=== PATIENT | female | born 1970 | race Caucasian/White ===

== ENCOUNTER → 2018-10-21 13:41 | Outpatient (CLI) | payer OTHER, SELFPAY ==
--- NOTE | 2018-10-21 13:50 | CT_ITS ---
STUDY: CT BRAIN WITHOUT CONTRAST REASON FOR EXAM: Female, 48 years old. Frontal headache area, left-sided head x2 months, no injury. RADIATION DOSAGE (If Supplied By Facility): CTDIvol = ( 60.81 ) mGy, DLP = ( 2042.94 ) mGycm TECHNIQUE: Transaxial CT imaging of the brain was performed without administration of intravenous contrast material. Individualized dose optimization techniques were used for this CT. COMPARISON: No relevant priors. FINDINGS: Normal soft tissue structures. Normal calvarium. Normal size ventricles and extra-axial spaces for the patient's age. Normal white matter tracts of the cerebral hemispheres. Normal basal ganglia and thalami. Normal brainstem. Normal cerebellum. There is no intracranial hemorrhage. There are no findings of an acute ischemic infarction. Normal visualized paranasal sinuses. CT/Brain/Head without Contrast IMPRESSION: Normal unenhanced CT scan of the brain. Electronically Signed: Tali Ferreira MD at 7:05 EDT , Service support ,
== END ==
PROVIDERS: Family Provider Family Medicine; PCP Family Medicine; Referring Provider Family Medicine; Visit Provider Family Medicine
DX: R51 Headache (principal)
CPT/HCPCS: 70450

== ENCOUNTER 2021-12-26 02:36 | Observation (INO) | payer OTHER, SELFPAY ==
[2021-12-26 02:38] VITALS: BP 155/95; PULSE 75; RESP 16; TEMP 36.4; O2SAT 99; BMI 32.6
--- NOTE | 2021-12-26 02:47 | CT_ITS ---
STUDY: CT ABDOMEN AND PELVIS WITH CONTRAST REASON FOR EXAM: Female, 51 years old. Left lower quadrant pain and hematochezia RADIATION DOSAGE (If Supplied By Facility): CTDIvol = ( 17.21 ) mGy, DLP = ( 899.48 ) mGycm TECHNIQUE: Transaxial images were obtained from the dome of the diaphragm to the symphysis pubis without oral contrast. IV 100mL Isovue-300 was administered. Sagittal and coronal images were reconstructed. Individualized dose optimization techniques were used for this CT. COMPARISON: None. FINDINGS: The visualized lung bases are unremarkable. The visualized portions of the heart are within normal limits. Normal liver. Normal gallbladder and extrahepatic biliary system. Normal spleen. Normal pancreas. Normal bilateral adrenal glands. Normal right kidney. Normal left kidney. Normal bilateral ureters. Normal visualized stomach. Normal small intestine. Mild concentric mucosal wall thickening of the descending colon with mild associated pericolonic inflammatory stranding. Appendix is surgically absent. Normal abdominal aorta. Normal inferior vena cava. Normal retroperitoneum. Normal urinary bladder. Uterus is surgically absent. Normal abdominal wall. Chronic bilateral L5 pars defects. CT/Abdomen/Pelvis W IV Cont ONLY IMPRESSION: Mild inflammation of the descending colon, potentially representing a colitis. Electronically Signed: Magan Charlton MD at 4:18 EDT ,
--- NOTE | 2021-12-26 02:49 | EDS_ITS ---
HPI HPI - GI History of Present Illness Chief Complaint: Abd Pain Informant: patient and spouse/S.O. Abdominal Pain/Flank Pain Onset: Hours (several) Context: Gradual Onset Timing: Continuous and Waxes and wanes Quality: Aching and Cramping Location: - (across lower abd, worse LLQ) Current Severity: Moderate Maximum Severity: Moderate Worsened by: Nothing Relieved by: Nothing Nausea/Vomiting/Emesis GI Symptom: Positive for Nausea and Vomiting Quality: Positive for Nonbilious; Negative for Blood streaks, Coffee ground or Hematemesis Diarrhea/Melena/Hematochezia GI Symptom: Positive for Diarrhea and Hematochezia; Negative for Melena Onset: Today Stool Quality: Positive for Loose Severity: Moderate Associated Symptoms Associated Symptoms: Negative for Dysuria, Frequency, Hematuria or Urgency Narrative Narrative: Patient started having lower abdominal pain tonight, gradually became worse, associated with nausea and vomiting when this would happen and as well as a bloody loose stool, then the symptoms would ease until they worsened again and she would have another bloody bowel movement. Never had this before. Pain is worse in the left lower quadrant. No urinary symptoms. No shortness of breath. No rectal bleeding in between bloody stools. She has some discomfort in her low back. It is nonlateralizing. No fevers or chills. She has a history of prior laparoscopies for endometriosis, she had a hysterectomy, she had an appendectomy and then had to have another surgery for it for some reason, this was all remote no recent surgeries. [facility] Medical History (Updated 12/26/21 @ 04:[address] Dom Wilkerson MD) Endometriosis GERD (gastroesophageal reflux disease) Reflux esophagitis Home Medications NK 12/26/21 [History Last Taken Unknown] Allergy/AdvReac Type Severity Reaction Status Date / Time No Known Allergies Allergy Verified 12/26/21 02:37 Surgical History (Updated 12/26/21 @ 02:[address] Dom Wilkerson MD) H/O laparoscopy History of appendectomy History of hysterectomy Hx of tonsillectomy Social History Smoking Status: Former smoker ROS ROS ED Constitutional Constitutional ED: Reports malaise; Denies chills or fever(s) Eyes Eyes: Denies change in vision or diplopia ENT ENT ED: Denies rhinorrhea or sore throat Cardiovascular Cardiovascular: Denies chest pain or palpitations Respiratory/Chest Respiratory/Chest: Denies cough or dyspnea Gastrointestinal Gastrointestinal: Reports as per HPI, abdominal pain, diarrhea, hematochezia, nausea and vomiting; Denies melena Genitourinary Genitourinary ED: Denies dysuria or hematuria Musculoskeletal Musculoskeletal: Reports back pain; Denies neck pain Integumentary Denies abscess or rash Neurologic Neurologic: Denies headache(s), paresthesias or weakness Psychiatric Psychiatric: Denies anxiety or suicidal thoughts EXAM Physical Exam Const Vital Signs: 12/26/21 02:38 12/26/21 04:39 Temperature 97.6 F L 97.9 F Temperature Source Temporal Temporal Pulse Rate 75 90 Respiratory Rate 16 16 Blood Pressure 155/95 H 119/73 Blood Pressure Mean 115 88 Pulse Ox 99 96 Oxygen Delivery Method Room Air Room Air Positive well nourished and well developed Constitutional Narrative: Appears malaised but in no distress. Able to talk, but has do most of the talking for her. General Appearance ED: well developed and NAD HEENT Reports moist mucous membranes normocephalic and atraumatic Eyes PERRL and EOMs intact bilaterally Neck full ROM and supple Resp normal respiratory effort and clear to auscultation bilaterally Cardio regular rate, regular rhythm and no murmurs Rate: Negative for tachycardic GI non-distended GI Narrative: Diffuse abdominal tenderness. No guarding or rebound. No pulsatile mass palpable. Auscultation: normoactive bowel sounds Palpation: soft Back/Spine no CVA tenderness General Back: other FROM Extremity normal to inspection General Extremety ED: Negative for edema, pulses abnormal or tenderness General Extremity: Negative for edema or pulses abnormal Neuro oriented x3, CN's II-XII intact bilaterally and no sensory deficits noted Sensorium / Orientation: awake and alert Motor Exam: strength 5/5 throughout Skin no rashes or lesions noted and no wounds MDM MDM MDM Narrative Medical decision making narrative: With her pain and tenderness in the left lower quadrant in addition to rectal bleeding, CT was obtained in addition to basic labs. This showed mildly elevated liver enzymes which are nonspecific, no sign of a biliary obstruction with normal bilirubin, her white blood count is at the high end of normal without bandemia, and CT shows signs of mild descending colitis without evidence of diverticulitis. Her hemoglobin is stable/normal, and her vital signs have been normal. She required retreatment of IV analgesics and antiemetic, and is not feeling well, when offered admission she prefers this. We will treat empirically for possible infection, will start with Cipro & Flagyl. Lab Data Attestation: I reviewed the patient's lab results. Labs: Laboratory Results - last 24 hr 12/26/21 12/26/21 02:58 02:58 WBC 10.1 RBC 4.67 Hgb 13.9 Hct 41.8 MCV 89.5 MCH 29.8 MCHC 33.3 RDW Std Deviation 42.3 RDW Coeff of Ramos 13.0 Plt Count 298 MPV 9.4 Immature Gran % (Auto) 0.500 Neut % (Auto) 73.5 H Lymph % (Auto) 17.6 L [place] % (Auto) 7.3 Eos % (Auto) 0.4 Baso % (Auto) 0.7 Absolute Neuts (auto) 7.4 Absolute Lymphs (auto) 1.77 Nucleated RBC % 0 Sodium 142 Potassium 4.3 Chloride 108 H Carbon Dioxide 26.0 Anion Gap 8 BUN 16 Creatinine 0.98 Estim Creat Clear Calc 56.18 Est GFR (MDRD) Af Amer 76 Est GFR (MDRD) Non-Af 63 BUN/Creatinine Ratio 16.2 Glucose 124 H Calcium 9.5 Total Bilirubin 0.20 AST 43 H ALT 112 H Alkaline Phosphatase 169 H Total Protein 7.3 Albumin 3.6 Globulin 3.7 Albumin/Globulin Ratio 1.0 Lipase 116 Radiography Diagnostic Testing: Clinical Impression(s) from Imaging Studies Abdomen/Pelvis CT 12/26/21 02:47 IMPRESSION: Mild inflammation of the descending colon, potentially representing a colitis. Electronically Signed: Magan Charlton MD at 4:18 EDT , Discharge Plan Dx/Rx/DC Orders Clinical Impression: Acute hemorrhagic colitis Disposition Disposition: [facility]
[2021-12-26] MEDS: Morphine 4 MG/ML Syringe IV ×2 (02:56→04:23)
[2021-12-26] MEDS: 0.9% Normal Saline 1,000 ML 1000 ML IV (02:56)
[2021-12-26] MEDS: Ondansetron 4 MG/2 ML Vial IV (02:56)
[2021-12-26 03:03] LABS: Absolute Lymphocyte Count 1.77 X10^3/uL (0.83-4.51); Absolute Neutrophil Count 7.4 X10^3/uL (2.0-7.7); Basophil# 0.07 X10^3/uL; Basophil% 0.7 % (0-1); Eosinophil# 0.04 X10^3/uL; Eosinophils% 0.4 % (0-5); Hematocrit 41.8 % (37-47); Hemoglobin 13.9 g/dL (12.0-15.0); Lymphocyte # 1.77 X10^3/ul (0.83-4.51); Lymphocyte % 17.6 % (19-41); Mean Corp Hgb Conc 33.3 g/dL (32-36); Mean Corpuscular Hgb 29.8 pg (27.0-32.0); Mean Corpuscular Volume 89.5 fL (81-99); Mean Platelet Vol. 9.4 fl (6.2-12.0); Monocyte# 0.74 X10^3/uL; Monocyte% 7.3 % (0-10); NRBC Flagged by Analyzer 0 % (0-5); Neutrophil % 73.5 % (47-70); Platelet Count 298 K/mm3 (150-450); RBC Distribution Width SD 42.3 fl (35.1-43.9); Red Blood Count 4.67 M/mm3 (4.2-5.4); White Blood Count 10.1 K/mm3 (4.4-11.0)
[2021-12-26 03:20] LABS: AST(SGOT) 43 U/L (15-37); Alanine Aminotransfer ALT/SGPT 112 U/L (13-56); Albumin, Serum 3.6 g/dL (3.2-5.0); Alkaline Phosphatase 169 U/L (45-117); Anion Gap 8 (5-15); BUN 16 mg/dL (7-18); BUN/Creat Ratio 16.2 RATIO (10-20); Calcium,Total 9.5 mg/dL (8.5-10.1); Chloride 108 mmol/L (98-107); Creatinine, Serum 0.98 mg/dL (0.55-1.02); EST Glomerular Filtration Rate 63 mL/min (>60); Est Glom Filt Rate - Afr Amer 76 mL/min (>60); Estimated Creatinine Clearance 56.18 ml/min; Globulin 3.7 g/dL (2.2-4.2); Glucose 124 mg/dL (74-106); Lipase 116 U/L (73-393); Potassium 4.3 mmol/L (3.5-5.1); Protein, Total 7.3 g/dL (6.4-8.2); Sodium Level 142 mmol/L (136-145)
[2021-12-26] MEDS: Metoclopramide 10 MG/2 ML Vial 5 MG IV (04:22)
[2021-12-26 04:39] VITALS: BP 119/73; PULSE 90; RESP 16; TEMP 36.6; O2SAT 96
--- NOTE | 2021-12-26 04:43 | HP.PCM.HOS_ITS ---
HPI - General General Date of Admission: 12/26/21 Date of Service: 12/26/21 Chief Complaint: Abdominal pain HPI Narrative FRANK VENTURA, is a 51 F with a significant history of chronic constipation who presents to the emergency department with abdominal pain. Her abdominal pain is located at the left lumbar region and it radiates to her entire abdomen. She described the pain as sharp. The pain is episodic. The pain worsens with move ments. Of note as patient was coming to the hospital the pain worsened when she hit the bumps. She last ate dinner at [facility]. Although her ate the food at [facility] too he did not have any such symptoms. Of note patient started having hard stools and then it was followed with loose stools. Her stools were mixed with blood. On presentation patient showed pictures of bloody stool. Patient's pain improved with morphine received at emergency department. She reports chills at home. Associated with her symptoms is nausea and vomiting. She described the pain as excruciating. Associated with her symptoms is heartburn.. Patient report that last colonoscopy was about 5 years ago and it was with Dr. Kan. [facility] Medical History (Updated 12/26/21 @ 04:[address] Dom Wilkerson MD) Endometriosis GERD (gastroesophageal reflux disease) Reflux esophagitis Home Medications NK 12/26/21 [History Last Taken Unknown] Allergy/AdvReac Type Severity Reaction Status Date / Time No Known Allergies Allergy Verified 12/26/21 02:37 Family History Other Brain tumor Heart disease Surgical History H/O laparoscopy History of appendectomy History of hysterectomy Hx of tonsillectomy Social History Smoking Status: Former smoker ROS ROS Narrative Pertinent positives and pertinent negatives as noted in HPI. All other systems were reviewed and are negative. Vital Signs Vital Signs Vital Signs: 12/26/21 02:38 12/26/21 04:39 Temperature 97.6 F L 97.9 F Temperature Source Temporal Temporal Pulse Rate 75 90 Respiratory Rate 16 16 Blood Pressure 155/95 H 119/73 Blood Pressure Mean 115 88 Pulse Ox 99 96 Oxygen Delivery Method Room Air Room Air Weight Weight: 83.6 kg Body Mass Index (BMI) 32.6 Physical Exam Narrative Physical exam: General: Well-nourished, well-developed. Head: Normocephalic, atraumatic, no tenderness Eyes: Vision is grossly intact. EOMI ENT, no trauma, moist mucous membranes, no rhinorrhea Neck: Nontender, full range of motion. CVS: Regular rate and rhythm. S1-S2 present. No murmur, gallop or rub. Respiratory : clear to auscultation bilaterally, chest wall nontender, no wheezing Abdomen: Soft, nondistended, normal bowel sounds, no masses : Deferred Back: Nontender, no CVA tenderness. Extremities: Nontender full range of motion, no trauma Skin: Normal color, no trauma, abrasions Neuro: Alert, oriented, cranial nerves II through XII grossly intact. Psychiatry: Normal mood. Normal affect. Not depressed. Not anxious. Results Lab / Micro Data Result Diagrams: 12/26/21 02:58 12/26/21 02:58 Labs: Laboratory Results - last 24 hr 12/26/21 02:58: WBC 10.1, RBC 4.67, Hgb 13.9, Hct 41.8, MCV 89.5, MCH 29.8, MCHC 33.3, RDW Std Deviation 42.3, RDW Coeff of Ramos 13.0, Plt Count 298, MPV 9.4, Immature Gran % (Auto) 0.500, Neut % (Auto) 73.5 H, Lymph % (Auto) 17.6 L, [place] % (Auto) 7.3, Eos % (Auto) 0.4, Baso % (Auto) 0.7, Absolute Neuts (auto) 7.4, Absolute Lymphs (auto) 1.77, Nucleated RBC % 0 12/26/21 02:58: Sodium 142, Potassium 4.3, Chloride 108 H, Carbon Dioxide 26.0, Anion Gap 8, BUN 16, Creatinine 0.98, Estim Creat Clear Calc 56.18, Est GFR (MDRD) Af Amer 76, Est GFR (MDRD) Non-Af 63, BUN/Creatinine Ratio 16.2, Glucose 124 H, Calcium 9.5, Total Bilirubin 0.20, AST 43 H, ALT 112 H, Alkaline Phosphatase 169 H, Total Protein 7.3, Albumin 3.6, Globulin 3.7, Albumin/Globulin Ratio 1.0, Lipase 116 Radiology Impression Abdomen/Pelvis CT 12/26/21 02:47 IMPRESSION: Mild inflammation of the descending colon, potentially representing a colitis. Electronically Signed: Magan Charlton MD at 4:18 EDT , Assessment & Plan Assessment/Plan (1) Acute hemorrhagic colitis: PLAN: Plan Abdomen and pelvis CT was visualized independent interpreted and I agree with radiologist interpretation above. CBC reviewed showed normal white count of 10.1. CMP shows elevated liver enzymes. Trend CMP. Supportive treatment with IV fluids. Shared decision to order clear liquid diet. Ciprofloxacin IV and metronidazole IV ordered at the emergency department and continued. Received morphine IV at emergency department and continued on as needed basis. Enteropathogenic panel ordered. Zofran IV ordered Upon discharge consider referral to GI/Surgery. Of note patient's had colonoscopy about [address] Kan, general surgery. Charges/Coding Visit Charges OBSV E&M: 11079 Initial observation care L3
[2021-12-26] MEDS: Ciprofloxacin 400 MG/200 ML BAG 200 MG IV ×2 (04:46→18:06)
[2021-12-26] MEDS: metroNIDAZOLE 500 MG/100 ML BAG 100 MG IV (04:56)
[2021-12-26] MEDS: 0.9% Normal Saline 1,000 ML 75 ML IV ×2 (06:00→18:06)
[2021-12-26] MEDS: Morphine 2 MG/ML Syringe IV ×4 (06:01→19:49)
[2021-12-26] MEDS: proCHLORPERazine 10 MG/2 ML Vial 5 MG IV ×3 (06:01→19:01)
[2021-12-26 06:05] VITALS: BMI 32.5
[2021-12-26] MEDS: 0.9% Saline Lock 10 ML Syringe IV ×2 (06:43→19:02)
[2021-12-26 09:00] VITALS: BP 98/60; PULSE 78; RESP 18; TEMP 36.8; O2SAT 97
--- NOTE | 2021-12-26 11:05 | CASEMGMT ---
SG SY assessment: Face to Face with patient for initial transition planning/care coordination assessment. SG SY introduced self and role at [facility], pt voices understanding and consents to assessment. Pt is lying in bed in no distress on room air. Pt is A/Ox4 and answers all questions appropriately. Pt's is at bedside during assessment.? Care providers, pharmacy,?and demographics verified. ? Presentation: Abd pain with blood in stool, N/V Admitting dx: Colitis PCP: Douglas Specialists: Lucius surgeon [facility] Insurance: [employer] Prescription Benefit:?[employer] Living Will/HPOA: Pt has LW/HPOA and is aware that they are not on file at [facility]. Pt states her , Chris Alas, is HPOA. LNOK: Chris Alas, /HPOA Living Arrangements: Pt lives with in 2 story home and states no concerns at home. Pt is independent with ADL's. Transportation: Pt drives self and states no transportation concerns. DME/HHC: Pt states no current DME or need for any further DME. Pt states no hx of HHC or SNF. Pt states no concerns with going home at time of discharge. 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 Pt states does not smoke cigarettes or drink ETOH. Pt states no further concerns/needs. CM to follow for any further discharge planning/needs. Advised pt to ask for CM if any further questions/concerns/needs arise, voices understanding. Pt Goal: Home Plan: [place] SG SY
--- NOTE | 2021-12-26 11:10 | CASEMGMT ---
SG SY assessment: Face to Face with patient for initial transition planning/care coordination assessment. SG SY introduced self and role at [facility], pt voices understanding and consents to assessment. Pt is lying in bed in no distress on room air. Pt is A/Ox4 and answers all questions appropriately. Pt's is at bedside during assessment.? Care providers, pharmacy,?and demographics verified. ? Presentation: Abd pain with blood in stool, N/V Admitting dx: Colitis PCP: Douglas Specialists: Lucius surgeon [facility]: [employer] Prescription Benefit:?[employer] Living Will/HPOA: Pt has LW/HPOA and is aware that they are not on file at [facility]. Pt states her , Chris Alas, is HPOA. LNOK: Chris Alas, /HPOA Living Arrangements: Pt lives with in 2 story home and states no concerns at home. Pt is independent with ADL's. Transportation: Pt drives self and states no transportation concerns. DME/HHC: Pt states no current DME or need for any further DME. Pt states no hx of HHC or SNF. Pt states no concerns with going home at time of discharge. 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 Pt states does not smoke cigarettes or drink ETOH. Pt states no further concerns/needs. CM to follow for any further discharge planning/needs. Advised pt to ask for CM if any further questions/concerns/needs arise, voices understanding. Pt Goal: Home Plan: [place] SG SY
[2021-12-26] MEDS: metroNIDAZOLE 500 MG Tablet PO ×2 (13:31→19:56)
[2021-12-26 15:00] VITALS: BP 98/57; PULSE 69; RESP 18; TEMP 36.8; O2SAT 95
[2021-12-26 17:19] VITALS: O2SAT 95
[2021-12-26 20:40] VITALS: BP 98/63; PULSE 87; RESP 16; TEMP 37.1; O2SAT 98
[2021-12-27] MEDS: 0.9% Saline Lock 10 ML Syringe IV (01:48)
[2021-12-27] MEDS: Morphine 2 MG/ML Syringe IV (01:48)
[2021-12-27] MEDS: Ondansetron 4 MG/2 ML Vial IV (01:48)
[2021-12-27 02:30] VITALS: BP 112/74; PULSE 74; RESP 16; TEMP 36.6; O2SAT 98
[2021-12-27] MEDS: Acetaminophen 325 MG Tablet 650 MG PO (05:34)
[2021-12-27] MEDS: metroNIDAZOLE 500 MG Tablet PO (05:34)
[2021-12-27 05:44] LABS: Absolute Lymphocyte Count 1.85 X10^3/uL (0.83-4.51); Absolute Neutrophil Count 5.4 X10^3/uL (2.0-7.7); Basophil# 0.04 X10^3/uL; Basophil% 0.5 % (0-1); Eosinophil# 0.07 X10^3/uL; Eosinophils% 0.9 % (0-5); Hematocrit 35.1 % (37-47); Hemoglobin 11.6 g/dL (12.0-15.0); Lymphocyte # 1.85 X10^3/ul (0.83-4.51); Lymphocyte % 23.1 % (19-41); Mean Corpuscular Hgb 29.1 pg (27.0-32.0); Mean Corpuscular Volume 88.2 fL (81-99); Monocyte% 7.5 % (0-10); NRBC Flagged by Analyzer 0 % (0-5); Neutrophil # 5.42 X10^3/uL (2.7-7.7); Neutrophil % 67.7 % (47-70); Platelet Count 238 K/mm3 (150-450); RBC Distribution Width SD 42.1 fl (35.1-43.9); Red Blood Count 3.98 M/mm3 (4.2-5.4)
--- NOTE | 2021-12-27 05:46 | EKG12_ITS ---
Test Reason : chest pressure Blood Pressure : / mmHG Vent. Rate : 080 BPM Atrial Rate : 080 BPM P-R Int : 134 ms QRS Dur : 078 ms QT Int : 370 ms P-R-T Axes : 049 085 051 degrees QTc Int : 426 ms Normal sinus rhythm Nonspecific ST abnormality Abnormal ECG Confirmed by KATHLEEN TIERNEY, GEOVANNA ([id number]), editor trade journal ISABEL LO ([id number]) on 12/30/2021 10:34:05 AM Referred By: Confirmed By:GEOVANNA WANG MD
--- NOTE | 2021-12-27 05:48 | PCM.PN.BLA ---
Progress Note Nurse reported patient complains of hand swelling. IV fluid discontinued. Also nurse reported the patient has right-sided chest pain. EKG and troponin ordered. Of note on presentation patient had hemorrhagic colitis. No aspirin ordered at this time.
[2021-12-27 06:44] LABS: ALB/GLOB Ratio 0.9 RATIO (0.9-2.4); AST(SGOT) 26 U/L (15-37); Alanine Aminotransfer ALT/SGPT 68 U/L (13-56); Albumin, Serum 2.8 g/dL (3.2-5.0); Alkaline Phosphatase 129 U/L (45-117); Anion Gap 5 (5-15); BUN 9 mg/dL (7-18); BUN/Creat Ratio 11.3 RATIO (10-20); Calcium,Total 8.8 mg/dL (8.5-10.1); Chloride 109 mmol/L (98-107); EST Glomerular Filtration Rate 81 mL/min (>60); Est Glom Filt Rate - Afr Amer 98 mL/min (>60); Estimated Creatinine Clearance 68.82 ml/min; Globulin 3.1 g/dL (2.2-4.2); Glucose 101 mg/dL (74-106); Potassium 3.8 mmol/L (3.5-5.1); Protein, Total 5.9 g/dL (6.4-8.2); Sodium Level 140 mmol/L (136-145)
[2021-12-27 06:54] VITALS: O2SAT 95
[2021-12-27 07:00] LABS: Troponin-I HS 4 pg/mL (3.0-54.0)
[2021-12-27 08:30] VITALS: BP 102/71; PULSE 72; RESP 18; TEMP 36.7; O2SAT 95
[2021-12-27 08:33] LABS: Troponin-I HS 3 pg/mL (3.0-54.0)
[2021-12-27] MEDS: Ciprofloxacin 400 MG/200 ML BAG 200 MG IV (09:17)
--- NOTE | 2021-12-27 09:20 | DCINST_ITS ---
Discharge Instructions Diet Discharge Diet: No restrictions Activity Discharge Activity: Return to Normal Activity Dressing / Incision Call your doctor if you observe: Fever of 101 or Higher, Shortness of breath, Dizziness, Fainting spells, Swelling in the ankles, Chest pain and Increased palpitations (irregular heartbeat) Follow Up Care Test Results: Test results from this visit will be discussed in further detail at your follow- up appointment, if applicable. Discharge Plan Admission Admit Date/Time: 12/26/21 04:47 Attending Provider: Bryan Segura Primary Care Provider: Zacarias Cole Consulting Providers: Avery Salas Instructions Additional Instructions / Restrictions: Follow-up with your primary care doctor in 3 to 5 days to obtain another hemoglobin to monitor your anemia. Discharge Orders/Prescriptions Prescriptions: No Action NK Referrals / Follow Up: Jose Rodriguez DO [STAFF PHYSICIAN] - Within 1 Month Zacarias Cole MD [Primary Care Provider] - Within 1 Week Disposition Disposition (needs filled in before D/C Order can be placed): Home, Self Care
--- NOTE | 2021-12-27 09:31 | PCM.DC.SUM ---
Providers Date of Admission: 12/26/21 Primary Care Physician: Dr. Zacarias Cole MD Reason For Visit: ACUTE HEMORRHAGIC COLITIS Diagnosis Discharge Diagnosis (1) Acute hemorrhagic colitis: Status: Acute Code(s): K52.9 - Noninfective gastroenteritis and colitis, unspecified Medications at Discharge Home Medications ciprofloxacin HCl 500 mg tablet (Cipro) 500 mg PO BID #14 tabs 12/27/21 metronidazole 500 mg tablet 500 mg PO Q8H 7 days #21 tabs 12/27/21 oxycodone 5 mg tablet 5 mg PO TID PRN pain 3 days #10 tabs 12/27/21 Hospital Course Operations None Procedures None Summary of Care Provided Minutes Spent on Discharge: 40 Hospital Course: Per HPI: FRANK VENTURA, is a 51 F with a significant history of chronic constipation who presents to the emergency department with abdominal pain.? Her abdominal pain is located at the left lumbar region? and it radiates to her entire abdomen.? She described the pain as sharp.? The pain is episodic.? The pain worsens with movements.? Of note as patient was coming to the hospital the pain worsened when she hit the bumps. She last ate dinner at [facility].? Although her ate the food at [facility] too he did not have any such symptoms.? Of note patient started having hard stools and then it was followed with loose stools.? Her stools were mixed with blood.? On presentation patient showed pictures of bloody stool. Patient's pain improved with morphine received at emergency department.? She reports chills at home.? Associated with her symptoms is nausea and vomiting.? She described the pain as excruciating.? Associated with her? symptoms is heartburn.. Patient report that last colonoscopy was about 5 years ago and it was with Dr. Kan. Hospital Course: 1. Ischemic versus infectious colitis?51-year-old female presents to the hospital with a left-sided abdominal pain. She denies any bloody emesis however she has been having bloody bowel movements. CT scan was read as a mild colitis on the left side especially in the watershed region. She has almost complete pain resolution today but she still has some bloody bowel movements but no bloody emesis or nausea of any kind. Hemoglobin dropped to 11.6 from 13.9. She is tolerating a light diet and I discussed with her the possibility for discharge today she expressed understanding of the risk benefits going home and wants to go home today. I discussed with her that it may be best to stay 1 more day to follow the hemoglobin however she feels great and wants to go home. I discussed with her and her at length the signs and symptoms of worsening anemia including lightheadedness and dizziness. But also if she notices increased blood in her bowel movements or worsening pain that she is to come back to the hospital. Plan will be for 7 more days of Cipro and Flagyl as well as 3 days of oxycodone for pain control. I recommend that she follow-up with her PCP in 3 to 5days for repeat CBC to monitor her hemoglobin. I also recommended she follow-up with gastroenterology as an outpatient within a month for colonoscopy. She improved faster than anticipated. Physical Exam Const alert, oriented x3 and no apparent distress General Appearance: cooperative HEENT normocephalic and moist oral mucous membranes Eyes PERRL, EOMs intact bilaterally and conjunctivae normal Neck supple and no JVD Resp normal respiratory effort, no retractions, no use of accessory muscles and clear to auscultation bilaterally Auscultation: Negative for crackles, rales, rhonchi or wheezes Cardio regular rate, regular rhythm, S1 normal heart sound, S2 normal heart sound and no murmurs GI soft to palpation, non-tender and non-distended; Negative for hepatosplenomegaly Extremity no clubbing, cyanosis or edema Skin no rashes or lesions noted Neuro no focal motor deficits and no sensory deficits noted Psych affect normal Appearance: appropriate Weight / BMI Weight Weight: 183 lb 10.321 oz Body Mass Index (BMI) 32.5 ABG / Lab / Microbiology Data Result Diagrams: 12/27/21 05:22 12/27/21 05:22 Laboratory: Laboratory Results - last 24 hr 12/27/21 05:22: Sodium 140, Potassium 3.8, Chloride 109 H, Carbon Dioxide 26.0, Anion Gap 5, BUN 9, Creatinine 0.80, Estim Creat Clear Calc 68.82, Est GFR (MDRD) Af Amer 98, Est GFR (MDRD) Non-Af 81, BUN/Creatinine Ratio 11.3, Glucose 101, Calcium 8.8, Total Bilirubin 0.40, AST 26, ALT 68 H, Alkaline Phosphatase 129 H, Total Protein 5.9 L, Albumin 2.8 L, Globulin 3.1, Albumin/Globulin Ratio 0.9 12/27/21 05:22: WBC 8.0, RBC 3.98 L, Hgb 11.6 L, Hct 35.1 L, MCV 88.2, MCH 29.1, MCHC 33.0, RDW Std Deviation 42.1, RDW Coeff of Ramos 13.0, Plt Count 238, MPV 9.0, Immature Gran % (Auto) 0.300, Neut % (Auto) 67.7, Lymph % (Auto) 23.1, Bergen % (Auto) 7.5, Eos % (Auto) 0.9, Baso % (Auto) 0.5, Absolute Neuts (auto) 5.4, Absolute Lymphs (auto) 1.85, Nucleated RBC % 0 12/27/21 05:22: Troponin I High Sens 4 12/27/21 07:47: Troponin I High Sens 3 Microbiology: Microbiology 12/26/21 13:40 Stool Enteric Bacteriology - Final D/C Instructions Discharge Diet: No restrictions Call your doctor if you observe: Fever of 101 or Higher, Shortness of breath, Dizziness, Fainting spells, Swelling in the ankles, Chest pain and Increased palpitations (irregular heartbeat) Meaningful Use Info Meaningful Use Diagnoses (Choose all that apply): None applicable Discharge Plan Admission Admit Date/Time: 12/26/21 04:47 Attending Provider: Bryan Segura Primary Care Provider: Zacarias Cole Consulting Providers: Avery Salas Instructions Additional Instructions / Restrictions: Follow-up with your primary care doctor in 3 to 5 days to obtain another hemoglobin to monitor your anemia. Discharge Orders/Prescriptions Prescriptions: New ciprofloxacin HCl [Cipro] 500 mg tablet 500 mg PO BID Qty: 14 0RF metronidazole 500 mg tablet 500 mg PO Q8H 7 Days Qty: 21 0RF oxycodone 5 mg tablet 5 mg PO TID PRN (Reason: pain) 3 Days Qty: 10 0RF Referrals / Follow Up: Jose Rodriguez DO [STAFF PHYSICIAN] - Within 1 Month Zacarias Cole MD [Primary Care Provider] - Within 1 Week Disposition Disposition (needs filled in before D/C Order can be placed): Home, Self Care Charges/Coding Visit Charges Inpatient E&M: 80717 Disch Hosp
--- NOTE | 2021-12-27 10:04 | PHA.DC.MC ---
Pharmacy Service has performed discharge medication reconciliation and counseling for this patient. 1. CIPROFLOXACIN 500MG PO BID X 7 DAYS 2. METRONIDAZOLE 500MG PO Q8H X 7 DAYS 3. OXYCODONE 5MG PO TID PRN PAIN The patient's discharge medication list was reviewed for discrepancies and discrepancies were resolved. Home Medications ciprofloxacin HCl 500 mg tablet (Cipro) 500 mg PO BID #14 tabs 12/27/21 metronidazole 500 mg tablet 500 mg PO Q8H 7 days #21 tabs 12/27/21 oxycodone 5 mg tablet 5 mg PO TID PRN pain 3 days #10 tabs 12/27/21 The patient was counseled on the following discharge medications and changes in medications for homegoing were reviewed. The Reason for Use, instructions for use, and potential side effects were reviewed for all new medications. The patient's questions regarding all of their medications were answered. The patient was able to verbally demonstrate an understanding of their discharge medications.
== END 2021-12-27 10:24 | disposition home or self-care (01) ==
LOC: ED 04:40 → PCU 05:01
PROVIDERS: Admitting Provider Hospitalist; Emergency Provider Emergency Medicine; PCP Family Medicine; Visit Provider Family Medicine
DX: K52.9 Noninfective gastroenteritis and colitis, unspecified (principal); K62.5 Hemorrhage of anus and rectum; K21.00 Gastro-esophageal reflux disease with esophagitis, without bleeding; R10.814 Left lower quadrant abdominal tenderness; Z87.891 Personal history of nicotine dependence
CPT/HCPCS: 36415; 74177; 80053; 83690; 84484; 85025; 87506; 93005; 96361; 96365; 96366; 96367; 96368; 96375; 96376; 99218; 99284; J7030; J7050; Q9967; A4216; G0378; J0744; J2405

== ENCOUNTER → 2022-02-14 | Outpatient (CLI) | payer OTHER, SELFPAY ==
[2022-02-14 16:10] LABS: Erythrocyte Sedimentation Rate 25 mm/hr (0-30)
[2022-02-14 16:12] LABS: Absolute Lymphocyte Count 1.82 X10^3/uL (0.83-4.51); Absolute Neutrophil Count 3.7 X10^3/uL (2.0-7.7); Basophil# 0.05 X10^3/uL; Basophil% 0.8 % (0-1); Eosinophils% 1.6 % (0-5); Hematocrit 44.8 % (37-47); Hemoglobin 14.7 g/dL (12.0-15.0); Lymphocyte # 1.82 X10^3/ul (0.83-4.51); Lymphocyte % 29.5 % (19-41); Mean Corp Hgb Conc 32.8 g/dL (32-36); Mean Corpuscular Hgb 28.6 pg (27.0-32.0); Mean Corpuscular Volume 87.2 fL (81-99); Mean Platelet Vol. 9.2 fl (6.2-12.0); Monocyte% 8.1 % (0-10); NRBC Flagged by Analyzer 0 % (0-5); Neutrophil # 3.66 X10^3/uL (2.7-7.7); Neutrophil % 59.5 % (47-70); Platelet Count 294 K/mm3 (150-450); RBC Distribution Width CV 12.5 % (11.6-14.6); RBC Distribution Width SD 39.7 fl (35.1-43.9); Red Blood Count 5.14 M/mm3 (4.2-5.4); White Blood Count 6.2 K/mm3 (4.4-11.0)
[2022-02-14 16:45] LABS: ALB/GLOB Ratio 0.9 RATIO (0.9-2.4); AST(SGOT) 21 U/L (15-37); Alanine Aminotransfer ALT/SGPT 37 U/L (13-56); Albumin, Serum 3.6 g/dL (3.2-5.0); Alkaline Phosphatase 129 U/L (45-117); Anion Gap 7 (5-15); BUN 15 mg/dL (7-18); BUN/Creat Ratio 17.7 RATIO (10-20); CPK Total, Creatine Kinase 61 U/L (26-192); CRP 4.04 mg/L (0.0-3.0); Calcium,Total 9.3 mg/dL (8.5-10.1); Chloride 104 mmol/L (98-107); Creatinine, Serum 0.85 mg/dL (0.55-1.02); EST Glomerular Filtration Rate 75 mL/min (>60); Est Glom Filt Rate - Afr Amer 91 mL/min (>60); Glucose 83 mg/dL (74-106); LDH 148 U/L (84-246); Potassium 3.9 mmol/L (3.5-5.1); Protein, Total 7.6 g/dL (6.4-8.2); Sodium Level 138 mmol/L (136-145)
== END | disposition home or self-care (01) ==
LOC: LAB 15:10
PROVIDERS: PCP Family Medicine; Referring Provider Nurse Practitioner Adult Health; Visit Provider Nurse Practitioner Adult Health
DX: K55.9 Vascular disorder of intestine, unspecified (principal)
CPT/HCPCS: 36415; 80053; 82550; 83615; 85025; 85652; 86140

== ENCOUNTER 2022-04-21 05:26 | Day surgery (SDC) | payer OTHER, SELFPAY ==
[2022-04-21] VITALS (9 sets, daily range): BP systolic 101–119; BP diastolic 67–87; PULSE 71–87; RESP 16–18; TEMP 36.1–36.5; O2SAT 98–100; BMI 33.3
--- NOTE | 2022-04-21 | ESO_PTH ---
PATIENT: FRANK VENTURA LOC: [facility] U#:[id number] AGE/SX: 51/F ROOM: RE04/21/[address]: Dr. Jose Rodriguez DO : 1970 BED: DIS: 04/21/2022 SPEC #: [id number] RECD: 04/21/22 12:10 STATUS: VIKAS JASPAL #: [id number] BRAD: 04/21/22 00:[address]: Jose Rodriguez DEPT: SURGICAL PATHOLOGY RECD BY: Magan Kenney ENTERED: 04/21/22 12:11 SP TYPE: UMA GRECO DR: Dr. Zacarias Cole MD Tissues: A - Esophagus, NOS B - Duodenum, NOS C - Ileum, NOS D - Ascending colon E - COLON BIOPSY Procedures: Special Stain Group II Surgery Specimen Level IV Alcian Blue/PAS (control) HEADER OPERATION: Colonoscopy, EGD ([facility] [place]) with biopsies PRE-OP DIAGNOSIS: Ischemic colitis, GERD, chronic constipation TISSUE SUBMITTED: A ? Distal esophagus biopsy, B ? Duodenum biopsy, C ? Terminal ileum biopsy, D ? Ascending polyp biopsy, E ? Hepatic flexure polyp biopsy MICROSCOPIC DIAGNOSIS A. Distal esophagus, biopsy: Gastroesophageal junctional mucosa with chronic inflammation. Focal changes of reflux. No evidence of goblet cell metaplasia. See comment. B. Duodenum, biopsy: No pathologic change. C. Terminal ileum, biopsy: No pathologic change. D. Ascending colon polyp, biopsy: Tubular adenoma. E. Colonic polyp at hepatic flexure, biopsy: Tubular adenoma. AM:chadd 04/22/2022 COMMENT A. Alcian blue/PAS stain with matched control supports the above diagnosis. MICROSCOPIC DESCRIPTION Slides are reviewed. GROSS DESCRIPTION A - Received in fixative is one container labeled with the patient's name and designated distal esophagus. The specimen consists of two irregular fragments of light jones soft tissue that in aggregate measure 1 x 0.6 x 0.1 cm. The specimen is totally submitted in one cassette. B - Received in fixative is one container labeled with the patient's name and designated duodenum biopsy. The specimen consists of two irregular fragments of light jones soft tissue that in aggregate measure 1 x 0.3 x 0.1 cm. The specimen is totally submitted in one cassette. C - Received in fixative is one container labeled with the patient's name and designated terminal ileum biopsy. The specimen consists of multiple irregular fragments of light jones soft tissue that in aggregate measure 1 x 0.5 x 0.1 cm. The specimen is totally submitted in one cassette. D - Received in fixative is one container labeled with the patient's name and designated ascending polyp. The specimen consists of two irregular fragments of light jones soft tissue that in aggregate measure 0.6 x 0.3 x 0.1 cm. The specimen is totally submitted in one cassette. E - Received in fixative is one container labeled with the patient's name and designated hepatic flexure polyp biopsy. The specimen consists of one irregular fragment of light jones soft tissue that measures 0.3 x 0.3 x 0.1 cm. The specimen is totally submitted in one cassette. / AM:chadd 04/21/2022 TC:5 CPT: 80681 x5, 22931
[2022-04-21] MEDS: Lactated Ringers 1,000 ML 15 ML IV (06:11)
--- NOTE | 2022-04-21 06:39 | PCM.HP.BLA ---
History and Physical Date of Admission: 04/21/22 RONI VENTURA, is a 51 F who presents to the office today for f/u hospitalization at [facility] 12/26/21-12/27/21 for acute hemorrhagic colitis--ischemic colitis vs infectious colitis. She presented to ED with severe pain left lower abd that radiated throughout the abdomen, blood in stools, nausea, vomiting, chills. CT showed mild colitis on left. Hgb dropped from 13.9 to 11.6. She was discharged on cipro and flagyl x 7 days. Has constipation chronically, worse with menopause, like cement, very difficult to pass, tried miralax w/o relief. lots of bloating and gas, some nausea. Takes omeprazole for GERD. 12/26/21 and 12/27/21 labs: hgb 13.9 --> 11.6 AST 43 --> 26 ALT 112 --> 68 alk phos 169 --> 129 albumin 3.6 --> 2.8 lipase 116 enteric pathogens negative Approx 2001 she had burst appendix, drain placed LLQ, then sick x 6 mos, was discovered that remnant of appendix remained so she had another surgery. Multiple laparoscopies for endometriosis. Had attacks of LLQ pain in 2017 and before. Had hysterectomy, was told left ovary was attached to colon and pelvic floor. 2017 egd and colonoscopy by gen surg--mild gastritis, neg H pylori, neg bhatia's, no pathology in TI or colon. 12/26/21 CT/Abdomen/Pelvis W IV Cont ONLY IMPRESSION: Mild inflammation of the descending colon, potentially representing a colitis. PMH: endometriosis, GERD, RA PSH: appy, hysterectomy, tonsillectomy ROS Const Constitutional: Positive for weakness; No fatigue ENT ENT: No difficulty swallowing Cardio Cardiology: Positive for leg pain with exertion Gastro GI: Positive for abdominal pain, bloating, change in bowel habits, constipation, heartburn, excessive flatus and nausea/dyspepsia; No belching, change in stool character, coffee ground emesis, cramping, diarrhea, difficulty swallowing, feeling full early, incontinent of stools, Vomiting blood/hematemesis, Blood in stool, loose stools, Black,tarry stools, pain with swallowing, vomiting or other Musc Musculoskeletal: Positive for joint pain, back pain, muscle cramps, muscle weakness, numbness, stiffness, tingling, Arthritis, sciatica, restless legs, leg pain at night and leg pain with exertion Skin Skin: Positive for dry skin; No yellowing of the eye or itchy eyes Neuro Neurology: Positive for weakness, numbness, tingling and restless legs Psych Psychiatric: No anxiety and No depression Endo Endocrine: No fatigue Aller/Imm Allergy/Immunologic: No itchy eyes Aiden/Lymp Hematologic/Lymphatic: No easy bleeding or easy bruising Exam Const General: cooperative, comfortable and no acute distress Nutritional Appearance: obese Orientation: alert, awake and oriented x3 HENMT Head: normal to inspection Eyes General: appearance normal, both eyes and all related structures Resp Effort & Inspection: normal respiratory effort GI Inspection: normal to inspection Palpation: soft, no hepatosplenomegaly, no masses and tender (generalized) Skin General: no jaundice Neuro Speech: speech normal Gait: normal gait Quality Reporting Tobacco Screening ([facility] 138) Smoking Status: Former smoker Assessment and Plan Assessment and Plan (1) Ischemic colitis: ?Status:?Acute ?Plan: Case discussed with Dr Rodriguez Classic presentation for ischemic colitis Mineral oil w/ OJ bid for constipation hyoscyamine prn for LLQ pain/cramping, treat spasms in order to try to prevent ischemia CTA abd pel EGD and colonoscopy w/ f/u 2 wks later (2) GERD (gastroesophageal reflux disease): ?Status:?Acute ?Plan: continue ppi, egd as above to eval for bhatia's (3) Chronic constipation: ?Status:?Chronic ?Plan: as above ? ? ? Orders: Orders Comprehensive Metabolic Profil Today K55.9 - Vascular disorder of intestine, unspecified ? CPK Total, Creatine Kinase Today K55.9 - Vascular disorder of intestine, unspecified ? CRP Today K55.9 - Vascular disorder of intestine, unspecified ? LDH Today K55.9 - Vascular disorder of intestine, unspecified ? CBC W/Diff, Automated Today K55.9 - Vascular disorder of intestine, unspecified ? Erythrocyte Sed Rate Today K55.9 - Vascular disorder of intestine, unspecified ? CT ANGIO ABD&PEL W/O&W/DYE Today K55.9 - Vascular disorder of intestine, unspecified ? Medications: New hyoscyamine sulfate 0.125 mg? PO BID-QID PRN 30 tabs 0RF abdominal pain ? ? Discontinued ciprofloxacin HCl (Cipro) ?? Discontinued Reason:? Pt no longer taking 500 mg? PO BID 7 days 14 tabs 0RF ? ? metronidazole ?? Discontinued Reason:? Pt no longer taking 500 mg? PO Q8H 7 days 21 tabs 0RF ? ? oxycodone ?? Discontinued Reason:? Pt no longer taking 5 mg? PO TID 3 days PRN 10 tabs 0RF pain K52.9 - Noninfective gastroenteritis and colitis, unspecified ? Coding Level of Care Code Off vis,new,level 4 Diagnoses Ischemic colitis? K55.9 GERD (gastroesophageal reflux disease)? K21.9 Chronic constipation? K59.09 I have examined the patient and the H&P has been reviewed. There are no clinical changes since date of exam.
--- NOTE | 2022-04-21 07:11 | OP.CCLET_ITS ---
04/21/2022 Zacarias Cole Re : Upper GI endoscopy procedure for Gisela Kerrkelly Cole This procedure was performed on Thursday, April 21, 2022. My impressions and recommendations are as follows: Impressions : - Z-line irregular, 37 cm from the incisors. Biopsied. - Medium-sized hiatal hernia. - Normal second portion of the duodenum. Biopsied. Recommendations : - Discharge patient to home. - Resume previous diet. - Continue present medications. - Await pathology results. My findings are described in the full procedure note, which is enclosed. If I can be of further assistance, please feel free to contact me at . Sincerely, Jose Rodriguez, 04/21/2022 7:10:30 AM This report has been signed electronically.
--- NOTE | 2022-04-21 07:11 | OP.EGD_ITS ---
Patient Name: Gisela Alas Procedure Date: 04/21/2022 6:17 AM Date of : 1970 Age: 51 Procedure: Upper GI endoscopy Indications: Suspected esophageal reflux Providers: Jose Rodriguez DO Medicines: Monitored Anesthesia Care Patient Profile: This is a 51 year old female. Refer to note in patient chart for documentation of history and physical. Patient has symptoms of acute abdominal cramping, acute epigastric abdominal pain and chronic heartburn. Complications: No immediate complications. Procedure: Pre-Anesthesia Assessment: - Prior to the procedure, a History and Physical was performed, and patient medications and allergies were reviewed. The risks and benefits of the procedure and the sedation options and risks were discussed with the patient. All questions were answered and informed consent was obtained. Patient identification and proposed procedure were verified by the physician in the pre-procedure area. Mental Status Examination: alert and oriented. Airway Examination: normal oropharyngeal airway and neck mobility. Respiratory Examination: clear to auscultation. CV Examination: normal. Prophylactic Antibiotics: The patient requires prophylactic antibiotics due to a prior history of acute GI bleeding and for the planned performance of dilation. Prior Anticoagulants: The patient has taken no previous anticoagulant or antiplatelet agents. ASA Grade Assessment: II - A patient with mild systemic disease. After reviewing the risks and benefits, the patient was deemed in satisfactory condition to undergo the procedure. The anesthesia plan was to use monitored anesthesia care (MAC). Immediately prior to administration of medications, the patient was re-assessed for adequacy to receive sedatives. The heart rate, respiratory rate, oxygen saturations, blood pressure, adequacy of pulmonary ventilation, and response to care were monitored throughout the procedure. The physical status of the patient was re-assessed after the procedure. After obtaining informed consent, the endoscope was passed under direct vision. Throughout the procedure, the patient's blood pressure, pulse, and oxygen saturations were monitored continuously. The Colonoscope was introduced through the mouth, and advanced to the second part of duodenum. The upper GI endoscopy was accomplished without difficulty. The patient tolerated the procedure well. Scope In: 6:44:58 AM Scope Out: 6:48:47 AM Total Procedure Duration Time 0 hours 3 minutes 49 seconds Findings: The Z-line was irregular and was found 37 cm from the incisors, along with a distal esophageal ring. Biopsies were taken with a cold forceps for histology. Verification of patient identification for the specimen was done. Estimated blood loss was minimal. A medium-sized hiatal hernia was present. The second portion of the duodenum was normal. Biopsies were taken with a cold forceps for histology. Verification of patient identification for the specimen was done. Estimated blood loss was minimal. Impression: - Z-line irregular, 37 cm from the incisors. Biopsied. - Medium-sized hiatal hernia. - Normal second portion of the duodenum. Biopsied. Recommendation: - Discharge patient to home. - Resume previous diet. - Continue present medications. - Await pathology results. Procedure Code(s): --- Professional --- 40273, Esophagogastroduodenoscopy, flexible, transoral; with biopsy, single or multiple CPT copyright 2017 [employer]. All rights reserved. The codes documented in this report are preliminary and upon senior materials scientist review may be revised to meet current compliance requirements. Jose Rodriguez DO 04/21/2022 7:10:30 AM This report has been signed electronically. Number of Addenda: 0 Note Initiated On: 04/21/2022 6:17 AM
--- NOTE | 2022-04-21 07:15 | OP.COLON_ITS ---
Patient Name: Gisela Alas Procedure Date: 04/21/2022 6:48 AM Date of : 1970 Age: 51 Procedure: Colonoscopy Indications: Screening for colorectal malignant neoplasm Providers: Jose Rodriguez DO Medicines: Monitored Anesthesia Care Patient Profile: This is a 51 year old female. Refer to note in patient chart for documentation of history and physical. Patient has symptoms of acute abdominal cramping, acute epigastric abdominal pain and chronic heartburn. Last Colonoscopy: date unknown. Unable to locate last colonoscopy report. Complications: No immediate complications. Procedure: Pre-Anesthesia Assessment: - Prior to the procedure, a History and Physical was performed, and patient medications and allergies were reviewed. The risks and benefits of the procedure and the sedation options and risks were discussed with the patient. All questions were answered and informed consent was obtained. Patient identification and proposed procedure were verified by the physician in the pre-procedure area. Mental Status Examination: alert and oriented. Airway Examination: normal oropharyngeal airway and neck mobility. Respiratory Examination: clear to auscultation. CV Examination: normal. Prophylactic Antibiotics: The patient requires prophylactic antibiotics due to a prior history of acute GI bleeding and for the planned performance of dilation. Prior Anticoagulants: The patient has taken no previous anticoagulant or antiplatelet agents. ASA Grade Assessment: II - A patient with mild systemic disease. After reviewing the risks and benefits, the patient was deemed in satisfactory condition to undergo the procedure. The anesthesia plan was to use monitored anesthesia care (MAC). Immediately prior to administration of medications, the patient was re-assessed for adequacy to receive sedatives. The heart rate, respiratory rate, oxygen saturations, blood pressure, adequacy of pulmonary ventilation, and response to care were monitored throughout the procedure. The physical status of the patient was re-assessed after the procedure. After I obtained informed consent, the scope was passed under direct vision. Throughout the procedure, the patient's blood pressure, pulse, and oxygen saturations were monitored continuously. The Colonoscope was introduced through the anus and advanced to the terminal ileum. The colonoscopy was performed without difficulty. The patient tolerated the procedure well. The quality of the bowel preparation was good. Scope In: 6:50:30 AM Scope Withdrawal Time 0 hours 9 minutes 18 seconds Scope Out: 7:04:27 AM Total Procedure Duration Time 0 hours 13 minutes 57 seconds Findings: A 5 mm polyp was found in the hepatic flexure ascending colon. The polyp was sessile. The polyp was removed with a cold snare. Resection and retrieval were complete. Verification of patient identification for the specimen was done. Estimated blood loss was minimal. The terminal ileum appeared normal. Biopsies were taken with a cold forceps for histology. Verification of patient identification for the specimen was done. Estimated blood loss was minimal. The exam was otherwise normal throughout the examined colon. Impression: - One 5 mm polyp at the hepatic flexure in the ascending colon, removed with a cold snare. Resected and retrieved. - The examined portion of the ileum was normal. Biopsied. Recommendation: - Discharge patient to home. - Resume previous diet. - Continue present medications. - Await pathology results. - Repeat colonoscopy in 5 years for surveillance. - Return to GI office. Procedure Code(s): --- Professional --- 21634, Colonoscopy, flexible; with removal of tumor(s), polyp(s), or other lesion(s) by snare technique 76639, 59, Colonoscopy, flexible; with biopsy, single or multiple CPT copyright 2017 [employer]. All rights reserved. The codes documented in this report are preliminary and upon natural resource specialist review may be revised to meet current compliance requirements. Jose Rodriguez DO 04/21/2022 7:15:01 AM This report has been signed electronically. Number of Addenda: 0 Note Initiated On: 04/21/2022 6:48 AM
--- NOTE | 2022-04-21 07:15 | OP.CCLET_ITS ---
04/21/2022 Zac[facility] Cole Re : Colonoscopy procedure for Gisela Kerrkelly Cole This procedure was performed on Thursday, April 21, 2022. My impressions and recommendations are as follows: Impressions : - One 5 mm polyp at the hepatic flexure in the ascending colon, removed with a cold snare. Resected and retrieved. - The examined portion of the ileum was normal. Biopsied. Recommendations : - Discharge patient to home. - Resume previous diet. - Continue present medications. - Await pathology results. - Repeat colonoscopy in 5 years for surveillance. - Return to GI office. My findings are described in the full procedure note, which is enclosed. If I can be of further assistance, please feel free to contact me at . Sincerely, Jose Rodriguez, 04/21/2022 7:15:01 AM This report has been signed electronically.
== END 2022-04-21 08:18 | disposition home or self-care (01) ==
LOC: EN 05:28 → AC 05:28
PROVIDERS: PCP Family Medicine; Referring Provider Family Medicine; Visit Provider Internal Medicine Gastroenterology
PROC: 0DJD8ZZ Inspection of Lower Intestinal Tract, Via Natural or Artificial Opening Endoscopic (ICD-10-PCS; CPT 45378; principal; 2022-04-21 06:25)
DX: Z12.11 Encounter for screening for malignant neoplasm of colon (principal); M06.9 Rheumatoid arthritis, unspecified; K55.039 Acute (reversible) ischemia of large intestine, extent unspecified; K44.9 Diaphragmatic hernia without obstruction or gangrene; D12.2 Benign neoplasm of ascending colon; D12.3 Benign neoplasm of transverse colon; K21.9 Gastro-esophageal reflux disease without esophagitis; K59.09 Other constipation; E78.00 Pure hypercholesterolemia, unspecified; Z90.49 Acquired absence of other specified parts of digestive tract; Z90.710 Acquired absence of both cervix and uterus; Z79.899 Other long term (current) drug therapy; Z87.891 Personal history of nicotine dependence
CPT/HCPCS: 45385; 45380; 43239; 88305; 88313; J7120; J2405

== ENCOUNTER → 2022-06-02 | Outpatient (CLI) | payer OTHER, SELFPAY ==
--- NOTE | 2022-06-02 07:17 | CT_ITS ---
STUDY: CTA ABDOMEN AND PELVIS WITH CONTRAST REASON FOR EXAM: Female, 51 years old. Ischemic colitis, lower GI bleed, LLQ pain RADIATION DOSAGE (If Supplied By Facility): CTDIvol = ( 27.97 ) mGy, DLP = ( 1027.98 ) mGycm TECHNIQUE: Transaxial images were obtained from the dome of the diaphragm to the symphysis pubis without oral contrast. IV 100mL Isovue-370 was administered. Sagittal and coronal images were reconstructed. Individualized dose optimization techniques were used for this CT. COMPARISON: Comparison is made with prior study dated 12/26/2021. FINDINGS: The visualized lung bases are unremarkable. The visualized portions of the heart are within normal limits. There is decreased attenuation of the liver consistent with steatosis. Normal gallbladder and extrahepatic biliary system. Normal spleen. Normal pancreas. Normal bilateral adrenal glands. Normal right kidney. Normal left kidney. Normal visualized stomach. Normal small intestine. Normal colon. There are surgical clips in the region of the appendix consistent with a prior appendectomy. Normal abdominal aorta. Normal inferior vena cava. Normal retroperitoneum. Normal urinary bladder. Normal abdominal wall. Normal osseous structures. CT/CT ANGIO ABD&PEL W/O&W/DYE IMPRESSION: Normal enhanced CT of the abdomen and pelvis. Electronically Signed: Chong Alvarez MD at 9:21 EST ,
== END | disposition home or self-care (01) ==
LOC: CT 07:17
PROVIDERS: PCP Family Medicine; Visit Provider Nurse Practitioner Adult Health
DX: K55.9 Vascular disorder of intestine, unspecified (principal); K92.2 Gastrointestinal hemorrhage, unspecified; R10.32 Left lower quadrant pain
CPT/HCPCS: 74174; Q9967; A4216

== ENCOUNTER 2023-06-07 17:29 | Emergency (ER) | payer OTHER, SELFPAY ==
[2023-06-07 17:29] VITALS: BP 136/98; PULSE 92; RESP 17; TEMP 36.2; O2SAT 98; BMI 31.7
== END 2023-06-07 17:41 | disposition left against medical advice (07) ==
LOC: ED 17:45
DX: Z00.00 Encounter for general adult medical examination without abnormal findings (principal)

== ENCOUNTER 2024-04-18 09:09 | Inpatient (IN) | payer OTHER, SELFPAY ==
[2024-04-18 09:10] VITALS: BP 130/88; PULSE 105; RESP 20; TEMP 36.6; O2SAT 98; BMI 31.8
--- NOTE | 2024-04-18 09:25 | CT_ITS ---
STUDY: CT ABDOMEN AND PELVIS WITH CONTRAST REASON FOR EXAM: Female, 53 years old. LLQ abdominal pain with rectal bleeding. RADIATION DOSAGE (If Supplied By Facility): CTDIvol = ( 13.21 ) mGy, DLP = ( 963.94 ) mGycm TECHNIQUE: Transaxial images were obtained from the dome of the diaphragm to the symphysis pubis without oral contrast. IV 100mL Isovue-300 was administered. Sagittal and coronal images were reconstructed. Individualized dose optimization techniques were used for this CT. COMPARISON: Comparison is made with prior study dated December 26, 2021. FINDINGS: The visualized lung bases are unremarkable. The visualized portions of the heart are within normal limits. There is decreased attenuation of the liver consistent with steatosis. Normal gallbladder and extrahepatic biliary system. Normal spleen. Normal pancreas. Normal bilateral adrenal glands. Normal right kidney. Normal left kidney. There is a small hiatal hernia. Normal small intestine. Abnormal appearance of the haustral pattern involving the transverse colon as well as the splenic flexure, descending colon and the rectosigmoid colon suggestive of colitis. There are surgical clips in the region of the appendix consistent with a prior appendectomy. Normal abdominal aorta. Normal inferior vena cava. Normal retroperitoneum. Normal urinary bladder. There is absence of the uterus consistent with a prior hysterectomy. Normal abdominal wall. Normal osseous structures. CT/Abdomen/Pelvis W IV Cont ONLY IMPRESSION: Findings in keeping colitis involving the transverse colon, descending colon as well as the rectosigmoid colon. Electronically Signed: Chong Alvarez MD at 10:51 EDT ,
--- NOTE | 2024-04-18 09:27 | ED.VIS.GI ---
HPI HPI - GI History of Present Illness Chief Complaint: GI Bleed Detail of Chief Complaint: Abdominal pain with rectal bleeding Informant: patient Narrative Narrative: Patient presents to the emergency department with complaint of rectal bleeding and abdominal pain that started around 3 AM. Patient states she started vomiting initially. She then developed left lower quadrant abdominal pain and this morning passed bright red blood per rectum with mucus and loose stool. Patient tells me she had a URI a week ago and took 5 days of Cipro. No history of C. difficile. She has history of ischemic colitis. Last episode like this was in May of last year. She believes it is her ischemic colitis that is the issue. She has been told she has had history of diverticulitis. She sees a acute care physical therapist locally Dr. Rodriguez. She denies fever or chills or sweats. [facility] Medical History Acute hemorrhagic colitis Arthritis Endometriosis Former smoker Gastric reflux GERD (gastroesophageal reflux disease) Heartburn High cholesterol History of echocardiogram History of IBS History of stress test History of ulceration Reflux esophagitis Rheumatoid arthritis Wears glasses Wears hearing aid Home Medications ?Medication ?Instructions ?Recorded ?Last Taken ?Type hyoscyamine sulfate 0.125 mg 0.125 mg PO BID-QID PRN abdominal 10/21/22 04/17/24 Rx disintegrating tablet pain #120 tabs omeprazole 40 mg capsule,delayed 40 mg PO DAILY #90 caps 10/21/22 04/17/24 Rx release semaglutide (weight loss) 1.7 1.7 mg subcut Q7D 04/18/24 04/16/24 History mg/0.75 mL subcutaneous pen injector Allergy/AdvReac Type Severity Reaction Status Date / Time No Known Allergies Allergy Verified 04/18/24 09:10 Family History Father Heart disease Hypertension Hyperlipidemia Thyroid disorder Skin cancer Grandmother Breast cancer Mother Brain cancer Other Brain tumor Surgical History H/O laparoscopy History of appendectomy History of cardiac catheterization History of hysterectomy Hx of foot surgery Hx of tonsillectomy Social History Smoking Status: Former smoker ROS ROS ED Review of Systems ROS Unobtainable: other Constitutional Constitutional ED: Reports lethargy; Denies chills, fever(s), sweats or weight loss Eyes Eyes: Denies blurry vision, change in vision or diplopia ENT ENT ED: Denies rhinorrhea or sore throat Cardiovascular Cardiovascular: Denies chest pain, orthopnea or racing heartbeat Respiratory/Chest Respiratory/Chest: Denies cough, dyspnea, dyspnea on exertion, orthopnea or sputum Gastrointestinal Gastrointestinal: Reports abdominal pain, nausea, vomiting and other Details: Bright red blood per rectum ; Denies diarrhea Genitourinary Genitourinary ED: Denies dysuria, hematuria or urinary frequency Musculoskeletal Musculoskeletal: Denies arthralgias, back pain, myalgias or neck pain Integumentary Denies abscess, Abrasions or rash Neurologic Neurologic: Denies headache(s) or weakness Psychiatric Psychiatric: Denies anxiety, depression or suicidal thoughts Endocrine Endocrinology: Denies polydipsia, polyphagia or polyuria Hematologic/Lymphatic Hematologic/Lymphatic: Denies easy bleeding, easy bruising or lymphadenopathy Allergic/Immunologic Allergic/Immunologic ED: Denies mouth swelling, tongue swelling or urticaria EXAM Physical Exam Const Vital Signs: 04/18/24 09:10 Temperature 98 F Temperature Source Oral Pulse Rate 105 H Respiratory Rate 20 H Blood Pressure 130/88 H Blood Pressure Mean 102 Pulse Ox 98 Positive well nourished and well developed General Appearance ED: well developed and NAD HEENT Reports TM's clear and moist mucous membranes normocephalic and atraumatic; Negative for trauma or tenderness Tympanic Membrane ED: Yes TM's clear Eyes PERRL and EOMs intact bilaterally General Eye ED: Negative for pale conjunctiva or scleral icterus Neck no lymphadenopathy, supple and no JVD General: Negative for tenderness Chest Wall inspection of chest normal and palpation of chest normal Chest: Negative for tenderness Resp normal respiratory effort and clear to auscultation bilaterally Effort and Inspection: Negative for respiratory distress or pain with movement Auscultation: Negative for rhonchi, wheezes or diminished lung sounds Cardio regular rate, regular rhythm, S1 normal heart sound, S2 normal heart sound and no murmurs Peripheral Pulses: pulses 2+ throughout GI normal to inspection, nondistended, normoactive bowel sounds, soft to palpation, non-tender, non-distended and no masses Back/Spine no CVA tenderness and no thoracic nor lumbar tenderness Extremity normal to inspection General Extremety ED: Negative for edema General Extremity: Negative for edema Neuro oriented x3, CN's II-XII intact bilaterally, no sensory deficits noted and gait normal Sensorium / Orientation: awake, alert, oriented to person, oriented to place and oriented to time Motor Exam: strength 5/5 throughout and strength abnormal Psych mental status grossly normal Skin no rashes or lesions noted and no wounds MDM MDM MDM Narrative Medical decision making narrative: Patient presents the emergency department with abdominal pain and rectal bleeding with history of ischemic colitis. Patient already established. She was ordered a liter Mustain fluid bolus and was medicated with morphine and Zofran. CBC with differential obtained showed a white count of 11.5 with hemoglobin of 15.7 and platelet count of 390. Chemistries unremarkable. Lactate was slightly elevated 2.1. CT scan of the abdomen pelvis with IV contrast showed colitis of the transverse colon and descending colon. Patient was given a second dose of morphine. Patient was given Zosyn 4.5 g IV. Case was discussed with hospitalist will evaluate patient for admission. I also discussed case with acute care physical therapist Dr. Rodriguez whom patient sees for similar issues. Lab Data Attestation: I reviewed the patient's lab results. Labs: Laboratory Results - last 24 hr 04/18/24 09:45 WBC 11.5 H RBC 5.44 H Hgb 15.7 H Hct 46.8 MCV 86.0 MCH 28.9 MCHC 33.5 RDW Std Deviation 38.3 RDW Coeff of Ramos 12.4 Plt Count 390 MPV 8.9 Immature Gran % (Auto) 0.400 Neut % (Auto) 86.6 H Lymph % (Auto) 8.9 L Custer % (Auto) 3.5 Eos % (Auto) 0.1 Baso % (Auto) 0.5 Absolute Neuts (auto) 10.0 H Absolute Lymphs (auto) 1.03 Nucleated RBC % 0 Sodium 143 Potassium 4.2 Chloride 109 H Carbon Dioxide 25.0 Anion Gap 9 BUN 15 Creatinine 0.98 Estim Creat Clear Calc 67.12 Est GFR (MDRD) Af Amer 77 Est GFR (MDRD) Non-Af 63 BUN/Creatinine Ratio 15.4 Glucose 110 H Lactic Acid 2.1 H* Calcium 9.6 Blood Type O POSITIVE Antibody Screen NEGATIVE Radiography Diagnostic Testing: Clinical Impression(s) from Imaging Studies Abdomen/Pelvis CT 04/18/24 09:25 IMPRESSION: Findings in keeping colitis involving the transverse colon, descending colon as well as the rectosigmoid colon. Electronically Signed: Chong Alvarez MD at 10:51 EDT , Discharge Plan Triage Chief Complaint: GI Bleed ED Provider: Tyree Marie Dx/Rx/DC Orders Clinical Impression: Ischemic colitis, Abdominal pain, Acute lower GI bleeding Prescriptions: No Action hyoscyamine sulfate 0.125 mg tablet,disintegrating 0.125 mg PO BID-QID PRN (Reason: abdominal pain) Qty: 120 3RF omeprazole 40 mg capsule,delayed release(DR/EC) 40 mg PO DAILY Qty: 90 3RF semaglutide (weight loss) 1.7 mg/0.75 mL pen injector 1.7 mg subcut Q7D Primary Care Provider: Juan Carolina Referrals: Care Physician,No Primary [Non-Staff] - Print Language: Estonian Disposition Disposition: Acute Care Hospital [facility]
[2024-04-18 09:51] LABS: Absolute Lymphocyte Count 1.03 X10^3/uL (0.83-4.51); Basophil# 0.06 X10^3/uL; Basophil% 0.5 % (0-1); Eosinophil# 0.01 X10^3/uL; Eosinophils% 0.1 % (0-5); Hematocrit 46.8 % (37-47); Hemoglobin 15.7 g/dL (12.0-15.0); Lymphocyte # 1.03 X10^3/ul (0.83-4.51); Lymphocyte % 8.9 % (19-41); Mean Corp Hgb Conc 33.5 g/dL (32-36); Mean Corpuscular Hgb 28.9 pg (27.0-32.0); Mean Platelet Vol. 8.9 fl (6.2-12.0); Monocyte% 3.5 % (0-10); NRBC Flagged by Analyzer 0 % (0-5); Neutrophil # 9.97 X10^3/uL (2.7-7.7); Neutrophil % 86.6 % (47-70); Platelet Count 390 K/mm3 (150-450); RBC Distribution Width CV 12.4 % (11.6-14.6); RBC Distribution Width SD 38.3 fl (35.1-43.9); Red Blood Count 5.44 M/mm3 (4.2-5.4); White Blood Count 11.5 K/mm3 (4.4-11.0)
[2024-04-18] MEDS: Morphine 4 MG/ML Syringe IV ×2 (09:53→11:14)
[2024-04-18] MEDS: 0.9% Normal Saline (1000mL) 1,000 ML 999 ML IV (09:53)
[2024-04-18] MEDS: Ondansetron 4 MG/2 ML Vial IV ×2 (09:53→16:48)
[2024-04-18 10:03] LABS: Anion Gap 9 (5-15); BUN 15 mg/dL (7-18); BUN/Creat Ratio 15.4 RATIO (10-20); Calcium,Total 9.6 mg/dL (8.5-10.1); Chloride 109 mmol/L (98-107); Creatinine, Serum 0.98 mg/dL (0.55-1.02); EST Glomerular Filtration Rate 63 mL/min (>60); Est Glom Filt Rate - Afr Amer 77 mL/min (>60); Estimated Creatinine Clearance 67.12 ml/min; Glucose 110 mg/dL (74-106); Potassium 4.2 mmol/L (3.5-5.1); Sodium Level 143 mmol/L (136-145)
[2024-04-18 10:25] LABS: Lactic Acid 2.1 mmol/L (0.4-1.9)
[2024-04-18 11:10] VITALS: BP 129/77; PULSE 82; RESP 15; TEMP 36.1; O2SAT 97
--- NOTE | 2024-04-18 11:10 | HP.PCM.HOS_ITS ---
HPI - General General Date of Admission: 04/18/24 Date of Service: 04/18/24 Chief Complaint: abdominal pain HPI Narrative FRANK VENTURA, is a 53 F with a PMH as outlined who presents via the ED on 04/18/2024 with a complaint of abdominal pain and rectal bleeding. Her symptoms started in the early hours of hte day of admission. It started with the abdominal pain, which was mainly in the left lower quadrant, and subsequently had bright red bleeding per rectum. She admits to a history of ischemic colitis. Vitals in the ED were BP of 129/77, OR of 82, RR of 15 and temp of 96.9F. She was saturating at 97% on room air. CBC showed hb of 15.7, wbc was 11.5 and platelets of 390. Chemistry showed sodium of 143, potassium of 4.2, bicarb of 25 and anion gap of 9. Cr was 0.98. Lactic acid was 2.1. CT of the abdomen and pelvis showed colitis of the transverse colon as well as splenic flexure, descending colon and rectosigmoid colon. She has been admitted to be managed for acute colitis. She was started on IV Zosyn in the ED. [facility] Medical History Acute hemorrhagic colitis Arthritis Endometriosis Former smoker Gastric reflux GERD (gastroesophageal reflux disease) Heartburn High cholesterol History of echocardiogram History of IBS History of stress test History of ulceration Reflux esophagitis Rheumatoid arthritis Wears glasses Wears hearing aid Home Medications ?Medication ?Instructions ?Recorded ?Last Taken ?Type hyoscyamine sulfate 0.125 mg 0.125 mg PO BID-QID PRN abdominal 10/21/22 04/17/24 Rx disintegrating tablet pain #120 tabs omeprazole 40 mg capsule,delayed 40 mg PO DAILY #90 caps 10/21/22 04/17/24 Rx release semaglutide (weight loss) 1.7 1.7 mg subcut Q7D 04/18/24 04/16/24 History mg/0.75 mL subcutaneous pen injector Allergy/AdvReac Type Severity Reaction Status Date / Time No Known Allergies Allergy Verified 04/18/24 09:10 Family History Father Heart disease Hypertension Hyperlipidemia Thyroid disorder Skin cancer Grandmother Breast cancer Mother Brain cancer Other Brain tumor Surgical History H/O laparoscopy History of appendectomy History of cardiac catheterization History of hysterectomy Hx of foot surgery Hx of tonsillectomy Social History Smoking Status: Former smoker ROS Review of Systems ROS Unobtainable: Denies due to encephalopathy Constitutional Constitutional: Reports fatigue, malaise and weakness; Denies anorexia, chills or fever(s) Eyes Eyes: Denies change in vision ENT HEENT: Denies dysphagia, epistaxis, headache(s) or sore throat Cardiovascular Cardiovascular: Denies chest pain, dyspnea on exertion, edema, lightheadedness, orthopnea, palpitations, paroxysmal nocturnal dyspnea, rapid heart rate or syncope Respiratory/Chest Respiratory/Chest: Denies cough, productive cough, shortness of breath at rest or shortness of breath with exertion Gastrointestinal Gastrointestinal: Reports abdominal pain and diarrhea; Denies coffee ground emesis, constipation, dyspepsia or hematemesis Genitourinary Genitourinary: Denies dysuria or urinary frequency Musculoskeletal Musculoskeletal: Denies joint stiffness or joint swelling Neurologic Neurologic: Denies abnormal gait, confusion, dizziness, focal weakness or headache(s) Psychiatric Psychiatric: Denies anxiety or depression Endocrine Endocrinology: Denies change in body appearance Hematologic/Lymphatic Hematologic/Lymphatic: Denies anemia Vital Signs Vital Signs Vital Signs: 04/18/24 09:10 Temperature 98 F Temperature Source Oral Pulse Rate 105 H Respiratory Rate 20 H Blood Pressure 130/88 H Blood Pressure Mean 102 Pulse Ox 98 Weight Weight: 179 lb 11.2 oz Body Mass Index (BMI) 31.8 Physical Exam Const alert, oriented x3, no apparent distress and average body habitus General Appearance: cooperative HEENT normocephalic, head/scalp atraumatic, hearing grossly normal bilaterally and moist oral mucous membranes Mouth: oral and palatal mucosa normal Eyes PERRL, EOMs intact bilaterally and conjunctivae normal Neck no lymphadenopathy and supple Resp normal respiratory effort, no retractions and clear to auscultation bilaterally Cardio regular rate, regular rhythm, S1 normal heart sound, S2 normal heart sound and no murmurs GI normal to inspection, nondistended, normoactive bowel sounds GI Narrative: moderate tenderness in the left lower quadrant. NO guarding or rebound tenderness. Extremity normal to inspection, full ROM and no clubbing, cyanosis or edema Neuro oriented x3, CN's II-XII intact bilaterally, moves all extremities and no focal motor deficits Sensorium / Orientation: awake and alert Motor Exam: strength 5/5 throughout Psych affect normal Results Lab / Micro Data 04/18/24 09:45 04/18/24 09:45 Labs: Laboratory Results - last 24 hr 04/18/24 09:45: WBC 11.5 H, RBC 5.44 H, Hgb 15.7 H, Hct 46.8, MCV 86.0, MCH 28.9, MCHC 33.5, RDW Std Deviation 38.3, RDW Coeff of Ramos 12.4, Plt Count 390, MPV 8.9, Immature Gran % (Auto) 0.400, Neut % (Auto) 86.6 H, Lymph % (Auto) 8.9 L, Barber % (Auto) 3.5, Eos % (Auto) 0.1, Baso % (Auto) 0.5, Absolute Neuts (auto) 10.0 H, Absolute Lymphs (auto) 1.03, Nucleated RBC % 0, Sodium 143, Potassium 4.2, Chloride 109 H, Carbon Dioxide 25.0, Anion Gap 9, BUN 15, Creatinine 0.98, Estim Creat Clear Calc 67.12, Est GFR (MDRD) Af Amer 77, Est GFR (MDRD) Non-Af 63, BUN/Creatinine Ratio 15.4, Glucose 110 H, Lactic Acid 2.1 H*, Calcium 9.6, Blood Type O POSITIVE, Antibody Screen NEGATIVE Imaging Radiology Impression Abdomen/Pelvis CT 04/18/24 09:25 IMPRESSION: Findings in keeping colitis involving the transverse colon, descending colon as well as the rectosigmoid colon. Electronically Signed: Chong Alvarez MD at 10:51 EDT , Assessment & Plan Assessment/Plan (1) Acute lower GI bleeding: (2) Abdominal pain: PLAN: Plan #Acute colitis * Admitted with a complaint of abdominal pain. She also had rectal bleeding. Imaging done showed colitis of the transverse, descending and rectosigmoid colon * States she does have a history of ischemic colitis. * [facility] Keep NPO. Hydrate with IV fluid normal saline 150 cc/h * Lactic acid was also elevated at 2.1. WBCs 11 point. * Started on IV Zosyn. Will continue. * Keep n.p.o. for now to allow for bowel rest. Consult gastroenterology * IV pantoprazole 40 mg twice daily * IV morphine as needed for pain as she is NPO #DVT prophylaxis: SCDs CODE STATUS: Full code * Patient counseled extensively about different types of CODE STATUS including full code, DNR CCA and DNR CCA. * Patient elects to be full code. * Total [id number] time 17 minutes. Charges/Coding Visit Charges Inpatient E&M: 23593 Init Hosp L3 Procedures Hospitalists Procedures: 24188 Advncd Care Plan 30 Min
[2024-04-18] MEDS: Piperacil/Tazobactam 4.5 GM in 0.9% Normal Saline (100mL MB+) 100 ML IV (11:49)
[2024-04-18 11:50] VITALS: BP 135/64; PULSE 72; RESP 16; TEMP 36.7; O2SAT 100
[2024-04-18 12:03] VITALS: BMI 31.8
[2024-04-18 12:22] VITALS: BP 115/79; PULSE 88; RESP 16; TEMP 36.8; O2SAT 98
[2024-04-18] MEDS: 0.9% Normal Saline (1000mL) 1,000 ML 150 ML IV ×2 (13:28→20:18)
[2024-04-18 13:47] LABS: Reflex Lactate? Y
[2024-04-18 15:04] LABS: Lactic Acid 0.9 mmol/L (0.4-1.9)
[2024-04-18] MEDS: Morphine 2 MG/ML Syringe 1 MG IV ×2 (15:25→18:09)
[2024-04-18 16:11] VITALS: BP 112/65; PULSE 84; RESP 16; TEMP 36.8; O2SAT 96
[2024-04-18] MEDS: Bisacodyl 5 MG Tablet 20 MG PO (18:09)
[2024-04-18] MEDS: Polyethylene Glycol 3350 BOWEL PREP PO (19:17)
--- NOTE | 2024-04-18 19:38 | EX.PCM.CON.G ---
HPI Consult Data Date of Consult: 04/18/24 HPI Narrative Reason for Consultation: Lower GI bleeding HPI Narrative: FRANK VENTURA, is a 53 F with a significant history of chronic constipation who presents to the emergency department with abdominal pain.? Her abdominal pain is located at the left lumbar region? and it radiates to her entire abdomen.? She described the pain as sharp.? The pain is episodic.? The pain worsens with movements.? Of note as patient was coming to the hospital the pain worsened when she hit the bumps. Of note patient started having hard stools and then it was followed with loose stools.? Her stools were mixed with blood.? On presentation patient showed pictures of bloody stool. Patient's pain improved with morphine received at emergency department.? She reports chills at home.? Associated with her symptoms is nausea and vomiting.? She described the pain as excruciating.? Associated with her? symptoms is heartburn.. She got a CT scan abdomen pelvis and it showed thickening in the colon. As per the patient she has had at least 5 episodes of ischemic colitis. She is not currently on any blood thinners. [facility] Medical History (Reviewed 10/21/22 @ 14:20 by Shahana Rincon PRICING/SIGNAGE TEAM MEMBER, PRICING/SIGNAGE TEAM MEMBER-C) Acute hemorrhagic colitis Arthritis Endometriosis Former smoker Gastric reflux GERD (gastroesophageal reflux disease) Heartburn High cholesterol History of echocardiogram History of IBS History of stress test History of ulceration Reflux esophagitis Rheumatoid arthritis Wears glasses Wears hearing aid Home Medications ?Medication ?Instructions ?Recorded ?Last Taken ?Type hyoscyamine sulfate 0.125 mg 0.125 mg PO BID-QID PRN abdominal 10/21/22 04/17/24 Rx disintegrating tablet pain #120 tabs omeprazole 40 mg capsule,delayed 40 mg PO DAILY #90 caps 10/21/22 04/17/24 Rx release semaglutide (weight loss) 1.7 1.7 mg subcut Q7D 04/18/24 04/16/24 History mg/0.75 mL subcutaneous pen injector Allergy/AdvReac Type Severity Reaction Status Date / Time No Known Allergies Allergy Verified 04/18/24 09:10 Family History (Reviewed 10/21/22 @ 14:20 by Shahana Rincon PRICING/SIGNAGE TEAM MEMBER, PRICING/SIGNAGE TEAM MEMBER-C) Father Heart disease Hypertension Hyperlipidemia Thyroid disorder Skin cancer Grandmother Breast cancer Mother Brain cancer Other Brain tumor Surgical History (Reviewed 10/21/22 @ 14:20 by Shahana Rincon PRICING/SIGNAGE TEAM MEMBER, PRICING/SIGNAGE TEAM MEMBER-C) H/O laparoscopy History of appendectomy History of cardiac catheterization History of hysterectomy Hx of foot surgery Hx of tonsillectomy Social History Smoking Status: Former smoker ROS Review of Systems ROS Unobtainable: Denies due to encephalopathy Constitutional Constitutional: Reports fatigue, malaise and weakness; Denies anorexia, chills or fever(s) Eyes Eyes: Denies change in vision ENT HEENT: Denies dysphagia, epistaxis, headache(s) or sore throat Cardiovascular Cardiovascular: Denies chest pain, dyspnea on exertion, edema, lightheadedness, orthopnea, palpitations, paroxysmal nocturnal dyspnea, rapid heart rate or syncope Respiratory/Chest Respiratory/Chest: Denies cough, productive cough, shortness of breath at rest or shortness of breath with exertion Gastrointestinal Gastrointestinal: Reports abdominal pain and diarrhea; Denies coffee ground emesis, constipation, dyspepsia or hematemesis Genitourinary Genitourinary: Denies dysuria or urinary frequency Musculoskeletal Musculoskeletal: Denies joint stiffness or joint swelling Neurologic Neurologic: Denies abnormal gait, confusion, dizziness, focal weakness or headache(s) Psychiatric Psychiatric: Denies anxiety or depression Endocrine Endocrinology: Denies change in body appearance Hematologic/Lymphatic Hematologic/Lymphatic: Denies anemia Physical Exam Const alert, oriented x3, no apparent distress and average body habitus General Appearance: cooperative HEENT normocephalic, head/scalp atraumatic, hearing grossly normal bilaterally and moist oral mucous membranes Mouth: oral and palatal mucosa normal Eyes PERRL, EOMs intact bilaterally and conjunctivae normal Neck no lymphadenopathy and supple Resp normal respiratory effort, no retractions and clear to auscultation bilaterally Cardio regular rate, regular rhythm, S1 normal heart sound, S2 normal heart sound and no murmurs GI normal to inspection, nondistended, normoactive bowel sounds GI Narrative: moderate tenderness in the left lower quadrant. NO guarding or rebound tenderness. Extremity normal to inspection, full ROM and no clubbing, cyanosis or edema Neuro oriented x3, CN's II-XII intact bilaterally, moves all extremities and no focal motor deficits Sensorium / Orientation: awake and alert Motor Exam: strength 5/5 throughout Psych affect normal Lab / Micro Data 04/18/24 09:45 04/18/24 09:45 Labs: Laboratory Results - last 24 hr 04/18/24 09:45: WBC 11.5 H, RBC 5.44 H, Hgb 15.7 H, Hct 46.8, MCV 86.0, MCH 28.9, MCHC 33.5, RDW Std Deviation 38.3, RDW Coeff of Ramos 12.4, Plt Count 390, MPV 8.9, Immature Gran % (Auto) 0.400, Neut % (Auto) 86.6 H, Lymph % (Auto) 8.9 L, [place] % (Auto) 3.5, Eos % (Auto) 0.1, Baso % (Auto) 0.5, Absolute Neuts (auto) 10.0 H, Absolute Lymphs (auto) 1.03, Nucleated RBC % 0, Sodium 143, Potassium 4.2, Chloride 109 H, Carbon Dioxide 25.0, Anion Gap 9, BUN 15, Creatinine 0.98, Estim Creat Clear Calc 67.12, Est GFR (MDRD) Af Amer 77, Est GFR (MDRD) Non-Af 63, BUN/Creatinine Ratio 15.4, Glucose 110 H, Lactic Acid 2.1 H*, Calcium 9.6, Blood Type O POSITIVE, Antibody Screen NEGATIVE 04/18/24 14:10: Lactic Acid 0.9 Imaging Radiology Impression Abdomen/Pelvis CT 04/18/24 09:25 IMPRESSION: Findings in keeping colitis involving the transverse colon, descending colon as well as the rectosigmoid colon. Electronically Signed: Chong Alvarez MD at 10:51 EDT , Assessment & Plan Assessment/Plan (1) Acute hemorrhagic colitis: PLAN: Plan 53-year-old on semaglutide who presents with appears to be recurrent ischemic colitis. She has a history of low blood pressure that developed after hysterectomy. Differential diagnosis does include adrenal insufficiency, hypercoagulable state, medication side effect. She had a abdomen and pelvis CT that displayed diffuse thickening throughout the colon. We went over the natural history of his acute recurrent ischemic colitis on the right side of colon versus left-sided colon. Recommendation : -Stool studies to make sure this is not infectious in etiology -Colonoscopy to get biopsy specimen for pathologic diagnosis -Hypercoagulable workup -Continue antibiotics -Workup for adrenal insufficiency Charges/Coding Visit Charges Inpatient E&M: 89808 Init Hosp L3
[2024-04-18 20:51] VITALS: BP 112/75; PULSE 86; RESP 17; TEMP 36.8; O2SAT 99
[2024-04-18] MEDS: proMETHazine 25 MG/ML Syringe 10 MG IM (21:01)
[2024-04-18 21:39] LABS: Erythrocyte Sedimentation Rate 18 mm/hr (0-30)
[2024-04-18 21:44] LABS: D-Dimer Quantitative (DVT/PE) 0.31 FEU/ug/m (0.27-0.49)
[2024-04-18 22:02] LABS: CPK Total, Creatine Kinase 49 U/L (26-192); CRP 3.64 mg/L (0.0-3.0); Rheumatoid Factor < 10.0 IU/mL (<15)
[2024-04-18] MEDS: Piperacil/Tazobactam 3.375 GM in 0.9% Normal Saline (50mL MB+) 50 ML IV (22:13)
[2024-04-19] VITALS (13 sets, daily range): BP systolic 91–133; BP diastolic 56–91; PULSE 73–89; RESP 16–18; TEMP 36.1–37.2; O2SAT 95–100
--- NOTE | 2024-04-19 | COLBX_PTH ---
PATIENT: FRANK VENTURA LOC: [facility] U#:[id number] AGE/SX: 53/F ROOM: IL317 RE04/18/[address]: Dr. Karissa Hernandez MD : 1970 BED: 1 DIS: 04/20/2024 SPEC #: [id number] RECD: 04/19/24 18:18 STATUS: VIKAS RENadeen #: [id number] BRAD: 04/19/24 00:[address]: Jose Rodriguez DEPT: SURGICAL PATHOLOGY RECD BY: Magan Kenney ENTERED: 04/20/24 09:29 SP TYPE: COLON BX OTHR DR: MD Dr. Juan Molina MD Tissues: A - Ileum, NOS B - Transverse colon C - Rectum, NOS Procedures: Surgery Specimen Level IV Comments: @ Ordering doctor for SUIV edited from to @ daniel SALCEDO at 04/20/24 1017 @ Submitting doctor edited from to @ daniel SALCEDO at 04/20/24 1017 HEADER OPERATION: Colonoscopy with biopsy PRE-OP DIAGNOSIS: Lower GI bleeding TISSUE SUBMITTED: A- Terminal ileum biopsy, B- Transverse colon biopsy, C- Rectum biopsy MICROSCOPIC DIAGNOSIS A. Terminal ileum, biopsy: Fragments of small intestinal mucosa, no pathologic diagnosis. B. Transverse colon, biopsy: Fragments of colonic mucosa with congestion, hemorrhage and focal changes suggestive of ischemic colitis. C. Rectum, biopsy: Fragments of colonic mucosa, no pathologic diagnosis. See comment. 04/21/2024 COMMENT Correlation with clinical, endoscopic findings and appropriate follow up are necessary. MICROSCOPIC DESCRIPTION Slides are reviewed. GROSS DESCRIPTION A. Received in fixative is one container labeled with the patient's name and designated Terminal ileum biopsy. The specimen consists of two irregular fragments of light jones soft tissue that in aggregate measure 0.8 x 0.3 x 0.1 cm. The specimen is totally submitted in one cassette. B. Received in fixative is one container labeled with the patient's name and designated Transverse colon biopsy. The specimen consists of multiple irregular fragments of light jones soft tissue that in aggregate measure 1.0 x 0.3 x 0.1 cm. The specimen is totally submitted in one cassette. C. Received in fixative is one container labeled with the patient's name and designated Rectum biopsy. The specimen consists of multiple irregular fragments of light jones soft tissue that in aggregate measure 0.8 x 0.3 x 0.1 cm. The specimen is totally submitted in one cassette. SJ 04/20/2024 TC:5 CPT:02476u1
[2024-04-19] MEDS: 0.9% Saline Lock 10 ML Syringe IV ×2 (01:43→06:05)
[2024-04-19] MEDS: Ondansetron 4 MG/2 ML Vial IV (01:43)
[2024-04-19] MEDS: Morphine 2 MG/ML Syringe 1 MG IV (01:44)
[2024-04-19] MEDS: 0.9% Normal Saline (1000mL) 1,000 ML 150 ML IV (03:37)
[2024-04-19] MEDS: Piperacil/Tazobactam 3.375 GM in 0.9% Normal Saline (50mL MB+) 50 ML IV ×3 (06:11→21:43)
[2024-04-19] MEDS: Cosyntropin 0.25 MG in 0.9% Normal Saline (Pres. free 4 ML 150 MG IV (06:12)
[2024-04-19 06:17] LABS: Absolute Lymphocyte Count 1.83 X10^3/uL (0.83-4.51); Basophil# 0.04 X10^3/uL; Basophil% 0.5 % (0-1); Eosinophil# 0.06 X10^3/uL; Eosinophils% 0.7 % (0-5); Hematocrit 40.4 % (37-47); Hemoglobin 13.3 g/dL (12.0-15.0); Lymphocyte # 1.83 X10^3/ul (0.83-4.51); Lymphocyte % 21.6 % (19-41); Mean Corp Hgb Conc 32.9 g/dL (32-36); Mean Corpuscular Hgb 28.4 pg (27.0-32.0); Mean Corpuscular Volume 86.3 fL (81-99); Mean Platelet Vol. 8.7 fl (6.2-12.0); Monocyte# 0.51 X10^3/uL; NRBC Flagged by Analyzer 0 % (0-5); Neutrophil # 6.02 X10^3/uL (2.7-7.7); Platelet Count 352 K/mm3 (150-450); RBC Distribution Width CV 12.6 % (11.6-14.6); RBC Distribution Width SD 39.6 fl (35.1-43.9); Red Blood Count 4.68 M/mm3 (4.2-5.4); White Blood Count 8.5 K/mm3 (4.4-11.0)
[2024-04-19 06:48] LABS: Anion Gap 5 (5-15); BUN 7 mg/dL (7-18); BUN/Creat Ratio 8.5 RATIO (10-20); Calcium,Total 8.6 mg/dL (8.5-10.1); Chloride 111 mmol/L (98-107); Creatinine, Serum 0.83 mg/dL (0.55-1.02); EST Glomerular Filtration Rate 77 mL/min (>60); Est Glom Filt Rate - Afr Amer 93 mL/min (>60); Estimated Creatinine Clearance 79.25 ml/min; Glucose 93 mg/dL (74-106); Potassium 3.5 mmol/L (3.5-5.1); Sodium Level 142 mmol/L (136-145)
--- NOTE | 2024-04-19 10:57 | CASEMGMT ---
SG SY Assessment Face to Face with patient for initial transition planning/care coordination assessment. SG SY introduced self and role at [facility], pt voices understanding. Pt is A&Ox4 and is resting comfortably in bed and is calm. Care providers, pharmacy, and demographics verified. Admitting dx: Acute Colitis LACE Strata: 2 PCP: Ge Specialists: Lucius (Surgeon), Friend (GI) [facility]: [employer] Prescription Benefit: Yes LNOK: Chris Alas (H) Living Arrangements: Pt lives with her in a 2 story home with a ramp to enter ADLs/IADLs: Ind Transportation: Self, DME: BP Monitor, Pulse ox. Denies further needs HHC/SNF: Denies history or needs Pt?s goal: Home Plan: Home no needs. 6-click is 24. Pt denies further needs or concerns moving forward and states that she feels safe returning home with her once she is medically ready. Report given to LOI BETTENCOURT CM. Walt Lemus RN, CM
--- NOTE | 2024-04-19 11:03 | PN_ITS ---
Subjective Subjective Patient seen and examined. is by bedside. Said her abdominal pain was much better. She had no other active complaints. Review of systems otherwise negative. She is due for colonoscopy today. Objective Data Objective Data Vital Signs: Vital Signs Temp Pulse Resp BP Pulse Ox O2 Del Method 99 F 89 18 97/64 98 Room Air 04/19/24 08:53 04/19/24 08:53 04/19/24 08:53 04/19/24 08:53 04/19/24 08:53 04/19/24 08:53 Oxygen Delivery Method Room Air Weight: 179 lb 10.828 oz Body Mass Index (BMI) 31.8 Intake & Output: Intake and Output for Last 24 Hours 04/17/24 04/18/24 04/19/24 23:59 23:59 23:59 Intake Total 2700 / 2700 2105 / 2105 Balance 2700 / 2700 2105 / 2105 Lab / Micro Data 04/19/24 06:00 04/19/24 06:00 Labs: Laboratory Results - last 24 hr 04/18/24 09:45: Antibody Screen NEGATIVE 04/18/24 14:10: Lactic Acid 0.9 04/18/24 20:15: ESR 18, D-Dimer Quant (PE/DVT) 0.31, Total Creatine Kinase 49 04/18/24 20:15: Total Creatine Kinase Cancelled, C-React Prot Ext Range 3.64 H, Rheumatoid Factor < 10.0 04/19/24 06:00: WBC 8.5, RBC 4.68, Hgb 13.3, Hct 40.4, MCV 86.3, MCH 28.4, MCHC 32.9, RDW Std Deviation 39.6, RDW Coeff of Ramos 12.6, Plt Count 352, MPV 8.7, Immature Gran % (Auto) 0.200, Neut % (Auto) 71.0 H, Lymph % (Auto) 21.6, [place] % (Auto) 6.0, Eos % (Auto) 0.7, Baso % (Auto) 0.5, Absolute Neuts (auto) 6.0, Absolute Lymphs (auto) 1.83, Nucleated RBC % 0, Sodium 142, Potassium 3.5, C hloride 111 H, Carbon Dioxide 26.0, Anion Gap 5, BUN 7, Creatinine 0.83, Estim Creat Clear Calc 79.25, Est GFR (MDRD) Af Amer 93, Est GFR (MDRD) Non-Af 77, B UN/Creatinine Ratio 8.5 L, Glucose 93, Calcium 8.6, Cortisol 10.50 04/19/24 06:55: Cortisol 36.60 H Micro: Microbiology 04/18/24 20:05 Stool Clostridioides difficile (PCR) - Final Physical Exam Const alert, oriented x3, no apparent distress and average body habitus General Appearance: cooperative HEENT normocephalic, head/scalp atraumatic, hearing grossly normal bilaterally and moist oral mucous membranes Eyes PERRL, EOMs intact bilaterally and conjunctivae normal Neck no lymphadenopathy and supple Resp normal respiratory effort, normal air movement, no retractions and clear to auscultation bilaterally Cardio regular rate, regular rhythm, S1 normal heart sound, S2 normal heart sound and no murmurs GI normal to inspection, nondistended, normoactive bowel sounds GI Narrative: abdomen soft, minimal tenderness, no guarding or rebound tenderness. Extremity normal to inspection, full ROM, normal capillary refill and no clubbing, cyanosis or edema General Extremity: no tenderness to palpation of joints or extremities Skin General Skin Exam: no breakdown Neuro oriented x3, CN's II-XII intact bilaterally, moves all extremities and no focal motor deficits Sensorium / Orientation: awake and alert Motor Exam: strength 5/5 throughout Psych thought process normal, cooperative and affect normal Appearance: appropriate Assessment & Plan Assessment/Plan (1) Acute lower GI bleeding: (2) Abdominal pain: PLAN: Plan #Acute colitis * Admitted with a complaint of abdominal pain. She also had rectal bleeding. Imaging done showed colitis of the transverse, descending and rectosigmoid colon * States she does have a history of ischemic colitis. * Being hydrated with IV fluids. Blood pressure running low at 97/64 today. * For colonoscopy today. GI on board. * Good today pantoprazole and IV Zosyn. * WBC is down to 8.5 today. * on IV morphine prn for pain. * Stool studies also ordered to make sure this is not infectious. Hypercoagulable panel as well as workup for adrenal insufficiency ordered. GI due to history of low blood pressure which developed after hysterectomy. #DVT prophylaxis: SCDs CODE STATUS: Full code * P Charges/Coding Visit Charges Inpatient E&M: 35338 Subs Hosp L2
[2024-04-19] MEDS: 0.9% Normal Saline (1000mL) 1,000 ML 125 ML IV ×2 (11:45→19:55)
[2024-04-19] MEDS: proCHLORPERazine 10 MG/2 ML Vial 5 MG IV (14:15)
--- NOTE | 2024-04-19 14:48 | PRE.ANES_ITS ---
ASA Classification* ASA Classification ASA Classification: 2 Assessment & Plan Anesthesia* Anesthesia Assessment Anesthesia Assessment: Discussed sedation and/or anesthesia options, risks, benefits, and alternatives with patient/parents/legal guardian/POA. Questions invited. The patient/parents/legal guardian/POA seems to understand and agrees to proceed with anesthesia plan. Reviewed the physical assessment, medical history, allergy history and patient home medications list prior to surgery/procedure/anesthetic and documented any changes. Performed airway and anesthesia risk assessments. Anesthesia Type Anesthesia Type: MAC (SEE WRITTEN PRE ANESTHESIA RECORD FOR FULL ASSESSMENT) Anesthesia Focused Assessment* Temperature: 98.4 F Pulse Rate: 80 Blood Pressure: 93/75 Respiratory Rate: 18 Pulse Ox: 97 Airway Assessment Mouth opens: >3 cm Mallampati Score: III Focused Labs Anesthesia Preop lab: CBC WBC 8.5 K/mm3 (4.4-11.0) 04/19/24 06:00 RBC 4.68 M/mm3 (4.2-5.4) 04/19/24 06:00 Hgb 13.3 g/dL (12.0-15.0) 04/19/24 06:00 Hct 40.4 % (37-47) 04/19/24 06:00 Plt Count 352 K/mm3 (150-450) 04/19/24 06:00 CHEMISTRY Potassium 3.5 mmol/L (3.5-5.1) 04/19/24 06:00 Sodium 142 mmol/L (136-145) 04/19/24 06:00 BUN 7 mg/dL (7-18) 04/19/24 06:00 Creatinine 0.83 mg/dL (0.55-1.02) 04/19/24 06:00 Glucose 93 mg/dL (74-106) 04/19/24 06:00 COAG Pre-Assessment Diagnosis/Proposed Procedure Planned Operative Procedure(s): EGD Anesthesia History Anesthesia History - director multimedia: Anesthesia History - director multimedia Hx Hospitalization 12/2021- 04/16/22 15:42 Any Problems With Anesthesia Yes: requires more than 04/19/24 03:48 normal, combative in the past Cholinesterase deficiency No 04/19/24 03:48 You/Your Family Experience No 04/19/24 03:48 fever (hyperthermia) with Relationship Recent Exposure to Contagious No 04/19/24 03:48 Disease Does patient have nerve No 04/19/24 03:48 stimulator Patient instructed to have device shut off --Does patient have Pacemaker or ICD? When Was Last Pacemaker Check QUESTION #4 FULL TEXT: You/Your Family Experience fever (hyperthermia) with Anesthesia Last Oral Intake Last Oral intake: Last Oral Intake NPO since Meds taken in AM with sips of water? Meds patient instructed to take am of surgery PONV PONV - director multimedia: PONV - director multimedia Female HX of Motion Sickness HX of N/V After Surgery Non-Smoker Duration of Surgery greater than 60 minutes Number of Risk Factors PONV Score Height & Weight Height & Weight: Anesthesia: Height & Weight Height 5 ft 3 in 04/18/24 12:03 Weight: 81.5 kg 04/18/24 12:03 Body Mass Index (BMI) 31.8 04/18/24 12:03 Respiratory Assessment Respiratory Assessment - director multimedia: Respiratory Tract Infection Hx - director multimedia Hx Respiratory Tract Infection Yes: 314 URI 04/19/24 03:48 STOP Sleep Apnea STOP Sleep Apnea - director multimedia: STOP Sleep Apnea - director multimedia Hx Hypertension No 04/18/24 12:03 Hx Sleep Apnea No 04/18/24 12:03 CPAP BIPAP Do you snore loudly (louder No 04/18/24 12:03 than talking or can be heard Do you often feel tired/ No 04/18/24 12:03 fatigued/ sleepy during daytime? Has anyone observed you stop No 04/18/24 12:03 breathing during sleep? STOP Results Negative 04/18/24 12:03 QUESTION #5 FULL TEXT : Do you snore loudly (louder than talking or can be heard through closed doors)? 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 Specify any problems Hx of Preganancy in last 3 No 04/18/24 12:03 Months Nurse Filling Out Transfusion [email or web address] 04/18/24 12:03 & Questions: Date: 04/18/24 04/18/24 12:03 Time: 12:16 04/18/24 12:03 Patient unable to answer at this time (ie. confused, unrespo /Reproduction History /Reproductive History - director multimedia: /Reproductive Hx- director multimedia Hx Now No 04/19/24 03:48 Gestational Age (in weeks): EDC: Hx Hx Para Hx Section SAB No 04/16/22 15:42 Active Medications Active Medications: Current Medications Generic Name Dose Route Start Last Admin Trade Name Freq PRN Reason Stop Dose Admin Calamine/Phenol 1 applic 04/19/24 10:00 04/19/24 09:01 Menthol/Lanolin/Calamine/Znox 113 Gm Tube TOPICAL Not Given BID HOLDEN Protocol Piperacillin Sod/Tazobactam 50 mls @ 12.5 mls/hr 04/18/24 22:00 04/19/24 13:29 Sod 3.375 gm/ Sodium Chloride IV 12.5 mls/hr Q8 HOLDEN Administration Sodium Chloride 500 mls @ 15 mls/hr 04/18/24 12:08 IV .[id number] PRN Saline Flush Sodium Chloride 500 mls @ 15 mls/hr 04/18/24 12:08 IV .[id number] PRN Additional IVPB Infusion Sodium Chloride 1,000 mls @ 125 mls/hr 04/19/24 11:25 04/19/24 11:45 IV 04/20/24 03:24 125 mls/hr .Q8H HOLDEN Administration Protocol Morphine Sulfate 1 mg 04/18/24 14:41 04/19/24 01:44 Morphine 2 Mg/Ml Syringe IV 1 mg Q2H PRN PRN Administration Pain Score 6-10 Ondansetron HCl 4 mg 04/18/24 16:12 04/19/24 01:43 Ondansetron 4 Mg/2 Ml Vial IV 4 mg Q6H PRN PRN Administration NAUSEA Prochlorperazine Edisylate 5 mg 04/19/24 13:53 04/19/24 14:15 Prochlorperazine 10 Mg/2 Ml Vial IV 5 mg Q6H PRN PRN Administration NAUSEA/VOMITING Promethazine HCl 10 mg 04/18/24 21:00 04/19/24 14:07 Promethazine 25 Mg/Ml Syringe IM Not Given Q6H HOLDEN Sodium Chloride 10 - 40 ml 04/18/24 12:08 04/19/24 06:05 0.9% Saline Lock 10 Ml Syringe IV 10 ml UD PRN Administration SALINE FLUSH PFSH Medical History Wears hearing aid Wears glasses Arthritis High cholesterol History of ulceration History of IBS Heartburn Gastric reflux Former smoker History of echocardiogram History of stress test Rheumatoid arthritis Acute hemorrhagic colitis GERD (gastroesophageal reflux disease) Reflux esophagitis Endometriosis Home Medications ?Medication ?Instructions ?Recorded ?Last Taken ?Type hyoscyamine sulfate 0.125 mg 0.125 mg PO BID-QID PRN abdominal 10/21/22 04/17/24 Rx disintegrating tablet pain #120 tabs omeprazole 40 mg capsule,delayed 40 mg PO DAILY #90 caps 10/21/22 04/17/24 Rx release semaglutide (weight loss) 1.7 1.7 mg subcut Q7D 04/18/24 04/16/24 History mg/0.75 mL subcutaneous pen injector Allergy/AdvReac Type Severity Reaction Status Date / Time No Known Allergies Allergy Verified 04/18/24 09:10 Family History Father Heart disease Hypertension Hyperlipidemia Thyroid disorder Skin cancer Grandmother Breast cancer Mother Brain cancer Other Brain tumor Surgical History History of cardiac catheterization Hx of foot surgery H/O laparoscopy Hx of tonsillectomy History of appendectomy History of hysterectomy Social History Smoking Status: Former smoker Review of Systems (Anesthesia) ROS Narrative System reviewed and no additional complaints, except as documented.
--- NOTE | 2024-04-19 15:59 | OP.COLON_ITS ---
Patient Name: Gisela Alas Procedure Date: 04/19/2024 3:22 PM Date of : 1970 Age: 53 Procedure: Colonoscopy Indications: Hematochezia Providers: Jose Rodriguez DO Medicines: Monitored Anesthesia Care Patient Profile: This is a 53 year old female. Refer to note in patient chart for documentation of history and physical. Last Colonoscopy: within the past 3 years. Complications: No immediate complications. Procedure: Pre-Anesthesia Assessment: - Prior to the procedure, a History and Physical was performed, and patient medications and allergies were reviewed. The patient is competent. The risks and benefits of the procedure and the sedation options and risks were discussed with the patient. All questions were answered and informed consent was obtained. Patient identification and proposed procedure were verified by the physician in the pre-procedure area. Mental Status Examination: alert and oriented. Airway Examination: normal oropharyngeal airway and neck mobility. Respiratory Examination: clear to auscultation. CV Examination: normal. Prophylactic Antibiotics: The patient does not require prophylactic antibiotics. Prior Anticoagulants: The patient has taken no anticoagulant or antiplatelet agents except for NSAID medication. ASA Grade Assessment: II - A patient with mild systemic disease. After reviewing the risks and benefits, the patient was deemed in satisfactory condition to undergo the procedure. The anesthesia plan was to use moderate sedation / analgesia (conscious sedation). Immediately prior to administration of medications, the patient was re-assessed for adequacy to receive sedatives. The heart rate, respiratory rate, oxygen saturations, blood pressure, adequacy of pulmonary ventilation, and response to care were monitored throughout the procedure. The physical status of the patient was re-assessed after the procedure. After I obtained informed consent, the scope was passed under direct vision. Throughout the procedure, the patient's blood pressure, pulse, and oxygen saturations were monitored continuously. The colonoscope was introduced through the anus and advanced to the terminal ileum. The colonoscopy was performed without difficulty. The patient tolerated the procedure well. The quality of the bowel preparation was good. Scope In: 3:35:34 PM Scope Out: 3:54:24 PM Total Procedure Duration Time 0 hours 18 minutes 50 seconds Findings: The perianal and digital rectal examinations were normal. Segmental moderate inflammation characterized by erosions, erythema and friability was found in the sigmoid colon, in the descending colon, at the splenic flexure and in the transverse colon. Biopsies were taken with a cold forceps for histology. Verification of patient identification for the specimen was done. Estimated blood loss was minimal. A patchy area of the terminal ileum was congested. Biopsies were taken with a cold forceps for histology. Verification of patient identification for the specimen was done. Estimated blood loss was minimal. Impression: - Segmental moderate inflammation was found in the sigmoid colon, in the descending colon, at the splenic flexure and in the transverse colon secondary to colitis. Biopsied. - Congested mucosa in the terminal ileum. Biopsied. Recommendation: - Discharge patient to home. - Resume previous diet. - Continue present medications. - Await pathology results. - Repeat colonoscopy in 5 years for surveillance. Procedure Code(s): --- Professional --- 84527, Colonoscopy, flexible; with biopsy, single or multiple CPT copyright 2021 [employer]. All rights reserved. The codes documented in this report are preliminary and upon campaign advisor review may be revised to meet current compliance requirements. Jose Rodriguez DO 04/19/2024 3:58:59 PM This report has been signed electronically. Number of Addenda: 0 Note Initiated On: 04/19/2024 3:22 PM
--- NOTE | 2024-04-19 15:59 | OP.CCLET_ITS ---
04/19/2024 Juan Carolina [address] [place] [address] Re : Colonoscopy procedure for Gisela Alas Dear Dr. Carolina This procedure was performed on Friday, April 19, 2024. My impressions and recommendations are as follows: Impressions : - Segmental moderate inflammation was found in the sigmoid colon, in the descending colon, at the splenic flexure and in the transverse colon secondary to colitis. Biopsied. - Congested mucosa in the terminal ileum. Biopsied. Recommendations : - Discharge patient to home. - Resume previous diet. - Continue present medications. - Await pathology results. - Repeat colonoscopy in 5 years for surveillance. My findings are described in the full procedure note, which is enclosed. If I can be of further assistance, please feel free to contact me at . Sincerely, Jose Rodriguez, 04/19/2024 3:58:59 PM This report has been signed electronically.
--- NOTE | 2024-04-19 16:06 | PCM.POST.ANE ---
Anesthesia: Postop Eval I Current Vital Signs Temperature: 97 F Pulse Rate: 81 Blood Pressure: 98/61 Respiratory Rate: 16 Pulse Ox: 97 Oxygen Delivery Method: Room Air Assessment Airway patent: Yes Spontaneous unlabored respirations: Yes Mental status: Asleep nausea: No Vomiting: No Anesthesia Complication: No Fluid Hydration Crystalloid volume administer (ml): 40 Total IV fluid infused: 40 Progress Note Anesthesia document: Postop Eval 1 completed: Yes
--- NOTE | 2024-04-19 16:14 | PCM.POSTANE2 ---
Anesthesia Postop Eval I Sum Postop Eval Completion status Anesthesia document: Postop Eval 1 completed: Yes Anesthesia Postop Eval I Summary Anesthesia Postop Eval I Summary: Anesthesia Postop Eval I: Assessment Summary Airway patent Yes 04/19/24 16:07 [email or web address] Spontaneous unlabored Yes 04/19/24 16:07 [email or web address] respirations Mental status Asleep 04/19/24 16:07 [email or web address] nausea No 04/19/24 16:07 [email or web address] Vomiting No 04/19/24 16:07 [email or web address] Anesthesia Postop Eval I: Fluid Summary Crystalloid volume administer 40 04/19/24 16:07 [email or web address] (ml) Colloids volume administered ( ml) Blood Product volume administered (ml) Total IV fluid infused 40 04/19/24 16:07 [email or web address] Anesthesia Postop Eval I: Summary Notes Anesthesia Complication No 04/19/24 16:07 [email or web address] Anesthesia Complication Comment: Post-operative progress note Anesthesia: Postop Eval II Evaluation Mental status: Awake Pain Level: 0 nausea: No Vomiting: No
[2024-04-20 04:00] VITALS: BP 111/75; PULSE 85; RESP 17; TEMP 36.8; O2SAT 98
[2024-04-20 05:41] LABS: Absolute Lymphocyte Count 2.12 X10^3/uL (0.83-4.51); Absolute Neutrophil Count 4.5 X10^3/uL (2.0-7.7); Basophil# 0.03 X10^3/uL; Basophil% 0.4 % (0-1); Eosinophil# 0.04 X10^3/uL; Eosinophils% 0.6 % (0-5); Hematocrit 34.9 % (37-47); Hemoglobin 11.6 g/dL (12.0-15.0); Lymphocyte # 2.12 X10^3/ul (0.83-4.51); Lymphocyte % 29.4 % (19-41); Mean Corp Hgb Conc 33.2 g/dL (32-36); Mean Corpuscular Hgb 28.2 pg (27.0-32.0); Mean Corpuscular Volume 84.9 fL (81-99); Mean Platelet Vol. 9.1 fl (6.2-12.0); Monocyte# 0.48 X10^3/uL; Monocyte% 6.7 % (0-10); NRBC Flagged by Analyzer 0 % (0-5); Neutrophil # 4.52 X10^3/uL (2.7-7.7); Neutrophil % 62.6 % (47-70); Platelet Count 300 K/mm3 (150-450); RBC Distribution Width CV 12.2 % (11.6-14.6); RBC Distribution Width SD 37.7 fl (35.1-43.9); Red Blood Count 4.11 M/mm3 (4.2-5.4); White Blood Count 7.2 K/mm3 (4.4-11.0)
[2024-04-20 06:06] LABS: Anion Gap 6 (5-15); BUN 6 mg/dL (7-18); BUN/Creat Ratio 8.4 RATIO (10-20); Calcium,Total 8.6 mg/dL (8.5-10.1); Chloride 113 mmol/L (98-107); Creatinine, Serum 0.72 mg/dL (0.55-1.02); EST Glomerular Filtration Rate 90 mL/min (>60); Est Glom Filt Rate - Afr Amer 109 mL/min (>60); Estimated Creatinine Clearance 91.35 ml/min; Glucose 84 mg/dL (74-106); Potassium 3.2 mmol/L (3.5-5.1); Sodium Level 142 mmol/L (136-145)
[2024-04-20] MEDS: Piperacil/Tazobactam 3.375 GM in 0.9% Normal Saline (50mL MB+) 50 ML IV (06:07)
[2024-04-20] MEDS: Potassium Chloride Oral Tablet 20 MEQ 40 MEQ PO (07:53)
[2024-04-20 07:56] VITALS: BP 117/75; PULSE 87; RESP 16; TEMP 36.5; O2SAT 99
--- NOTE | 2024-04-20 09:34 | DS.PCM_ITS ---
Providers Date of Admission: 04/18/24 Date of Discharge: 04/20/24 Primary Care Physician: Dr. Juan Carolina MD Reason For Visit: ACUTE COLITIS Diagnosis Discharge Diagnosis (1) Acute lower GI bleeding: Status: Acute Code(s): K92.2 - Gastrointestinal hemorrhage, unspecified (2) Abdominal pain: Status: Acute Code(s): R10.9 - Unspecified abdominal pain Plan #Acute colitis * Admitted with a complaint of abdominal pain. She also had rectal bleeding. Imaging done showed colitis of the transverse, descending and rectosigmoid colon * States she does have a history of ischemic colitis. * Being hydrated with IV fluids. Blood pressure running low at 97/64 today. * For colonoscopy today. GI on board. * Good today pantoprazole and IV Zosyn. * WBC is down to 8.5 today. * on IV morphine prn for pain. * Stool studies also ordered to make sure this is not infectious. Hypercoagulable panel as well as workup for adrenal insufficiency ordered. GI due to history of low blood pressure which developed after hysterectomy. #DVT prophylaxis: SCDs CODE STATUS: Full code * P Medications at Discharge Home Medications hyoscyamine sulfate 0.125 mg disintegrating tablet 0.125 mg PO BID-QID PRN abdominal pain #120 tabs 10/21/22 omeprazole 40 mg capsule,delayed release 40 mg PO DAILY #90 caps 10/21/22 semaglutide (weight loss) 1.7 mg/0.75 mL subcutaneous pen injector 1.7 mg subcut Q7D 04/18/24 ciprofloxacin HCl 500 mg tablet 500 mg PO BID #10 tabs 04/20/24 metronidazole 500 mg tablet 500 mg PO Q8H #15 tabs 04/20/24 Hospital Course Operations None Procedures Colonoscopy Summary of Care Provided Minutes Spent on Discharge: 55 Hospital Course: FRANK VENTURA, is a 53 F with a PMH as outlined who presents via the ED on 04/18/2024 with a complaint of abdominal pain and rectal bleeding. Her symptoms started in the early hours of hte day of admission. It started with the abdominal pain, which was mainly in the left lower quadrant, and subsequently had bright red bleeding per rectum. She admits to a history of ischemic colitis.Review of systems was otherwise negative. Vitals in the ED were BP of 129/77, LA of 82, RR of 15 and temp of 96.9F. She was saturating at 97% on room air. CBC showed hb of 15.7, wbc was 11.5 and platelets of 390. Chemistry showed sodium of 143, potassium of 4.2, bicarb of 25 and anion gap of 9. Cr was 0.98. Lactic acid was 2.1. CT of the abdomen and pelvis showed colitis of the transverse colon as well as splenic flexure, descending colon and rectosigmoid colon. She was admitted to be managed for acute colitis. She was started on IV Zosyn in the ED. Gastroenterology was consulted. Her abdominal pain did improve and she felt much better. She had colonoscopy which showed segmental moderate inflammation in hte sigmoid, descending colon and splenic flexure and in the transverse colon secondary to colitis. These were biopsied. She felt much better and was able to tolerate a diet. She was discharged on PO ciprofloxacin and PO metronidazole x 5 days. She is to follow up with her PCP and with gastroenterology within 1-2 weeks. Patient seen and examined prior to discharge. She had no active complaints. was by her bedside. Review of systems is otherwise negative. Labs and vitals reviewed. Home meds reviewed and reconciled. Physical Exam Const alert, oriented x3, no apparent distress and average body habitus General Appearance: cooperative and comfortable Orientation / Consciousness: awake Exam Limitations: no limitations HEENT normocephalic, head/scalp atraumatic, hearing grossly normal bilaterally and moist oral mucous membranes Mouth: oral and palatal mucosa normal Eyes PERRL, EOMs intact bilaterally and conjunctivae normal Neck no lymphadenopathy and supple Resp normal respiratory effort, normal air movement, no retractions and clear to auscultation bilaterally Cardio regular rate, regular rhythm, S1 normal heart sound, S2 normal heart sound and no murmurs GI normal to inspection, nondistended, normoactive bowel sounds Extremity normal to inspection, full ROM, normal capillary refill and no clubbing, cyanosis or edema General Extremity: no tenderness to palpation of joints or extremities Skin no rashes or lesions noted General Skin Exam: no breakdown Neuro oriented x3, CN's II-XII intact bilaterally, moves all extremities and no focal motor deficits Sensorium / Orientation: awake and alert Motor Exam: strength 5/5 throughout Psych thought process normal, cooperative and affect normal Appearance: appropriate Weight / BMI Weight Weight: 179 lb 10.828 oz Body Mass Index (BMI) 31.8 ABG / Lab / Microbiology Data 04/20/24 04:45 04/20/24 04:45 Laboratory: Laboratory Results - last 24 hr 04/20/24 04:45: WBC 7.2, RBC 4.11 L, Hgb 11.6 L, Hct 34.9 L, MCV 84.9, MCH 28.2, MCHC 33.2, RDW Std Deviation 37.7, RDW Coeff of Ramos 12.2, Plt Count 300, MPV 9.1, Immature Gran % (Auto) 0.300, Neut % (Auto) 62.6, Lymph % (Auto) 29.4, [place] % (Auto) 6.7, Eos % (Auto) 0.6, Baso % (Auto) 0.4, Absolute Neuts (auto) 4.5, Absolute Lymphs (auto) 2.12, Nucleated RBC % 0, Sodium 142, Potassium 3.2 L, C hloride 113 H, Carbon Dioxide 23.0, Anion Gap 6, BUN 6 L, Creatinine 0.72, Estim Creat Clear Calc 91.35, Est GFR (MDRD) Af Amer 109, Est GFR (MDRD) Non-Af 90, B UN/Creatinine Ratio 8.4 L, Glucose 84, Calcium 8.6 Microbiology: Microbiology 04/18/24 20:05 Stool Clostridioides difficile (PCR) - Final D/C Instructions Discharge Diet: Low fat / Low cholesterol Discharge Activity: Return to Normal Activity Weight Bearing Status: Weight bearing as tolerated Call your doctor if you observe: Fever of 101 or Higher, Shortness of breath, Dizziness, Swelling in the ankles, Chest pain and Uncontrolled pain Meaningful Use Info Meaningful Use Meaningful Use Diagnoses (Choose all that apply): None applicable Ischemic Stroke Statin Dosing Therapy Reference: STATIN DOSE THERAPY REFERENCE: * Patients > 75 years receive moderate or high dose statin therapy. * Patients 75 years or YOUNGER should receive HIGH intensity statin dose unless contraindicated. You will be required to document reason for non-treatment if statin daily dose does not meet guidelines. HIGH DOSE STATIN THERAPY DAILY Atorvastatin > than or = to 40 mg Rosuvastatin > than or = to 20 mg Amlodipine + Atorvastatin > than or = to 2.5/40 mg Ezetimibe + Simvastatin 10/80 mg Simvastatin 80mg Discharge Plan Admission Admit Date/Time: 04/18/24 11:20 Primary Reason for Your Visit: acute colitis Attending Provider: Karissa Hernandez Primary Care Provider: Juan Carolina Instructions Patient Instructions: ED Understanding Colitis Discharge Orders/Prescriptions Prescriptions: New ciprofloxacin HCl 500 mg tablet 500 mg PO BID Qty: 10 0RF metronidazole 500 mg tablet 500 mg PO Q8H Qty: 15 0RF Continued hyoscyamine sulfate 0.125 mg tablet,disintegrating 0.125 mg PO BID-QID PRN (Reason: abdominal pain) Qty: 120 3RF omeprazole 40 mg capsule,delayed release(DR/EC) 40 mg PO DAILY Qty: 90 3RF semaglutide (weight loss) 1.7 mg/0.75 mL pen injector 1.7 mg subcut Q7D Referrals / Follow Up: Jose Rodriguez DO [Med Staff - Active Staff] - Within 2 Weeks Juan Carolina MD [Primary Care Provider] - Within 1 Week Care Physician,No Primary [Non-Staff] - Disposition Disposition (needs filled in before D/C Order can be placed): Home, Self Care Charges/Coding Visit Charges Inpatient E&M: 98080 Disch Hosp >30min
--- NOTE | 2024-04-20 09:41 | DCINST_ITS ---
Discharge Instructions Diet Discharge Diet: Low fat / Low cholesterol Activity Discharge Activity: Return to Normal Activity Weight Bearing Status: Weight bearing as tolerated Dressing / Incision Call your doctor if you observe: Fever of 101 or Higher, Shortness of breath, Dizziness, Swelling in the ankles, Chest pain and Uncontrolled pain Follow Up Care Test Results: Test results from this visit will be discussed in further detail at your follow- up appointment, if applicable. Discharge Plan Admission Admit Date/Time: 04/18/24 11:20 Primary Reason for Your Visit: acute colitis Attending Provider: Karissa Hernandez Primary Care Provider: Juan Carolina Instructions Patient Instructions: ED Understanding Colitis Discharge Orders/Prescriptions Prescriptions: New ciprofloxacin HCl 500 mg tablet 500 mg PO BID Qty: 10 0RF metronidazole 500 mg tablet 500 mg PO Q8H Qty: 15 0RF Continued hyoscyamine sulfate 0.125 mg tablet,disintegrating 0.125 mg PO BID-QID PRN (Reason: abdominal pain) Qty: 120 3RF omeprazole 40 mg capsule,delayed release(DR/EC) 40 mg PO DAILY Qty: 90 3RF semaglutide (weight loss) 1.7 mg/0.75 mL pen injector 1.7 mg subcut Q7D Referrals / Follow Up: Jose Rodriguez DO [Med Staff - Active Staff] - Within 2 Weeks Juan Carolina MD [Primary Care Provider] - Within 1 Week Care Physician,No Primary [Non-Staff] - Disposition Disposition (needs filled in before D/C Order can be placed): Home, Self Care
[2024-04-20 11:10] LABS: Anti-Centromere B Ab <0.2 AI (0.0-0.9); Anti-Chromatin <0.2 AI (0.0-0.9); Anti-Jo <0.2 AI (0.0-0.9); Anti-Scleroderma-70 AB <0.2 AI (0.0-0.9); Anti-dsDNA Ab 1 IU/mL (0-9); RNP Ab <0.2 AI (0.0-0.9); SJOGREN'S Anti-SS-A test < 0.2 AI (0.0-0.9); SJOGREN'S Anti-SS-B test < 0.2 AI (0.0-0.9); Smith Ab <0.2 AI (0.0-0.9)
[2024-04-20 15:08] LABS: Cytoplasmic Ab (C-ANCA) <1:20 titer (Neg:<1:20); Perinuclear Ab (P-ANCA) <1:20 titer (Neg:<1:20)
[2024-04-26 10:10] LABS: ALDOSTERONE/RENIN RATIO <1.7 (0.0-30.0); Aldolase 2.8 U/L (3.3-10.3); Aldosterone, Serum < 1.0 ng/dL (0.0-30.0); CCP IgG Antibodies 6 units (0-19); Renin, Plasma 0.578 ng/mL/hr (0.167-5.380)
[2024-04-26 10:10] LABS: Anti-Cardiolipin Ab, IgG, Qn < 9 GPL U/mL (0-14); Anti-Cardiolipin Ab, IgM, Qn < 9 MPL U/mL (0-12); Anti-Thrombin 3 AG, Immunol 76 % (72-124); Antithrombin 3 Function 102 % (75-135); Beta-2-Glycoprotein I IgA <9 (0-25); Beta-2-Glycoprotein I IgG <9 (0-20); Beta-2-Glycoprotein I IgM <9 (0-32); Protein C Antigen 127 % (60-150); Protein C, Functional 154 % (73-180)
== END 2024-04-20 10:00 | disposition home or self-care (01) | DRG 392 ==
LOC: ED 11:16 → MS3 11:35
PROVIDERS: Internal Medicine Gastroenterology; Admitting Provider Student in an Organized Health Care Education/Training Program; Emergency Provider Emergency Medicine; PCP Internal Medicine; Visit Provider Student in an Organized Health Care Education/Training Program
PROC: 0DJD8ZZ Inspection of Lower Intestinal Tract, Via Natural or Artificial Opening Endoscopic (ICD-10-PCS; CPT 45378; principal; 2024-04-19 15:25)
DX: K52.9 Noninfective gastroenteritis and colitis, unspecified (principal); E78.00 Pure hypercholesterolemia, unspecified; K21.9 Gastro-esophageal reflux disease without esophagitis; Z87.891 Personal history of nicotine dependence; Z90.710 Acquired absence of both cervix and uterus; Z79.899 Other long term (current) drug therapy; Z90.49 Acquired absence of other specified parts of digestive tract
CPT/HCPCS: 36415; 74177; 80048; 81240; 81241; 82085; 82088; 82533; 82550; 83605; 84244; 85025; 85300; 85301; 85302; 85303; 85379; 85652; 86037; 86140; 86146; 86147; 86200; 86225; 86235; 86431; 86850; 86900; 86901; 87493; 88305; 99284; J7030; Q9967; A4216; J0834; J2405; J3490

== ENCOUNTER → 2024-05-05 | Outpatient (CLI) | payer OTHER, SELFPAY ==
[2024-05-05 12:19] LABS: Absolute Lymphocyte Count 1.81 X10^3/uL (0.83-4.51); Absolute Neutrophil Count 2.9 X10^3/uL (2.0-7.7); Basophil# 0.06 X10^3/uL; Basophil% 1.1 % (0-1); Eosinophil# 0.09 X10^3/uL; Eosinophils% 1.7 % (0-5); Hematocrit 41.8 % (37-47); Hemoglobin 13.9 g/dL (12.0-15.0); Lymphocyte # 1.81 X10^3/ul (0.83-4.51); Lymphocyte % 34.2 % (19-41); Mean Corp Hgb Conc 33.3 g/dL (32-36); Mean Corpuscular Hgb 28.7 pg (27.0-32.0); Mean Corpuscular Volume 86.4 fL (81-99); Mean Platelet Vol. 9.1 fl (6.2-12.0); Monocyte# 0.42 X10^3/uL; Monocyte% 7.9 % (0-10); NRBC Flagged by Analyzer 0 % (0-5); Neutrophil % 54.7 % (47-70); Platelet Count 327 K/mm3 (150-450); RBC Distribution Width CV 13.2 % (11.6-14.6); RBC Distribution Width SD 41.3 fl (35.1-43.9); Red Blood Count 4.84 M/mm3 (4.2-5.4); White Blood Count 5.3 K/mm3 (4.4-11.0)
[2024-05-05 13:31] LABS: CRP < 2.90 mg/L (0.0-3.0)
== END | disposition home or self-care (01) ==
LOC: LAB 11:49
PROVIDERS: PCP Internal Medicine; Referring Provider Nurse Practitioner Acute Care; Visit Provider Nurse Practitioner Acute Care
DX: D64.9 Anemia, unspecified (principal); R12 Heartburn; R19.7 Diarrhea, unspecified
CPT/HCPCS: 36415; 85025; 86140

== ENCOUNTER 2024-05-29 12:19 | Emergency (ER) | payer OTHER, SELFPAY ==
[2024-05-29 12:20] VITALS: BP 163/89; PULSE 88; RESP 23; TEMP 35.7; O2SAT 99; BMI 30.9
[2024-05-29 12:23] VITALS: BP 163/98; PULSE 90; RESP 23; TEMP 35.7; O2SAT 99
--- NOTE | 2024-05-29 12:38 | CT_ITS ---
HISTORY: abdominal pain. TECHNIQUE: Helically acquired images were obtained of the abdomen and pelvis after the intravenous administration of 100 mL 100mL [id number]-370. A radiation dose optimization technique was used for this scan. 412 images. COMPARISON: 04/18/2024. FINDINGS: LOWER CHEST: Lung bases clear. BOWEL: Tiny hiatal hernia. Bowel nondilated. Appendectomy. Mild colonic diverticulosis without focal inflammatory change observed. PERITONEUM: No significant ascites. LIVER: No enhancing mass. Mild fatty infiltration. GALLBLADDER/BILIARY TREE: Gallbladder present. SPLEEN/PANCREAS/ADRENAL GLANDS: Homogeneous and nonenlarged. KIDNEYS: Mild left hydronephrosis and hydroureter with a 1 mm UVJ calculus. Unremarkable right kidney. VESSELS: No abdominal aortic aneurysm. PELVIC ORGANS: Hysterectomy. BONES: Bilateral L5 spondylolysis without significant spondylolisthesis. 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 CT/Abdomen/Pelvis W IV Cont ONLY IMPRESSION: Mild left hydronephrosis secondary to a 1 mm UVJ calculus. Mild colonic diverticulosis without acute diverticulitis. Tiny hiatal hernia. Hepatic steatosis. Electronically Signed: Kim Yates MD at 14:19 EST ,
--- NOTE | 2024-05-29 12:43 | EDS_ITS ---
HPI <WILLY Kidd - Last Filed: 05/29/24 15:58> History of Present Illness Chief Complaint: Abd Pain Narrative Narrative: Patient is a 53-year-old female with history of hemorrhagic colitis, GERD who does see Dr. Rodriguez. Patient's last visit to the emerged department was March 2024. Patient states that today while at [employer], she developed significant abdominal pain, followed by vomiting and nausea. Patient dates has had multiple episodes of vomitus. She denies any bloody diarrhea. Patient's last bowel movement was yesterday and it was normal. She denies any fever or chills. Patient did come in via ambulance. [facility] <WILLY Kidd - Last Filed: 05/29/24 15:58> [facility] Medical History (Updated 05/29/24 @ 15:56 by WILLY Kidd) Ischemic colitis Wears hearing aid Wears glasses Arthritis High cholesterol History of ulceration History of IBS Heartburn Gastric reflux Former smoker History of echocardiogram History of stress test Rheumatoid arthritis Acute hemorrhagic colitis GERD (gastroesophageal reflux disease) Reflux esophagitis Endometriosis Home Medications ?Medication ?Instructions ?Recorded ?Last Taken ?Type hyoscyamine sulfate 0.125 mg 0.125 mg PO BID-QID PRN abdominal 10/21/22 04/17/24 Rx disintegrating tablet pain #120 tabs omeprazole 40 mg capsule,delayed 40 mg PO DAILY #90 caps 10/21/22 04/17/24 Rx release semaglutide (weight loss) 1.7 1.7 mg subcut Q7D 04/18/24 04/16/24 History mg/0.75 mL subcutaneous pen injector midodrine 5 mg tablet 5 mg PO TID #90 tabs 04/21/24 Unknown Rx cyclobenzaprine 10 mg tablet 10 mg PO TID PRN Muscle Spasm #10 05/29/24 Unknown Rx TABLETS ondansetron 4 mg disintegrating 4 mg PO Q8H PRN PRN Nausea #10 tabs 05/29/24 Unknown Rx tablet oxycodone-acetaminophen 5 mg-325 1 tab PO Q8H PRN pain 3 days #10 05/29/24 Unknown Rx mg tablet (Percocet) tabs tamsulosin 0.4 mg capsule (Flomax) 0.4 mg PO DAILY #7 caps 05/29/24 Unknown Rx Allergy/AdvReac Type Severity Reaction Status Date / Time No Known Allergies Allergy Verified 05/29/24 12:23 Family History Father Heart disease Hypertension Hyperlipidemia Thyroid disorder Skin cancer Grandmother Breast cancer Mother Brain cancer Other Brain tumor Surgical History History of cardiac catheterization Hx of foot surgery H/O laparoscopy Hx of tonsillectomy History of appendectomy History of hysterectomy Social History Smoking Status: Former smoker ROS <WILLY Kidd - Last Filed: 05/29/24 15:58> ROS ED ROS Narrative Constitutional: Negative for fever, chills, weight loss, weakness Eyes: Negative for vision loss, vision change, double vision ENT: Negative for any sore throat, ear pain, congestion Cardiovascular: Negative for any chest pain, tightness, palpitations Respiratory: Negative for any cough, sputum production, hemoptysis, dyspnea, dyspnea on exertion, orthopnea Gastrointestinal: Negative for any diarrhea, constipation, blood in stool, blood in vomit. Positive for abdominal pain, nausea and vomiting : Negative for any urinary frequency, dysuria, retention, blood in urine Muscle skeletal: Negative for any neck pain, back pain Neurological: Negative for any headache, syncope, dizziness Skin: Negative for any rashes, itching, abrasions, lacerations Psychiatric: Negative for any depression, anxiety, stress, suicidal ideation, homicidal ideation Hematologic: Negative for any excessive bruising, easy bleeding EXAM <WILLY Kidd - Last Filed: 05/29/24 15:58> Physical Exam Narrative Exam Narrative: Vital signs reviewed. On my initial evaluation, was hyperventilating, grunting. Patient did have some vomitus here. Patient secondary to the grunting, tachypnea, is difficult to get information from the patient. I did speak with the patient's . HEET: Head normocephalic atraumatic, TMs clear bilaterally. Posterior pharynx is clear, moist mucous membranes. Nares clear bilaterally. Neck: Supple with no lymphadenopathy or tenderness. No signs of meningismus. Cardiac: Regular rate and rhythm no murmurs gallops or rubs, equal peripheral pulses bilaterally. Respiratory: Lungs clear to auscultation bilaterally. No chest tenderness. Abdomen: Soft, nondistended. No abdominal bruit or pulsatile masses. No hepatosplenomegaly. Difficult to get a appropriate abdominal exam, most the patient's pain seem to be in the left lower, left flank area. Extremities: No peripheral edema, no signs of gross trauma or deformity. Active full range of motion of all extremities. Neuro: Cranial nerves II through XII intact, no focal neurological deficits. Skin: Clean dry and intact with no rash, purpura, petechiae, vesicles or pustules. Backs/flank: No CVA tenderness, no midline spinal tenderness, no deformity. Psych: Normal mood and affect. No SI, HI or acute psychosis. Const Vital Signs: 05/29/24 12:20 05/29/24 12:20 05/29/24 12:23 Temperature 96.2 F L 96.2 F L Temperature Source Temporal Temporal Pulse Rate 88 90 Respiratory Rate 23 H 23 H Blood Pressure 163/89 H 163/98 H Blood Pressure Mean 113 119 Pulse Ox 99 99 Oxygen Delivery Method Room Air Room Air 05/29/24 13:23 05/29/24 14:00 Temperature 97.5 F L 97.5 F L Temperature Source Oral Oral Pulse Rate 100 94 Respiratory Rate 18 18 Blood Pressure 120/110 H 140/122 H Blood Pressure Mean 113 128 Pulse Ox 99 97 Oxygen Delivery Method Room Air Room Air <Dr. Tunde Bedolla DO - Last Filed: 05/29/24 15:52> Physical Exam Const Vital Signs: 05/29/24 12:20 05/29/24 12:20 05/29/24 12:23 Temperature 96.2 F L 96.2 F L Temperature Source Temporal Temporal Pulse Rate 88 90 Respiratory Rate 23 H 23 H Blood Pressure 163/89 H 163/98 H Blood Pressure Mean 113 119 Pulse Ox 99 99 Oxygen Delivery Method Room Air Room Air 05/29/24 13:23 05/29/24 14:00 Temperature 97.5 F L 97.5 F L Temperature Source Oral Oral Pulse Rate 100 94 Respiratory Rate 18 18 Blood Pressure 120/110 H 140/122 H Blood Pressure Mean 113 128 Pulse Ox 99 97 Oxygen Delivery Method Room Air Room Air MDM <WILLY Kidd - Last Filed: 05/29/24 15:58> MDM Lab Data Labs: Laboratory Results - last 24 hr 05/29/24 05/29/24 05/29/24 12:35 12:46 12:50 WBC 5.7 RBC 5.35 Hgb 15.8 H Hct 45.9 MCV 85.8 MCH 29.5 MCHC 34.4 RDW Std Deviation 39.9 RDW Coeff of Ramos 13.0 Plt Count 369 MPV 9.1 Immature Gran % (Auto) 1.200 H Neut % (Auto) 54.9 Lymph % (Auto) 35.2 [place] % (Auto) 6.6 Eos % (Auto) 0.9 Baso % (Auto) 1.2 H Absolute Neuts (auto) 3.2 Absolute Lymphs (auto) 2.02 Nucleated RBC % 0 Sodium 142 Potassium 3.7 Chloride 107 Carbon Dioxide 25.0 Anion Gap 10 BUN 13 Creatinine 0.96 Estim Creat Clear Calc 67.57 Est GFR (MDRD) Af Amer 78 Est GFR (MDRD) Non-Af 65 BUN/Creatinine Ratio 13.6 Glucose 132 H Lactic Acid 2.4 H* Calcium 10.2 H Total Bilirubin 0.50 AST 28 ALT 69 H Alkaline Phosphatase 113 Troponin I High Sens < 3 L Total Protein 7.9 Albumin 4.3 Globulin 3.6 Albumin/Globulin Ratio 1.2 Lipase 52 Urine Color Urine Clarity Urine pH Ur Specific [place] Urine Protein Urine Glucose (UA) Urine Ketones Urine Occult Blood Urine Nitrite Urine Bilirubin Urine Urobilinogen Ur Leukocyte Esterase Urine RBC Urine WBC Ur Squamous Epith Cells Urine Bacteria Urine Mucus 05/29/24 14:16 WBC RBC Hgb Hct MCV MCH MCHC RDW Std Deviation RDW Coeff of Ramos Plt Count MPV Immature Gran % (Auto) Neut % (Auto) Lymph % (Auto) [place] % (Auto) Eos % (Auto) Baso % (Auto) Absolute Neuts (auto) Absolute Lymphs (auto) Nucleated RBC % Sodium Potassium Chloride Carbon Dioxide Anion Gap BUN Creatinine Estim Creat Clear Calc Est GFR (MDRD) Af Amer Est GFR (MDRD) Non-Af BUN/Creatinine Ratio Glucose Lactic Acid Calcium Total Bilirubin AST ALT Alkaline Phosphatase Troponin I High Sens Total Protein Albumin Globulin Albumin/Globulin Ratio Lipase Urine Color Straw Urine Clarity Clear Urine pH 5.0 Ur Specific [place] 1.010 Urine Protein 30 H Urine Glucose (UA) Normal Urine Ketones 15 H Urine Occult Blood 10 H Urine Nitrite Negative Urine Bilirubin Negative Urine Urobilinogen Normal Ur Leukocyte Esterase Negative Urine RBC 5-10 SEEN Urine WBC 0 SEEN Ur Squamous Epith Cells 0 SEEN Urine Bacteria RARE Urine Mucus 0 SEEN Radiography Diagnostic Testing: Clinical Impression(s) from Imaging Studies Abdomen/Pelvis CT 05/29/24 12:38 IMPRESSION: Mild left hydronephrosis secondary to a 1 mm UVJ calculus. Mild colonic diverticulosis without acute diverticulitis. Tiny hiatal hernia. Hepatic steatosis. Electronically Signed: Kim Yates MD at 14:19 EST , EKG Sinus tachycardia: Attestation: I personally reviewed and interpreted this EKG as follows: Interpretation: Sinus Rhythm Comments: Sinus tachycardia, rate 110 bpm, RI 124 ms, QRS duration 82 ms, no acute ST elevation, no acute infarct noted. Treatment and Re-Evaluation :: Differential diagnosis includes however is not limited to: Bowel obstruction, ischemic colitis, colitis, diverticulitis, hernia Patient on my initial evaluation was tachypneic, grunting, yelling, difficulty answering questions. Was difficult to get a full abdominal exam completed. Patient will be treated initially with IV fluids, IV Zofran, IV morphine. Patient will receive a CT scan of the abdomen pelvis with IV contrast. On reevaluation, the patient received multiple doses of pain medicine including IV morphine x 2, IV Dilaudid, IV Ativan. Patient still screaming in pain. Patient really went over for a CT scan of the abdomen pelvis IV contrast. I did reevaluate the patient, the patient's vital signs remained stable. Constantly reminded the patient she needs to relax and take deep breaths. All radiologic examinations were read, reviewed by the emergency department attending. From these reads, a plan of care will be put in place. Patient on reevaluation was still complaining of pain however patient was much more controlled, patient's breathing was controlled.Patient CBC was unremarkable, patient's chemistries were unremarkable, lactic acid slightly elevated 2.4, troponin was negative. Urinalysis was negative for any infection. There was some red blood cells, [address] scan of the abdomen pelvis shows a mild left hydronephrosis secondary to a 1 mm UVJ calculus. Mild colonic diverticulosis without acute diverticulitis. Patient did respond well to the IV Toradol. On reevaluation, the patient was feeling much better. Pay states he went to the bathroom and saw a grain of sand in the toilet. At this time, at this time, patient feels comfortable. Patient will be discharged home. Patient replaced on Flomax, Percocet, Zofran as well as muscle relaxer. Patient will follow-up with her PCP. She instructed return for any worsening symptoms. All questions answered, stable for discharge. I have personally performed a face to face assessment of the patient and have reviewed the JESI Note. I performed a substantive portion of the visit including all aspects of the following. My correia findings include: History is 53-year-old female sudden onset of left abdominal pain radiating to her flank. History of ischemic colitis and patient is worried that she perforated her colon. Patient appears to be in excruciating amount of pain screaming and vomiting. She has not been having diarrhea. Exam is screaming vomiting writhing reports diffuse tenderness to palpation Medical Decison Making basic blood work obtained was rather unremarkable microscopic urinalysis shows 5-10 red cells no obvious infection. CT demonstrates a 1 mm UPJ stone. Patient received narcotics as well as Ativan we are able to get the CT performed. She continued to have pain and received Toradol and felt significant improvement with the Toradol. Will continue to work on her pain control observe her. Disposition will be made using shared decision making. <Dr. Tunde Bedolla, DO - Last Filed: 05/29/24 15:52> [facility] History & Record Review Discussion w/independent historian: Patient and Significant other Additional record(s) reviewed:: Prior ED visit and Prior labs Lab Data Attestation: I reviewed the patient's lab results. Labs: Laboratory Results - last 24 hr 05/29/24 05/29/24 05/29/24 12:35 12:46 12:50 WBC 5.7 RBC 5.35 Hgb 15.8 H Hct 45.9 MCV 85.8 MCH 29.5 MCHC 34.4 RDW Std Deviation 39.9 RDW Coeff of Ramos 13.0 Plt Count 369 MPV 9.1 Immature Gran % (Auto) 1.200 H Neut % (Auto) 54.9 Lymph % (Auto) 35.2 [place] % (Auto) 6.6 Eos % (Auto) 0.9 Baso % (Auto) 1.2 H Absolute Neuts (auto) 3.2 Absolute Lymphs (auto) 2.02 Nucleated RBC % 0 Sodium 142 Potassium 3.7 Chloride 107 Carbon Dioxide 25.0 Anion Gap 10 BUN 13 Creatinine 0.96 Estim Creat Clear Calc 67.57 Est GFR (MDRD) Af Amer 78 Est GFR (MDRD) Non-Af 65 BUN/Creatinine Ratio 13.6 Glucose 132 H Lactic Acid 2.4 H* Calcium 10.2 H Total Bilirubin 0.50 AST 28 ALT 69 H Alkaline Phosphatase 113 Troponin I High Sens < 3 L Total Protein 7.9 Albumin 4.3 Globulin 3.6 Albumin/Globulin Ratio 1.2 Lipase 52 Urine Color Urine Clarity Urine pH Ur Specific [place] Urine Protein Urine Glucose (UA) Urine Ketones Urine Occult Blood Urine Nitrite Urine Bilirubin Urine Urobilinogen Ur Leukocyte Esterase Urine RBC Urine WBC Ur Squamous Epith Cells Urine Bacteria Urine Mucus 05/29/24 14:16 WBC RBC Hgb Hct MCV MCH MCHC RDW Std Deviation RDW Coeff of Ramos Plt Count MPV Immature Gran % (Auto) Neut % (Auto) Lymph % (Auto) [place] % (Auto) Eos % (Auto) Baso % (Auto) Absolute Neuts (auto) Absolute Lymphs (auto) Nucleated RBC % Sodium Potassium Chloride Carbon Dioxide Anion Gap BUN Creatinine Estim Creat Clear Calc Est GFR (MDRD) Af Amer Est GFR (MDRD) Non-Af BUN/Creatinine Ratio Glucose Lactic Acid Calcium Total Bilirubin AST ALT Alkaline Phosphatase Troponin I High Sens Total Protein Albumin Globulin Albumin/Globulin Ratio Lipase Urine Color Straw Urine Clarity Clear Urine pH 5.0 Ur Specific [place] 1.010 Urine Protein 30 H Urine Glucose (UA) Normal Urine Ketones 15 H Urine Occult Blood 10 H Urine Nitrite Negative Urine Bilirubin Negative Urine Urobilinogen Normal Ur Leukocyte Esterase Negative Urine RBC 5-10 SEEN Urine WBC 0 SEEN Ur Squamous Epith Cells 0 SEEN Urine Bacteria RARE Urine Mucus 0 SEEN Radiography Diagnostic Testing: Clinical Impression(s) from Imaging Studies Abdomen/Pelvis CT 05/29/24 12:38 IMPRESSION: Mild left hydronephrosis secondary to a 1 mm UVJ calculus. Mild colonic diverticulosis without acute diverticulitis. Tiny hiatal hernia. Hepatic steatosis. Electronically Signed: Kim Yates MD at 14:19 EST , Treatment and Re-Evaluation :: Differential diagnosis includes however is not limited to: Bowel obstruction, ischemic colitis, colitis, diverticulitis, hernia Patient on my initial evaluation was tachypneic, grunting, yelling, difficulty answering questions. Was difficult to get a full abdominal exam completed. Patient will be treated initially with IV fluids, IV Zofran, IV morphine. Patient will receive a CT scan of the abdomen pelvis with IV contrast. On reevaluation, the patient received multiple doses of pain medicine including IV morphine x 2, IV Dilaudid, IV Ativan. Patient still screaming in pain. Patient really went over for a CT scan of the abdomen pelvis IV contrast. I did reevaluate the patient, the patient's vital signs remained stable. Constantly reminded the patient she needs to relax and take deep breaths. All radiologic examinations were read, reviewed by the emergency department attending. From these reads, a plan of care will be put in place. Patient on reevaluation was still complaining of pain however patient was much more controlled, patient's breathing was controlled.Patient CBC was unremarkable, patient's chemistries were unremarkable, lactic acid slightly elevated 2.4, troponin was negative. Urinalysis was negative for any infection. There was some red blood cells, [address] scan of the abdomen pelvis shows a mild left hydronephrosis secondary to a 1 mm UVJ calculus. Mild colonic diverticulosis without acute diverticulitis. Patient did respond well to the IV Toradol. I have personally performed a face to face assessment of the patient and have reviewed the JESI Note. I performed a substantive portion of the visit including all aspects of the following. My correia findings include: History is 53-year-old female sudden onset of left abdominal pain radiating to her flank. History of ischemic colitis and patient is worried that she perforated her colon. Patient appears to be in excruciating amount of pain screaming and vomiting. She has not been having diarrhea. Exam is screaming vomiting writhing reports diffuse tenderness to palpation Medical Decison Making basic blood work obtained was rather unremarkable microscopic urinalysis shows 5-10 red cells no obvious infection. CT demonstrates a 1 mm UPJ stone. Patient received narcotics as well as Ativan we are able to get the CT performed. She continued to have pain and received Toradol and felt significant improvement with the Toradol. Will continue to work on her pain control observe her. Disposition will be made using shared decision making. Discharge Plan Triage Chief Complaint: Abd Pain ED Midlevel Provider: Ted Cueto ED Provider: Tunde Bedolla Dx/Rx/DC Orders Clinical Impression: Kidney stone Instructions: ED Kidney Stone with Pain Prescriptions: New oxycodone-acetaminophen [Percocet] 5-325 mg tablet 1 tab PO Q8H PRN (Reason: pain) 3 Days Qty: 10 0RF cyclobenzaprine 10 mg tablet 10 mg PO TID PRN (Reason: Muscle Spasm) Qty: 10 0RF tamsulosin [Flomax] 0.4 mg capsule 0.4 mg PO DAILY Qty: 7 0RF ondansetron 4 mg tablet,disintegrating 4 mg PO Q8H PRN PRN (Reason: Nausea) Qty: 10 0RF No Action hyoscyamine sulfate 0.125 mg tablet,disintegrating 0.125 mg PO BID-QID PRN (Reason: abdominal pain) Qty: 120 3RF omeprazole 40 mg capsule,delayed release(DR/EC) 40 mg PO DAILY Qty: 90 3RF semaglutide (weight loss) 1.7 mg/0.75 mL pen injector 1.7 mg subcut Q7D midodrine 5 mg tablet 5 mg PO TID Qty: 90 2RF Rx Instructions: do not give last dose of day after 6PM or within 4 hrs of bedtime Primary Care Provider: Juan Carolina Referrals: Juan Carolina MD [Primary Care Provider] - Activity Restrictions/Additional Instructions: Maintain hydration. Return for any fevers, chills, uncontrolled pain. Print Language: Tajik Disposition Disposition: Home, Self Care
[2024-05-29] MEDS: 0.9% Normal Saline (1000mL) 1,000 ML 999 ML IV (12:44)
[2024-05-29 12:45] LABS: Absolute Lymphocyte Count 2.02 X10^3/uL (0.83-4.51); Absolute Neutrophil Count 3.2 X10^3/uL (2.0-7.7); Basophil# 0.07 X10^3/uL; Basophil% 1.2 % (0-1); Eosinophil# 0.05 X10^3/uL; Eosinophils% 0.9 % (0-5); Hematocrit 45.9 % (37-47); Hemoglobin 15.8 g/dL (12.0-15.0); Lymphocyte # 2.02 X10^3/ul (0.83-4.51); Lymphocyte % 35.2 % (19-41); Mean Corp Hgb Conc 34.4 g/dL (32-36); Mean Corpuscular Hgb 29.5 pg (27.0-32.0); Mean Corpuscular Volume 85.8 fL (81-99); Mean Platelet Vol. 9.1 fl (6.2-12.0); Monocyte# 0.38 X10^3/uL; Monocyte% 6.6 % (0-10); NRBC Flagged by Analyzer 0 % (0-5); Neutrophil # 3.15 X10^3/uL (2.7-7.7); Neutrophil % 54.9 % (47-70); Platelet Count 369 K/mm3 (150-450); RBC Distribution Width SD 39.9 fl (35.1-43.9); Red Blood Count 5.35 M/mm3 (4.2-5.4); White Blood Count 5.7 K/mm3 (4.4-11.0)
[2024-05-29] MEDS: Morphine 4 MG/ML Syringe IV (12:45)
[2024-05-29] MEDS: Ondansetron 4 MG/2 ML Vial IV ×2 (12:45→13:14)
[2024-05-29] MEDS: LORazepam 2 MG/ML Syringe 1 MG IV (12:54)
--- NOTE | 2024-05-29 13:06 | EKG12_ITS ---
Test Reason : ABD PAIN Blood Pressure : */* mmHG Vent. Rate : 110 BPM Atrial Rate : 110 BPM P-R Int : 124 ms QRS Dur : 82 ms QT Int : 350 ms P-R-T Axes : 38 59 -59 degrees QTcB Int : [address] & T wave abnormality, consider inferior ischemia ST & T wave abnormality, consider anterolateral ischemia Abnormal ECG Confirmed by HEIDY TIERNEY, CLARISSA ([id number]), production editor ISABEL LO ([id number]) on 05/31/2024 8:00:15 AM Referred By: Confirmed By: CLARISSA MOODY MD
[2024-05-29] MEDS: HYDROmorphone 1 MG/ML Syringe IV (13:08)
[2024-05-29 13:09] LABS: ALB/GLOB Ratio 1.2 RATIO (0.9-2.4); AST(SGOT) 28 U/L (15-37); Alanine Aminotransfer ALT/SGPT 69 U/L (13-56); Albumin, Serum 4.3 g/dL (3.2-5.0); Alkaline Phosphatase 113 U/L (45-117); Anion Gap 10 (5-15); BUN 13 mg/dL (7-18); BUN/Creat Ratio 13.6 RATIO (10-20); Calcium,Total 10.2 mg/dL (8.5-10.1); Chloride 107 mmol/L (98-107); Creatinine, Serum 0.96 mg/dL (0.55-1.02); EST Glomerular Filtration Rate 65 mL/min (>60); Est Glom Filt Rate - Afr Amer 78 mL/min (>60); Estimated Creatinine Clearance 67.57 ml/min; Globulin 3.6 g/dL (2.2-4.2); Glucose 132 mg/dL (74-106); Lipase 52 U/L (13-75); Potassium 3.7 mmol/L (3.5-5.1); Protein, Total 7.9 g/dL (6.4-8.2); Sodium Level 142 mmol/L (136-145)
[2024-05-29 13:23] VITALS: BP 120/110; PULSE 100; RESP 18; TEMP 36.4; O2SAT 99
[2024-05-29] MEDS: Ketorolac 15 MG/ML Vial IV (13:45)
[2024-05-29 13:50] LABS: Troponin-I HS < 3 pg/mL (3.0-54.0)
[2024-05-29 14:00] VITALS: BP 140/122; PULSE 94; RESP 18; TEMP 36.4; O2SAT 97
--- NOTE | 2024-05-29 14:00 | ED.RN ---
Patient ambulated to restroom with spouse. Monitor reapplied when arrived back to room. Patient reports much relief with pain medication and is requesting additional dosage. Patient instructed that she would need to wait due to recently receiving medication.
[2024-05-29 14:03] LABS: Lactic Acid 2.4 mmol/L (0.4-1.9)
[2024-05-29 14:23] LABS: Mucous, Urine 0 SEEN /hpf (<or=2+); Squamous Epithelial Cells - UA 0 SEEN /hpf (5-10); White Blood Cells 0 SEEN /hpf (0-5)
[2024-05-29 14:24] LABS: Color, Urine Straw (Yellow); Glucose, Dipstick Normal (Normal); Ketone-Dipstick 15 mg/dl (Negative); Leukocyte Esterase-Dipstick Negative /ul (Negative); Nitrite-Dipstick Negative (Negative); Occult Blood-Urine 10 /ul (Negative); Protein-Dipstick 30 mg/dl (Negative); Urine Bilirubin Dipstick Negative (Negative); Urine Clarity Clear (Clear); Urine Urobilinogen Normal (Normal)
[2024-05-29 14:32] LABS: Bacteria RARE /hpf (None Seen); Red Blood Cells-Urine 5-10 SEEN /hpf (0-5)
[2024-05-29 16:00] VITALS: RESP 18; O2SAT 95
[2024-05-29 16:01] VITALS: BP 140/122; PULSE 94; RESP 18; TEMP 36.4; O2SAT 95
[2024-05-29] MEDS: oxyCODONE 5 MG Tablet PO (16:17)
[2024-05-29 16:56] LABS: Reflex Lactate? Y
== END 2024-05-29 16:27 | disposition home or self-care (01) ==
PROVIDERS: Nurse Practitioner; Emergency Provider Emergency Medicine; PCP Internal Medicine; Visit Provider Emergency Medicine
DX: N13.2 Hydronephrosis with renal and ureteral calculous obstruction (principal); E78.00 Pure hypercholesterolemia, unspecified; Z90.710 Acquired absence of both cervix and uterus; Z87.891 Personal history of nicotine dependence; K21.9 Gastro-esophageal reflux disease without esophagitis; Z79.899 Other long term (current) drug therapy; Z90.49 Acquired absence of other specified parts of digestive tract
CPT/HCPCS: 74177; 80053; 81001; 83605; 83690; 84484; 85025; 93005; 96361; 96374; 96375; 99285; Q9967; A4216; J2405

== ENCOUNTER 2024-10-19 06:24 | Emergency (ER) | payer OTHER, SELFPAY ==
[2024-10-19 06:25] VITALS: BP 114/69; PULSE 105; RESP 32; TEMP 36.6; O2SAT 98; BMI 28.8
--- NOTE | 2024-10-19 06:52 | EX.ED.DYSGE1 ---
HPI History of Present Illness Chief Complaint: Chest Pain Informant: patient and spouse/S.O. Narrative Narrative: Patient is a 54-year-old female with past medical history of GERD and ischemic colitis as well as SVT. She states that has been multiple years since she has been in the abnormal heart rhythm. She states she has been under a great deal of stress recently and did not sleep well and this morning after getting up off the couch she felt her heart began to race. She states that she checked her pulse at home and she believes it was approximately 200 bpm. She states that this felt very similar nature to her past bouts of SVT. She states that there has been no recent sick symptoms and she denies any excessive stimulant use or illicit drug use. She states she has spontaneously converted out of SVT in the past and therefore waited roughly an hour to an hour and a half for symptoms to resolve. However there was no improvement and she had concern she may need cardioverted and therefore presents to the ER for evaluation [facility] Medical History Ischemic colitis Wears hearing aid Wears glasses Arthritis High cholesterol History of ulceration History of IBS Heartburn Gastric reflux Former smoker History of echocardiogram History of stress test Rheumatoid arthritis Acute hemorrhagic colitis GERD (gastroesophageal reflux disease) Reflux esophagitis Endometriosis Home Medications ?Medication ?Instructions ?Recorded ?Last Taken ?Type semaglutide (weight loss) 1.7 1.7 mg subcut Q7D 04/18/24 04/16/24 History mg/0.75 mL subcutaneous pen injector estradiol 2 mg tablet 2 mg PO QDAY 09/14/24 Unknown History hyoscyamine sulfate 0.125 mg 0.125 mg PO BID-QID PRN abdominal 09/14/24 Unknown Rx disintegrating tablet pain #120 tabs midodrine 5 mg tablet 10 mg (2 x 5 mg) PO TID #180 tabs 09/14/24 Unknown Rx omeprazole 40 mg capsule,delayed 40 mg PO DAILY #90 caps 09/14/24 Unknown Rx release progesterone micronized 100 mg 100 mg PO QAM 09/14/24 Unknown History capsule Allergy/AdvReac Type Severity Reaction Status Date / Time No Known Allergies Allergy Verified 09/14/24 10:31 Family History Father Heart disease Hypertension Hyperlipidemia Thyroid disorder Skin cancer Grandmother Breast cancer Mother Brain cancer Other Brain tumor Surgical History History of cardiac catheterization Hx of foot surgery H/O laparoscopy Hx of tonsillectomy History of appendectomy History of hysterectomy Social History Smoking Status: Former smoker ROS ROS ED Constitutional Constitutional ED: Denies chills or fever(s) Eyes Eyes: Denies change in vision ENT ENT ED: Denies sore throat Cardiovascular Cardiovascular: Reports chest pain, palpitations and racing heartbeat Respiratory/Chest Respiratory/Chest: Denies cough or dyspnea Gastrointestinal Gastrointestinal: Denies abdominal pain, diarrhea, nausea or vomiting Genitourinary Genitourinary ED: Denies dysuria Musculoskeletal Musculoskeletal: Denies back pain Integumentary Denies rash Neurologic Neurologic: Denies headache(s) Hematologic/Lymphatic Hematologic/Lymphatic: Denies easy bleeding or easy bruising EXAM Physical Exam Const Vital Signs: 10/19/24 06:25 10/19/24 06:30 Temperature 97.8 F Temperature Source Oral Pulse Rate 105 H Respiratory Rate 32 H Respiratory Effort Short of Breath Blood Pressure 114/69 Blood Pressure Mean 84 Pulse Ox 98 Oxygen Delivery Method Room Air Positive well nourished and well developed General Appearance ED: well developed; Negative for pallor HEENT HEENT Narrative: Mucous membranes are slightly dry and tacky No findings of infection noted in the posterior pharynx Eyes PERRL and EOMs intact bilaterally General Eye ED: Negative for pale conjunctiva or scleral icterus Neck supple and no JVD Neck Narrative: No nuchal rigidity or meningeal signs Chest Wall palpation of chest normal Resp normal respiratory effort and clear to auscultation bilaterally Resp Narrative: Breath sounds are slightly diminished throughout but overall clear to auscultation without signs of respiratory distress Cardio regular rate and regular rhythm Rate: other Other Details: Heart is regular rate and rhythm without murmurs rubs or gallops Radial and carotid pulses are equal and symmetric GI normal to inspection, nondistended, normoactive bowel sounds, non-tender, non-distended and no masses GI Narrative: No voluntary guarding or rigidity or pulsatile mass Auscultation: normoactive bowel sounds Palpation: soft Extremity normal to inspection Extremity Narrative: No asymmetric edema no pitting edema negative Homans' sign bilaterally Neuro oriented x3, CN's II-XII intact bilaterally and no sensory deficits noted Sensorium / Orientation: alert Motor Exam: strength 5/5 throughout Psych mental status grossly normal Skin no rashes or lesions noted General Skin Exam: Negative for jaundice or pallor MDM MDM MDM Narrative Medical decision making narrative: Patient arrived to the ER she is slightly tachycardic at approximately 105 bpm. With her past history of SVT and her reported heart rate of 200 bpm at home there is concern for paroxysmal SVT. An EKG was obtained which revealed technically sinus tachycardia at a rate of 102 but no true cardiac dysrhythmia or OH findings. The patient has a known history of SVT and has been under stress recently which could have precipitated an event. She denied any recent sick symptoms or bouts of nausea vomiting or diarrhea to suggest electrolyte abnormality or dehydration. I discussed with patient the safest option is to check for potential reversible cause of her palpitations and keep her on the rn cardiac to assess for abnormal heart rhythm. She states that she would like laboratory studies checked but as this is a recurrent issue for her and she has not had any events which should indicate low blood volume or severe dehydration she does not want to wait in the ER for the labs to result. Therefore this time the patient is hemodynamically stable she is not in SVT there is no signs of neurologic deficit and she denies any chest discomfort therefore I will order laboratory studies to check for potential reversible causes but with patient requesting discharge I will comply especially as her vitals are stable and there is no acute cardiac dysrhythmia History & Record Review Discussion w/independent historian: Patient and Significant other Discharge Plan Triage Chief Complaint: Chest Pain ED Provider: Prosper Rodriguez Dx/Rx/DC Orders Clinical Impression: Palpitations, GERD (gastroesophageal reflux disease), History of supraventricular tachycardia, History of ischemic colitis Instructions: Supraventricular Tachycardia, ED Palpitations Prescriptions: No Action progesterone micronized 100 mg capsule 100 mg PO QAM Rx Instructions: off 7 days; repeat cycle estradiol 2 mg tablet 2 mg PO QDAY omeprazole 40 mg capsule,delayed release(DR/EC) 40 mg PO DAILY Qty: 90 3RF hyoscyamine sulfate 0.125 mg tablet,disintegrating 0.125 mg PO BID-QID PRN (Reason: abdominal pain) Qty: 120 3RF semaglutide (weight loss) 1.7 mg/0.75 mL pen injector 1.7 mg subcut Q7D midodrine 5 mg tablet 10 mg PO TID Qty: 180 0RF Patient Comments: hasn't taken the last few days Rx Instructions: do not give last dose of day after 6PM or within 4 hrs of bedtime Primary Care Provider: Juan Carolina Referrals: Juan Carolina MD [Primary Care Provider] - Activity Restrictions/Additional Instructions: Your history is consistent with a bout of supraventricular tachycardia which has spontaneously resolved upon your arrival to the ER. Continue all of your home medications as directed by your doctor and return to the ER should you have any further concerns or worsening of symptoms Print Language: Guyanese Disposition Disposition: Home, Self Care Discharge Date/Time: 10/19/24 07:04
[2024-10-19 07:01] LABS: Absolute Lymphocyte Count 3.29 X10^3/uL (0.83-4.51); Absolute Neutrophil Count 2.9 X10^3/uL (2.0-7.7); Basophil# 0.09 X10^3/uL; Basophil% 1.3 % (0-1); Eosinophil# 0.11 X10^3/uL; Eosinophils% 1.6 % (0-5); Hematocrit 42.6 % (37-47); Hemoglobin 14.6 g/dL (12.0-15.0); Lymphocyte # 3.29 X10^3/ul (0.83-4.51); Lymphocyte % 46.8 % (19-41); Mean Corp Hgb Conc 34.3 g/dL (32-36); Mean Corpuscular Hgb 29.1 pg (27.0-32.0); Mean Platelet Vol. 10.4 fl (6.2-12.0); Monocyte# 0.64 X10^3/uL; Monocyte% 9.1 % (0-10); NRBC Flagged by Analyzer 0 % (0-5); Neutrophil # 2.88 X10^3/uL (2.7-7.7); Neutrophil % 40.9 % (47-70); Platelet Count 373 K/mm3 (150-450); RBC Distribution Width CV 13.2 % (11.6-14.6); RBC Distribution Width SD 40.4 fl (35.1-43.9); Red Blood Count 5.01 M/mm3 (4.2-5.4)
[2024-10-19 07:04] VITALS: BP 108/83; PULSE 88; RESP 16; TEMP 36.6; O2SAT 100
[2024-10-19 07:34] LABS: Magnesium 2.3 mg/dL (1.5-2.2)
[2024-10-19 07:52] LABS: Anion Gap 15 (5-15); BUN 12 mg/dL (4-19); BUN/Creat Ratio 12.5 RATIO (10-20); Calcium,Total 9.6 mg/dL (7.6-11.0); Carbon Dioxide 20.1 mmol/L (21.0-32.0); Chloride 105 mmol/L (98-108); Creatinine, Serum 0.95 mg/dL (0.70-1.20); EST Glomerular Filtration Rate 71 (>60); Estimated Creatinine Clearance 65.15 ml/min (50-250); Glucose 110 mg/dL (70-99); Sodium Level 140 mmol/L (133-145); Troponin T High Sensitivity < 6 ng/L (<=14)
--- NOTE | 2024-10-19 08:23 | EKG12_ITS ---
Test Reason : SVT Blood Pressure : */* mmHG Vent. Rate : 102 BPM Atrial Rate : 102 BPM P-R Int : 140 ms QRS Dur : 70 ms QT Int : 330 ms P-R-T Axes : 29 74 74 degrees QTcB Int : 430 ms Sinus tachycardia Nonspecific ST abnormality Abnormal ECG Confirmed by HEIDY TIERNEY, CLARISSA ([id number]), commercial production editor ISABEL LO ([id number]) on 10/20/2024 1:24:28 PM Referred By: Confirmed By: CLARISSA MOODY MD
== END 2024-10-19 07:04 | disposition home or self-care (01) ==
LOC: ED 06:54
PROVIDERS: Emergency Provider Emergency Medicine; PCP Internal Medicine; Visit Provider Emergency Medicine
DX: R07.9 Chest pain, unspecified (principal); K21.9 Gastro-esophageal reflux disease without esophagitis; R00.2 Palpitations; E78.00 Pure hypercholesterolemia, unspecified; Z87.891 Personal history of nicotine dependence; Z87.19 Personal history of other diseases of the digestive system; Z79.899 Other long term (current) drug therapy; Z90.49 Acquired absence of other specified parts of digestive tract; Z90.710 Acquired absence of both cervix and uterus; Z86.79 Personal history of other diseases of the circulatory system
CPT/HCPCS: 80048; 83735; 84443; 84484; 85025; 93005; 99282; A4216

== ENCOUNTER → 2025-01-12 | Outpatient (CLI) | payer OTHER, SELFPAY ==
--- NOTE | 2025-01-12 06:49 | ECHOD_ITS ---
Reason For Study Reason For Study: Chest pain Procedure This was a 2D Doppler, Color Flow transthoracic echocardiogram. Exam performed in department. Left Ventricle The left ventricle is normal in size, thickness, and systolic function. The LV ejection fraction is 65 %. Right Ventricle Normal right ventricle. Atria The left and right atria are normal. Mitral Valve Trivial mitral valve insufficiency. Tricuspid Valve Trivial tricuspid valve insufficiency. Unable to estimate RV systolic pressure due to insufficient tricuspid regurgitant envelope. Aortic Valve Trisinus/trileaflet aortic valve. Trivial aortic valve insufficiency. Pulmonic Valve The pulmonic valve is not well visualized. Trivial pulmonic valve insufficiency. Great Vessels Normal sized aortic root. Pericardium/Pleural No pericardial effusion. MMode/2D Measurements & Calculations LVIDd: 3.7 cm IVSd: 0.90 cm Ao root diam: 2.9 cm LVIDs: 1.9 cm LVPWd: 0.92 cm FS: 47.5 % LAV(MOD-bp): 22.0 ml LVAd ap4: 16.4 cm2 LVAd ap2: 16.8 cm2 LAV(MOD-bp) Indexed: 12.2 ml/m2 LVLd ap4: 6.3 cm LVLd ap2: 7.0 cm LAV(MOD-sp2): 19.7 ml EDV(MOD-sp4): 36.0 ml EDV(MOD-sp2): 35.9 ml LAV(MOD-sp4): 23.5 ml EDV(sp4-el): 36.2 ml EDV(sp2-el): 34.4 ml LVAs ap4: 9.7 cm2 LVAs ap2: 8.7 cm2 LVLs ap4: 6.0 cm LVLs ap2: 6.0 cm ESV(MOD-sp4): 13.6 ml ESV(MOD-sp2): 11.3 ml ESV(sp4-el): 13.5 ml ESV(sp2-el): 10.7 ml EF(MOD-sp4): 62.2 % EF(MOD-sp2): 68.5 % EF(sp4-el): 62.8 % SV(MOD-sp4): 22.4 ml SV(MOD-sp2): 24.6 ml SV(sp4-el): 22.8 ml SI(MOD-sp4): 12.5 ml/m2 SI(MOD-sp2): 13.7 ml/m2 LA A4 area: 11.0 cm2 LA dimension(2D): 3.6 cm RA A4 area: 9.3 cm2 TAPSE: 1.8 cm Doppler Measurements & Calculations MV E max don: 72.7 cm/sec Lat Peak E' Don: 11.3 cm/sec Med Peak E' Don: 8.8 cm/sec MV A max don: 58.7 cm/sec E/E' lat: 6.4 E/E' med: 8.2 MV E/A: 1.2 Ao V2 max: 89.9 cm/sec LV V1 max: 82.6 cm/sec PA V2 max: 71.8 cm/sec Ao max P.2 mmHg LV V1 max P.7 mmHg ECHO/Echo Complete Interpretation Summary The LV ejection fraction is 65 %. Ordering Physician: Nasrin Sanderson Referring Physician: Juan Carolina M.D. Performed By: Yesenia Munoz RDCS and Student
--- OUTSIDE RECORDS SUMMARY | 2025-01-12 06:50 | XMS RPT_ITS | CCD ---
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 Onset: 4 Episodic Other circulatory disease (2 sources) History of cardiac arrhythmia; Translations: [Personal history of other diseases of the circulatory system] 10-19-2024 Episodic Other circulatory disease (7 sources) History of paroxysmal supraventricular tachycardia; Translations: [Personal history of other diseases of the circulatory system] Onset: 5 10-21-2024 Episodic Other circulatory disease (7 sources) Chronic hypotension; Translations: [Other hypotension] Onset: 5 10-20-2024 Episodic Other congenital anomalies (10 sources) Spina bifida occulta; Translations: [Spina bifida occulta] 12-29-2014 Chronic Other eye disorders (1 source) Optic disc cup finding; 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, bilateral] 10-19-2024 Chronic Other eye disorders (1 source) Other disorders of optic disc, bilateral; 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] Onset: 5 Chronic Other female genital disorders (1 source) Vaginal odor; Translations: [Other specified noninflammatory disorders of vagina] 07-21-2024 Episodic Other fractures (5 sources) Fracture of coccyx; Translations: [Fracture of coccyx, initial encounter for closed fracture] 07-06-2017 Episodic Other gastrointestinal disorders (1 source) Other constipation; Translations: [Constipation, unspecified] Episodic Other gastrointestinal disorders (2 sources) Heartburn; Translations: [Heartburn] 05-05-2024 Episodic Comment on above: On Omeprazole Other gastrointestinal disorders (2 sources) Diarrhea; Translations: [Diarrhea, unspecified] 05-05-2024 Episodic Other gastrointestinal disorders (2 sources) History of ischemic colitis; Translations: [Personal history of other diseases of the digestive system] 10-19-2024 Episodic Other injuries and conditions due to external causes (5 sources) Injury of finger; Translations: [Unspecified injury of unspecified wrist, hand and finger(s), initial encounter] 08-01-2015 Episodic Other nervous system disorders (20 sources) Neuropathy; Translations: [Polyneuropathy, unspecified] 04-17-2022 Chronic Other nervous system disorders (19 sources) Peripheral sensory neuropathy; 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] Onset: 3 06-18-2023 Chronic Other nervous system disorders (12 sources) Head movements abnormal; Translations: [Abnormal head movements] Onset: 5 10-21-2024 Episodic Other nervous system disorders (1 source) Abnormal head movements; Translations: [Abnormal head movements] Onset: 5 Episodic Other nutritional; endocrine; and metabolic disorders (10 sources) Morbid obesity; Translations: [Morbid (severe) obesity due to excess calories] 04-17-2022 Chronic Other nutritional; endocrine; and metabolic disorders (10 sources) Obese class I; Translations: [Obesity, unspecified] Onset: 3 06-18-2023 Chronic Other nutritional; endocrine; and metabolic disorders (13 sources) Obesity; Translations: [Obesity, unspecified] Onset: 3 09-02-2023 Chronic Other skin disorders (10 sources) Loss of hair; Translations: [Nonscarring hair loss, unspecified] 04-17-2022 Episodic Other skin disorders (5 sources) Localized superficial swelling, mass, or lump 04-27-2013 Episodic Other upper respiratory infections (15 sources) Sinusitis; Translations: [Chronic sinusitis, unspecified] 04-07-2018 Chronic Other upper respiratory infections (10 sources) Acute sinusitis, unspecified 05-12-2012 Episodic Peripheral and visceral atherosclerosis (20 sources) Ischemic colitis; Translations: [Vascular disorder of intestine, unspecified] Onset: Chronic Residual codes; unclassified (10 sources) Body mass index 20-24 - normal; Translations: [Body mass index (BMI) 24.0-24.9, adult] 04-17-2022 Episodic Residual codes; unclassified (10 sources) Influenza vaccination declined; Translations: [Immunization not carried out because of patient refusal] 04-17-2022 Episodic Residual codes; unclassified (10 sources) Insomnia; Translations: [Insomnia, unspecified] 04-17-2022 Episodic Residual codes; unclassified (10 sources) Menopause present; Translations: [Asymptomatic menopausal state] 04-17-2022 Episodic Residual codes; unclassified (1 source) Difficulty sleeping ; Translations: [Sleep deprivation] 10-07-2023 Episodic Residual codes; unclassified (2 sources) Past history of procedure; Translations: [Personal history of other medical treatment] 11-22-2024 Episodic Screening and history of mental health and substance abuse codes (20 sources) Patient encounter status; Translations: [Encounter for therapeutic drug level monitoring] 04-17-2022 Episodic Screening and history of mental health and substance abuse codes (1 source) Ex-smoker; Translations: [Personal history of nicotine dependence] 11-22-2024 Episodic Spondylosis; intervertebral disc disorders; other back problems (10 sources) Low back pain; Translations: [Lumbago] 04-17-2022 Episodic Unclassified (1 source) Per patient, patient passing blood in her bowel movements since 5am today. Onset: 3 Unclassified (5 sources) Number of Children 01-27-2022 Comment on above: 1. Unclassified (5 sources) Number of Pregnancies 01-27-2022 Comment on above: 1. Unclassified (5 sources) Vaginal deliveries 01-27-2022 Comment on above: 1. Unclassified (2 sources) [ADDITIONAL REASON] Follow Up for Multiple Chronic Conditions - The patient is here for follow-up of anxiety, insomnia and other condition(s) (ADD). The patient always takes the prescribed medications. No side effects noted (needs refills). The patient has an active lifestyle but no regular exercise program. The patient's out of office blood pressure checks occur rarely and dietary compliance is fairly good usually adhering to recommendations. The patient states that weight has increased (up 11 pounds) and headaches have been noticed occasionally. Note for Multiple chronic conditions follow-up": Complains of numbness in hands and feet at night. reviewed by [facility] 07-03-2020 Unclassified (5 sources) Well Adult, female - The patient feels well with minor complaints, has decreased energy level and is sleeping well. The first day of the last menstrual period was : (07-07-15). The patient is not using any method of contraception at this time. The patient has a balanced diet and takes no supplemental vitamins & iron. The patient exercises none (active lifestyle.). The patient sleeps 5 hours per night. Note for "Well Adult, female": Pt goes to [facility] and mammograms.She has several concerns :1) she injured her right ring finger 1 month ago and has persistent pain2) She is concerned she does notnheal as quickly and has been noticing more bruising3) She has gained weight, She was concerned it was from paxil so she weaned off it ( has been off for 4 weeks ) 08-01-2015 Unclassified (5 sources) Follow up for chronic condition - The patient is here for follow-up of depression (anxiety). The patient always takes the prescribed medications. No side effects noted. The patient has an active lifestyle but no regular exercise program. The patient's out of office blood pressure checks occur occasionally. The patient states that mood is unchanged (Is doing well). The patient states that the disease has no overall impact. Note for "Chronic condition follow-up": Doing well w meds w no c/o SE.She has a lot of stress right now regarding a situation with her son. Anxiety has increased. She has problems w memory, concentration. She is in counselling. 12-29-2014 Unclassified (4 sources) Follow up consultation - The patient is here to follow-up after Emergency Room/Urgent Care on : (08/28/12 for acute on low back pain. Has history of back problems. Was born with spinal bifida occulta and would like to discuss back issues. today. Was given Percocet and Flexeril but unable to take Percocet because it wipes her out and she cannot function and does not settle well with stomach and Flexeril does not help at all.). Note for Consultation follow-up": She had an eval by [facility] and MRI was done which showed nerve entrapment but no surgical options. 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 The patient always takes the prescribed medications. No side effects noted. The patient engages in regular exercise program 3-5 times per week. Note for Multiple chronic conditions follow-up": Pt states that Adderall is working well as long as she does not miss a day. Was trying out at times to just take 1/2 pill a day but found that she does noeed the whole pill daily. Focusing and seems more alert and day today living is going pretty well. reviewed by [facility] 10-22-2012 Unclassified (3 sources) Follow Up for Multiple Chronic Conditions - The patient is here for follow-up of anxiety, insomnia and other condition(s) (ADD). The patient always takes the prescribed medications. No side effects noted (needs refills). The patient has an active lifestyle but no regular exercise program. The patient's out of office blood pressure checks occur rarely and dietary compliance is fairly good usually adhering to recommendations. The patient states that weight has increased (up 11 pounds) and headaches have been noticed occasionally. Note for Multiple chronic conditions follow-up": Complains of numbness in hands and feet at night. reviewed by [facility] 07-03-2020 Unclassified (1 source) Follow Up for Multiple Chronic Conditions - The patient is here for follow-up of other condition(s) (ADD). The patient always takes the prescribed medications. No side effects noted. The patient engages in regular exercise program 3-5 times per week. Note for Multiple chronic conditions follow-up": Pt states that Adderall is working well as long as she does not miss a day. Was trying out at times to just take 1/2 pill a day but found that she does noeed the whole pill daily. Focusing and seems more alert and day today living is going pretty well. reviewed by [facility] 10-22-2012 Unclassified (1 source) [ADDITIONAL REASON] Follow up consultation - The patient is here to follow-up after Emergency Room/Urgent Care on : (08/28/12 for acute on low back pain. Has history of back problems. Was born with spinal bifida occulta and would like to discuss back issues. today. Was given Percocet and Flexeril but unable to take Percocet because it wipes her out and she cannot function and does not settle well with stomach and Flexeril does not help at all.). Note for Consultation follow-up": She had an eval by [facility] and MRI was done which showed nerve entrapment but no surgical options. 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 " 10-22-2012 Unclassified (1 source) I47.10 - Supraventricular tachycardia, unspecified Unclassified (2 sources) Supraventricular tachycardia, unspecified; Translations: [Supraventricular tachycardia, unspecified] Onset: 5 Urinary tract infections (10 sources) Urinary tract infectious disease; Translations: [Urinary tract infection, site not specified] 07-03-2020 Episodic Urinary tract infections (5 sources) Urinary tract infections 07-03-2020 Past or Other Problems Problem Classification Problem Date Documented Da te Episodic/Chronic Abdominal pain (12 sources) Abdominal pain; Translations: [Unspecified abdominal pain] Onset: 3 Resolved: 3 06-18-2023 Episodic Deficiency and other anemia (1 source) Anemia, unspecified; Translations: [Anemia, unspecified] Onset: 4 Episodic Diabetes mellitus without complication (15 sources) Impaired fasting glycemia; Translations: [Impaired fasting glucose] Onset: 4 09-03-2023 Episodic Gastritis and duodenitis (18 sources) Gastritis; Translations: [Gastritis, unspecified, without bleeding] Onset: 9 Resolved: 3 06-18-2023 Episodic Gastrointestinal hemorrhage (20 sources) Gastrointestinal hemorrhage; Translations: [Gastrointestinal hemorrhage, unspecified] Onset: 9 Resolved: 9 04-17-2022 Episodic Genitourinary symptoms and ill-defined conditions (14 sources) Increased frequency of urination; Translations: [Frequency of micturition] Onset: 9 Resolved: 3 07-09-2020 Episodic Menstrual disorders (14 sources) Menorrhagia; Translations: [Excessive and frequent menstruation with regular cycle] Onset: 7 Resolved: 3 10-17-2016 Chronic Noninfectious gastroenteritis (20 sources) Hemorrhagic colitis; Translations: [Noninfective gastroenteritis and colitis, unspecified] Onset: 4 Resolved: 3 Episodic Other and unspecified benign neoplasm (20 sources) Lipoma (clinical); Translations: [Benign lipomatous neoplasm, unspecified] Onset: 3 Resolved: 4 04-17-2022 Episodic Other and unspecified benign neoplasm (18 sources) Tubular adenoma of colon; Translations: [Benign neoplasm of colon, unspecified] Onset: 3 06-18-2023 Episodic Other and unspecified benign neoplasm (9 sources) Fibroadenoma of breast; Translations: [Benign neoplasm of unspecified breast] Onset: 2 Resolved: 3 06-18-2023 Episodic Other diseases of kidney and ureters (1 source) Hydronephrosis with renal and ureteral calculous obstruction; Translations: [Hydronephrosis with renal and ureteral calculous obstruction] Onset: 5 Episodic Other female genital disorders (9 sources) Female genital organ symptoms; Translations: [Unspecified condition associated with female genital organs and menstrual cycle] Onset: 7 Resolved: 3 06-18-2023 Episodic Other gastrointestinal disorders (20 sources) Chronic constipation; Translations: [Other constipation] Onset: 3 06-19-2023 Episodic Other screening for suspected conditions (not mental disorders or infectious disease) (20 sources) Screening for lipoid disorders; Translations: [Other screening mammogram] Onset: 2 Resolved: 3 12-25-2010 Episodic Unclassified (5 sources) discuss injection - Pt is here to discuss injection for cholesterol and wt loss. Pt has had a 50lb wt gain in over the past 4-5 years. She is interested in Mounjero for off label use . She is not diabetic but thought it may help her lose weight and help w cholesterol 04-17-2022 Unclassified (5 sources) Well Adult, female - The patient feels well with minor complaints (is concerned about weight gain since hysterectomy and multiple areas of joint pain. Mostly lower extremities.), has decreased energy level and is sleeping poorly. The patient has a balanced diet. The patient does not exercise. The patient sleeps 5 hours per night. Note for "Well Adult, female": reviewed by [facility] 01-27-2022 Unclassified (5 sources) Transition into care - The patient is transitioning into care from an emergency room and a summary of care was reviewed. 01-02-2022 Unclassified (2 sources) [ADDITIONAL REASON] Follow up consultation - The patient is here to follow-up after hospitalization ([facility]) on : (12/26/2021 - 12/27/2021). Current symptoms include nausea (diarrhea, acid reflux). Note for Consultation follow-up": pt is currently taking ciprofloxacin and metronidazole and oxycodonept will see a specialist the end of januarypt really just wants something for her heartburn until see sees the specialistshe is worried about her thyroid as well-- has weight gain, dry skin, hair loss reviewed by B 01-02-2022 Unclassified (5 sources) Well Adult, female - The patient feels well with no complaints, has decreased energy level and is sleeping poorly. The first day of the last menstrual period was : (2017 goes to [facility]). The patient has a balanced diet and takes supplemental vitamins. The patient does not exercise. The patient sleeps 4 hours per night. Note for "Well Adult, female": reviewed by [facility] 08-06-2020 Unclassified (5 sources) Anxiety - The onset of the anxiety has been variable and has been occurring in a persistent pattern for years. The course has been recurrent. The anxiety is characterized as apprehension and nervousness. Precipitating factors include specific circumstances (dog this past weekend.). The symptoms have been associated with agitation, feeling of sadness, headache (occasionally), insomnia, nausea and palpitations (rapid heart rate on occasion.), but have not been associated with breathlessness or dizziness. Note for "Anxiety": She has been treated in the past , most recently w fluoxetine in 2016. she tried a friends vistaril which worked well. 08-10-2019 Unclassified (5 sources) ADHD Medication Check - Adult - The last clinic visit was 6 month(s) ago (04/07/2018). Management changes made at the last visit include none (pt is on adderall 15mg). Symptoms include short attention span, easy distractibility and forgetfulness. Symptoms are relieved by stimulant medication. Associated symptoms include sleep disturbance. By report there is good compliance with treatment, good tolerance of treatment and good symptom control. Note for ADHD medication check": She c/o of some selma , also getting some headaches , especially w coughing . This has lara going on for 2 months. Mother and MGM both had brain cancer. 10-18-2018 Unclassified (5 sources) Rash - The onset of the rash has been acute and has been occurring in a persistent pattern for hours. The course has been constant. The rash is characterized as red. The rash was first seen on the trunk, the back, the upper extremity and the lower extremity. There has been associated itching. Note for "Rash": Finished Cephalexin 3 days ago. Started with rash this morning. Took 4(two in morning and two at night) Benadryl yesterday to help with sleep. reviewed by B 04-20-2018 Unclassified (4 sources) Cold Symptoms - Symptoms include nasal congestion, ear pain, headache and facial pain, but do not include sneezing, runny nose, ear fullness, sore throat, scratchy throat, productive cough, fever, chills or general malaise. The onset was sudden 10 day(s) ago. The symptoms occur constantly. The patient describes this as moderate in severity and unchanged. Note for Upper respiratory infection": reviewed by [facility] 04-07-2018 Unclassified (4 sources) [ADDITIONAL REASON] ADHD Medication Check (13-19 years) - The last clinic visit was 7 month(s) ago (08/2017). Note for ADHD medication check": Currently on Adderall 15mg daily. Is doing well on medication. Needs refill. Is also complain of insomnia for the past 6 months. Averaging 3 hours a night. reviewed by [facility] 04-07-2018 Unclassified (5 sources) ADHD Medication Check (13-19 years) - The history is obtained from the patient. The last clinic visit was 11 month(s) ago (09/2016). Note for ADHD medication check": Is currently on Adderall 15mg daily. Is doing well on medication. Does not need a refill. reviewed by [facility] 09-08-2017 Unclassified (5 sources) Back pain - The onset of the back pain has been acute and has been occurring in a persistent pattern for 2 days. The course has been increasing. The pain is characterized as a dull ache (type of pain depends on movement), stabbing and piercing. The pain is located in the lower back and radiates to the lateral aspect of right leg (yesterday), right groin and lower abdomen. There are no precipitating factors. The symptoms are aggravated by prolonged sitting and have no relieving factors. The pain has been associated with back stiffness. Note for "Back pain": patient fell thursday while doing at home chores. fell on back reviewed by [facility] 07-06-2017 Unclassified (3 sources) [ADDITIONAL REASON] Follow up consultation - The patient is here to follow-up after Emergency Room/Urgent Care on : (10/16/2016). Current symptoms include abdominal pain (left side ). Note for Consultation follow-up": the tractor she was operating stopped abrubtly and she klaudia her abd on the steering wheel, 2 hours later her period started which was 2 weeks early, no premenstrual symptoms leading up to that. Menses is very heavy right now.CT of abdomen was done in ER-ER gave #3 percocet reviewed by [facility] 10-17-2016 Unclassified (5 sources) Cold Symptoms - Symptoms include nasal congestion, runny nose, ear fullness, sore throat (started with a sore throat), hoarseness, dry cough (last night she started with chest pressure/tightness. Had a hard time breathing last night. Shortness of breath. The pressure of her chest is constant. ), fever (low grade fever started this morning, sweating), general malaise (has dizziness), headache and facial pain, but do not include ear pain, productive cough, wheezing or chills. The onset was sudden 1 week(s) ago (started out as a sore throat moved into her head and now is currently in her chest). The symptoms occur constantly. The patient describes this as moderate in severity and worsening. Current treatment includes an oral decongestant (Sudafed), NSAIDs and Benadryl. Risk factors do not include smoking (former smoker). The patient has been exposed to an individual with an upper respiratory infection (coworkers have been sick for about 1 month). Medical history includes tonsillectomy, but patient denies history of seasonal allergies, recurrent sinusitis, asthma or recurrent ear infections. Note for "Upper respiratory infection": Reports that her resting heartrate has been higher than normal. Mid 80's to high 90's. unable to sleep d/t sinus pressure and cough. 07-25-2016 Unclassified (5 sources) Cold Symptoms - Symptoms include runny nose, non-purulent sputum (but also yellowish in color at times.), ear pain (left ear discomfort and also left jaw. ALso has some discomfort in left side of chest at times.), productive cough (and expectorating white to yellowish sputum. Cough sounds very deep in the mornings. Has lots of drainage down throat.), general malaise, headache and facial pain (mainly on left side.), but do not include wheezing (PO 98%) or fever. The onset was gradual. The patient describes this as moderate in severity and unchanged. Current treatment includes non-prescription cold medication (and used some of husbands cough med last night- Promethazine with codeine.). Risk factors include smoking. The patient has been exposed to an individual with an upper respiratory infection ( just seen and diagnosed with early pneumonia.). Note for Upper respiratory infection": Symtoms started about 2 1/2 weeks ago. reviewed by [facility] 04-16-2015 Unclassified (5 sources) Attention Deficit Disorder - Attention Deficit Disorder. Is currently on Adderall 15mg daily. Is doing well on current dosage. No side effects noted. Occassional problems falling asleep. 08-25-2014 Unclassified (5 sources) Abdominal pain - The onset of the abdominal pain has been gradual and has been occurring in an intermittent pattern for 1 week. The course has been increasing. The pain is described as a moderate sharp pain. The pain is located in the left lower quadrant and radiates to the back. The symptoms have no aggravating factors but have no relieving factors. The symptoms have been associated with bloody stools (with a lot of mucus), constipation, diarrhea (watery), nausea and vomiting, while the symptoms have not been associated with dysuria, fever or heartburn. Note for "Abdominal pain": Patient reports she had a pretty bad episode last night. Pain was the worst it has ever been. Patient complained of excessive sweating. Patient's last colonoscopy was in 2003 from what records show. 12-16-2013 Unclassified (5 sources) Hemmorhoids - Pt has had rectal pain that started 5 days ago. Says she had a "rough BM" that same day. Usually her BMs are pasty like play dough consistency but the one on Thursday wasn't. Usually has a BM daily but doesn't feel she empties her bowels completely. Had bright red blood on Thursday when she wiped after her BM. Noticed yesterday after her BM that there was a bump in rectal area that was tender. It got to be the size of a laquita's egg yesterday. She took advil last night and has been doing hot baths/soaking, using preparation H, and witch erica (which she thinks may have made it worse). This morning it was much smaller in size but she was concerned that it is getting bigger as the day goes on. Tender. Has not had anything similar in the past. Last BM was yesterday morning - it was normal with no bleeding or significant pain. Also mentions that she has lumps on her legs - has had for about 4-5 years. Sometimes tender if pushes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 UTERUS 250G OR LESS 12/18/2016 LAPAROSCOPIC APPENDECTOMY 03/21/2003 retained appendiceal stump, previous appendectomy LAPS ABD PRTMANDOMENTUM DX W/WO SPEC BR/WA SPX 1992 Laparoscopy LEFT HEART CATH,PERCUTANEOUS 03/23/2013 [facility] Normal coronaries. PAST SURGICAL HISTORY OF 10/28/2011 removal of lump on left breast SIGMOIDOSCOPY FLEX DIAG 06/09/2023 TONSILLECTOMY PRIMARY/SECONDARY Tonsillectomy FAMILY HISTORY Problem Relation Age of Onset Cancer Mother 64 brain Stroke Mother due to brain surgery Obesity Mother other (brain tumor) Mother Lipids Father Thyroid Father Ischemic Heart Disease Father other (no contact) Brother Obesity Brother other (no contact) Brother Obesity Brother Cancer Maternal Grandmother brain Obesity Maternal Grandmother Cancer Maternal Aunt lymphoma Heart Maternal Uncle Obesity Maternal Uncle other (brain tumor) Maternal Uncle Coronary Artery Disease Paternal Uncle SOCIAL HISTORY Social History Tobacco Use Smoking status: Former Current packs/day: 0.00 Average packs/day: 0.5 packs/day for 5.0 years (2.5 ttl pk-yrs) Types: Cigarettes Start date: 06/22/2004 Quit date: 06/22/2009 Years since quittin.0 Smokeless tobacco (more content not included)... Normal [facility] 12 Lead EKGon 05-29-2024 12 Lead EKG [facility] Cardiovascular Services [address] [place] [address] 12 Lead EKG 05/29/24 1313 MR#: [id number] Acct: [id number] Name: FRANK VENTURA Rep #: [id number] : 1970 53 From: Tony Gonzales MD Attending Dr: Status: DEP ER Ordering Dr: Ted Cueto Date: 05/29/24 Location: ED Sex: F C Admitted: Test Reason : ABD PAIN Blood Pressure : */* mmHG Vent. Rate : 110 BPM Atrial Rate : 110 BPM P-R Int : 124 ms QRS Dur : 82 ms QT Int : 350 ms P-R-T Axes : 38 59 -59 degrees QTcB Int : [address] T wave abnormality, consider inferior ischemia ST T wave abnormality, consider anterolateral ischemia Abnormal ECG Confirmed by TONY GONZALES MD ([id number]), photography editor SHANTA LO ([id number]) on 05/31/2024 8:00:15 AM Referred By: Confirmed By: TONY GONZALES MD 05/31/24 0800 Date Tony Gonzales MD CC: LINK ASSEMBLER-Paulette Cueto; Dr. Tunde Bedolla DO; Dr. Juan Carolina MD Signed Normal [facility] Abdomen/Pelvis W IV Cont ONL Yon 05-29-2024 Abdomen/Pelvis W IV Cont ONLY [facility] Imaging Services [address] [place] [address] [id number] Abdomen/Pelvis W IV Cont ONLY MR#: [id number] Acct: [id number] Name: FRANK VENTURA Rep #: [id number] : 1970 F 53 From: Kim bryson MD PCP: Dr. Juan Carolina MD Status: REG ER Study: Abdomen/Pelvis W IV Cont ONLY Date of Exam: Exam# [id number] Ordering Dr: Ted Cueto [id number] HISTORY: abdominal pain. TECHNIQUE: Helically acquired images were obtained of the abdomen and pelvis after the intravenous administration of 100 mL 100mL [id number]-370. A radiation dose optimization technique was used for this scan. 412 images. COMPARISON: 04/18/2024. FINDINGS: LOWER CHEST: Lung bases clear. BOWEL: Tiny hiatal hernia. Bowel nondilated. Appendectomy. Mild colonic diverticulosis without focal inflammatory change observed. PERITONEUM: No significant ascites. LIVER: No enhancing mass. Mild fatty infiltration. GALLBLADDER/BILIARY TREE: Gallbladder present. SPLEEN/PANCREAS/ADRENAL GLANDS: Homogeneous and nonenlarged. KIDNEYS: Mild left hydronephrosis and hydroureter with a 1 mm UVJ calculus. Unremarkable right kidney. VESSELS: No abdominal aortic aneurysm. PELVIC ORGANS: Hysterectomy. BONES: Bilateral L5 spondylolysis without significant spondylolisthesis. 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 CT/Abdomen/Pelvis W IV Cont ONLY IMPRESSION: Mild left hydronephrosis secondary to a 1 mm UVJ calculus. Mild colonic diverticulosis without acute diverticulitis. Tiny hiatal hernia. Hepatic steatosis. Electronically Signed: Kim Yates MD at 14:19 EST , CC: WILLY Cueto; Dr. Juan Carolina MD [employer]: Signed Normal [facility] CBC W/Diff, Automatedon 12-0 Absolute Lymph 2.02 X10 3/uL Normal 0.83-4.51 [facility] Comment on above: Performed By: #### L 100.0100, L500.2500, L503.6005 #### [facility] [address] [place], [address] Absolute Neut 3.2 X10 3/uL Normal 2.0-7.7 [facility] Comment on above: Performed By: #### L 100.0100, L500.2500, L503.6005 #### [facility] [address] [place], [address] Basophils/100 WBC (Bld) 1.2 % High 0-1 [facility] Comment on above: Performed By: #### L 100.0100, L500.2500, L503.6005 #### [facility] [address] [place], [address] Eosinophils/100 WBC (Bld) 0.9 % Normal 0-5 [facility] Comment on above: Performed By: #### L 100.0100, L500.2500, L503.6005 #### [facility] [address] [place], [address] Erythrocyte distribution width (RBC) [Ratio] 13.0 % Normal 11.6-14.6 [facility] Comment on above: Performed By: #### L 100.0100, L500.2500, L503.6005 #### [facility] [address] [place], [address] Hematocrit (Bld) [Volume fraction] 45.9 % Normal 37-47 [facility] Comment on above: Performed By: #### L 100.0100, L500.2500, L503.6005 #### [facility] [address] [place], [address] Hemoglobin (Bld) [Mass/Vol] 15.8 g/dL High 12.0-15.0 [facility] Comment on above: Performed By: #### L 100.0100, L500.2500, L503.6005 #### [facility] [address] [place], [address] IG% 1.200 High 0.0-0.9 [facility] Comment on above: Result Comment: IG% - Immature Granulocytes (promyelocytes, myelocytes and metamyelocytes) > 1% indicates that a LEFT SHIFT is Present. Performed By: #### L 100.0100, L500.2500, L503.6005 #### [facility] [address] [place], [address] Lymphocytes/100 WBC (Bld) 35.2 % Normal 19-41 [facility] Comment on above: Performed By: #### L 100.0100, L500.2500, L503.6005 #### [facility] [address] [place], [address] MCH (RBC) [Entitic mass] 29.5 pg Normal 27.0-32.0 [facility] Comment on above: Performed By: #### L 100.0100, L500.2500, L503.6005 #### [facility] [address] [place], [address] MCHC (RBC) [Mass/Vol] 34.4 g/dL Normal 32-36 [facility] Comment on above: Performed By: #### L 100.0100, L500.2500, L503.6005 #### [facility] [address] [place], [address] MCV (RBC) [Entitic vol] 85.8 fL Normal 81-99 [facility] Comment on above: Performed By: #### L 100.0100, L500.2500, L503.6005 #### [facility] [address] [place], [address] Monocytes/100 WBC (Bld) 6.6 % Normal 0-10 [facility] Comment on above: Performed By: #### L 100.0100, L500.2500, L503.6005 #### [facility] [address] [place], [address] Neutrophils/100 WBC (Bld) 54.9 % Normal 47-70 [facility] Comment on above: Performed By: #### L 100.0100, L500.2500, L503.6005 #### [facility] [address] [place], [address] Nucleated RBC (Bld) [#/Vol] 0 10*3/uL Normal 0-5 [facility] Comment on above: Performed By: #### L 100.0100, L500.2500, L503.6005 #### [facility] [address] [place], [address] Platelet mean volume (Bld) [Entitic vol] 9.1 fL Normal 6.2-12.0 [facility] Comment on above: Performed By: #### L 100.0100, L500.2500, L503.6005 #### [facility] [address] [place], [address] Platelets (Bld) [#/Vol] 369 10*3/uL Normal 150-450 [facility] Comment on above: Performed By: #### L 100.0100, L500.2500, L503.6005 #### [facility] [address] [place], [address] RBC (Bld) [#/Vol] 5.35 10*6/uL Normal 4.2-5.4 [facility] Comment on above: Performed By: #### L 100.0100, L500.2500, L503.6005 #### [facility] [address] [place], [address] RDW SD 39.9 fl Normal 35.1-43.9 [facility] Comment on above: Performed By: #### L 100.0100, L500.2500, L503.6005 #### [facility] [address] [place], [address] WBC (Bld) [#/Vol] 5.7 10*3/uL Normal 4.4-11.0 [facility] Comment on above: Performed By: #### L 100.0100, L500.2500, L503.6005 #### [facility] [address] [place], [address] Comprehensive Metabolic Prof ilon 05-29-2024 Albumin [Mass/Vol] 4.3 g/dL Normal 3.2-5.0 [facility] Comment on above: Performed By: #### L 100.0100, L500.2500, L503.6005 #### [facility] [address] [place], [address] Albumin/Globulin [Mass ratio] 1.2 {ratio} Normal 0.9-2.4 [facility] Comment on above: Performed By: #### L 100.0100, L500.2500, L503.6005 #### [facility] [address] [place], [address] ALK P 113 U/L Normal 45-117 [facility] Comment on above: Performed By: #### L 100.0100, L500.2500, L503.6005 #### [facility] [address] [place], [address] ALT [Catalytic activity/Vol] 69 U/L High 13-56 [facility] Comment on above: Performed By: #### L 100.0100, L500.2500, L503.6005 #### [facility] [address] [place], [address] AST [Catalytic activity/Vol] 28 U/L Normal 15-37 [facility] Comment on above: Performed By: #### L 100.0100, L500.2500, L503.6005 #### [facility] [address] [place], [address] Bilirubin [Mass/Vol] 0.50 mg/dL Normal 0.20-1.00 [facility] Comment on above: Result Comment: For patients on eltrombopag therapy, use of Dimension Mccarley TBIL is not recommended. Performed By: #### L 100.0100, L500.2500, L503.6005 #### [facility] [address] [place], [address] BUN/CRE 13.6 RATIO Normal 10-20 [facility] Comment on above: Performed By: #### L 100.0100, L500.2500, L503.6005 #### [facility] [address] [place], [address] CA,Total 10.2 mg/dL High 8.5-10.1 [facility] Comment on above: Performed By: #### L 100.0100, L500.2500, L503.6005 #### [facility] [address] [place], [address] Chloride [Moles/Vol] 107 mmol/L Normal 98-107 [facility] Comment on above: Performed By: #### L 100.0100, L500.2500, L503.6005 #### [facility] [address] [place], [address] CO2 [Moles/Vol] 25.0 mmol/L Normal 21.0-32.0 [facility] Comment on above: Performed By: #### L 100.0100, L500.2500, L503.6005 #### [facility] [address] [place], [address] Creatinine [Mass/Vol] 0.96 mg/dL Normal 0.55-1.02 [facility] Comment on above: Result Comment: The validity of the calculated GFR GFRAA in patients over 70 years has not been determined. Clinical correlation is essential. Performed By: #### L 100.0100, L500.2500, L503.6005 #### [facility] [address] [place], [address] ECRCL 67.57 ml/min Normal [facility] Comment on above: Performed By: #### L 100.0100, L500.2500, L503.6005 #### [facility] [address] [place], [address] EST GFR - AA 78 mL/min Normal >60 [facility] Comment on above: Result Comment: Afri can [place] GFR Calc Performed By: #### L 100.0100, L500.2500, L503.6005 #### [facility] [address] [place], [address] GAP 10 Normal 5-15 [facility] Comment on above: Performed By: #### L 100.0100, L500.2500, L503.6005 #### [facility] [address] [place], [address] GFR/1.73 sq M.predicted among non-blacks MDRD (S/P/Bld) [Vol rate/Area] 65 mL/min/{1.73_m2} Normal >60 [facility] Comment on above: Result Comment: Non- GFR Calc Performed By: #### L 100.0100, L500.2500, L503.6005 #### [facility] [address] [place], [address] Globulin (S) [Mass/Vol] 3.6 g/dL Normal 2.2-4.2 [facility] Comment on above: Performed By: #### L 100.0100, L500.2500, L503.6005 #### [facility] [address] [place], [address] Glucose [Mass/Vol] 132 mg/dL High 74-106 [facility] Comment on above: Result Comment: Fast ing Glucose result greater than or equal to 126 mg/dL suggests DIABETES MELLITUS per A.D.A. criteria. Performed By: #### L 100.0100, L500.2500, L503.6005 #### [facility] [address] [place], [address] Potassium [Moles/Vol] 3.7 mmol/L Normal 3.5-5.1 [facility] Comment on above: Performed By: #### L 100.0100, L500.2500, L503.6005 #### [facility] [address] [place], [address] Sodium [Moles/Vol] 142 mmol/L Normal 136-145 [facility] Comment on above: Performed By: #### L 100.0100, L500.2500, L503.6005 #### [facility] [address] [place], [address] T PROT 7.9 g/dL Normal 6.4-8.2 [facility] Comment on above: Performed By: #### L 100.0100, L500.2500, L503.6005 #### [facility] [address] [place], [address] Urea nitrogen [Mass/Vol] 13 mg/dL Normal 7-18 [facility] Comment on above: Performed By: #### L 100.0100, L500.2500, L503.6005 #### [facility] [address] [place], [address] Emergency Department Summary on 05-29-2024 Emergency Department Summary [facility] Medical Records Department [address] [place] [address] Emergency Department Summary 05/29/24 MR#: [id number] Acct: [id number] Name: FRANK VENTURA Rep #: [id number] : 1970 53 From: Ted AGUILERA PCP: Dr. Juan Carolina MD Status:REG ER Location: ED HPI History of Present Illness Chief Complaint: Abd Pain Narrative Narrative: Patient is a 53-year-old female with history of hemorrhagic colitis, GERD who does see Dr. Rodriguez. Patient's last visit to the emerged department was March 2024. Patient states that today while at latter-day, she developed significant abdominal pain, followed by vomiting and nausea. Patient dates has had multiple episodes of vomitus. She denies any bloody diarrhea. Patient's last bowel movement was yesterday and it was normal. She denies any fever or chills. Patient did come in via ambulance. [facility] Medical History (Updated 05/29/24 @ 15:56 by Ted Aslanides, LINK ASSEMBLER-C) Ischemic colitis Wears hearing aid Wears glasses Arthritis High cholesterol History of ulceration History of IBS Heartburn Gastric reflux Former smoker History of echocardiogram History of stress test Rheumatoid arthritis Acute hemorrhagic colitis GERD (gastroesophageal reflux disease) Reflux esophagitis Endometriosis Home Medications ???Medication ???Instructions ???Recorded ???Last Taken ???Type hyoscyamine sulfate 0.125 mg 0.125 mg PO BID-QID PRN abdominal 10/21/22 04/17/24 Rx disintegrating tablet pain #120 tabs omeprazole 40 mg capsule,delayed 40 mg PO DAILY #90 caps 10/21/22 04/17/24 Rx release semaglutide (weight loss) 1.7 1.7 mg subcut Q7D 04/18/24 04/16/24 History mg/0.75 mL subcutaneous pen injector midodrine 5 mg tablet 5 mg PO TID #90 tabs 04/21/24 Unknown Rx cyclobenzaprine 10 mg tablet 10 mg PO TID PRN Muscle Spasm #10 05/29/24 Unknown Rx TABLETS ondansetron 4 mg disintegrating 4 mg PO Q8H PRN PRN Nausea #10 tabs 05/29/24 Unknown Rx tablet oxycodone-acetaminophen 5 mg-325 1 tab PO Q8H PRN pain 3 days #10 05/29/24 Unknown Rx mg tablet (Percocet) tabs tamsulosin 0.4 mg capsule (Flomax) 0.4 mg PO DAILY #7 caps 05/29/24 Unknown Rx Allergy/AdvReac Type Severity Reaction Status Date / Time No Known Allergies Allergy Verified 05/29/24 12:23 Family History Father Heart disease Hypertension Hyperlipidemia Thyroid disorder Skin cancer Grandmother Breast cancer Mother Brain cancer Other Brain tumor Surgical History History of cardiac catheterization Hx of foot surgery H/O laparoscopy Hx of tonsillectomy History of appendectomy History of hysterectomy Social History Smoking Status: Former smoker ROS ROS ED ROS Narrative Constitutional: Negative for fever, chills, weight loss, weakness Eyes: Negative for vision loss, vision change, double vision ENT: Negative for any sore throat, ear pain, congestion Cardiovascular: Negative for any chest pain, tightness, palpitations Respiratory: Negative for any cough, sputum production, hemoptysis, dyspnea, dyspnea on exertion, orthopnea Gastrointestinal: Negative for any diarrhea, constipation, blood in stool, blood in vomit. Positive for abdominal pain, nausea and vomiting : Negative for any urinary frequency, dysuria, retention, blood in urine Muscle skeletal: Negative for any neck pain, back pain Neurological: Negative for any headache, syncope, dizziness Skin: Negative for any rashes, itching, abrasions, lacerations Psychiatric: Negative for any depression, anxiety, stress, suicidal ideation, homicidal ideation Hematologic: Negative for any excessive bruising, easy bleeding EXAM Physical Exam Narrative Exam Narrative: Vital signs reviewed. On my initial evaluation, was hyperventilating, grunting. Patient did have some vomitus here. Patient secondary to the grunting, tachypnea, is difficult to get information from the patient. I did speak with the patient's . HEET: Head normocephalic atraumatic, TMs clear bilaterally. Posterior pharynx is clear, moist mucous membranes. Nares clear bilaterally. Neck: Supple with no lymphadenopathy or tenderness. No signs of meningismus. Cardiac: Regular rate and rhythm no murmurs gallops or rubs, equal peripheral pulses bilaterally. Respiratory: Lungs clear to auscultation bilaterally. No chest tenderness. Abdomen: Soft, nondistended. No abdominal bruit or pulsatile masses. No hepatosplenomegaly. Difficult to get a appropriate abdominal exam, most the patient's pain seem to be in the left lower, left flank area. Extremities: No peripheral edema, no signs of gross trauma or deformity. Active full ra (more content not included)... Normal [facility] [facility] L501.4020on 05-29-2024 TROPONIN-I HS < 3 Low 3.0-54.0 [facility] Comment on above: Order Comment: 'TROP ' Serial specimen #1, #2 or #3: 1 Result Comment: Monika begum Note: New Test Units and Gender Specific Reference Ranges. For more information see Policy Stat Procedure Mccarley High Sensitivity Troponin (TNIH) and attachments. Performed By: #### L 100.0100, L500.2500, L503.6005 #### [facility] [address] [place], [address] Lactic Acidon 05-29-2024 Lactate [Moles/Vol] 2.4 mmol/L Invalid Interpretation Code 0.4-1.9 [facility] Comment on above: Order Comment: Y Result Comment: Crit ical Result(s) Called at: 14:02:35 05/29/2024 by: ELISHA KEE to Enrique Del Toro. Results read back by same. Performed By: #### L 100.0100, L500.2500, L503.6005 #### [facility] [address] [place], [address] Lipaseon 05-29-2024 Lipase [Catalytic activity/Vol] 52 U/L Normal 13-75 [facility] Comment on above: Result Comment: Monika begum note: LIPASE revised reference range effective 22. New Lipase methodology. Expected to produce lower values than the previous assay method. NEW Reference Range: 13 - 75 U/L Performed By: #### L 100.0100, L500.2500, L503.6005 #### [facility] [address] [place], [address] Urinalysis, Completeon 05-29 BACTERIA RARE Normal None Seen [facility] Comment on above: Order Comment: Y Performed By: #### L 100.0100, L500.2500, L503.6005 #### [facility] [address] [place], [address] RBC 5-10 SEEN Normal 0-5 [facility] Comment on above: Order Comment: Y Performed By: #### L 100.0100, L500.2500, L503.6005 #### [facility] [address] [place], [address] BILIRUBIN URINE Negative Normal Negative [facility] Comment on above: Order Comment: Y Performed By: #### L 100.0100, L500.2500, L503.6005 #### [facility] [address] [place], [address] Clarity (U) Clear Normal Clear [facility] Comment on above: Order Comment: Y Performed By: #### L 100.0100, L500.2500, L503.6005 #### [facility] [address] [place], [address] Color (U) Straw Normal Yellow [facility] Comment on above: Order Comment: Y Performed By: #### L 100.0100, L500.2500, L503.6005 #### [facility] [address] [place], [address] GLUCOSE, UR Normal Normal Normal [facility] Comment on above: Order Comment: Y Performed By: #### L 100.0100, L500.2500, L503.6005 #### [facility] [address] [place], [address] KETONE UR 15 mg/dl Abnormal Negative [facility] Comment on above: Order Comment: Y Performed By: #### L 100.0100, L500.2500, L503.6005 #### [facility] [address] [place], [address] LEUK ESTERASE Negative Normal Negative [facility] Comment on above: Order Comment: Y Performed By: #### L 100.0100, L500.2500, L503.6005 #### [facility] [address] [place], [address] Nitrite Ql (U) Negative Normal Negative [facility] Comment on above: Order Comment: Y Performed By: #### L 100.0100, L500.2500, L503.6005 #### [facility] [address] [place], [address] OCCULT BLOOD-UR 10 /ul Abnormal Negative [facility] Comment on above: Order Comment: Y Performed By: #### L 100.0100, L500.2500, L503.6005 #### [facility] [address] [place], [address] pH UR 5.0 Normal 5.0 - 8.0 [facility] Comment on above: Order Comment: Y Performed By: #### L 100.0100, L500.2500, L503.6005 #### [facility] [address] [place], [address] PROT DIPSTX 30 mg/dl Abnormal Negative [facility] Comment on above: Order Comment: Y Performed By: #### L 100.0100, L500.2500, L503.6005 #### [facility] [address] [place], [address] SP.GR. DIPSTX 1.010 Normal 1.002-1.03 0 [facility] Comment on above: Order Comment: Y Performed By: #### L 100.0100, L500.2500, L503.6005 #### [facility] [address] [place], [address] UROBILI Normal Normal Normal [facility] Comment on above: Order Comment: Y Performed By: #### L 100.0100, L500.2500, L503.6005 #### [facility] [address] [place], [address] EPI,SQUAMOUS 0 SEEN Normal 5-10 [facility] Comment on above: Order Comment: Y Performed By: #### L 100.0100, L500.2500, L503.6005 #### [facility] [address] [place], [address] Mucus Ql (Urine sed) 0 SEEN Normal [facility] Comment on above: Order Comment: Y Performed By: #### L 100.0100, L500.2500, L503.6005 #### [facility] [address] [place], [address] WBC 0 SEEN Normal 0-5 [facility] Comment on above: Order Comment: Y Performed By: #### L 100.0100, L500.2500, L503.6005 #### [facility] [address] [place], [address] CBC W/Diff, Automatedon 11-1 Absolute Lymph 1.81 X10 3/uL Normal 0.83-4.51 [facility] Comment on above: Performed By: #### L 100.0100, L500.2500, L503.6005 #### [facility] [address] [place], [address] Absolute Neut 2.9 X10 3/uL Normal 2.0-7.7 [facility] Comment on above: Performed By: #### L 100.0100, L500.2500, L503.6005 #### [facility] [address] [place], [address] Basophils/100 WBC (Bld) 1.1 % High 0-1 [facility] Comment on above: Performed By: #### L 100.0100, L500.2500, L503.6005 #### [facility] [address] [place], [address] Eosinophils/100 WBC (Bld) 1.7 % Normal 0-5 [facility] Comment on above: Performed By: #### L 100.0100, L500.2500, L503.6005 #### [facility] [address] [place], [address] Erythrocyte distribution width (RBC) [Ratio] 13.2 % Normal 11.6-14.6 [facility] Comment on above: Performed By: #### L 100.0100, L500.2500, L503.6005 #### [facility] [address] [place], [address] Hematocrit (Bld) [Volume fraction] 41.8 % Normal 37-47 [facility] Comment on above: Performed By: #### L 100.0100, L500.2500, L503.6005 #### [facility] [address] [place], [address] Hemoglobin (Bld) [Mass/Vol] 13.9 g/dL Normal 12.0-15.0 [facility] Comment on above: Performed By: #### L 100.0100, L500.2500, L503.6005 #### [facility] [address] [place], [address] IG% 0.400 Normal 0.0-0.9 [facility] Comment on above: Result Comment: IG% - Immature Granulocytes (promyelocytes, myelocytes and metamyelocytes) > 1% indicates that a LEFT SHIFT is Present. Performed By: #### L 100.0100, L500.2500, L503.6005 #### [facility] [address] [place], [address] Lymphocytes/100 WBC (Bld) 34.2 % Normal 19-41 [facility] Comment on above: Performed By: #### L 100.0100, L500.2500, L503.6005 #### [facility] [address] [place], [address] MCH (RBC) [Entitic mass] 28.7 pg Normal 27.0-32.0 [facility] Comment on above: Performed By: #### L 100.0100, L500.2500, L503.6005 #### [facility] [address] [place], [address] MCHC (RBC) [Mass/Vol] 33.3 g/dL Normal 32-36 [facility] Comment on above: Performed By: #### L 100.0100, L500.2500, L503.6005 #### [facility] [address] [place], [address] MCV (RBC) [Entitic vol] 86.4 fL Normal 81-99 [facility] Comment on above: Performed By: #### L 100.0100, L500.2500, L503.6005 #### [facility] [address] [place], [address] Monocytes/100 WBC (Bld) 7.9 % Normal 0-10 [facility] Comment on above: Performed By: #### L 100.0100, L500.2500, L503.6005 #### [facility] [address] [place], [address] Neutrophils/100 WBC (Bld) 54.7 % Normal 47-70 [facility] Comment on above: Performed By: #### L 100.0100, L500.2500, L503.6005 #### [facility] [address] [place], [address] Nucleated RBC (Bld) [#/Vol] 0 10*3/uL Normal 0-5 [facility] Comment on above: Performed By: #### L 100.0100, L500.2500, L503.6005 #### [facility] [address] [place], [address] Platelet mean volume (Bld) [Entitic vol] 9.1 fL Normal 6.2-12.0 [facility] Comment on above: Performed By: #### L 100.0100, L500.2500, L503.6005 #### [facility] [address] [place], [address] Platelets (Bld) [#/Vol] 327 10*3/uL Normal 150-450 [facility] Comment on above: Performed By: #### L 100.0100, L500.2500, L503.6005 #### [facility] [address] [place], [address] RBC (Bld) [#/Vol] 4.84 10*6/uL Normal 4.2-5.4 [facility] Comment on above: Performed By: #### L 100.0100, L500.2500, L503.6005 #### [facility] [address] [place], [address] RDW SD 41.3 fl Normal 35.1-43.9 [facility] Comment on above: Performed By: #### L 100.0100, L500.2500, L503.6005 #### [facility] [address] [place], [address] WBC (Bld) [#/Vol] 5.3 10*3/uL Normal 4.4-11.0 [facility] Comment on above: Performed By: #### L 100.0100, L500.2500, L503.6005 #### [facility] [address] [place], [address] CRPon 05-05-2024 C-REACTIVE PROT < 2.90 Normal 0.0-3.0 [facility] Comment on above: Result Comment: C-Re active Protein (CRP) provides useful information for the diagnosis, therapy and monitoring of inflammatory processes and associated diseases. For the evaluation of Relative Risk for Cardiovascular Disease, a High Sensitivity CRP (HSCRP) should be ordered. Performed By: #### L 100.0100, L500.2500, L503.6005 #### [facility] [address] [place], [address] Gastroenterology Visit Repor ton 05-05-2024 Gastroenterology Visit Report [facility] [address] [place] [address] OFFICE VISIT Date of Service: 05/05/24 MR#: [id number] Acct: [id number] Name: FRANK VENTURA Rep #: [id number] : 1970 Provider: WILLY paige Age/Sex: 53/F Location: [facility] Status: Signed with Addenda ADDENDUM by WILLY Jones on 05/05/24 at 1714 HPI Details: FRANK VENTURA, is a 53 F who presents to the office today for 05/05/24 171 Date Malika Jones cc: * Signed ADDENDUM by WILLY Jones on 05/05/24 at 1713 HPI Details: FRANK VENTURA, is a 53 F who presents to the office today for 05/05/24 171 Date Malika Jones cc: * Signed Intake Vital Signs 04/19/24 15:08 05/05/24 11:06 Height 5 ft 3 in Weight: 180 lb 2 oz Respiration 16 Pulse 83 Temp 98.0 F Pulse Oximetry (%) 95 Intake Visit Reasons: Hospital FU Chief Complaint: recurrent ischemic colitis Presentation Manager Required: No Is patient in pain?: No Allergies No Known Allergies Allergy (Verified 05/05/24 11:11) Medications ???Medication ???Instructions ???Recorded ???Confirmed ???Type hyoscyamine sulfate 0.125 mg 0.125 mg PO BID-QID PRN abdominal 10/21/22 05/05/24 Rx disintegrating tablet pain #120 tabs omeprazole 40 mg capsule,delayed 40 mg PO DAILY #90 caps 10/21/22 05/05/24 Rx release semaglutide (weight loss) 1.7 1.7 mg subcut Q7D 04/18/24 05/05/24 History mg/0.75 mL subcutaneous pen injector metronidazole 500 mg tablet 500 mg PO Q8H #15 tabs 04/20/24 05/05/24 Rx midodrine 5 mg tablet 5 mg PO TID #90 tabs 04/21/24 05/05/24 Rx Nurse's Note: Since her discharge she is feeling better. She can tell her colon is still healing its tender where the colitis was. The midodrine has helped her blood pressure some but it is still pretty low and wonders if it may need to be increased. Has not adjusted diet yet. Would like to review lab work. [facility] Medical History Wears hearing aid Wears glasses Arthritis High cholesterol History of ulceration History of IBS Heartburn Gastric reflux Former smoker History of echocardiogram History of stress test Rheumatoid arthritis Acute hemorrhagic colitis GERD (gastroesophageal reflux disease) Reflux esophagitis Endometriosis Surgical History History of cardiac catheterization Hx of foot surgery H/O laparoscopy Hx of tonsillectomy History of appendectomy History of hysterectomy Family History Father Heart disease Hypertension Hyperlipidemia Thyroid disorder Skin cancer Grandmother Breast cancer Mother Brain cancer Other Brain tumor Social History Smoking Status: Former smoker HPI HPI Chief Complaint: recurrent ischemic colitis Details: 53y/o female presents for hospital follow-up. She was admitted 04/18/2024 with complaints of abdominal pain and rectal bleeding. CT A P completed 04/18/2024 revealed a small HH, revealed colitis involving the transverse, splenic flexure, descending and rectosigmoid. WBC initially elevated to 11.5, LA 2.5. HGB dropped from 15.7 to 11.6 during admission with resolution of leukocytosis. Colonoscopy was completed 04/19/2024 and biopsies were consistent with IC. CTA unremarkable for vascular compromise. Hypercoaguable w/u was unremarkable. Cortisol levels responded appropriately to ACTH. Stool for C. Diff and enteric pathogens was unremarkable. She reports a history of at least 5 prior episodes of ischemic colitis. She was discharged home on Cipro and Metronidazole and has completed this course. She reports with the addition of Midodrine 5mg TID she has seen an improvement in hypotension as well as resolution of BLE neuropathy and RLS. SBP ranges form 90-103 with HR in the 80's. She will increase Mirodrine to 10mg TID and keep us apprised of BP and HR. She denies any recurrent severe pain or bleeding. She is experiencing a very mild LLQ intermittent postprandial aching. HGB dropped from 15.7 to 11.6 this admission. Low aldolase levels less than 2.0 to 3.0 U/L???is considered a low level of aldolase. Low levels of aldolase can be seen in people with: fructose intolerance.??? She will have to eliminate all fructose from her diet. - she is taking midodrine 5mg TID - SBP has ranged from 90-103 - HR in the 80's - she has noted resolution in neuropathy and RLS since starting midodrine - reports episodes of IC are typically onset in the middle of the night - we discussed - she denies an (more content not included)... Normal [facility] AT III Func / Immunolon 11- AT3 AG, IMMUNOL 76 Normal 72-124 [facility] Comment on above: Order Comment: Test( s) 017550-Dwkwwdfcwkca Antigenwas developed and its performance characteristicsdetermined by [facility]. It has not been cleared or approvedby the Food and Drug Administration. Performed By: #### L 3100.7325, L3100.7275, L4500.5000, L3100.8410, L4500.2000, L3410.2000, L3300.0450 ####[facility] [address] [place], [place], [id number] AT3 FUNCTIONAL 102 Normal 75-135 [facility] Comment on above: Order Comment: Test( s) 629094-Kbqyonmnqxxw Antigenwas developed and its performance characteristicsdetermined by [facility]. It has not been cleared or approvedby the Food and Drug Administration. Result Comment: Dire ct Xa inhibitor anticoagulants such as rivaroxaban, apixaban and edoxaban will lead to spuriously elevated antithrombin activity levels possibly masking a deficiency. Performed By: #### L 3100.7325, L3100.7275, L4500.5000, L3100.8410, L4500.2000, L3410.2000, L3300.0450 ####[facility] [address] [place], [place], [id number] Aldolaseon 04-26-2024 ALDOLASE 2.8 U/L Low 3.3-10.3 [facility] Comment on above: Order Comment: Test( s) 379623-Wxuavirilbc; 941207-Ofnyq Activity, Plasma was developed and its performance characteristics determined by [facility]. It has not been cleared or approved by the Food and Drug Administration. Result Comment: Perf ormed at: - [facility] [id number] Trials Manager: Viviane Martinez MD, Phone: [phone] Performed at: - [facility] [id number] Trials Manager: Jeferson Reynolds PhD, Phone: [phone] Performed By: #### L 4600.0100, L3300.1050, L3100.7000 #### [facility] [address] [place], [address] Anticardiolipin IgG, IgMon 1 06-26-2023 ANTICARDIO IgG < 9 Normal 0-14 [facility] Comment on above: Order Comment: Test( s) 152192-Zqsombngrmro Antigenwas developed and its performance characteristicsdetermined by [facility]. It has not been cleared or approvedby the Food and Drug Administration. Result Comment: Nega tive: <15 Indeterminate: 15 - 20 Low-Med Positive: >20 - 80 High Positive: >80 Performed By: #### L 3100.7325, L3100.7275, L4500.5000, L3100.8410, L4500.2000, L3410.2000, L3300.0450 ####[facility] [address] [place], [place], [id number] Anticardio.IgM < 9 Normal 0-12 [facility] Comment on above: Order Comment: Test( s) 517319-Bakboykrwyck Antigenwas developed and its performance characteristicsdetermined by [facility]. It has not been cleared or approvedby the Food and Drug Administration. Result Comment: Nega tive: <13 Indeterminate: 13 - 20 Low-Med Positive: >20 - 80 High Positive: >80 Performed By: #### L 3100.7325, L3100.7275, L4500.5000, L3100.8410, L4500.2000, L3410.2000, L3300.0450 ####[facility] [address] [place], [place], [phone] Beta-2 Glycoprot IgG, A, 04-26-2024 B2 GLYCO I IGA <9 Normal 0-25 [facility] Comment on above: Order Comment: Test( s) 904107-Qmrdsillucjc Antigenwas developed and its performance characteristicsdetermined by [facility]. It has not been cleared or approvedby the Food and Drug Administration. Result Comment: Resu lt Units: GPI IgA units The reference interval reflects a 3SD or 99th percentile interval, which is thought to represent a potentially clinically significant result in accordance with the International Consensus Statement on the classification criteria for definitive antiphospholipid syndrome (APS). J Thromb Haem 2006;4:295-306. Performed By: #### L 3100.7325, L3100.7275, L4500.5000, L3100.8410, L4500.2000, L3410.2000, L3300.0450 ####[facility] [address] [place], [place], [phone] B2 GLYCO I IGG <9 Normal 0-20 [facility] Comment on above: Order Comment: Test( s) 455193-Djghgahgawlj Antigenwas developed and its performance characteristicsdetermined by [facility]. It has not been cleared or approvedby the Food and Drug Administration. Result Comment: Resu lt Units: GPI IgG units The reference interval reflects a 3SD or 99th percentile interval, which is thought to represent a potentially clinically significant result in accordance with the International Consensus Statement on the classification criteria for definitive antiphospholipid syndrome (APS). J Thromb Haem 2006;4:295-306. Performed By: #### L 3100.7325, L3100.7275, L4500.5000, L3100.8410, L4500.2000, L3410.2000, L3300.0450 ####[facility] [address] [place], [place], [phone] B2 GLYCO I IGM <9 Normal 0-32 [facility] Comment on above: Order Comment: Test( s) 199923-Veylktqithtw Antigenwas developed and its performance characteristicsdetermined by [facility]. It has not been cleared or approvedby the Food and Drug Administration. Result Comment: Resu lt Units: GPI IgM units The reference interval reflects a 3SD or 99th percentile interval, which is thought to represent a potentially clinically significant result in accordance with the International Consensus Statement on the classification criteria for definitive antiphospholipid syndrome (APS). J Thromb Haem 2006;4:295-306. Performed By: #### L 3100.7325, L3100.7275, L4500.5000, L3100.8410, L4500.2000, L3410.2000, L3300.0450 ####[facility] [address] [place], [address] CCP IgG Antibodieson 024 CCP IgG Ab. 6 units Normal 0-19 [facility] Comment on above: Order Comment: Test( s) 959310-Owsbyzqnktb; 358030-Pzhch Activity, Plasma was developed and its performance characteristics determined by [facility]. It has not been cleared or approved by the Food and Drug Administration. Result Comment: Nega tive <20 Weak positive 20 - 39 Moderate positive 40 - 59 Strong positive >59 Performed By: #### L 4600.0100, L3300.1050, L3100.7000 #### [facility] [address] [place], [place], [id number] Fact V Leiden Mutationon FACTOR V LEIDEN Comment Normal . [facility] Comment on above: Order Comment: Test( s) 890296-Ursmwlvyfkbc Antigenwas developed and its performance characteristicsdetermined by [facility]. It has not been cleared or approvedby the Food and Drug Administration. Result Comment: Resu lt: c.1601G>A (p.[id number]) - Not Detected This result is not associated with an increased risk for venous thromboembolism. See Additional Clinical Information and Comments. Additional Clinical Information: Venous thromboembolism is a multifactorial disease influenced by genetic, environmental, and circumstantial risk factors. The c.1601G>A (p. Ixy483Sbb) variant in the F5 gene, commonly referred to as Factor V Leiden, is a genetic risk factor for venous thromboembolism. Heterozygous carriers of this variant have a 6- to 8-fold increased risk for venous thromboembolism. Individuals homozygous for this variant (ie, with a copy of the variant on each chromosome) have an approximately 80-fold increased risk for venous thromboembolism. Individuals who carry both a c.*97G>A variant in the F2 gene and Factor V Leiden have an approximately 20-fold increased risk for venous thromboembolism. Risks are likely to be even higher in more complex genotype combinations involving the F2 c.*97G>A variant and Factor V Leiden (PMID: [id number]). Additional risk factors include but are not limited to: deficiency of protein C, protein S, or antithrombin III, age, male sex, personal or family history of deep vein thromboembolism, smoking, surgery, prolonged immobilization, malignant neoplasm, tamoxifen treatment, raloxifene treatment, oral contraceptive use, hormone replacement therapy, and . Management of thrombotic risk and thrombotic events should follow established guidelines and fit the clinical circumstance. This result cannot predict the occurrence or recurrence of a thrombotic event. Comment: Genetic counseling is recommended to discuss the potential clinical implications of positive results, as well as recommendations for testing family members. Genetic Coordinators are available for health care providers to discuss results at [phone] ([phone] Test Details: Variant Analyzed: c.1601G>A (p. [id number]), referred to as Factor V Leiden Methods/Limitations: DNA analysis of the F5 gene (NM_[id number]) was performed by PCR amplification followed by restriction enzyme analysis. The diagnostic sensitivity is >99%. Results must be combined with clinical information for the most accurate interpretation. Molecular-based testing is highly accurate, but as in any laboratory test, diagnostic errors may occur. False positive or false negative results may occur for reasons that include genetic variants, blood transfusions, bone marrow transplantation, somatic or tissue-specific mosaicism, mislabeled samples, or erroneous representation of family relationships. This test was developed and its performance characteristics determined by [facility] [facility]. It has not been cleared or approved by the Food and Drug Administration. References: Jacquie S, Hyacinth AK, David R, Shelly WW, Duc JH; A[employer] Professional Practice and Guidelines Committee. Addendum: [place] [employer] consensus statement on factor V Leiden mutation testing. [facility]ella Med. 2020Aug 24. doi: 10.1038/[id number]-s. PMID: 98434249. Stephanie MARTIN. Factor V Leiden Thrombophilia. 1998November 02 (Updated 2017Jun 25). In: Indra MP, Cheko HH, Davdi RA, et al., editors. Alvarez(R) (Internet). [place] ([place]): [facility]; 4522-7953. Available from: https://www.ncbi.nlm.nih.gov/books/IOW1473/ Felton S, Hyacinth AK, Booker X, Corby B, Candelario EB, Eva P, Sorin CS; [employer] Laboratory Sensor Operator Committee. Venous thromboembolism laboratory testing (factor V Leiden and factor II c.*97G>A), 2018 update: a technical standard of the [place] [employer] and [employer] ([employer]MG). Arabella Med. 2018 May;20(12):6620-7006. doi: 10.1038/[id number]-l. Epub 2017Mar 26. PMID: 00756555. Performed By: #### L 3100.7325, L3100.7275, L4500.5000, L3100.8410, L4500.2000, L3410.2000, L3300.0450 ####[facility] [address] [place], [place], [address] Reviewed By Comment Normal . [facility] Comment on above: Order Comment: Test( s) 844110-Meftrshzufym Antigenwas developed and its performance characteristicsdetermined by [employer]. It has not been cleared or approvedby the Food and Drug Administration. Result Comment: Tech nical Component performed at [facility] Professional Component performed by: [employer] Casper Gagnon, Ph.D., [facility] Director, Molecular Genetics [address] [place] [address] [place] [address] Performed By: #### L 3100.7325, L3100.7275, L4500.5000, L3100.8410, L4500.2000, L3410.2000, L3300.0450 ####[facility] [address] [place], [address] Factor II, DNA Analysison FACTOR II, DNA Comment Normal . [facility] Comment on above: Order Comment: Test( s) 515784-Tdysmipwrtvv Antigenwas developed and its performance characteristicsdetermined by [employer]. It has not been cleared or approvedby the Food and Drug Administration. Result Comment: Resu lt: c.*97G>A - Not Detected This result is not associated with an increased risk for venous thromboembolism. See Additional Clinical Information and Comments. Additional Clinical Information: Venous thromboembolism is a multifactorial disease influenced by genetic, environmental, and circumstantial risk factors. The c.*97G>A variant in the F2 gene is a genetic risk factor for venous thromboembolism. Heterozygous carriers have a 2- to 4-fold increased risk for venous thromboembolism. Homozygotes for the c.*97G>A variant are rare. The annual risk of VTE in homozygotes has been reported to be 1.1%/year. Individuals who carry both a c.*97G>A variant in the F2 gene and a c.1601G>A (p. [id number]) variant in the F5 gene (commonly referred to as Factor V Leiden) have an approximately 20- fold increased risk for venous thromboembolism. Risks are likely to be even higher in more complex genotype combinations involving the F2 c.*97G>A variant and Factor V Leiden (PMID: 94367023). Additional risk factors include but are not limited to: deficiency of protein C, protein S, or antithrombin III, age, male sex, personal or family history of deep vein thromboembolism, smoking, surgery, prolonged immobilization, malignant neoplasm, tamoxifen treatment, raloxifene treatment, oral contraceptive use, hormone replacement therapy, and . Management of thrombotic risk and thrombotic events should follow established guidelines and fit the clinical circumstance. This result cannot predict the occurrence or recurrence of a thrombotic event. Comments: Genetic counseling is recommended to discuss the potential clinical implications of positive results, as well as recommendations for testing family members. Genetic Coordinators are available for health care providers to discuss results at [phone] Test Details: Variant analyzed: c.*97G>A, previously referred to as [id number] Methods/Limitations: DNA analysis of the F2 gene (NM_000506.5) was performed by PCR amplification followed by restriction enzyme analysis. The diagnostic sensitivity is >99%. Results must be combined with clinical information for the most accurate interpretation. Molecular-based testing is highly accurate, but as in any laboratory test, diagnostic errors may occur. False positive or false negative results may occur for reasons that include genetic variants, blood transfusions, bone marrow transplantation, somatic or tissue-specific mosaicism, mislabeled samples, or erroneous representation of family relationships. This test was developed and its performance characteristics determined by [facility]. It has not been cleared or approved by the Food and Drug Administration. References: Jacquie S, Hyacinth PORRAS, David R, Shelly WW, Duc JH; [employer] Professional Practice and Guidelines Committee. Addendum: [place] [employer] consensus statement on factor V Leiden mutation testing. Arabella Med. 2020Aug 24. doi: 10.1038/[id number]-d. PMID: 86444101. Stephanie MARTIN. Prothrombin Thrombophilia. 2005Jan 13 [Updated 2020Jul 26]. In: Indra MP, Cheko HH, David RA, et al., editors. Alvarez(R) [Internet]. [place] ([place]): [facility]; 6856-8281. Available from: https://www.ncbi.nlm.nih.gov/books/CXI2736/ Felton Springer, Hyacinth PORRAS, Booker X, Corby B, Candelario EB, Eva P, Sorin CS; [employer] Laboratory Sensor Operator Committee. Venous thromboembolism laboratory testing (factor V Leiden and factor II c.*97G>A), 2018 update: a technical standard of the [place] [employer] (ACMG). Arabella Med. 2018 May;20(12):4572-6459. doi: 10.1038/[id number]-l. Epub 2017Mar 26. PMID: 51104264. Performed By: #### L 3100.7325, L3100.7275, L4500.5000, L3100.8410, L4500.2000, L3410.2000, L3300.0450 ####[facility] [address] [place], [address] Protein C Defic. Profileon 1 06-26-2023 PROTEIN C Ag 127 Normal 60-150 [facility] Comment on above: Order Comment: Test( s) 528685-Togbopldcrrd Antigenwas developed and its performance characteristicsdetermined by [facility]. It has not been cleared or approvedby the Food and Drug Administration. Performed By: #### L 3100.7325, L3100.7275, L4500.5000, L3100.8410, L4500.2000, L3410.2000, L3300.0450 ####[facility] [address] [place], [address] Protein C, Functionalon PROTEIN C,FUNC 154 Normal 73-180 [facility] Comment on above: Order Comment: Test( s) 521251-Whkrhaqqpkxt Antigenwas developed and its performance characteristicsdetermined by [facility]. It has not been cleared or approvedby the Food and Drug Administration. Performed By: #### L 3100.7325, L3100.7275, L4500.5000, L3100.8410, L4500.2000, L3410.2000, L3300.0450 ####[facility] [address] [place], [address] Renin/Aldosterone Activityon 04-26-2024 ALD/RENIN RATIO <1.7 Normal 0.0-30.0 [facility] Comment on above: Order Comment: Test( s) 141769-Kgledoyvyjj; 709538-Klfkj Activity, Plasma was developed and its performance characteristics determined by [facility]. It has not been cleared or approved by the Food and Drug Administration. Result Comment: Unit s: ng/dL per ng/mL/hr Performed By: #### L 4600.0100, L3300.1050, L3100.7000 #### [facility] [address] [place], [address] ALDOSTERONE,S < 1.0 Normal 0.0-30.0 [facility] Comment on above: Order Comment: Test( s) 575800-Cfazitljnop; 772150-Sjcbf Activity, Plasma was developed and its performance characteristics determined by [facility]. It has not been cleared or approved by the Food and Drug Administration. Performed By: #### L 4600.0100, L3300.1050, L3100.7000 #### [facility] [address] [place], [address] RENIN, PLASMA 0.578 ng/mL/hr Normal 0.167-5.38 0 [facility] Comment on above: Order Comment: Test( s) 263181-Cxzdoclsjuw; 499577-Sbzpq Activity, Plasma was developed and its performance characteristics determined by [facility]. It has not been cleared or approved by the Food and Drug Administration. Performed By: #### L 4600.0100, L3300.1050, L3100.7000 #### [facility] [address] [place], [address] Basic Metabolic Profile (BMP )on 04-23-2024 BUN Normal 7-18 [facility] Comment on above: Result Comment: Canc elled via OM: Order cancelled - Patient discharged Performed By: #### L 100.0100, L500.2500, L503.6005 #### [facility] [address] [place], [address] BUN/CRE Normal 10-20 [facility] Comment on above: Result Comment: Canc elled via OM: Order cancelled - Patient discharged Performed By: #### L 100.0100, L500.2500, L503.6005 #### [facility] [address] [place], [address] CA,Total Normal 8.5-10.1 [facility] Comment on above: Result Comment: Canc elled via OM: Order cancelled - Patient discharged Performed By: #### L 100.0100, L500.2500, L503.6005 #### [facility] [address] [place], [address] CL Normal 98-107 [facility] Comment on above: Result Comment: Canc elled via OM: Order cancelled - Patient discharged Performed By: #### L 100.0100, L500.2500, L503.6005 #### [facility] [address] [place], [address] CO2 Normal 21.0-32.0 [facility] Comment on above: Result Comment: Canc elled via OM: Order cancelled - Patient discharged Performed By: #### L 100.0100, L500.2500, L503.6005 #### [facility] [address] [place], [address] CREAT,SERUM Normal 0.55-1.02 [facility] Comment on above: Result Comment: Canc elled via OM: Order cancelled - Patient discharged Performed By: #### L 100.0100, L500.2500, L503.6005 #### [facility] [address] [place], [address] EST GFR Normal >60 [facility] Comment on above: Result Comment: Canc elled via OM: Order cancelled - Patient discharged Performed By: #### L 100.0100, L500.2500, L503.6005 #### [facility] [address] [place], [address] EST GFR - AA Normal >60 [facility] Comment on above: Result Comment: Canc elled via OM: Order cancelled - Patient discharged Performed By: #### L 100.0100, L500.2500, L503.6005 #### [facility] [address] [place], [address] GAP Normal 5-15 [facility] Comment on above: Result Comment: Canc elled via OM: Order cancelled - Patient discharged Performed By: #### L 100.0100, L500.2500, L503.6005 #### [facility] [address] [place], [address] GLU Normal 74-106 [facility] Comment on above: Result Comment: Canc elled via OM: Order cancelled - Patient discharged Performed By: #### L 100.0100, L500.2500, L503.6005 #### [facility] [address] [place], [address] Potassium Normal 3.5-5.1 [facility] Comment on above: Result Comment: Canc elled via OM: Order cancelled - Patient discharged Performed By: #### L 100.0100, L500.2500, L503.6005 #### [facility] [address] [place], [address] Basic Metabolic Profile (BMP) Normal 136-145 [facility] Comment on above: Result Comment: Canc elled via OM: Order cancelled - Patient discharged Performed By: #### L 100.0100, L500.2500, L503.6005 #### [facility] [address] [place], [address] CBC W/Diff, Automatedon 11-0 Absolute Neut Normal 2.0-7.7 [facility] Comment on above: Result Comment: Canc elled via OM: Order cancelled - Patient discharged Performed By: #### L 100.0100, L500.2500, L503.6005 #### [facility] [address] [place], [address] HCT Normal 37-47 [facility] Comment on above: Result Comment: Canc elled via OM: Order cancelled - Patient discharged Performed By: #### L 100.0100, L500.2500, L503.6005 #### [facility] [address] [place], [address] HGB Normal 12.0-15.0 [facility] Comment on above: Result Comment: Canc elled via OM: Order cancelled - Patient discharged Performed By: #### L 100.0100, L500.2500, L503.6005 #### [facility] [address] [place], [address] MCH Normal 27.0-32.0 [facility] Comment on above: Result Comment: Canc elled via OM: Order cancelled - Patient discharged Performed By: #### L 100.0100, L500.2500, L503.6005 #### [facility] [address] [place], [address] MCHC Normal 32-36 [facility] Comment on above: Result Comment: Canc elled via OM: Order cancelled - Patient discharged Performed By: #### L 100.0100, L500.2500, L503.6005 #### [facility] [address] [place], [address] MCV Normal 81-99 [facility] Comment on above: Result Comment: Canc elled via OM: Order cancelled - Patient discharged Performed By: #### L 100.0100, L500.2500, L503.6005 #### [facility] [address] [place], [address] NEUT% Normal 47-70 [facility] Comment on above: Result Comment: Canc elled via OM: Order cancelled - Patient discharged Performed By: #### L 100.0100, L500.2500, L503.6005 #### [facility] [address] [place], [address] PLT Normal 150-450 [facility] Comment on above: Result Comment: Canc elled via OM: Order cancelled - Patient discharged Performed By: #### L 100.0100, L500.2500, L503.6005 #### [facility] [address] [place], [address] RBC Normal 4.2-5.4 [facility] Comment on above: Result Comment: Canc elled via OM: Order cancelled - Patient discharged Performed By: #### L 100.0100, L500.2500, L503.6005 #### [facility] [address] [place], [address] RDW CV Normal 11.6-14.6 [facility] Comment on above: Result Comment: Canc elled via OM: Order cancelled - Patient discharged Performed By: #### L 100.0100, L500.2500, L503.6005 #### [facility] [address] [place], [address] RDW SD Normal 35.1-43.9 [facility] Comment on above: Result Comment: Canc elled via OM: Order cancelled - Patient discharged Performed By: #### L 100.0100, L500.2500, L503.6005 #### [facility] [address] [place], [address] WBC Normal 4.4-11.0 [facility] Comment on above: Result Comment: Canc elled via OM: Order cancelled - Patient discharged Performed By: #### L 100.0100, L500.2500, L503.6005 #### [facility] [address] [place], [address] Basic Metabolic Profile (BMP )on 04-22-2024 BUN Normal 7-18 [facility] Comment on above: Result Comment: Canc elled via OM: Order cancelled - Patient discharged Performed By: #### L 100.0100, L500.2500, L503.6005 #### [facility] [address] [place], [address] BUN/CRE Normal 10-20 [facility] Comment on above: Result Comment: Canc elled via OM: Order cancelled - Patient discharged Performed By: #### L 100.0100, L500.2500, L503.6005 #### [facility] [address] [place], [address] CA,Total Normal 8.5-10.1 [facility] Comment on above: Result Comment: Canc elled via OM: Order cancelled - Patient discharged Performed By: #### L 100.0100, L500.2500, L503.6005 #### [facility] [address] [place], [address] CL Normal 98-107 [facility] Comment on above: Result Comment: Canc elled via OM: Order cancelled - Patient discharged Performed By: #### L 100.0100, L500.2500, L503.6005 #### [facility] [address] [place], [address] CO2 Normal 21.0-32.0 [facility] Comment on above: Result Comment: Canc elled via OM: Order cancelled - Patient discharged Performed By: #### L 100.0100, L500.2500, L503.6005 #### [facility] [address] [place], [address] CREAT,SERUM Normal 0.55-1.02 [facility] Comment on above: Result Comment: Canc elled via OM: Order cancelled - Patient discharged Performed By: #### L 100.0100, L500.2500, L503.6005 #### [facility] [address] [place], [address] EST GFR Normal >60 [facility] Comment on above: Result Comment: Canc elled via OM: Order cancelled - Patient discharged Performed By: #### L 100.0100, L500.2500, L503.6005 #### [facility] [address] [place], [address] EST GFR - AA Normal >60 [facility] Comment on above: Result Comment: Canc elled via OM: Order cancelled - Patient discharged Performed By: #### L 100.0100, L500.2500, L503.6005 #### [facility] [address] [place], [address] GAP Normal 5-15 [facility] Comment on above: Result Comment: Canc elled via OM: Order cancelled - Patient discharged Performed By: #### L 100.0100, L500.2500, L503.6005 #### [facility] [address] [place], [address] GLU Normal 74-106 [facility] Comment on above: Result Comment: Canc elled via OM: Order cancelled - Patient discharged Performed By: #### L 100.0100, L500.2500, L503.6005 #### [facility] [address] [place], [address] Potassium Normal 3.5-5.1 [facility] Comment on above: Result Comment: Canc elled via OM: Order cancelled - Patient discharged Performed By: #### L 100.0100, L500.2500, L503.6005 #### [facility] [address] [place], [address] Basic Metabolic Profile (BMP) Normal 136-145 [facility] Comment on above: Result Comment: Canc elled via OM: Order cancelled - Patient discharged Performed By: #### L 100.0100, L500.2500, L503.6005 #### [facility] [address] [place], [address] CBC W/Diff, Automatedon 11-0 Absolute Neut Normal 2.0-7.7 [facility] Comment on above: Result Comment: Canc elled via OM: Order cancelled - Patient discharged Performed By: #### L 100.0100, L500.2500, L503.6005 #### [facility] [address] [place], [address] HCT Normal 37-47 [facility] Comment on above: Result Comment: Canc elled via OM: Order cancelled - Patient discharged Performed By: #### L 100.0100, L500.2500, L503.6005 #### [facility] [address] [place], [address] HGB Normal 12.0-15.0 [facility] Comment on above: Result Comment: Canc elled via OM: Order cancelled - Patient discharged Performed By: #### L 100.0100, L500.2500, L503.6005 #### [facility] [address] [place], [address] MCH Normal 27.0-32.0 [facility] Comment on above: Result Comment: Canc elled via OM: Order cancelled - Patient discharged Performed By: #### L 100.0100, L500.2500, L503.6005 #### [facility] [address] [place], [address] MCHC Normal 32-36 [facility] Comment on above: Result Comment: Canc elled via OM: Order cancelled - Patient discharged Performed By: #### L 100.0100, L500.2500, L503.6005 #### [facility] [address] [place], [address] MCV Normal 81-99 [facility] Comment on above: Result Comment: Canc elled via OM: Order cancelled - Patient discharged Performed By: #### L 100.0100, L500.2500, L503.6005 #### [facility] [address] [place], [address] NEUT% Normal 47-70 [facility] Comment on above: Result Comment: Canc elled via OM: Order cancelled - Patient discharged Performed By: #### L 100.0100, L500.2500, L503.6005 #### [facility] [address] [place], [address] PLT Normal 150-450 [facility] Comment on above: Result Comment: Canc elled via OM: Order cancelled - Patient discharged Performed By: #### L 100.0100, L500.2500, L503.6005 #### [facility] [address] [place], [address] RBC Normal 4.2-5.4 [facility] Comment on above: Result Comment: Canc elled via OM: Order cancelled - Patient discharged Performed By: #### L 100.0100, L500.2500, L503.6005 #### [facility] [address] [place], [address] RDW CV Normal 11.6-14.6 [facility] Comment on above: Result Comment: Canc elled via OM: Order cancelled - Patient discharged Performed By: #### L 100.0100, L500.2500, L503.6005 #### [facility] [address] [place], [address] RDW SD Normal 35.1-43.9 [facility] Comment on above: Result Comment: Canc elled via OM: Order cancelled - Patient discharged Performed By: #### L 100.0100, L500.2500, L503.6005 #### [facility] [address] [place], [address] WBC Normal 4.4-11.0 [facility] Comment on above: Result Comment: Canc elled via OM: Order cancelled - Patient discharged Performed By: #### L 100.0100, L500.2500, L503.6005 #### [facility] [address] [place], [address] Basic Metabolic Profile (BMP )on 04-21-2024 BUN Normal 7-18 [facility] Comment on above: Result Comment: Canc elled via OM: Order cancelled - Patient discharged Performed By: #### L 100.0100, L500.2500, L503.6005 #### [facility] [address] [place], [address] BUN/CRE Normal 10-20 [facility] Comment on above: Result Comment: Canc elled via OM: Order cancelled - Patient discharged Performed By: #### L 100.0100, L500.2500, L503.6005 #### [facility] [address] [place], [address] CA,Total Normal 8.5-10.1 [facility] Comment on above: Result Comment: Canc elled via OM: Order cancelled - Patient discharged Performed By: #### L 100.0100, L500.2500, L503.6005 #### [facility] [address] [place], [address] CL Normal 98-107 [facility] Comment on above: Result Comment: Canc elled via OM: Order cancelled - Patient discharged Performed By: #### L 100.0100, L500.2500, L503.6005 #### [facility] [address] [place], [address] CO2 Normal 21.0-32.0 [facility] Comment on above: Result Comment: Canc elled via OM: Order cancelled - Patient discharged Performed By: #### L 100.0100, L500.2500, L503.6005 #### [facility] [address] [place], [address] CREAT,SERUM Normal 0.55-1.02 [facility] Comment on above: Result Comment: Canc elled via OM: Order cancelled - Patient discharged Performed By: #### L 100.0100, L500.2500, L503.6005 #### [facility] [address] [place], [address] EST GFR Normal >60 [facility] Comment on above: Result Comment: Canc elled via OM: Order cancelled - Patient discharged Performed By: #### L 100.0100, L500.2500, L503.6005 #### [facility] [address] [place], [address] EST GFR - AA Normal >60 [facility] Comment on above: Result Comment: Canc elled via OM: Order cancelled - Patient discharged Performed By: #### L 100.0100, L500.2500, L503.6005 #### [facility] [address] [place], [address] GAP Normal 5-15 [facility] Comment on above: Result Comment: Canc elled via OM: Order cancelled - Patient discharged Performed By: #### L 100.0100, L500.2500, L503.6005 #### [facility] [address] [place], [address] GLU Normal 74-106 [facility] Comment on above: Result Comment: Canc elled via OM: Order cancelled - Patient discharged Performed By: #### L 100.0100, L500.2500, L503.6005 #### [facility] [address] [place], [address] Potassium Normal 3.5-5.1 [facility] Comment on above: Result Comment: Canc elled via OM: Order cancelled - Patient discharged Performed By: #### L 100.0100, L500.2500, L503.6005 #### [facility] [address] [place], [address] Basic Metabolic Profile (BMP) Normal 136-145 [facility] Comment on above: Result Comment: Canc elled via OM: Order cancelled - Patient discharged Performed By: #### L 100.0100, L500.2500, L503.6005 #### [facility] [address] [place], [address] CBC W/Diff, Automatedon 10-3 Absolute Neut Normal 2.0-7.7 [facility] Comment on above: Result Comment: Canc elled via OM: Order cancelled - Patient discharged Performed By: #### L 100.0100, L500.2500, L503.6005 #### [facility] [address] [place], [address] HCT Normal 37-47 [facility] Comment on above: Result Comment: Canc elled via OM: Order cancelled - Patient discharged Performed By: #### L 100.0100, L500.2500, L503.6005 #### [facility] [address] [place], [address] HGB Normal 12.0-15.0 [facility] Comment on above: Result Comment: Canc elled via OM: Order cancelled - Patient discharged Performed By: #### L 100.0100, L500.2500, L503.6005 #### [facility] [address] [place], [address] MCH Normal 27.0-32.0 [facility] Comment on above: Result Comment: Canc elled via OM: Order cancelled - Patient discharged Performed By: #### L 100.0100, L500.2500, L503.6005 #### [facility] [address] [place], [address] MCHC Normal 32-36 [facility] Comment on above: Result Comment: Canc elled via OM: Order cancelled - Patient discharged Performed By: #### L 100.0100, L500.2500, L503.6005 #### [facility] [address] [place], [address] MCV Normal 81-99 [facility] Comment on above: Result Comment: Canc elled via OM: Order cancelled - Patient discharged Performed By: #### L 100.0100, L500.2500, L503.6005 #### [facility] [address] [place], [address] NEUT% Normal 47-70 [facility] Comment on above: Result Comment: Canc elled via OM: Order cancelled - Patient discharged Performed By: #### L 100.0100, L500.2500, L503.6005 #### [facility] [address] [place], [address] PLT Normal 150-450 [facility] Comment on above: Result Comment: Canc elled via OM: Order cancelled - Patient discharged Performed By: #### L 100.0100, L500.2500, L503.6005 #### [facility] [address] [place], [address] RBC Normal 4.2-5.4 [facility] Comment on above: Result Comment: Canc elled via OM: Order cancelled - Patient discharged Performed By: #### L 100.0100, L500.2500, L503.6005 #### [facility] [address] [place], [address] RDW CV Normal 11.6-14.6 [facility] Comment on above: Result Comment: Canc elled via OM: Order cancelled - Patient discharged Performed By: #### L 100.0100, L500.2500, L503.6005 #### [facility] [address] [place], [address] RDW SD Normal 35.1-43.9 [facility] Comment on above: Result Comment: Canc elled via OM: Order cancelled - Patient discharged Performed By: #### L 100.0100, L500.2500, L503.6005 #### [facility] [address] [place], [address] WBC Normal 4.4-11.0 [facility] Comment on above: Result Comment: Canc elled via OM: Order cancelled - Patient discharged Performed By: #### L 100.0100, L500.2500, L503.6005 #### [facility] [address] [place], [address] MYLENE Comprehensive Panelon 10 -30-2024 MYLENE TABLE Comment Normal . [facility] Comment on above: Result Comment: Auto antibody Disease Association Condition Frequency --------- Antinuclear Antibody, SLE, mixed connective Direct (MYLENE-D) tissue diseases --------- dsDNA SLE 40 - 60% --------- Chromatin Drug induced SLE 90% SLE 48 - 97% --------- SSA (Ro) SLE 25 - 35% Sjogren's Syndrome 40 - 70% Lupus 100% --------- SSB (La) SLE 10% Sjogren's Syndrome 30% --------- Sm (anti-Enriquez) SLE 15 - 30% --------- DATABASE DBA Mixed Connective Tissue Disease 95% (U1 nRNP, SLE 30 - 50% anti-ribonucleoprotein) Polymyositis and/or Dermatomyositis 20% --------- Scl-70 (antiDNA Scleroderma (diffuse) 20 - 35% topoisomerase) Crest 13% --------- Liliana-1 Polymyositis and/or Dermatomyositis 20 - 40% --------- Centromere B Scleroderma - Crest variant 80% Performed at: [address] [id number] Trials Manager: Jeferson Reynolds PhD, Phone: [phone] Performed By: #### L 2726.2626 ####[facility] [address] [place], [address] ANTI-CENT B AB <0.2 Normal 0.0-0.9 [facility] Comment on above: Performed By: #### L 9920.9720 ####[facility] [address] [place], [address] ANTI-DNA (DS)AB 1 IU/mL Normal 0-9 [facility] Comment on above: Result Comment: Nega tive <5 Equivocal 5 - 9 Positive >9 Performed By: #### L 3100.5440 ####[facility] [address] [place], [address] ANTI-LILIANA-1 <0.2 Normal 0.0-0.9 [facility] Comment on above: Performed By: #### L 3100.5440 ####[facility] [address] [place], [address] ANTI-SS-A < 0.2 Normal 0.0-0.9 [facility] Comment on above: Performed By: #### L 3100.5440 ####[facility] [address] [place], [address] ANTI-SS-B < 0.2 Normal 0.0-0.9 [facility] Comment on above: Performed By: #### L 3100.5440 ####[facility] [address] [place], [address] ANTICHROMATIN <0.2 Normal 0.0-0.9 [facility] Comment on above: Performed By: #### L 3100.5440 ####[facility] [address] [place], [address] ANTISCLERODERM <0.2 Normal 0.0-0.9 [facility] Comment on above: Performed By: #### L 3100.5440 ####[facility] [address] [place], [address] DATABASE DBA Ab <0.2 Normal 0.0-0.9 [facility] Comment on above: Performed By: #### L 3100.5440 ####[facility] [address] [place], [address] ENRIQUEZ Ab <0.2 Normal 0.0-0.9 [facility] Comment on above: Performed By: #### L 3100.5440 ####[facility] [address] [place], [address] ANCAon 10-30-2024 Atypical pANCA <1:20 Normal Neg:<1:20 [facility] Comment on above: Result Comment: The atypical pANCA pattern has been observed in a significant percentage of patients with ulcerative colitis, primary sclerosing cholangitis and autoimmune hepatitis. Performed at: [address] [id number] Trials Manager: Jeferson Reynolds PhD, Phone: [phone] Performed By: #### L 100.0100, L500.2500, L503.6005 #### [facility] [address] [place], [address] Cytoplasmic Ab <1:20 Normal Neg:<1:20 [facility] Comment on above: Performed By: #### L 100.0100, L500.2500, L503.6005 #### [facility] [address] [place], [address] Perinuclear Ab. <1:20 Normal Neg:<1:20 [facility] Comment on above: Result Comment: The presence of positive fluorescence exhibiting P-ANCA or C-ANCA patterns alone is not specific for the diagnosis of Rolando's Granulomatosis (WG) or microscopic polyangiitis. Decisions about treatment should not be based solely on ANCA IFA results. The [employer] Consensus recommends follow up testing of positive sera with both IL- 3 and MPO-ANCA enzyme immunoassays. As many as 5% serum samples are positive only by EIA. Ref. AM J Clin Pathol 1999;111:507-513. Performed By: #### L 100.0100, L500.2500, L503.6005 #### [facility] [address] [place], [address] Basic Metabolic Profile (BMP )on 04-20-2024 BUN/CRE 8.4 RATIO Low 04-10 [facility] Comment on above: Performed By: #### L 100.0100, L500.2500 ####[facility] [address] [place], [address] CA,Total 8.6 mg/dL Normal 8.5-10.1 [facility] Comment on above: Performed By: #### L 100.0100, L500.2500 ####[facility] [address] [place], [address] Chloride [Moles/Vol] 113 mmol/L High 98-107 [facility] Comment on above: Performed By: #### L 100.0100, L500.2500 ####[facility] [address] [place], [address] CO2 [Moles/Vol] 23.0 mmol/L Normal 21.0-32.0 [facility] Comment on above: Performed By: #### L 100.0100, L500.2500 ####[facility] [address] [place], [address] Creatinine [Mass/Vol] 0.72 mg/dL Normal 0.55-1.02 [facility] Comment on above: Result Comment: The validity of the calculated GFR GFRAA in patients over 70 years has not been determined. Clinical correlation is essential. Performed By: #### L 100.0100, L500.2500 ####[facility] [address] [place], [address] ECRCL 91.35 ml/min Normal [facility] Comment on above: Performed By: #### L 100.0100, L500.2500 ####[facility] [address] [place], [address] EST GFR - AA 109 mL/min Normal >60 [facility] Comment on above: Result Comment: Afri can [place] GFR Calc Performed By: #### L 100.0100, L500.2500 ####[facility] [address] [place], [address] GAP 6 Normal 5-15 [facility] Comment on above: Performed By: #### L 100.0100, L500.2500 ####[facility] [address] [place], [address] GFR/1.73 sq M.predicted among non-blacks MDRD (S/P/Bld) [Vol rate/Area] 90 mL/min/{1.73_m2} Normal >60 [facility] Comment on above: Result Comment: Non- GFR Calc Performed By: #### L 100.0100, L500.2500 ####[facility] [address] [place], [address] Glucose [Mass/Vol] 84 mg/dL Normal 74-106 [facility] Comment on above: Performed By: #### L 100.0100, L500.2500 ####[facility] [address] [place], [address] Potassium [Moles/Vol] 3.2 mmol/L Low 3.5-5.1 [facility] Comment on above: Performed By: #### L 100.0100, L500.2500 ####[facility] [address] [place], [address] Sodium [Moles/Vol] 142 mmol/L Normal 136-145 [facility] Comment on above: Performed By: #### L 100.0100, L500.2500 ####[facility] [address] [place], [address] Urea nitrogen [Mass/Vol] 6 mg/dL Low 7-18 [facility] Comment on above: Performed By: #### L 100.0100, L500.2500 ####[facility] [address] [place], [address] CBC W/Diff, Automatedon 10-3 0-2024 Absolute Lymph 2.12 X10 3/uL Normal 0.83-4.51 [facility] Comment on above: Performed By: #### L 100.0100, L500.2500 ####[facility] [address] [place], [address] Absolute Neut 4.5 X10 3/uL Normal 2.0-7.7 [facility] Comment on above: Performed By: #### L 100.0100, L500.2500 ####[facility] [address] [place], [address] Basophils/100 WBC (Bld) 0.4 % Normal 0-1 [facility] Comment on above: Performed By: #### L 100.0100, L500.2500 ####[facility] [address] [place], [address] Eosinophils/100 WBC (Bld) 0.6 % Normal 0-5 [facility] Comment on above: Performed By: #### L 100.0100, L500.2500 ####[facility] [address] [place], [address] Erythrocyte distribution width (RBC) [Ratio] 12.2 % Normal 11.6-14.6 [facility] Comment on above: Performed By: #### L 100.0100, L500.2500 ####[facility] [address] [place], [address] Hematocrit (Bld) [Volume fraction] 34.9 % Low 37-47 [facility] Comment on above: Performed By: #### L 100.0100, L500.2500 ####[facility] [address] [place], [address] Hemoglobin (Bld) [Mass/Vol] 11.6 g/dL Low 12.0-15.0 [facility] Comment on above: Performed By: #### L 100.0100, L500.2500 ####[facility] [address] [place], [address] IG% 0.300 Normal 0.0-0.9 [facility] Comment on above: Result Comment: IG% - Immature Granulocytes (promyelocytes, myelocytes and metamyelocytes) > 1% indicates that a LEFT SHIFT is Present. Performed By: #### L 100.0100, L500.2500 ####[facility] [address] [place], [address] Lymphocytes/100 WBC (Bld) 29.4 % Normal 19-41 [facility] Comment on above: Performed By: #### L 100.0100, L500.2500 ####[facility] [address] [place], [address] MCH (RBC) [Entitic mass] 28.2 pg Normal 27.0-32.0 [facility] Comment on above: Performed By: #### L 100.0100, L500.2500 ####[facility] [address] [place], [address] MCHC (RBC) [Mass/Vol] 33.2 g/dL Normal 32-36 [facility] Comment on above: Performed By: #### L 100.0100, L500.2500 ####[facility] [address] [place], [address] MCV (RBC) [Entitic vol] 84.9 fL Normal 81-99 [facility] Comment on above: Performed By: #### L 100.0100, L500.2500 ####[facility] [address] [place], [address] Monocytes/100 WBC (Bld) 6.7 % Normal 0-10 [facility] Comment on above: Performed By: #### L 100.0100, L500.2500 ####[facility] [address] [place], [address] Neutrophils/100 WBC (Bld) 62.6 % Normal 47-70 [facility] Comment on above: Performed By: #### L 100.0100, L500.2500 ####[facility] [address] [place], [address] Nucleated RBC (Bld) [#/Vol] 0 10*3/uL Normal 0-5 [facility] Comment on above: Performed By: #### L 100.0100, L500.2500 ####[facility] [address] [place], [address] Platelet mean volume (Bld) [Entitic vol] 9.1 fL Normal 6.2-12.0 [facility] Comment on above: Performed By: #### L 100.0100, L500.2500 ####[facility] [address] [place], [address] Platelets (Bld) [#/Vol] 300 10*3/uL Normal 150-450 [facility] Comment on above: Performed By: #### L 100.0100, L500.2500 ####[facility] [address] [place], [address] RBC (Bld) [#/Vol] 4.11 10*6/uL Low 4.2-5.4 [facility] Comment on above: Performed By: #### L 100.0100, L500.2500 ####[facility] [address] [place], [address] RDW SD 37.7 fl Normal 35.1-43.9 [facility] Comment on above: Performed By: #### L 100.0100, L500.2500 ####[facility] [address] [place], [address] WBC (Bld) [#/Vol] 7.2 10*3/uL Normal 4.4-11.0 [facility] Comment on above: Performed By: #### L 100.0100, L500.2500 ####[facility] [address] [place], [address] Discharge Instructionon 10-3 Discharge Instruction [facility] Medical Records Department [address] [place] [address] Instructions for Home/Discharge Instructions 04/20/24 09 MR#: [id number] Acct: [id number] Name: FRANK VENTURA Rep #: [id number] : 1970 53 From: Karissa Hernandez MD PCP: Dr. Juan Carolina MD Status:ADM IN Discharge Instructions Diet Discharge Diet: Low fat / Low cholesterol Activity Discharge Activity: Return to Normal Activity Weight Bearing Status: Weight bearing as tolerated Dressing / Incision Call your doctor if you observe: Fever of 101 or Higher, Shortness of breath, Dizziness, Swelling in the ankles, Chest pain and Uncontrolled pain Follow Up Care Test Results: Test results from this visit will be discussed in further detail at your follow-up appointment, if applicable. Discharge Plan Admission Admit Date/Time: 04/18/24 11:20 Primary Reason for Your Visit: acute colitis Attending Provider: Karissa Hernandez Primary Care Provider: Juan Carolina Instructions Patient Instructions: ED Understanding Colitis Discharge Orders/Prescriptions Prescriptions: New ciprofloxacin HCl 500 mg tablet 500 mg PO BID Qty: 10 0RF metronidazole 500 mg tablet 500 mg PO Q8H Qty: 15 0RF Continued hyoscyamine sulfate 0.125 mg tablet,disintegrating 0.125 mg PO BID-QID PRN (Reason: abdominal pain) Qty: 120 3RF omeprazole 40 mg capsule,delayed release(DR/EC) 40 mg PO DAILY Qty: 90 3RF semaglutide (weight loss) 1.7 mg/0.75 mL pen injector 1.7 mg subcut Q7D Referrals / Follow Up: Jose Rodriguez DO [Med Staff - Active Staff] - Within 2 Weeks Juan Carolina MD [Primary Care Provider] - Within 1 Week Care Physician,No Primary [Non-Staff] - Disposition Disposition (needs filled in before D/C Order can be placed): Home, Self Care 04/20/2441 Karissa Hernandez MD CC: Dr. Juan Carolina MD Signed Normal [facility] Basic Metabolic Profile (BMP )on 04-19-2024 BUN/CRE 8.5 RATIO Low 04-10 [facility] Comment on above: Performed By: #### L 100.0100, L500.2500, L503.6005 #### [facility] [address] [place], [address] CA,Total 8.6 mg/dL Normal 8.5-10.1 [facility] Comment on above: Performed By: #### L 100.0100, L500.2500, L503.6005 #### [facility] [address] [place], [address] Chloride [Moles/Vol] 111 mmol/L High 98-107 [facility] Comment on above: Performed By: #### L 100.0100, L500.2500, L503.6005 #### [facility] [address] [place], [address] CO2 [Moles/Vol] 26.0 mmol/L Normal 21.0-32.0 [facility] Comment on above: Performed By: #### L 100.0100, L500.2500, L503.6005 #### [facility] [address] [place], [address] Creatinine [Mass/Vol] 0.83 mg/dL Normal 0.55-1.02 [facility] Comment on above: Result Comment: The validity of the calculated GFR GFRAA in patients over 70 years has not been determined. Clinical correlation is essential. Performed By: #### L 100.0100, L500.2500, L503.6005 #### [facility] [address] [place], [address] ECRCL 79.25 ml/min Normal [facility] Comment on above: Performed By: #### L 100.0100, L500.2500, L503.6005 #### [facility] [address] [place], [address] EST GFR - AA 93 mL/min Normal >60 [facility] Comment on above: Result Comment: Afri can [place] GFR Calc Performed By: #### L 100.0100, L500.2500, L503.6005 #### [facility] [address] [place], [address] GAP 5 Normal 5-15 [facility] Comment on above: Performed By: #### L 100.0100, L500.2500, L503.6005 #### [facility] [address] [place], [address] GFR/1.73 sq M.predicted among non-blacks MDRD (S/P/Bld) [Vol rate/Area] 77 mL/min/{1.73_m2} Normal >60 [facility] Comment on above: Result Comment: Non- GFR Calc Performed By: #### L 100.0100, L500.2500, L503.6005 #### [facility] [address] [place], [address] Glucose [Mass/Vol] 93 mg/dL Normal 74-106 [facility] Comment on above: Performed By: #### L 100.0100, L500.2500, L503.6005 #### [facility] [address] [place], [address] Potassium [Moles/Vol] 3.5 mmol/L Normal 3.5-5.1 [facility] Comment on above: Performed By: #### L 100.0100, L500.2500, L503.6005 #### [facility] [address] [place], [address] Sodium [Moles/Vol] 142 mmol/L Normal 136-145 [facility] Comment on above: Performed By: #### L 100.0100, L500.2500, L503.6005 #### [facility] [address] [place], [address] Urea nitrogen [Mass/Vol] 7 mg/dL Normal 7-18 [facility] Comment on above: Performed By: #### L 100.0100, L500.2500, L503.6005 #### [facility] [address] [place], [address] CBC W/Diff, Automatedon 10-2 Absolute Lymph 1.83 X10 3/uL Normal 0.83-4.51 [facility] [facility] Comment on above: Performed By: #### L 100.0100, L500.2500, L503.6005 #### [facility] [address] [place], [address] Absolute Neut 6.0 X10 3/uL Normal 2.0-7.7 [facility] Comment on above: Performed By: #### L 100.0100, L500.2500, L503.6005 #### [facility] [address] [place], [address] Basophils/100 WBC (Bld) 0.5 % Normal 0-1 [facility] Comment on above: Performed By: #### L 100.0100, L500.2500, L503.6005 #### [facility] [address] [place], [address] Eosinophils/100 WBC (Bld) 0.7 % Normal 0-5 [facility] Comment on above: Performed By: #### L 100.0100, L500.2500, L503.6005 #### [facility] [address] [place], [address] Erythrocyte distribution width (RBC) [Ratio] 12.6 % Normal 11.6-14.6 [facility] Comment on above: Performed By: #### L 100.0100, L500.2500, L503.6005 #### [facility] [address] [place], [address] Hematocrit (Bld) [Volume fraction] 40.4 % Normal 37-47 [facility] Comment on above: Performed By: #### L 100.0100, L500.2500, L503.6005 #### [facility] [address] [place], [address] Hemoglobin (Bld) [Mass/Vol] 13.3 g/dL Normal 12.0-15.0 [facility] Comment on above: Performed By: #### L 100.0100, L500.2500, L503.6005 #### [facility] [address] [place], [address] IG% 0.200 Normal 0.0-0.9 [facility] Comment on above: Result Comment: IG% - Immature Granulocytes (promyelocytes, myelocytes and metamyelocytes) > 1% indicates that a LEFT SHIFT is Present. Performed By: #### L 100.0100, L500.2500, L503.6005 #### [facility] [address] [place], [address] Lymphocytes/100 WBC (Bld) 21.6 % Normal 19-41 [facility] Comment on above: Performed By: #### L 100.0100, L500.2500, L503.6005 #### [facility] [address] [place], [address] MCH (RBC) [Entitic mass] 28.4 pg Normal 27.0-32.0 [facility] Comment on above: Performed By: #### L 100.0100, L500.2500, L503.6005 #### [facility] [address] [place], [address] MCHC (RBC) [Mass/Vol] 32.9 g/dL Normal 32-36 [facility] Comment on above: Performed By: #### L 100.0100, L500.2500, L503.6005 #### [facility] [address] [place], [address] MCV (RBC) [Entitic vol] 86.3 fL Normal 81-99 [facility] Comment on above: Performed By: #### L 100.0100, L500.2500, L503.6005 #### [facility] [address] [place], [address] Monocytes/100 WBC (Bld) 6.0 % Normal 0-10 [facility] Comment on above: Performed By: #### L 100.0100, L500.2500, L503.6005 #### [facility] [address] [place], [address] Neutrophils/100 WBC (Bld) 71.0 % High 47-70 [facility] Comment on above: Performed By: #### L 100.0100, L500.2500, L503.6005 #### [facility] [address] [place], [address] Nucleated RBC (Bld) [#/Vol] 0 10*3/uL Normal 0-5 [facility] Comment on above: Performed By: #### L 100.0100, L500.2500, L503.6005 #### [facility] [address] [place], [address] Platelet mean volume (Bld) [Entitic vol] 8.7 fL Normal 6.2-12.0 [facility] Comment on above: Performed By: #### L 100.0100, L500.2500, L503.6005 #### [facility] [address] [place], [address] Platelets (Bld) [#/Vol] 352 10*3/uL Normal 150-450 [facility] Comment on above: Performed By: #### L 100.0100, L500.2500, L503.6005 #### [facility] [address] [place], [address] RBC (Bld) [#/Vol] 4.68 10*6/uL Normal 4.2-5.4 [facility] Comment on above: Performed By: #### L 100.0100, L500.2500, L503.6005 #### [facility] [address] [place], [address] RDW SD 39.6 fl Normal 35.1-43.9 [facility] Comment on above: Performed By: #### L 100.0100, L500.2500, L503.6005 #### [facility] [address] [place], [address] WBC (Bld) [#/Vol] 8.5 10*3/uL Normal 4.4-11.0 [facility] Comment on above: Performed By: #### L 100.0100, L500.2500, L503.6005 #### [facility] [address] [place], [address] CORTISOL SERUMon 04-19-2024 CORTISOL 36.60 ug/dL High 3.44-22.45 [facility] Comment on above: Order Comment: 60M Result Comment: Adul t (AM) 5.27 - 22.45 ug/dL Adult (PM) 3.44 - 16.76 ug/dL Performed By: #### L 503.6005 #### [facility] [address] [place], [address] CORTISOL 10.50 ug/dL Normal 3.44-22.45 [facility] Comment on above: Order Comment: Y Result Comment: Adul t (AM) 5.27 - 22.45 ug/dL Adult (PM) 3.44 - 16.76 ug/dL Performed By: #### L 100.0100, L500.2500, L503.6005 #### [facility] [address] [place], [address] Colonoscopy Reporton 024 Colonoscopy Report [facility] Medical Records Department [address] [address] Colonoscopy Report MR#: [id number] Acct: [id number] Name: FRANK VENTURA Rep #: [id number] : 1970 53 From: Jose Rodriguez DO PCP: Dr. Juan Carolina MD Status:ADM IN Patient Name: Frank Ventura Procedure Date: 04/19/2024 3:22 PM Date of : 1970 Age: 53 Procedure: Colonoscopy Indications: Hematochezia Providers: Jose Rodriguez DO Medicines: Monitored Anesthesia Care Patient Profile: This is a 53 year old female. Refer to note in patient chart for documentation of history and physical. Last Colonoscopy: within the past 3 years. Complications: No immediate complications. Procedure: Pre-Anesthesia Assessment: - Prior to the procedure, a History and Physical was performed, and patient medications and allergies were reviewed. The patient is competent. The risks and benefits of the procedure and the sedation options and risks were discussed with the patient. All questions were answered and informed consent was obtained. Patient identification and proposed procedure were verified by the physician in the pre-procedure area. Mental Status Examination: alert and oriented. Airway Examination: normal oropharyngeal airway and neck mobility. Respiratory Examination: clear to auscultation. CV Examination: normal. Prophylactic Antibiotics: The patient does not require prophylactic antibiotics. Prior Anticoagulants: The patient has taken no anticoagulant or antiplatelet agents except for NSAID medication. ASA Grade Assessment: II - A patient with mild systemic disease. After reviewing the risks and benefits, the patient was deemed in satisfactory condition to undergo the procedure. The anesthesia plan was to use moderate sedation / analgesia (conscious sedation). Immediately prior to administration of medications, the patient was re-assessed for adequacy to receive sedatives. The heart rate, respiratory rate, oxygen saturations, blood pressure, adequacy of pulmonary ventilation, and response to care were monitored throughout the procedure. The physical status of the patient was re-assessed after the procedure. After I obtained informed consent, the scope was passed under direct vision. Throughout the procedure, the patient's blood pressure, pulse, and oxygen saturations were monitored continuously. The colonoscope was introduced through the anus and advanced to the terminal ileum. The colonoscopy was performed without difficulty. The patient tolerated the procedure well. The quality of the bowel preparation was good. Scope In: 3:35:34 PM Scope Out: 3:54:24 PM Total Procedure Duration Time 0 hours 18 minutes 50 seconds Findings: The perianal and digital rectal examinations were normal. Segmental moderate inflammation characterized by erosions, erythema and friability was found in the sigmoid colon, in the descending colon, at the splenic flexure and in the transverse colon. Biopsies were taken with a cold forceps for histology. Verification of patient identification for the specimen was done. Estimated blood loss was minimal. A patchy area of the terminal ileum was congested. Biopsies were taken with a cold forceps for histology. Verification of patient identification for the specimen was done. Estimated blood loss was minimal. Impression: - Segmental moderate inflammation was found in the sigmoid colon, in the descending colon, at the splenic flexure and in the transverse colon secondary to colitis. Biopsied. - Congested mucosa in the terminal ileum. Biopsied. Recommendation: - Discharge patient to home. - Resume previous diet. - Continue present medications. - Await pathology results. - Repeat colonoscopy in 5 years for surveillance. Procedure Code(s): --- Professional --- 13163, Colonoscopy, flexible; with biopsy, single or multiple CPT copyright 2021 [employer]. All rights reserved. The codes documented in this report are preliminary and upon hcc coders review may be revised to meet current compliance requirements. Jose Rodriguez DO 04/19/2024 3:58:59 PM This report has been signed electronically. Number of Addenda: 0 Note Initiated On: 04/19/2024 3:22 PM 04/19/24 1559 Date Jose Rodriguez DO Cosigner Signature: Date (if indicated) CC: Dr. Juan Carolina MD; Jose Rodriguez DO Date Dictated: 04/19/24 1522 Date Transcribed: [employer]: ZOEY Signed [facility] MR/POSTOP.[facility] 04-19-2024 [facility] Medical Records Department [address] [place] [address] Anesthesia Postop Eval I 04/19/24 1606 MR#: [id number] Acct: [id number] Name: FRANK VENTURA Rep #: [id number] : 1970 53 From: Jonah Nugent PCP: Dr. Juan Carolina MD Status:ADM IN Y Race: C Location: [place] [address] Anesthesia: Postop Eval I Current Vital Signs Temperature: 97 F Pulse Rate: 81 Blood Pressure: 98/61 Respiratory Rate: 16 Pulse Ox: 97 Oxygen Delivery Method: Room Air Assessment Airway patent: Yes Spontaneous unlabored respirations: Yes Mental status: Asleep nausea: No Vomiting: No Anesthesia Complication: No Fluid Hydration Crystalloid volume administer (ml): 40 Total IV fluid infused: 40 Progress Note Anesthesia document: Postop Eval 1 completed: Yes 04/20/24710 Date Jonah Nugent 04/19/24 1621 [facility]: Date Jaleel Contreras MD CC: Signed [facility]/[id number] 04-19-2024 [facility] Medical Records Department [address] [place] [address] Anesthesia Postop Eval II 04/19/24 1614 MR#: [id number] Acct: [id number] Name: FRANK VENTURA Rep #: [id number] : 1970 53 From: Jaleel Contreras MD PCP: Dr. Juan Carolina MD Status:ADM IN Y Race: C Location: [place] [address]-1 Anesthesia Postop Eval I Sum Postop Eval Completion status Anesthesia document: Postop Eval 1 completed: Yes Anesthesia Postop Eval I Summary Anesthesia Postop Eval I Summary: Anesthesia Postop Eval I: Assessment Summary Airway patent Yes 04/19/24 16:07 [email or web address] Spontaneous unlabored Yes 04/19/24 16:07 [email or web address] respirations Mental status Asleep 04/19/24 16:07 [email or web address] nausea No 04/19/24 16:07 [email or web address] Vomiting No 04/19/24 16:07 [email or web address] Anesthesia Postop Eval I: Fluid Summary Crystalloid volume administer 40 04/19/24 16:07 [email or web address] (ml) Colloids volume administered ( ml) Blood Product volume administered (ml) Total IV fluid infused 40 04/19/24 16:07 [email or web address] Anesthesia Postop Eval I: Summary Notes Anesthesia Complication No 04/19/24 16:07 [email or web address] Anesthesia Complication Comment: Post-operative progress note Anesthesia: Postop Eval II Evaluation Mental status: Awake Pain Level: 0 nausea: No Vomiting: No 04/19/24 1614 Date Jaleel Contreras MD Cosigner Signature: Date CC: Signed Normal [facility] Surgery Specimen Level Fede 04-19-2024 Surgery Specimen Level IV Patient Age/Sex Location Account Attending Physician LORENZOFRANK 53/F MS3 [id number] Dr. Karissa Hernandez MD Specimen: [id number] Received: 04/19/24 Status: VIKAS Deluca Num: [id number] Spec Type: COLON BX Subm Dr: DO ZEUS Millan OPERATION: Colonoscopy with biopsy PRE-OP DIAGNOSIS: Lower GI bleeding TISSUE SUBMITTED: A- Terminal ileum biopsy, B- Transverse colon biopsy, C- Rectum biopsy MICROSCOPIC DIAGNOSIS A. Terminal ileum, biopsy: Fragments of small intestinal mucosa, no pathologic diagnosis. B. Transverse colon, biopsy: Fragments of colonic mucosa with congestion, hemorrhage and focal changes suggestive of ischemic colitis. C. Rectum, biopsy: Fragments of colonic mucosa, no pathologic diagnosis. See comment. 04/21/2024 COMMENT Correlation with clinical, endoscopic findings and appropriate follow up are necessary. MICROSCOPIC DESCRIPTION Slides are reviewed. GROSS DESCRIPTION A. Received in fixative is one container labeled with the patient's name and designated Terminal ileum biopsy. The specimen consists of two irregular fragments of light jones soft tissue that in aggregate measure 0.8 x 0.3 x 0.1 cm. The specimen is totally submitted in one cassette. B. Received in fixative is one container labeled with the patient's name and designated Transverse colon biopsy. The specimen consists of multiple irregular fragments of light jones soft tissue that in aggregate measure 1.0 x 0.3 x 0.1 cm. The specimen is totally submitted in one cassette. C. Received in fixative is one container labeled with the patient's name and designated "Rectum biopsy." The specimen consists of multiple irregular fragments of light jones soft tissue that in aggregate measure 0.8 x 0.3 x 0.1 cm. The specimen is totally submitted in one cassette. 04/20/2024 TC:5 CPT:28792t2 Patient Age/Sex Location Account Attending Physician FRANK VENTURA 53/F MS3 [id number] Dr. Karissa Hernandez MD Signed (signature on file) Dr. Dick Jay MD 04/21/24 1335 Normal [facility] Comment on above: Performed By: #### P SUIV ####[facility] [address] [place], [place], [address] Abdomen/Pelvis W IV Cont ONL Yon 04-18-2024 Abdomen/Pelvis W IV Cont ONLY [facility] Imaging Services [address] [place] [address] Abdomen/Pelvis W IV Cont ONLY MR#: [id number] Acct: [id number] Name: FRANK VENTURA Rep #: [id number] : 1970 F 53 From: Chong mayo MD PCP: Dr. Juan Carolina MD Status: REG ER Study: Abdomen/Pelvis W IV Cont ONLY Date of Exam: Exam# [id number] Ordering Dr: Tyree Marie DO [id number] STUDY: CT ABDOMEN AND PELVIS WITH CONTRAST REASON FOR EXAM: Female, 53 years old. LLQ abdominal pain with rectal bleeding. RADIATION DOSAGE (If Supplied By Facility): CTDIvol = ( 13.21 ) mGy, DLP = ( 963.94 ) mGycm TECHNIQUE: Transaxial images were obtained from the dome of the diaphragm to the symphysis pubis without oral contrast. IV 100mL Isovue-300 was administered. Sagittal and coronal images were reconstructed. Individualized dose optimization techniques were used for this CT. COMPARISON: Comparison is made with prior study dated December 26, 2021. FINDINGS: The visualized lung bases are unremarkable. The visualized portions of the heart are within normal limits. There is decreased attenuation of the liver consistent with steatosis. Normal gallbladder and extrahepatic biliary system. Normal spleen. Normal pancreas. Normal bilateral adrenal glands. Normal right kidney. Normal left kidney. There is a small hiatal hernia. Normal small intestine. Abnormal appearance of the haustral pattern involving the transverse colon as well as the splenic flexure, descending colon and the rectosigmoid colon suggestive of colitis. There are surgical clips in the region of the appendix consistent with a prior appendectomy. Normal abdominal aorta. Normal inferior vena cava. Normal retroperitoneum. Normal urinary bladder. There is absence of the uterus consistent with a prior hysterectomy. Normal abdominal wall. Normal osseous structures. CT/Abdomen/Pelvis W IV Cont ONLY IMPRESSION: Findings in keeping colitis involving the transverse colon, descending colon as well as the rectosigmoid colon. Electronically Signed: Chong Alvarez MD at 10:51 EDT , CC: Dr. Tyree Marie DO; Dr. Juan Carolina MD [employer]: Signed Normal [facility] Basic Metabolic Profile (BMP )on 04-18-2024 BUN/CRE 15.4 RATIO Normal 04-10 [facility] Comment on above: Performed By: #### L 100.0100, L500.2500, L503.6005 #### [facility] [address] [place], [address] CA,Total 9.6 mg/dL Normal 8.5-10.1 [facility] Comment on above: Performed By: #### L 100.0100, L500.2500, L503.6005 #### [facility] [address] [place], [address] Chloride [Moles/Vol] 109 mmol/L High 98-107 [facility] Comment on above: Performed By: #### L 100.0100, L500.2500, L503.6005 #### [facility] [address] [place], [address] CO2 [Moles/Vol] 25.0 mmol/L Normal 21.0-32.0 [facility] Comment on above: Performed By: #### L 100.0100, L500.2500, L503.6005 #### [facility] [address] [place], [address] Creatinine [Mass/Vol] 0.98 mg/dL Normal 0.55-1.02 [facility] Comment on above: Result Comment: The validity of the calculated GFR GFRAA in patients over 70 years has not been determined. Clinical correlation is essential. Performed By: #### L 100.0100, L500.2500, L503.6005 #### [facility] [address] [place], [address] ECRCL 67.12 ml/min Normal [facility] Comment on above: Performed By: #### L 100.0100, L500.2500, L503.6005 #### [facility] [address] [place], [address] EST GFR - AA 77 mL/min Normal >60 [facility] Comment on above: Result Comment: Afri can [place] GFR Calc Performed By: #### L 100.0100, L500.2500, L503.6005 #### [facility] [address] [place], [address] GAP 9 Normal 5-15 [facility] Comment on above: Performed By: #### L 100.0100, L500.2500, L503.6005 #### [facility] [address] [place], [address] GFR/1.73 sq M.predicted among non-blacks MDRD (S/P/Bld) [Vol rate/Area] 63 mL/min/{1.73_m2} Normal >60 [facility] Comment on above: Result Comment: Non- GFR Calc Performed By: #### L 100.0100, L500.2500, L503.6005 #### [facility] [address] [place], [address] Glucose [Mass/Vol] 110 mg/dL High 74-106 [facility] Comment on above: Result Comment: Fast ing Glucose result from 100 to 125 mg/dL suggests IMPAIRED HOMEOSTASIS per A.D.A. criteria. Performed By: #### L 100.0100, L500.2500, L503.6005 #### [facility] [address] [place], [address] Potassium [Moles/Vol] 4.2 mmol/L Normal 3.5-5.1 [facility] Comment on above: Performed By: #### L 100.0100, L500.2500, L503.6005 #### [facility] [address] [place], [address] Sodium [Moles/Vol] 143 mmol/L Normal 136-145 [facility] Comment on above: Performed By: #### L 100.0100, L500.2500, L503.6005 #### [facility] [address] [place], [address] Urea nitrogen [Mass/Vol] 15 mg/dL Normal 7-18 [facility] Comment on above: Performed By: #### L 100.0100, L500.2500, L503.6005 #### [facility] [address] [place], [address] CBC W/Diff, Automatedon 10-2 Absolute Lymph 1.03 X10 3/uL Normal 0.83-4.51 [facility] Comment on above: Performed By: #### L 100.0100, L500.2500, L503.6005 #### [facility] [address] [place], [address] Absolute Neut 10.0 X10 3/uL High 2.0-7.7 [facility] Comment on above: Performed By: #### L 100.0100, L500.2500, L503.6005 #### [facility] [address] [place], [address] Basophils/100 WBC (Bld) 0.5 % Normal 0-1 [facility] Comment on above: Performed By: #### L 100.0100, L500.2500, L503.6005 #### [facility] [address] [place], [address] Eosinophils/100 WBC (Bld) 0.1 % Normal 0-5 [facility] Comment on above: Performed By: #### L 100.0100, L500.2500, L503.6005 #### [facility] [address] [place], [address] Erythrocyte distribution width (RBC) [Ratio] 12.4 % Normal 11.6-14.6 [facility] Comment on above: Performed By: #### L 100.0100, L500.2500, L503.6005 #### [facility] [address] [place], [address] Hematocrit (Bld) [Volume fraction] 46.8 % Normal 37-47 [facility] Comment on above: Performed By: #### L 100.0100, L500.2500, L503.6005 #### [facility] [address] [place], [address] Hemoglobin (Bld) [Mass/Vol] 15.7 g/dL High 12.0-15.0 [facility] Comment on above: Performed By: #### L 100.0100, L500.2500, L503.6005 #### [facility] [address] [place], [address] IG% 0.400 Normal 0.0-0.9 [facility] Comment on above: Result Comment: IG% - Immature Granulocytes (promyelocytes, myelocytes and metamyelocytes) > 1% indicates that a LEFT SHIFT is Present. Performed By: #### L 100.0100, L500.2500, L503.6005 #### [facility] [address] [place], [address] Lymphocytes/100 WBC (Bld) 8.9 % Low 19-41 [facility] Comment on above: Performed By: #### L 100.0100, L500.2500, L503.6005 #### [facility] [address] [place], [address] MCH (RBC) [Entitic mass] 28.9 pg Normal 27.0-32.0 [facility] Comment on above: Performed By: #### L 100.0100, L500.2500, L503.6005 #### [facility] [address] [place], [address] MCHC (RBC) [Mass/Vol] 33.5 g/dL Normal 32-36 [facility] Comment on above: Performed By: #### L 100.0100, L500.2500, L503.6005 #### [facility] [address] [place], [address] MCV (RBC) [Entitic vol] 86.0 fL Normal 81-99 [facility] Comment on above: Performed By: #### L 100.0100, L500.2500, L503.6005 #### [facility] [address] [place], [address] Monocytes/100 WBC (Bld) 3.5 % Normal 0-10 [facility] Comment on above: Performed By: #### L 100.0100, L500.2500, L503.6005 #### [facility] [address] [place], [address] Neutrophils/100 WBC (Bld) 86.6 % High 47-70 [facility] Comment on above: Performed By: #### L 100.0100, L500.2500, L503.6005 #### [facility] [address] [place], [address] Nucleated RBC (Bld) [#/Vol] 0 10*3/uL Normal 0-5 [facility] Comment on above: Performed By: #### L 100.0100, L500.2500, L503.6005 #### [facility] Laboratory [address] [place], [address] Platelet mean volume (Bld) [Entitic vol] 8.9 fL Normal 6.2-12.0 [facility] Comment on above: Performed By: #### L 100.0100, L500.2500, L503.6005 #### [facility] Laboratory [address] [place], [address] Platelets (Bld) [#/Vol] 390 10*3/uL Normal 150-450 [facility] Comment on above: Performed By: #### L 100.0100, L500.2500, L503.6005 #### [facility] Laboratory [address] [place], [address] RBC (Bld) [#/Vol] 5.44 10*6/uL High 4.2-5.4 [facility] Comment on above: Performed By: #### L 100.0100, L500.2500, L503.6005 #### [facility] Laboratory [address] [place], [address] RDW SD 38.3 fl Normal 35.1-43.9 [facility] Comment on above: Performed By: #### L 100.0100, L500.2500, L503.6005 #### [facility] Laboratory [address] [place], [address] WBC (Bld) [#/Vol] 11.5 10*3/uL High 4.4-11.0 [facility] Comment on above: Performed By: #### L 100.0100, L500.2500, L503.6005 #### [facility] Laboratory [address] [place], [address] CDIFF (PCR)on 04-18-2024 CDIFF Pending [id number] [id number] Presumptive Negative *for epidemiolologic???use C. Diff PCR Negative- No toxigenic C. Diff Detected Normal [facility] Comment on above: Performed By: #### M 100.6796 ####[facility] [address] [place], [address] CPK Total, Creatine Kinaseon 04-18-2024 CPK TOTAL 49 U/L Normal 26-192 [facility] Comment on above: Performed By: #### L 100.0100, L500.2500, L503.6005 #### [facility] Laboratory [address] [place], [address] CRPon 04-18-2024 C-REACTIVE PROT 3.64 mg/L High 0.0-3.0 [facility] Comment on above: Result Comment: C-Re active Protein (CRP) provides useful information for the diagnosis, therapy and monitoring of inflammatory processes and associated diseases. For the evaluation of Relative Risk for Cardiovascular Disease, a High Sensitivity CRP (HSCRP) should be ordered. Performed By: #### L 100.0100, L500.2500, L503.6005 #### [facility] Laboratory [address] [place], [address] D-Dimer Quantitative (DVT/PE )on 04-18-2024 D-DIMER QUANT 0.31 FEU/ug/m Normal 0.27-0.49 [facility] Comment on above: Result Comment: NORM AL D-Dimer level (<0.50) indicates no DVT or PE. Performed By: #### L 100.0100, L500.2500, L503.6005 #### [facility] Laboratory [address] [place], [address] Emergency Department Summary on 04-18-2024 Emergency Department Summary [facility] Medical Records Department [address] [place] [address] Emergency Department Summary 04/18/24 MR#: [id number] Acct: [id number] Name: FRANK VENTURA Rep #: [id number] : 1970 53 From: Tyree Marie DO PCP: Dr. Juan Carolina MD Status:ADM IN Location: [place] [address] HPI HPI - GI History of Present Illness Chief Complaint: GI Bleed Detail of Chief Complaint: Abdominal pain with rectal bleeding Informant: patient Narrative Narrative: Patient presents to the emergency department with complaint of rectal bleeding and abdominal pain that started around 3 AM. Patient states she started vomiting initially. She then developed left lower quadrant abdominal pain and this morning passed bright red blood per rectum with mucus and loose stool. Patient tells me she had a URI a week ago and took 5 days of Cipro. No history of C. difficile. She has history of ischemic colitis. Last episode like this was in May of last year. She believes it is her ischemic colitis that is the issue. She has been told she has had history of diverticulitis. She sees a mineral industry teacher locally Dr. Michael. She denies fever or chills or sweats. [facility] Medical History Acute hemorrhagic colitis Arthritis Endometriosis Former smoker Gastric reflux GERD (gastroesophageal reflux disease) Heartburn High cholesterol History of echocardiogram History of IBS History of stress test History of ulceration Reflux esophagitis Rheumatoid arthritis Wears glasses Wears hearing aid Home Medications ???Medication ???Instructions ???Recorded ???Last Taken ???Type hyoscyamine sulfate 0.125 mg 0.125 mg PO BID-QID PRN abdominal 10/21/22 04/17/24 Rx disintegrating tablet pain #120 tabs omeprazole 40 mg capsule,delayed 40 mg PO DAILY #90 caps 10/21/22 04/17/24 Rx release semaglutide (weight loss) 1.7 1.7 mg subcut Q7D 04/18/24 04/16/24 History mg/0.75 mL subcutaneous pen injector Allergy/AdvReac Type Severity Reaction Status Date / Time No Known Allergies Allergy Verified 04/18/24 09:10 Family History Father Heart disease Hypertension Hyperlipidemia Thyroid disorder Skin cancer Grandmother Breast cancer Mother Brain cancer Other Brain tumor Surgical History H/O laparoscopy History of appendectomy History of cardiac catheterization History of hysterectomy Hx of foot surgery Hx of tonsillectomy Social History Smoking Status: Former smoker ROS ROS ED Review of Systems ROS Unobtainable: other Constitutional Constitutional ED: Reports lethargy; Denies chills, fever(s), sweats or weight loss Eyes Eyes: Denies blurry vision, change in vision or diplopia ENT ENT ED: Denies rhinorrhea or sore throat Cardiovascular Cardiovascular: Denies chest pain, orthopnea or racing heartbeat Respiratory/Chest Respiratory/Chest: Denies cough, dyspnea, dyspnea on exertion, orthopnea or sputum Gastrointestinal Gastrointestinal: Reports abdominal pain, nausea, vomiting and other Details: Bright red blood per rectum ; Denies diarrhea Genitourinary Genitourinary ED: Denies dysuria, hematuria or urinary frequency Musculoskeletal Musculoskeletal: Denies arthralgias, back pain, myalgias or neck pain Integumentary Denies abscess, Abrasions or rash Neurologic Neurologic: Denies headache(s) or weakness Psychiatric Psychiatric: Denies anxiety, depression or suicidal thoughts Endocrine Endocrinology: Denies polydipsia, polyphagia or polyuria Hematologic/Lymphatic Hematologic/Lymphatic: Denies easy bleeding, easy bruising or lymphadenopathy Allergic/Immunologic Allergic/Immunologic ED: Denies mouth swelling, tongue swelling or urticaria EXAM Physical Exam Const Vital Signs: 04/18/24 09:10 Temperature 98 F Temperature Source Oral Pulse Rate 105 H Respiratory Rate 20 H Blood Pressure 130/88 H Blood Pressure Mean 102 Pulse Ox 98 Positive well nourished and well developed General Appearance ED: well developed and NAD HEENT Reports TM's clear and moist mucous membranes normocephalic and atraumatic; Negative for trauma or tenderness Tympanic Membrane ED: Yes TM's clear Eyes PERRL and EOMs intact bilaterally General Eye ED: Negative for pale conjunctiva or scleral icterus Neck no lymphadenopathy, supple and no JVD General: Negative for tenderness Chest Wall inspection of chest normal and palpation of chest normal Chest: Negative for tenderness Resp normal respiratory effort and clear to auscultation bilaterally Effort and Inspection: Negative for (more content not included)... Normal [facility] Erythrocyte Sed Rateon 04-18 SED RATE 18 mm/hr Normal 0-30 [facility] Comment on above: Performed By: #### L 503.6005 #### [facility] Laboratory [address] [place], [address] H AND P Exam - Hospitaliston 04-18-2024 H&P Exam - Hospitalist [facility] Medical Records Department [address] [place] [address] H P Exam - Hospitalist 04/18/24 1110 MR#: [id number] Acct: [id number] Name: FRANK VENTURA Rep #: [id number] : 1970 53 From: Karissa Hernandez MD PCP: Dr. Juan Carolina MD Status:ADM IN Location: [facility] [place] [facility] IE250-5 HPI - General General Date of Admission: 04/18/24 Date of Service: 04/18/24 Chief Complaint: abdominal pain HPI Narrative FRANK VENTURA, is a 53 F with a PMH as outlined who presents via the ED on 04/18/2024 with a complaint of abdominal pain and rectal bleeding. Her symptoms started in the early hours of hte day of admission. It started with the abdominal pain, which was mainly in the left lower quadrant, and subsequently had bright red bleeding per rectum. She admits to a history of ischemic colitis. Vitals in the ED were BP of 129/77, IL of 82, RR of 15 and temp of 96.9F. She was saturating at 97% on room air. CBC showed hb of 15.7, wbc was 11.5 and platelets of 390. Chemistry showed sodium of 143, potassium of 4.2, bicarb of 25 and anion gap of 9. Cr was 0.98. Lactic acid was 2.1. CT of the abdomen and pelvis showed colitis of the transverse colon as well as splenic flexure, descending colon and rectosigmoid colon. She has been admitted to be managed for acute colitis. She was started on IV Zosyn in the ED. [facility] Medical History Acute hemorrhagic colitis Arthritis Endometriosis Former smoker Gastric reflux GERD (gastroesophageal reflux disease) Heartburn High cholesterol History of echocardiogram History of IBS History of stress test History of ulceration Reflux esophagitis Rheumatoid arthritis Wears glasses Wears hearing aid Home Medications ???Medication ???Instructions ???Recorded ???Last Taken ???Type hyoscyamine sulfate 0.125 mg 0.125 mg PO BID-QID PRN abdominal 10/21/22 04/17/24 Rx disintegrating tablet pain #120 tabs omeprazole 40 mg capsule,delayed 40 mg PO DAILY #90 caps 10/21/22 04/17/24 Rx release semaglutide (weight loss) 1.7 1.7 mg subcut Q7D 04/18/24 04/16/24 History mg/0.75 mL subcutaneous pen injector Allergy/AdvReac Type Severity Reaction Status Date / Time No Known Allergies Allergy Verified 04/18/24 09:10 Family History Father Heart disease Hypertension Hyperlipidemia Thyroid disorder Skin cancer Grandmother Breast cancer Mother Brain cancer Other Brain tumor Surgical History H/O laparoscopy History of appendectomy History of cardiac catheterization History of hysterectomy Hx of foot surgery Hx of tonsillectomy Social History Smoking Status: Former smoker ROS Review of Systems ROS Unobtainable: Denies due to encephalopathy Constitutional Constitutional: Reports fatigue, malaise and weakness; Denies anorexia, chills or fever(s) Eyes Eyes: Denies change in vision ENT HEENT: Denies dysphagia, epistaxis, headache(s) or sore throat Cardiovascular Cardiovascular: Denies chest pain, dyspnea on exertion, edema, lightheadedness, orthopnea, palpitations, paroxysmal nocturnal dyspnea, rapid heart rate or syncope Respiratory/Chest Respiratory/Chest: Denies cough, productive cough, shortness of breath at rest or shortness of breath with exertion Gastrointestinal Gastrointestinal: Reports abdominal pain and diarrhea; Denies coffee ground emesis, constipation, dyspepsia or hematemesis Genitourinary Genitourinary: Denies dysuria or urinary frequency Musculoskeletal Musculoskeletal: Denies joint stiffness or joint swelling Neurologic Neurologic: Denies abnormal gait, confusion, dizziness, focal weakness or headache(s) Psychiatric Psychiatric: Denies anxiety or depression Endocrine Endocrinology: Denies change in body appearance Hematologic/Lymphatic Hematologic/Lymphatic: Denies anemia Vital Signs Vital Signs Vital Signs: 04/18/24 09:10 Temperature 98 F Temperature Source Oral Pulse Rate 105 H Respiratory Rate 20 H Blood Pressure 130/88 H Blood Pressure Mean 102 Pulse Ox 98 Weight Weight: 179 lb 11.2 oz Body Mass Index (BMI) 31.8 Physical Exam Const alert, oriented x3, no apparent distress and average body habitus General Appearance: cooperative HEENT normocephalic, head/scalp atraumatic, hearing grossly normal bilaterally and moist oral mucous membranes Mouth: oral and palatal mucosa normal Eyes PERRL, EOMs intact bilaterally and conjunctivae normal Neck no lymphadenopathy and supple Resp normal respiratory effort, no retractions and clear to auscultation bilaterally Cardio (more content not included)... Normal [facility] Lactic Acidon 04-18-2024 Lactate [Moles/Vol] 0.9 mmol/L Normal 0.4-1.9 [facility] Comment on above: Performed By: #### L 503.6005 #### [facility] Laboratory [address] [place], [place], [id number] Lactate [Moles/Vol] 2.1 mmol/L Invalid Interpretation Code 0.4-1.9 [facility] Comment on above: Order Comment: Y Result Comment: Crit ical Result(s) Called at: 10:23:10 04/18/2024 by: BHAVANI PAIGE TO SG GARBER. Results read back by same. Performed By: #### L 100.0100, L500.2500, L503.6009 #### [facility] Laboratory [address] [place], [address] MR/CON.PCM.GIon 04-18-2024 MR/CON.PCM.GI [facility] Medical Records Department [address] [place] [address] Consultation - GI 04/18/241937 MR#: [id number] Acct: [id number] Name: FRANK VENTURA Rep #: [id number] : 1970 53 From: Jose Friend DO PCP: Dr. Juan Carolina MD Status:ADM [facility] Consult Data Date of Consult: 04/18/24 HPI Narrative Reason for Consultation: Lower GI bleeding HPI Narrative: FRANK VENTURA, is a 53 F with a significant history of chronic constipation who presents to the emergency department with abdominal pain.??? Her abdominal pain is located at the left lumbar region??? and it radiates to her entire abdomen.??? She described the pain as sharp.??? The pain is episodic.??? The pain worsens with movements.??? Of note as patient was coming to the hospital the pain worsened when she hit the bumps. Of note patient started having hard stools and then it was followed with loose stools.??? Her stools were mixed with blood.??? On presentation patient showed pictures of bloody stool. Patient's pain improved with morphine received at emergency department.??? She reports chills at home.??? Associated with her symptoms is nausea and vomiting.??? She described the pain as excruciating.??? Associated with her??? symptoms is heartburn.. She got a CT scan abdomen pelvis and it showed thickening in the colon. As per the patient she has had at least 5 episodes of ischemic colitis. She is not currently on any blood thinners. [facility] Medical History Acute hemorrhagic colitis Arthritis Endometriosis Former smoker Gastric reflux GERD (gastroesophageal reflux disease) Heartburn High cholesterol History of echocardiogram History of IBS History of stress test History of ulceration Reflux esophagitis Rheumatoid arthritis Wears glasses Wears hearing aid Home Medications ???Medication ???Instructions ???Recorded ???Last Taken ???Type hyoscyamine sulfate 0.125 mg 0.125 mg PO BID-QID PRN abdominal 10/21/22 04/17/24 Rx disintegrating tablet pain #120 tabs omeprazole 40 mg capsule,delayed 40 mg PO DAILY #90 caps 10/21/22 04/17/24 Rx release semaglutide (weight loss) 1.7 1.7 mg subcut Q7D 04/18/24 04/16/24 History mg/0.75 mL subcutaneous pen injector Allergy/AdvReac Type Severity Reaction Status Date / Time No Known Allergies Allergy Verified 04/18/24 09:10 Family History Father Heart disease Hypertension Hyperlipidemia Thyroid disorder Skin cancer Grandmother Breast cancer Mother Brain cancer Other Brain tumor Surgical History H/O laparoscopy History of appendectomy History of cardiac catheterization History of hysterectomy Hx of foot surgery Hx of tonsillectomy Social History Smoking Status: Former smoker ROS Review of Systems ROS Unobtainable: Denies due to encephalopathy Constitutional Constitutional: Reports fatigue, malaise and weakness; Denies anorexia, chills or fever(s) Eyes Eyes: Denies change in vision ENT HEENT: Denies dysphagia, epistaxis, headache(s) or sore throat Cardiovascular Cardiovascular: Denies chest pain, dyspnea on exertion, edema, lightheadedness, orthopnea, palpitations, paroxysmal nocturnal dyspnea, rapid heart rate or syncope Respiratory/Chest Respiratory/Chest: Denies cough, productive cough, shortness of breath at rest or shortness of breath with exertion Gastrointestinal Gastrointestinal: Reports abdominal pain and diarrhea; Denies coffee ground emesis, constipation, dyspepsia or hematemesis Genitourinary Genitourinary: Denies dysuria or urinary frequency Musculoskeletal Musculoskeletal: Denies joint stiffness or joint swelling Neurologic Neurologic: Denies abnormal gait, confusion, dizziness, focal weakness or headache(s) Psychiatric Psychiatric: Denies anxiety or depression Endocrine Endocrinology: Denies change in body appearance Hematologic/Lymphatic Hematologic/Lymphatic: Denies anemia Physical Exam Const alert, oriented x3, no apparent distress and average body habitus General Appearance: cooperative HEENT normocephalic, head/scalp atraumatic, hearing grossly normal bilaterally and moist oral mucous membranes Mouth: oral and palatal mucosa normal Eyes PERRL, EOMs intact bilaterally and conjunctivae normal Neck no lymphadenopathy and supple Resp normal respiratory effort, no retractions and clear to auscultation bilaterally Cardio regular rate, regular rhythm, S1 normal heart sound, S2 normal heart sound and no murmurs GI normal to inspection, nondistended, normoactive bowel sounds GI Narrative: modera (more content not included)... Normal [facility] Rheumatoid Factoron 04-18-20 24 RHEUMATOID FAC < 10.0 Normal <15 [facility] Comment on above: Performed By: #### L 100.0100, L500.2500, L503.6005 #### [facility] Laboratory [address] [place], [address] Type AND Screenon 04-18-2024 Ab SCREEN GEL Negative Normal [facility] Comment on above: Order Comment: HGI Performed By: #### B TS ####[facility] [address] [place], [address] Office Visit Reporton 2023 Office Visit Report [facility] [address] [place] [address] OFFICE VISIT Date of Service: 09/18/23 MR#: [id number] Acct: [id number] Patient: FRANK VENTURA Rep #: [id number] : 1970 Provider: CARI Cuadra Age/Sex: 53/F Location: [facility] Status: Signed Intake Vital Signs 06/07/23 17:29 Height 5 ft 3 in Intake Visit Reasons: PE NON DOT DRUG BAT/ [facility] Chief Complaint: f/u Allergies No Known Allergies Allergy (Verified 06/07/23 17:29) Office Procedures [facility] Billing Sheet Testing Breath Alcohol Test in ED (continuous improvement coach fee charged): No Breath Alcohol in [facility]: Yes Breath Alcohol Test Pre-Employment: Yes Chest X-Ray (interpreted by radiologist): No DOT Drug Screen: No DOT Physical Exam: No DOT Pre-Employment Breath Alcohol: No DOT Pre-Employment Drug Screen: No DOT Reasonable Suspicion: No Drug Screen Collection Only: No Drug Test Performed by another entity: No ECG: No ED television announcer Fee: No Employer Ordered Physical: No Flu Test: No Functional Capacity Evaluation: No Glucose (Finger): No Hair Collection Drug Screen: No Hair Collection Only: No Hair Testing Extended (Opiates): No HCG: No Hearing (Audiogram) Test: No Non-DOT Breath Alcohol Test in ED: No Non-DOT Random Drug Screen: No Non-DOT Reasonable Suspicion: No On Site Service Call (min of 1 hr plus cost of drug screen): No Other DOT Drug Screen: No Other Non-DOT Drug Screen: No Post-Accident DOT Drug Screen (in ED continuous improvement coach fee charged): No Post-Accident DOT Drug Screen in [facility]: No Post-Accident Non-DOT Breath Alcohol Test: No Post-Accident NON-DOT Drug Screen (continuous improvement coach fee charged in ED): No Post-Accident NON-DOT Drug Screen in ED (continuous improvement coach fee charged): No Post-Accident NON-DOT Drug Screen in [facility]: No Pre-Employment Drug Screen [facility] [place]: No Pre-Employment Drug Screen: Yes Pre-Employment PE: No Random Consortium DOT (yearly plus drug testing fee): No Random Consortium Non-DOT (yearly plus drug testing fee): No Respirator Clearance (form only): No Respirator Fit Testing: No RSV/Flu Trang: No Saliva Drug Screen: No Second Drug Screen: No Strep Trang: No TB Test: No Tdap (over age 7): No Titmus Screening: No Vision Test: No Stress Test (conducted interpreted by a warehouse stocker): No Occquant-Quantiferon: No 01/22/24 0736 Date Cesar Moreira Signature: Date (if applicable) CC: [facility] JUANAOVsal 11-10-2023 CNOV Office Visit (INTMWS ) -- FRANK VENTURA ([id number]) 1970 F [facility] Date Time Provider Department 11/10/23 8:20 AM JUAN CAROLINA INTMWS During your visit today, we recorded the following information about you: Temperature Pulse Respiration Blood pressure 98.5 degrees 80/minute 16/minute 112/70 Weight 84.8 kg Juan Carolina MD 11/10/2023 9:12 AM Signed This note was created using [employer]. Subjective Patient presents with: Weight Problem Frank Ventura is a 53 year old female. She [place] from [place] with topiramate from [employer]. She was following her diet. Her weight has not decreased. She has made preliminary inquiries to get a gastric sleeve done in [place]. She was aware of risks. She had no side effects from phentermine. Review of Systems Constitutional: Negative. Cardiovascular: Negative. Gastrointestinal: Negative. Neurological: Negative. Psychiatric/Behavioral: Negative. ACTIVE PROBLEM LIST Gastroesophageal Reflux Disease Without Esophagitis Class 1 Obesity With Serious Comorbidity and Body Mass Index (Bmi) of 31.0 to 31.9 in Adult Hyperlipidemia, Mixed Peripheral Sensory Neuropathy Ischemic Colitis (Hcc) Tubular Adenoma of Colon Chronic Constipation Vitamin D Insufficiency Ifg (Impaired Fasting Glucose) Social History Tobacco Use Smoking status: Former Packs/day: 0.50 Years: 5.00 Additional pack years: 0.00 Total pack years: 2.50 Types: Cigarettes Quit date: 06/22/2009 Years since quittin.3 Smokeless tobacco: Never Vaping Use Vaping Use: Never used Substance Use Topics Alcohol use: Not Currently Alcohol/week: 1.0 standard drink of alcohol Types: 1 Glasses of Wine (5oz) per week Drug use: No Current Outpatient Medications Medication Sig topiramate (TOPAMAX) 25 mg tablet Take 1 tablet by mouth two times a day. Phentermine HCl 15 mg capsule Take 1 capsule by mouth daily before breakfast for 60 days. Do not start before October 29, 2023. Estradiol (ESTRACE) 0.5 mg tablet Take 1 tablet by mouth once daily. progesterone micronized (PROMETRIUM) 200 mg capsule Take 1 capsule by mouth daily at bedtime. omeprazole (PRILOSEC) 40 mg capsule Take 1 capsule by mouth once daily. estradiol (ESTRACE) 0.01 % (0.1 mg/gram) vaginal cream Use 0.5g vaginally at bedtime for 2 weeks then 1-3 time/weeks for maintenance. No current facility-administered medications for this visit. Objective BP 112/70 (BP Site: Left Arm, BP Position: Sitting, BP Cuff Size: Large Adult) Pulse 80 Temp 36.9 ?C (98.5 ?F) (Temporal) Resp 16 Wt 84.8 kg (187 lb) LMP 12/01/2016 BMI 33.93 kg/m? Physical Exam Constitutional: Appearance: She is obese. She is not ill-appearing. Neurological: Mental Status: She is alert. Psychiatric: Mood and Affect: Mood normal. Behavior: Behavior normal. Assessment and Plan 1. Class 1 obesity with serious comorbidity and body mass index (BMI) of 31.0 to 31.9 in adult, unspecified obesity type - ICD9: 278.00, V85.31, ICD10: E66.9, Z68.31 (primary diagnosis) Stable - Behavioral and pharmacological intervention - PHENTERMINE 37.5 MG TABLET Shared medical decision making was done. Discussed medication dosage, usage, goals of therapy, and side effects. Recheck in 4 weeks. Weight loss needed for continuation. We reviewed risks of medical tourism. 2. IFG (impaired fasting glucose) - ICD9: 790.21, ICD10: R73.01 Monitor. Juan Carolina MD Allergies As of Date: 11/10/2023 (No Known Allergies) Date Reviewed: 11/10/2023 Reviewed by: Sona Liang LPN - Fully Assessed Reason for Visit: Weight Problem [121] Primary Visit Diagnosis:Class 1 obesity with serious comorbidity and body mass index (BMI) of 31.0 to 31.9 in adult, unspecified obesity type [E66.9, Z68.31] Other Visit Diagnosis:IFG (impaired fasting glucose) [R73.01] Order(s):Phentermine HCl 37.5 mg tabletTake 1 tablet by mouth once daily for 30 days.Disp: 30 tabletRfl: 0 Prescriptions as of 11/10/2023 - Phentermine HCl 37.5 mg tablet Take 1 tablet by mouth once daily for 30 days. - topiramate (TOPAMAX) 25 mg tablet Take 1 tablet by mouth two times a day. - Estradiol (ESTRACE) 0.5 mg tablet Take 1 tablet by mouth once daily. - progesterone micronized (PROMETRIUM) 200 mg capsule Take 1 capsule by mouth daily at bedtime. - omeprazole (PRILOSEC) 40 mg capsule Take 1 capsule by mouth once daily. - estradiol (ESTRACE) 0.01 % (0.1 mg/gram) vaginal cream Use 0.5g vaginally at bedtime for 2 weeks then 1-3 time/weeks for maintenance. Problem List As Of Date 11/10/2023 Noted Resolved Unspecified symptom associated with female ashley*05/10/2007 06/18/2023 Dysmenorrhea [N94.6] 05/10/2007 06/18/2023 Urgency of urination [R39.15] 09/22/2008 06/18/2023 Gastric ulcer [K25.9] 04/25/2009 06/18/2023 Unspecified gastritis and gastroduodenitis (more content not included)... Normal [facility] INSULIN ASSAY BLOODon 2023 Insulin Qn 16.5 u[IU]/mL 3.0 - 25.0 mU/L [facility] ANES POSTPROC EVALon 024 ANES POSTPROC EVAL HNO ID: [id number] Author: BRYAN GORDON MD Service: Anesthesiology Author Type: Anesthesiologist Type: Anesthesia Postprocedure Evaluation Filed: 08/19/2023 16:45 Note Text: POST ANESTHESIA EVALUATION NOTE : 1970 Procedure Summary Date: 08/19/23 Room / Location: [place] OR02 / [place] Anesthesia Start: 1413 Anesthesia Stop: 1553 Procedure: EXCISION LIPOMA EXTREMITY LOWER (Bilateral: Leg) Diagnosis: Lipoma of lower extremity, unspecified laterality (Lipoma of lower extremity, unspecified laterality [D17.20]) Surgeons: Anthony Kan MD Responsible Provider: Brian Oroczo DO Anesthesia Type: general ASA Status: 2 Anesthesia Type: general Airway Type: LMA Last Vitals Vitals Value Taken Time BP 109/56 08/19/23 1630 Temp 36.3 ?C (97.3 ?F) 08/19/23 1630 Pulse 70 08/19/23 1635 Resp 25 08/19/23 1635 SpO2 98 % 08/19/23 1635 Vitals shown include unfiled device data. Post Anesthesia Patient Status Patient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 opening: adequate. Short neck: no. Thick neck: no Microretrognathia/Micronag thia/Recessed Chin: No DENTAL Normal dental observations. Dental findings: teeth intact. II - ANESTHESIA PLAN ASA Score: 2 Anesthetic Plan: MAC NPO Status: adequate Beta Main Administration of chronic beta main medication not planned. Reasons for not administering beta main perioperatively: other Monitoring Plan Monitoring plan: standard ASA. Post Procedure Analgesic Plan Postoperative analgesic plan: parenteral or oral opioids and per surgical service. Informed Consent Anesthetic risks, benefits, alternatives, personnel and consent discussed: yes. Patient / Responsible Alliance Party agrees to proceed: yes Patient / Surrogate agrees to blood products: blood products not planned Discussed the possibility of lip / dental damage: yes Vitals Value Taken Time BP 108/78 06/09/23 1050 Pulse 95 06/09/23 1050 Resp 18 06/09/23 1050 Temp 36.8 ?C (98.2 ?F) 06/09/23 1050 SpO2 98 % 06/09/23 1050 Facility-Administered Medications as of 06/09/2023 Medication Dose Route Frequency - lactated ringers iv infusion 5-30 mL/hr INTRAVENOUS CONTINUOUS - [Held on Transfer] morphine 4 mg injection 4 mg INTRAVENOUS q 4 H PRN - [Held on Transfer] NaCl 0.9% iv flush bag 20 mL INTRAVENOUS PRN - [] lactated ringers iv infusion 125 mL/hr INTRAVENOUS CONTINUOUS - [Held on Transfer] pantoprazole 40 mg injection (PROTONIX) 40 mg INTRAVENOUS BID AC (0600/1600) Followed by - [Held on Transfer] pantoprazole 40 mg injection (PROTONIX) 40 mg INTRAVENOUS DAILY (6 AM) - [Held on Transfer] ciprofloxacin iv piggyback 400 mg in D5W 200 mL (CIPRO) 400 mg INTRAVENOUS q 12 H - [Held on Transfer] metroNIDAZOLE iv piggyback 500 mg in NaCl (iso-osmotic) 100 mL (FLAGYL) 500 mg INTRAVENOUS q 8 H - [Held on Transfer] prochlorperazine 5 mg injection (COMPAZINE) 5 mg INTRAVENOUS q 6 H PRN - [COMPLETED] sodium phosphate-sodium bisphosphate 133 mL enema (FLEET) 133 mL RECTAL ONCE - [COMPLETED] sodium phosphate-sodium bisphosphate 133 mL enema (FLEET) 133 mL RECTAL ONCE - [COMPLETED] morphine 4 mg injection 4 mg INTRAVENOUS ONCE - [COMPLETED] ondansetron (PF) 4 mg injection (ZOFRAN) 4 mg INTRAVENOUS ONCE - [COMPLETED] lactated ringers 1,000 mL iv bolus 1,000 mL INTRAVENOUS ONCE - [COMPLETED] ciprofloxacin iv piggyback 400 mg in D5W 200 mL (CIPRO) 400 mg INTRAVENOUS ONCE Outpatient Medications as of 06/09/2023 Medication Sig - ibuprofen (MOTRIN) 600 mg tablet Take 1 tablet by mouth every 6 hours. - IBUPROFEN IB ORAL Take 3 tablets by mouth every 4 hours as needed. - Amphetamine-Dextroamphetam ine (ADDERALL) 15 mg ORAL tablet Take 1 tablet by mouth once daily. - ondansetron (ZOFRAN) 4 mg tablet Take 4 mg by mouth. TAKE ONE TABLET BY MOUTH EVERY 6 HOURS NEEDED FOR NAUSEA - Omeprazole (PRILOSEC) 40 mg capsule Take 1 capsule by mouth once daily. - oxyCODONE IR (ROXICODONE) 5 mg immediate release tablet Take 1-2 tablets by mouth every 3 hours as needed. - docusate sodium (COLACE) 100 mg capsule Take 1 capsule by mouth twice daily. I have interviewed and examined the patient. I have reviewed the medical record and/or the pre-anesthesia evaluation, pertinent labs, and test results. This contains updated information obtained within 48 hours of Surgery/Procedure. SIGNATURE: Avery Torres MD PATIENT NAME: Frank Ventura DATE: June 09, 2023 TIME: 11:24 AM CSN: [id number] Normal [facility] CBC W Auto Differential pane l (Bld)on 06-09-2023 Basophils (Bld) [#/Vol] 0.04 10*3/uL Normal <0.11 [facility] Comment on above: Order Comment: Don skelton Type: BLOOD SPECIMEN Ordering Facility: [facility] Address: [address] [place] [address] Performed By: #### 5 7021-8 #### [facility] CLIA [id number] [address] [place] [address] [place] Basophils/100 WBC (Bld) 0.4 % Normal [facility] Comment on above: Order Comment: Don skelton Type: BLOOD SPECIMEN Ordering Facility: [facility] Address: [address] [place] [address] Performed By: #### 5 7021-8 #### [facility] CLIA [id number] [address] [place] [address] [place] Differential cell count method Nom (Bld) Auto Normal [facility] Comment on above: Order Comment: Speci men Type: BLOOD SPECIMEN Ordering Facility: [facility] Address: [address] [place] [address] Performed By: #### 5 7021-8 #### [facility] CLIA [id number] [address] [place] Eosinophils (Bld) [#/Vol] 0.06 10*3/uL Normal <0.46 [facility] Comment on above: Order Comment: Speci men Type: BLOOD SPECIMEN Ordering Facility: [facility] Address: [address] [place] [address] Performed By: #### 5 7021-8 #### [facility] CLIA [id number] [address] Eosinophils/100 WBC (Bld) 0.6 % Normal [facility] Comment on above: Order Comment: Speci men Type: BLOOD SPECIMEN Ordering Facility: [facility] Address: [address] [place] [address] Performed By: #### 5 7021-8 #### [facility] CLIA [id number] [address] [place] Erythrocyte distribution width (RBC) [Ratio] 12.4 % Normal 11.5-15.0 [facility] Comment on above: Order Comment: Speci men Type: BLOOD SPECIMEN Ordering Facility: [facility] Address: [address] [place] [address] Performed By: #### 5 7021-8 #### [facility] CLIA [id number] [address] [place] Hematocrit (Bld) [Volume fraction] 39.0 % Normal 36.0-46.0 [facility] Comment on above: Order Comment: Speci men Type: BLOOD SPECIMEN Ordering Facility: [facility] Address: [address] [place] [address] Performed By: #### 5 7021-8 #### [facility] CLIA [id number] [address] [place] Hemoglobin (Bld) [Mass/Vol] 13.4 g/dL Normal 11.5-15.5 [facility] Comment on above: Order Comment: Speci men Type: BLOOD SPECIMEN Ordering Facility: [facility] Address: [address] [place] [address] Performed By: #### 5 7021-8 #### [facility] CLIA [id number] [address] [place] Immature granulocytes (Bld) [#/Vol] 0.04 10*3/uL Normal <0.10 [facility] Comment on above: Order Comment: Speci men Type: BLOOD SPECIMEN Ordering Facility: [facility] Address: [address] [place] [address] Performed By: #### 5 7021-8 #### [facility] CLIA [id number] [address] Immature granulocytes/100 WBC (Bld) 0.4 % Normal [facility] Comment on above: Order Comment: Speci men Type: BLOOD SPECIMEN Ordering Facility: [facility] Address: [address] [place] [address] Performed By: #### 5 7021-8 #### [facility] CLIA [id number] [address] Lymphocytes (Bld) [#/Vol] 1.66 10*3/uL Normal 1.00-4.00 [facility] Comment on above: Order Comment: Speci men Type: BLOOD SPECIMEN Ordering Facility: [facility] Address: [address] [place] [address] Performed By: #### 5 7021-8 #### [facility] CLIA [id number] [address] Lymphocytes/100 WBC (Bld) 17.6 % Normal [facility] Comment on above: Order Comment: Speci men Type: BLOOD SPECIMEN Ordering Facility: [facility] Address: [address] [place] [address] Performed By: #### 5 7021-8 #### [facility] CLIA [id number] [address] [place] MCH (RBC) [Entitic mass] 29.7 pg Normal 26.0-34.0 [facility] Comment on above: Order Comment: Speci men Type: BLOOD SPECIMEN Ordering Facility: [facility] Address: [address] [place] [address] Performed By: #### 5 7021-8 #### [facility] CLIA [id number] [address] OF [facility] MCHC (RBC) [Mass/Vol] 34.4 g/dL Normal 30.5-36.0 [facility] Comment on above: Order Comment: Speci men Type: BLOOD SPECIMEN Ordering Facility: [facility] Address: [address] [place] [address] Performed By: #### 5 7021-8 #### [facility] CLIA [id number] [address] MCV (RBC) [Entitic vol] 86.5 fL Normal 80.0-100.0 [facility] Comment on above: Order Comment: Speci men Type: BLOOD SPECIMEN Ordering Facility: [facility] Address: [address] [place] [address] Performed By: #### 5 7021-8 #### [facility] CLIA [id number] [address] Monocytes (Bld) [#/Vol] 0.71 10*3/uL Normal <0.87 [facility] Comment on above: Order Comment: Speci men Type: BLOOD SPECIMEN Ordering Facility: [facility] Address: [address] [place] [address] Performed By: #### 5 7021-8 #### [facility] CLIA [id number] [address] Monocytes/100 WBC (Bld) 7.5 % Normal [facility] Comment on above: Order Comment: Speci men Type: BLOOD SPECIMEN Ordering Facility: [facility] Address: [address] [place] [address] Performed By: #### 5 7021-8 #### [facility] CLIA [id number] [address] [place] Neutrophils (Bld) [#/Vol] 6.90 10*3/uL Normal 1.45-7.50 [facility] Comment on above: Order Comment: Speci men Type: BLOOD SPECIMEN Ordering Facility: [facility] Address: [address] [place] [address] Performed By: #### 5 7021-8 #### [facility] CLIA [id number] [address] [place] Neutrophils/100 WBC (Bld) 73.5 % Normal [facility] Comment on above: Order Comment: Speci men Type: BLOOD SPECIMEN Ordering Facility: [facility] Address: [address] [place] [address] Performed By: #### 5 7021-8 #### [facility] CLIA [id number] [address] [place] Nucleated RBC (Bld) [#/Vol] 10*3/uL Normal <0.01 [facility] Comment on above: Order Comment: Speci men Type: BLOOD SPECIMEN Ordering Facility: [facility] Address: [address] [place] [address] Performed By: #### 5 7021-8 #### [facility] CLIA [id number] [address] OF [facility] Nucleated RBC/100 WBC (Bld) [Ratio] 0.0 /100 WBC Normal [facility] Comment on above: Order Comment: Speci men Type: BLOOD SPECIMEN Ordering Facility: [facility] Address: [address] [place] [address] Performed By: #### 5 7021-8 #### [facility] CLIA [id number] [address] [place] Platelet mean volume (Bld) [Entitic vol] 9.2 fL Normal 9.0-12.7 [facility] Comment on above: Order Comment: Speci men Type: BLOOD SPECIMEN Ordering Facility: [facility] Address: [address] [place] [address] Performed By: #### 5 7021-8 #### [facility] CLIA [id number] [address] [place] Platelets (Bld) [#/Vol] 244 10*3/uL Normal 150-400 [facility] Comment on above: Order Comment: Speci men Type: BLOOD SPECIMEN Ordering Facility: [facility] Address: [address] [place] [address] Performed By: #### 5 7021-8 #### [facility] CLIA [id number] [address] [place] RBC (Bld) [#/Vol] 4.51 10*6/uL Normal 3.90-5.20 [facility] Comment on above: Order Comment: Speci men Type: BLOOD SPECIMEN Ordering Facility: [facility] Address: [address] [place] [address] Performed By: #### 5 7021-8 #### [facility] CLIA [id number] [address] OF [facility] WBC (Bld) [#/Vol] 9.41 10*3/uL Normal 3.70-11.00 [facility] Comment on above: Order Comment: Speci men Type: BLOOD SPECIMEN Ordering Facility: [facility] Address: [address] [place] [address] Performed By: #### 5 7021-8 #### [facility] CLIA [id number] [address] OF [facility] Flexible Sigmoidoscopyon Flexible sigmoidoscopy [facility] Gastrointestinal Endoscopy Patient Name: Frank Ventura Procedure Date: 06/09/2023 1:06 PM Date of : 1970 Admit Type: Inpatient Room: [place] [address] Gender: Female Note Status: Finalized Attending MD: Rui Orosco MD, [id number] Procedure: Flexible Sigmoidoscopy Indications: Hematochezia Providers: Rui Orosco MD Patient Profile: Refer to note in patient chart for documentation of history and physical. Referring Physician: Rona Martinez (Referring MD) Medicines: Monitored Anesthesia Care Complications: No immediate complications. Procedure: Pre-Anesthesia Assessment: - Prior to the procedure, a History and Physical was performed, and patient medications and allergies were reviewed. The patient's tolerance of previous anesthesia was also reviewed. The risks and benefits of the procedure and the sedation options and risks were discussed with the patient. All questions were answered, and informed consent was obtained. Prior Anticoagulants: The patient has taken no anticoagulant or antiplatelet agents. ASA Grade Assessment: III - A patient with severe systemic disease. After reviewing the risks and benefits, the patient was deemed in satisfactory condition to undergo the procedure. After obtaining informed consent, the scope was passed under direct vision. The Endoscope was introduced through the anus and advanced to the splenic flexure. I was present and participated during the entire procedure, including non-correia portions, and during the administration and monitoring of Moderate Sedation. The flexible sigmoidoscopy was accomplished without difficulty. The patient tolerated the procedure well. The quality of the bowel preparation was good. Moderate Sedation: Exam was performed under monitored anesthesia care (MAC) Findings: The perianal and digital rectal examinations were normal. Ischemic colitis pattern of injury. A few ulcers were found at the splenic flexure, one is large and continuous into the transverse colon. The colonoscope was not pushed past the splenic flexure. Oozing was present. Biopsies were taken with a cold forceps for histology. Estimated Blood Loss: Estimated blood loss: none. Impression: - A few ulcers at the splenic flexure. Biopsied. Recommendation: - Use fiber, for example Citrucel, Fibercon, Konsyl or Metamucil. Procedure Code(s): --- Professional --- 19285, Sigmoidoscopy, flexible; with biopsy, single or multiple --- Technical --- 84294, Sigmoidoscopy, flexible; with biopsy, single or multiple Diagnosis Code(s): --- Professional --- K63.3, Ulcer of intestine K92.1, Melena (includes Hematochezia) --- Technical --- K63.3, Ulcer of intestine K92.1, Melena (includes Hematochezia) CPT copyright 2020 [place] [employer]. All rights reserved. The codes documented in this report are preliminary and upon hcc coders review may be revised to meet current compliance requirements. Attending Participation: I personally performed the entire procedure. Scope In: 1:20:04 PM Scope Out: 1:25:17 PM MD Rui Ba MD 06/09/2023 1:29:11 PM This report has been signed electronically by Rui Orosco MD Number of Addenda: 0 Note Initiated On: 06/09/2023 1:06 PM Normal [facility] Renal function 2000 panelon 06-09-2023 Albumin [Mass/Vol] 3.7 g/dL Low 3.9-4.9 [facility] Comment on above: Order Comment: Speci men Type: BLOOD SPECIMEN Ordering Facility: [facility] Address: [address] [place] [address] Performed By: #### 2 4362-6 #### [facility] CLIA [id number] [address] [place] Anion gap [Moles/Vol] 11 mmol/L Normal 9-18 [facility] Comment on above: Order Comment: Speci men Type: BLOOD SPECIMEN Ordering Facility: [facility] Address: [address] [place] [address] Performed By: #### 2 4362-6 #### [facility] CLIA [id number] [address] [place] [address] [place] Calcium [Mass/Vol] 9.3 mg/dL Normal 8.5-10.2 [facility] Comment on above: Order Comment: Speci men Type: BLOOD SPECIMEN Ordering Facility: [facility] Address: [address] [place] [address] Performed By: #### 2 4362-6 #### [facility] CLIA [id number] [address] [place] [address] [place] Chloride [Moles/Vol] 104 mmol/L Normal 97-105 [facility] Comment on above: Order Comment: Speci men Type: BLOOD SPECIMEN Ordering Facility: [facility] Address: [address] [place] [address] Performed By: #### 2 4362-6 #### [facility] CLIA [id number] [address] CO2 [Moles/Vol] 23 mmol/L Normal 22-30 [facility] Comment on above: Order Comment: Speci men Type: BLOOD SPECIMEN Ordering Facility: [facility] Address: [address] [place] [address] Performed By: #### 2 4362-6 #### [facility] CLIA [id number] [address] OF [facility] Creatinine [Mass/Vol] 0.86 mg/dL Normal 0.58-0.96 [facility] Comment on above: Order Comment: Speci men Type: BLOOD SPECIMEN Ordering Facility: [facility] Address: [address] [place] [address] Performed By: #### 2 4362-6 #### [facility] CLIA [id number] [address] Creatinine and Glomerular filtration rate.predicted panel (S/P/Bld) 81 mL/min/1.73m??? Normal >=60 [facility] Comment on above: Order Comment: Speci men Type: BLOOD SPECIMEN Ordering Facility: [facility] Address: [address] [place] [address] Result Comment: Shannon mated Glomerular Filtration Rate (eGFR) is calculated using the 2020 CKD-EPI creatinine equation. This equation utilizes serum creatinine, sex, and age as parameters. The creatinine assay has traceable calibration to isotope dilution-mass spectrometry. Refer to KDIGO guidelines for clinical interpretation. In patients with unstable renal function, e.g. those with acute kidney injury, the eGFR may not accurately reflect actual GFR. Performed By: #### 2 4362-6 #### [facility] CLIA [id number] [address] Glucose [Mass/Vol] 97 mg/dL Normal 74-99 [facility] Comment on above: Order Comment: Speci men Type: BLOOD SPECIMEN Ordering Facility: [facility] Address: [address] [place] [address] Result Comment: The [place] [employer] (ADA) provides guidance for cutoff values for fasting glucose and random glucose. The ADA defines fasting as no caloric intake for at least 8 hours. Fasting plasma glucose results between 100 to 125 mg/dL indicate increased risk for diabetes (prediabetes). Fasting plasma glucose results greater than or equal to 126 mg/dL meet the criteria for diagnosis of diabetes. In the absence of unequivocal hyperglycemia, results should be confirmed by repeat testing. In a patient with classic symptoms of hyperglycemia or hyperglycemic crisis, random plasma glucose results greater than or equal to 200 mg/dL meet the criteria for diagnosis of diabetes. Reference: Standards of Medical Care in Diabetes 2016, [place] [employer]. Diabetes Care. 2016.39(Suppl 1). Performed By: #### 2 4362-6 #### [facility] CLIA [id number] [address] [place] Phosphate [Mass/Vol] 3.2 mg/dL Normal 2.7-4.8 [facility] Comment on above: Order Comment: Speci men Type: BLOOD SPECIMEN Ordering Facility: [facility] Address: [address] [place] [address] Performed By: #### 2 4362-6 #### [facility] CLIA [id number] [address] [place] [address] [place] Potassium [Moles/Vol] 3.7 mmol/L Normal 3.7-5.1 [facility] Comment on above: Order Comment: Speci men Type: BLOOD SPECIMEN Ordering Facility: [facility] Address: [address] [place] [address] Performed By: #### 2 4362-6 #### [facility] CLIA [id number] [address] [place] [address] [place] Sodium [Moles/Vol] 138 mmol/L Normal 136-144 [facility] Comment on above: Order Comment: Speci men Type: BLOOD SPECIMEN Ordering Facility: [facility] Address: [address] [place] [address] Performed By: #### 2 4362-6 #### [facility] CLIA [id number] [address] [place] [address] [place] Urea nitrogen [Mass/Vol] 6 mg/dL Low 7-21 [facility] [facility] Comment on above: Order Comment: Speci men Type: BLOOD SPECIMEN Ordering Facility: [facility] Address: [address] [place] [address] Performed By: #### 2 4362-6 #### [facility] CLIA [id number] [address] SURGICAL PATHOLOGYon 023 CASE REPORT Normal [facility] Comment on above: Order Comment: Don costa Type: BLOOD SPECIMEN Ordering Facility: [facility] Address: [address] [place] [address] Result Comment: Surg ical Pathology Report Case: [id number] Authorizing Provider: Rui Orosco MD Collected: 06/09/2023 01:24 PM Ordering Location: [facility] Received: 06/11/2023 09:00 AM Pathologist: Magan Owens MD Specimen: COLON BIOPSY, r/o ischemia Performed By: #### 3 2693-4 #### [facility] CLIA [id number] [address] [place] [address] DIAGNOSIS COMMENT Normal [facility] Comment on above: Order Comment: Specmelanie costa Type: BLOOD SPECIMEN Ordering Facility: [facility] Address: [address] [place] [address] Result Comment: The findings are that of an ischemic-type pattern of injury. While this pattern characterizes ischemic colitis, it is not entirely specific, and can also be seen in the setting of pseudomembranous colitis and other infectious etiologies as well as drug effects (NSAIDS etc) and vasculitides/vasculopathies. Clinical and endoscopic correlation is recommended. Performed By: #### 3 2693-4 #### [facility] CLIA [id number] [address] [place] [address] FINAL DIAGNOSIS Normal [facility] Comment on above: Order Comment: Don costa Type: BLOOD SPECIMEN Ordering Facility: [facility] Address: [address] [place] [address] Result Comment: A. C olon, splenic flexure, biopsy: - Colonic mucosa with features of ischemic-type pattern of injury (see comment). Performed By: #### 3 2693-4 #### [facility] CLIA [id number] [address] [place] [address] OF [facility] FINAL PERFORMING LAB Normal [facility] Comment on above: Order Comment: Speci men Type: BLOOD SPECIMEN Ordering Facility: [facility] Address: [address] [place] [address] Result Comment: Diag nostic interpretation performed at [facility], [address] [place] [address] CLIA# [id number] Service Provider: Jaleel Posada M.D. Performed By: #### 3 2693-4 #### [facility] CLIA [id number] [address] [place] [address] GROSS DESCRIPTION A. COLON BIOPSY Normal [facility] Comment on above: Order Comment: Speci men Type: BLOOD SPECIMEN Ordering Facility: [facility] Address: [address] [place] [address] Result Comment: Rece ived in formalin labeled colon biopsy R/O ischemia is one piece of jones, soft tissue measuring 0.4 x 0.2 x 0.2 cm. Totally submitted in one cassette. Gross examination performed at [facility], [address] [place] [address] CLIA# [id number] RSA June 11, 2023 10:34 AM Performed By: #### 3 2693-4 #### [facility] CLIA [id number] [address] [place] [address] OF [place] Basic metabolic 2000 panelon 06-08-2023 Anion gap [Moles/Vol] 8 mmol/L Low 03-09 [facility] Comment on above: Order Comment: Speci men Type: BLOOD SPECIMEN Ordering Facility: [facility] Address: [address] [place] [address] Performed By: #### 1 9123-9, 56386-7 #### [facility] CLIA [id number] [address] [place] [address] STATES OF [facility] Calcium [Mass/Vol] 8.7 mg/dL Normal 8.5-10.2 [facility] Comment on above: Order Comment: Speci men Type: BLOOD SPECIMEN Ordering Facility: [facility] Address: [address] [place] [address] Performed By: #### 1 9123-9, 80512-9 #### [employer] [facility] CLIA [id number] [address] STATES [place] Chloride [Moles/Vol] 107 mmol/L High 97-105 [facility] Comment on above: Order Comment: Speci men Type: BLOOD SPECIMEN Ordering Facility: [facility] Address: [address] [place] [address] Performed By: #### 1 9123-9, 97760-2 #### [facility] CLIA [id number] [address] [place] [address] STATES [place] CO2 [Moles/Vol] 25 mmol/L Normal 22-30 [facility] Comment on above: Order Comment: Speci men Type: BLOOD SPECIMEN Ordering Facility: [facility] Address: [address] [place] [address] Performed By: #### 1 9123-9, 37069-8 #### [facility] CLIA [id number] [address] [place] [address] STATES [place] Creatinine [Mass/Vol] 0.85 mg/dL Normal 0.58-0.96 [facility] Comment on above: Order Comment: Speci men Type: BLOOD SPECIMEN Ordering Facility: [facility] Address: [address] [place] [address] Performed By: #### 1 9123-9, 25255-7 #### [employer] [facility] CLIA [id number] [address] OF [place] Creatinine and Glomerular filtration rate.predicted panel (S/P/Bld) 83 mL/min/1.73m??? Normal >=60 [facility] Comment on above: Order Comment: Speci men Type: BLOOD SPECIMEN Ordering Facility: [facility] Address: [address] [place] [address] Result Comment: Shannon mated Glomerular Filtration Rate (eGFR) is calculated using the 2020 CKD-EPI creatinine equation. This equation utilizes serum creatinine, sex, and age as parameters. The creatinine assay has traceable calibration to isotope dilution-mass spectrometry. Refer to KDIGO guidelines for clinical interpretation. In patients with unstable renal function, e.g. those with acute kidney injury, the eGFR may not accurately reflect actual GFR. Performed By: #### 1 9123-9, 80611-0 #### [facility] CLIA [id number] [address] [place] [address] [place] Glucose [Mass/Vol] 94 mg/dL Normal 74-99 [facility] Comment on above: Order Comment: Don skelton Type: BLOOD SPECIMEN Ordering Facility: [facility] Address: [address] [place] [address] Result Comment: The [place] Diabetes Association (ADA) provides guidance for cutoff values for fasting glucose and random glucose. The ADA defines fasting as no caloric intake for at least 8 hours. Fasting plasma glucose results between 100 to 125 mg/dL indicate increased risk for diabetes (prediabetes). Fasting plasma glucose results greater than or equal to 126 mg/dL meet the criteria for diagnosis of diabetes. In the absence of unequivocal hyperglycemia, results should be confirmed by repeat testing. In a patient with classic symptoms of hyperglycemia or hyperglycemic crisis, random plasma glucose results greater than or equal to 200 mg/dL meet the criteria for diagnosis of diabetes. Reference: Standards of Medical Care in Diabetes 2016, [place] [employer] Association. Diabetes Care. 2016.39(Suppl 1). Performed By: #### 1 9123-9, 53207-1 #### [facility] CLIA [id number] [address] [place] [address] [place] Potassium [Moles/Vol] 3.6 mmol/L Low 3.7-5.1 [facility] Comment on above: Order Comment: Don skelton Type: BLOOD SPECIMEN Ordering Facility: [facility] Address: [place] [address] Performed By: #### 1 9123-9, 69919-3 #### [facility] CLIA [id number] [address] [place] [address] [place] Sodium [Moles/Vol] 140 mmol/L Normal 136-144 [facility] Comment on above: Order Comment: Speci men Type: BLOOD SPECIMEN Ordering Facility: [facility] Address: [address] [place] [address] Performed By: #### 1 9123-9, 62506-2 #### [facility] CLIA [id number] [address] STATES [place] Urea nitrogen [Mass/Vol] 8 mg/dL Normal 7- [facility] Comment on above: Order Comment: Speci men Type: BLOOD SPECIMEN Ordering Facility: [facility] Address: [address] [place] [address] Performed By: #### 1 9123-9, 58908-1 #### [facility] CLIA [id number] [address] STATES OF [facility] CBC W Auto Differential pane l (Bld)on 06-08-2023 Basophils (Bld) [#/Vol] 0.04 10*3/uL Normal <0.11 [facility] Comment on above: Order Comment: Speci men Type: BLOOD SPECIMEN Ordering Facility: [facility] Address: [address] [place] [address] Performed By: #### 5 7021-8 #### [facility] CLIA [id number] [address] [place] [address] STATES [facility] Basophils/100 WBC (Bld) 0.5 % Normal [facility] Comment on above: Order Comment: Speci men Type: BLOOD SPECIMEN Ordering Facility: [facility] Address: [address] [place] [address] Performed By: #### 5 7021-8 #### [facility] CLIA [id number] [address] Differential cell count method Nom (Bld) Auto Normal [facility] Comment on above: Order Comment: Speci men Type: BLOOD SPECIMEN Ordering Facility: [facility] Address: [address] [place] [address] Performed By: #### 5 7021-8 #### [facility] CLIA [id number] [address] [place] [address] [place] Eosinophils (Bld) [#/Vol] 0.12 10*3/uL Normal <0.46 [facility] Comment on above: Order Comment: Speci men Type: BLOOD SPECIMEN Ordering Facility: [facility] Address: [address] [place] [address] Performed By: #### 5 7021-8 #### [facility] CLIA [id number] [address] Eosinophils/100 WBC (Bld) 1.4 % Normal [facility] Comment on above: Order Comment: Speci men Type: BLOOD SPECIMEN Ordering Facility: [facility] Address: [address] [place] [address] Performed By: #### 5 7021-8 #### [facility] CLIA [id number] [address] [place] Erythrocyte distribution width (RBC) [Ratio] 12.8 % Normal 11.5-15.0 [facility] Comment on above: Order Comment: Speci men Type: BLOOD SPECIMEN Ordering Facility: [facility] Address: [address] [place] [address] Performed By: #### 5 7021-8 #### [facility] CLIA [id number] [address] STATES [place] Hematocrit (Bld) [Volume fraction] 39.0 % Normal 36.0-46.0 [facility] Comment on above: Order Comment: Speci men Type: BLOOD SPECIMEN Ordering Facility: [facility] Address: [address] [place] [address] Performed By: #### 5 7021-8 #### [facility] CLIA [id number] [address] STATES [place] Hemoglobin (Bld) [Mass/Vol] 13.0 g/dL Normal 11.5-15.5 [facility] Comment on above: Order Comment: Speci men Type: BLOOD SPECIMEN Ordering Facility: [facility] Address: [address] [place] [address] Performed By: #### 5 7021-8 #### [facility] CLIA [id number] [address] Immature granulocytes (Bld) [#/Vol] 10*3/uL Normal <0.10 [facility] Comment on above: Order Comment: Speci men Type: BLOOD SPECIMEN Ordering Facility: [facility] Address: [address] [place] [address] Performed By: #### 5 7021-8 #### [facility] CLIA [id number] [address] Immature granulocytes/100 WBC (Bld) 0.2 % Normal [facility] Comment on above: Order Comment: Speci men Type: BLOOD SPECIMEN Ordering Facility: [facility] Address: [address] [place] [address] Performed By: #### 5 7021-8 #### [facility] CLIA [id number] [address] Lymphocytes (Bld) [#/Vol] 2.40 10*3/uL Normal 1.00-4.00 [facility] Comment on above: Order Comment: Speci men Type: BLOOD SPECIMEN Ordering Facility: [facility] Address: [address] [place] [address] Performed By: #### 5 7021-8 #### [facility] CLIA [id number] [address] Lymphocytes/100 WBC (Bld) 28.8 % Normal [facility] Comment on above: Order Comment: Speci men Type: BLOOD SPECIMEN Ordering Facility: [facility] Address: [address] [place] [address] Performed By: #### 5 7021-8 #### [facility] CLIA [id number] [address] STATES [facility] MCH (RBC) [Entitic mass] 29.4 pg Normal 26.0-34.0 [facility] Comment on above: Order Comment: Speci men Type: BLOOD SPECIMEN Ordering Facility: [facility] Address: [address] [place] [address] Performed By: #### 5 7021-8 #### [facility] CLIA [id number] [address] STATES [place] MCHC (RBC) [Mass/Vol] 33.3 g/dL Normal 30.5-36.0 [facility] Comment on above: Order Comment: Speci men Type: BLOOD SPECIMEN Ordering Facility: [facility] Address: [address] [place] [address] Performed By: #### 5 7021-8 #### [facility] CLIA [id number] [address] [place] MCV (RBC) [Entitic vol] 88.2 fL Normal 80.0-100.0 [facility] Comment on above: Order Comment: Speci men Type: BLOOD SPECIMEN Ordering Facility: [facility] Address: [address] [place] [address] Performed By: #### 5 7021-8 #### [facility] CLIA [id number] [address] [place] Monocytes (Bld) [#/Vol] 0.67 10*3/uL Normal <0.87 [facility] Comment on above: Order Comment: Speci men Type: BLOOD SPECIMEN Ordering Facility: [facility] Address: [address] [place] [address] Performed By: #### 5 7021-8 #### [facility] CLIA [id number] [address] Monocytes/100 WBC (Bld) 8.0 % Normal [facility] Comment on above: Order Comment: Speci men Type: BLOOD SPECIMEN Ordering Facility: [facility] Address: [address] [place] [address] Performed By: #### 5 7021-8 #### [facility] CLIA [id number] [address] STATES [place] Neutrophils (Bld) [#/Vol] 5.08 10*3/uL Normal 1.45-7.50 [facility] Comment on above: Order Comment: Speci men Type: BLOOD SPECIMEN Ordering Facility: [facility] Address: [address] [place] [address] Performed By: #### 5 7021-8 #### [facility] CLIA [id number] [address] Neutrophils/100 WBC (Bld) 61.1 % Normal [facility] Comment on above: Order Comment: Speci men Type: BLOOD SPECIMEN Ordering Facility: [facility] Address: [address] [place] [address] Performed By: #### 5 7021-8 #### [facility] CLIA [id number] [address] [place] Nucleated RBC (Bld) [#/Vol] 10*3/uL Normal <0.01 [facility] Comment on above: Order Comment: Speci men Type: BLOOD SPECIMEN Ordering Facility: [facility] Address: [address] [place] [address] Performed By: #### 5 7021-8 #### [facility] CLIA [id number] [address] Nucleated RBC/100 WBC (Bld) [Ratio] 0.0 /100 WBC Normal [facility] Comment on above: Order Comment: Speci men Type: BLOOD SPECIMEN Ordering Facility: [facility] Address: [address] [place] [address] Performed By: #### 5 7021-8 #### [facility] CLIA [id number] [address] Platelet mean volume (Bld) [Entitic vol] 9.2 fL Normal 9.0-12.7 [facility] Comment on above: Order Comment: Speci men Type: BLOOD SPECIMEN Ordering Facility: [facility] Address: [address] [place] [address] Performed By: #### 5 7021-8 #### [facility] CLIA [id number] [address] [place] Platelets (Bld) [#/Vol] 281 10*3/uL Normal 150-400 [facility] Comment on above: Order Comment: Speci men Type: BLOOD SPECIMEN Ordering Facility: [facility] Address: [place] [address] Performed By: #### 5 7021-8 #### [facility] CLIA [id number] [address] OF [facility] RBC (Bld) [#/Vol] 4.42 10*6/uL Normal 3.90-5.20 [facility] Comment on above: Order Comment: Speci men Type: BLOOD SPECIMEN Ordering Facility: [facility] Address: [address] [place] [address] Performed By: #### 5 7021-8 #### [facility] CLIA [id number] [address] WBC (Bld) [#/Vol] 8.33 10*3/uL Normal 3.70-11.00 [facility] Comment on above: Order Comment: Speci men Type: BLOOD SPECIMEN Ordering Facility: [facility] Address: [address] [place] [address] Performed By: #### 5 7021-8 #### [facility] CLIA [id number] [address] CONSULTon 06-08-2023 CONSULT HNO ID: [id number] Author: uRi Orosco MD Service: Gastroenterology Author Type: Physician Type: Consults Filed: 06/08/2023 9:10 PM Note Text: GI CONSULT NOTE SERVICE DATE: June 08, 2023 SERVICE TIME: 8:35 AM SUBJECTIVE HPI: 52 yo F with PMHx of gastric ulcer with gastritis, IBS, diverticulitis, ischemic colitis for which she was hospitalized in 12/2021, GERD, ADHD, who presented to the ED this morning for one day Hx of abdominal pain with bloody stools. She describes the abdominal pain as 6/10. She denied fevers, chills, CP, SOB, nausea, vomiting, diarrhea or constipation. Labs showed normal BMP, winnie lactate, WBC 11.2k but Hb normal 14.9 CT A/P showed: Diffuse thickening of the colonic wall which could be due to an infectious or inflammatory etiology. Ischemia should also be considered given patient's history. She was started on flagyl and ciprofloxacin for colitis and protonix 40 IV BID Last EGD in 05/13 showed medium sized hiatal hernia; biopsies showed focal changes of reflux, negative for Riggs's esophagus. Last colonoscopy in 05/13 showed 2 tubular adenomas OBJECTIVE Vital Signs: BP 96/53 Pulse 82 Temp (Src) 97.9 (Oral) Resp 18 Ht 5' 3" (1.60m) Wt 178 lb 8 oz (81.0kg) SpO2 95% LMP 12/01/2016 BMI 31.63 kg/(m2). O2 Therapy: Room Air Physical Exam Performed: GENERAL: well appearing, alert, and in no acute distress HEART: regular rate and rhythm, no murmer, gallop or rub, normal, S1, S2, no lifts, heaves, or thrills, PMI not displaced LUNGS: clear to percussion and auscultation and no rales ABDOMEN: Soft, nontender, bowel sounds normal, no palpable organomegaly, no bruits. EXTREMITY: Normal exam of the extremities. No clubbing, cyanosis, or edema. Data: Recent Labs 06/07/232038 LACT 1.1 Recent Labs 06/08/23 0609 CA 8.7 Recent Labs 06/08/23 0609 MCV 88.2 MCH 29.4 MPV 9.2 Recent Labs 06/08/23 0609 WBC 8.33 RBC 4.42 HB 13.0 HCT 39.0 PLT 281 MCV 88.2 MCH 29.4 MPV 9.2 ABSNEUT 5.08 NEUTP 61.1 LYMPHP 28.8 MONOP 8.0 Recent Labs 06/08/23 0609 GLUC 94 NA 140 K 3.6* CHLOR 107* CO2 25 CREAT 0.85 BUN 8 ANION 8* CA 8.7 Recent Labs 06/08/23 0609 GLUC 94 Recent Labs 06/08/23 0609 HCT 39.0 Recent Labs 06/07/232038 LACT 1.1 Recent Labs 06/08/23 0609 NA 140 K 3.6* CHLOR 107* CO2 25 ANION 8* Recent Labs 06/08/23 0609 PLT 281 Recent Labs 06/08/23 0609 BUN 8 CREAT 0.85 CA 8.7 MG 1.8 Assessment/Plan #GI bleed, likely 2/2 hemorrhagic colitis #Hx of ischemic colitis 12/2021 #Hx of IBS Plan: Plan for flexible sigmoidoscopy tomorrow Will order 2 fleet enemas to be given 1 hr pre-procedure Keep NPO after midnight Continue antibiotics with flagyl and ciprofloxacin for colitis Continue protonix 40 mg IV BID Monitor for further episodes of bloody stools Monitor Hb levels Avoid NSAIDs or anticoagulation Plan of care discussed with: Provider, RN, Patient SIGNATURE: Octaviano Ambriz MD PATIENT NAME: Frank Ventura DATE: June 08, 2023 TIME: 8:35 AM Attending Note I evaluated the patient and personally participated in the correia components. I agree with the resident's findings and plan as documented and have discussed the case and management of the patient's care with the resident. Flex sig. Signature: Rui Orosco MD Date: 06/08/2023 Time: 9:10 PM [facility] ED NOTEon 06-08-2023 ED NOTE HNO ID: [id number] Author: Aramis Izquierdo RN Service: Emergency Medicine Author Type: Registered Nurse Type: ED Notes Filed: 06/08/2023 1:55 AM Note Text: [employer] [facility] at bedside. Report given to transfer team. [facility] ED NOTE HNO ID: [id number] Author: Aramis Izquierdo RN Service: Emergency Medicine Author Type: Registered Nurse Type: ED Notes Filed: 06/08/2023 12:07 AM Note Text: Patient informed about the name of the medication(s), what the medication(s) is(are) for, and what to expect with/from med administration. Patient given opportunity to ask questions. Medication(s) include: Flagyl, Cipro [facility] ED PROV NOTEon 06-08-2023 ED PROV NOTE HNO ID: [id number] Author: MALIKA LIEBERMAN MD Service: Emergency Medicine Author Type: Physician Type: ED Provider Notes Filed: 06/27/2023 19:38 Note Text: ED Provider Note Patient Name: Frank Ventura : 1970 SERVICE DATE: 06/07/23 History Patient presents with: Abdominal Pain Bloody Stool The patient is a 52-year-old female presenting today with complaint of bloody bowel movements. Patient has a history of colitis. She has had a hemorrhagic in the past. She is also had issue of ischemic colitis in December 2021. She states usually she will get bouts of this that she will be able to handle at home where she will get abdominal pain and cramping with some nausea and then diarrhea with intermittent blood. States at this point time she has been unable to handle the symptoms despite having them all day long. States she has had multiple episodes of bloody bowel movements today. She states that they have started to taper off from their initial presentation. Still having significant left lower quadrant abdominal pain which is typically where she gets her normal colitis flares. She denies any fevers or chills. She has been unable to keep any food or fluids down. She has nausea medication at home which she is tried and has not helped. She finally came into the emergency department for evaluation. PAST MEDICAL HISTORY Diagnosis Date Abnormal glandular Papanicolaou smear of cervix Abn. Pap smear (cervix), HPV pos. Abnormal glandular Papanicolaou smear of cervix Acute gastritis without mention of hemorrhage Endometriosis Gastric ulcer, unspecified as acute or chronic, without mention of hemorrhage, perforation, or obstruction Hematemesis Irritable bowel syndrome possible diagnosis Ischemic colitis (HCC) Ovarian cyst PMH - PAST MEDICAL HISTORY OF sacromeningocele PTSD (post-traumatic stress disorder) PAST SURGICAL HISTORY Procedure Laterality Date APPENDECTOMY 2001 6 months later another surgery x 2 acute necrotizing appendicitis COLONOSCOPY 10/17/03 Normal colonoscopy COLONOSCOPY FLX DX W/COLLJ SPEC WHEN PFRMD 04/02/2017 Colonoscopy COLONOSCOPY W/BIOPSY SINGLE/MULTIPLE 01/24/14 focal ulcers x 2 in mid transverse colon, ended at that point with biopsy, BE COLPOSCOPY CERVIX UPPER/ADJACENT VAGINA 06/07/2009 Colposcopy, ascus pap, hpv+ COLPOSCOPY CERVIX UPPER/ADJACENT VAGINA Colposcopy EGD TRANSORAL BIOPSY SINGLE/MULTIPLE gastritis, gastric ulcer EGD TRANSORAL BIOPSY SINGLE/MULTIPLE 01/24/14 minimal duodenitis/gastritis ESOPHAGOGASTRODUODENOSCOPY TRANSORAL DIAGNOSTIC 04/02/2017 EGD LAP HYSTERECTOMY FOR UTERUS 250G OR LESS 12/18/2016 LAPS ABD PRTMANDOMENTUM DX W/WO SPEC BR/WA SPX 1993 approx Laparoscopy PAST SURGICAL HISTORY OF removal of lump on left breast PAST SURGICAL HISTORY OF 2013 laparoscopy TONSILLECTOMY PRIMARY/SECONDARY Tonsillectomy FAMILY HISTORY Problem Relation Age of Onset Cancer Mother brain Stroke Mother due to brain surgery Lipids Father Thyroid Father Heart Father Cancer Maternal Grandmother brain Coronary Artery Disease Paternal Uncle Heart Maternal Uncle Cancer Maternal Aunt lymphoma Social History Tobacco Use Smoking status: Former Packs/day: 0.50 Years: 5.00 Additional pack years: 0.00 Total pack years: 2.50 Types: Cigarettes Quit date: 06/22/2009 Years since quittin.9 Smokeless tobacco: Never Tobacco comments: almost stopped. Substance and Sexual Activity Alcohol use: Not Currently Alcohol/week: 1.0 standard drink of alcohol Types: 1 Glasses of Wine (5oz) per week Comment: Socially Drug use: No Sexual activity: Yes Partners: Male control/protection: None ALLERGIES No Known Allergies Review of Systems Constitutional: Negative for activity change, appetite change, chills, fatigue and fever. HENT: Negative for congestion, ear pain, rhinorrhea and sore throat. Respiratory: Negative for cough and shortness of breath. Cardiovascular: Negative for chest pain and palpitations. Gastrointestinal: Positive for abdominal pain, blood in stool, diarrhea and nausea. Negative for vomiting. Genitourinary: Negative for dysuria, frequency and urgency. Musculoskeletal: Negative for arthralgias and myalgias. Skin: Negative for rash and wound. Neurological: Negative for dizziness and headaches. Psychiatric/Behavioral: Negative for self-injury and suicidal ideas. All other systems reviewed and are negative. Physical Exam Vitals BP Pulse Temp Temp src Resp SpO2 Weight Height 06/07/23191606/07/23191306/07/23191306/07/23191306/07/23191306/07/23191306/07/23191306/07/231913 132/92 (!) 93 36.8 ?C (98.3 ?F) Temporal 18 97 % 79.4 kg (175 lb) 1.6 m (5' 3") Physical Exam Vitals and nursing note reviewed. Constitutional: General: She is not in acute distress. Appearance: She is well-developed. HENT: Head: Normocep (more content not included)... Normal [facility] HISTORY PHYSICALon 3 HISTORY PHYSICAL HNO ID: [id number] Author: Colby Toth MD Service: General Internal Medicine Author Type: Physician Type: HANDP Filed: 06/08/2023 8:00 AM Note Text: DEPARTMENT OF HOSPITAL MEDICINE HISTORY AND PHYSICAL EXAM SERVICE DATE: 06/08/2023 SERVICE TIME: 5:32 AM Primary Care Physician: Nadine Banerjee MD NIGHT AND WEEKEND COVERAGE: From 7am - 7pm, please call Sound After 7pm, please call cross cover pager #[phone] Subjective CHIEF COMPLAINT: Abdominal pain, bloody stools HPI: This is a 52 year old female with hx of gastritis, gastric ulcer, IBS, ischemic colitis, PTSD, and an ovarian cyst, who presents with one day of abdominal pain and bloody stools. Pt denies headache, fever, chills, vision changes, swallowing problems, neck pain, chest pain, shortness of breath, cough, flank pain, nausea, vomiting, constipation, urinary problems, muscle pain or weakness, numbness, tingling, or joint pain/swelling. No other associated symptoms. No other known aggravating or relieving factors. She is afebrile and HD stable, 95% on RA. BMP was normal, WBC 11.24, hgb 14.9, plt 319, CT AP showed the following: Diffuse thickening of the colonic wall which could be due to an infectious or inflammatory etiology. Ischemia should also be considered given patient's history" PAST MEDICAL HISTORY Diagnosis Date Abnormal glandular Papanicolaou smear of cervix Abn. Pap smear (cervix), HPV pos. Abnormal glandular Papanicolaou smear of cervix Acute gastritis without mention of hemorrhage Endometriosis Gastric ulcer, unspecified as acute or chronic, without mention of hemorrhage, perforation, or obstruction Hematemesis Irritable bowel syndrome possible diagnosis Ischemic colitis (HCC) Ovarian cyst PMH - PAST MEDICAL HISTORY OF sacromeningocele PTSD (post-traumatic stress disorder) PAST SURGICAL HISTORY Procedure Laterality Date APPENDECTOMY 2001 6 months later another surgery x 2 acute necrotizing appendicitis COLONOSCOPY 10/17/03 Normal colonoscopy COLONOSCOPY FLX DX W/COLLJ SPEC WHEN PFRMD 04/02/2017 Colonoscopy COLONOSCOPY W/BIOPSY SINGLE/MULTIPLE 01/24/14 focal ulcers x 2 in mid transverse colon, ended at that point with biopsy, BE COLPOSCOPY CERVIX UPPER/ADJACENT VAGINA 06/07/2009 Colposcopy, ascus pap, hpv+ COLPOSCOPY CERVIX UPPER/ADJACENT VAGINA Colposcopy EGD TRANSORAL BIOPSY SINGLE/MULTIPLE gastritis, gastric ulcer EGD TRANSORAL BIOPSY SINGLE/MULTIPLE 01/24/14 minimal duodenitis/gastritis ESOPHAGOGASTRODUODENOSCOPY TRANSORAL DIAGNOSTIC 04/02/2017 EGD LAP HYSTERECTOMY FOR UTERUS 250G OR LESS 12/18/2016 LAPS ABD PRTMANDOMENTUM DX W/WO SPEC BR/WA SPX 1993 approx Laparoscopy PAST SURGICAL HISTORY OF removal of lump on left breast PAST SURGICAL HISTORY OF 2013 laparoscopy TONSILLECTOMY PRIMARY/SECONDARY Tonsillectomy FAMILY HISTORY Problem Relation Age of Onset Cancer Mother brain Stroke Mother due to brain surgery Lipids Father Thyroid Father Heart Father Cancer Maternal Grandmother brain Coronary Artery Disease Paternal Uncle Heart Maternal Uncle Cancer Maternal Aunt lymphoma Social History Tobacco Use Smoking status: Former Packs/day: 0.50 Years: 5.00 Additional pack years: 0.00 Total pack years: 2.50 Types: Cigarettes Quit date: 06/22/2009 Years since quittin.9 Smokeless tobacco: Never Tobacco comments: almost stopped. Substance Use Topics Alcohol use: Not Currently Alcohol/week: 1.0 standard drink of alcohol Types: 1 Glasses of Wine (5oz) per week Comment: Socially Drug use: No HOME MEDICATIONS: Prior to Admission Medications Prescriptions Last Dose Informant Patient Reported? Taking? Amphetamine-Dextroamphetam ine (ADDERALL) 15 mg ORAL tablet Past Week Yes Yes Sig: Take 1 tablet by mouth once daily. IBUPROFEN IB ORAL 06/07/2023 Yes Yes Sig: Take 3 tablets by mouth every 4 hours as needed. Omeprazole (PRILOSEC) 40 mg capsule No No Sig: Take 1 capsule by mouth once daily. docusate sodium (COLACE) 100 mg capsule No No Sig: Take 1 capsule by mouth twice daily. hyoscyamine sulfate (NULEV) 0.125 mg ODT 06/07/2023 Yes Yes Sig: Take 0.125 mg by mouth every 4 hours. ibuprofen (MOTRIN) 600 mg tablet 06/07/2023 No Yes Sig: Take 1 tablet by mouth every 6 hours. ondansetron (ZOFRAN) 4 mg tablet Yes No Sig: Take 4 mg by mouth. TAKE ONE TABLET BY MOUTH EVERY 6 HOURS NEEDED FOR NAUSEA oxyCODONE IR (ROXICODONE) 5 mg immediate release tablet No No Sig: Take 1-2 tablets by mouth every 3 hours as needed. semaglutide (OZEMPIC SUBCUTANEOUS) Past Week Yes Yes Sig: Inject subcutaneously. Facility-Administered Medications: None ALLERGIES No Known Allergies REVIEW OF SYSTEM: All ROS are negative except those noted in HPI Objective PHYSICAL EXAM: BP 107/65 Pulse 77 Temp (Src) 98.2 (Oral) Resp 18 Ht 5' 3" (1.60m) Wt 178 lb 8 oz (81.0kg) SpO2 95% LMP 12/01/2016 (more content not included)... Normal [facility] Magnesium SerPl-mCncon 06-08 Magnesium [Mass/Vol] 1.8 mg/dL Normal 1.7-2.3 [facility] Comment on above: Order Comment: Speci men Type: BLOOD SPECIMEN Ordering Facility: [facility] Address: [address] [place] [address] Performed By: #### 1 9123-9, 02385-6 #### [facility] CLIA [id number] [address] [place] [address] NUTRITIONon 06-08-2023 NUTRITION HNO ID: [id number] Author: Pricilla Lynch RD Service: Nutrition Therapy Author Type: Registered Dietitian Type: Nutrition Filed: 06/08/2023 12:11 PM Note Text: NUTRITION THERAPY INITIAL ASSESSMENT SERVICE DATE: 06/08/2023 SERVICE TIME: 12:02 Nutrition Assessment: Recommended Malnutrition Diagnosis: No Malnutrition Identified Nutrition Diagnosis: Problem: Suboptimal oral intake Related to: Acute illness As evidenced by: Pain, Nausea Estimated kilocalorie needs: 7024-7318 Calorie Calculation Method: 25-35 kcals/kg, [place] Body Weight Estimated protein needs (grams): 52-62 Grams protein determined by: 1.0 - 1.2 g/kg Care Plan: Follow for diet advancement to goal Monitor and Evaluation: Meet greater than 75% of estimated needs, Monitor fluid/electrolyte balance, Monitor labs, I/Os, vital signs, weight, Monitor bowel function HPI: 52 year old female admits with abdominal pain, concern for ischemic/ hemorrhagic colitis. GI consult pending. Labs/ medications reviewed Intake History: Nutrition Intake Prior to Admission: Greater than 75% estimated energy needs greater than 7 days ("I think there's been a misunderstanding -my appetite is good") Current Nutrition Intake: NPO Current Intake Over time: (9H admit) Diet Orders (From admission, onward) Start Ordered 06/08/23 0545 DIET NPO START NOW Question Answer Comment NPO Restrictions EXCEPT MEDS NPO Restrictions EXCEPT SIPS OF WATER 06/08/23 0543 Anthropometrics: Height: 160 cm (5' 3") Weight: 81 kg (178 lb 8 oz) Dosing Weight: 52.2 kg (115 lb) 55 lb weight gain since hysterectomy in 2017; pt reports she has been trying to lose wt since Usual Weight Obtained From: Patient Body mass index is 31.62 kg/m?. Weight change percentage over time: 41 lb wt gain since 2017 noted per records Weight Change: Weight gain Physical Exam: Subcutaneous fat loss: No fat loss Muscle loss: No muscle loss Potential micronutrient deficiency: No deficiency identified Edema/Ascites: No edema GI Symptoms: Nausea, Vomiting, Abdominal pain Functional Status: Unable to assess Potential Signs of Inflammation: Chronic condition, Leukocytosis, Imaging studies MNT Billing: $ Initial Assessment: 1-15 minutes SIGNATURE: Pricilla Lynch RD PATIENT NAME: Frank Ventura DATE: June 08, 2023 TIME: 12:08 PM Normal [facility] Basic metabolic 2000 panelon 06-07-2023 Anion gap [Moles/Vol] 12 mmol/L Normal 9-18 [facility] Comment on above: Order Comment: Don skelton Type: BLOOD SPECIMEN Ordering Facility: [facility] Address: [address] [place] [address] Performed By: #### 2 4321-2 #### [facility] CLIA [id number] [address] [place] [address] [place] Calcium [Mass/Vol] 9.5 mg/dL Normal 8.5-10.2 [facility] Comment on above: Order Comment: Speci men Type: BLOOD SPECIMEN Ordering Facility: [facility] Address: [address] [place] [address] Performed By: #### 2 4321-2 #### [facility] CLIA [id number] [address] [place] [address] [place] Chloride [Moles/Vol] 102 mmol/L Normal 97-105 [facility] Comment on above: Order Comment: Speci men Type: BLOOD SPECIMEN Ordering Facility: [facility] Address: [address] [place] [address] Performed By: #### 2 4321-2 #### [facility] CLIA [id number] [address] [place] [address] [place] CO2 [Moles/Vol] 25 mmol/L Normal 22-30 [facility] Comment on above: Order Comment: Speci men Type: BLOOD SPECIMEN Ordering Facility: [facility] Address: [address] [place] [address] Performed By: #### 2 4321-2 #### [facility] CLIA [id number] [address] [place] [address] [place] Creatinine [Mass/Vol] 0.82 mg/dL Normal 0.58-0.96 [facility] Comment on above: Order Comment: Speci men Type: BLOOD SPECIMEN Ordering Facility: [facility] Address: [address] [place] [address] Performed By: #### 2 4321-2 #### [facility] CLIA [id number] [address] [place] [address] [facility] [place] Creatinine and Glomerular filtration rate.predicted panel (S/P/Bld) 86 mL/min/1.73m??? Normal >=60 [facility] Comment on above: Order Comment: Speci men Type: BLOOD SPECIMEN Ordering Facility: [facility] Address: [address] [place] [address] Result Comment: Shannon mated Glomerular Filtration Rate (eGFR) is calculated using the 2020 CKD-EPI creatinine equation. This equation utilizes serum creatinine, sex, and age as parameters. The creatinine assay has traceable calibration to isotope dilution-mass spectrometry. Refer to KDIGO guidelines for clinical interpretation. In patients with unstable renal function, e.g. those with acute kidney injury, the eGFR may not accurately reflect actual GFR. Performed By: #### 2 4321-2 #### [facility] CLIA [id number] [address] [place] [address] [place] Glucose [Mass/Vol] 100 mg/dL High 74-99 [facility] Comment on above: Order Comment: Don skelton Type: BLOOD SPECIMEN Ordering Facility: [facility] Address: [address] [place] [address] Result Comment: The [place] Diabetes Association (ADA) provides guidance for cutoff values for fasting glucose and random glucose. The ADA defines fasting as no caloric intake for at least 8 hours. Fasting plasma glucose results between 100 to 125 mg/dL indicate increased risk for diabetes (prediabetes). Fasting plasma glucose results greater than or equal to 126 mg/dL meet the criteria for diagnosis of diabetes. In the absence of unequivocal hyperglycemia, results should be confirmed by repeat testing. In a patient with classic symptoms of hyperglycemia or hyperglycemic crisis, random plasma glucose results greater than or equal to 200 mg/dL meet the criteria for diagnosis of diabetes. Reference: Standards of Medical Care in Diabetes 2016, [place] [employer] Association. Diabetes Care. 2016.39(Suppl 1). Performed By: #### 2 4321-2 #### [facility] CLIA [id number] [address] [place] [address] [place] Potassium [Moles/Vol] 4.1 mmol/L Normal 3.7-5.1 [facility] Comment on above: Order Comment: Don skelton Type: BLOOD SPECIMEN Ordering Facility: [facility] Address: [address] [place] [address] Performed By: #### 2 4321-2 #### [facility] CLIA [id number] [address] [place] [address] [place] Sodium [Moles/Vol] 139 mmol/L Normal 136-144 [facility] Comment on above: Order Comment: Don skelton Type: BLOOD SPECIMEN Ordering Facility: [facility] Address: [address] [place] [address] Performed By: #### 2 4321-2 #### [facility] CLIA [id number] [address] [place] [address] [place] Urea nitrogen [Mass/Vol] 12 mg/dL Normal 7-21 [facility] Comment on above: Order Comment: Don skelton Type: BLOOD SPECIMEN Ordering Facility: [facility] Address: [address] [place] [address] Performed By: #### 2 4321-2 #### [facility] CLIA [id number] [address] [place], [place] [id number] [place] CBC W Auto Differential pane l (Bld)on 06-07-2023 Basophils (Bld) [#/Vol] 0.04 10*3/uL Normal <0.11 [facility] Comment on above: Order Comment: Speci men Type: BLOOD SPECIMEN Ordering Facility: [facility] Address: [address] [place] [address] Performed By: #### 5 7021-8 #### [facility] CLIA [id number] [address] [place] [address] [place] Basophils/100 WBC (Bld) 0.4 % Normal [facility] Comment on above: Order Comment: Speci men Type: BLOOD SPECIMEN Ordering Facility: [facility] Address: [address] [place] [address] Performed By: #### 5 7021-8 #### [facility] CLIA [id number] [address] [place] [address] [place] Differential cell count method Nom (Bld) Auto Normal [facility] Comment on above: Order Comment: Speci men Type: BLOOD SPECIMEN Ordering Facility: [facility] Address: [address] [place] [address] Performed By: #### 5 7021-8 #### [facility] CLIA [id number] [address] [place] [address] [place] Eosinophils (Bld) [#/Vol] 0.05 10*3/uL Normal <0.46 [facility] Comment on above: Order Comment: Speci men Type: BLOOD SPECIMEN Ordering Facility: [facility] Address: [address] [place] [address] Performed By: #### 5 7021-8 #### [facility] CLIA [id number] [address] [place] [address] [place] Eosinophils/100 WBC (Bld) 0.4 % Normal [facility] Comment on above: Order Comment: Speci men Type: BLOOD SPECIMEN Ordering Facility: [facility] Address: [address] [place] [address] Performed By: #### 5 7021-8 #### [facility] CLIA [id number] [address] [place] [address] [place] Erythrocyte distribution width (RBC) [Ratio] 12.7 % Normal 11.5-15.0 [facility] Comment on above: Order Comment: Speci men Type: BLOOD SPECIMEN Ordering Facility: [facility] Address: [address] [place] [address] Performed By: #### 5 7021-8 #### [facility] CLIA [id number] [address] [place] [address] [place] Hematocrit (Bld) [Volume fraction] 44.9 % Normal 36.0-46.0 [facility] Comment on above: Order Comment: Speci men Type: BLOOD SPECIMEN Ordering Facility: [facility] Address: [address] [place] [address] Performed By: #### 5 7021-8 #### [facility] CLIA [id number] [address] [place] [address] [place] Hemoglobin (Bld) [Mass/Vol] 14.9 g/dL Normal 11.5-15.5 [facility] Comment on above: Order Comment: Speci men Type: BLOOD SPECIMEN Ordering Facility: [facility] Address: [address] [place] [address] Performed By: #### 5 7021-8 #### [facility] CLIA [id number] [address] [place] [address] [place] Immature granulocytes (Bld) [#/Vol] 10*3/uL Normal <0.10 [facility] Comment on above: Order Comment: Speci men Type: BLOOD SPECIMEN Ordering Facility: [facility] Address: [address] [place] [address] Performed By: #### 5 7021-8 #### [facility] CLIA [id number] [address] [place] [address] [place] Immature granulocytes/100 WBC (Bld) 0.1 % Normal [facility] Comment on above: Order Comment: Speci men Type: BLOOD SPECIMEN Ordering Facility: [facility] Address: [address] [place] [address] Performed By: #### 5 7021-8 #### [facility] CLIA [id number] [address] [place] [address] [place] Lymphocytes (Bld) [#/Vol] 1.19 10*3/uL Normal 1.00-4.00 [facility] Comment on above: Order Comment: Speci men Type: BLOOD SPECIMEN Ordering Facility: [facility] Address: [address] [place] [address] Performed By: #### 5 7021-8 #### [facility] CLIA [id number] [address] Lymphocytes/100 WBC (Bld) 10.6 % Normal [facility] Comment on above: Order Comment: Speci men Type: BLOOD SPECIMEN Ordering Facility: [facility] Address: [address] [place] [address] Performed By: #### 5 7021-8 #### [facility] CLIA [id number] [address] [place] [address] [place] MCH (RBC) [Entitic mass] 29.2 pg Normal 26.0-34.0 [facility] Comment on above: Order Comment: Speci men Type: BLOOD SPECIMEN Ordering Facility: [facility] Address: [address] [place] [address] Performed By: #### 5 7021-8 #### [facility] CLIA [id number] [address] [place] MCHC (RBC) [Mass/Vol] 33.2 g/dL Normal 30.5-36.0 [facility] Comment on above: Order Comment: Speci men Type: BLOOD SPECIMEN Ordering Facility: [facility] Address: [address] [place] [address] Performed By: #### 5 7021-8 #### [facility] CLIA [id number] [address] [place] [address] [place] MCV (RBC) [Entitic vol] 87.9 fL Normal 80.0-100.0 [facility] Comment on above: Order Comment: Speci men Type: BLOOD SPECIMEN Ordering Facility: [facility] Address: [address] [place] [address] Performed By: #### 5 7021-8 #### [facility] CLIA [id number] [address] [place] [address] [place] Monocytes (Bld) [#/Vol] 0.52 10*3/uL Normal <0.87 [facility] Comment on above: Order Comment: Speci men Type: BLOOD SPECIMEN Ordering Facility: [facility] Address: [address] [place] [address] Performed By: #### 5 7021-8 #### [facility] CLIA [id number] [address] [place] [address] [place] Monocytes/100 WBC (Bld) 4.6 % Normal [facility] Comment on above: Order Comment: Speci men Type: BLOOD SPECIMEN Ordering Facility: [facility] Address: [address] [place] [address] Performed By: #### 5 7021-8 #### [facility] CLIA [id number] [address] [place] [address] [place] Neutrophils (Bld) [#/Vol] 9.43 10*3/uL High 1.45-7.50 [facility] Comment on above: Order Comment: Speci men Type: BLOOD SPECIMEN Ordering Facility: [facility] Address: [address] [place] [address] Performed By: #### 5 7021-8 #### [facility] CLIA [id number] [address] [place] [address] [place] Neutrophils/100 WBC (Bld) 83.9 % Normal [facility] Comment on above: Order Comment: Speci men Type: BLOOD SPECIMEN Ordering Facility: [facility] Address: [address] [place] [address] Performed By: #### 5 7021-8 #### [facility] CLIA [id number] [address] [place] [address] [place] Nucleated RBC (Bld) [#/Vol] Normal [facility] Comment on above: Order Comment: Speci men Type: BLOOD SPECIMEN Ordering Facility: [facility] Address: [address] [place] [address] Performed By: #### 5 7021-8 #### [facility] CLIA [id number] [address] [place] [address] [place] Nucleated RBC/100 WBC (Bld) [Ratio] Normal [facility] Comment on above: Order Comment: Speci men Type: BLOOD SPECIMEN Ordering Facility: [facility] Address: [address] [place] [address] Performed By: #### 5 7021-8 #### [facility] CLIA [id number] [address] [place] [address] [place] Platelet mean volume (Bld) [Entitic vol] 9.0 fL Normal 9.0-12.7 [facility] Comment on above: Order Comment: Speci men Type: BLOOD SPECIMEN Ordering Facility: [facility] Address: [address] [place] [address] Performed By: #### 5 7021-8 #### [facility] CLIA [id number] [address] [place] [address] [place] Platelets (Bld) [#/Vol] 319 10*3/uL Normal 150-400 [facility] Comment on above: Order Comment: Speci men Type: BLOOD SPECIMEN Ordering Facility: [facility] Address: [address] [place] [address] Performed By: #### 5 7021-8 #### [facility] CLIA [id number] [address] [place] [address] [place] RBC (Bld) [#/Vol] 5.11 10*6/uL Normal 3.90-5.20 [facility] Comment on above: Order Comment: Speci men Type: BLOOD SPECIMEN Ordering Facility: [facility] Address: [place] [address] Performed By: #### 5 7021-8 #### [facility] CLIA [id number] [address] [place] [address] [place] WBC (Bld) [#/Vol] 11.24 10*3/uL High 3.70-11.00 [facility] Comment on above: Order Comment: Speci men Type: BLOOD SPECIMEN Ordering Facility: [facility] Address: [place] [address] Performed By: #### 5 7021-8 #### [facility] [facility] CLIA [id number] [address] [place] [address] [facility] CTA ABDOMEN W IVCONon 2022 CTA ABDOMEN W IVCON * * *Final Report* * * DATE OF EXAM: Jun 07 2023 9:13PM [facility] 0121 - CTA ABDOMEN W IVCON / PROCEDURE REASON: Other primary vasculopathy * * * * Physician Interpretation * * * * CT ANGIOGRAM OF ABDOMEN AND PELVIS HISTORY: Other primary vasculopathy blood in stool Patient has pain out of proportion to exam with a history of ischemic colitis. Patient presents with abdominal pain and frankly bloody stools. blood in stool TECHNIQUE: High-resolution contrast-enhanced helical CT of the abdomen, pelvis and both lower extremities was performed timed to the arterial phase. 3-D processing was provided 100 ml of Omnipaque 350 was injected IV during the examination. The study was performed without oral contrast. The patient tolerated the injection without complications. Dose-Length Product (DLP): 713.20 mGy*cm. CT Dose Reduction Employed: Automated exposure control(AEC) and iterative recon COMPARISON: None. RESULT: Limitations: None. CT ABDOMEN: Liver: No mass. Biliary: No bile duct dilation. Spleen: No mass. No splenomegaly. Pancreas: No mass or duct dilation. Adrenals: No mass. Kidneys: Unremarkable. GI tract: Diffuse thickening of the colonic wall. Colonic diverticulosis. Appendectomy. Lymph nodes: No abdominal or pelvic lymphadenopathy. Mesentery/Peritoneum: No ascites or mass. Vasculature: The celiac axis and SMA are patent. The portal vein and branches, splenic vein, SMV, and hepatic veins are patent. CT PELVIS: No mass, ascites or fluid collection. Bones/Soft Tissues: Expansile hypodensity within sacrum consistent with known metastatic collecting system sacral meningocele. IMPRESSION: Diffuse thickening of the colonic wall which could be due to an infectious or inflammatory etiology. Ischemia should also be considered given patient's history. [employer] Transcribe Date/Time: Jun 07 2023 9:19P Dictated by : STACEY GUNDERSON MD This examination was interpreted and the report reviewed and electronically signed by: STACEY GUNDERSON MD on Jun 07 2023 9:29PM EST [id number] Normal [facility] ED NOTEon 06-07-2023 ED NOTE HNO ID: [id number] Author: Terry Thomas Service: Emergency Medicine Author Type: ? Type: ED Notes Filed: 06/08/2023 12:55 AM Note Text: Ambulated patient to bathroom. Pt gait steady and tolerated pain well. Pt urinated in bathroom and returned to bed and reported pain 6/10. Urine appeared yellow, clear, no odor or blood present. Normal [facility] ED NOTE HNO ID: [id number] Author: Aramis Izquierdo RN Service: Emergency Medicine Author Type: Registered Nurse Type: ED Notes Filed: 06/07/2023 8:57 PM Note Text: Patient informed about the name of the medication(s), what the medication(s) is(are) for, and what to expect with/from med administration. Patient given opportunity to ask questions. Medication(s) include: Lactated Ringers, Zofran, Morphine. Normal [facility] Lactate (Bld) [Moles/Vol]on 06-07-2023 Lactate [Moles/Vol] 1.1 mmol/L Normal 0.5-2.2 [facility] Comment on above: Order Comment: Speci men Type: BLOOD SPECIMEN Ordering Facility: [facility] Address: [address] [place] [address] Performed By: #### 3 2693-4 #### [facility] CLIA [id number] [address] [place] [id number] [place] Absolute lymphocyte counton 02-14-2022 Lymphocytes Auto (Unsp spec) [#/Vol] 1.82 10*3/uL 0.83-4.51 [facility] Work Phone: Basophil percentageon 2021 Basophils/100 WBC (Bld) 0.8 % 0-1 [facility] Work Phone: Bilirubin [Mass/Vol] 0.30 mg/dL 0.20-1.00 [facility] Work Phone: Comment on above: For patients on eltr ombopag therapy, use of Dimension Mccarley TBIL is not recommended. Chloride [Moles/Vol] 104 mmol/L 98-107 [facility] Work Phone: Eosinophils/100 WBC (Bld) 1.6 % 0-5 [facility] Work Phone: Glucose [Mass/Vol] 83 mg/dL 74-106 [facility] Work Phone: Neutrophils (Bld) [#/Vol] 3.7 10*3/uL 2.0-7.7 [facility] Work Phone: Neutrophils/100 WBC (Bld) 59.5 % 47-70 [facility] Work Phone: Potassium [Moles/Vol] 3.9 mmol/L 3.5-5.1 [facility] Work Phone: Protein [Mass/Vol] 7.6 g/dL 6.4-8.2 [facility] Work Phone: Sodium [Moles/Vol] 138 mmol/L 136-145 [facility] Work Phone: WBC (Bld) [#/Vol] 6.2 10*3/uL 4.4-11.0 [facility] Work Phone: Blood erythrocytes count (nu mber/volume)on 02-14-2022 RBC (Bld) [#/Vol] 5.14 10*6/uL 4.2-5.4 [facility] Work Phone: Blood hemoglobin measurement (mass/volume)on 02-14-2022 Hemoglobin (Bld) [Mass/Vol] 14.7 g/dL 12.0-15.0 [facility] Work Phone: Blood lymphocytes/100 leukoc yteson 02-14-2022 Lymphocytes/100 WBC (Bld) 29.5 % 19-41 [facility] Work Phone: [phone] Blood monocytes/100 leukocyt eson 02-14-2022 Monocytes/100 WBC (Bld) 8.1 % 0-10 [facility] Work Phone: [phone] Blood platelet mean volumeon 02-14-2022 Platelet mean volume (Bld) [Entitic vol] 9.2 fL 6.2-12.0 [facility] Work Phone: Determination of erythrocyte mean corpuscular volume (MCV)on 02-14-2022 MCV (RBC) [Entitic vol] 87.2 fL 81-99 [facility] Work Phone: [phone] Erythrocyte sedimentation ra jess 02-14-2022 ESR (Bld) [Velocity] 25 mm/h 0-30 [facility] Work Phone: [phone] Hematocrit Auto (Bld) [Volum e fraction]on 02-14-2022 Hematocrit (Bld) [Volume fraction] 44.8 % 37-47 [facility] Work Phone: [phone] Laboratory - Chemistry and C hemistry - challengeon 02-14-2022 ALP [Catalytic activity/Vol] 129 U/L 45-117 [facility] Work Phone: [phone] ALT [Catalytic activity/Vol] 37 U/L 13-56 [facility] Work Phone: CK [Catalytic activity/Vol] 61 U/L 26-192 [facility] Work Phone: [phone] CO2 [Moles/Vol] 27.0 mmol/L 21.0-32.0 [facility] Work Phone: Globulin (S) [Mass/Vol] 4.0 g/dL 2.2-4.2 [facility] Work Phone: [phone] Urea nitrogen/Creatinine [Mass ratio] 17.7 mg/mg 10-20 [facility] Work Phone: [phone] Laboratory - Hematology and Cell countson 02-14-2022 Erythrocyte distribution width (RBC) [Entitic vol] 39.7 fL 35.1-43.9 [facility] Work Phone: [phone] Erythrocyte distribution width (RBC) [Ratio] 12.5 % 11.6-14.6 [facility] Work Phone: [phone] Immature granulocytes/100 WBC (Bld) 0.500 % 0.0-0.9 [facility] Work Phone: [phone] Comment on above: IG% - Immature Granu locytes (promyelocytes, myelocytes and metamyelocytes) > 1% indicates that a LEFT SHIFT is Present. MCH (RBC) [Entitic mass] 28.6 pg 27.0-32.0 [facility] Work Phone: [phone] Nucleated RBC/100 WBC (Bld) [Ratio] 0 % 0-5 [facility] Work Phone: [phone] MCHC Auto (RBC) [Mass/Vol]on 02-14-2022 MCHC (RBC) [Mass/Vol] 32.8 g/dL 32-36 [facility] Work Phone: [phone] Panel Informationon 02-14 Estimated GFR (MDRD) Amer 91 mL/min >60 [facility] Work Phone: [phone] Comment on above: GFR Calc Estimated GFR (MDRD) Non-Af Amer 75 mL/min >60 [facility] Work Phone: [phone] Comment on above: Non- GFR Calc Platelets bldon 02-14-2022 Platelets (Bld) [#/Vol] 294 10*3/uL 150-450 [facility] Work Phone: [phone] Serum or plasma C reactive p rotein measurement (mass/volume)on 02-14-2022 CRP [Mass/Vol] 4.04 mg/L 0.0-3.0 [facility] Work Phone: Comment on above: C-Reactive Protein ( CRP) provides useful information for thediagnosis, therapy and monitoring of inflammatory processesand associated diseases. For the evaluation of Relative Riskfor Cardiovascular Disease, a High Sensitivity CRP (HSCRP)should be ordered. Serum or plasma albumin marnie urement (mass/volume)on 02-14-2022 Albumin [Mass/Vol] 3.6 g/dL 3.2-5.0 [facility] Work Phone: [phone] Serum or plasma albumin/glob ulin mass ratioon 02-14-2022 Albumin/Globulin [Mass ratio] 0.9 {ratio} 0.9-2.4 [facility] Work Phone: [phone] Serum or plasma calcium marnie urement (mass/volume)on 02-14-2022 Calcium [Mass/Vol] 9.3 mg/dL 8.5-10.1 [facility] Work Phone: [phone] Serum or plasma creatinine m easurement (mass/volume)on 02-14-2022 Creatinine [Mass/Vol] 0.85 mg/dL 0.55-1.02 [facility] Work Phone: Comment on above: The validity of the calculated GFR & GFRAA in patients over 70 years has not been determined. Clinical correlation is essential. Serum or plasma urea nitroge n measurement (mass/volume)on 02-14-2022 Urea nitrogen [Mass/Vol] 15 mg/dL 7-18 [facility] Work Phone: [phone] Thin prep Papanicolaou smear with manual screeningon 02-14-2022 Thin prep Papanicolaou smear with manual screening 21 U/L 15-37 [facility] Work Phone: [phone] Thin prep Papanicolaou smear with manual screening 7 5-15 [facility] Work Phone: [phone] Thin prep Papanicolaou smear with manual screening 148 U/L 84-246 [facility] Work Phone: [phone] COMPREHENSIVE METABOLIC PANE [place] 01-21-2022 Albumin [Mass/Vol] 4.1 g/dL Normal 3.6-5.1 [facility] Comment on above: Performed By: #### 1 0231, 7600 #### [facility] of [address], [address] [place] [address] Software Systems Analyst: Lj Sanchez MD Albumin/Globulin [Mass ratio] 1.5 {ratio} Normal 1.0-2.5 [facility] Comment on above: Performed By: #### 1 0231, 7600 #### [facility] of [address], [address] [place] [address] [employer] Analyst: Lj Sanchez MD ALP [Catalytic activity/Vol] 110 U/L Normal 37-153 [facility] Comment on above: Performed By: #### 1 0231, 7600 #### [facility] of [address], [address] [place] [address] [employer] Systems Analyst: Lj Sanchez MD ALT [Catalytic activity/Vol] 27 U/L Normal 6-29 [facility] Comment on above: Performed By: #### 1 0231, 7600 #### [facility] of [address], [address] [place] [address] [employer] Analyst: Lj Sanchez MD AST [Catalytic activity/Vol] 21 U/L Normal 10-35 [facility] Comment on above: Performed By: #### 1 0231, 7600 #### [facility] of [address], [address] [place] [address] [employer] Systems Analyst: Lj Sanchez MD Bilirubin [Mass/Vol] 0.3 mg/dL Normal 0.2-1.2 [facility] Comment on above: Performed By: #### 1 0231, 7600 #### [facility] of [address], [address] [place] [address] Software Systems Analyst: Lj Sanchez MD BUN/CREATININE RATIO NOT APPLICABLE Normal 6-22 [facility] Comment on above: Performed By: #### 1 0231, 7600 #### [facility] of [address], [address] [place] [address] Software Systems Analyst: Lj Sanchez MD Calcium [Mass/Vol] 9.5 mg/dL Normal 8.6-10.4 [facility] Comment on above: Performed By: #### 1 023, 7600 #### [facility] [place] [address] Software Systems Analyst: Lj Sanchez MD Chloride [Moles/Vol] 107 mmol/L Normal 98-110 [facility] Comment on above: Performed By: #### 1 023, 7600 #### [facility] [address], [address] [place] [address] Software Systems Analyst: Lj Sanchez MD CO2 [Moles/Vol] 26 mmol/L Normal 20-32 [facility] Comment on above: Performed By: #### 1 023, 7600 #### [facility] [place] [address] Software Systems Analyst: Lj Sanchez MD Creatinine [Mass/Vol] 0.74 mg/dL Normal 0.50-1.03 [facility] Comment on above: Performed By: #### 1 023, 7600 #### [facility] [place] [address] Software Systems Analyst: Lj Sanchez MD GFR/1.73 sq M.predicted among non-blacks MDRD (S/P/Bld) [Vol rate/Area] 98 mL/min/{1.73_m2} Normal > OR = 60 [facility] Comment on above: Result Comment: The eGFR is based on the CKD-EPI 2021 equation. To calculate the new eGFR from a previous Creatinine or Cystatin C result, go to https://www.kidney.org/professionals/ kdoqi/gfr%5Fcalculator Performed By: #### 1 023, 7600 #### [facility] [place] [address] Software Systems Analyst: Lj Sanchez MD Globulin (S) [Mass/Vol] 2.7 g/dL Normal 1.9-3.7 [facility] Comment on above: Performed By: #### 1 0231, 7600 #### [facility] of [address], [address] [place] [address] Software Systems Analyst: Lj Sanchez MD Glucose [Mass/Vol] 89 mg/dL Normal 65-99 [facility] Comment on above: Result Comment: Fasting reference interval Performed By: #### 1 023, 7600 #### [facility] of [address], [address] [place] [address] Software Systems Analyst: Lj Sanchez MD Potassium [Moles/Vol] 4.3 mmol/L Normal 3.5-5.3 [facility] Comment on above: Performed By: #### 1 023, 7600 #### [facility] of [address], [address] [place] [address] Software Systems Analyst: Lj Sanchez MD Protein [Mass/Vol] 6.8 g/dL Normal 6.1-8.1 [facility] Comment on above: Performed By: #### 1 023, 7600 #### [facility] of [address], [address] [place] [address] Software Systems Analyst: Lj Sanchez MD Sodium [Moles/Vol] 141 mmol/L Normal 135-146 [facility] Comment on above: Performed By: #### 1 023, 7600 #### [facility] of [address], [address] [place] [address] Software Systems Analyst: Lj Sanchez MD Urea nitrogen [Mass/Vol] 18 mg/dL Normal 7-25 [facility] Comment on above: Performed By: #### 1 023, 7600 #### [facility] of [address], [address] [place] [address] Software Systems Analyst: Lj Sanchez MD LIPID PANEL, STANDARD 0 Cholesterol [Mass/Vol] 309 mg/dL High <200 [facility] Comment on above: Performed By: #### 1 0231, 7600 #### [facility] of [address], [address] [place] [address] Software Systems Analyst: Lj Sanchez MD Cholesterol in HDL [Mass/Vol] 61 mg/dL Normal > OR = 50 [facility] Comment on above: Performed By: #### 1 4121, 9350 #### [place] [address] Software Systems Analyst: Lj Sanchez MD Cholesterol in LDL [Mass/Vol] 211 mg/dL High [facility] Comment on above: Result Comment: LDL- C levels > or = 190 mg/dL may indicate familial hypercholesterolemia (FH). Clinical assessment and measurement of blood lipid levels should be considered for all first degree relatives of patients with an FH diagnosis. For questions about testing for familial hypercholesterolemia, please call [employer] at 1.Alex and Ani5.[employer].INFO. Janell Sommer, et al. J National Lipid Association Recommendations for Patient-Centered Management of Dyslipidemia: Part 1 Journal of Clinical Lipidology 2015;9(2), 129-169. Reference range: <100 Desirable range <100 mg/dL for primary prevention; <70 mg/dL for patients with CHD or diabetic patients with > or = 2 CHD risk factors. LDL-C is now calculated using the Xavier-Savannah calculation, which is a validated novel method providing better accuracy than the Friedewald equation in the estimation of LDL-C. Xavier SS et al. LOKESH. 2013;310(19): 6037-1454 (http://education.Five Cool/faq/OUA658) Performed By: #### 1 484, 1920 #### [facility] [address], [address] [place] [address] Software Systems Analyst: Lj Sanchez MD Cholesterol.total/Chol esterol in HDL [Mass ratio] 5.1 {ratio} High <5.0 [facility] Comment on above: Performed By: #### 1 7651, 5290 #### [facility] [address], [address] [place], [place] [id number] Software Systems Analyst: Lj Sanchez MD NON HDL CHOLESTEROL 248 mg/dL (calc) High <130 [facility] Comment on above: Result Comment: Non- HDL level > or = 220 is very high and may indicate genetic familial hypercholesterolemia (FH). Clinical assessment and measurement of blood lipid levels should be considered for all first-degree relatives of patients with an FH diagnosis. For patients with diabetes plus 1 major ASCVD risk factor, treating to a non-HDL-C goal of <100 mg/dL (LDL-C of <70 mg/dL) is considered a therapeutic option. Performed By: #### 1 0231, 7600 #### [facility] [address] [place] [address], [address] Software Systems Analyst: Lj Sanchez MD Triglyceride [Mass/Vol] 192 mg/dL High <150 [facility] Comment on above: Performed By: #### 1 0231, 7600 #### [facility] [address], [address] [place], [place] [id number] Software Systems Analyst: Lj Sanchez MD Laboratory - Chemistry and C hemistry - challengeon 01-20-2022 Albumin [Mass/Vol] 4.1 g/dL Normal 3.6 - 5.1 g/dL [facility], [facility].; [employer], [facility]. Albumin/Globulin [Mass ratio] 1.5 {ratio} Normal 1.0 - 2.5 [facility], [facility].; [employer] ALP [Catalytic activity/Vol] 110 U/L Normal 37 - 153 U/L [facility], [facility].; [employer] [facility] ALT [Catalytic activity/Vol] 27 U/L Normal 6 - 29 U/L [facility], [facility].; [employer] AST [Catalytic activity/Vol] 21 U/L Normal 10 - 35 U/L [facility], [facility].; [employer] Bilirubin [Mass/Vol] 0.3 mg/dL Normal 0.2 - 1 .2 mg/dL [facility], [facility].; [employer] Calcium [Mass/Vol] 9.5 mg/dL Normal 8.6 - 10. 4 mg/dL [facility] [employer] [facility], [facility].; [employer] Chloride [Moles/Vol] 107 mmol/L Normal 98 - 11 0 mmol/L [facility], [facility].; [employer] Cholesterol [Mass/Vol] 309 mg/dL Abnormal [facility].; [facility], [facility]. Cholesterol in HDL [Mass/Vol] 61 mg/dL Normal [facility].; [facility], [facility]. Cholesterol in LDL [Mass/Vol] 211 mg/dL Abnormal [facility].; [employer] [facility], [facility]. CO2 [Moles/Vol] 26 mmol/L Normal 20 - 32 mmol/L [facility].; [facility], [facility] Creatinine [Mass/Vol] 0.74 mg/dL Normal 0.50 - 1.03 mg/dL [facility].; [facility], [facility]. GFR/1.73 sq M.predicted among non-blacks MDRD (S/P/Bld) [Vol rate/Area] 98 mL/min/{1.73_m2} Normal [facility].; [facility], [facility]. Glucose [Mass/Vol] 89 mg/dL Normal 65 - 99 mg/dL [facility], [facility].; [facility], [facility]. Potassium [Moles/Vol] 4.3 mmol/L Normal 3.5 - 5.3 mmol/L [facility].; [employer] [facility], [facility]. Protein [Mass/Vol] 6.8 g/dL Normal 6.1 - 8.1 g/dL [facility].; [employer] [facility], [facility]. Sodium [Moles/Vol] 141 mmol/L Normal 135 - 146 mmol/L [facility], [facility].; [employer] [facility], [facility]. Triglyceride [Mass/Vol] 192 mg/dL Abnormal [facility].; [employer] [facility], [facility]. Urea nitrogen [Mass/Vol] 18 mg/dL Normal 7 - 25 mg/dL [facility].; [employer] [facility], [facility] No Panel Informationon 01-20 BUN/CREATININE RATIO NOT APPLICABLE Normal 6 - 22 [facility].; [employer] [facility], [facility]. CHOL/HDLC RATIO 5.1 Abnormal [facility], [facility].; [employer] [facility], [facility]. GLOBULIN 2.7 Normal 1.9 - 3.7 [facility], [facility].; [employer] [facility], [facility] NON HDL CHOLESTEROL 248 Abnormal [facility]. CBC (INCLUDES DIFF/PLT)on Basophils (Bld) [#/Vol] 0.077 10*3/uL Normal 0-200 [facility] Comment on above: Performed By: #### 6 399 #### [facility] of [place] [address] Software Systems Analyst: Lj Sanchez MD Basophils/100 WBC (Bld) 1.4 % Normal [facility] Comment on above: Performed By: #### 6 399 #### [facility] of [place] [address] Software Systems Analyst: Lj Sanchez MD Eosinophils (Bld) [#/Vol] 0.138 10*3/uL Normal 15-500 [facility] Comment on above: Performed By: #### 6 399 #### [facility] [place] [address] Software Systems Analyst: Lj Sanchez MD Eosinophils/100 WBC (Bld) 2.5 % Normal [facility] Comment on above: Performed By: #### 6 399 #### [facility] of [place] [address] Software Systems Analyst: Lj Sanchez MD Erythrocyte distribution width (RBC) [Ratio] 12.6 % Normal 11.0-15.0 [facility] Comment on above: Performed By: #### 6 399 #### [facility] of [place] [address] Software Systems Analyst: Lj Sanchez MD Hematocrit (Bld) [Volume fraction] 42.5 % Normal 35.0-45.0 [facility] Comment on above: Performed By: #### 6 399 #### [facility] [place] [address] Software Systems Analyst: Lj Sanchez MD Hemoglobin (Bld) [Mass/Vol] 14.1 g/dL Normal 11.7-15.5 [facility] Comment on above: Performed By: #### 6 399 #### [facility] of [address], [address] [place] [address] Software Systems Analyst: Lj Sanchez MD Lymphocytes (Bld) [#/Vol] 1.876 10*3/uL Normal 850-3900 [facility] Comment on above: Performed By: #### 6 399 #### [facility] of [place] [address] Software Systems Analyst: Lj Sanchez MD Lymphocytes/100 WBC (Bld) 34.1 % Normal [facility] Comment on above: Performed By: #### 6 399 #### [facility] of [place] [address] Software Systems Analyst: Lj Sanchez MD MCH (RBC) [Entitic mass] 29.5 pg Normal 27.0-33.0 [facility] Comment on above: Performed By: #### 6 399 #### [facility] [place] [address] Software Systems Analyst: Lj Sanchez MD MCHC (RBC) [Mass/Vol] 33.2 g/dL Normal 32.0-36.[address] [facility] Comment on above: Performed By: #### 6 399 #### [facility] [place] [address] Software Systems Analyst: Lj Sanchez MD MCV (RBC) [Entitic vol] 88.9 fL Normal 80.0-100.0 [facility] Comment on above: Performed By: #### 6 399 #### [facility] of [place] [address] Software Systems Analyst: Lj Sanchez MD Monocytes (Bld) [#/Vol] 0.506 10*3/uL Normal 200-950 [facility] Comment on above: Performed By: #### 6 399 #### [facility] of [place] [address] Software Systems Analyst: Lj Sanchez MD Monocytes/100 WBC (Bld) 9.2 % Normal [facility] Comment on above: Performed By: #### 6 399 #### [facility] of [place] [address] Software Systems Analyst: Lj Sanchez MD Neutrophils (Bld) [#/Vol] 2.904 10*3/uL Normal 5102-7576 [facility] Comment on above: Performed By: #### 6 399 #### [facility] of [place] [address] Software Systems Analyst: Lj Sanchez MD Neutrophils/100 WBC (Bld) 52.8 % Normal [facility] Comment on above: Performed By: #### 6 399 #### [facility] of [place] [address] [employer] Systems Analyst: Lj Sanchez MD Platelet mean volume (Bld) [Entitic vol] 9.4 fL Normal 7.5-12.5 [facility] Comment on above: Performed By: #### 6 399 #### [facility] [place] [address] [employer] Analyst: Lj Sanchez MD Platelets (Bld) [#/Vol] 363 10*3/uL Normal 140-400 [facility] Comment on above: Performed By: #### 6 399 #### [facility] [place] [address] [employer] Analyst: Lj Sanchez MD RBC (Bld) [#/Vol] 4.78 10*6/uL Normal 3.80-5.10 [facility] Comment on above: Performed By: #### 6 399 #### [facility] [place] [address] [employer] Analyst: Lj Sanchez MD WBC (Bld) [#/Vol] 5.5 10*3/uL Normal 3.8-10.8 [facility] Comment on above: Performed By: #### 6 399 #### [facility] [place] [address] [employer] Analyst: Lj Sanchez MD TSHon 07-15-2022 TSH Qn 2.13 m[IU]/L Normal [facility] Comment on above: Result Comment: Refe rence Range > or = 20 Years 0.40-4.50 Ranges First trimester 0.26-2.66 Second trimester 0.55-2.73 Third trimester 0.43-2.91 Performed By: #### 6 399 #### [facility] [address] [facility], [address] [place] [address] [employer] Analyst: Lj Sanchez MD Laboratory - Chemistry and C hemistry - challengeon 01-02-2022 TSH Qn 2.13 m[IU]/L Normal [employer]. Laboratory - Hematology and Cell countson 01-02-2022 Basophils (Bld) [#/Vol] 0.077 10*3/uL Normal 0 - 200 {cells/uL} [employer] Basophils/100 WBC (Bld) 1.4 % Normal [employer] Eosinophils (Bld) [#/Vol] 0.138 10*3/uL Normal 15 - 500 {cells/uL} [employer]. Eosinophils/100 WBC (Bld) 2.5 % Normal [employer] Erythrocyte distribution width (RBC) [Ratio] 12.6 % Normal 11.0 - 15.0 % [employer] Hematocrit (Bld) [Volume fraction] 42.5 % Normal 35.0 - 45.0 % [employer] Hemoglobin (Bld) [Mass/Vol] 14.1 g/dL Normal 11.7 - 15.5 g/dL [employer] Lymphocytes (Bld) [#/Vol] 1.876 10*3/uL Normal 850 - 3900 {cells/uL} [employer] Lymphocytes/100 WBC (Bld) 34.1 % Normal [employer] MCH (RBC) [Entitic mass] 29.5 pg Normal 27.0 - 33.0 pg [facility].; [facility]. MCHC (RBC) [Mass/Vol] 33.2 g/dL Normal 32.0 - 36.0 g/dL [facility].; [employer] [facility]. MCV (RBC) [Entitic vol] 88.9 fL Normal 80.0 - 100.0 fL [facility].; [facility]. Monocytes (Bld) [#/Vol] 0.506 10*3/uL Normal 200 - 950 {cells/uL} [facility].; [facility]. Monocytes/100 WBC (Bld) 9.2 % Normal [facility].; [facility]. Neutrophils (Bld) [#/Vol] 2.904 10*3/uL Normal 1500 - 7800 {cells/uL} [facility].; [employer]. Neutrophils/100 WBC (Bld) 52.8 % Normal [facility].; [employer]. Platelet mean volume (Bld) [Entitic vol] 9.4 fL Normal 7.5 - 12.5 fL [facility].; [employer] [facility]. Platelets (Bld) [#/Vol] 363 10*3/uL Normal 140 - 400 [facility].; [employer]. RBC (Bld) [#/Vol] 4.78 10*6/uL Normal 3.80 - 5.10 {Million/u L} [facility].; [employer]. WBC (Bld) [#/Vol] 5.5 10*3/uL Normal 3.8 - 10.8 [facility].; [employer]. Absolute lymphocyte counton 12-27-2021 Lymphocytes Auto (Unsp spec) [#/Vol] 1.85 10*3/uL 0.83-4.51 [facility] Work Phone: Basophil percentageon 2021 Basophils/100 WBC (Bld) 0.5 % 0-1 [facility] Work Phone: Bilirubin [Mass/Vol] 0.40 mg/dL 0.20-1.00 [facility] Work Phone: Comment on above: For patients on eltr ombopag therapy, use of Dimension Mccarley TBIL is not recommended. Chloride [Moles/Vol] 109 mmol/L 98-107 [facility] Work Phone: Eosinophils/100 WBC (Bld) 0.9 % 0-5 [facility] Work Phone: Glucose [Mass/Vol] 101 mg/dL 74-106 [facility] Work Phone: Comment on above: Fasting Glucose resu lt from 100 to 125 mg/dL suggests IMPAIRED HOMEOSTASIS per A.D.A. criteria. Neutrophils (Bld) [#/Vol] 5.4 10*3/uL 2.0-7.7 [facility] Work Phone: Neutrophils/100 WBC (Bld) 67.7 % 47-70 [facility] Work Phone: Potassium [Moles/Vol] 3.8 mmol/L 3.5-5.1 [facility] Work Phone: Protein [Mass/Vol] 5.9 g/dL 6.4-8.2 [facility] Work Phone: Sodium [Moles/Vol] 140 mmol/L 136-145 [facility] Work Phone: WBC (Bld) [#/Vol] 8.0 10*3/uL 4.4-11.0 [facility] Work Phone: Blood erythrocytes count (nu mber/volume)on 12-27-2021 RBC (Bld) [#/Vol] 3.98 10*6/uL 4.2-5.4 [facility] Work Phone: Blood hemoglobin measurement (mass/volume)on 12-27-2021 Hemoglobin (Bld) [Mass/Vol] 11.6 g/dL 12.0-15.0 [facility] Work Phone: Blood lymphocytes/100 leukoc yteson 12-27-2021 Lymphocytes/100 WBC (Bld) 23.1 % 19-41 [facility] Work Phone: Blood monocytes/100 leukocyt eson 12-27-2021 Monocytes/100 WBC (Bld) 7.5 % 0-10 [facility] Work Phone: Blood platelet mean volumeon 12-27-2021 Platelet mean volume (Bld) [Entitic vol] 9.0 fL 6.2-12.0 [facility] Work Phone: Determination of erythrocyte mean corpuscular volume (MCV)on 12-27-2021 MCV (RBC) [Entitic vol] 88.2 fL 81-99 [facility] Work Phone: Hematocrit Auto (Bld) [Volum e fraction]on 12-27-2021 Hematocrit (Bld) [Volume fraction] 35.1 % 37-47 [facility] Work Phone: Laboratory - Chemistry and C hemistry - challengeon 12-27-2021 ALP [Catalytic activity/Vol] 129 U/L 45-117 [facility] Work Phone: ALT [Catalytic activity/Vol] 68 U/L 13-56 [facility] Work Phone: CO2 [Moles/Vol] 26.0 mmol/L 21.0-32.0 [facility] Work Phone: Globulin (S) [Mass/Vol] 3.1 g/dL 2.2-4.2 [facility] Work Phone: Urea nitrogen/Creatinine [Mass ratio] 11.3 mg/mg 10-20 [facility] Work Phone: Laboratory - Hematology and Cell countson 12-27-2021 Erythrocyte distribution width (RBC) [Entitic vol] 42.1 fL 35.1-43.9 [facility] Work Phone: Erythrocyte distribution width (RBC) [Ratio] 13.0 % 11.6-14.6 [facility] Work Phone: Immature granulocytes/100 WBC (Bld) 0.300 % 0.0-0.9 [facility] Work Phone: [phone] Comment on above: IG% - Immature Granu locytes (promyelocytes, myelocytes and metamyelocytes) > 1% indicates that a LEFT SHIFT is Present. MCH (RBC) [Entitic mass] 29.1 pg 27.0-32.0 [facility] Work Phone: [phone] Nucleated RBC/100 WBC (Bld) [Ratio] 0 % 0-5 [facility] Work Phone: [phone] MCHC Auto (RBC) [Mass/Vol]on 12-27-2021 MCHC (RBC) [Mass/Vol] 33.0 g/dL 32-36 [facility] Work Phone: No Panel Informationon 12-27 Troponin I High Sensitivity 3 pg/mL 3.0-54.0 [facility] Work Phone: [phone] Comment on above: Please Note: New Saadia t Units and Gender Specific Reference Ranges. For more information see Policy Stat Procedure Mccarley High Sensitivity Troponin (TNIH) and attachments. Estimated Creatinine Clearance Calc 68.82 ml/min [facility] Work Phone: [phone] Estimated GFR (MDRD) Amer 98 mL/min >60 [facility] Work Phone: [phone] Comment on above: GFR Calc Estimated GFR (MDRD) Non-Af Amer 81 mL/min >60 [facility] Work Phone: [phone] Comment on above: Non- GFR Calc Platelets bldon 12-27-2021 Platelets (Bld) [#/Vol] 238 10*3/uL 150-450 [facility] Work Phone: [phone] Serum or plasma albumin marnie urement (mass/volume)on 12-27-2021 Albumin [Mass/Vol] 2.8 g/dL 3.2-5.0 [facility] Work Phone: [phone] Serum or plasma albumin/glob ulin mass ratioon 12-27-2021 Albumin/Globulin [Mass ratio] 0.9 {ratio} 0.9-2.4 [facility] Work Phone: Serum or plasma calcium marnie urement (mass/volume)on 12-27-2021 Calcium [Mass/Vol] 8.8 mg/dL 8.5-10.1 [facility] Work Phone: Serum or plasma creatinine m easurement (mass/volume)on 12-27-2021 Creatinine [Mass/Vol] 0.80 mg/dL 0.55-1.02 [facility] Work Phone: Comment on above: The validity of the calculated GFR & GFRAA in patients over 70 years has not been determined. Clinical correlation is essential. Serum or plasma urea nitroge n measurement (mass/volume)on 12-27-2021 Urea nitrogen [Mass/Vol] 9 mg/dL 7-18 [facility] Work Phone: Thin prep Papanicolaou smear with manual screeningon 12-27-2021 Thin prep Papanicolaou smear with manual screening 26 U/L 15-37 [facility] Work Phone: Thin prep Papanicolaou smear with manual screening 5 5-15 [facility] Work Phone: [phone] Absolute lymphocyte counton 12-26-2021 Lymphocytes Auto (Unsp spec) [#/Vol] 1.77 10*3/uL 0.83-4.51 [facility] Work Phone: Basophil percentageon 2021 Basophils/100 WBC (Bld) 0.7 % 0-1 [facility] Work Phone: Bilirubin [Mass/Vol] 0.20 mg/dL 0.20-1.00 [facility] Work Phone: [phone] Comment on above: For patients on eltr ombopag therapy, use of Dimension Mccarley TBIL is not recommended. Chloride [Moles/Vol] 108 mmol/L 98-107 [facility] Work Phone: Eosinophils/100 WBC (Bld) 0.4 % 0-5 [facility] Work Phone: Glucose [Mass/Vol] 124 mg/dL 74-106 [facility] Work Phone: Comment on above: Fasting Glucose resu lt from 100 to 125 mg/dL suggests IMPAIRED HOMEOSTASIS per A.D.A. criteria. Neutrophils (Bld) [#/Vol] 7.4 10*3/uL 2.0-7.7 [facility] Work Phone: Neutrophils/100 WBC (Bld) 73.5 % 47-70 [facility] Work Phone: Potassium [Moles/Vol] 4.3 mmol/L 3.5-5.1 [facility] Work Phone: Protein [Mass/Vol] 7.3 g/dL 6.4-8.2 [facility] Work Phone: Sodium [Moles/Vol] 142 mmol/L 136-145 [facility] Work Phone: WBC (Bld) [#/Vol] 10.1 10*3/uL 4.4-11.0 [facility] Work Phone: Blood erythrocytes count (nu mber/volume)on 12-26-2021 RBC (Bld) [#/Vol] 4.67 10*6/uL 4.2-5.4 [facility] Work Phone: Blood hemoglobin measurement (mass/volume)on 12-26-2021 Hemoglobin (Bld) [Mass/Vol] 13.9 g/dL 12.0-15.0 [facility] Work Phone: Blood lymphocytes/100 leukoc yteson 12-26-2021 Lymphocytes/100 WBC (Bld) 17.6 % 19-41 [facility] Work Phone: Blood monocytes/100 leukocyt eson 12-26-2021 Monocytes/100 WBC (Bld) 7.3 % 0-10 [facility] Work Phone: Blood platelet mean volumeon 12-26-2021 Platelet mean volume (Bld) [Entitic vol] 9.4 fL 6.2-12.0 [facility] Work Phone: [phone] Determination of erythrocyte mean corpuscular volume (MCV)on 12-26-2021 MCV (RBC) [Entitic vol] 89.5 fL 81-99 [facility] Work Phone: [phone] Hematocrit Auto (Bld) [Volum e fraction]on 12-26-2021 Hematocrit (Bld) [Volume fraction] 41.8 % 37-47 [facility] Work Phone: [phone] Laboratory - Chemistry and C hemistry - challengeon 12-26-2021 ALP [Catalytic activity/Vol] 169 U/L 45-117 [facility] Work Phone: [phone] ALT [Catalytic activity/Vol] 112 U/L 13-56 [facility] Work Phone: [phone] CO2 [Moles/Vol] 26.0 mmol/L 21.0-32.0 [facility] Work Phone: [phone] Globulin (S) [Mass/Vol] 3.7 g/dL 2.2-4.2 [facility] Work Phone: [phone] Lipase [Catalytic activity/Vol] 116 U/L 73-393 [facility] Work Phone: [phone] Urea nitrogen/Creatinine [Mass ratio] 16.2 mg/mg 10-20 [facility] Work Phone: [phone] Laboratory - Hematology and Cell countson 12-26-2021 Erythrocyte distribution width (RBC) [Entitic vol] 42.3 fL 35.1-43.9 [facility] Work Phone: [phone] Erythrocyte distribution width (RBC) [Ratio] 13.0 % 11.6-14.6 [facility] Work Phone: [phone] Immature granulocytes/100 WBC (Bld) 0.500 % 0.0-0.9 [facility] Work Phone: [phone] Comment on above: IG% - Immature Granu locytes (promyelocytes, myelocytes and metamyelocytes) > 1% indicates that a LEFT SHIFT is Present. MCH (RBC) [Entitic mass] 29.8 pg 27.0-32.0 [facility] Work Phone: Nucleated RBC/100 WBC (Bld) [Ratio] 0 % 0-5 [facility] Work Phone: MCHC Auto (RBC) [Mass/Vol]on 12-26-2021 MCHC (RBC) [Mass/Vol] 33.3 g/dL 32-36 [facility] Work Phone: No Panel Informationon 12-26 Estimated Creatinine Clearance Calc 56.18 ml/min [facility] Work Phone: Estimated GFR (MDRD) Amer 76 mL/min >60 [facility] Work Phone: Comment on above: GFR Calc Estimated GFR (MDRD) Non-Af Amer 63 mL/min >60 [facility] Work Phone: Comment on above: Non- GFR Calc Platelets bldon 12-26-2021 Platelets (Bld) [#/Vol] 298 10*3/uL 150-450 [facility] Work Phone: Serum or plasma albumin marnie urement (mass/volume)on 12-26-2021 Albumin [Mass/Vol] 3.6 g/dL 3.2-5.0 [facility] Work Phone: Serum or plasma albumin/glob ulin mass ratioon 12-26-2021 Albumin/Globulin [Mass ratio] 1.0 {ratio} 0.9-2.4 [facility] Work Phone: Serum or plasma calcium marnie urement (mass/volume)on 12-26-2021 Calcium [Mass/Vol] 9.5 mg/dL 8.5-10.1 [facility] Work Phone: [phone] Serum or plasma creatinine m easurement (mass/volume)on 12-26-2021 Creatinine [Mass/Vol] 0.98 mg/dL 0.55-1.02 [facility] Work Phone: Comment on above: The validity of the calculated GFR & GFRAA in patients over 70 years has not been determined. Clinical correlation is essential. Serum or plasma urea nitroge n measurement (mass/volume)on 12-26-2021 Urea nitrogen [Mass/Vol] 16 mg/dL 7-18 [facility] Work Phone: Thin prep Papanicolaou smear with manual screeningon 12-26-2021 Thin prep Papanicolaou smear with manual screening 43 U/L 15-37 [facility] Work Phone: Thin prep Papanicolaou smear with manual screening 8 5-15 [facility] Work Phone: Laboratory - Chemistry and C hemistry - challengeon 07-30-2020 Albumin [Mass/Vol] 4.1 g/dL Normal 3.6 - 5.1 g/dL [facility]; [facility] Albumin/Globulin [Mass ratio] 2.0 {ratio} Normal 1.0 - 2.5 [facility].; [facility], [facility]. ALP [Catalytic activity/Vol] 86 U/L Normal 31 - 125 U/L [facility].; [facility], [facility]. ALT [Catalytic activity/Vol] 17 U/L Normal 6 - 29 U/L [facility].; [facility], [facility]. AST [Catalytic activity/Vol] 16 U/L Normal 10 - 35 U/L [facility].; [facility], [facility]. Bilirubin [Mass/Vol] 0.6 mg/dL Normal 0.2 - 1 .2 mg/dL [facility].; [facility], [facility]. Calcium [Mass/Vol] 9.3 mg/dL Normal 8.6 - 10. 2 mg/dL [facility].; [facility], [facility]. Chloride [Moles/Vol] 105 mmol/L Normal 98 - 11 0 mmol/L [facility].; [facility], [facility]. Cholesterol [Mass/Vol] 242 mg/dL Abnormal [facility].; [facility] Cholesterol in HDL [Mass/Vol] 49 mg/dL Abnormal [facility], [facility].; [facility], [facility]. Cholesterol in LDL [Mass/Vol] 164 mg/dL Abnormal [facility].; [facility] CO2 [Moles/Vol] 25 mmol/L Normal 20 - 32 mmol/L [facility].; [facility], [facility]. Creatinine [Mass/Vol] 0.68 mg/dL Normal 0.50 - 1.10 mg/dL [facility], [facility].; [facility], [facility]. GFR/1.73 sq M.predicted among blacks MDRD (S/P/Bld) [Vol rate/Area] 119 mL/min/{1.73_m2} Normal [facility].; [facility] Glucose [Mass/Vol] 92 mg/dL Normal 65 - 99 mg/dL [facility].; [facility], [facility]. Potassium [Moles/Vol] 4.0 mmol/L Normal 3.5 - 5.3 mmol/L [facility], [facility].; [facility] Protein [Mass/Vol] 6.2 g/dL Normal 6.1 - 8.1 g/dL [facility].; [employer] [facility], [facility]. Sodium [Moles/Vol] 137 mmol/L Normal 135 - 146 mmol/L [facility].; [facility], [facility]. Triglyceride [Mass/Vol] 148 mg/dL Normal [facility].; [employer] [facility], [facility]. TSH Qn 1.52 m[IU]/L Normal [facility]; [employer] [facility], [facility] Urea nitrogen [Mass/Vol] 10 mg/dL Normal 7 - 25 mg/dL [facility].; [employer], [facility]. Laboratory - Hematology and Cell countson 07-30-2020 Basophils (Bld) [#/Vol] 0.089 10*3/uL Normal 0 - 200 {cells/uL} [facility].; [employer] [facility], [facility]. Basophils/100 WBC (Bld) 1.9 % Normal [facility].; [employer] [facility], [facility]. Eosinophils (Bld) [#/Vol] 0.141 10*3/uL Normal 15 - 500 {cells/uL} [facility].; [employer] Eosinophils/100 WBC (Bld) 3.0 % Normal [facility]; [facility] Erythrocyte distribution width (RBC) [Ratio] 12.5 % Normal 11.0 - 15.0 % [facility].; [facility] Hematocrit (Bld) [Volume fraction] 43.6 % Normal 35.0 - 45.0 % [facility].; [facility] Hemoglobin (Bld) [Mass/Vol] 14.7 g/dL Normal 11.7 - 15.5 g/dL [facility].; [facility] Lymphocytes (Bld) [#/Vol] 1.438 10*3/uL Normal 850 - 3900 {cells/uL} [facility]; [facility] Lymphocytes/100 WBC (Bld) 30.6 % Normal [facility]; [facility] MCH (RBC) [Entitic mass] 29.9 pg Normal 27.0 - 33.0 pg [facility].; [facility], [facility]. MCHC (RBC) [Mass/Vol] 33.7 g/dL Normal 32.0 - 36.0 g/dL [facility].; [facility], [facility]. MCV (RBC) [Entitic vol] 88.8 fL Normal 80.0 - 100.0 fL [facility].; [facility] Monocytes (Bld) [#/Vol] 0.381 10*3/uL Normal 200 - 950 {cells/uL} [facility].; [facility], [facility]. Monocytes/100 WBC (Bld) 8.1 % Normal [facility].; [facility], [facility]. Neutrophils (Bld) [#/Vol] 2.651 10*3/uL Normal 1500 - 7800 {cells/uL} [facility].; [facility], [facility]. Neutrophils/100 WBC (Bld) 56.4 % Normal [facility].; [facility] Platelet mean volume (Bld) [Entitic vol] 10.1 fL Normal 7.5 - 12.5 fL [facility]; [employer] Platelets (Bld) [#/Vol] 293 10*3/uL Normal 140 - 400 [employer]; [employer] RBC (Bld) [#/Vol] 4.91 10*6/uL Normal 3.80 - 5.10 {Million/u L} [employer] WBC (Bld) [#/Vol] 4.7 10*3/uL Normal 3.8 - 10.8 [employer]; [employer] No Panel Informationon 07-30 BUN/CREATININE RATIO NOT APPLICABLE Normal 6 - 22 [employer] [facility]; [employer] CHOL/HDLC RATIO 4.9 Normal [employer] [facility]; [employer] eGFR NON-AFR. [place] 103 Normal [facility] [employer]; [employer] GLOBULIN 2.1 Normal 1.9 - 3.7 [employer] [facility]; [employer] NON HDL CHOLESTEROL 193 Abnormal [facility] [employer] [facility]; [employer] VITAMIN D,25-OH,TOTAL,IA 18 ng/mL Abnormal 30 - 100 ng/mL [employer] [facility]; [employer] Laboratory - Chemistry and C hemistry - challengeon 07-03-2020 Bilirubin Ql (U) small Abnormal [employer]; [employer] Ketones Ql (U) Negative Normal [employer] [facility]; [employer] pH (U) 5.5 [pH] Normal [employer] [facility]; [employer] Specific gravity (U) [Rel density] 1.030 Abnormal [employer]; [employer] Urobilinogen Qn (U) .2 mg/dL Normal [facility] [employer] [facility]; [employer]. Laboratory - Hematology and Cell countson 07-03-2020 Hemoglobin Ql (U) trace, hemolyzed Abnormal [facility]; [employer] Laboratory - Specimen inform ationon 07-03-2020 Appearance (U) Clear Normal [employer]. Color (U) Yellow Normal [employer]. Laboratory - Urinalysison Glucose Test strip (U) [Mass/Vol] Negative Normal [employer]. Leukocyte esterase Test strip Ql (U) Negative Normal [employer]. Nitrite Ql (U) Negative Normal [employer]. Protein Ql (U) trace Normal [employer]. No Panel Informationon 07-03 CULTURE, URINE, ROUTINE SEE NOTE Normal [employer]. CBC/PLATELET & AUTO DIFFEREN TIALon 03-27-2017 Basophils Auto #/vol (Bld) 0.1 10*3/uL Normal 0.0-0.1 [facility] Basophils/100 WBC Auto (Bld) 1 % Normal 0-1 [facility] CBC/PLATELET & AUTO DIFFERENTIAL 0.0 10*3/uL Normal - [facility] Comment on above: Result Comment: er Eosinophils 0.2 10*3/uL Normal 0.0-0.4 [facility] Eosinophils/100 leukocytes 2 % Normal 0-5 [facility] Erythrocyte distribution width Auto Ratio (RBC) 12.0 % Normal 11.7-14.4 [facility] Erythrocytes (RBC) 4.48 10*6/uL Normal 4.20-5.40 [facility] Hematocrit (HCT) 40.4 % Normal 37.0-47.0 [facility] Hemoglobin mass conc (Bld) 14.1 g/dL Normal 11.5-16.0 [facility] Lymphocytes 2.3 10*3/uL Normal 0.9-2.5 [facility] Lymphocytes/100 leukocytes 26 % Normal 13-44 [facility] MCH 31.5 pg High 27.0-31.0 [facility] MCHC mass conc (RBC) 34.9 g/dL Normal 31.5-36.0 [facility] MCV 90.2 fL Normal 82.0-101.0 [facility] Monocytes 0.7 10*3/uL Normal 0.1-1.0 [facility] Monocytes/100 leukocytes 8 % Normal 5-9 [facility] Neutrophils 5.6 10*3/uL Normal 2.1-6.5 [facility] Neutrophils/100 leukocytes 62 % Normal 39-75 [facility] Nucleated erythrocytes 0 % Normal - [facility] Platelet mean volume (PMV) 9.1 fL Normal 8.2-11.4 [facility] Platelets 274.0 10*3/uL Normal 130.0-400. 0 [facility] WBC (Leukocytes) 8.9 10*3/uL Normal 4.4-10.2 [facility] COMPREHENSIVE METABOLIC PANE [place] 03-27-2017 Alanine aminotransferase (ALT) 18 U/L Normal 14-59 [facility] Albumin 3.7 g/dL Normal 3.4-5.0 [facility] Albumin/Globulin Ratio 1.1 mg/dL Normal - [facility] Alkaline phosphatase (ALP) 104 U/L Normal 46-116 [facility] Anion gap 10.8 mmol/L Normal - [facility] Aspartate aminotransferase (AST) 17 U/L Normal 15-37 [facility] Bilirubin Ql (U) 0.24 mg/dL Normal 0.20-1.00 [facility] BUN/Creatinine Ratio 22.1 mg/mg Normal - [facility] Calcium 9.1 mg/dL Normal 8.5-10.1 [facility] Chloride 104 mmol/L Normal 98-107 [facility] CO2 28.2 mmol/L Normal 21.0-32.0 [facility] COMPREHENSIVE METABOLIC PANEL SEE NOTE Normal - [facility] Comment on above: Result Comment: er Creatinine 0.77 mg/dL Normal 0.55-1.02 [facility] eGFR (non-black) mL/min/{1.73_m2} Normal >60 [facility] Globulin 3.3 g/dL Normal - [facility] Glucose mass conc 102 mg/dL Normal 70-110 [facility] Osmolality 279 mosm/kg Normal - [facility] Potassium molar conc 4.0 mmol/L Normal 3.5-5.1 [facility] Protein 7.0 g/dL Normal 6.4-8.2 [facility] Sodium 139 mmol/L Normal 136-145 [facility] Urea nitrogen 17 mg/dL Normal 7-[address] [facility] [address] ABD PELVIS Won 03-27-[address] ABDOMEN AND PELVI S WITH CONTRAST, 03/27/2017:CLINICAL INDICATION: Palpable lump superior and to the right of theumbilicus. Diverticulitis like symptoms.COMPARISON: None.TECHNIQUE: IV contrast enhanced CT imaging of the abdomen and pelvis wasperformed using 74 ml of Isovue-370 intravenous contrast. Sagittal and coronalreconstructions are provided.Dose reduction techniques were achieved by using automated exposure controland/or adjustment of mA and/or kV according to patient size and/or use ofiterative reconstruction technique.FINDINGS:CT ABDOMEN: The lung bases and pleural spaces are clear.The liver, gallbladder, pancreas, adrenal glands, kidneys, stomach, and smallbowel appear within normal limits.There is a 1.7 cm cyst in the superior spleen on image 8. The spleen isotherwise unremarkable.CT PELVIS: The patient is status post appendectomy and hysterectomy. Theadnexa, urinary bladder, and pelvic small bowel loops are unremarkable. Thereis a normal volume of gas and stool in the colon.No inflammatory fat stranding, free fluid, or free air is seen in the abdomenor pelvis.No acute osseous abnormality or suspicious bony lesion is seen. There ischronic bilateral L5 and chronic left L3 spondylolysis withoutspondylolisthesis. 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 No acute findings in the abdomen or pelvis.2. Splenic cyst.3. Status post appendectomy and hysterectomy.4. 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 No spondylolisthesis.Dictated Physician: Brian ValeDictated On: 03/27/2017 04:50Interpreted By: Brian ValeTranscribed By: Charlotte NeelylineSigned By: Iris Valeigned On: 03/27/2017 05:16 Normal [facility] LIPASEon 03-27-2017 Lipase 118 U/L Normal 73-393 [facility] URINALYSIS W/ MICROSCOPIC if indicatedon 03-27-2017 Bilirubin Ql (U) Negative Normal Negative [facility] Blood Negative Normal Negative [facility] Blood product type Clean catch Normal - [facility] Glucose mass conc Normal Normal Normal [facility] Protein Negative Normal Negative [facility] URINALYSIS W/ MICROSCOPIC if indicated Not Indicated Normal - [facility] Comment on above: Result Comment: er Urine, appearance CLEAR Normal Clear [facility] Urine, color YELLOW Normal - [facility] Urine, ketones presence Negative Normal Negative [facility] Urine, nitrite presence Negative Normal Negative [facility] Urine, pH 6.0 [pH] Normal 5.0 - 9.0 [facility] Urine, specific gravity 1.015 Normal 1.010 - 1.030 [facility] Urine, urobilinogen Normal Normal Normal [facility] WBC (Leukocytes) Negative Normal Negative [facility] CNPNon 12-17-2016 CNPN Telephone (HLPROB) FRANK EDWARDS ( ) 1970 [facility] Time Provider Department12/17/16 VIRGINIA VALDEZ (RES) HLPROB During your visit today, we recorded the following information about you:Virginia Valdez MD 12/17/2016 3:15 PM SignedCalled patient to invite her to participate in the Endometrial Fluid Profilingas a Noninvasive Diagnostic Approach to Endometriosis study. The patientexpressed understanding and interest in enrolling. Will obtain formal consenton the day of surgery.??Bart Mahoneyergies As of Date: 12/17/2016(No Known Allergies)Date Reviewed: 12/16/2016Reviewed by: Carlie Mendiola PIPE STEM SAWYER - Fully AssessedReason for Visit: Research [[id number]]Prescriptions as of 12/17/2016 Sig: IBUPROFEN IB ORAL Take 3 tablets by mouth every* DEXTROAMPHETAMINE-AMPHETAM INE* Take 1 tablet by mouth once d*Problem List As Of Date 12/17/2016 Noted Resolved FEMALE GENITAL SYMPTOMS NOS [N94.9] INVALID FOR* DYSMENORRHEA [N94.6] INVALID FOR* URGENCY OF URINATION [R39.15] INVALID FOR* Gastric Ulcer [K25.9] INVALID FOR* Gastritis/Duodenitis [K29.70, K29.90] INVALID FOR* Hematemesis [K92.0] INVALID FOR*05/09/2009 Acute Gastritis without Mention of Hemorrhage [*INVALID FOR*05/09/2009 Stomach Ulcer [K25.9] INVALID FOR*05/09/2009 Abnormal mammogram, unspecified [R92.8] INVALID FOR* Fibroadenoma [D24.9] INVALID FOR* Other and unspecified noninfectious gastroenter*INVALID FOR* Status:Closed by VIRGINIA VALDEZ MD on 12/17/16 Normal [facility] Laboratory - Chemistry and C hemistry - challengeon 01-19-2016 Creatinine [Mass/Vol] 200 mg/dL Normal [facility] [employer] pH (Bld) 7 [pH] Normal [employer].; [employer]. Specific gravity (U) [Rel density] 1.025 Normal [employer]. Laboratory - Drug toxicology on 01-19-2016 Barbiturates Ql (S/P/Bld) Negative Normal [employer].; [employer], [employer]. Benzodiazepines Ql (U) Negative Normal [facility] [employer].; [employer]. Cocaine Ql (U) Negative Normal [employer].; [employer]. Methadone [Mass/Vol] Negative Normal [facility] [employer].; [employer]. Opiates Ql (U) Negative Normal [employer]. Laboratory - Urinalysison Nitrite Ql (U) 0 mg/dl Normal [employer].; [employer]. No Panel Informationon 01-18 AMPHETAMINE Positive Normal [employer]. BLEACH Negative Normal [employer].; [employer]. MARIJUANA Negative Normal [facility].; [employer]. MDMA Negative Normal [employer].; [employer]. METHAMPHETAMINE Negative Normal [facility] [employer] [facility] [employer] OXYCODONE Negative Normal [facility].; [employer]. Laboratory - Chemistry and C hemistry - challengeon 08-01-2015 TSH Qn 1.29 m[IU]/L Normal 0.40 - 4.50 {mIU/L} [facility].; [employer]. Laboratory - Hematology and Cell countson 08-01-2015 Basophils (Bld) [#/Vol] 20 {Cells}/uL Normal 0 - 200 {Cells}/uL [facility] [employer] [facility].; [employer]. Basophils/100 WBC (Bld) 0 % Normal 0 - 1 % [employer].; [employer]. Eosinophils (Bld) [#/Vol] 140 {Cells}/uL Normal 15 - 500 {Cells}/uL [employer].; [employer]. Eosinophils/100 WBC (Bld) 3 % Normal 0 - 4 % [employer].; [employer]. Erythrocyte distribution width (RBC) [Ratio] 12.8 % Normal 11.0 - 15.0 % [employer].; [employer], [employer]. Hematocrit (Bld) [Volume fraction] 41.7 % Normal 35.0 - 45.0 % [employer].; [employer]. Hemoglobin (Bld) [Mass/Vol] 13.7 g/dL Normal 11.7 - 15.5 g/dL [employer] [facility].; [employer]. Lymphocytes (Bld) [#/Vol] 1330 {Cells}/uL Normal 850 - 3900 {Cells}/uL [employer].; [employer], [employer]. Lymphocytes/100 WBC (Bld) 30 % Normal 12 - 47 % [employer].; [employer]. MCH (RBC) [Entitic mass] 29.8 pg Normal 27.0 - 33.0 PG [facility].; [employer]. MCHC (RBC) [Mass/Vol] 32.8 g/dL Normal 32.0 - 36.0 g/dL [facility].; [employer]. MCV (RBC) [Entitic vol] 90.6 fL Normal 80.0 - 100.0 fL [facility].; [employer], [employer]. Monocytes (Bld) [#/Vol] 340 {Cells}/uL Normal 200 - 950 {Cells}/uL [facility].; [employer]. Monocytes/100 WBC (Bld) 8 % Normal 4 - 12 % [facility] [employer].; [employer]. Neutrophils (Bld) [#/Vol] 2620 {Cells}/uL Normal 1500 - 7800 {Cells}/uL [facility].; [employer]. Neutrophils/100 WBC (Bld) 59 % Normal 40 - 75 % [facility] [employer].; [employer]. Platelet mean volume (Bld) [Entitic vol] 8.8 fL Normal 7.5 - 11.5 fL [facility].; [employer]. Platelets (Bld) [#/Vol] 256 10*3/uL Normal 140 - 400 10*3/uL [facility].; [employer]. RBC (Bld) [#/Vol] 4.60 10*6/uL Normal 3.80 - 5.10 10*6/uL [facility] [employer].; [employer]. WBC (Bld) [#/Vol] 4.4 10*3/uL Normal 3.8 - 10.8 10*3/uL [employer].; [employer], [employer]. Laboratory - Chemistry and C hemistry - challengeon 07-26-2015 Albumin [Mass/Vol] 4.3 g/dL Normal 3.6 - 5.1 g/dL [facility].; [employer], [employer]. Albumin/Globulin [Mass ratio] 2.0 {ratio} Normal 1.0 - 2.5 [employer].; [employer]. ALP [Catalytic activity/Vol] 66 U/L Normal 33 - 115 U/L [facility].; [facility]. ALT [Catalytic activity/Vol] 12 U/L Normal 6 - 29 U/L [facility].; [facility], [facility]. AST [Catalytic activity/Vol] 15 U/L Normal 10 - 30 U/L [facility], [facility].; [employer] [facility], [facility]. Bilirubin [Mass/Vol] 0.4 mg/dL Normal 0.2 - 1 .2 mg/dL [facility].; [employer] [facility], [facility]. Calcium [Mass/Vol] 9.5 mg/dL Normal 8.6 - 10. 2 mg/dL [facility].; [employer] [facility]. Chloride [Moles/Vol] 106 mmol/L Normal 98 - 11 0 mmol/L [facility].; [employer] [facility], [facility]. Cholesterol [Mass/Vol] 194 mg/dL Normal 125 - 200 mg/dL [facility].; [employer] [facility]. Cholesterol in HDL [Mass/Vol] 75 mg/dL Normal [facility].; [employer] [facility]. Cholesterol in LDL [Mass/Vol] 111 mg/dL Normal [facility].; [employer] [facility]. Cholesterol non HDL [Mass/Vol] 119 mg/dL Normal [facility].; [employer] [facility]. Cholesterol.total/Chol esterol in HDL [Mass ratio] 2.6 {ratio} Normal [facility].; [facility]. CO2 [Moles/Vol] 25 mmol/L Normal 19 - 30 mmol/L [facility].; [employer] [facility]. Creatinine [Mass/Vol] 0.89 mg/dL Normal 0.50 - 1.10 mg/dL [facility].; [facility], [facility]. GFR/1.73 sq M.predicted among blacks MDRD (S/P/Bld) [Vol rate/Area] 91 {ML/MIN/1.73M2} Normal [facility], [facility].; [employer] [facility], [facility]. GFR/1.73 sq M.predicted MDRD (S/P/Bld) [Vol rate/Area] 79 {ML/MIN/1.73M2} Normal [facility].; [facility]. Globulin (S) [Mass/Vol] 2.2 g/dL Normal 1.9 - 3.7 g/dL [facility].; [facility], [facility]. Glucose [Mass/Vol] 88 mg/dL Normal 65 - 99 mg/dL [facility].; [facility] Potassium [Moles/Vol] 4.3 mmol/L Normal 3.5 - 5.3 mmol/L [facility].; [facility] Protein [Mass/Vol] 6.5 g/dL Normal 6.1 - 8.1 g/dL [facility].; [facility], [facility]. Sodium [Moles/Vol] 138 mmol/L Normal 135 - 146 mmol/L [facility], [facility].; [facility] Triglyceride [Mass/Vol] 40 mg/dL Normal [facility].; [facility]. Urea nitrogen [Mass/Vol] 17 mg/dL Normal 7 - 25 mg/dL [facility].; [facility] Urea nitrogen/Creatinine [Mass ratio] 19.3 mg/mg Normal 6 - 22 [facility].; [facility] Laboratory - Chemistry and C hemistry - challengeon 12-15-2013 Albumin [Mass/Vol] 4.4 g/dL Normal 3.4 - 4.8 g/dL [facility].; [facility], [facility]. Albumin [Mass/Vol] 1.8 g/dL Abnormal 0.9 - 1.6 [facility].; [facility]. ALP [Catalytic activity/Vol] 53 U/L Normal 38 - 126 U/L [facility].; [facility], [facility]. ALT [Catalytic activity/Vol] 16 U/L Normal 8 - 35 U/L [facility].; [facility], [facility]. ALT No additional P-5'-P [Catalytic activity/Vol] 16 U/L Normal 8 - 35 U/L [facility].; [employer]. AST [Catalytic activity/Vol] 17 U/L Normal 13 - 39 U/L [facility], [facility].; [facility], [facility]. Bilirubin [Mass/Vol] 0.8 mg/dL Normal 0.0 - 1 .5 mg/dL [facility].; [facility], [facility]. Calcium [Mass/Vol] 9.5 mg/dL Normal 8.6 - 10. 2 mg/dL [facility].; [facility] Chloride [Moles/Vol] 103 mmol/L Normal 98 - 10 7 mmol/L [facility].; [facility] CO2 [Moles/Vol] 29.0 mmol/L Normal 13.0 - 29.0 mmol/L [facility].; [facility] Comprehensive metabolic 2000 panel CMP with eGFR Normal [facility]; [facility] Creatinine [Mass/Vol] 0.8 mg/dL Normal 0.6 - 1.2 mg/dL [facility], [facility].; [facility], [facility]. GFR/1.73 sq M.predicted among blacks MDRD (S/P/Bld) [Vol rate/Area] mL/min/{1.73_m2} Normal 60 - 999 {ML/MINUTE } [facility], [facility].; [facility], [facility]. GFR/1.73 sq M.predicted MDRD (S/P/Bld) [Vol rate/Area] mL/min/{1.73_m2} Normal 60 - 999 {ML/MINUTE } [facility], [facility].; [facility], [facility]. Globulin (S) [Mass/Vol] 2.4 g/dL Normal 1.5 - 3.8 g/dL [facility], [facility].; [facility], [facility]. Glucose [Mass/Vol] 117 mg/dL Abnormal 74 - 106 mg/dL [facility], [facility].; [facility], [facility]. Potassium [Moles/Vol] 3.8 mmol/L Normal 3.5 - 5.1 mmol/L [facility], [facility].; [facility] Protein [Mass/Vol] 6.8 g/dL Normal 6.4 - 8.3 g/dL [facility].; [employer] [facility]. Sodium [Moles/Vol] 137 mmol/L Normal 136 - 145 mmol/L [facility].; [employer] [facility]. Urea nitrogen [Mass/Vol] 13 mg/dL Normal 6 - 20 mg/dL [facility].; [employer] Urea nitrogen/Creatinine [Mass ratio] 16 {ratio} Normal 0 - 30 {ratio} [facility].; [employer] [facility] Laboratory - Hematology and Cell countson 12-15-2013 Basophils (Bld) [#/Vol] 0.00 {3/UL} Normal 0.00 - 0.10 {3/UL} [facility].; [employer] [facility] Basophils/100 WBC (Bld) 0.7 % Normal 0.0 - 2.0 % [facility].; [employer]. CBC W Auto Differential panel (Bld) CBC Normal [facility].; [employer] [facility] Eosinophils (Bld) [#/Vol] 0.00 {3/UL} Normal 0.00 - 0.50 {3/UL} [employer] [facility].; [employer]. Eosinophils/100 WBC (Bld) 0.6 % Normal 0.0 - 7.0 % [facility].; [employer] [facility]. Erythrocyte distribution width (RBC) [Ratio] 12.8 % Normal 12.0 - 15.6 % [facility].; [employer] [facility]. Hematocrit (Bld) [Volume fraction] 42.8 % Normal 34.0 - 46.0 % [facility] [employer] [facility].; [employer] [facility]. Hemoglobin (Bld) [Mass/Vol] 14.8 g/dL Normal 12.0 - 16.0 g/dL [employer] [facility].; [employer] [facility], [facility]. Lymphocytes (Bld) [#/Vol] 2.20 {3/UL} Normal 0.80 - 2.80 {3/UL} [employer] [facility].; [employer] Lymphocytes/100 WBC (Bld) 29.1 % Normal 20.0 - 45.0 % [facility], [employer].; [employer], [employer]. MCH (RBC) [Entitic mass] 31 pg Normal 27 - 33 pg [employer] MCHC (RBC) [Mass/Vol] 35 {X10_3} Normal 32 - 3 6 {X10_3} [employer] MCV (RBC) [Entitic vol] 89 fL Normal 80 - 99 fL [employer].; [employer] Monocytes (Bld) [#/Vol] 0.50 {3/UL} Normal 0.20 - 1.00 {3/UL} [employer] Monocytes/100 WBC (Bld) 7.3 % Normal 0.0 - 10.0 % [employer], [employer].; [employer] Morphology [place] (Bld) [Interp] N/A Normal [employer].; [employer] Neutrophils (Bld) [#/Vol] 4.60 {3/UL} Normal 1.50 - 7.10 {3/UL} [employer] Neutrophils/100 WBC (Bld) 62.3 % Normal 46.0 - 76.0 % [employer], [employer].; [employer] Platelet mean volume (Bld) [Entitic vol] 7.8 fL Normal 6.6 - 10.5 fL [employer] Platelets (Bld) [#/Vol] 267 {3/UL} Normal 150 - 450 {3/UL} [employer], [employer].; [employer] RBC (Bld) [#/Vol] 4.83 {6/UL} Normal 4.10 - 5.30 {6/UL} [employer] WBC (Bld) [#/Vol] 7.5 {3/UL} Normal 4.5 - 10.8 {3/UL} [employer], [employer]. No Panel Informationon 12-15 AGE 43 {years} Normal [facility].; [employer]. MANUAL DIFF N/A Normal [facility].; [employer]. Laboratory - Chemistry and C hemistry - challengeon 01-20-2011 Albumin [Mass/Vol] 4.5 g/dL Normal 3.6 - 5.1 g/dL [facility].; [employer], [employer]. Albumin/Globulin [Mass ratio] 1.7 {ratio} Normal 1.0 - 2.1 [facility].; [employer]. ALP [Catalytic activity/Vol] 93 U/L Normal 33 - 115 U/L [employer] [facility].; [employer], [employer]. ALT [Catalytic activity/Vol] 35 U/L Normal 6 - 40 U/L [employer] [facility].; [employer], [employer]. AST [Catalytic activity/Vol] 31 U/L Abnormal 10 - 30 U/L [employer].; [employer]. Bilirubin [Mass/Vol] 0.4 mg/dL Normal 0.2 - 1 .2 mg/dL [employer] [facility].; [employer]. Calcium [Mass/Vol] 9.6 mg/dL Normal 8.6 - 10. 2 mg/dL [employer] [facility].; [employer], [employer]. Chloride [Moles/Vol] 106 mmol/L Normal 98 - 11 0 mmol/L [employer] [facility].; [employer], [employer]. Cholesterol [Mass/Vol] 233 mg/dL Abnormal 125 - 200 mg/dL [employer].; [employer]. Cholesterol in HDL [Mass/Vol] 58 mg/dL Normal [employer] [facility].; [employer], [employer]. Cholesterol in LDL [Mass/Vol] 149 mg/dL Abnormal [employer].; [employer], [employer]. Cholesterol.total/Chol esterol in HDL [Mass ratio] 4.0 {ratio} Normal [employer].; [employer], [employer]. CO2 [Moles/Vol] 23 mmol/L Normal 21 - 33 mmol/L [employer].; [employer], [employer]. Creatinine [Mass/Vol] 0.75 mg/dL Normal 0.59 - 1.07 mg/dL [facility], [facility].; [employer] [facility], [facility]. GFR/1.73 sq M.predicted among blacks MDRD (S/P/Bld) [Vol rate/Area] 116 {ML/MIN/1.73M2} Normal [facility], [facility].; [employer] [facility] [employer] GFR/1.73 sq M.predicted MDRD (S/P/Bld) [Vol rate/Area] 100 {ML/MIN/1.73M2} Normal [employer] [employer] [facility], [facility].; [employer] Globulin (S) [Mass/Vol] 2.6 g/dL Normal 2.2 - 3.9 g/dL [facility], [facility].; [employer] Glucose [Mass/Vol] 88 mg/dL Normal 65 - 99 mg/dL [facility], [facility].; [employer]. Potassium [Moles/Vol] 4.9 mmol/L Normal 3.5 - 5.3 mmol/L [facility].; [employer]. Protein [Mass/Vol] 7.1 g/dL Normal 6.2 - 8.3 g/dL [employer] [facility], [facility].; [employer] Sodium [Moles/Vol] 140 mmol/L Normal 135 - 146 mmol/L [employer] [facility], [facility].; [employer] Triglyceride [Mass/Vol] 130 mg/dL Normal Malo [employer] [facility], [facility].; [employer], [employer]. TSH Qn 1.14 m[IU]/L Normal 0.40 - 4.50 {mIU/L} [employer] [facility], [facility].; [employer] Urea nitrogen [Mass/Vol] 10 mg/dL Normal 7 - 25 mg/dL [employer] [facility], [facility].; [employer] Urea nitrogen/Creatinine [Mass ratio] 13.2 mg/mg Normal 6 - 22 [facility] [employer] [facility].; [employer]. No Panel Information [facility] Work Phone: Vital Signs Date Time Vital Sign Value Performing Clinician Facility 12-08-2024 08:40-0400 Body height 160.[address] Juan Carolina MD Work Phone: [facility] 12-08-2024 08:40-0400 Diastolic blood pressure 67 mm[Hg] Dr. Juan Carolina MD Work Phone: [facility] 12-08-2024 08:40-0400 Heart rate 75 /min Dr. Juan Carolina MD Work Phone: [facility] 12-08-2024 08:40-0400 Respiratory rate 18 /min Dr. Juan Carolina MD Work Phone: [facility] 12-08-2024 08:40-0400 Systolic blood pressure 98 mm[Hg] Dr. Juan Carolina MD Work Phone: [facility] 12-08-2024 08:31-0400 Body weight 76.[address] Juan Carolina MD Work Phone: [facility] 10-25-2024 13:51-0400 Body height 158.9 cm Scarlet Ha MD Work Phone: [facility] 10-25-2024 13:51-0400 Body mass index (BMI) [Ratio] 29.23 kg/m2 Scarlet Ha MD Work Phone: [facility] 10-25-2024 13:51-0400 Body temperature 97.9 [degF] Scarlet Ha MD Work Phone: [facility] 10-25-2024 13:51-0400 Body weight 73.8 kg Scarlet Ha MD Work Phone: [facility] 10-25-2024 13:51-0400 Diastolic blood pressure 70 mm[Hg] Scarlet Ha MD Work Phone: [facility] 10-25-2024 13:51-0400 Heart rate 82 /min Scarlet Ha MD Work Phone: [facility] 10-25-2024 13:51-0400 SaO2% (BldA) [Mass fraction] 99 % Scarlet Ha MD Work Phone: [facility] 10-25-2024 13:51-0400 Systolic blood pressure 104 mm[Hg] Scarlet Ha MD Work Phone: [facility] 10-19-2024 07:04-0400 Body temperature 98 [degF] Dr. Juan Carolina MD Work Phone: [facility] 10-19-2024 07:04-0400 Diastolic blood pressure 83 mm[Hg] Dr. Juan Carolina MD Work Phone: [phone])[phone] [place] [address] 10-19-2024 07:04-0400 Heart rate 88 /min Dr. Juan Carolina MD Work Phone: 3(150)[phone] [place] [address] 10-19-2024 07:04-0400 Respiratory rate 16 /min Dr. Juan Carolina MD Work Phone: [facility] 10-19-2024 07:04-0400 SaO2% (BldA) [Mass fraction] 100 % Dr. Juan Carolina MD Work Phone: [facility] 10-19-2024 07:04-0400 Systolic blood pressure 108 mm[Hg] Dr. Juan Carolina MD Work Phone: [facility] 10-19-2024 06:25-0400 Body height 160.[address] Juan Carolina MD Work Phone: [facility] 10-19-2024 06:25-0400 Body mass index (BMI) [Ratio] 28.8 kg/m2 Dr. Juan Carolina MD Work Phone: [facility] 10-19-2024 06:25-0400 Body weight 73.[address] Juan Carolina MD Work Phone: 6([phone])[phone] [place] [address] 09-14-2024 10:36-0400 Body mass index (BMI) [Ratio] 28.8 kg/m2 Dr. Juan Carolina MD Work Phone: [facility] 09-14-2024 10:36-0400 Body weight 73.[address] Juan Carolina MD Work Phone: [facility] 09-14-2024 10:36-0400 Diastolic blood pressure 65 mm[Hg] Dr. Juan Carolina MD Work Phone: [phone])[phone] [place] [address] 09-14-2024 10:36-0400 Heart rate 97 /min Dr. Juan Carolina MD Work Phone: 9(537)[phone] [place] [address] 09-14-2024 10:36-0400 Respiratory rate 16 /min Dr. Juan Carolina MD Work Phone: 9(712)[phone] [place] [address] 09-14-2024 10:36-0400 SaO2% (BldA) [Mass fraction] 98 % Dr. Juan Carolina MD Work Phone: [phone] [place] [address] 09-14-2024 10:36-0400 Systolic blood pressure 93 mm[Hg] Dr. Juan Carolina MD Work Phone: [facility] 07-21-2024 09:05-0500 Body height 158.9 cm Renetta Littleton CUSTOMER SERVICE ADVISOR.AGRICULTURAL LENDER Work Phone: [facility] 07-21-2024 09:05-0500 Body mass index (BMI) [Ratio] 29.71 kg/m2 Renetta Valencia CUSTOMER SERVICE ADVISOR.AGRICULTURAL LENDER Work Phone: [facility] 07-21-2024 09:05-0500 Body weight 75.03 kg Renetta Valencia CUSTOMER SERVICE ADVISOR.AGRICULTURAL LENDER Work Phone: [facility] 07-21-2024 09:05-0500 Diastolic blood pressure 60 mm[Hg] Renetta Littleton CUSTOMER SERVICE ADVISOR.AGRICULTURAL LENDER Work Phone: [facility] 07-21-2024 09:05-0500 Systolic blood pressure 110 mm[Hg] Renetta Valencia CUSTOMER SERVICE ADVISOR.AGRICULTURAL LENDER Work Phone: [facility] 11-10-2023 08:19-0400 Body mass index (BMI) [Ratio] 33.93 kg/m2 Juan Carolina MD Work Phone: [facility] 11-10-2023 08:19-0400 Body temperature 98.49 [degF] Juan Carolina MD Work Phone: [facility] 11-10-2023 08:19-0400 Body weight 84.82 kg Juan Carolina MD Work Phone: [facility] 11-10-2023 08:19-0400 Diastolic blood pressure 70 mm[Hg] Juan Carolina MD Work Phone: [facility] 11-10-2023 08:19-0400 Heart rate 80 /min Juan Carolina MD Work Phone: [facility] 11-10-2023 08:19-0400 Respiratory rate 16 /min Juan Carolina MD Work Phone: [facility] 11-10-2023 08:19-0400 Systolic blood pressure 112 mm[Hg] Juan Carolina MD Work Phone: [facility] 10-07-2023 15:50-0400 Body weight 85.73 kg Jamee Hernandez APRN.AGRICULTURAL LENDER Work Phone: [facility] 10-07-2023 15:50-0400 Diastolic blood pressure 64 mm[Hg] Jamee Hernandez APRN.AGRICULTURAL LENDER Work Phone: [facility] 10-07-2023 15:50-0400 Heart rate 78 /min Jamee Hernandez APRN.AGRICULTURAL LENDER Work Phone: [facility] 10-07-2023 15:50-0400 SaO2% (BldA) [Mass fraction] 98 % Jamee Hernandez APRN.AGRICULTURAL LENDER Work Phone: [facility] 10-07-2023 15:50-0400 Systolic blood pressure 110 mm[Hg] Jamee Hernandez APRN.AGRICULTURAL LENDER Work Phone: [facility] 09-29-2023 09:09-0400 Body temperature 98.1 [degF] Juan Carolina MD Work Phone: [facility] 09-29-2023 09:09-0400 Body weight 84.82 kg Juan Carolina MD Work Phone: [facility] 09-29-2023 09:09-0400 Diastolic blood pressure 64 mm[Hg] Juan Carolina MD Work Phone: [facility] 09-29-2023 09:09-0400 Heart rate 84 /min Juan Carolina MD Work Phone: [facility] 09-29-2023 09:09-0400 Respiratory rate 12 /min Juan Carolina MD Work Phone: [facility] 09-29-2023 09:09-0400 Systolic blood pressure 102 mm[Hg] Juan Carolina MD Work Phone: [facility] 09-03-2023 12:55-0400 Body height 158.1 cm Jamee Hernandez APRN.AGRICULTURAL LENDER Work Phone: [facility] 09-03-2023 12:55-0400 Body weight 80.74 kg Jamee Hernandez APRN.AGRICULTURAL LENDER Work Phone: [facility] 09-03-2023 12:55-0400 Diastolic blood pressure 72 mm[Hg] Jamee Hernandez APRN.AGRICULTURAL LENDER Work Phone: [facility] 09-03-2023 12:55-0400 Heart rate 82 /min Jamee Hernandez APRN.AGRICULTURAL LENDER Work Phone: [facility] 09-03-2023 12:55-0400 SaO2% (BldA) [Mass fraction] 97 % Jamee Hernandez APRN.AGRICULTURAL LENDER Work Phone: [facility] 09-03-2023 12:55-0400 Systolic blood pressure 106 mm[Hg] Jamee Hernandez APRN.AGRICULTURAL LENDER Work Phone: [facility] 08-28-2023 10:50-0500 Body temperature 98.01 [degF] Anthony Kan MD Work Phone: [facility] 08-04-2023 13:55-0500 Body height 160 cm Anthony Kan MD Work Phone: [facility] 08-04-2023 13:55-0500 Body temperature 98.49 [degF] Anthony Kan MD Work Phone: [facility] 08-04-2023 13:55-0500 Body weight 80.29 kg Anthony Kan MD Work Phone: [facility] 08-04-2023 13:55-0500 Diastolic blood pressure 64 mm[Hg] Anthony Kan MD Work Phone: [facility] 08-04-2023 13:55-0500 Heart rate 96 /min Anthony Kan MD Work Phone: [facility] 08-04-2023 13:55-0500 SaO2% (BldA) [Mass fraction] 98 % Anthony Kan MD Work Phone: [facility] 08-04-2023 13:55-0500 Systolic blood pressure 90 mm[Hg] Anthony Kan MD Work Phone: [facility] 06-07-2023 17:29-0500 Body height 160.02 cm [facility] 06-07-2023 17:29-0500 Body mass index (BMI) [Ratio] 31.7 kg/m2 [facility] 06-07-2023 17:29-0500 Body temperature 97.1 [degF] [facility] 06-07-2023 17:29-0500 Body weight 81.32 kg [facility] 06-07-2023 17:29-0500 Diastolic blood pressure 98 mm[Hg] [facility] 06-07-2023 17:29-0500 Heart rate 92 /min [facility] 06-07-2023 17:29-0500 Respiratory rate 17 /min [facility] 06-07-2023 17:29-0500 SaO2% (BldA) [Mass fraction] 98 % [facility] 06-07-2023 17:29-0500 Systolic blood pressure 136 mm[Hg] [facility] 04-17-2022 13:31-0400 Body height 157.48 cm [facility], [facility].; [facility]. 04-17-2022 13:31-0400 Body mass index (BMI) [Ratio] 34.75 kg/m2 [facility], [facility].; [facility]. 04-17-2022 13:31-0400 Body surface area Derived from formula 1.87 m2 [facility].; [facility]. 04-17-2022 13:31-0400 Body weight 86.18 kg [facility]ie [facility].; [facility]. 04-17-2022 13:31-0400 Diastolic blood pressure 78 mm[Hg] [facility].; [facility]. Comment on above: Patient Position: Sitting; Cuff Location : Left Arm; Cuff Size: Standard 04-17-2022 13:31-0400 Heart rate 101 /min [facility], [facility].; [facility]. Comment on above: Pattern: Regular 04-17-2022 13:31-0400 Systolic blood pressure 113 mm[Hg] [facility], [facility].; [facility]. Comment on above: Patient Position: Sitting; Cuff Location : Left Arm; Cuff Size: Standard 02-14-2022 13:57-0400 Body height 160.[address] Zacarias Lieberman Work Phone: [facility] Work Phone: 02-14-2022 13:57-0400 Body mass index (BMI) [Ratio] 32.8 kg/m2 Dr. Zacarias Lieberman Work Phone: [facility] Work Phone: 02-14-2022 13:57-0400 Body weight 83.[address] Zacarias Lieberman Work Phone: [facility] Work Phone: 02-14-2022 13:57-0400 Diastolic blood pressure 84 mm[Hg] Dr. Zacarias Lieberman Work Phone: [facility] Work Phone: 02-14-2022 13:57-0400 Heart rate 94 /min Dr. Zacarias Lieberman Work Phone: [facility] Work Phone: 02-14-2022 13:57-0400 SaO2% (BldA) [Mass fraction] 97 % Dr. Zacarias Lieberman Work Phone: [facility] Work Phone: 02-14-2022 13:57-0400 Systolic blood pressure 115 mm[Hg] Dr. Zacarias Lieberman Work Phone: [facility] Work Phone: 01-27-2022 14:51-0400 Body height 157.48 cm [facility], [facility].; [employer] [facility], [facility]. 01-27-2022 14:51-0400 Body mass index (BMI) [Ratio] 33.84 kg/m2 [facility], [facility].; [facility], [facility]. 01-27-2022 14:51-0400 Body surface area Derived from formula 1.85 m2 [facility], [facility].; [facility]. 01-27-2022 14:51-0400 Body weight 83.92 kg [facility].; [employer] [facility]. 01-27-2022 14:51-0400 Diastolic blood pressure 81 mm[Hg] [facility], [facility].; [employer] [facility]. Comment on above: Patient Position: Sitting; Cuff Location : Left Arm; Cuff Size: Large 01-27-2022 14:51-0400 Heart rate 82 /min [facility], [facility].; [employer]. Comment on above: Pattern: Regular 01-27-2022 14:51-0400 Systolic blood pressure 119 mm[Hg] Sally Chen [facility] [facility], [facility].; [facility], [facility]. Comment on above: Patient Position: Sitting; Cuff Location : Left Arm; Cuff Size: Large 01-02-2022 08:00-0400 Body height 157.48 cm Kaylin Page LPN [facility], [facility].; [facility]. 01-02-2022 08:00-0400 Body mass index (BMI) [Ratio] 32.92 kg/m2 Kaylin Page LPN [facility].; [facility]. 01-02-2022 08:00-0400 Body surface area Derived from formula 1.83 m2 Kaylin Page LPN [facility], [facility].; [facility]. 01-02-2022 08:00-0400 Body weight 81.65 kg Kaylin Page [employer] [facility], [facility].; [facility]. 01-02-2022 08:00-0400 Diastolic blood pressure 71 mm[Hg] Kaylin Page [employer] [facility], [facility].; [facility], [facility]. Comment on above: Patient Position: Sitting; Cuff Location : Left Arm; Cuff Size: Standard 01-02-2022 08:00-0400 Heart rate 76 /min Kaylin Page LPN [facility], [facility].; [employer] [facility], [facility]. Comment on above: Pattern: Regular 01-02-2022 08:00-0400 Systolic blood pressure 101 mm[Hg] Kaylin Page LPN [facility], [facility].; [facility], [facility]. Comment on above: Patient Position: Sitting; Cuff Location : Left Arm; Cuff Size: Standard 12-27-2021 08:30-0400 Body temperature 98.1 [degF] Dr. Zacarias Lieberman Work Phone: [facility] Work Phone: 12-27-2021 08:30-0400 Diastolic blood pressure 71 mm[Hg] Dr. Zacarias Lieberman Work Phone: [facility] Work Phone: 12-27-2021 08:30-0400 Heart rate 72 /min Dr. Zacarias Lieberman Work Phone: [facility] Work Phone: 12-27-2021 08:30-0400 Respiratory rate 18 /min Dr. Zacarias Lieberman Work Phone: [facility] Work Phone: 12-27-2021 08:30-0400 SaO2% (BldA) [Mass fraction] 95 % Dr. Zacarias Lieberman Work Phone: [facility] Work Phone: 12-27-2021 08:30-0400 Systolic blood pressure 102 mm[Hg] Dr. Zacarias Lieberman Work Phone: [facility] Work Phone: 12-26-2021 10:51-0400 Body weight 83.[address] Zacarias Lieberman Work Phone: [facility] Work Phone: 12-26-2021 06:05-0400 Body mass index (BMI) [Ratio] 32.5 kg/m2 Dr. Zacarias Lieberman Work Phone: [facility] Work Phone: 12-26-2021 04:39-0400 Body temperature 97.9 [degF] [facility] Work Phone: 12-26-2021 04:39-0400 Diastolic blood pressure 73 mm[Hg] [facility] Work Phone: 12-26-2021 04:39-0400 Heart rate 90 /min [facility] Work Phone: 12-26-2021 04:39-0400 Respiratory rate 16 /min [facility] Work Phone: 12-26-2021 04:39-0400 SaO2% (BldA) [Mass fraction] 96 % [facility] Work Phone: 12-26-2021 04:39-0400 Systolic blood pressure 119 mm[Hg] [facility] Work Phone: 12-26-2021 02:38-0400 Body height 160.02 cm [facility] Work Phone: 12-26-2021 02:38-0400 Body mass index (BMI) [Ratio] 32.6 kg/m2 [facility] Work Phone: 12-26-2021 02:38-0400 Body weight 83.6 kg [facility] Work Phone: 08-06-2020 09:33-0500 Body height 157.48 cm [facility] April [facility] [employer] [facility], [employer]. 08-06-2020 09:33-0500 Body mass index (BMI) [Ratio] 31.09 kg/m2 [facility] [place] [facility] [employer] [facility] 08-06-2020 09:33-0500 Body surface area Derived from formula 1.78 m2 [facility] April [facility] [employer] [facility] 08-06-2020 09:33-0500 Body weight 77.11 kg [facility] [place] [facility] [employer] [facility] 08-06-2020 09:33-0500 Diastolic blood pressure 75 mm[Hg] [facility] April [facility] [employer] [facility] Comment on above: Patient Position: Sitting; Cuff Location : Left Arm; Cuff Size: Large 08-06-2020 09:33-0500 Heart rate 93 /min [facility] April [employer] [facility].; [employer], [employer]. Comment on above: Pattern: Regular 08-06-2020 09:33-0500 Systolic blood pressure 111 mm[Hg] [facility] April [facility].; [employer] Comment on above: Patient Position: Sitting; Cuff Location : Left Arm; Cuff Size: Large 07-03-2020 09:25-0500 Body height 160.02 cm [facility] April [facility].; [facility] 07-03-2020 09:25-0500 Body mass index (BMI) [Ratio] 30.47 kg/m2 Sally Chen [facility], [facility].; [employer] [facility] 07-03-2020 09:25-0500 Body surface area Derived from formula 1.81 m2 Sally Chen [facility] [employer] [facility] 07-03-2020 09:25-0500 Body temperature 97.3 [degF] Sally hCen [facility], [facility].; [employer] Comment on above: Method: Tympanic 07-03-2020 09:25-0500 Body weight 78.02 kg Sally Chen [employer] [facility].; [employer] [facility] 07-03-2020 09:25-0500 Diastolic blood pressure 72 mm[Hg] Sally Chen [facility] [employer] Comment on above: Patient Position: Sitting; Cuff Location : Left Arm; Cuff Size: Large 07-03-2020 09:25-0500 Heart rate 104 /min Sally Chen [facility], [facility].; [employer] [facility] [employer] Comment on above: Pattern: Regular 07-03-2020 09:25-0500 Systolic blood pressure 125 mm[Hg] Sally Chen [facility] [employer] Comment on above: Patient Position: Sitting; Cuff Location : Left Arm; Cuff Size: Large 08-10-2019 10:53-0500 Body height 160.02 cm Sally Chen [facility], [facility].; [employer] [facility], [employer]. 08-10-2019 10:53-0500 Body mass index (BMI) [Ratio] 28.52 kg/m2 Kaye Stuckey [facility], [facility].; [employer] 08-10-2019 10:53-0500 Body surface area Derived from formula 1.76 m2 Sally Chen [facility], [facility].; [employer], [employer]. 08-10-2019 10:53-0500 Body weight 73.03 kg Sally Chen [employer]. 08-10-2019 10:53-0500 Diastolic blood pressure 78 mm[Hg] Sally Chen [employer]. Comment on above: Patient Position: Sitting; Cuff Location : Left Arm; Cuff Size: Large 08-10-2019 10:53-0500 Heart rate 109 /min Sally Chen [employer], [employer]. Comment on above: Pattern: Regular 08-10-2019 10:53-0500 Systolic blood pressure 120 mm[Hg] Sally Chen [employer]. Comment on above: Patient Position: Sitting; Cuff Location : Left Arm; Cuff Size: Large 10-18-2018 08:38-0400 Body height 160.02 cm Neilee L Vess [employer], [employer]. 10-18-2018 08:38-0400 Body mass index (BMI) [Ratio] 26.75 kg/m2 Neilee L Vess [employer], [employer]. 10-18-2018 08:38-0400 Body surface area Derived from formula 1.72 m2 Neilee L Vess [employer], [employer]. 10-18-2018 08:38-0400 Body weight 68.49 kg Neilee L Vess [employer], [employer]. 10-18-2018 08:38-0400 Diastolic blood pressure 76 mm[Hg] Neilee L Vess [employer]. Comment on above: Patient Position: Sitting; Cuff Location : Left Arm; Cuff Size: Standard 10-18-2018 08:38-0400 Heart rate 101 /min Neilee L Vess [employer]. Comment on above: Pattern: Regular 10-18-2018 08:38-0400 Systolic blood pressure 118 mm[Hg] Cadence Gonzalez [employer] [facility].; [employer] [facility] Comment on above: Patient Position: Sitting; Cuff Location : Left Arm; Cuff Size: Standard 04-20-2018 11:04-0400 Body height 160.02 cm Sally Chen [facility].; [employer] [facility] 04-20-2018 11:04-0400 Body mass index (BMI) [Ratio] 25.51 kg/m2 Sally Chen [facility] [employer] [facility] 04-20-2018 11:04-0400 Body surface area Derived from formula 1.68 m2 Kaye Stuckey [facility].; [employer] [facility] 04-20-2018 11:04-0400 Body weight 65.32 kg Sally Chen [facility].; [employer] [facility] 04-20-2018 11:04-0400 Diastolic blood pressure 85 mm[Hg] Sally Chen [facility].; [employer] Comment on above: Patient Position: Sitting; Cuff Location : Left Arm; Cuff Size: Large 04-20-2018 11:04-0400 Heart rate 85 /min Sally Chen [facility] [employer] Comment on above: Pattern: Regular 04-20-2018 11:04-0400 Systolic blood pressure 121 mm[Hg] Sally Chen [facility] [employer] Comment on above: Patient Position: Sitting; Cuff Location : Left Arm; Cuff Size: Large 04-07-2018 06:55-0400 Body height 160.02 cm Sally Chen [facility], [facility] [employer] 04-07-2018 06:55-0400 Body mass index (BMI) [Ratio] 25.51 kg/m2 Sally Chen [facility] [employer] 04-07-2018 06:55-0400 Body surface area Derived from formula 1.68 m2 Sally Chen [facility], Inc.; [employer] 04-07-2018 06:55-0400 Body temperature 98.2 [degF] Sally Chen [facility] [employer] Comment on above: Method: Tympanic 04-07-2018 06:55-0400 Body weight 65.32 kg Sally Chen [facility], [facility] [employer] 04-07-2018 06:55-0400 Diastolic blood pressure 71 mm[Hg] Sally Chen [facility] [employer] [facility], [facility].; [employer] Comment on above: Patient Position: Sitting; Cuff Location : Left Arm; Cuff Size: Large 04-07-2018 06:55-0400 Heart rate 77 /min Sally Chen [facility], [facility] [employer] Comment on above: Pattern: Regular 04-07-2018 06:55-0400 Inhaled oxygen concentration 20 % KayeAbiola Chen [facility], [facility] [employer]. Comment on above: Room air 04-07-2018 06:55-0400 Inhaled oxygen concentration 21 % Sally Chen [facility] [employer] [facility], [employer]. Comment on above: Room air 04-07-2018 06:55-0400 SaO2% (BldA) [Mass fraction] 97 % Kaye April [facility] [employer] 04-07-2018 06:55-0400 Systolic blood pressure 108 mm[Hg] Sally Chen [facility] [employer] [facility], [employer]. Comment on above: Patient Position: Sitting; Cuff Location : Left Arm; Cuff Size: Large 09-08-2017 09:08-0400 Body height 160.02 cm Kaye April [facility], [employer] 09-08-2017 09:08-0400 Body mass index (BMI) [Ratio] 24.45 kg/m2 Kaye April [facility] [employer] [facility], [facility].; [employer]. 09-08-2017 09:08-0400 Body surface area Derived from formula 1.65 m2 Sally Chen [employer] 09-08-2017 09:08-0400 Body weight 62.6 kg Sally Chen [employer] 09-08-2017 09:08-0400 Diastolic blood pressure 76 mm[Hg] Sally Chen [facility] [employer] Comment on above: Patient Position: Sitting; Cuff Location : Left Arm; Cuff Size: Large 09-08-2017 09:08-0400 Heart rate 92 /min [facility] [employer] Comment on above: Pattern: Regular 09-08-2017 09:08-0400 Systolic blood pressure 114 mm[Hg] Sally Chen [facility] [employer] Comment on above: Patient Position: Sitting; Cuff Location : Left Arm; Cuff Size: Large 07-06-2017 15:22-0500 Body height 160.02 cm Zacarias Lieberman MD Work Phone: [employer] 07-06-2017 15:22-0500 Body mass index (BMI) [Ratio] 24.45 kg/m2 Zacarias Lieberman MD Work Phone: [employer].; [employer] 07-06-2017 15:22-0500 Body surface area Derived from formula 1.65 m2 Zacarias Lieberman MD Work Phone: [employer] 07-06-2017 15:22-0500 Body weight 62.6 kg Zacarias Lieberman MD Work Phone: [employer].; [employer] 07-06-2017 15:22-0500 Diastolic blood pressure 65 mm[Hg] Zacarias Lieberman MD Work Phone: [employer]. Comment on above: Patient Position: Sitting; Cuff Location : Left Arm; Cuff Size: Standard 07-06-2017 15:22-0500 Heart rate 70 /min Zacarias Lieberman MD Work Phone: [employer] Comment on above: Pattern: Regular 07-06-2017 15:22-0500 Systolic blood pressure 93 mm[Hg] Zacarias Lieberman MD Work Phone: [employer]. Comment on above: Patient Position: Sitting; Cuff Location : Left Arm; Cuff Size: Standard 10-17-2016 14:05-0400 Body weight 62.6 kg Zacarias Lieberman MD Work Phone: [employer] 10-17-2016 14:05-0400 Diastolic blood pressure 67 mm[Hg] Zacarias Lieberman MD Work Phone: [employer].; [employer]. Comment on above: Patient Position: Sitting; Cuff Location : Left Arm; Cuff Size: Standard 10-17-2016 14:05-0400 Heart rate 81 /min Zacarias Lieberman MD Work Phone: [employer].; [employer]. Comment on above: Pattern: Regular 10-17-2016 14:05-0400 Systolic blood pressure 96 mm[Hg] Zacarias Lieberman MD Work Phone: [employer]. Comment on above: Patient Position: Sitting; Cuff Location : Left Arm; Cuff Size: Standard 07-25-2016 08:06-0500 Body height 160.02 cm Joan Lora RN [employer] 07-25-2016 08:06-0500 Body mass index (BMI) [Ratio] 24.45 kg/m2 Joan Lora RN [employer] 07-25-2016 08:06-0500 Body surface area Derived from formula 1.65 m2 Joan Lora RN [employer]. 07-25-2016 08:06-0500 Body temperature 99 [degF] Joan Lora RN [employer]. Comment on above: Method: Tympanic 07-25-2016 08:06-0500 Body weight 62.6 kg Joan Lora RN [employer] 07-25-2016 08:06-0500 Diastolic blood pressure 63 mm[Hg] Joan Lora RN [employer]. Comment on above: Patient Position: Sitting; Cuff Location : Right Arm; Cuff Size: Standard 07-25-2016 08:06-0500 Heart rate 81 /min Joan Lora RN [employer]. Comment on above: Pattern: Regular 07-25-2016 08:06-0500 Inhaled oxygen concentration 20 % Joan Lora RN [employer]. Comment on above: Room air 07-25-2016 08:06-0500 Inhaled oxygen concentration 21 % Joan Lora RN [employer]. Comment on above: Room air 07-25-2016 08:06-0500 SaO2% (BldA) [Mass fraction] 98 % Joan Lora RN [employer]. 07-25-2016 08:06-0500 Systolic blood pressure 97 mm[Hg] Joan Lora RN [employer]. Comment on above: Patient Position: Sitting; Cuff Location : Right Arm; Cuff Size: Standard 08-01-2015 08:31-0500 Body height 160.02 cm [facility] April [employer] [facility] [employer]. 08-01-2015 08:31-0500 Body mass index (BMI) [Ratio] 23.03 kg/m2 [facility] [employer]. 08-01-2015 08:31-0500 Body surface area Derived from formula 1.61 m2 Sally Chen [employer] [facility], Inc.; [employer] 08-01-2015 08:31-0500 Body weight 58.97 kg Sally Chen LPN [facility], Inc.; [employer] 08-01-2015 08:31-0500 Diastolic blood pressure 71 mm[Hg] Sally Chen LPN [facility], Inc[facility] [employer], [employer]. Comment on above: Patient Position: Sitting; Cuff Location : Left Arm; Cuff Size: Large 08-01-2015 08:31-0500 Heart rate 101 /min Sally Chen [employer] [facility], Inc.; [employer], [employer]. Comment on above: Pattern: Regular 08-01-2015 08:31-0500 Systolic blood pressure 109 mm[Hg] Sally Chen [facility] [employer] [facility], [facility] [employer] Comment on above: Patient Position: Sitting; Cuff Location : Left Arm; Cuff Size: Large 04-16-2015 14:04-0400 Body temperature 98.1 [degF] Pat Catalina Ino [facility] [employer] [facility], [facility] [employer] 04-16-2015 14:04-0400 Body weight 54.89 kg Patlana Mckinnon [employer] [facility], [facility].; [employer], [employer]. 04-16-2015 14:04-0400 Diastolic blood pressure 65 mm[Hg] Pat Catalina Ino BLOOD [employer] [facility], [employer], [employer]. Comment on above: Patient Position: Sitting; Cuff Location : Left Arm; Cuff Size: Standard 04-16-2015 14:04-0400 Heart rate 88 /min Pat Mckinnon LPN [employer] [facility], [facility] [employer]. Comment on above: Pattern: Regular 04-16-2015 14:04-0400 Inhaled oxygen concentration 20 % Pat Mckinnon LPN [employer] [facility], Inc[facility] [employer]. Comment on above: Room air 04-16-2015 14:04-0400 Inhaled oxygen concentration 21 % Pat Mckinnon LPN [employer] [facility] [employer]. Comment on above: Room air 04-16-2015 14:04-0400 SaO2% (BldA) [Mass fraction] 98 % Pat [facility]innon [facility] [employer] 04-16-2015 14:04-0400 Systolic blood pressure 103 mm[Hg] Pat [facility]innon [facility] [employer]. Comment on above: Patient Position: Sitting; Cuff Location : Left Arm; Cuff Size: Standard 12-29-2014 07:18-0400 Body height 160.02 cm [facility]ie [facility] [employer] [facility] Inc.; [employer] 12-29-2014 07:18-0400 Body mass index (BMI) [Ratio] 21.26 kg/m2 Gabbie Hill DaylinQueen [facility] Valley Medical CenterMot[facility] Labs Inc.; [employer] 12-29-2014 07:18-0400 Body surface area Derived from formula 1.56 m2 Gabbie [facility] [employer] [facility] Inc.; [employer]. 12-29-2014 07:18-0400 Body weight 54.43 kg Gabbie [facility] [employer] [facility] [employer]. 12-29-2014 07:18-0400 Diastolic blood pressure 63 mm[Hg] Gabbie Perealabach [facility] [employer] [facility] Inc[facility] [employer]. Comment on above: Patient Position: Sitting; Cuff Location : Left Arm; Cuff Size: Standard 12-29-2014 07:18-0400 Heart rate 71 /min Gabbie Perealabach [facility] [employer] [facility] [employer]. Comment on above: Pattern: Regular 12-29-2014 07:18-0400 Systolic blood pressure 98 mm[Hg] Gabbie Lieber[facility]ach [facility] [employer]. Comment on above: Patient Position: Sitting; Cuff Location : Left Arm; Cuff Size: Standard 08-25-2014 07:07-0500 Body height 160.02 cm Sally Chen [employer] [facility] Inc.; [employer]. 08-25-2014 07:07-0500 Body mass index (BMI) [Ratio] 21.43 kg/m2 Sally Chen [employer] [facility], Inc.; [employer] 08-25-2014 07:07-0500 Body surface area Derived from formula 1.56 m2 Sally Chen LPN [employer] 08-25-2014 07:07-0500 Body weight 54.89 kg Sally Chen [employer], [employer] 08-25-2014 07:07-0500 Diastolic blood pressure 59 mm[Hg] Sally Chen [employer], [employer]. Comment on above: Patient Position: Sitting; Cuff Location : Left Arm; Cuff Size: Large 08-25-2014 07:07-0500 Heart rate 82 /min Sally Chen [employer] [facility], Inc.; [employer]. Comment on above: Pattern: Regular 08-25-2014 07:07-0500 Systolic blood pressure 89 mm[Hg] Sally Chen LPN [employer]. Comment on above: Patient Position: Sitting; Cuff Location : Left Arm; Cuff Size: Large 12-15-2013 09:56-0400 Body height 160.02 cm Zacarias Lieberman MD Work Phone: [employer] 12-15-2013 09:56-0400 Body mass index (BMI) [Ratio] 20.9 kg/m2 Zacarias Lieberman MD Work Phone: [employer] 12-15-2013 09:56-0400 Body surface area Derived from formula 1.55 m2 Zacarias Lieberman MD Work Phone: [employer]. 12-15-2013 09:56-0400 Body temperature 98.8 [degF] Zacarias Lieberman MD Work Phone: [employer]. Comment on above: Method: Tympanic 12-15-2013 09:56-0400 Body weight 53.52 kg Zacarias Lieberman MD Work Phone: [employer] [facility] [employer]. 12-15-2013 09:56-0400 Diastolic blood pressure 71 mm[Hg] Zacarias Lieberman MD Work Phone: [facility] [employer]. Comment on above: Patient Position: Sitting; Cuff Location : Left Arm; Cuff Size: Standard 12-15-2013 09:56-0400 Heart rate 83 /min Zacarias Lieberman MD Work Phone: [employer]. Comment on above: Pattern: Regular 12-15-2013 09:56-0400 Systolic blood pressure 108 mm[Hg] Zacarias Lieberman MD Work Phone: [employer]. Comment on above: Patient Position: Sitting; Cuff Location : Left Arm; Cuff Size: Standard 04-27-2013 10:35-0500 Body height 160.02 cm Gabbie Mao [facility] [employer] [facility], Inc.; [employer] 04-27-2013 10:35-0500 Body mass index (BMI) [Ratio] 20.9 kg/m2 Gabbie Mao [facility] [employer] [facility] Inc.; [employer] 04-27-2013 10:35-0500 Body surface area Derived from formula 1.55 m2 Gabbie Mao [facility] [employer] [facility] [employer]. 04-27-2013 10:35-0500 Body weight 53.52 kg Gabbie Mao [facility] [employer]. 04-27-2013 10:35-0500 Diastolic blood pressure 66 mm[Hg] Gabbie Mao [facility] [employer]. Comment on above: Patient Position: Sitting; Cuff Location : Left Arm; Cuff Size: Standard 04-27-2013 10:35-0500 Heart rate 80 /min Gabbie Mao [employer] [facility], [facility].; [employer] [facility]. Comment on above: Pattern: Regular 04-27-2013 10:35-0500 Systolic blood pressure 99 mm[Hg] Gabbie Liz Mao [facility].; [facility]. Comment on above: Patient Position: Sitting; Cuff Location : Left Arm; Cuff Size: Standard 11-18-2012 14:29-0400 Body height 160.02 cm Malika Garcia LPN [facility], [facility].; [facility] Center[facility]. 11-18-2012 14:29-0400 Body mass index (BMI) [Ratio] 23.78 kg/m2 Malikamaranda Garcia [facility], [facility].; [facility]. 11-18-2012 14:29-0400 Body surface area Derived from formula 1.63 m2 Malika Garcia LPN [facility], [facility].; [employer] [facility]. 11-18-2012 14:29-0400 Body weight 60.9 kg Malika Garcia [facility]Mot[facility] Labs [facility].; [employer] [facility]. 11-18-2012 14:29-0400 Diastolic blood pressure 72 mm[Hg] Malikamaranda Garcia [employer] [facility].; [employer]. Comment on above: Patient Position: Sitting; Cuff Location : Left Arm; Cuff Size: Standard 11-18-2012 14:29-0400 Heart rate 92 /min Malika Garcia LPN [facility], [facility].; [employer]. Comment on above: Pattern: Regular 11-18-2012 14:29-0400 Systolic blood pressure 105 mm[Hg] Malika Garcia LPN [facility].; [employer]. Comment on above: Patient Position: Sitting; Cuff Location : Left Arm; Cuff Size: Standard 10-22-2012 08:52-0400 Body weight 63.05 kg Pat Mckinnon LPN [facility], [facility].; [employer]. 10-22-2012 08:52-0400 Diastolic blood pressure 72 mm[Hg] Pat Mckinnon LPN [facility] Center[facility] [employer]. Comment on above: Patient Position: Sitting; Cuff Location : Left Arm; Cuff Size: Standard 10-22-2012 08:52-0400 Heart rate 99 /min Pat Mckinnon LPN [employer]. Comment on above: Pattern: Regular 10-22-2012 08:52-0400 Systolic blood pressure 106 mm[Hg] Pat Mckinnon LPN [employer]. Comment on above: Patient Position: Sitting; Cuff Location : Left Arm; Cuff Size: Standard 05-12-2012 08:11-0500 Body height 160.02 cm Zacarias Lieberman MD Work Phone: [employer]. 05-12-2012 08:11-0500 Body mass index (BMI) [Ratio] 25.83 kg/m2 Zacarias Lieberman MD Work Phone: [employer]. 05-12-2012 08:11-0500 Body surface area Derived from formula 1.69 m2 Zacarias Lieberman MD Work Phone: [employer]. 05-12-2012 08:11-0500 Body temperature 97.2 [degF] Zacarias Lieberman MD Work Phone: [employer]. Comment on above: Method: Tympanic 05-12-2012 08:11-0500 Body weight 66.13 kg Zacarias Lieberman MD Work Phone: [employer]. 05-12-2012 08:11-0500 Diastolic blood pressure 66 mm[Hg] Zacarias Lieberman MD Work Phone: [employer]. Comment on above: Patient Position: Sitting; Cuff Location : Left Arm; Cuff Size: Standard 05-12-2012 08:11-0500 Heart rate 84 /min Zacarias Lieberman MD Work Phone: [employer]. Comment on above: Pattern: Regular 05-12-2012 08:11-0500 Systolic blood pressure 106 mm[Hg] Zacarias Lieberman MD Work Phone: [facility] [employer] [facility] [employer]. Comment on above: Patient Position: Sitting; Cuff Location : Left Arm; Cuff Size: Standard 02-04-2012 08:49-0400 Body height 160.02 cm Malika Garcia [facility] [employer] [facility], [facility].; [employer]. 02-04-2012 08:49-0400 Body mass index (BMI) [Ratio] 23.96 kg/m2 Malika Garcia [facility] [employer] [facility], Inc[facility] [employer]. 02-04-2012 08:49-0400 Body surface area Derived from formula 1.64 m2 Malika Garcia [facility] [employer] [facility], [employer]. 02-04-2012 08:49-0400 Body temperature 97.7 [degF] Malika Garcia [facility] [employer] [facility] [employer]. Comment on above: Method: Tympanic 02-04-2012 08:49-0400 Body weight 61.35 kg Malika [facility] [employer] [facility], Inc.; [employer]. 01-20-2011 09:58-0400 Body height 157.48 cm Pat Mckinnon [employer] [facility], [facility].; [employer]. 01-20-2011 09:58-0400 Body mass index (BMI) [Ratio] 25.06 kg/m2 Pat Mckinnon LPN [facility] [employer] [facility], Inc[facility] [employer]. 01-20-2011 09:58-0400 Body surface area Derived from formula 1.63 m2 Pat Mckinnon LPN [facility] [employer] [facility] [employer]. 01-20-2011 09:58-0400 Body weight 62.14 kg Pat Mckinnon LPN [facility] [employer] [facility] [employer]. 01-20-2011 09:58-0400 Diastolic blood pressure 68 mm[Hg] Pat Mckinnon LPN [employer] [facility] [employer]. Comment on above: Patient Position: Sitting; Cuff Location : Left Arm; Cuff Size: Standard 01-20-2011 09:58-0400 Heart rate 75 /min Pat E Ino BLOOD [facility], [facility].; [facility] Center[facility]. Comment on above: Pattern: Regular 01-20-2011 09:58-0400 Systolic blood pressure 99 mm[Hg] Pat Mckinnon [employer] [facility], [facility].; [employer] [facility]. Comment on above: Patient Position: Sitting; Cuff Location : Left Arm; Cuff Size: Standard 12-30-2010 14:27-0400 Body weight 62.14 kg Pat Arnold Ino BLOOD [facility], [facility].; [facility]. 12-30-2010 14:27-0400 Diastolic blood pressure 62 mm[Hg] Pat Arnold Ino BLOOD [facility], [facility].; [employer] [facility]. Comment on above: Patient Position: Sitting; Cuff Location : Left Arm; Cuff Size: Standard 12-30-2010 14:27-0400 Heart rate 77 /min Pat Arnold Ino BLOOD [facility], [employer] [facility]. Comment on above: Pattern: Regular 12-30-2010 14:27-0400 Systolic blood pressure 99 mm[Hg] Pat E Ino BLOOD [facility], [facility].; [employer] [facility]. Comment on above: Patient Position: Sitting; Cuff Location : Left Arm; Cuff Size: Standard Encounters Encounter Date Encounter Type Care Provider Facility Start: 01-12-2025 ambulatory Juan Staples ty:[facility] Start: 12-08-2024 End: 12-08-[address] Nasrin Sanderson MD -[facility] Work Phone: Start: 12-08-2024 End: 12-08-[address] Juan Carolina MD Work Phone: [facility] Work Phone: Start: 11-23-2024 ambulatory Juan Staples ty:[facility] Start: 11-04-2024 End: 01-04-2025 Follow-up encounter Scarlet Ha MD Work Phone: Neurology Start: 11-04-2024 ambulatory SCARLET Morse ity:[facility] Start: 11-04-2024 End: 11-04-2024 Subsequent hospital visit by physician Mri [facility] (I-Stat/1.5t) Work Phone: Radiology Comment on above: Abnormal head moveme nts [R25.0] Start: 10-25-2024 End: 10-25-2024 Patient encounter procedure Scarlet Ha MD Work Phone: Neurology Comment on above: Abnormal head moveme nts Start: 10-25-2024 End: 10-25-2024 ambulatory Scarlet Ha MD Work Phone: Neurology Comment on above: Frank Ventura Start: 10-20-2024 End: 10-20-2024 Telemedicine consultation with patient Juan Carolina MD Work Phone: [facility] [place] Start: 10-20-2024 End: 10-20-2024 ambulatory Juan Carolina MD Work Phone: [facility] [place] Comment on above: History of PSVT (par oxysmal supraventricular tachycardia) (Primary Dx); Abnormal laboratory test result; Abnormal head movements; Chronic low blood pressure; Ischemic colitis (HCC) Start: 10-19-2024 End: 10-19-2024 Patient encounter procedure Fely Comer MD Work Phone: Ophthalmology Comment on above: Glaucoma suspect of both eyes (Primary Dx); Optic nerve cupping of both eyes Start: 10-19-2024 End: 10-19-2024 ambulatory JUAN CAROLINA Facility:[facility] Start: 10-19-2024 End: 10-19-2024 Emergency department patient visit Dr. Juan Carolina MD Work Phone: -Emergency Department Work Phone: Start: 09-14-2024 End: 09-14-2024 Patient encounter procedure Malika AGUILERA -[facility] Work Phone: Start: 09-14-2024 End: 09-14-2024 ambulatory Juan Carolina Facility:[facility] Start: 07-21-2024 End: 07-21-2024 ambulatory JUAN CAROLINA Facility:[facility] Start: 07-21-2024 End: 07-21-2024 Patient encounter procedure Renetta Birmingham APRN.CNP Work Phone: OB/Gynecology Comment on above: Encounter for gyneco logical examination (general) (routine) without abnormal findings (Primary Dx); Encounter for screening mammogram for breast cancer; Vaginal odor; Menopausal symptoms Start: 07-21-2024 End: 07-21-2024 Patient encounter status Renetta Birmingham APRN.[employer]URAL [employer]ER Work Phone: [facility] Start: 05-29-2024 End: 05-29-2024 Emergency department patient visit Tunde Bedolla Facility:[facility] Start: 05-05-2024 End: 05-05-2024 ambulatory Juan Carolina [facility] [facility] Start: 05-05-2024 End: 05-05-2024 ambulatory Juan Carolina Facility:[facility] Start: 04-19-2024 ambulatory Karissa Danielle Koram Facility :[facility] Start: 04-18-2024 ambulatory Karissa Danielle Koram Facility :[facility] Start: 04-18-2024 End: 04-20-2024 Evaluation and management of inpatient Karissa Danielle Koram Facility:[facility] Start: 11-10-2023 End: 11-10-2023 ambulatory JUAN CAROLINA Facility:[facility] Start: 11-10-2023 End: 11-10-2023 Patient encounter procedure Juan Carolina MD Work Phone: Internal Medicine [place] Comment on above: Class 1 obesity with serious comorbidity and body mass index (BMI) of 31.0 to 31.9 in adult, unspecified obesity type (Primary Dx); IFG (impaired fasting glucose) Start: 10-07-2023 End: 10-07-2023 Office outpatient visit 25 minutes Jamee Hernandez APRN.CNP Work Phone: OB/Gynecology Comment on above: Gastroesophageal ref lux disease without esophagitis (Primary Dx); Hyperlipidemia, mixed; IFG (impaired fasting glucose); Vitamin D insufficiency; Poor sleep; Class 1 obesity with serious comorbidity and body mass index (BMI) of 31.0 to 31.9 in adult, unspecified obesity type Start: 09-29-2023 End: 09-29-2023 Patient encounter procedure Juan Carolina MD Work Phone: Internal Medicine [place] Comment on above: Obesity, Class I, BM I 30-34.9 (Primary Dx); Hyperlipidemia, mixed Start: 09-03-2023 End: 09-03-2023 Patient encounter procedure Jamee Hernandez APRN.[employer]URAL LENDER Work Phone: OB/Gynecology Comment on above: Gastroesophageal ref lux disease without esophagitis (Primary Dx); Hyperlipidemia, mixed; IFG (impaired fasting glucose); Vitamin D insufficiency; Screening for diabetes mellitus; Class 1 obesity with serious comorbidity and body mass index (BMI) of 31.0 to 31.9 in adult, unspecified obesity type Start: 08-28-2023 End: 08-28-2023 Patient encounter procedure Anthony Kan MD Work Phone: General Surgery Comment on above: Lipoma of lower extr emity, unspecified laterality (Primary Dx); Multiple lipomas Start: 08-19-2023 End: 08-19-2023 ambulatory JUAN CAROLINA Facility:[facility] Start: 08-05-2023 Telephone encounter Nichelle carlos RN Pre Anesthesia Start: 08-04-2023 End: 08-04-2023 Patient encounter procedure Anthony Kan MD Work Phone: General Surgery Comment on above: Lipoma of lower extr emity, unspecified laterality (Primary Dx) Start: 08-04-2023 End: 04-26-2024 Telephone encounter Anthony Kan MD Work Phone: General Surgery Comment on above: 08/19/2023 EXC LIPOMA LEG PUENTE Start: 07-23-2023 Telephone encounter Renetta alan APRN.AGRICULTURAL LENDER Work Phone: OB/Gynecology Comment on above: Orders Refill Request Start: 06-26-2023 End: 06-26-2023 ambulatory JUANITA JC Facility:[facility] Start: 06-25-2023 End: 06-25-2023 Telephone follow-up Zacarias Lieberman MD Work Phone: [employer] Start: 06-09-2023 End: 06-09-2023 Evaluation and management of inpatient NADINE FLYCKT Facility:[facility] Start: 06-08-2023 Evaluation and manag ement of inpatient NADINE FLYCKT Facility:[facility] Start: 06-07-2023 [facility] Start: 06-07-2023 End: 06-07-2023 Emergency department patient visit [facility] Work Phone: Start: 04-17-2022 End: 04-17-2022 Patient encounter procedure Zacarias Lieberman MD Work Phone: [employer] Start: 02-14-2022 End: 02-14-[address] Zacarias Lieberman Work Phone: [facility] Work Phone: Start: 02-14-2022 End: 02-14-[address] Zacarias Lieberman Work Phone: [facility]Laboratory Start: 02-14-2022 End: 02-14-[address] Zacarias Lieberman Work Phone: [facility] Start: 01-27-2022 End: 01-27-2022 Patient encounter status Zacarias Lieberman MD Work Phone: [employer] Start: 01-27-2022 End: 01-27-2022 Periodic preventive med est patient 40-64yrs Zacarias Lieberman MD Work Phone: [employer]. Start: 01-20-2022 End: 01-20-2022 Orders Zacarias Lieberman MD Work Phone: [employer]. Start: 01-14-2022 End: 01-14-2022 Orders Zacarias Lieberman MD Work Phone: [employer] Start: 01-02-2022 End: 01-02-2022 Office outpatient visit 15 minutes Zacarias Lieberman MD Work Phone: [employer] Start: 12-27-2021 Non-patient / Non-visit Dr. Adolph Lieberman Work Phone: [facility] [facility] Start: 12-27-2021 End: 12-27-2021 Non-patient / Non-visit Dr. Zacarias Lieberman Work Phone: [facility] Start: 12-26-2021 End: 12-27-2021 Evaluation and management of inpatient [facility] Start: 07-30-2021 End: 07-30-2021 Medication Zacarias Lieberman MD Work Phone: [employer] Start: 08-06-2020 End: 08-01-2020 Historical Summary Zacarias Lieberman MD Work Phone: [employer] Start: 08-06-2020 End: 08-06-2020 Patient encounter status Zacarias Lieberman MD Work Phone: [employer]; [employer] Start: 08-06-2020 End: 08-06-2020 Periodic preventive med est patient 40-64yrs Zacarias Lieberman MD Work Phone: [employer] Start: 07-30-2020 End: 07-30-2020 Orders Zacarias Lieberman MD Work Phone: [employer] Start: 07-09-2020 End: 07-09-2020 Orders Zacarias Lieberman MD Work Phone: [employer] Start: 07-03-2020 End: 07-03-2020 Office outpatient visit 15 minutes Zacarias Lieberman MD Work Phone: [employer] Start: 08-10-2019 End: 08-10-2019 Office outpatient visit 15 minutes Zacarias Lieberman MD Work Phone: [employer] Start: 10-18-2018 End: 10-18-2018 Office outpatient visit 15 minutes Zacarias Lieberman MD Work Phone: [employer] Start: 04-20-2018 End: 04-20-2018 Office outpatient visit 15 minutes Zacarias Lieberman MD Work Phone: [employer] Start: 04-07-2018 End: 04-07-2018 Office outpatient visit 15 minutes Zacarias Lieberman MD Work Phone: [employer] Start: 09-08-2017 End: 09-08-2017 Office outpatient visit 15 minutes Zacarias Lieberman MD Work Phone: [employer] Start: 08-11-2017 End: 08-11-2017 Historical Summary Zacarias Lieberman MD Work Phone: [employer] Start: 07-06-2017 End: 07-06-2017 Office outpatient visit 15 minutes Zacarias Lieberman MD Work Phone: [employer] Start: 03-27-2017 End: 03-27-2017 Emergency department patient visit MD FELI MAJANO Facility:[facility] Start: 10-17-2016 End: 10-17-2016 Office outpatient visit 15 minutes Zacarias Lieberman MD Work Phone: [employer] Start: 07-25-2016 End: 07-25-2016 Office outpatient visit 15 minutes Zacarias Lieberman MD Work Phone: [employer] Start: 01-19-2016 End: 02-01-2016 Orders Zacarias Lieberman MD Work Phone: [employer] Start: 11-05-2015 End: 11-05-2015 Medication Zacarias Lieberman MD Work Phone: [employer] Start: 09-13-2015 End: 09-13-2015 Medication Zacarias Lieberman MD Work Phone: [employer] Start: 08-22-2015 End: 08-22-2015 Medication Zacarias Lieberman MD Work Phone: [employer] Start: 08-01-2015 End: 08-01-2015 Patient encounter status Zacarias Lieberman MD Work Phone: [employer] Start: 08-01-2015 End: 08-01-2015 Periodic preventive med est patient 40-64yrs Zacarias Lieberman MD Work Phone: [employer] Start: 07-26-2015 End: 07-27-2015 Orders Zacarias Lieberman MD Work Phone: [employer] Start: 07-25-2015 End: 07-25-2015 Orders Zacarias Lieberman MD Work Phone: [employer] Start: 07-24-2015 End: 07-24-2015 Medication Zacarias Lieberman MD Work Phone: [employer] Start: 04-18-2015 End: 04-18-2015 Medication Zacarias Lieberman MD Work Phone: [employer] Start: 04-16-2015 End: 04-16-2015 Office outpatient visit 15 minutes Zacarias Lieberman MD Work Phone: [employer] Start: 02-14-2015 End: 02-14-2015 Medication Zacarias Lieberman MD Work Phone: [employer] Start: 01-12-2015 End: 01-12-2015 Medication Zacarias Lieberman MD Work Phone: [employer] Start: 12-29-2014 End: 12-29-2014 Office outpatient visit 15 minutes Zacarias Lieberman MD Work Phone: [employer] Start: 11-03-2014 End: 11-03-2014 Medication Zacarias Lieberman MD Work Phone: [employer] Start: 08-25-2014 End: 08-25-2014 Office outpatient visit 15 minutes Zacarias Lieberman MD Work Phone: [employer] Start: 08-07-2014 End: 08-07-2014 Medication Zacarias Lieberman MD Work Phone: [employer] Start: 07-17-2014 End: 07-17-2014 Medication Zacarias Lieberman MD Work Phone: [employer] Start: 06-02-2014 End: 06-02-2014 Medication Zacarias Lieberman MD Work Phone: [employer] Start: 04-07-2014 End: 04-07-2014 Medication Zacarias Lieberman MD Work Phone: [employer] Start: 02-13-2014 End: 02-13-2014 Medication Zacarias Lieberman MD Work Phone: [employer] Start: 01-06-2014 End: 01-06-2014 Medication Zacarias Lieberman MD Work Phone: [employer] Start: 12-15-2013 End: 12-16-2013 Patient encounter procedure Zacarias Lieberman MD Work Phone: [employer] Start: 11-11-2013 End: 11-11-2013 Medication Zacarias Lieberman MD Work Phone: [employer] Start: 09-26-2013 End: 09-26-2013 Medication Zacarias Lieberman MD Work Phone: [employer] Start: 08-03-2013 End: 08-03-2013 Medication Zacarias Lieberman MD Work Phone: [employer] Start: 06-03-2013 End: 06-03-2013 Medication Zacarias Lieberman MD Work Phone: [employer]. Start: 05-02-2013 End: 05-02-2013 Medication Zacarias Lieberman MD Work Phone: [employer] Start: 04-27-2013 End: 04-27-2013 Patient encounter procedure Zacarias Lieberman MD Work Phone: [employer]. Start: 03-28-2013 End: 03-28-2013 Medication Zacarias Lieberman MD Work Phone: [employer] Start: 02-18-2013 End: 02-18-2013 Medication Zacarias Lieberman MD Work Phone: [employer] Start: 01-15-2013 End: 01-15-2013 Medication Zacarias Lieberman MD Work Phone: [employer] Start: 12-10-2012 End: 12-10-2012 Medication Zacarias Lieberman MD Work Phone: [employer] Start: 11-18-2012 End: 11-18-2012 Patient encounter procedure Zacarias Lieberman MD Work Phone: [employer] Start: 11-10-2012 End: 11-10-2012 Medication Zacarias Lieberman MD Work Phone: [employer] Start: 10-22-2012 End: 10-22-2012 Patient encounter procedure Zacarias Lieberman MD Work Phone: [employer] Start: 10-05-2012 End: 10-05-2012 Medication Zacarias Lieberman MD Work Phone: [employer]. Start: 07-27-2012 End: 07-27-2012 Medication Zacarias Lieberman MD Work Phone: [employer]. Start: 05-12-2012 End: 05-12-2012 Patient encounter procedure Zacarias Lieberman MD Work Phone: [employer]. Start: 02-04-2012 End: 02-04-2012 Medication Zacarias Lieberman MD Work Phone: [employer] Start: 02-04-2012 End: 02-04-2012 Patient encounter procedure Zacarias Lieberman MD Work Phone: [employer] Start: 12-10-2011 End: 12-10-2011 Medication Zacarias Lieberman MD Work Phone: [employer] Start: 05-27-2011 End: 05-27-2011 Medication Zacarias Lieberman MD Work Phone: [employer] Start: 04-09-2011 End: 04-09-2011 Medication Zacarias Lieberman MD Work Phone: [employer] Start: 02-21-2011 End: 02-21-2011 Medication Zacarias Lieberman MD Work Phone: [employer] Start: 01-20-2011 End: 01-20-2011 Patient encounter procedure Zacarias Lieberman MD Work Phone: [employer] Start: 01-20-2011 End: 01-20-2011 Patient encounter status Zacarias Lieberman MD Work Phone: [employer] Start: 12-30-2010 End: 12-30-2010 Patient encounter procedure Zacarias Lieberman MD Work Phone: [employer] Start: 12-30-2010 End: 12-30-2010 Medication Zacarias Lieberman MD Work Phone: [employer] Start: 12-25-2010 End: 12-25-2010 Orders Zacarias Lieberman MD Work Phone: [employer]. Start: 09-18-2010 End: 09-18-2010 Medication Zacarias Lieberman MD Work Phone: [employer] Start: 08-15-2010 End: 08-15-2010 Medication Zacarias Lieberman MD Work Phone: [employer] Start: 07-01-2010 End: 07-01-2010 Medication Zacarias Lieberman MD Work Phone: [employer] Start: 04-05-2010 End: 04-05-2010 Medication Zacarias Lieberman MD Work Phone: [employer] Start: 04-05-2010 End: 04-05-2010 Historical Summary Zacarias Lieberman MD Work Phone: [employer]. Start: 02-13-2010 End: 02-13-2010 Historical Summary Zacarias Lieberman MD Work Phone: [employer] Patient encounter status Gabbie Mao LPN [employer] Patient encounter status Zacarias Lieberman MD Work Phone: [employer] Procedures Date Procedure Procedure Detail Performing Clinician Start: 11-04-2024 Mri brain brain stem w/o contrast material Scarlet Ha MD Work Phone: Start: 10-19-2024 End: 10-19-2024 Visual field xm uni/bi w/interp extended exam Fely Comer MD Work Phone: Start: 10-19-2024 Ophthalmic us dx cor marco a pachymetry uni/bi Fely Comer MD Work Phone: Start: 10-19-[address] Juan Carolina MD Work Phone: Start: 09-29-2023 Adult depression screening assessment Anthony Kan MD Work Phone: Start: 06-18-2023 Lipid 1996 panel - S bossman or Plasma Renetta Birmingham CUSTOMER SERVICE ADVISOR.[employer]IC[employer]URAL [employer]ER Work Phone: Start: 01-27-2022 End: 01-27-2022 Depression screening Zacarias Lieberman MD Work Phone: Start: 01-27-2022 End: 01-27-2022 Scr dep neg, no plan reqd Zacarias Lieberman MD Work Phone: Start: 01-20-2022 End: 01-20-2022 Comprehensive metabolic 2000 panel - Serum or Plasma Sally Chen [employer] Start: 01-20-2022 End: 01-20-2022 Lab findings surveillance Sally Sher correia [employer] Comment on above: 89 Start: 01-20-2022 End: 01-20-2022 Lipid panel Sally Chen LP N Start: 12-26-2021 Computed tomography of abdomen and pelvis with intravenous contrast Start: 08-06-2020 End: 08-06-2020 Depression screening Zacarias Lieberman MD Work Phone: Start: 08-06-2020 End: 08-06-2020 Pos clin depres scrn f/u doc Zacarias Lieberman MD Work Phone: Start: 10-18-2018 End: 10-22-2018 Ct head/brain w/o contrast material Zacarias Lieberman MD Work Phone: Start: 04-07-2018 End: 04-07-2018 Flu imm no admin doc josette Zacarias Hill D Work Phone: Start: 09-08-2017 End: 09-08-2017 Body mass index documented Zacarias Lieberman MD Work Phone: Start: 04-02-2017 Colonoscopy Renetta [facility] dayanna CUSTOMER SERVICE ADVISOR.[employer]RICULTURAL LENDER Work Phone: Start: 01-24-2014 End: 01-24-2014 Screening for malignant neoplasm of large intestine Sally Chen [employer] Comment on above: Within Normal Limits . colonoscpy ~ 2013 Start: 11-18-2012 End: 11-18-2012 Dexamethasone sodium phos Geri J Palm er PA-C Work Phone: Start: 02-04-2012 End: 02-04-2012 Triamcinolone acet inj NOS Zacarias Lieberman MD Work Phone: Appendectomy Sally ye [employer] Comment on above: had it twice ( stump was missed first time ) Enteric Bacteriology Dr. Wil Lieberman Work Phone: foot surgery Sally ye [employer] Comment on above: R foot, bunion, has pin in place Laboratory test resu lt abnormal Abnormal laboratory test result Juan Carolina MD Work Phone: Laparoscopy Sally ye [employer] Comment on above: endometriosis x 2 19 93 and 2015 Total hysterectomy Sally Chen [employer] Plan of Treatment Date Care Activity Detail Author Start: 06-18-2028 Lipid panel Lipid Screening [facility] Start: 06-09-2028 Screening for malignant neoplasm of colon Sigmoidoscopy [facility] Start: 04-21-2027 Screening for malignant neoplasm of colon [facility] Start: 04-02-2027 Screening for malignant neoplasm of colon [facility] Start: 06-18-2026 Diabetes Screening Diabetes Screening [facility] Start: 12-13-2024 End: 12-13-2024 Patient encounter procedure 12/13/2024 2:15 PM EDT Office [place] [address] Fely Comer MD [place] [id number] Glaucoma suspect/OCT and VF Ophthalmology Comment on above: Glaucoma suspect/OCT and VF Start: 12-08-2024 Patient referral [facility] Work Phone: Start: 11-04-2024 End: 11-04-2024 Patient encounter procedure 11/04/2024 7:30 AM EDT Appointment Radiology [address] [place] [address] Abnormal head movements [R25.0] Radiology Comment on above: Abnormal head movements [R25.0] Start: 10-27-2024 End: 01-26-2025 CBC W Auto Differential panel - Blood COMPLETE BLOOD COUNT AND DIFFERENTIAL Lab Routine Abnormal laboratory test result Expected: 10/27/2024, Expires: 01/26/2025 [facility] Work Phone: Comment on above: Expected: 10/27/2024, Expires: Start: 10-19-2024 [facility] Start: 10-19-2024 Thyroid stimulating hormone measurement [facility] Start: 09-28-2024 Anxiety Screening Anxiety Screening [facility] Start: 09-28-2024 Depression Screening Depression Screening [facility] Start: 07-18-2024 End: 07-18-2024 Patient encounter procedure 07/18/2024 1:00 PM EST Office Visit OB/Gynecology [address] [place] [address] Renetta Birmingham APRN.[employer]RICULTURAL LENDER [address] [place] [address] Annual OB/Gynecology Comment on above: Annual Start: 07-01-2024 Screening for malignant neoplasm of breast Mammogram Screening [facility] Start: 12-22-2023 End: 12-22-2023 Patient encounter procedure 12/22/2023 4:00 PM EDT Office Visit OB/Gynecology [address] [place] [address] Jamee Hernandez APRN.[employer]ICULTURAL LENDER [address] [place] [address] wt mgmt f/up OB/Gynecology Comment on above: wt mgmt f/up Start: 12-07-2023 End: 12-07-2023 Patient encounter procedure 12/07/2023 5:00 PM EDT Office Visit Internal Medicine [place] [address] [place] [address] Juan Carolina MD [address] [place] [address] 4 week follow-up [facility] [place] Comment on above: 4 week follow-up Start: 06-22-2023 Depression Assessment Depression Assessment [facility] Start: 06-07-2023 [facility] Start: 01-27-2022 Screening mammography bi 2-view breast inc cad Mammogram Bilateral Screening Digital w/CAD ([id number]) Start: 27-Jan-2022 Intent [facility] Start: 12-27-2021 Patient discharge [facility] Work Phone: Start: 12-27-2021 [facility] Work Phone: Start: 12-26-2021 Application of intermittent pneumatic compression device [facility] Work Phone: Start: 12-26-2021 Following clinical pathway protocol [facility] Work Phone: Start: 12-26-2021 Assessment of risk of venous thromboembolism [facility] Work Phone: Start: 12-26-2021 Insertion of catheter into peripheral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 early satiety, indigestion, or increased flatulence. Bladder: No dysuria, gross hematuria, urinary frequency, urinary urgency, or incontinence Breast: No breast lumps, nipple d/c, overlying skin changes, redness or skin retraction Allergies and current medication updated:Yes SENSITIVE EXAM: The sensitive examination was discussed with the Patient or Patient's Authorized Recruiting Intern. As applicable, any other physician, advance practice provider, medical student, or other health professional student that will be observing or involved in the sensitive examination for educational or training purposes was discussed with the Patient or Authorized Recruiting Intern. The Patient or Authorized Recruiting Intern has agreed to proceed with the sensitive examination. (Sensitive examination includes inspection and/or palpation of the breasts, pelvis, prostate and anorectal regions). EXAM: BP 110/60 Ht 5' 2.559" (1.59m) Wt 165 lb 6.4 oz (75.0kg) LMP 12/01/2016 BMI 29.71 kg/(m^2). GENERAL: pleasant, female in no apparent distress HEENT: Normocephalic, atraumatic, mucus membranes moist, and no lesions DERMATOLOGY: Normal, without lesions, non-icteric, and non-hirsute BREAST: soft, non-tender, symmetric, no dominant mass, normal nipple-areolar complex, no lymphadenopathy, and no nipple discharge CHEST: Normal inspiratory effort ABDOMEN: soft, non-tender, and no masses PELVIC: external genitalia normal, normal Bartholin's glands, urethra, [place]'s glands, no vulvar lesions, physiologic discharge present, normal appearing perineal body and perianal region, cervix surgically absent, atrophic changes BIMANUAL: no adnexal masses, non-tender, and uterus surgically absent RECTOVAGINAL: deferred. NEURO: alert and oriented x3,exam grossly non-focal EXTREMITIES: normal ASSESSMENT/PLAN: 1. Encounter for gynecological examination (general) (routine) without abnormal findings - ICD9: V72.31, ICD10: Z01.419 (primary diagnosis) - Completed pelvic and breast exam - Encouraged monthly BSE - Follow up for annual exam in one year. - JOVANNA SCREENING W SEAN 2. Encounter for screening mammogram for breast cancer - ICD9: V76.12, ICD10: Z12.31 - JOVANNA SCREENING W SEAN 3. Vaginal odor - ICD9: 625.8, ICD10: N89.8 Will notify patient of test results. - if negative recommended boric acid suppositories - SAMUEL/TRICHOMONAS NAAT - BACTERIAL VAGINOSIS NAAT 4. Menopausal symptoms - ICD9: 627.2, ICD10: N95.1 Reordered Estrace and Prometrium Renetta Birmingham APRN.CNP Medical Decision Making: Problems: Low: Acute, uncomplicated illness or injury Data: Unique test(s) ordered: 2 Risk: Moderate: Drug management Medical Decision Making Level: 3 - Low [facility] Medical Records Department [address] [place] [address] Discharge Summary 04/20/24 0934 MR#: [id number] Acct: [id number] Name: FRANK VENTURA Rep #: [id number] : 1970 53 From: Karissa Hernandez MD PCP: Dr. Juan Carolina MD Status:ADM IN [id number] Prov[facility] Date of Admission: 04/18/24 Date of Discharge: 04/20/24 Primary Care Physician: Dr. Juan Carolina MD Reason For Visit: ACUTE COLITIS Diagnosis Discharge Diagnosis (1) Acute lower GI bleeding: Status: Acute Code(s): K92.2 - Gastrointestinal hemorrhage, unspecified (2) Abdominal pain: Status: Acute Code(s): R10.9 - Unspecified abdominal pain Plan #Acute colitis * Admitted with a complaint of abdominal pain. She also had rectal bleeding. Imaging done showed colitis of the transverse, descending and rectosigmoid colon * States she does have a history of ischemic colitis. * Being hydrated with IV fluids. Blood pressure running low at 97/64 today. * For colonoscopy today. GI on board. * Good today pantoprazole and IV Zosyn. * WBC is down to 8.5 today. * on IV morphine prn for pain. * Stool studies also ordered to make sure this is not infectious. Hypercoagulable panel as well as workup for adrenal insufficiency ordered. GI due to history of low blood pressure which developed after hysterectomy. #DVT prophylaxis: SCDs CODE STATUS: Full code * P Medications at Discharge Home Medications hyoscyamine sulfate 0.125 mg disintegrating tablet 0.125 mg PO BID-QID PRN abdominal pain #120 tabs 10/21/22 omeprazole 40 mg capsule,delayed release 40 mg PO DAILY #90 caps 10/21/22 semaglutide (weight loss) 1.7 mg/0.75 mL subcutaneous pen injector 1.7 mg subcut Q7D 04/18/24 ciprofloxacin HCl 500 mg tablet 500 mg PO BID #10 tabs 04/20/24 metronidazole 500 mg tablet 500 mg PO Q8H #15 tabs 04/20/24 Hospital Course Operations None Procedures Colonoscopy Summary of Care Provided Minutes Spent on Discharge: 55 Hospital Course: FRANK VENTURA, is a 53 F with a PMH as outlined who presents via the ED on 04/18/2024 with a complaint of abdominal pain and rectal bleeding. Her symptoms started in the early hours of hte day of admission. It started with the abdominal pain, which was mainly in the left lower quadrant, and subsequently had bright red bleeding per rectum. She admits to a history of ischemic colitis.Review of systems was otherwise negative. Vitals in the ED were BP of 129/77, IL of 82, RR of 15 and temp of 96.9F. She was saturating at 97% on room air. CBC showed hb of 15.7, wbc was 11.5 and platelets of 390. Chemistry showed sodium of 143, potassium of 4.2, bicarb of 25 and anion gap of 9. Cr was 0.98. Lactic acid was 2.1. CT of the abdomen and pelvis showed colitis of the transverse colon as well as splenic flexure, descending colon and rectosigmoid colon. She was admitted to be managed for acute colitis. She was started on IV Zosyn in the ED. Gastroenterology was consulted. Her abdominal pain did improve and she felt much better. She had colonoscopy which showed segmental moderate inflammation in hte sigmoid, descending colon and splenic flexure and in the transverse colon secondary to colitis. These were biopsied. She felt much better and was able to tolerate a diet. She was discharged on PO ciprofloxacin and PO metronidazole x 5 days. She is to follow up with her PCP and with gastroenterology within 1-2 weeks. Patient seen and examined prior to discharge. She had no active complaints. was by her bedside. Review of systems is otherwise negative. Labs and vitals reviewed. Home meds reviewed and reconciled. Physical Exam Const alert, oriented x3, no apparent distress and average body habitus General Appearance: cooperative and comfortable Orientation / Consciousness: awake Exam Limitations: no limitations HEENT normocephalic, head/scalp atraumatic, hearing grossly normal bilaterally and moist oral mucous membranes Mouth: oral and palatal mucosa normal Eyes PERRL, EOMs intact bilaterally and conjunctivae normal Neck no lymphadenopathy and supple Resp normal respiratory effort, normal air movement, no retractions and clear to auscultation bilaterally Cardio regular rate, regular rhythm, S1 normal heart sound, S2 normal heart sound and no murmurs GI normal to inspection, nondistended, normoactive bowel sounds Extremity normal to inspection, full ROM, normal capillary refill and no clubbing, cyanosis or edema General Extremity: no tenderness to palpation of joints or extremities Skin no rashes or lesions noted General Skin Exam: no breakdown Neuro oriented x3, CN's II-XII intact bilaterally, moves all extremities and no focal motor deficits Sensorium / Orientation: awake and alert Motor Exam: strength 5/5 throughout Psych thought process normal, coopera (more content not included)...[facility]05-21-[facility]24 NoteHNO ID: [id number] Author: JUAN CAROLINA MD Service: ? Author Type: Physician Type: Progress Notes Filed: 11/10/2023 09:12 Note Text: This note was created using Logglyriter. Subjective Patient presents with: Weight Problem Frank Ventura is a 53 year old female. [place] with topiramate from [employer]. She was following her diet. Her weight has not decreased. She has made preliminary inquiries to get a gastric sleeve done in [place]. She was aware of risks. She had no side effects from phentermine. Review of Systems Constitutional: Negative. Cardiovascular: Negative. Gastrointestinal: Negative. Neurological: Negative. Psychiatric/Behavioral: Negative. ACTIVE PROBLEM LIST Gastroesophageal Reflux Disease Without Esophagitis Class 1 Obesity With Serious Comorbidity and Body Mass Index (Bmi) of 31.0 to 31.9 in Adult Hyperlipidemia, Mixed Peripheral Sensory Neuropathy Ischemic Colitis (Hcc) Tubular Adenoma of Colon Chronic Constipation Vitamin D Insufficiency Ifg (Impaired Fasting Glucose) Social History Tobacco Use Smoking status: Former Packs/day: 0.50 Years: 5.00 Additional pack years: 0.00 Total pack years: 2.50 Types: Cigarettes Quit date: 06/22/2009 Years since quittin.3 Smokeless tobacco: Never Vaping Use Vaping Use: Never used Substance Use Topics Alcohol use: Not Currently Alcohol/week: 1.0 standard drink of alcohol Types: 1 Glasses of Wine (5oz) per week Drug use: No Current Outpatient Medications Medication Sig topiramate (TOPAMAX) 25 mg tablet Take 1 tablet by mouth two times a day. Phentermine HCl 15 mg capsule Take 1 capsule by mouth daily before breakfast for 60 days. Do not start before October 29, 2023. Estradiol (ESTRACE) 0.5 mg tablet Take 1 tablet by mouth once daily. progesterone micronized (PROMETRIUM) 200 mg capsule Take 1 capsule by mouth daily at bedtime. omeprazole (PRILOSEC) 40 mg capsule Take 1 capsule by mouth once daily. estradiol (ESTRACE) 0.01 % (0.1 mg/gram) vaginal cream Use 0.5g vaginally at bedtime for 2 weeks then 1-3 time/weeks for maintenance. No current facility-administered medications for this visit. Objective BP 112/70 (BP Site: Left Arm, BP Position: Sitting, BP Cuff Size: Large Adult) Pulse 80 Temp 36.9 ?C (98.5 ?F) (Temporal) Resp 16 Wt 84.8 kg (187 lb) LMP 12/01/2016 BMI 33.93 kg/m? Physical Exam Constitutional: Appearance: She is obese. She is not ill-appearing. Neurological: Mental Status: She is alert. Psychiatric: Mood and Affect: Mood normal. Behavior: Behavior normal. Assessment and Plan 1. Class 1 obesity with serious comorbidity and body mass index (BMI) of 31.0 to 31.9 in adult, unspecified obesity type - ICD9: 278.00, V85.31, ICD10: E66.9, Z68.31 (primary diagnosis) Stable - Behavioral and pharmacological intervention - PHENTERMINE 37.5 MG TABLET Shared medical decision making was done. Discussed medication dosage, usage, goals of therapy, and side effects. Recheck in 4 weeks. Weight loss needed for continuation. We reviewed risks of medical tourism. 2. IFG (impaired fasting glucose) - ICD9: 790.21, ICD10: R73.01 Monitor. Juan Carolina [facility]05-21-2024 History of Present illness Narrative* Juan Carolina MD - 11/10/2023 8:47 AM EDT This note was created using Logglyriter. Subjective Patient presents with: Weight Problem Frank Ventura is a 53 year old female. She [place] with topiramate from [employer] [employer]. She was following her diet. Her weight has not decreased. She has made preliminary inquiries to get a gastric sleeve done in [place]. She was aware of risks. She had no side effects from phentermine. Review of Systems Constitutional: Negative. Cardiovascular: Negative. Gastrointestinal: Negative. Neurological: Negative. Psychiatric/Behavioral: Negative. ACTIVE PROBLEM LIST Gastroesophageal Reflux Disease Without Esophagitis Class 1 Obesity With Serious Comorbidity and Body Mass Index (Bmi) of 31.0 to 31.9 in Adult Hyperlipidemia, Mixed Peripheral Sensory Neuropathy Ischemic Colitis (Hcc) Tubular Adenoma of Colon Chronic Constipation Vitamin D Insufficiency Ifg (Impaired Fasting Glucose) Social History Tobacco Use Smoking status: Former Packs/day: 0.50 Years: 5.00 Additional pack years: 0.00 Total pack years: 2.50 Types: Cigarettes Quit date: 06/22/2009 Years since quittin.3 Smokeless tobacco: Never Vaping Use Vaping Use: Never used Substance Use Topics Alcohol use: Not Currently Alcohol/week: 1.0 standard drink of alcohol Types: 1 Glasses of Wine (5oz) per week Drug use: No Current Outpatient Medications Medication Sig topiramate (TOPAMAX) 25 mg tablet Take 1 tablet by mouth two times a day. Phentermine HCl 15 mg capsule Take 1 capsule by mouth daily before breakfast for 60 days. Do not start before October 29, 2023. Estradiol (ESTRACE) 0.5 mg tablet Take 1 tablet by mouth once daily. progesterone micronized (PROMETRIUM) 200 mg capsule Take 1 capsule by mouth daily at bedtime. omeprazole (PRILOSEC) 40 mg capsule Take 1 capsule by mouth once daily. estradiol (ESTRACE) 0.01 % (0.1 mg/gram) vaginal cream Use 0.5g vaginally at bedtime for 2 weeks then 1-3 time/weeks for maintenance. No current facility-administered medications for this visit. Objective BP 112/70 (BP Site: Left Arm, BP Position: Sitting, BP Cuff Size: Large Adult) Pulse 80 Temp 36.9 C (98.5 F) (Temporal) Resp 16 Wt 84.8 kg (187 lb) LMP 12/01/2016 BMI 33.93 kg/m Physical Exam Constitutional: Appearance: She is obese. She is not ill-appearing. Neurological: Mental Status: She is alert. Psychiatric: Mood and Affect: Mood normal. Behavior: Behavior normal. Assessment and Plan 1. Class 1 obesity with serious comorbidity and body mass index (BMI) of 31.0 to 31.9 in adult, unspecified obesity type - ICD9: 278.00, V85.31, ICD10: E66.9, Z68.31 (primary diagnosis) Stable - Behavioral and pharmacological intervention - PHENTERMINE 37.5 MG TABLET Shared medical decision making was done. Discussed medication dosage, usage, goals of therapy, and side effects. Recheck in 4 weeks. Weight loss needed for continuation. We reviewed risks of medical tourism. 2. IFG (impaired fasting glucose) - ICD9: 790.21, ICD10: R73.01 Monitor. Juan Carolina MD documented in this encounterAv[facility]04-17-[facility] Instructions* Patient Instructions* Jamee Hernandez APRN.[facility] - 10/07/2023 4:40 PM EDT Images from the original note were not included. - Whole food low-carb diet with 30 g of protein 3 times a day and up to 30 g of carbs at lunch and dinner only. - 30 grams of protein for your first meal of the day decreases your hunger during the day by up to 40 % Premier Protein or generic 30 gm protein 1 gm sugar or 5 eggs or 2-3 eggs and some unbreaded meat and/or cheese. No fruit, vegetables, bread, grain, yogurt, cottage cheese, Smoothies, etc. - Walk for 15 minutes immediately a meal. Meals - protein is a goal and carbohydrates are a limit Snacks - all protein or more protein than carbs Use tracking log as a worksheet and bring with you to your next appointment. Protein - no carbs Egg 1 large - 6g Egg white 1 large 3.6g 3 oz is approximately the size of a deck of cards and equals 21 g protein so 4 oz is 28 gm protein Beef, Chicken, [place], Pork, Pradhan 1 oz 7g Fish, Tuna Fish 1 oz 7g (Starkist tuna packet 2.6 oz 17 gm protein) Seafood (Crabmeat, Shrimp, Lobster) 1 oz 6g Protein shakes (read labels) Premier Protein or generic [employer] Equate, [employer] High Performance- 30g protein & 1g carb - meal replacement Premier Protein plant protein powder - 25 gm protein, 0 suger/2 carb Vanilla and chocolate (not a meal replacement) Fairlife 30 gram protein - 30g protein & 3g carb BOOST Glucose Control Max 30g Protein Nutritional Drink - 30g protein & 1 carb - meal replacement Slimfast High Protein - 20g protein & 1g carb Ensure Max Protein Nutrition Shake 30g protein & 2 carb Protein AND carbs Beef/[place] Jerky 1 oz dried 10-15g protein - check carb count, can be high if sugar added Slim [place] - 6 gm protein and 4 net carb Great Value original turkey sausage sticks - 7 gm protein and 2 gm carb Trixie (at [facility]) Original smoked sausage sticks - 8 gm protein and 0 carb Imitation Crab Meat 1 oz - 2g protein & 4g carb Milk, skim 2% or 1% 8 oz - 8g protein & 12g carb Kosovan yogurt Full Fat Kosovan Yogurt 1 cup - 20.4g protein & 9.1g carb 2% Kos[place] Yogurt 1 cup - 22.7g protein & 9.1g carb 0% (fat-free) Kosovan Yogurt - 1 cup 24g protein & 9.3g carb :ratio, KETO Friendly Dairy Snack 1 single svg - 15g protein & 2g carb :ratio Protein 1 single svg - 25g protein & 8g carb Dannon Light + Fit 1 single csvg - 12g protein & 9g carb Two Good Lowfat [place] Yogurt, [place], Lower Sugar - 12g protein & 2g carb Oikos Triple Zero Kosovan Nonfat Yogurt 1 single svg - 15g protein & 7g carb Aldi Protein Kosovan yogurt 15g protein & 7g carb Cheese each oz Brie 5.9g protein & 0.1g carb Cheddar Cheese 7g protein & 0.4g carb Mozzarella Cheese 6.3g protein & 0.6g carb Larry Cheese 6.7g protein & 0.7g carb Parmesan Cheese 10g protein & 0.9g carb Cream Cheese 1.7g protein & 1.2g carb Feta 4g protein & 1.2g carb [place] Cheese 7.6g protein & 1.5g carb Enriquez s Low Fat Cottage Cheese 1/2cup 12g protein & 4g carb Legumes Lentils cup 9g protein & 20g carb Aragon beans cup 7g protein & 20g carb Kidney, Black, [place], Cannellini beans cup 8g protein & 20g carb Soybeans 1/2 c 14g protein & 8.5g carb Peanut butter, natural 2 Tbsp 7-8g protein & 4g net carbs, 190 calories PB2 powder 2 Tbsp 6g protein & 5g carb [place] milk, unsweetened 8 oz 1g protein & 2g carb Soy milk 8 oz 3.5g protein & 1.6g carb Tofu 1/2 cup 10g protein & 2.3g carb Nuts and Seeds per oz Pumpkin Seeds - 6.9g protein & 5g carb Almonds - 5.9g protein & 6.1g carb [place] Seeds - 5.8g protein & 5.6g carb Pistachios - 5.8g protein & 7.8g carb Cashews - 5.1g protein & 9.2g carb Walnuts - 4.3g protein & 3.8g carb Hazelnuts - 4.2g protein & 4.7g carb [place] Nuts - 4.0g protein & 3.4g carb Pecans - 2.6g protein & 3.9g carb Peanuts - 7g protein & 4.6g carb <15 gram carb fruit options Berries have the lowest sugar content 1/2 cup diced honeydew melon - 8 carbs 1/2 cup diced watermelon - 6 carbs One half medium grapefruit - 10.5 carbs 1 medium orange -15.5 carbs 1 medium peach -14.5 carbs 1/2 cup fresh cranberries - 6.5 carbs 1 medium plum -7.5 carbs 1/2 cup raspberries -7.5 carbs 1 medium Dottie -9 carbs 1/2 cup fresh pineapple -11 carbs 1 medium nectarine - 15 carbs 1/2 cup blueberries - 11 carbs - may actually help you lose weight 1 medium kiwi without skin - 11 carbs 1/2 cup fresh cherries -11 carbs 1 medium tangerine -12 carbs 1/2 cup sliced enrique -14 carbs 1/2 medium banana 1/2 c grapes 1/2 medium apple - 12.5 carbs 1/2 c strawberries - 12.7 carbs 1 prune - 6 carbs 5 (FIVE) gram carb vegetable options 1 cup raw OR cup cooked: Asparagus Cabbage Spinach Peppers Green beans Carrots Tomato Harmony Baez sprouts Cauliflower Lettuce Snap peas Broccoli Eggplant Zucchini Turnips Spaghetti squash Brussel sprouts 15 gram carb vegetable options cup cooked green peas cup cooked corn or hominy corn on the cob, large (5 oz) cup cooked sweet potato, plain cup cooked potato, plain 1 small potato or sweet potato 1 cup winter squash (pumpkin, acorn, butternut) 1 cup marinara or pasta sauce - check label cup tomato juice cup tomato puree Beans, Seeds, Nuts cup cooked beans (kidney, clark, red, green, etc.) cup cooked lentils cup baked beans 4 tablespoons nut butter Grains Brown rice 1/2 c 5.5g protein 24 carb White long-grain rice 1/2 c 2g protein 22.5 carb Quinoa 1/2 c 4 gm complete protein 25 carb Oatmeal, old fashioned 1/2 c 5g protein 27g carb 30 High Protein Snack Ideas 1. Jerky 2. [place] mix without dried fruit 3. [place] roll-ups 4. Kosovan yogurt 5. Veggies and yogurt dip 6. Tuna 7. Hard-boiled eggs 8. Peanut butter with celery 9. Cheese slices/ Cheese Stick 10. Handful of almonds, peanuts or walnuts 11. Cottage Cheese 12. Beef sticks 13. Protein bars 14. Canned [place] 15. Pumpkin seeds 16. Nut butter 17. Protein shakes 18. Avocado and chicken salad 19. Egg muffins 20. Leftover protein or lunch meat 21. 1/2 c blended cottage cheese with 1 Tbsp sugar-free dry cheesecake pudding mix 12g protein 10 carb TOPIRAMATE -- Take 25mg daily x 1-2 weeks You can take one with your phentermine in the morning and one at bedtime if you would like. -- Then increase to 50mg daily after the initial two weeks so long as you are not having any side effects. -- You can take the tablet it at night at first (because of potential sleepiness side effects), butthen you can take earlier around dinner after you have started the medication for a few days. You also may be able to take it in the morning if easier. -- We may increase the dose to 75mg a few weeks later if there is no change with 50mg, Typically the maximum medication dose would be 150mg daily but rarely would we need to titrate medication dose that high. -- The exact mechanism of topiramate on energy balance regulation is not clearly understood. Topiramate affects body mass index, fasting egiuxvg-ga-lsxtxwy ratio, and serum leptin and cortisol levels. It has shown to improve hypothalamic insulin and leptin signaling and action and reduce obesity inmice. These changes may be correia factors in weight loss due to topiramate. If at any point you are feeling the effects of the medication you can stay at that dose or if you experience side effects you can decrease it to the previous dose. -- Please see the handout to review the potential side effects and to explain this further -- Please let me know if you experience any changes in your vision, worsening depression or mood problems, or an increase in suicidal thoughts or behaviors. --This medication should NOT be combined with alcohol. Risks of drinking alcohol while taking this medication include mental and psychological side effects, including confusion, dizziness, drowsiness, and depression. -- There is an increased risk for oral clefts when topiramate is used in the first trimester of . -- There is a possible decrease in contraceptive efficacy when using estrogen- containing control with topiramate, please use a back up form of control such as condoms and monitor for throughout treatment. -- If you decide that you would like to get or if you have any of these side effects please let me know and we can safely discontinue the medication. - If you are on loop diuretic or thiazide diuretic we will want to monitor your potassium level, especially if you have a history of low potassium. - It is important to taper off of this medication when we finished with treatment, typically decreasing the dose 25 mg a week. Stopping Topiramate abruptly can cause irritability, anxiety and difficulty concentrating. Topiramate (toe pyre a mate) What are the common names? Topamax Why is this medication prescribed? Topiramate is an anti-epileptic medications which has been approved by the FDA for patients 10 years of age or older for treatment of seizures. However, topiramate also has other uses such as the treatment of migraines. It also causes decrease in appetite and weight loss. The mechanism of weight loss is thought to be through inhibition of mitochondrial enzymes involved in energy expenditure and metabolism. Topiramate may work by helping you feel less hungry, less driven to eat, more satisfied with less food. What special precautions should I follow? Before having topiramate prescribed, tell your doctor and pharmacist: If you have allergies to any component of topiramate If you are , plan to become , are breast-feeding, or if you become while taking topiramate What are the warnings and precautions for this medication? Immediately discontinue the medicine and seek medical help if you have severe cognitive/neuropsychiatric adverse symptoms or eye symptoms. Cognitive/neuropsychiatric adverse events: symptoms may include confusion, psychomotor slowing, difficulty with concentration/attention, difficulty with memory, speech or language problems, particularily word-finding difficulties, somnolence or fatigue Acute myopia and secondary angle closure glaucoma, usually within 1 month of starting treatment: symptoms may include blurred vision, redness and/or pain in the eye Oligohydrosis (decrease sweating) and hyperthermia (elevation in body temperature) Increase in suicidal behavior or ideation Metabolic acidosis, non-gap hyperchloremic (decreased serum bicarbonate below normal levels) resulting in hyperventilation or fatigue Kidney stones Paresthesias (numbness or tingling in hands or feet) Ataxia Dizziness Increase in urination frequency Drug interactions. Use of monamine oxidase inhibitors (MAOI s), valproic acid, Caution use with dehydration or diarrheal illness, hepatic or renal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 Current Contraception: hysterectomy, has right ovary Obesity ROS/ FHx GEN: Fatigue:yes CV: h/o palpitations/cardiac arrhythmia yes-PSVT (Cardioverted 2007) Chest pain: no HTN: no PULM: Asthma:no GI: GERD:yes ; Gallstones:no ; Fatty liver disease:yes Pancreatitis: no MSK: Joint Pain:yes, hips, knees : Nephrolithiasis: no Symptoms of PCOS: no NEURO: Migraines/BLACK: no; H/o seizures: no Glaucoma:no; Cataracts no Symptoms of or History of pseudotumor cerebri:no Family or personal History of MEN2 or Medullary thyroid cancer: no PE BP 106/72 Pulse 82 Ht 5' 2.25" (1.581 m) Wt 178 lb (80.7 kg) LMP 12/01/2016 SpO2 97% BMI 32.30 kg/m Waist Circumference: 41.5 Neck Circumference: 14 GENERAL: Female in NAD. Central adiposity. SKIN: acanthosis nigricans no, Skin tags: yes Hirsutism: yes HEENT: PERRL, No supraclavicular adiposity. No dorsal adiposity. RESPIRATORY: CBTA CARDIAC: RRR ABDOMEN: Protuberant ; EXTREMITIES: peripheral edema: mild Results: reviewed with the patient Admission on 08/19/2023, Discharged on 08/19/2023 Component Date Value Ref Range Status Case Report 08/19/2023 Final Value:Surgical Pathology Report Case: [id number] Authorizing Provider: Anthony Kan MD Collected: 08/19/2023 02:51 PM Ordering Location: [facility] Surgery Received: 08/20/2023 08:23 AM Pathologist: Victor Manuel Ya Specimens: A) - LIPOMA, right leg B) - LIPOMA, left leg C) - SKIN EXCISION, right leg FINAL DIAGNOSIS 08/19/2023 Final Value:This result contains rich text formatting which cannot be displayed here. Gross Description 08/19/2023 Final Value:This result contains rich text formatting which cannot be displayed here. Clinical History 08/19/2023 Final Value:This result contains rich text formatting which cannot be displayed here. Performing Lab 08/19/2023 Final Value:This result contains rich text formatting which cannot be displayed here. Results Only on 08/06/2023 Component Date Value Ref Range Status English Faculty Member 08/06/2023 Final Value:Provider MANUEL your patient FRANK VENTURA started their [facility] on 08-06-2023 and completed it on 08-06-2023 Morena program: PATIENT SAFETY INSTRUCTIONS FOR HEALTHCARE SETTINGS Appointment on 07/17/2023 Component Date Value Ref Range Status FSH 07/21/2023 132.9 See comment mIU/mL Final Estradiol 17B 07/21/2023 <25 pg/mL Final Results Only on 06/19/2023 Component Date Value Ref Range Status English Faculty Member 06/19/2023 Final Value:Provider your patient FRANK VENTURA has not started their [facility] program, time has . [facility]na program: PATIENT SAFETY INSTRUCTIONS FOR HEALTHCARE SETTINGS Results Only on 06/19/2023 Component Date Value Ref Range Status English Faculty Member 06/19/2023 Final Value:Provider VALENCIA your patient FRANK VENTURA started their [facility] program on 2023-06-19 but has NOT completed their [facility] program, time has . [facility]na program: [facility] WHAT TO EXPECT AT YOUR APPOINTMENT Appointment on 06/18/2023 Component Date Value Ref Range Status Protein, Total 06/18/2023 6.9 6.3 - 8.0 g/dL Final Albumin 06/18/2023 4.1 3.9 - 4.9 g/dL Final Calcium, Total 06/18/2023 9.9 8.5 - 10.2 mg/dL Final Bilirubin, Total 06/18/2023 0.3 0.2 - 1.3 mg/dL Final Alkaline Phosphatase 06/18/2023 88 34 - 123 U/L Final AST 06/18/2023 27 13 - 35 U/L Final ALT 06/18/2023 26 7 - 38 U/L Final Glucose 06/18/2023 89 74 - 99 mg/dL Final BUN 06/18/2023 12 7 - 21 mg/dL Final Creatinine 06/18/2023 0.77 0.58 - 0.96 mg/dL Final Sodium 06/18/2023 139 136 - 144 mmol/L Final Potassium 06/18/2023 4.6 3.7 - 5.1 mmol/L Final Chloride 06/18/2023 108 (H) 97 - 105 mmol/L Final CO2 06/18/2023 19 (L) 22 - 30 mmol/L Final Anion Gap 06/18/2023 12 9 - 18 mmol/L Final Estimated Glomerular Filtration Ra* 06/18/2023 93 >=60 mL/min/1.73m Final Cholesterol, Total 06/18/2023 213 (H) <200 mg/dL Final Triglyceride 06/18/2023 134 <150 mg/dL Final HDL Cholesterol 06/18/2023 42 >39 mg/dL Final Non HDL Cholesterol 06/18/2023 171 (H) <130 mg/dL Final Fasting Time 06/18/2023 12 hrs Final VLDL Cholesterol 06/18/2023 27 <30 mg/dL Final TC:HDL Ratio 06/18/2023 5.07 <5.10 Final LDL Cholesterol 06/18/2023 144 (H) <100 mg/dL Final LDL:HDL Ratio 06/18/2023 3.43 (H) <2.54 Final TSH 06/18/2023 1.250 0.270 - 4.200 mIU/L Final Vitamin D 25 Hydroxy 06/18/2023 40.3 31.0 - 80.0 ng/mL Final Vitamin B12 06/18/2023 740 232 - 1,245 pg/mL Final Folate 06/18/2023 9.9 >4.7 ng/mL Final Hemoglobin A1C 06/18/2023 5.0 4.3 - 5.6 % Final Estimated Average Glucose 06/18/2023 97 mg/dL Final Admission on 06/08/2023, Discharged on 06/09/2023 Component Date Value Ref Range Status Glucose 06/08/2023 94 74 - 99 mg/dL Final BUN 06/08/2023 8 7 - 21 mg/dL Final Creatinine 06/08/2023 0.85 0.58 - 0.96 mg/dL Final Sodium 06/08/2023 140 136 - 144 mmol/L Final Potassium 06/08/2023 3.6 (L) 3.7 - 5.1 mmol/L Final Chloride 06/08/2023 107 (H) 97 - 105 mmol/L Final CO2 06/08/2023 25 22 - 30 mmol/L Final Anion Gap 06/08/2023 8 (L) 9 - 18 mmol/L Final Calcium, Total 06/08/2023 8.7 8.5 - 10.2 mg/dL Final Estimated Glomerular Filtration Ra* 06/08/2023 83 >=60 mL/min/1.73m Final WBC 06/08/2023 8.33 3.70 - 11.00 k/uL Final RBC 06/08/2023 4.42 3.90 - 5.20 m/uL Final Hemoglobin 06/08/2023 13.0 11.5 - 15.5 g/dL Final Hematocrit 06/08/2023 39.0 36.0 - 46.0 % Final MCV 06/08/2023 88.2 80.0 - 100.0 fL Final MCH 06/08/2023 29.4 26.0 - 34.0 pg Final MCHC 06/08/2023 33.3 30.5 - 36.0 g/dL Final RDW-CV 06/08/2023 12.8 11.5 - 15.0 % Final Platelet Count 06/08/2023 281 150 - 400 k/uL Final MPV 06/08/2023 9.2 9.0 - 12.7 fL Final Neutrophils % 06/08/2023 61.1 % Final Abs Neut 06/08/2023 5.08 1.45 - 7.50 k/uL Final Lymphocytes % 06/08/2023 28.8 % Final Abs Lymph 06/08/2023 2.40 1.00 - 4.00 k/uL Final Monocytes % 06/08/2023 8.0 % Final Abs [place] 06/08/2023 0.67 <0.87 k/uL Final Eosinophils % 06/08/2023 1.4 % Final Abs Eosin 06/08/2023 0.12 <0.46 k/uL Final Basophils % 06/08/2023 0.5 % Final Abs Baso 06/08/2023 0.04 <0.11 k/uL Final Immature Granulocytes % 06/08/2023 0.2 % Final Abs Immature Gran 06/08/2023 <0.03 <0.10 k/uL Final NRBC 06/08/2023 0.0 /100 WBC Final Absolute nRBC 06/08/2023 <0.01 <0.01 k/uL Final Diff Type 06/08/2023 Auto Final Magnesium 06/08/2023 1.8 1.7 - 2.3 mg/dL Final Albumin 06/09/2023 3.7 (L) 3.9 - 4.9 g/dL Final Calcium, Total 06/09/2023 9.3 8.5 - 10.2 mg/dL Final Phosphorus 06/09/2023 3.2 2.7 - 4.8 mg/dL Final Glucose 06/09/2023 97 74 - 99 mg/dL Final BUN 06/09/2023 6 (L) 7 - 21 mg/dL Final Creatinine 06/09/2023 0.86 0.58 - 0.96 mg/dL Final Sodium 06/09/2023 138 136 - 144 mmol/L Final Potassium 06/09/2023 3.7 3.7 - 5.1 mmol/L Final Chloride 06/09/2023 104 97 - 105 mmol/L Final CO2 06/09/2023 23 22 - 30 mmol/L Final Anion Gap 06/09/2023 11 9 - 18 mmol/L Final Estimated Glomerular Filtration Ra* 06/09/2023 81 >=60 mL/min/1.73m Final WBC 06/09/2023 9.41 3.70 - 11.00 k/uL Final RBC 06/09/2023 4.51 3.90 - 5.20 m/uL Final Hemoglobin 06/09/2023 13.4 11.5 - 15.5 g/dL Final Hematocrit 06/09/2023 39.0 36.0 - 46.0 % Final MCV 06/09/2023 86.5 80.0 - 100.0 fL Final MCH 06/09/2023 29.7 26.0 - 34.0 pg Final MCHC 06/09/2023 34.4 30.5 - 36.0 g/dL Final RDW-CV 06/09/2023 12.4 11.5 - 15.0 % Final Platelet Count 06/09/2023 244 150 - 400 k/uL Final MPV 06/09/2023 9.2 9.0 - 12.7 fL Final Neutrophils % 06/09/2023 73.5 % Final Abs Neut 06/09/2023 6.90 1.45 - 7.50 k/uL Final Lymphocytes % 06/09/2023 17.6 % Final Abs Lymph 06/09/2023 1.66 1.00 - 4.00 k/uL Final Monocytes % 06/09/2023 7.5 % Final Abs [place] 06/09/2023 0.71 <0.87 k/uL Final Eosinophils % 06/09/2023 0.6 % Final Abs Eosin 06/09/2023 0.06 <0.46 k/uL Final Basophils % 06/09/2023 0.4 % Final Abs Baso 06/09/2023 0.04 <0.11 k/uL Final Immature Granulocytes % 06/09/2023 0.4 % Final Abs Immature Gran 06/09/2023 0.04 <0.10 k/uL Final NRBC 06/09/2023 0.0 /100 WBC Final Absolute nRBC 06/09/2023 <0.01 <0.01 k/uL Final Diff Type 06/09/2023 Auto Final Case Report 06/09/2023 Final Value:Surgical Pathology Report Case: [id number] Authorizing Provider: Rui Orosco MD Collected: 06/09/2023 01:24 PM Ordering Location: [facility] Received: 06/11/2023 09:00 AM Pathologist: Magan Owens MD Specimen: COLON BIOPSY, r/o ischemia FINAL DIAGNOSIS 06/09/2023 Final Value:This result contains rich text formatting which cannot be displayed here. Diagnosis Comment 06/09/2023 Final Value:This result contains rich text formatting which cannot be displayed here. Gross Description 06/09/2023 Final Value:This result contains rich text formatting which cannot be displayed here. Performing Lab 06/09/2023 Final Value:This result contains rich text formatting which cannot be displayed here. Admission on 06/07/2023, Discharged on 06/08/2023 Component Date Value Ref Range Status Glucose 06/07/2023 100 (H) 74 - 99 mg/dL Final BUN 06/07/2023 12 7 - 21 mg/dL Final Creatinine 06/07/2023 0.82 0.58 - 0.96 mg/dL Final Sodium 06/07/2023 139 136 - 144 mmol/L Final Potassium 06/07/2023 4.1 3.7 - 5.1 mmol/L Final Chloride 06/07/2023 102 97 - 105 mmol/L Final CO2 06/07/2023 25 22 - 30 mmol/L Final Anion Gap 06/07/2023 12 9 - 18 mmol/L Final Calcium, Total 06/07/2023 9.5 8.5 - 10.2 mg/dL Final Estimated Glomerular Filtration Ra* 06/07/2023 86 >=60 mL/min/1.73m Final WBC 06/07/2023 11.24 (H) 3.70 - 11.00 k/uL Final RBC 06/07/2023 5.11 3.90 - 5.20 m/uL Final Hemoglobin 06/07/2023 14.9 11.5 - 15.5 g/dL Final Hematocrit 06/07/2023 44.9 36.0 - 46.0 % Final MCV 06/07/2023 87.9 80.0 - 100.0 fL Final MCH 06/07/2023 29.2 26.0 - 34.0 pg Final MCHC 06/07/2023 33.2 30.5 - 36.0 g/dL Final RDW-CV 06/07/2023 12.7 11.5 - 15.0 % Final Platelet Count 06/07/2023 319 150 - 400 k/uL Final MPV 06/07/2023 9.0 9.0 - 12.7 fL Final Neutrophils % 06/07/2023 83.9 % Final Abs Neut 06/07/2023 9.43 (H) 1.45 - 7.50 k/uL Final Lymphocytes % 06/07/2023 10.6 % Final Abs Lymph 06/07/2023 1.19 1.00 - 4.00 k/uL Final Monocytes % 06/07/2023 4.6 % Final Abs [place] 06/07/2023 0.52 <0.87 k/uL Final Eosinophils % 06/07/2023 0.4 % Final Abs Eosin 06/07/2023 0.05 <0.46 k/uL Final Basophils % 06/07/2023 0.4 % Final Abs Baso 06/07/2023 0.04 <0.11 k/uL Final Immature Granulocytes % 06/07/2023 0.1 % Final Abs Immature Gran 06/07/2023 <0.03 <0.10 k/uL Final Diff Type 06/07/2023 Auto Final Lactate 06/07/2023 1.1 0.5 - 2.2 mmol/L Final Impression: Frank Ventura is a 52 year old Female with Class I obesity (Body mass index is 32.3 kg/m .) who hasadult onset obesity with several periods of weight loss followed by weight gain . The causes of herobesity are multifactorial, biological, psychological and social and environmental. Specific factors include a genetic component related to a strong family of obesity, increased consumption of high calorie/process foods, suboptimal physical activity, and onset of menopause. She has no significant weight-related medical comorbidities which increase her cardiovascular mortality risk. There are additional metabolic obesity complications including dyslipidemia. Other medical conditions as above. Regarding her lifestyle, as above, she has a few behavioral contributors ; her physical activity isnon-existent. Overall, it is clear that her quality of life is moderately compromised by her weight. It is likelya combination of weight loss therapies will be needed. She appears motivated today. ASSESSMENT/PLAN: 1. Gastroesophageal reflux disease without esophagitis - ICD9: 530.81, ICD10: K21.9 (primary diagnosis) - hiatal hernia - daily omeprazole - sees GI Dr Friend 2. Hyperlipidemia, mixed - ICD9: 272.2, ICD10: E78.2 - benefits of weight loss discussed - Whole food balanced protein low-carb nutrition 3. IFG (impaired fasting glucose) - ICD9: 790.21, ICD10: R73.01 - INSULIN ASSAY BLOOD 4. Vitamin D insufficiency - ICD9: 268.9, ICD10: E55.9 5. Screening for diabetes mellitus - ICD9: V77.1, ICD10: Z13.1 - INSULIN ASSAY BLOOD 7. Class 1 obesity with serious comorbidity and body mass index (BMI) of 31.0 to 31.9 in adult, unspecified obesity type - ICD9: 278.00, V85.31, ICD10: E66.9, Z68.31 Plan: -- Based on the severity and resistance of the obesity/overweight with co- morbidities, I believe a combination of behavioral and pharmacological intervention is the best and most appropriate director long term care therapeutic option. -Weight loss of 14 pounds using Ozempic from March 2023 through July 2023. Prescribed throughweight watchers at cost of $1000 per month which is no longer affordable. -Interested in metabolic bariatric surgery which is most likely an exclusion from her medical insurance and she does not meet criteria. Given information on outside resources. - INSULIN ASSAY BLOOD - We discussed several strategies to track food intake and increase mindfulness around eating whilewill decrease calorie intake. She was counseled on the following: Eating primarily whole foods. Limit carbs, especially processed carbs. Do not drink your calories 30 grams of protein for breakfast decreases your hunger during the day by up to 40 % Premier Protein or generic 30 gm protein 1 gm sugar Walk for 15 minutes immediately a meal. -- Encouraged the patient to improve her physical activity. Although cardiovascular exercise is most beneficial for weight loss initially, we discussed healthy muscle from a combination of resistancetraining and cardiovascular exercise is the best director long term care plan. An overall goal of 150-200 minutesper week of exercise has been effective in weight loss and maintenance. -- Reviewed that monitoring weight daily and food intake can have a positive impact on overall weight loss and maintenance of weight loss. Activity tracking can be used to stay on target for exercisehowever should not be used to reward oneself She understands that there can be limitations of pharmacotherapy due to contraindications, side effects and cost. Patient was told to contact her insurance company to see what AOMs and supervised behavioral medical appointments are currently covered. Patient understands she will have more success when following a healthy lifestyle. We reviewed continued use of online tracking of daily weights, food journal and if desired physical activity. We reviewed that during management she is to report any concerning side effects of any pharmacotherapy she is placed on. She understands that she will need routine follow up in the office. Prior to any virtual visits in the future she will need to check her Blood pressure, weight, and pulse. -- follow-up visit in 4 weeks for management of above interventions. Jamee Hernandez CNP Advanced Education from the [employer] I spent a total of 74 minutes on the date of the service which included preparing to see the patient, [id number] patient care, completing clinical documentation, obtaining and/or reviewing separately obtained history, performing a medically appropriate examination, counseling and educating the pat ient/family/caregiver, and ordering medications, tests, or procedures. documented in this encounterAv[facility] Instructions* Patient Instructions* Jamee Hernandez APRN.CNP - 09/02/2023 2:41 PM EDT Weight Management: You have taken the initiative to become a healthier version of yourself and to decrease the risks that come with the diagnosis of obesity or being overweight. We are happy to help you along this journey but know this is a lifetime commitment to yourself. Losing just 3-10 % of your body weight can decrease your risks of many other serious diseases like diabetes, heart disease, osteoarthritis, hypertension, cancer and so many others. During this time you will have triumphs, setbacks and plateaus-your body will fight against you but we are here to give you the tools and the resources to continue to reach your goals. We recommend during this time that you track your weight daily or at least five times per week as well as tracking your nutrition. You may track your activity but do not use hitting your fitness goals as a reward system as this can derail your success. We recommend weekly physical activity of 150-200 min/week-although physical exercise can help with maintaining weight loss it adds only a little benefit for shelter weight loss success. However, exercise can have many other benefits including improving mental health and cardiovascular health. Do not feel overwhelmed- we will discuss this moreat your visits. Our time will be limited with each visit but we will try to touch on factors that are important to you and to your overall goals. We will try to set a goal at the end of each visit and then decide onwhat we want to accomplish with your upcoming visits. On your After Visit Summary (AVS), we will provide you with information that may be useful during this journey so please remember to read the information given. Check your AVS a few days after your appointment because we may have added more information specifically for you. Remember that if you are placed on medications, they are tools that can help you succeed but you must put in the work. Your nutrition will be the main factor. There are medications that work well forsome and not for others- so it may take time to find the right combination for your body's needs. Please remember that factors such as other health co-morbidities one might have, as well as insurance coverage, will play a factor in determining which medications you can take. Most of the newer medications that are all the craze ,injectables, may not be covered or will only be covered if you fail months of oral medications- so please be patient with the process. It would be beneficial for you to determine what your insurance covers as far as Anti-Obesity Medications (AOMs), Nutritional Counseling, behavioral intervention and weight loss surgery. Please call your health insurance prior to your first appointment and write down coverage for each of those therapies. Most importantly, remember that ultimately our goal is to help you get to a healthier weight which will decrease your overall health risks. We will work together as a team and try to reach your personalized goals as well. We appreciate that you have entrusted us with your health and know that we are committed to this process with you. Sincerely, Susan Flores MD, INGA, HEATHER & Jamee Hernandez, STEPHANI Obesity Obesity is a disease that affects nearly one-third of the adult [place] population (approximately 60 million). The number of overweight and obese Americans has continued to increase since 1960, a trend that is not slowing down. Today, 64.5 percent of adult Americans (about 127 million) are categorized as being overweight or obese. Each year, obesity causes at least 300,000 excess deaths in the [place] and healthcare costs of [place] adults with obesity amount to approximately $100 billion. (AOA) Obesity is a complex, multi-factorial chronic disease involving: Environmental (social and cultural) The tendency toward obesity is a result of our environment: lack of physical activity along with high-calorie, low-cost foods. Home, work, school, and even the community can inhibit a healthy lifestyle. Genetic (Hereditary plays a large role in determining how susceptible people are to overweight and obesity). Genes also influence how the body yoon calories for energy and stores fat. Physiologic, metabolic, behavioral (eating too many calories while not getting enough exercise) andpsychological components. It is the second leading cause of preventable in the [place] Behavioral changes brought on by economic development, modernization and urbanization have been linked to therise in global obesity. Calculating BMI Body Mass Index (BMI) is a measurement tool used to determine excess body weight. Overweight is defined as a BMI of 25 or more, obesity is 30 or more, and severe obesity is 40 or more. You can visit www.nhlbi.nih.gov to estimate your BMI. Obesity Related Health Conditions The morbidity and mortality risk from being overweight is proportional to its degree. Individuals with morbid obesity, therefore, have the highest risk for developing numerous illnesses that often reduce mobility and quality of life due to their excess weight. In particular, type 2 diabetes, gallbladder disease and osteoarthritis have been found to increase concurrently with higher BMI. Prematuredeath, a 20-year shorter life span, has also been found in individuals with morbid obesity. All of the systems that make the body function are affected by morbid obesity. Type 2 diabetes Gallbladder disease and gallstones Liver disease Osteoarthritis, a disease in which the joints deteriorate. This is possibly the result of excess weight on the joints. Gout, another disease affecting the joints Pulmonary (breathing) problems, including sleep apnea in which a person can stop breathing for a short time during sleep Reproductive problems in women, including menstrual irregularities and infertility Gastroesophageal reflux/heartburn Hypertension Heart Disease Depression Psychological disorders/social impairments Urinary Stress Incontinence Obesity is also linked to higher rates of certain types of cancer. Obese men are more likely than non-obese men to from cancer of the colon, rectum, or prostate. Obese women are more likely than non-obese women to from cancer of the gallbladder, breast, uterus, cervix, or ovaries [email or web address] [email or web address] Nutrition - Eat primarily whole foods. Limit carbs, especially processed carbs. - Do not drink your calories - 30 grams of protein for breakfast decreases your hunger during the day by up to 40 % Premier Protein or generic 30 gm protein 1 gm sugar or [employer] 30 gm protein shake or 5 eggs or 2-3 eggs with cheese and meat or meat - Walk for 15 minutes immediately a meal. documented in this encounterAvita [facility]03-08-2024 History of Present illness Narrative* Anthony Kan MD - 08/28/2023 11:15 AM EST FOLLOW UP VISIT - POST OP NAME: Frank [facility] NO.: [id number] DATE OF SERVICE: 08/28/2023 : 1970 REFERRING PHYSICIAN: Juan Carolina MD Frank is a patient I am following for multiple lower extremity subcutaneous lipomas and a right medial leg skin lesion. The patient is a 52 year old female. The patient has multiple lipomas on her right and left legs mostly the thigh regions along the lateral anterior and medial surfaces. She notes these areas are uncomfortable when she is riding her horse. They have been growing she has multiple wounds she wishes to have removed probably greater than 10 of each thigh/leg region. The patient did not wish to have this performed in the office under local anesthetic. I performed excision of multiple subcutaneous lipomas on both the right and left thigh regions along with a right medial thigh skin lesion excision on August 19, 2023. Pathology returned as: FINAL DIAGNOSIS A. Soft tissue, right leg, excision: - Angiolipoma. B. Soft tissue, left leg, excision: - Angiolipoma. C. Skin, right leg, excision: - Dermatofibroma (benign fibrous histiocytoma). The patient currently notes that the preoperative discomfort she had at the lipoma sites and specifically the skin dermatofibroma have improved. her appetite has been good. she denies fever, chills or abdominal pain. she does note some minimal incisional discomfort. VITALS: Last menstrual period 12/01/2016. On examination, all incisions are healing well with no signs of infection or significant bruising Assessment IMPRESSION: Status post excision of bilateral leg angiolipomas and right leg dermatofibroma PLAN: If the patient notes any problems or signs of wound infections, she should contact me immediately. Diagnoses: (D17.20) Lipoma of lower extremity, unspecified laterality (primary encounter diagnosis) (D17.9) Multiple lipomas Return to Clinic: The patient is instructed to follow-up with me as needed. Anthony Kan MD documented in this encounterAvita [facility]02-28-2024 NoteHNO ID: [id number] Author: MIGUEL BELLO APRN.COVERSTITCH MACHINE OPERATOR Service: Anesthesiology Author Type: Nurse Bank Advisor Type: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 with female genital organs 05/10/2007 06/18/2023 Dysmenorrhea 05/10/2007 06/18/2023 documented as of this encounter (statuses as of 07/23/2023) [facility]12-18-2023 History of Past illness Narrative* Problem Noted Date Diagnosed Date Resolved Date Abdominal pain 06/08/2023 06/18/2023 Colitis 06/08/2023 06/19/2023 Other and unspecified noninf ectious gastroenteritis and colitis(558.9) 02/04/201406/18 Fibroadenoma 11/05/2011 06/18/2023 Abnormal mammogram, unspecified 10/20/2011 06/18/2023 Gastric ulcer 04/25/2009 06/18/2023 Unspecified gastritis and ga stroduodenitis without mention of hemorrhage 04/25/2009 06/18/2023 Hematemesis 04/25/2009 05/09/2009 Acute gastritis without mention of hemorrhage 04/25/20 09 05/09/2009 Gastric ulcer, unspecified a s acute or chronic, without mention of hemorrhage, perforation, or obstruction 04/25/2009 05/09/2009 Urgency of urination 09/22/2008 023 Unspecified symptom associat ed with female genital organs 05/10/2007 06/18/2023 Dysmenorrhea 05/10/2007 06/18/2023 documented as of this encounter (statuses as of 07/23/2023) [facility]12-18-2023 History of Past illness Narrative* Problem Noted Date Diagnosed Date Resolved Date Abdominal pain 06/08/2023 06/18/2023 Colitis 06/08/2023 06/19/2023 Other and unspecified noninf ectious gastroenteritis and colitis(558.9) 02/04/201406/18 Fibroadenoma 11/05/2011 06/18/2023 Abnormal mammogram, unspecified 10/20/2011 06/18/2023 Gastric ulcer 04/25/2009 06/18/2023 Unspecified gastritis and ga stroduodenitis without mention of hemorrhage 04/25/2009 06/18/2023 Hematemesis 04/25/2009 05/09/2009 Acute gastritis without mention of hemorrhage 04/25/20 09 05/09/2009 Gastric ulcer, unspecified a s acute or chronic, without mention of hemorrhage, perforation, or obstruction 04/25/2009 05/09/2009 Urgency of urination 09/22/2008 023 Unspecified symptom associat ed with female genital organs 05/10/2007 06/18/2023 Dysmenorrhea 05/10/2007 06/18/2023 documented as of this encounter (statuses as of 07/24/2023) [facility]12-[facility] History of Past illness Narrative* Problem Noted Date Diagnosed Date Resolved Date Abdominal pain 06/08/2023 06/18/2023 Colitis 06/08/2023 06/19/2023 Other and unspecified noninf ectious gastroenteritis and colitis(558.9) 02/04/201406/18 Fibroadenoma 11/05/2011 06/18/2023 Abnormal mammogram, unspecified 10/20/2011 06/18/2023 Gastric ulcer 04/25/2009 06/18/2023 Unspecified gastritis and ga stroduodenitis without mention of hemorrhage 04/25/2009 06/18/2023 Hematemesis 04/25/2009 05/09/2009 Acute gastritis without mention of hemorrhage 04/25/20 09 05/09/2009 Gastric ulcer, unspecified a s acute or chronic, without mention of hemorrhage, perforation, or obstruction 04/25/2009 05/09/2009 Urgency of urination 09/22/2008 023 Unspecified symptom associat ed with female genital organs 05/10/2007 06/18/2023 Dysmenorrhea 05/10/2007 06/18/2023 documented as of this encounter (statuses as of 08/05/2023) [facility]12[facility] History of Past illness Narrative* Problem Noted Date Diagnosed Date Resolved Date Abdominal pain 06/08/2023 06/18/2023 Colitis 06/08/2023 06/19/2023 Other and unspecified noninf ectious gastroenteritis and colitis(558.9) 02/04/201406/18 Fibroadenoma 11/05/2011 06/18/2023 Abnormal mammogram, unspecified 10/20/2011 06/18/2023 Gastric ulcer 04/25/2009 06/18/2023 Unspecified gastritis and ga stroduodenitis without mention of hemorrhage 04/25/2009 06/18/2023 Hematemesis 04/25/2009 05/09/2009 Acute gastritis without mention of hemorrhage 04/25/20 09 05/09/2009 Gastric ulcer, unspecified a s acute or chronic, without mention of hemorrhage, perforation, or obstruction 04/25/2009 05/09/2009 Urgency of urination 09/22/2008 023 Unspecified symptom associat ed with female genital organs 05/10/2007 06/18/2023 Dysmenorrhea 05/10/2007 06/18/2023 documented as of this encounter (statuses as of 08/05/2023) [facility]12-[facility] History of Past illness Narrative* Problem Noted Date Diagnosed Date Resolved Date Abdominal pain 06/08/2023 06/18/2023 Colitis 06/08/2023 06/19/2023 Other and unspecified noninf ectious gastroenteritis and colitis(558.9) 02/04/201406/18 Fibroadenoma 11/05/2011 06/18/2023 Abnormal mammogram, unspecified 10/20/2011 06/18/2023 Gastric ulcer 04/25/2009 06/18/2023 Unspecified gastritis and ga stroduodenitis without mention of hemorrhage 04/25/2009 06/18/2023 Hematemesis 04/25/2009 05/09/2009 Acute gastritis without mention of hemorrhage 04/25/20 09 05/09/2009 Gastric ulcer, unspecified a s acute or chronic, without mention of hemorrhage, perforation, or obstruction 04/25/2009 05/09/2009 Urgency of urination 09/22/2008 023 Unspecified symptom associat ed with female genital organs 05/10/2007 06/18/2023 Dysmenorrhea 05/10/2007 06/18/2023 documented as of this encounter (statuses as of 08/28/2023) [facility]12-[facility] History of Past illness Narrative* Problem Noted Date Diagnosed Date Resolved Date Abdominal pain 06/08/2023 06/18/2023 Colitis 06/08/2023 06/19/2023 Other and unspecified noninf ectious gastroenteritis and colitis(558.9) 02/04/201406/18 Fibroadenoma 11/05/2011 06/18/2023 Abnormal mammogram, unspecified 10/20/2011 06/18/2023 Gastric ulcer 04/25/2009 06/18/2023 Unspecified gastritis and ga stroduodenitis without mention of hemorrhage 04/25/2009 06/18/2023 Hematemesis 04/25/2009 05/09/2009 Acute gastritis without mention of hemorrhage 04/25/20 09 05/09/2009 Gastric ulcer, unspecified a s acute or chronic, without mention of hemorrhage, perforation, or obstruction 04/25/2009 05/09/2009 Urgency of urination 09/22/2008 023 Unspecified symptom associat ed with female genital organs 05/10/2007 06/18/2023 Dysmenorrhea 05/10/2007 06/18/2023 documented as of this encounter (statuses as of 09/03/2023) [facility] Prosper Rodriguez [facility] Note Date/Time October 19, 2024 7:0 4am [facility] Medical Records Department [address] [place] [address] Emergency Department Summary 10/19/24 MR#: [id number] Acct: [id number] Name: FRANK VENTURA Rep #:[id number] : 1970 54 From: Prosper Rodriguez DO PCP: Dr. Juan Carolina MD Status:D EP ER Location: ED HPI History of Present Illness Chief Complaint: Chest Pain Informant: patient and spouse/S.O. Narrative Narrative: Patient is a 54-year-old female with past medical history of GERD and ischemic colitis as well as SVT. She states that has been multiple years since she has been in the abnormal heart rhythm. She states she has been under a great deal of stress recently and did not sleep well and this morning after getting up off the couch she felt her heart began to race. She states that she checked her pulse at home and she believes it was approximately 200 bpm. She states that this felt very similar nature to her past bouts of SVT. She states that there has been no recent sick symptoms and she denies any excessive stimulant use or illicit drug use. She states she has spontaneously converted out of SVT in the past and therefore waited roughly an hour to an hour and a half for symptoms to resolve. However there was no improvement and she had concern she may need cardioverted and therefore presents to the ER for evaluation [facility] Medical History Ischemic colitis Wears hearing aid Wears glasses Arthritis High cholesterol History of ulceration History of IBS Heartburn Gastric reflux Former smoker History of echocardiogram History of stress test Rheumatoid arthritis Acute hemorrhagic colitis GERD (gastroesophageal reflux disease) Reflux esophagitis Endometriosis Home Medications ?Medication ?Instructions ?Recorded ?Last Taken ?Type semaglutide (weight loss) 1.7 1.7 mg subcut Q7D 04/16/24 History mg/0.75 mL subcutaneous pen injector estradiol 2 mg tablet 2 mg PO QDAY 09/14/24 Unknow n History hyoscyamine sulfate 0.125 mg 0.125 mg PO BID-QID PRN a bdominal 09/14/24 Unknown Rx disintegrating tablet pain #120 tabs midodrine 5 mg tablet 10 mg (2 x 5 mg) PO TID #180 tabs 09/14/24 Unknown Rx omeprazole 40 mg capsule,delayed 40 mg PO DAILY #90 ca ps 09/14/24 Unknown Rx release progesterone micronized 100 mg 100 mg PO QAM 09/14/24 Unknown History capsule Allergy/AdvReac Type Severity Reaction Status Date / Time No Known Allergies Allergy Verified 09/14/24 10:31 Family History Father Heart disease Hypertension Hyperlipidemia Thyroid disorder Skin cancer Grandmother Breast cancer Mother Brain cancer Other Brain tumor Surgical History History of cardiac catheterization Hx of foot surgery H/O laparoscopy Hx of tonsillectomy History of appendectomy History of hysterectomy Social History Smoking Status: Former smoker ROS ROS ED Constitutional Constitutional ED: Denies chills or fever(s) Eyes Eyes: Denies change in vision ENT ENT ED: Denies sore throat Cardiovascular Cardiovascular: Reports chest pain, palpitations and racing heartbeat Respiratory/Chest Respiratory/Chest: Denies cough or dyspnea Gastrointestinal Gastrointestinal: Denies abdominal pain, diarrhea, nausea or vomiting Genitourinary Genitourinary ED: Denies dysuria Musculoskeletal Musculoskeletal: Denies back pain Integumentary Denies rash Neurologic Neurologic: Denies headache(s) Hematologic/Lymphatic Hematologic/Lymphatic: Denies easy bleeding or easy bruising EXAM Physical Exam Const Vital Signs: 10/19/24 06:25 10/19/24 06:30 Temperature 97.8 F Temperature Source Oral Pulse Rate 105 H Respiratory Rate 32 H Respiratory Effort Short of Breath Blood Pressure 114/69 Blood Pressure Mean 84 Pulse Ox 98 Oxygen Delivery Method Room Air Positive well nourished and well developed General Appearance ED: well developed; Negative for pallor HEENT HEENT Narrative: Mucous membranes are slightly dry and tacky No findings of infection noted in the posterior pharynx Eyes PERRL and EOMs intact bilaterally General Eye ED: Negative for pale conjunctiva or scleral icterus Neck supple and no JVD Neck Narrative: No nuchal rigidity or meningeal signs Chest Wall palpation of chest normal Resp normal respiratory effort and clear to auscultation bilaterally Resp Narrative: Breath sounds are slightly diminished throughout but overall clear to auscultation without signs of respiratory distress Cardio regular rate and regular rhythm Rate: other Other Details: Heart is regular rate and rhythm without murmurs rubsor gallops Radial and carotid pulses are equal and symmetric GI normal to inspection, nondistended, normoactive bowel sounds, non-tender, non-distended and no masses GI Narrative: No voluntary guarding or rigidity or pulsatile mass Auscultation: normoactive bowel sounds Palpation: soft Extremity normal to inspection Extremity Narrative: No asymmetric edema no pitting edema negative Homans' sign bilaterally Neuro oriented x3, CN's II-XII intact bilaterally and no sensory deficits noted Sensorium / Orientation: alert Motor Exam: strength 5/5 throughout Psych mental status grossly normal Skin no rashes or lesions noted General Skin Exam: Negative for jaundice or pallor MDM MDM MDM Narrative Medical decision making narrative: Patient arrived to the ER she is slightly tachycardic at approximately 105 bpm. With her past history of SVT and her reported heart rate of 200 bpm at home there is concern for paroxysmal SVT. An EKG was obtained which revealed technically sinus tachycardia at a rate of 102 but no true cardiac dysrhythmia or TX findings. The patient has a known history of SVT and has been under stress recently which could have precipitated an event. She denied any recent sick symptoms or bouts of nausea vomiting or diarrhea to suggest electrolyte abnormality or dehydration. I discussed with patient the safest option is to check for potential reversible cause of her palpitations and keep her on the satellite project site monitor to assess for abnormal heart rhythm. She states that she would like laboratory studies checked but as this is a recurrent issue for her and shehas not had any events which should indicate low blood volume or severe dehydration she does not want to wait in the ER for the labs to result. Therefore this time the patient is hemodynamically stable she is not in SVT there is no signs of neurologic deficit and she denies any chest discomfort therefore I will order laboratory studies to check for potential reversible causes but with patient requesting discharge I will comply especially as her vitals are stable and there is no acute cardiac dysrhythmia History & Record Review Discussion w/independent historian: Patient and Significant other Discharge Plan Triage Chief Complaint: Chest Pain ED Provider: Prosper Rodriguez Dx/Rx/DC Orders Clinical Impression: Palpitations, GERD (gastroesophageal reflux disease), History of supraventricular tachycardia, History of ischemic colitis Instructions: Supraventricular Tachycardia, ED Palpitations Prescriptions: No Action progesterone micronized 100 mg capsule 100 mg PO QAM Rx Instructions: off 7 days; repeat cycle estradiol 2 mg tablet 2 mg PO QDAY omeprazole 40 mg capsule,delayed release(DR/EC) 40 mg PO DAILY Qty: 90 3RF hyoscyamine sulfate 0.125 mg tablet,disintegrating 0.125 mg PO BID-QID PRN (Reason: abdominal pain) Qty: 120 3RF semaglutide (weight loss) 1.7 mg/0.75 mL pen injector 1.7 mg subcut Q7D midodrine 5 mg tablet 10 mg PO TID Qty: 180 0RF Patient Comments: hasn't taken the last few days Rx Instructions: do not give last dose of day after 6PM or within 4 hrs of bedtime Primary Care Provider: Juan Carolina Referrals: Juan Carolina MD [Primary Care Provider] - Activity Restrictions/Additional Instructions: Your history is consistent with a bout of supraventricular tachycardia which hasspontaneously resolved upon your arrival to the ER. Continue all of your home medications as directed by your doctor and return to the ER should you have any further concerns or worsening of symptoms Print Language: Arabic Disposition Disposition: Home, Self Care Discharge Date/Time: 10/19/24 07:04 What to do if you have Problems For any increased pain, shortness of breath, bleeding, nausea or vomiting, chestpain, or any unexpected problems, contact your Primary Care Provider. Call [facility] ([phone]) or report to the closest Emergency Room. Call 911 if necessary. 10/19/24 0704 <Electronically signed by Prosper Rodriguez DO> Cosigner Signature (if applicable): CC: Dr. Juan Carolina MD ~ Signed [facility] Work Phone: Evaluation note* Diagnosis Onset Date Resolution Status Acute hemorrhagic colitis [place] [facility] Work Phone: Evaluation note* Diagnosis Onset Date Resolution Status GERD (gastroesophageal reflux disease) acute Ischemic colitis acute Chronic constipation chronic [facility] Work Phone: Evaluation note* Diagnosis Gastroesophageal reflux disease without esophagitis- Primary Esophageal reflux documented in this encounter [facility] note* Diagnosis Lipoma of lower extremity, unspecified laterality- Primary Lipoma of lower extremity, unspecified laterality documented in this encounter [facility] note* Diagnosis Lipoma of lower extremity, unspecified laterality- Primary Multiple lipomas Lipoma of unspecified site documented in this encounter [facility] note* Diagnosis Gastroesophageal reflux disease without esophagitis- Primary Esophageal reflux Hyperlipidemia, mixed Mixed hyperlipidemia IFG (impaired fasting glucose) Impaired fasting glucose Vitamin D insufficiency Unspecified vitamin D deficiency Screening for diabetes mellitus Class 1 obesity with serious comorbidity and body mass index (BMI) of 31.0 to 31.9 in adult, unspecified obesity type [facility]* Diagnosis Obesity, Class I, BMI 30-34.9- Primary Obesity, unspecified Hyperlipidemia, mixed Mixed hyperlipidemia documented in this encounter [facility] note* Diagnosis Gastroesophageal reflux disease without esophagitis- Primary Esophageal reflux Hyperlipidemia, mixed Mixed hyperlipidemia IFG (impaired fasting glucose) Impaired fasting glucose Vitamin D insufficiency Unspecified vitamin D deficiency Poor sleep Class 1 obesity with serious comorbidity and body mass index (BMI) of 31.0 to 31.9 in adult, unspecified obesity type [facility]* Diagnosis Class 1 obesity with serious comorbidity and body mass index (BMI) of 31.0 to 31.9 in adult, unspecified obesity type- Primary IFG (impaired fasting glucose) Impaired fasting glucose documented in this encounter [facility] noteNo assessment information availableWHolzer Hospital Work Phone: Evaluation note* Diagnosis Encounter for gynecological examination (general) (routine) without abnormal findings- Primary Encounter for screening mammogram for breast cancer Vaginal odor Unspecified symptom associated with female genital organs Menopausal symptoms Symptomatic menopausal or female climacteric states documented in this encounter [facility] note* Diagnosis Glaucoma suspect of both eyes- Primary Preglaucoma, unspecified Optic nerve cupping of both eyes documented in this encounter [facility] note* Diagnosis History of PSVT (paroxysmal supraventricular tachycardia)- Primary Personal history of other diseases of circulatory system Abnormal laboratory test result Other abnormal clinical finding Abnormal head movements Abnormal involuntary movements Chronic low blood pressure Chronic hypotension Ischemic colitis (HCC) Unspecified vascular insufficiency of intestine [facility]* Diagnosis Abnormal head movements Abnormal involuntary movements documented in this encounter [facility] note* Diagnosis Abnormal head movements Abnormal involuntary movements [facility] Additional Instructions Your history is consistent with a bout of supraventricular tachycardia which has spontaneously resolved upon your arrival to the ER. Continue all of your home medications as directed by your doctor and return to the ER should you have any further concerns or worsening of symptomsWHolzer Hospital Work Phone: Hospital Discharge instructionsAmbulatory Orders* Electrophysiology Location: None [facility] Work Phone: Resfof for referral (narrative)* Diagnostic Procedure Only (Routine) - New Request Specialty Diagnoses / Procedures Referred By Annalisa sommer Referred To Contact [facility] Diagnoses Encounter for gynecological examination (general) (routine) without abnormal findings Encounter for screening mammogram for breast cancer Procedures JOVANNA SCREENING W SEAN SCREENING DIGITAL BREAST TOMOSYNTHESIS BI SCREENING MAMMOGRAPHY BI 2-VIEW BREAST INC Renetta Saavedra APRN.AGRICULTURAL LENDER [address] [place] [address] [facility] [address] [place] [address] Referral ID Status Reason Start Date Expiration Date Visits Requested Visits Authorized [id number] New Request Auto-Generat ed Referral 07/21/2024 08/20/2025 1 1 [facility] for referral (narrative)No reason for referral information availableWHolzer Hospital Work Phone: Reason for visit Narrative* MRI/CT (Routine) - Closed Specialty Diagnoses / Procedures Referred By Annalisa sommer Referred To Contact [facility] Diagnoses Abnormal head movements Procedures MRI BRAIN WO IVCON MRI BRAIN BRAIN STEM W/O CONTRAST MATERIAL Scarlet Ha MD [address] [place] [address] Phone: tel: fax: [place] [id number] Referral ID Status Reason Start Date Expiration Date V isits Requested Visits Authorized [id number] Closed Auto-Generate d Referral 10/27/2024 06/21/2025 1 1 [facility] Summary Purpose Family History Relationship Condition Age at Onset Recorded Date/T mary ann Not Specified Neoplasm of brain Unknown Cardiac disease Unknown Relationship Condition Age at Onset Recorded Date/T mary ann Not Specified Neoplasm of brain Unknown father Cardiac disease Unknown Hypertension Unknown Hyperlipidemia Unknown Disorder of thyroid Unknown Malignant neoplasm of skin Unknown grandmother Malignant neoplasm of breast Unknown mother Malignant neoplasm of brain Unknown Breast Cancer Status:Active Comments:Materna l Grandmother. Cancer Status:Active Comments:Mother. brain cancer Cerebrovascular Accident Status:Active Comment s:Negative Family History Of. Hypertension Status:Active Comments:Negativ e Family History Of. Hypothyroidism Status:Active Comments:Father. Breast Cancer Status:Active Comments:Materna l Grandmother. Cancer Status:Active Comments:Mother. brain cancer Cerebrovascular Accident Status:Active Comment s:Negative Family History Of. Hypertension Status:Active Comments:Negativ e Family History Of. Hypothyroidism Status:Active Comments:Father. Breast Cancer Status:Active Comments:Materna l Grandmother. Cancer Status:Active Comments:Mother. brain cancer Cerebrovascular Accident Status:Active Comment s:Negative Family History Of. Hypertension Status:Active Comments:Negativ e Family History Of. Hypothyroidism Status:Active Comments:Father. Breast Cancer Status:Active Comments:Materna l Grandmother. Cancer Status:Active Comments:Mother. brain cancer Cerebrovascular Accident Status:Active Comment s:Negative Family History Of. Hypertension Status:Active Comments:Negativ e Family History Of. Hypothyroidism Status:Active Comments:Father. Breast Cancer Status:Active Comments:Materna l Grandmother. Cancer Status:Active Comments:Mother. brain cancer Cerebrovascular Accident Status:Active Comment s:Negative Family History Of. Hypertension Status:Active Comments:Negativ e Family History Of. Hypothyroidism Status:Active Comments:Father. Relationship Condition Age at Onset Recorded Date/T mary ann Not Specified Neoplasm of brain Unknown father Cardiac disease Unknown Hypertension Unknown Hyperlipidemia Unknown Disorder of thyroid Unknown Malignant neoplasm of skin Unknown grandmother Malignant neoplasm of breast Unknown Obesity Unknown mother Malignant neoplasm of brain Unknown Cerebrovascular accident (CVA) Unknown brother Obesity Unknown Cardiac disease Unknown Coronary artery disease Unknown Advance Directives Advance Directive Response Recorded Date/ Time Living Will Yes December 26, 2021 2 :40am Power of Leather Belt Loop Cutter Yes December 26, 2021 2:40am Name of Medical Power of Leather Belt Loop Cutter December 26, 2021 2:40am Advance Directive Response Recorded Date/ Time Name of Medical Power of Leather Belt Loop Cutter Chris schwartz sujatha December 26, 2021 6:05am Living Will Yes December 26, 2021 6 :05am Power of Leather Belt Loop Cutter Yes December 26, 2021 6:05am Documents on File Type Date Recorded Patient Recruiting Intern Expl anation Advance Directive(s) 12/10/2016 11:24 AM Documents on File Type Date Recorded Patient Recruiting Intern Expl anation Advance Directive(s) 12/10/2016 11:24 AM Advance Directive Response Recorded Date/ Time Living Will Yes April 16 2:42pm Power of Leather Belt Loop Cutter Yes April 16, 2022 2:42pm Advance Directive Response Recorded Date/ Time Do you have a Healthcare Power of Leather Belt Loop Cutter? Yes October 19, 2024 6:32am Chief Complaint and Reason for Visit Chief Complaint ACUTE HEMORRHAGIC CO LITIS Reason for Visit Acute hemorrhagic co litis Chief Complaint ACUTE HEMORRHAGIC CO LITIS ACUTE HEMORRHAGIC COLITIS ACUTE HEMORRHAGIC COLITIS H FU EORDER Reason for Visit GERD (gastroesophage al reflux disease) Ischemic colitis Chronic constipation Chief Complaint gi bleed Chief Complaint Admit Date 4 M FU September 14, 2024 10: 24am chest pain October 19, 2024 6:2 4am Reason for Visit Admit Date GERD (gastroesophageal reflux disease) M 2024 10:24am Chief Complaint Admit Date 4 M FU September 14, 2024 10: 24am chest pain October 19, 2024 6:2 4am PSVT December 08, 2024 8:25 am Reason for Referral Specialty Diagnoses / Procedures Referred By Annalisa sommer Referred To Contact Diagnoses Gastroesophageal reflux disease without esophagitis Juan Carolina MD [address] [place] [address] Referral ID Status Reason Start Date Expiration Date Visits Re quested Visits Authorized [id number] Closed 1 1 Specialty Diagnoses / Procedures Referred By Annalisa sommer Referred To Contact Diagnoses Gastroesophageal reflux disease without esophagitis Hyperlipidemia, mixed IFG (impaired fasting glucose) Class 1 obesity with serious comorbidity and body mass index (BMI) of 31.0 to 31.9 in adult, unspecified obesity type Jamee Hernandez APRN.STEPHANI [address] [address] Referral ID Status Reason Start Date Expiration Date Visits Re quested Visits Authorized [id number] Closed 1 1 Additional Source Comments INFORMATION SOURCE (unrecogn ized section and content) DATE CREATED AUTHOR 12/16/2017 [facility] DATE CREATED AUTHOR AUTHOR'S ELISA ATBRENDEN 12/16/2017 [facility] DATE CREATED AUTHOR AUTHOR'S ORGANIZ ATION 01/22/2022 [facility] DATE CREATED AUTHOR AUTHOR'S ORGANIZ ATION 06/28/2023 [facility] DATE CREATED AUTHOR AUTHOR'S ORGANIZ ATION 09/03/2023 [facility] DATE CREATED AUTHOR AUTHOR'S ORGANIZ ATION 11/05/[address] [facility] DATE CREATED AUTHOR AUTHOR'S ORGANIZ ATION 01/02/2025 [facility] Goals (unrecognized section and content) Goals may be documented in a n alternate sectionGoals may be documented in an alternate sectionGoals may be documented in an alternate sectionGoals may be documented in an alternate section Source Comments (unrecognize d section and content) In the event this informatio n is protected by the Federal Confidentiality of Alcohol and Drug Abuse Patient Records regulations: The Federal rules restrict any use of the information to criminally investigate or prosecute any alcohol or drug abuse patient.[facility] the event this information is protected by the Federal Confidentiality of Alcohol and Drug Abuse Patient Records regulations: The Federal rules restrict any use of the information to criminally investigate or prosecute any alcohol or drug abuse patient.[facility] Hospital[facility] the event this information is protected by the Federal Confidentiality of Alcohol and Drug Abuse Patient Records regulations: The Federal rules restrict any use of the information to criminally investigate or prosecute any alcohol or drug abuse patient.[facility] Hospital[facility] the event this information is protected by the Federal Confidentiality of Alcohol and Drug Abuse Patient Records regulations: The Federal rules restrict any use of the information to criminally investigate or prosecute any alcohol or drug abuse patient.[facility] Hospital[facility] the event this information is protected by the Federal Confidentiality of Alcohol and Drug Abuse Patient Records regulations: The Federal rules restrict any use of the information to criminally investigate or prosecute any alcohol or drug abuse patient.[facility] Hospital[facility] the event this information is protected by the Federal Confidentiality of Alcohol and Drug Abuse Patient Records regulations: The Federal rules restrict any use of the information to criminally investigate or prosecute any alcohol or drug abuse patient.[facility] Hospital[facility] the event this information is protected by the Federal Confidentiality of Alcohol and Drug Abuse Patient Records regulations: The Federal rules restrict any use of the information to criminally investigate or prosecute any alcohol or drug abuse patient.[facility] Hospital[facility] the event this information is protected by the Federal Confidentiality of Alcohol and Drug Abuse Patient Records regulations: The Federal rules restrict any use of the information to criminally investigate or prosecute any alcohol or drug abuse patient.[facility] Hospital[facility] the event this information is protected by the Federal Confidentiality of Alcohol and Drug Abuse Patient Records regulations: The Federal rules restrict any use of the information to criminally investigate or prosecute any alcohol or drug abuse patient.[facility] Hospital[facility] the event this information is protected by the Federal Confidentiality of Alcohol and Drug Abuse Patient Records regulations: The Federal rules restrict any use of the information to criminally investigate or prosecute any alcohol or drug abuse patient.[facility] Hospital[facility] the event this information is protected by the Federal Confidentiality of Alcohol and Drug Abuse Patient Records regulations: The Federal rules restrict any use of the information to criminally investigate or prosecute any alcohol or drug abuse patient.[facility] Hospital[facility] the event this information is protected by the Federal Confidentiality of Alcohol and Drug Abuse Patient Records regulations: The Federal rules restrict any use of the information to criminally investigate or prosecute any alcohol or drug abuse patient.[facility] HospitalIn the event this information is protected by the Federal Confidentiality of Alcohol and Drug Abuse Patient Records regulations: The Federal rules restrict any use of the information to criminally investigate or prosecute any alcohol or drug abuse patient.[facility] HospitalIn the event this information is protected by the Federal Confidentiality of Alcohol and Drug Abuse Patient Records regulations: The Federal rules restrict any use of the information to criminally investigate or prosecute any alcohol or drug abuse patient.[facility] HospitalIn the event this information is protected by the Federal Confidentiality of Alcohol and Drug Abuse Patient Records regulations: The Federal rules restrict any use of the information to criminally investigate or prosecute any alcohol or drug abuse patient.[facility] HospitalIn the event this information is protected by the Federal Confidentiality of Alcohol and Drug Abuse Patient Records regulations: The Federal rules restrict any use of the information to criminally investigate or prosecute any alcohol or drug abuse patient.[facility] HospitalIn the event this information is protected by the Federal Confidentiality of Alcohol and Drug Abuse Patient Records regulations: The Federal rules restrict any use of the information to criminally investigate or prosecute any alcohol or drug abuse patient.[facility] HospitalIn the event this information is protected by the Federal Confidentiality of Alcohol and Drug Abuse Patient Records regulations: The Federal rules restrict any use of the information to criminally investigate or prosecute any alcohol or drug abuse patient.[facility] Reason for Visit (unrecogniz ed section and content) Reason Comments Orders Reason Onset Date Comments Refill Request 07/23/2023 Reason Comments Follow Up US follow up Reason Comments Post Op Follow Up Bilateral lower extr emity excision. Specialty Diagnoses / Procedures Referred By Annalisa sommer Referred To Contact General Surgery / GENERAL SURGERY Diagnoses Lipoma post op exc lipoma leon leg rg puente 08/19 Procedures OFFICE/OUTPATIENT ESTABLISHED MOD MDM 30 MIN POST OP DDI Juan Carolina MD [address] [place] [address] Anthony Kan MD [address] [address] Referral ID Status Reason Start Date Expiration Date Visits Re quested Visits Authorized [id number] Closed 08/28/2023 06/21/2024 1 1 Reason Onset Date Comments Weight Management 09/02/2023 Reason Comments F/U 3 Month Reason Comments Weight Problem Reason Comments 08/19/2023 EXC LIPOMA LEG PUENTE Reason Comments Well Woman Reason Comments Glaucoma Evaluation Reason Comments ER F/U Tremor Reason Comments New Patient Evaluation New Patient Head bobbing happens at night, happening x6 months. Specialty Diagnoses / Procedures Referred By Annalisa sommer Referred To Contact Neurology Diagnoses Abnormal head movements Procedures CONSULT TO NEUROLOGY OFFICE/OUTPATIENT NEW HIGH MDM 60 MINUTES Juan Carolina MD [address] [place] [address] Phone: tel: fax: Referral ID Status Reason Start Date Expiration Date V isits Requested Visits Authorized [id number] Closed PCP Requested Referral 10/20/2024 10/20/2025 1 1 Care Teams (unrecognized sec tion and content) Harness Tier Relationship Specialty Start Date End Date Juan Carolina MD [address] [place] [address] PCP - General Internal Medicine 06/18/23 Harness Tier Relationship Specialty Start Date End Date Juan Carolina MD [address] [facility] [place] [address] PCP - General Internal Medicine 06/18/23 Harness Tier Relationship Specialty Start Date End Date Juan Carolina MD [address] [facility] [place] [address] PCP - General Internal Medicine 06/18/23 Harness Tier Relationship Specialty Start Date End Date Juan Carolina MD [address] [facility] [place] [address] PCP - General Internal Medicine 06/18/23 Harness Tier Relationship Specialty Start Date End Date Juan Carolina MD [address] [facility] [place] [address] PCP - General Internal Medicine 06/18/23 Harness Tier Relationship Specialty Start Date End Date Juan Carolina MD [address] [facility] [address] PCP - General Internal Medicine 06/18/23 Harness Tier Relationship Specialty Start Date End Date Juan Carolina MD [address] [facility] [address] PCP - General Internal Medicine 06/18/23 Harness Tier Relationship Specialty Start Date End Date Juan Carolina MD [address] [place] [place] [address] PCP - General Internal Medicine 06/18/23 Harness Tier Relationship Specialty Start Date End Date Juan Carolina MD [address] [facility] [place] [address] PCP - General Internal Medicine 06/18/23 Harness Tier Relationship Specialty Start Date End Date Juan Carolina MD [address] [place], [place] [address] PCP - General Internal Medicine 06/18/23 Team Status: Active Member Role Status Dates Dr. Zacarias Lieberman MD Family Provider Active No Primary Care Physician Primary Care Provider Active Team Status: Inactive Member Role Status Dates No Primary Care Physician Primary Care Provider Active Ed Physician Provider Emergency Provider Active Harness Tier Relationship Specialty Start Date End Date Juan Carolina MD [address] [place], [place] [address] PCP - General Internal Medicine 06/18/23 Frieda Crystal, CUSTOMER SERVICE ADVISOR.AGRICULTURAL LENDER [address] [place], [place] [address] Glass Unloading Equipment Tender Internal Medicine 05/30/24 Team Status: Active Member Role Status Dates Dr. Juan Carolina MD Primary Care Provider Active Team Status: Inactive Member Role Status Dates Dr. Juan Carolina MD Primary Care Provider Active Start: September 14, 2024 End: September 14, 2024 Dr. Juan Carolina MD Referring Provider Active Start: September 14, 2024 End: September 14, 2024 WILLY Booth Attending Provider Active Start: September 14, 2024 End: September 14, 2024 Team Status: Inactive Member Role Status Dates Dr. Juan Carolina MD Primary Care Provider Active Start: October 19, 2024 End: October 19, 2024 Dr. Prosper Rodriguez DO Emergency Provider Active Start: October 19, 2024 End: October 19, 2024 Harness Tier Relationship Specialty Start Date End Date Juan Carolina MD [address] [place], [place] [address] PCP - General Internal Medicine 06/18/23 Frieda Crystal, CUSTOMER SERVICE ADVISOR.AGRICULTURAL LENDER [address] [place] [address] Glass Unloading Equipment Tender Internal Medicine 05/30/24 [place] [address] [place] [address] Referring Optometry 10/12/24 Harness Tier Relationship Specialty Start Date End Date Juan Carolina MD [address] [place] [address] PCP - General Internal Medicine 06/18/23 Frieda Crystal, CUSTOMER SERVICE ADVISOR.AGRICULTURAL LENDER [address] [place] [address] Glass Unloading Equipment Tender Internal Medicine 05/30/24 [place] [address] [place] [address] Referring Optometry 10/12/24 Harness Tier Relationship Specialty Start Date End Date Juan Carolina MD [address] [place] [address] PCP - General Internal Medicine 06/18/23 Frieda Crystal, CUSTOMER SERVICE ADVISOR.AGRICULTURAL LENDER [address] [place] [address] Glass Unloading Equipment Tender Internal Medicine 05/30/24 [place] [address] [place] [address] Referring Optometry 10/12/24 Harness Tier Relationship Specialty Start Date End Date Juan Carolina MD [address] [place] [address] PCP - General Internal Medicine 06/18/23 Frieda Crystal, CUSTOMER SERVICE ADVISOR.AGRICULTURAL LENDER [address] [place] [address] Glass Unloading Equipment Tender Internal Medicine 05/30/24 [place] [address] [place] [address] Referring Optometry 10/12/24 Harness Tier Relationship Specialty Start Date End Date Juan Carolina MD [address] [place] [address] PCP - General Internal Medicine 06/18/23 Frieda Crystal, CUSTOMER SERVICE ADVISOR.AGRICULTURAL LENDER [address] [place] [address] Glass Unloading Equipment Tender Internal Medicine 05/30/24 [place] [address] [place] [address] Referring Optometry 10/12/24 Team Status: Inactive Member Role Status Dates Dr. Juan Carolina MD Primary Care Provider Active Start: October 19, 2024 End: October 19, 2024 Dr. Prosper Rodriguez DO Attending Provider Active Start: October 19, 2024 End: October 19, 2024 Dr. Prosper Rodriguez DO Emergency Provider Active Start: October 19, 2024 End: October 19, 2024 Team Status: Inactive Member Role Status Dates Dr. Juan Carolina MD Primary Care Provider Active Start: December 08, 2024 End: December 08, 2024 Dr. Juan Carolina MD Referring Provider Active Start: December 08, 2024 End: December 08, 2024 Dr. Nsarin Sanderson MD Attending Provider Active Start: December 08, 2024 End: December 08, 2024 Harness Tier Relationship Specialty Start Date End Date Juan Carolina MD [address] [place], [place] [address] PCP - General Internal Medicine 06/18/23 Frieda Crystal, CUSTOMER SERVICE ADVISOR.AGRICULTURAL LENDER [address] [place], [place] [address] Glass Unloading Equipment Tender Internal Medicine 05/30/24 [place] [address] [place] [address] Referring Optometry 10/12/24 FOR RECORDS PERTAINING TO PATIENTS WHO ARE OR HAVE BEEN ENROLLED IN A CHEMICAL DEPENDENCY/SUBSTANCEABUSE PROGRAM, SOME INFORMATION MAY BE OMITTED. This clinical summary was aggregated from multiple sources. Caution should be exercised in using it in the provision of clinical care. This summary normalizes information from multiple sources, and as a consequence, information in this document may materially change the coding, format and clinical context of patient data. In addition, data may be omitted in some cases. CLINICAL DECISIONS SHOULD BE BASED ON THE PRIMARY CLINICAL RECORDS. [employer] provides no warranty or guarantee of the accuracy or completeness of information in this document.
--- NOTE | 2025-01-16 14:55 | STRESSREP_ITS ---
Stress Test Report Date: 01/12/2025 Procedure: Exercise tolerance test/imaging study Indications: Chest pain/SVT Consent: Per the patient Procedure: The patient exercised on a Lon protocol for 8 minutes achieving a peak heart rate of 160 bpm (96% predicted maximal heart rate) with a peak blood pressure 146/60 mmHg and a peak MET capacity of 10.1 METs. The baseline ECG demonstrated sinus rhythm with nonspecific ST changes. The peak exercise ECG showed downsloping changes in inferolateral leads suggestive of ischemia however baseline changes reduced specificity. There were no cardiac dysrhythmias pretest, during exercise, or recovery. The functional capacity was considered good for age. There was no complaint of chest discomfort during exercise or recovery. The examination was discontinued secondary to target heart rate being achieved. The patient was injected with 11.3 mCi of technetium 99m Cardiolite and subsequently rest SPECT Cardiolite nuclear imaging was obtained in the horizontal long, vertical long, and short axis views. Post-exercise, the patient was injected with 32.8 mCi of technetium 99m Cardiolite and subsequently stress SPECT Cardiolite nuclear imaging was obtained in the horizontal long, vertical long, and short axis views. A gated Cardiolite study at peak stress was obtained. Rest and stress SPECT Cardiolite nuclear imaging status post realignment, and normalization, demonstrates the appearance of relative uniform tracer uptake and myocardial perfusion appearing within normal limits. There is end systolic thickening and brightening. The gated Cardiolite study demonstrates myocardial thickening and inward wall motion. The reported LVEF is 95%. Impression: 1. Technically adequate (percent predicted maximal heart rate greater than 85%) exercise tolerance test. 2. Peak exercise ECG with ST changes suggestive of ischemia however baseline abnormality reduces specificity. No chest pain reported 3. There were no cardiac dysrhythmias pretest, during exercise, or recovery 4. Rest and stress SPECT Cardiolite nuclear imaging demonstrate relative uniform tracer uptake and myocardial perfusion appearing within normal limits. 5. The gated Cardiolite study reports an LVEF of 95%. This note was generated with [employer] software. It may contain incorrect words, spelling, and punctuation that were not noted in checking the note before signing.
== END | disposition home or self-care (01) ==
PROVIDERS: PCP Internal Medicine; Referring Provider Internal Medicine Cardiovascular Disease; Visit Provider Internal Medicine Cardiovascular Disease
DX: I47.10 Supraventricular tachycardia, unspecified (principal); E78.2 Mixed hyperlipidemia; R07.9 Chest pain, unspecified
CPT/HCPCS: 78452; 93017; 93306; A9500; A4216

== ENCOUNTER 2025-01-24 00:52 | Emergency (ER) | payer OTHER, SELFPAY ==
[2025-01-24 00:53] VITALS: TEMP 36.6; BMI 29.5
[2025-01-24 00:56] VITALS: BP 103/63; PULSE 98; RESP 18; O2SAT 100
--- NOTE | 2025-01-24 01:00 | CT_ITS ---
PROCEDURE: ABDOMEN/PELVIS WITHOUT CONT 01/24/2025 REASON FOR EXAM: LEFT FLANK PAIN TECHNIQUE: ABDOMEN/PELVIS WITHOUT CONT Noncontrast technique limits evaluation of the abdominal and pelvic viscera. Coronal and Sagittal reconstruction series were provided. One or more dose reduction techniques were used (e.g., Automated exposure control, adjustment of the mA and/or kV according to patient size, use of iterative reconstruction technique). RADIATION DOSE SUMMARY: CTDlvol: 13 mGy DLP: 634 mGycm COMPARISON: 05/29/2024 FINDINGS: Under aerated lung bases. Normal heart size. Unremarkable liver, gallbladder, pancreas, spleen, adrenal glands, right kidney. There is left kidney swelling and perinephric stranding. Mild hydronephrosis, but no ureteral stone. Unremarkable bladder. Status post hysterectomy. No retroperitoneal or pelvic adenopathy. No free air. Small hiatal hernia. Nonobstructed bowel. Status post appendectomy. Multiple diverticula. No acute large bowel findings. Lumbar spine degeneration. Sacral dural ectasia. CT/Abdomen/Pelvis without Cont IMPRESSION: Findings suggest a recently passed left-sided kidney stone with residual UVJ sp asm/edema and mild hydronephrosis. Reading Location: [place] [address]
[2025-01-24] MEDS: 0.9% Normal Saline (1000mL) 1,000 ML 999 ML IV (01:11)
[2025-01-24] MEDS: Ketorolac 30 MG/ML Syringe IV (01:12)
[2025-01-24 01:20] LABS: Hematocrit 43.0 % (37-47); Hemoglobin 14.5 g/dL (12.0-15.0); Immature Granulocytes Count 0.030 X10^3/uL (0.0-0.0); Mean Corp Hgb Conc 33.7 g/dL (32-36); Mean Corpuscular Volume 87.0 fL (81-99); Mean Platelet Vol. 9.1 fl (6.2-12.0); NRBC Flagged by Analyzer 0 % (0-5); Platelet Count 311 K/mm3 (150-450); RBC Distribution Width CV 12.7 % (11.6-14.6); RBC Distribution Width SD 40.3 fl (35.1-43.9); Red Blood Count 4.94 M/mm3 (4.2-5.4); White Blood Count 8.0 K/mm3 (4.4-11.0)
[2025-01-24] MEDS: DiphenhydrAMINE 50 MG/ML Syringe IV (01:22)
--- NOTE | 2025-01-24 01:25 | EX.ED.DYSGE1 ---
HPI History of Present Illness Chief Complaint: Flank Pain Informant: patient and spouse/S.O. Narrative Narrative: Patient is 54-year-old female with past medical history of of anxiety paroxysmal SVT hyperlipidemia and kidney stone. She states that she was feeling perfectly normal today and did her normal daily routine. She states she lied down to go to sleep and developed pain in the left side that was sharp and stabbing in nature. She states there was no excessive physical activity or recent trauma prior to the abdominal pain beginning. She also denies any recent diarrhea or dysuria. She states the pain is similar nature to her kidney stone from May 2024 and with concern for this once again presents for evaluation [facility] Medical History Urgency of urination Tubular adenoma of colon Sacral defect with anterior meningocele PTSD (post-traumatic stress disorder) Peripheral sensory neuropathy Obesity, Class I, BMI 30-34.9 Multiple lipomas Lumbosacral spondylolysis Hyperlipidemia, mixed Gastric ulcer Fibroadenoma Dyssynergic bladder Dysmenorrhea Attention deficit disorder of adult Anxiety Acute gastritis without mention of hemorrhage Abnormal glandular Papanicolaou smear of cervix PSVT (paroxysmal supraventricular tachycardia) SVT (supraventricular tachycardia) Chronic low blood pressure Ischemic colitis Wears hearing aid Wears glasses Arthritis High cholesterol History of ulceration History of IBS Heartburn Gastric reflux Former smoker History of echocardiogram History of stress test Rheumatoid arthritis Acute hemorrhagic colitis GERD (gastroesophageal reflux disease) Reflux esophagitis Endometriosis Home Medications ?Medication ?Instructions ?Recorded ?Last Taken ?Type semaglutide (weight loss) 1.7 1.7 mg subcut Q7D 04/18/24 04/16/24 History mg/0.75 mL subcutaneous pen injector estradiol 2 mg tablet 2 mg PO QDAY 09/14/24 Unknown History hyoscyamine sulfate 0.125 mg 0.125 mg PO BID-QID PRN abdominal 09/14/24 Unknown Rx disintegrating tablet pain #120 tabs midodrine 5 mg tablet 10 mg (2 x 5 mg) PO TID #180 tabs 09/14/24 Unknown Rx omeprazole 40 mg capsule,delayed 40 mg PO DAILY #90 caps 09/14/24 Unknown Rx release progesterone micronized 100 mg 100 mg PO QAM 09/14/24 Unknown History capsule estradiol 0.01% (0.1 mg/gram) vaginal 11/22/24 Unknown History vaginal cream ibuprofen 600 mg tablet 600 mg PO 4X/DAY PRN pain #40 01/24/25 Unknown Rx TABLETS oxycodone-acetaminophen 5 mg-325 1 tab PO Q6H PRN pain 3 days #12 01/24/25 Unknown Rx mg tablet (Percocet) tabs promethazine 25 mg tablet 25 mg PO TID PRN nausea and 01/24/25 Unknown Rx vomiting #21 tabs Allergy/AdvReac Type Severity Reaction Status Date / Time No Known Allergies Allergy Verified 01/24/25 00:58 Family History Father Heart disease Hypertension Hyperlipidemia Thyroid disorder Skin cancer Grandmother Breast cancer Obesity Mother Brain cancer CVA (cerebral vascular accident) Obesity Brother Obesity Heart disease CAD (coronary artery disease) Uncle No problems noted. Other Brain tumor Surgical History History of cardiac catheterization Hx of foot surgery H/O laparoscopy Hx of tonsillectomy History of appendectomy History of hysterectomy Social History Smoking Status: Former smoker quit date: 06/22/09 Electronic Cigarette Use: not used alcohol intake: current alcohol intake frequency: 0-2 drinks per day Alcohol type: wine substance use type: does not use ROS ROS ED Constitutional Constitutional ED: Denies chills or fever(s) ENT ENT ED: Denies sore throat Cardiovascular Cardiovascular: Denies chest pain Respiratory/Chest Respiratory/Chest: Denies cough or dyspnea Gastrointestinal Gastrointestinal: Reports abdominal pain and nausea; Denies diarrhea or vomiting Genitourinary Genitourinary ED: Denies dysuria, hematuria or urinary frequency Musculoskeletal Musculoskeletal: Reports back pain Integumentary Denies rash Neurologic Neurologic: Denies headache(s) Hematologic/Lymphatic Hematologic/Lymphatic: Denies easy bleeding or easy bruising EXAM Physical Exam Const Vital Signs: 01/24/25 00:53 01/24/25 00:56 01/24/25 02:53 Temperature 97.8 F Temperature Source Oral Pulse Rate 98 96 Respiratory Rate 18 16 Blood Pressure 103/63 104/66 Blood Pressure Mean 76 78 Pulse Ox 100 94 Oxygen Delivery Method Room Air Room Air Positive well nourished and well developed General Appearance ED: well developed; Negative for pallor HEENT HEENT Narrative: Normocephalic atraumatic Eyes PERRL and EOMs intact bilaterally General Eye ED: Negative for scleral icterus Neck supple Resp normal respiratory effort and clear to auscultation bilaterally Cardio regular rate and regular rhythm Rate: other Other Details: Radial and carotid pulses are equal and symmetric GI non-distended and no masses GI Narrative: Abdomen is soft and nondistended with normal active bowel sounds. There is pain on palpation along the left-sided abdomen greatest in the left mid to lower region. No voluntary guarding or rigidity noted. No pulsatile mass Auscultation: normoactive bowel sounds Palpation: soft Back/Spine Back/Spine Narrative: Positive left CVA pain present Extremity normal to inspection Neuro oriented x3, CN's II-XII intact bilaterally and no sensory deficits noted Sensorium / Orientation: alert Motor Exam: strength 5/5 throughout Psych Mood & Affect: anxious Skin no rashes or lesions noted and no wounds Skin Narrative: No overlying soft tissue changes to suggest trauma or infection General Skin Exam: Negative for jaundice or pallor MDM MDM MDM Narrative Medical decision making narrative: Patient presented to the ER with stable vitals. She reported sudden onset left-sided abdominal discomfort with nausea. She states there was no preceding symptoms such as fevers or chills diarrhea or dysuria. Differential diagnosis is for UTI versus pyelonephritis versus kidney stone versus diverticulitis. As her symptoms are most consistent with kidney stone basic labs and a CT scan without contrast were ordered. Labs revealed no signs of acute kidney injury or urosepsis. After receiving IV fluids Toradol morphine Benadryl and Compazine she had resolution of her pain. Noncontrast CT scan did not reveal any obvious stone but showed changes along the left ureter consistent with edema and spasm most likely from a recently passed stone. The patient did give a urine sample and while doing this there is noted to be a small rocklike structure in the cup which would correlate with the blood in her urine left-sided flank pain and passed stone. The urine did show +2 bacteria but no white blood cells indicating this is most likely normal luisito and therefore I will send the urine for culture but do not feel the need for antibiotics. On reevaluation the patient is now resting comfortably and able to sleep. As she does not have acute kidney injury or urosepsis or intractable pain there is no need for further intervention or emergent urology consultation and she is otherwise safe for discharge. History & Record Review Discussion w/independent historian: Patient and Significant other Lab Data Attestation: I reviewed the patient's lab results. Labs: Laboratory Results - last 24 hr 01/24/25 01/24/25 01:13 02:39 WBC 8.0 RBC 4.94 Hgb 14.5 Hct 43.0 MCV 87.0 MCH 29.4 MCHC 33.7 RDW Std Deviation 40.3 RDW Coeff of Ramos 12.7 Plt Count 311 MPV 9.1 Immature Gran % (Auto) 0.400 Neut % (Auto) 70.8 H Lymph % (Auto) 21.4 Kimball % (Auto) 5.5 Eos % (Auto) 1.0 Baso % (Auto) 0.9 Absolute Neuts (auto) 5.6 Absolute Lymphs (auto) 1.70 Nucleated RBC % 0 Sodium 141 Potassium 4.6 Chloride 107 Carbon Dioxide 20.1 L Anion Gap 15 BUN 15 Creatinine 1.00 Estim Creat Clear Calc 61.18 Est GFR (MDRD) Non-Af 67 BUN/Creatinine Ratio 15.1 Glucose 115 H Calcium 9.4 Urine Color Yellow Urine Clarity Clear Urine pH 5.0 Ur Specific [place] 1.025 Urine Protein 30 H Urine Glucose (UA) Normal Urine Ketones 5 H Urine Occult Blood 150 H Urine Nitrite Negative Urine Bilirubin Negative Urine Urobilinogen 1 H Ur Leukocyte Esterase Negative Urine RBC 10-25 SEEN Urine WBC 0-5 SEEN Ur Squamous Epith Cells 0-5 SEEN Urine Bacteria 2+ Urine Mucus 1+ Radiography Diagnostic Testing: Clinical Impression(s) from Imaging Studies Abdomen/Pelvis CT 01/24/25 01:00 IMPRESSION: Findings suggest a recently passed left-sided kidney stone with residual UVJ spasm/edema and mild hydronephrosis. Reading Location: [place] [address] Discharge Plan Triage Chief Complaint: Flank Pain ED Provider: Prosper Rodriguez Dx/Rx/DC Orders Clinical Impression: Kidney stone on left side, Renal colic, Anxiety, Hyperlipidemia, mixed Instructions: ED Kidney Stone, Passed Prescriptions: New oxycodone-acetaminophen [Percocet] 5-325 mg tablet 1 tab PO Q6H PRN (Reason: pain) 3 Days Qty: 12 0RF promethazine 25 mg tablet 25 mg PO TID PRN (Reason: nausea and vomiting) Qty: 21 0RF ibuprofen 600 mg tablet 600 mg PO 4X/DAY PRN (Reason: pain) Qty: 40 0RF No Action progesterone micronized 100 mg capsule 100 mg PO QAM Rx Instructions: off 7 days; repeat cycle estradiol 2 mg tablet 2 mg PO QDAY omeprazole 40 mg capsule,delayed release(DR/EC) 40 mg PO DAILY Qty: 90 3RF hyoscyamine sulfate 0.125 mg tablet,disintegrating 0.125 mg PO BID-QID PRN (Reason: abdominal pain) Qty: 120 3RF estradiol 0.01 % (0.1 mg/gram) cream vaginal semaglutide (weight loss) 1.7 mg/0.75 mL pen injector 1.7 mg subcut Q7D midodrine 5 mg tablet 10 mg PO TID Qty: 180 0RF Patient Comments: hasn't taken the last few days Rx Instructions: do not give last dose of day after 6PM or within 4 hrs of bedtime Primary Care Provider: Juan Carolina Referrals: Bridget Langford MD [Med Staff - Active Staff] - Juan Carolina MD [Primary Care Provider] - Activity Restrictions/Additional Instructions: Your CT scan and exam in the ER shows that you recently passed a kidney stone. There is still trauma to the ureter from passing the stone and so pain may persist for another 1 to 2 days. Take the prescribed medication as directed to help control symptoms. As you have had a stone in May and now in January you can follow-up with urology to discuss any further treatment options. Return to the ER should you have any further concerns Print Language: Croatian Disposition Disposition: Home, Self Care
--- OUTSIDE RECORDS SUMMARY | 2025-01-24 01:25 | XMS RPT_ITS | CCD ---
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 [address] Hematocrit (Bld) [Volume fraction] 41.8 % Normal 37-47 [facility] Comment on above: Performed By: #### L 500.2500, L100.0100 #### [facility] [address] [place], [address] Hemoglobin (Bld) [Mass/Vol] 13.9 g/dL Normal 12.0-15.0 [facility] Comment on above: Performed By: #### L 500.2500, L100.0100 #### [facility] [address] [place], [address] IG% 0.400 Normal 0.0-0.9 [facility] Comment on above: Result Comment: IG% - Immature Granulocytes (promyelocytes, myelocytes and metamyelocytes) > 1% indicates that a LEFT SHIFT is Present. Performed By: #### L 500.2500, L100.0100 #### [facility] [address] [place], [address] Lymphocytes/100 WBC (Bld) 34.2 % Normal 19-41 [facility] Comment on above: Performed By: #### L 500.2500, L100.0100 #### [facility] [address] [place], [address] MCH (RBC) [Entitic mass] 28.7 pg Normal 27.0-32.0 [facility] Comment on above: Performed By: #### L 500.2500, L100.0100 #### [facility] [address] [place], [address] MCHC (RBC) [Mass/Vol] 33.3 g/dL Normal 32-36 [facility] Comment on above: Performed By: #### L 500.2500, L100.0100 #### [facility] [address] [place], [address] MCV (RBC) [Entitic vol] 86.4 fL Normal 81-99 [facility] Comment on above: Performed By: #### L 500.2500, L100.0100 #### [facility] [address] [place], [address] Monocytes/100 WBC (Bld) 7.9 % Normal 0-10 [facility] Comment on above: Performed By: #### L 500.2500, L100.0100 #### [facility] [address] [place], [address] Neutrophils/100 WBC (Bld) 54.7 % Normal 47-70 [facility] Comment on above: Performed By: #### L 500.2500, L100.0100 #### [facility] [address] [place], [address] Nucleated RBC (Bld) [#/Vol] 0 10*3/uL Normal 0-5 [facility] Comment on above: Performed By: #### L 500.2500, L100.0100 #### [facility] [address] [place], [address] Platelet mean volume (Bld) [Entitic vol] 9.1 fL Normal 6.2-12.0 [facility] Comment on above: Performed By: #### L 500.2500, L100.0100 #### [facility] [address] [place], [address] Platelets (Bld) [#/Vol] 327 10*3/uL Normal 150-450 [facility] Comment on above: Performed By: #### L 500.2500, L100.0100 #### [facility] [address] [place], [address] RBC (Bld) [#/Vol] 4.84 10*6/uL Normal 4.2-5.4 [facility] Comment on above: Performed By: #### L 500.2500, L100.0100 #### [facility] [address] [place], [address] RDW SD 41.3 fl Normal 35.1-43.9 [facility] Comment on above: Performed By: #### L 500.2500, L100.0100 #### [facility] [address] [place], [address] WBC (Bld) [#/Vol] 5.3 10*3/uL Normal 4.4-11.0 [facility] Comment on above: Performed By: #### L 500.2500, L100.0100 #### [facility] [address] [place], [address] CRPon 05-05-2024 C-REACTIVE PROT < 2.90 Normal 0.0-3.0 [facility] Comment on above: Result Comment: C-Re active Protein (CRP) provides useful information for the diagnosis, therapy and monitoring of inflammatory processes and associated diseases. For the evaluation of Relative Risk for Cardiovascular Disease, a High Sensitivity CRP (HSCRP) should be ordered. Performed By: #### L 500.2500, L100.0100 #### [facility] [address] [place], [address] Gastroenterology Visit Repor ton 05-05-2024 Gastroenterology Visit Report [facility] [address] [place] [address] OFFICE VISIT Date of Service: 05/05/24 MR#: [id number] Acct: [id number] Name: FRANK VENTURA Rep #: [id number] : 1970 Provider: WILLY paige Age/Sex: 53/F [place] 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 Normal [facility] AT III Func / Immunolon 11-0 AT3 AG, IMMUNOL 76 Normal 72-124 [facility] Comment on above: Order Comment: Test( s) 152284-Epnopefzveub Antigenwas developed and its performance characteristicsdetermined by [facility]. It has not been cleared or approvedby the Food and Drug Administration. Performed By: #### L 500.2500, L100.0100 #### [facility] [place], [address] AT3 FUNCTIONAL 102 Normal 75-135 [facility] Comment on above: Order Comment: Test( s) 856016-Rqkzhseyxcel Antigenwas developed and its performance characteristicsdetermined by [facility]. It has not been cleared or approvedby the Food and Drug Administration. Result Comment: Dire ct Xa inhibitor anticoagulants such as rivaroxaban, apixaban and edoxaban will lead to spuriously elevated antithrombin activity levels possibly masking a deficiency. Performed By: #### L 500.2500, L100.0100 #### [facility] [address] [place], [place], [address] Aldolaseon 04-26-2024 ALDOLASE 2.8 U/L Low 3.3-10.3 [facility] Comment on above: Order Comment: Test( s) 018853-Gujoaorvysy; 644040-Ztkhx Activity, Plasma was developed and its performance characteristics determined by [facility]. It has not been cleared or approved by the Food and Drug Administration. Result Comment: Perf ormed at: [address] [id number] Electrostatic Powder Coating Technician: Viviane Martinez MD, Phone: [phone] Performed at: [address] [id number] Electrostatic Powder Coating Technician: Jeferson Reynolds PhD, Phone: [phone] Performed By: #### L 4600.0100, L3300.1050, L3100.7925 #### [facility] [address] [place], [place], [address] Anticardiolipin IgG, IgMon 1 06-26-2023 ANTICARDIO IgG < 9 Normal 0-14 [facility] Comment on above: Order Comment: Test( s) 557526-Yrraekgdzuta Antigenwas developed and its performance characteristicsdetermined by [facility]. It has not been cleared or approvedby the Food and Drug Administration. Result Comment: Nega tive: <15 Indeterminate: 15 - 20 Low-Med Positive: >20 - 80 High Positive: >80 Performed By: #### L 500.2500, L100.0100 #### [facility] [address] [place], [place], [address] Anticardio.IgM < 9 Normal 0-12 [facility] Comment on above: Order Comment: Test( s) 883530-Oqppjsnugvfa Antigenwas developed and its performance characteristicsdetermined by [facility]. It has not been cleared or approvedby the Food and Drug Administration. Result Comment: Nega tive: <13 Indeterminate: 13 - 20 Low-Med Positive: >20 - 80 High Positive: >80 Performed By: #### L 500.2500, L100.0100 #### [facility] [address] [place], [address] Beta-2 Glycoprot IgG, A, 04-26-2024 B2 GLYCO I IGA <9 Normal 0-25 [facility] Comment on above: Order Comment: Test( s) 850334-Qpwrmfbyyqdv Antigenwas developed and its performance characteristicsdetermined by [facility] [employer]. It has not been cleared or approvedby [...] Thromb Haem 2006;4:295-306. Performed By: #### L 500.2500, L100.0100 #### [facility] [address] [place], [address] B2 GLYCO I IGG <9 Normal 0-20 [facility] Comment on above: Order Comment: Test( s) 595680-Uwlpxapisjoe Antigenwas developed and its performance characteristicsdetermined by [facility]. It has not been cleared or approvedby [...] Thromb Haem 2006;4:295-306. Performed By: #### L 500.2500, L100.0100 #### [facility] [address] [place], [address] B2 GLYCO I IGM <9 Normal 0-32 [facility] Comment on above: Order Comment: Test( s) 451603-Cttbmhdgchuv Antigenwas developed and its performance characteristicsdetermined by [facility]. It has not been cleared or approvedby [...] Thromb Haem 2006;4:295-306. Performed By: #### L 500.2500, L100.0100 #### [facility] [address] [place], [place], [address] CCP IgG Antibodieson 024 CCP IgG Ab. 6 units Normal 0-19 [facility] Comment on above: Order Comment: Test( s) 996470-Jhvujagrkyt; 863569-Gjbwq Activity, Plasmawas developed and its performance characteristicsdetermined by [facility]. It has not been cleared or approvedby the Food and Drug Administration. Result Comment: Nega tive <20 Weak positive 20 - 39 Moderate positive 40 - 59 Strong positive >59 Performed By: #### L 4600.0100, L3300.1050, L3100.7000 ####[facility] [address] [place], [place], [address] Fact V Leiden Mutationon FACTOR V LEIDEN Comment Normal . [facility] Comment on above: Order Comment: Test( s) 360965-Oyruvfbxrpew Antigenwas developed and its performance characteristicsdetermined by [facility]. It has not been cleared or approvedby the Food and Drug Administration. Result Comment: Resu lt: c.1601G>A (p.Rkp872Wst) - Not Detected This result is not associated with an increased risk for venous thromboembolism. See Additional Clinical Information and Comments. Additional Clinical Information: Venous thromboembolism is a multifactorial disease influenced by genetic, environmental, and circumstantial risk factors. The c.1601G>A (p. Xpb668Flz) variant in the F5 gene, commonly referred [...] c.*97G>A variant and Factor V Leiden (PMID: 23740318). Additional risk factors include but are not [...] health care providers to discuss results at [phone] ([phone]). Test Details: Variant Analyzed: c.1601G>A (p. Gub047Szn), referred to as Factor V Leiden Methods/Limitations: [...] developed and its performance characteristics determined by [facility]. It has not been cleared or approved by the Food and Drug Administration. References: Jacquie S, Hyacinth AK, David R, Shelly WW, Duc JH; [employer] Professional Practice and Guidelines Committee. Addendum: [employer] consensus statement on factor V Leiden mutation testing. [employer] Med. 2020Aug 24. doi: 10.1038/u35638-779-78549-f. PMID: 41661700. Stephanie MARTIN. Factor V Leiden Thrombophilia. 1998November 02 (Updated 2017Jun 25). In: Indra MP, Cheko HH, David RA, et al., editors. Alvarez(Edvin) (Internet). [place] ([place]): [facility]; 4065-1352. Available from: https://www.ncbi.nlm.nih.gov/books/CYS9398/ Felton S, Hyacinth AK, Booker X, Corby B, Candelario EB, Eva P, Sorin CS; [employer] Laboratory Internet Sales Director Committee. Venous thromboembolism laboratory testing (factor V Leiden and factor II c.*97G>A), 2018 update: a technical standard of the [employer] and [employer] (ACMG). [employer] Med. 2018 May;20(12):5496-9927. doi: 10.1038/y81105-013-1248-o. Epub 2017Mar 26. PMID: 66855471. Performed By: #### L 500.2500, L100.0100 #### [facility] [address] [place], [place], [address] Reviewed By Comment Normal . [facility] Comment on above: Order Comment: Test( s) 810527-Qwzytwmccwjt Antigenwas developed and its performance characteristicsdetermined by [facility]. It has not been cleared or approvedby the Food and Drug Administration. Result Comment: Tech nical Component performed at [facility] RTP Professional Component performed by: [employer] Casper Gagnon, Ph.D., [facility] Director, [place] [address] Performed By: #### L 500.2500, L100.0100 #### [facility] [address] [place], [place], [address] Factor II, DNA Analysison FACTOR II, DNA Comment Normal . [facility] Comment on above: Order Comment: Test( s) 553704-Hfmnbywqbodn Antigenwas developed and its performance characteristicsdetermined by [facility]. It has not been cleared or approvedby [...] the F2 gene and a c.1601G>A (p. Gsf769Muj) variant in the F5 gene (commonly referred to as Factor V Leiden) have an approximately 20- fold increased risk for venous thromboembolism. Risks are likely to be even higher in more complex genotype combinations involving the F2 c.*97G>A variant and Factor V Leiden (PMID: 57933261). Additional risk factors include but are not [...] health care providers to discuss results at [phone] ([phone]). Test Details: Variant analyzed: c.*97G>A, previously referred to as U73791C Methods/Limitations: DNA analysis of the F2 gene [...] developed and its performance characteristics determined by [facility]. It has not been cleared or approved by the Food and Drug Administration. References: Jacquie Springer, Hyacinth PORRAS, David R, Shelly WW, Duc JH; [employer] Professional Practice and Guidelines Committee. Addendum: [employer] consensus statement on factor V Leiden mutation testing. [employer]ella Med. 2020Aug 24. doi: 10.1038/s54267-537-58649-a. PMID: 07272984. Stephanie MARTIN. Prothrombin Thrombophilia. 2005Jan 13 [Updated 2020Jul 26]. In: Indra MP, Cheko HH, David RA, et al., editors. Alvarez(R) [Internet]. [place] ([place]): [facility]; 8795-9849. Available from: https://www.ncbi.nlm.nih.gov/books/UOY0616/ Felton S, Hyacinth PORRAS, Booker X, Corby B, Candelario EB, Eva P, Sorin CS; [employer] Laboratory Internet Sales Director Committee. Venous thromboembolism laboratory testing (factor V Leiden and factor II c.*97G>A), 2018 update: a technical standard of the [employer] and [employer] (ACMG). Arabella Med. 2018 May;20(12):7862-9892. doi: 10.1038/g96912-226-1571-t. Epub 2017Mar 26. PMID: 75550885. Performed By: #### L 500.2500, L100.0100 #### [facility] [address] [place], [address] Protein C Defic. Profileon 1 06-26-2023 PROTEIN C Ag 127 Normal 60-150 [facility] Comment on above: Order Comment: Test( s) 527795-Pytyaylxvtji Antigenwas developed and its performance characteristicsdetermined by [facility]. It has not been cleared or approvedby the Food and Drug Administration. Performed By: #### L 500.2500, L100.0100 #### [facility] [address] [place], [address] Protein C, Functionalon PROTEIN C,FUNC 154 Normal 73-180 [facility] Comment on above: Order Comment: Test( s) 745379-Hpznbhzxjpge Antigenwas developed and its performance characteristicsdetermined by [facility]. It has not been cleared or approvedby the Food and Drug Administration. Performed By: #### L 500.2500, L100.0100 #### [facility] [address] [place], [address] Renin/Aldosterone Activityon 04-26-2024 ALD/RENIN RATIO <1.7 Normal 0.0-30.0 [facility] Comment on above: Order Comment: Test( s) 467680-Burpxmgptse; 478372-Kidmk Activity, Plasmawas developed and its performance characteristicsdetermined by [facility]. It has not been cleared or approvedby the Food and Drug Administration. Result Comment: Unit s: ng/dL per ng/mL/hr Performed By: #### L 4600.0100, L3300.1050, L3100.7000 ####[facility] [address] [facility] [place], [address] ALDOSTERONE,S < 1.0 Normal 0.0-30.0 [facility] Comment on above: Order Comment: Test( s) 764960-Dhvviqozrte; 337646-Osslv Activity, Plasmawas developed and its performance characteristicsdetermined by [facility]. It has not been cleared or approvedby the Food and Drug Administration. Performed By: #### L 4600.0100, L3300.1050, L3100.7000 ####[facility] [address] [place], [address] RENIN, PLASMA 0.578 ng/mL/hr Normal 0.167-5.38 0 [facility] Comment on above: Order Comment: Test( s) 916199-Epsywsamtqc; 371746-Swupa Activity, Plasmawas developed and its performance characteristicsdetermined by [facility]. It has not been cleared or approvedby the Food and Drug Administration. Performed By: #### L 4600.0100, L3300.1050, L3100.7000 ####[facility] [address] [place], [address] Basic Metabolic Profile (BMP )on 04-23-2024 BUN Normal 7-18 [facility] Comment on above: Result Comment: Canc elled via OM: Order cancelled - Patient discharged Performed By: #### L 503.6005 #### [facility] [address] [place], [address] BUN/CRE Normal 10-20 [facility] Comment on above: Result Comment: Canc elled via OM: Order cancelled - Patient discharged Performed By: #### L 503.6005 #### [facility] [address] [place], [address] CA,Total Normal 8.5-10.1 [facility] Comment on above: Result Comment: Canc elled via OM: Order cancelled - Patient discharged Performed By: #### L 503.6005 #### [facility] [address] [place], [address] CL Normal 98-107 [facility] Comment on above: Result Comment: Canc elled via OM: Order cancelled - Patient discharged Performed By: #### L 503.6005 #### [facility] [address] [place], [address] CO2 Normal 21.0-32.0 [facility] Comment on above: Result Comment: Canc elled via OM: Order cancelled - Patient discharged Performed By: #### L 503.6005 #### [facility] [address] [place], [address] CREAT,SERUM Normal 0.55-1.02 [facility] Comment on above: Result Comment: Canc elled via OM: Order cancelled - Patient discharged Performed By: #### L 503.6005 #### [facility] [address] [place], [address] EST GFR Normal >60 [facility] Comment on above: Result Comment: Canc elled via OM: Order cancelled - Patient discharged Performed By: #### L 503.6005 #### [facility] [address] [place], [address] EST GFR - AA Normal >60 [facility] Comment on above: Result Comment: Canc elled via OM: Order cancelled - Patient discharged Performed By: #### L 503.6005 #### [facility] [address] [place], [address] GAP Normal 5-15 [facility] Comment on above: Result Comment: Canc elled via OM: Order cancelled - Patient discharged Performed By: #### L 503.6005 #### [facility] [address] [place], [address] GLU Normal 74-106 [facility] Comment on above: Result Comment: Canc elled via OM: Order cancelled - Patient discharged Performed By: #### L 503.6005 #### [facility] [address] [place], [address] Potassium Normal 3.5-5.1 [facility] Comment on above: Result Comment: Canc elled via OM: Order cancelled - Patient discharged Performed By: #### L 503.6005 #### [facility] [address] [place], [address] Basic Metabolic Profile (BMP) Normal 136-145 [facility] Comment on above: Result Comment: Canc elled via OM: Order cancelled - Patient discharged Performed By: #### L 503.6005 #### [facility] [address] [place], [address] CBC W/Diff, Automatedon 11-0 Absolute Neut Normal 2.0-7.7 [facility] Comment on above: Result Comment: Canc elled via OM: Order cancelled - Patient discharged Performed By: #### L 503.6005 #### [facility] [address] [place], [address] HCT Normal 37-47 [facility] Comment on above: Result Comment: Canc elled via OM: Order cancelled - Patient discharged Performed By: #### L 503.6005 #### [facility] [address] [place], [address] HGB Normal 12.0-15.0 [facility] Comment on above: Result Comment: Canc elled via OM: Order cancelled - Patient discharged Performed By: #### L 503.6005 #### [facility] [address] [place], [address] MCH Normal 27.0-32.0 [facility] Comment on above: Result Comment: Canc elled via OM: Order cancelled - Patient discharged Performed By: #### L 503.6005 #### [facility] [address] [place], [address] MCHC Normal 32-36 [facility] Comment on above: Result Comment: Canc elled via OM: Order cancelled - Patient discharged Performed By: #### L 503.6005 #### [facility] [address] [place], [address] MCV Normal 81-99 [facility] Comment on above: Result Comment: Canc elled via OM: Order cancelled - Patient discharged Performed By: #### L 503.6005 #### [facility] [address] [place], [address] NEUT% Normal 47-70 [facility] Comment on above: Result Comment: Canc elled via OM: Order cancelled - Patient discharged Performed By: #### L 503.6005 #### [facility] [address] [place], [address] PLT Normal 150-450 [facility] Comment on above: Result Comment: Canc elled via OM: Order cancelled - Patient discharged Performed By: #### L 503.6005 #### [facility] [address] [place], [address] RBC Normal 4.2-5.4 [facility] Comment on above: Result Comment: Canc elled via OM: Order cancelled - Patient discharged Performed By: #### L 503.6005 #### [facility] [address] [place], [address] RDW CV Normal 11.6-14.6 [facility] Comment on above: Result Comment: Canc elled via OM: Order cancelled - Patient discharged Performed By: #### L 503.6005 #### [facility] [address] [place], [address] RDW SD Normal 35.1-43.9 [facility] Comment on above: Result Comment: Canc elled via OM: Order cancelled - Patient discharged Performed By: #### L 503.6005 #### [facility] [address] [place], [address] WBC Normal 4.4-11.0 [facility] Comment on above: Result Comment: Canc elled via OM: Order cancelled - Patient discharged Performed By: #### L 503.6005 #### [facility] [address] [place], [address] Basic Metabolic Profile (BMP )on 04-22-2024 BUN Normal 7-18 [facility] Comment on above: Result Comment: Canc elled via OM: Order cancelled - Patient discharged Performed By: #### L 503.6005 #### [facility] [address] [place], [address] BUN/CRE Normal 10-20 [facility] Comment on above: Result Comment: Canc elled via OM: Order cancelled - Patient discharged Performed By: #### L 503.6005 #### [facility] [address] [place], [address] CA,Total Normal 8.5-10.1 [facility] Comment on above: Result Comment: Canc elled via OM: Order cancelled - Patient discharged Performed By: #### L 503.6005 #### [facility] [address] [place], [address] CL Normal 98-107 [facility] Comment on above: Result Comment: Canc elled via OM: Order cancelled - Patient discharged Performed By: #### L 503.6005 #### [facility] [address] [place], [address] CO2 Normal 21.0-32.0 [facility] Comment on above: Result Comment: Canc elled via OM: Order cancelled - Patient discharged Performed By: #### L 503.6005 #### [facility] [address] [place], [address] CREAT,SERUM Normal 0.55-1.02 [facility] Comment on above: Result Comment: Canc elled via OM: Order cancelled - Patient discharged Performed By: #### L 503.6005 #### [facility] [address] [place], [address] EST GFR Normal >60 [facility] Comment on above: Result Comment: Canc elled via OM: Order cancelled - Patient discharged Performed By: #### L 503.6005 #### [facility] [address] [place], [address] EST GFR - AA Normal >60 [facility] Comment on above: Result Comment: Canc elled via OM: Order cancelled - Patient discharged Performed By: #### L 503.6005 #### [facility] [address] [place], [address] GAP Normal 5-15 [facility] Comment on above: Result Comment: Canc elled via OM: Order cancelled - Patient discharged Performed By: #### L 503.6005 #### [facility] [address] [place], [address] GLU Normal 74-106 [facility] Comment on above: Result Comment: Canc elled via OM: Order cancelled - Patient discharged Performed By: #### L 503.6005 #### [facility] [address] [place], [address] Potassium Normal 3.5-5.1 [facility] Comment on above: Result Comment: Canc elled via OM: Order cancelled - Patient discharged Performed By: #### L 503.6005 #### [facility] [address] [place], [address] Basic Metabolic Profile (BMP) Normal 136-145 [facility] Comment on above: Result Comment: Canc elled via OM: Order cancelled - Patient discharged Performed By: #### L 503.6005 #### [facility] [address] [place], [address] CBC W/Diff, Automatedon 11-0 -2023 Absolute Neut Normal 2.0-7.7 [facility] Comment on above: Result Comment: Canc elled via OM: Order cancelled - Patient discharged Performed By: #### L 503.6005 #### [facility] [address] [place], [address] HCT Normal 37-47 [facility] Comment on above: Result Comment: Canc elled via OM: Order cancelled - Patient discharged Performed By: #### L 503.6005 #### [facility] [address] [place], [address] HGB Normal 12.0-15.0 [facility] Comment on above: Result Comment: Canc elled via OM: Order cancelled - Patient discharged Performed By: #### L 503.6005 #### [facility] [address] [place], [address] MCH Normal 27.0-32.0 [facility] Comment on above: Result Comment: Canc elled via OM: Order cancelled - Patient discharged Performed By: #### L 503.6005 #### [facility] [address] [place], [address] MCHC Normal 32-36 [facility] Comment on above: Result Comment: Canc elled via OM: Order cancelled - Patient discharged Performed By: #### L 503.6005 #### [facility] [address] [place], [address] MCV Normal 81-99 [facility] Comment on above: Result Comment: Canc elled via OM: Order cancelled - Patient discharged Performed By: #### L 503.6005 #### [facility] [address] [place], [address] NEUT% Normal 47-70 [facility] Comment on above: Result Comment: Canc elled via OM: Order cancelled - Patient discharged Performed By: #### L 503.6005 #### [facility] [address] [place], [address] PLT Normal 150-450 [facility] Comment on above: Result Comment: Canc elled via OM: Order cancelled - Patient discharged Performed By: #### L 503.6005 #### [facility] [address] [place], [address] RBC Normal 4.2-5.4 [facility] Comment on above: Result Comment: Canc elled via OM: Order cancelled - Patient discharged Performed By: #### L 503.6005 #### [facility] [address] [place], [address] RDW CV Normal 11.6-14.6 [facility] Comment on above: Result Comment: Canc elled via OM: Order cancelled - Patient discharged Performed By: #### L 503.6005 #### [facility] [address] [place], [address] RDW SD Normal 35.1-43.9 [facility] Comment on above: Result Comment: Canc elled via OM: Order cancelled - Patient discharged Performed By: #### L 503.6005 #### [facility] [address] [place], [address] WBC Normal 4.4-11.0 [facility] Comment on above: Result Comment: Canc elled via OM: Order cancelled - Patient discharged Performed By: #### L 503.6005 #### [facility] [address] [place], [address] Basic Metabolic Profile (BMP )on 04-21-2024 BUN Normal 7-18 [facility] Comment on above: Result Comment: Canc elled via OM: Order cancelled - Patient discharged Performed By: #### L 500.2500, L100.0100 #### [facility] [address] [place], [address] BUN/CRE Normal 10-20 [facility] Comment on above: Result Comment: Canc elled via OM: Order cancelled - Patient discharged Performed By: #### L 500.2500, L100.0100 #### [facility] [address] [place], [address] CA,Total Normal 8.5-10.1 [facility] Comment on above: Result Comment: Canc elled via OM: Order cancelled - Patient discharged Performed By: #### L 500.2500, L100.0100 #### [facility] [address] [place], [address] CL Normal 98-107 [facility] Comment on above: Result Comment: Canc elled via OM: Order cancelled - Patient discharged Performed By: #### L 500.2500, L100.0100 #### [facility] [address] [place], [address] CO2 Normal 21.0-32.0 [facility] Comment on above: Result Comment: Canc elled via OM: Order cancelled - Patient discharged Performed By: #### L 500.2500, L100.0100 #### [facility] [address] [place], [address] CREAT,SERUM Normal 0.55-1.02 [facility] Comment on above: Result Comment: Canc elled via OM: Order cancelled - Patient discharged Performed By: #### L 500.2500, L100.0100 #### [facility] [address] [place], [address] EST GFR Normal >60 [facility] Comment on above: Result Comment: Canc elled via OM: Order cancelled - Patient discharged Performed By: #### L 500.2500, L100.0100 #### [facility] [address] [place], [address] EST GFR - AA Normal >60 [facility] Comment on above: Result Comment: Canc elled via OM: Order cancelled - Patient discharged Performed By: #### L 500.2500, L100.0100 #### [facility] [address] [place], [address] GAP Normal 5-15 [facility] Comment on above: Result Comment: Canc elled via OM: Order cancelled - Patient discharged Performed By: #### L 500.2500, L100.0100 #### [facility] [address] [place], [address] GLU Normal 74-106 [facility] Comment on above: Result Comment: Canc elled via OM: Order cancelled - Patient discharged Performed By: #### L 500.2500, L100.0100 #### [facility] [address] [place], [address] Potassium Normal 3.5-5.1 [facility] Comment on above: Result Comment: Canc elled via OM: Order cancelled - Patient discharged Performed By: #### L 500.2500, L100.0100 #### [facility] [address] [place], [address] Basic Metabolic Profile (BMP) Normal 136-145 [facility] Comment on above: Result Comment: Canc elled via OM: Order cancelled - Patient discharged Performed By: #### L 500.2500, L100.0100 #### [facility] [address] [place], [address] CBC W/Diff, Automatedon 10-3 Absolute Neut Normal 2.0-7.7 [facility] Comment on above: Result Comment: Canc elled via OM: Order cancelled - Patient discharged Performed By: #### L 503.6005 #### [facility] [address] [place], [address] HCT Normal 37-47 [facility] Comment on above: Result Comment: Canc elled via OM: Order cancelled - Patient discharged Performed By: #### L 503.6005 #### [facility] [address] [place], [address] HGB Normal 12.0-15.0 [facility] Comment on above: Result Comment: Canc elled via OM: Order cancelled - Patient discharged Performed By: #### L 503.6005 #### [facility] [address] [place], [address] MCH Normal 27.0-32.0 [facility] Comment on above: Result Comment: Canc elled via OM: Order cancelled - Patient discharged Performed By: #### L 503.6005 #### [facility] [address] [place], [address] MCHC Normal 32-36 [facility] Comment on above: Result Comment: Canc elled via OM: Order cancelled - Patient discharged Performed By: #### L 503.6005 #### [facility] [address] [place], [address] MCV Normal 81-99 [facility] Comment on above: Result Comment: Canc elled via OM: Order cancelled - Patient discharged Performed By: #### L 503.6005 #### [facility] [address] [place], [address] NEUT% Normal 47-70 [facility] Comment on above: Result Comment: Canc elled via OM: Order cancelled - Patient discharged Performed By: #### L 503.6005 #### [facility] [address] [place], [address] PLT Normal 150-450 [facility] Comment on above: Result Comment: Canc elled via OM: Order cancelled - Patient discharged Performed By: #### L 503.6005 #### [facility] [address] [place], [address] RBC Normal 4.2-5.4 [facility] Comment on above: Result Comment: Canc elled via OM: Order cancelled - Patient discharged Performed By: #### L 503.6005 #### [facility] [address] [place], [address] RDW CV Normal 11.6-14.6 [facility] Comment on above: Result Comment: Canc elled via OM: Order cancelled - Patient discharged Performed By: #### L 503.6005 #### [facility] [address] [place], [address] RDW SD Normal 35.1-43.9 [facility] Comment on above: Result Comment: Canc elled via OM: Order cancelled - Patient discharged Performed By: #### L 503.6005 #### [facility] [address] [place], [place], [address] WBC Normal 4.4-11.0 [facility] Comment on above: Result Comment: Gage posadas via OM: Order cancelled - Patient discharged Performed By: #### L 503.6005 #### [facility] [address] [place], [place], [address] MYLENE Comprehensive Panelon MYLENE TABLE Comment Normal . [facility] Comment on above: Result Comment: Auto antibody [...] Sm (anti-Enriquez) SLE 15 - 30% --------- LIMB DRIVER Mixed Connective Tissue Disease 95% (U1 nRNP, SLE 30 - 50% anti-ribonucleoprotein) Polymyositis and/or Dermatomyositis 20% --------- Scl-70 (antiDNA Scleroderma (diffuse) 20 - 35% topoisomerase) Crest 13% --------- Liliana-1 Polymyositis and/or Dermatomyositis 20 - 40% --------- Centromere B Scleroderma - Crest variant 80% Performed at: - [facility] [id number] Electrostatic Powder Coating Technician: Jeferson Reynolds PhD, Phone: [phone] Performed By: #### L 3107.5440 ####[facility] [address] [place], [address] ANTI-CENT B AB <0.2 Normal 0.0-0.9 [facility] Comment on above: Performed By: #### L 40 ####[facility] [address] [place], [address] ANTI-DNA (DS)AB 1 IU/mL Normal 0-9 [facility] Comment on above: Result Comment: Nega tive <5 Equivocal 5 - 9 Positive >9 Performed By: #### L 40 ####[facility] [address] [place], [address] ANTI-LILIANA-1 <0.2 Normal 0.0-0.9 [facility] Comment on above: Performed By: #### L 40 ####[facility] [address] [place], [address] ANTI-SS-A < 0.2 Normal 0.0-0.9 [facility] Comment on above: Performed By: #### L 40 ####[facility] [address] [place], [address] ANTI-SS-B < 0.2 Normal 0.0-0.9 [facility] Comment on above: Performed By: #### L 40 ####[facility] [address] [place], [address] ANTICHROMATIN <0.2 Normal 0.0-0.9 [facility] Comment on above: Performed By: #### L 40 ####[facility] [address] [place], [address] ANTISCLERODERM <0.2 Normal 0.0-0.9 [facility] Comment on above: Performed By: #### L 40 ####[facility] [address] [place], [address] LIMB DRIVER Ab <0.2 Normal 0.0-0.9 [facility] Comment on above: Performed By: #### L 40 ####[facility] [address] [place], [address] ENRIQUEZ Ab <0.2 Normal 0.0-0.9 [facility] Comment on above: Performed By: #### L 3367.5436 ####[facility] [address] [place], [address] ANCAon 04-20-2024 Atypical pANCA <1:20 Normal Neg:<1:20 [facility] Comment on above: Result Comment: The atypical pANCA pattern has been observed in a significant percentage of patients with ulcerative colitis, primary sclerosing cholangitis and autoimmune hepatitis. Performed at: [address] [id number] Electrostatic Powder Coating Technician: Jeferson Reynolds PhD, Phone: [phone] Performed By: #### L 500.2500, L100.0100 #### [facility] [address] [place], [address] Cytoplasmic Ab <1:20 Normal Neg:<1:20 [facility] Comment on above: Performed By: #### L 500.2500, L100.0100 #### [facility] [address] [place], [address] Perinuclear Ab. <1:20 Normal Neg:<1:20 [facility] Comment on above: Result Comment: The presence of positive fluorescence exhibiting P-ANCA or C-ANCA patterns alone is not specific for the diagnosis of Rolando's Granulomatosis (WG) or microscopic polyangiitis. Decisions about treatment should not be based solely on ANCA IFA results. The [employer] Consensus recommends follow up testing of positive sera with both WV- 3 and MPO-ANCA enzyme immunoassays. As many as 5% serum samples are positive only by EIA. Ref. AM J Clin Pathol 1999;111:507-513. Performed By: #### L 500.2500, L100.0100 #### [facility] [address] [place], [address] Basic Metabolic Profile (BMP )on 04-20-2024 BUN/CRE 8.4 RATIO Low 10-20 [facility] Comment on above: Performed By: #### L 100.0100, L500.2500 ####[facility] [address] [place], [address] CA,Total 8.6 mg/dL Normal 8.5-10.1 [facility] Comment on above: Performed By: #### L 100.0100, L500.2500 ####[facility] [address] [place], [address] Chloride [Moles/Vol] 113 mmol/L High 98-107 [facility] Comment on above: Performed By: #### L 100.0100, L500.2500 ####[facility] [address] [place], [address] CO2 [Moles/Vol] 23.0 mmol/L Normal 21.0-32.0 [facility] Comment on above: Performed By: #### L 100.0100, L500.2500 ####[facility] [address] [place], [address] Creatinine [Mass/Vol] 0.72 mg/dL Normal 0.55-1.02 [facility] Comment on above: Result Comment: The validity of the calculated GFR GFRAA in patients over 70 years has not been determined. Clinical correlation is essential. Performed By: #### L 100.0100, L500.2500 ####[facility] [address] [place], [address] ECRCL 91.35 ml/min Normal [facility] Comment on above: Performed By: #### L 100.0100, L500.2500 ####[facility] [address] [place], [address] EST GFR - AA 109 mL/min Normal >60 [facility] Comment on above: Result Comment: Afri can Israeli GFR Calc Performed By: #### L 100.0100, L500.2500 ####[facility] [address] [place], [address] GAP 6 Normal 5-15 [facility] Comment on above: Performed By: #### L 100.0100, L500.2500 ####[facility] [address] [place], [address] GFR/1.73 sq M.predicted among non-blacks MDRD (S/P/Bld) [Vol rate/Area] 90 mL/min/{1.73_m2} Normal >60 [facility] Comment on above: Result Comment: Non- GFR Calc Performed By: #### L 100.0100, L500.2500 ####[facility] [address] [place], [address] Glucose [Mass/Vol] 84 mg/dL Normal 74-106 [facility] Comment on above: Performed By: #### L 100.0100, L500.2500 ####[facility] [address] [place], [address] Potassium [Moles/Vol] 3.2 mmol/L Low 3.5-5.1 [facility] Comment on above: Performed By: #### L 100.0100, L500.2500 ####[facility] [address] [place], [address] Sodium [Moles/Vol] 142 mmol/L Normal 136-145 [facility] Comment on above: Performed By: #### L 100.0100, L500.2500 ####[facility] [address] [place], [address] Urea nitrogen [Mass/Vol] 6 mg/dL Low 7-18 [facility] Comment on above: Performed By: #### L 100.0100, L500.2500 ####[facility] [address] [place], [address] CBC W/Diff, Automatedon 10-3 0-2024 Absolute Lymph 2.12 X10 3/uL Normal 0.83-4.51 [facility] Comment on above: Performed By: #### L 100.0100, L500.2500 ####[facility] [address] [place], [address] Absolute Neut 4.5 X10 3/uL Normal 2.0-7.7 [facility] Comment on above: Performed By: #### L 100.0100, L500.2500 ####[facility] [address] [place], [address] Basophils/100 WBC (Bld) 0.4 % Normal 0-1 [facility] Comment on above: Performed By: #### L 100.0100, L500.2500 ####[facility] [address] [place], [address] Eosinophils/100 WBC (Bld) 0.6 % Normal 0-5 [facility] Comment on above: Performed By: #### L 100.0100, L500.2500 ####[facility] [address] [place], [address] Erythrocyte distribution width (RBC) [Ratio] 12.2 % Normal 11.6-14.6 [facility] Comment on above: Performed By: #### L 100.0100, L500.2500 ####[facility] [address] [place], [address] Hematocrit (Bld) [Volume fraction] 34.9 % Low 37-47 [facility] Comment on above: Performed By: #### L 100.0100, L500.2500 ####[facility] [address] [place], [address] Hemoglobin (Bld) [Mass/Vol] 11.6 g/dL Low 12.0-15.0 [facility] Comment on above: Performed By: #### L 100.0100, L500.2500 ####[facility] [address] [place], [address] IG% 0.300 Normal 0.0-0.9 [facility] Comment on above: Result Comment: IG% - Immature Granulocytes (promyelocytes, myelocytes and metamyelocytes) > 1% indicates that a LEFT SHIFT is Present. Performed By: #### L 100.0100, L500.2500 ####[facility] [address] [place], [address] Lymphocytes/100 WBC (Bld) 29.4 % Normal 19-41 [facility] Comment on above: Performed By: #### L 100.0100, L500.2500 ####[facility] [address] [place], [address] MCH (RBC) [Entitic mass] 28.2 pg Normal 27.0-32.0 [facility] Comment on above: Performed By: #### L 100.0100, L500.2500 ####[facility] [address] [place], [address] MCHC (RBC) [Mass/Vol] 33.2 g/dL Normal 32-36 [facility] Comment on above: Performed By: #### L 100.0100, L500.2500 ####[facility] [address] [place], [address] MCV (RBC) [Entitic vol] 84.9 fL Normal 81-99 [facility] Comment on above: Performed By: #### L 100.0100, L500.2500 ####[facility] [address] [place], [address] Monocytes/100 WBC (Bld) 6.7 % Normal 0-10 [facility] Comment on above: Performed By: #### L 100.0100, L500.2500 ####[facility] [address] [place], [address] Neutrophils/100 WBC (Bld) 62.6 % Normal 47-70 [facility] Comment on above: Performed By: #### L 100.0100, L500.2500 ####[facility] [address] [place], [address] Nucleated RBC (Bld) [#/Vol] 0 10*3/uL Normal 0-5 [facility] Comment on above: Performed By: #### L 100.0100, L500.2500 ####[facility] [address] [place], [address] Platelet mean volume (Bld) [Entitic vol] 9.1 fL Normal 6.2-12.0 [facility] Comment on above: Performed By: #### L 100.0100, L500.2500 ####[facility] [address] [place], [address] Platelets (Bld) [#/Vol] 300 10*3/uL Normal 150-450 [facility] Comment on above: Performed By: #### L 100.0100, L500.2500 ####[facility] [address] [place], [address] RBC (Bld) [#/Vol] 4.11 10*6/uL Low 4.2-5.4 [facility] Comment on above: Performed By: #### L 100.0100, L500.2500 ####[facility] [address] [place], [address] RDW SD 37.7 fl Normal 35.1-43.9 [facility] Comment on above: Performed By: #### L 100.0100, L500.2500 ####[facility] [address] [place], [address] WBC (Bld) [#/Vol] 7.2 10*3/uL Normal 4.4-11.0 [facility] Comment on above: Performed By: #### L 100.0100, L500.2500 ####[facility] [address] [place], [address] Discharge Instructionon 03-24 Discharge Instruction [facility] Medical Records Department [address] [place] [address] Instructions for Home/Discharge Instructions 04/20/24 0941 MR#: [id number] Acct: [id number] Name: FRANK VENTURA Rep #: [id number] : 1970 53 From: Karissa Hernandez MD [...] Order can be placed): Home, Self Care 04/20/24 0941 Karissa Hernandez MD CC: Dr. Juan Carolina MD Signed Normal [facility] Basic Metabolic Profile (BMP )on 04-19-2024 BUN/CRE 8.5 RATIO Low 10-20 [facility] Comment on above: Performed By: #### L 500.2500, L100.0100 #### [facility] [address] [place], [address] CA,Total 8.6 mg/dL Normal 8.5-10.1 [facility] Comment on above: Performed By: #### L 500.2500, L100.0100 #### [facility] [address] [place], [address] Chloride [Moles/Vol] 111 mmol/L High 98-107 [facility] Comment on above: Performed By: #### L 500.2500, L100.0100 #### [facility] [address] [place], [address] CO2 [Moles/Vol] 26.0 mmol/L Normal 21.0-32.0 [facility] Comment on above: Performed By: #### L 500.2500, L100.0100 #### [facility] [address] [place], [address] Creatinine [Mass/Vol] 0.83 mg/dL Normal 0.55-1.02 [facility] Comment on above: Result Comment: The validity of the calculated GFR GFRAA in patients over 70 years has not been determined. Clinical correlation is essential. Performed By: #### L 500.2500, L100.0100 #### [facility] [address] [place], [address] ECRCL 79.25 ml/min Normal [facility] Comment on above: Performed By: #### L 500.2500, L100.0100 #### [facility] [address] [place], [address] EST GFR - AA 93 mL/min Normal >60 [facility] Comment on above: Result Comment: Afri can Israeli GFR Calc Performed By: #### L 500.2500, L100.0100 #### [facility] [address] [place], [address] GAP 5 Normal 5-15 [facility] Comment on above: Performed By: #### L 500.2500, L100.0100 #### [facility] [address] [place], [address] GFR/1.73 sq M.predicted among non-blacks MDRD (S/P/Bld) [Vol rate/Area] 77 mL/min/{1.73_m2} Normal >60 [facility] Comment on above: Result Comment: Non- GFR Calc Performed By: #### L 500.2500, L100.0100 #### [facility] [address] [place], [address] Glucose [Mass/Vol] 93 mg/dL Normal 74-106 [facility] Comment on above: Performed By: #### L 500.2500, L100.0100 #### [facility] [address] [place], [address] Potassium [Moles/Vol] 3.5 mmol/L Normal 3.5-5.1 [facility] Comment on above: Performed By: #### L 500.2500, L100.0100 #### [facility] [address] [place], [address] Sodium [Moles/Vol] 142 mmol/L Normal 136-145 [facility] Comment on above: Performed By: #### L 500.2500, L100.0100 #### [facility] [address] [place], [address] Urea nitrogen [Mass/Vol] 7 mg/dL Normal 7-18 [facility] Comment on above: Performed By: #### L 500.2500, L100.0100 #### [facility] [address] [place], [address] CBC W/Diff, Automatedon 10-2 Absolute Lymph 1.83 X10 3/uL Normal 0.83-4.51 [facility] Comment on above: Performed By: #### L 500.2500, L100.0100 #### [facility] [address] [place], [address] Absolute Neut 6.0 X10 3/uL Normal 2.0-7.7 [facility] Comment on above: Performed By: #### L 500.2500, L100.0100 #### [facility] [address] [place], [address] Basophils/100 WBC (Bld) 0.5 % Normal 0-1 [facility] Comment on above: Performed By: #### L 500.2500, L100.0100 #### [facility] [address] [place], [address] Eosinophils/100 WBC (Bld) 0.7 % Normal 0-5 [facility] Comment on above: Performed By: #### L 500.2500, L100.0100 #### [facility] [address] [place], [address] Erythrocyte distribution width (RBC) [Ratio] 12.6 % Normal 11.6-14.6 [facility] Comment on above: Performed By: #### L 500.2500, L100.0100 #### [facility] [address] [place], [address] Hematocrit (Bld) [Volume fraction] 40.4 % Normal 37-47 [facility] Comment on above: Performed By: #### L 500.2500, L100.0100 #### [facility] [address] [place], [address] Hemoglobin (Bld) [Mass/Vol] 13.3 g/dL Normal 12.0-15.0 [facility] Comment on above: Performed By: #### L 500.2500, L100.0100 #### [facility] [address] [place], [address] IG% 0.200 Normal 0.0-0.9 [facility] Comment on above: Result Comment: IG% - Immature Granulocytes (promyelocytes, myelocytes and metamyelocytes) > 1% indicates that a LEFT SHIFT is Present. Performed By: #### L 500.2500, L100.0100 #### [facility] [address] [place], [address] Lymphocytes/100 WBC (Bld) 21.6 % Normal 19-41 [facility] Comment on above: Performed By: #### L 500.2500, L100.0100 #### [facility] [address] [place], [address] MCH (RBC) [Entitic mass] 28.4 pg Normal 27.0-32.0 [facility] Comment on above: Performed By: #### L 500.2500, L100.0100 #### [facility] [address] [place], [address] MCHC (RBC) [Mass/Vol] 32.9 g/dL Normal 32-36 [facility] Comment on above: Performed By: #### L 500.2500, L100.0100 #### [facility] [address] [place], [address] MCV (RBC) [Entitic vol] 86.3 fL Normal 81-99 [facility] Comment on above: Performed By: #### L 500.2500, L100.0100 #### [facility] [address] [place], [address] Monocytes/100 WBC (Bld) 6.0 % Normal 0-10 [facility] Comment on above: Performed By: #### L 500.2500, L100.0100 #### [facility] [address] [place], [address] Neutrophils/100 WBC (Bld) 71.0 % High 47-70 [facility] Comment on above: Performed By: #### L 500.2500, L100.0100 #### [facility] [address] [place], [address] Nucleated RBC (Bld) [#/Vol] 0 10*3/uL Normal 0-5 [facility] Comment on above: Performed By: #### L 500.2500, L100.0100 #### [facility] [address] [place], [address] Platelet mean volume (Bld) [Entitic vol] 8.7 fL Normal 6.2-12.0 [facility] Comment on above: Performed By: #### L 500.2500, L100.0100 #### [facility] [address] [place], [address] Platelets (Bld) [#/Vol] 352 10*3/uL Normal 150-450 [facility] Comment on above: Performed By: #### L 500.2500, L100.0100 #### [facility] [address] [place], [address] RBC (Bld) [#/Vol] 4.68 10*6/uL Normal 4.2-5.4 [facility] Comment on above: Performed By: #### L 500.2500, L100.0100 #### [facility] [address] [place], [address] RDW SD 39.6 fl Normal 35.1-43.9 [facility] Comment on above: Performed By: #### L 500.2500, L100.0100 #### [facility] [address] [place], [address] WBC (Bld) [#/Vol] 8.5 10*3/uL Normal 4.4-11.0 [facility] Comment on above: Performed By: #### L 500.2500, L100.0100 #### [facility] [address] [place], [address] CORTISOL SERUMon 04-19-2024 CORTISOL 36.60 ug/dL High 3.44-22.45 [facility] Comment on above: Order Comment: 60M Result Comment: Adul t (AM) 5.27 - 22.45 ug/dL Adult (PM) 3.44 - 16.76 ug/dL Performed By: #### L 500.2500, L100.0100 #### [facility] [address] [place], [address] CORTISOL 10.50 ug/dL Normal 3.44-22.45 [facility] Comment on above: Order Comment: B Result Comment: Adul t (AM) 5.27 - 22.45 ug/dL Adult (PM) 3.44 - 16.76 ug/dL Performed By: #### L 100.0100, L500.2500, L503.6005 #### [facility] [address] [place], [address] Colonoscopy Reporton Colonoscopy Report [facility] Medical Records Department [address] [place] [address] Colonoscopy Report MR#: [id number] Acct: [id number] Name: FRANK VENTURA Rep #: [id number] : 1970 53 From: Jose Rodriguez DO [...] for surveillance. Procedure Code(s): --- Professional --- 03270, Colonoscopy, flexible; with biopsy, single or multiple CPT copyright 2021 [employer]. All rights reserved. The codes documented in this report are preliminary and upon plastics engineering teacher review may be revised to meet current compliance requirements. Jose Rodriguez DO 04/19/2024 3:58:59 PM This report has been signed electronically. Number of Addenda: 0 Note Initiated On: 04/19/2024 3:22 PM 04/19/24 1559 Date Jose Rodriguez DO Cosigner Signature: Date (if indicated) CC: Dr. Juan Carolina MD; Jose Rodriguez DO Date Dictated: 04/19/24 1522 Date Transcribed: Aircraft Mechanic: RF Signed [facility] MR/POSTOP.[facility] 04-19-2024 MR/POSTOP.[facility] Medical Records Department [address] [place] [address] Anesthesia Postop Eval I 04/19/24 1606 MR#: [id number] Acct: [id number] Name: FRANK VENTURA Rep #: [id number] : 1970 53 From: Jonah Nugent PCP: Dr. Juan Carolina MD Status:ADM IN Y Race: C Location: [place] [address] Anesthesia: Postop Eval I Current Vital Signs [...] Anesthesia document: Postop Eval 1 completed: Yes 04/20/24 0711 Date Jonah Nugent 04/19/24 1621 Cosigner Signature: Date Jaleel Contreras MD CC: Signed Normal [facility] MR/[id number] 04-19-2024 [facility] Medical Records Department [address] [place] [address] Anesthesia Postop Eval II 04/19/24 1614 MR#: [id number] Acct: [id number] Name: FRANK VENTURA Rep #: [id number] : 1970 53 From: Jaleel Contreras MD PCP: Dr. Juan Carolina MD Status:ADM IN Y Race: C Location: [place] [address] Anesthesia Postop Eval I Sum Postop Eval [...] No Vomiting: No 04/19/24 1614 Date Jaleel Moreira Signature: Date CC: Signed Normal [facility] Surgery Specimen Level Fede 04-19-2024 Surgery Specimen Level IV Patient Age/Sex Location Account Attending Physician FRANK VENTURA 53/F MS3 [id number] Dr. Karissa Hernandez MD Specimen: [id number] Received: 04/19/24 Status: IVKAS Deluca Num: [id number] Spec Type: COLON BX Subm Dr: Jose Rodriguez DO HEADER OPERATION: Colonoscopy with biopsy PRE-OP DIAGNOSIS: Lower [...] colonic mucosa, no pathologic diagnosis. See comment. [place] 04/21/2024 COMMENT Correlation with clinical, endoscopic findings [...] labeled with the patient's name and designated Rectum biopsy. The specimen consists of multiple irregular fragments of light jones soft tissue that in aggregate measure 0.8 x 0.3 x 0.1 cm. The specimen is totally submitted in one cassette. . 04/20/2024 TC:5 CPT:89056f0 Patient Age/Sex Location Account Attending Physician FRANK VENTURA 53/F MS3 [id number] Dr. Karissa Hernandez MD Signed (signature on file) Dr. Dick Jay MD 04/21/24 1335 Normal [facility] Comment on above: Performed By: #### P SUPARISH ####[facility] [address], [address] Abdomen/Pelvis W IV Cont ONL Yon 04-18-2024 Abdomen/Pelvis W IV Cont ONLY [facility] Imaging Services [address] [place] [address] Abdomen/Pelvis W IV Cont ONLY MR#: [id number] Acct: [id number] Name: FRANK VENTURA Rep #: [id number] : 1970 F 53 From: Chong mayo MD PCP: Dr. Juan Carolina MD Status: REG ER Study: Abdomen/Pelvis W IV Cont ONLY Date of Exam: Exam# [id number] Ordering Dr: Tyree Marie DO [id number] STUDY: CT ABDOMEN AND PELVIS WITH CONTRAST [...] at 10:51 EDT , CC: Dr. Tyree Marie, DO; Dr. 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, [address] CA,Total 9.6 mg/dL Normal 8.5-10.1 [facility] Comment on above: Performed By: #### L 100.0100, L500.2500, L503.6005 #### [facility] [address] [place], [address] Chloride [Moles/Vol] 109 mmol/L High 98-107 [facility] Comment on above: Performed By: #### L 100.0100, L500.2500, L503.6005 #### [facility] [address] [place], [address] CO2 [Moles/Vol] 25.0 mmol/L Normal 21.0-32.0 [facility] Comment on above: Performed By: #### L 100.0100, L500.2500, L503.6005 #### [facility] [address] [place], [address] Creatinine [Mass/Vol] 0.98 mg/dL Normal 0.55-1.02 [facility] Comment on above: Result Comment: The validity of the calculated GFR GFRAA in patients over 70 years has not been determined. Clinical correlation is essential. Performed By: #### L 100.0100, L500.2500, L503.6005 #### [facility] [address] [place], [address] ECRCL 67.12 ml/min Normal [facility] Comment on above: Performed By: #### L 100.0100, L500.2500, L503.6005 #### [facility] [address] [place], [address] EST GFR - AA 77 mL/min Normal >60 [facility] Comment on above: Result Comment: Afri can Israeli GFR Calc Performed By: #### L 100.0100, L500.2500, L503.6005 #### [facility] [address] [place], [address] GAP 9 Normal 5-15 [facility] Comment on above: Performed By: #### L 100.0100, L500.2500, L503.6005 #### [facility] [address] [place], [address] GFR/1.73 sq M.predicted among non-blacks MDRD (S/P/Bld) [Vol rate/Area] 63 mL/min/{1.73_m2} Normal >60 [facility] Comment on above: Result Comment: Non- GFR Calc Performed By: #### L 100.0100, L500.2500, L503.6005 #### [facility] [address] [place], [address] Glucose [Mass/Vol] 110 mg/dL High 74-106 [facility] Comment on above: Result Comment: Fast ing Glucose result from 100 to 125 mg/dL suggests IMPAIRED HOMEOSTASIS per A.D.A. criteria. Performed By: #### L 100.0100, L500.2500, L503.6005 #### [facility] [address] [place], [address] Potassium [Moles/Vol] 4.2 mmol/L Normal 3.5-5.1 [facility] Comment on above: Performed By: #### L 100.0100, L500.2500, L503.6005 #### [facility] [address] [place], [address] Sodium [Moles/Vol] 143 mmol/L Normal 136-145 [facility] Comment on above: Performed By: #### L 100.0100, L500.2500, L503.6005 #### [facility] [address] [place], [address] Urea nitrogen [Mass/Vol] 15 mg/dL Normal 7-18 [facility] Comment on above: Performed By: #### L 100.0100, L500.2500, L503.6005 #### [facility] [address] [place], [address] CBC W/Diff, Automatedon 10-2 Absolute Lymph 1.03 X10 3/uL Normal 0.83-4.51 [facility] Comment on above: Performed By: #### L 100.0100, L500.2500, L503.6005 #### [facility] [address] [place], [address] Absolute Neut 10.0 X10 3/uL High 2.0-7.7 [facility] Comment on above: Performed By: #### L 100.0100, L500.2500, L503.6005 #### [facility] [address] [place], [address] Basophils/100 WBC (Bld) 0.5 % Normal 0-1 [facility] Comment on above: Performed By: #### L 100.0100, L500.2500, L503.6005 #### [facility] [address] [place], [address] Eosinophils/100 WBC (Bld) 0.1 % Normal 0-5 [facility] Comment on above: Performed By: #### L 100.0100, L500.2500, L503.6005 #### [facility] [address] [place], [address] Erythrocyte distribution width (RBC) [Ratio] 12.4 % Normal 11.6-14.6 [facility] Comment on above: Performed By: #### L 100.0100, L500.2500, L503.6005 #### [facility] [address] [place], [address] Hematocrit (Bld) [Volume fraction] 46.8 % Normal 37-47 [facility] Comment on above: Performed By: #### L 100.0100, L500.2500, L503.6005 #### [facility] [address] [place], [address] Hemoglobin (Bld) [Mass/Vol] 15.7 g/dL High 12.0-15.0 [facility] Comment on above: Performed By: #### L 100.0100, L500.2500, L503.6005 #### [facility] [address] [place], [address] IG% 0.400 Normal 0.0-0.9 [facility] Comment on above: Result Comment: IG% - Immature Granulocytes (promyelocytes, myelocytes and metamyelocytes) > 1% indicates that a LEFT SHIFT is Present. Performed By: #### L 100.0100, L500.2500, L503.6005 #### [facility] [address] [place], [address] Lymphocytes/100 WBC (Bld) 8.9 % Low 19-41 [facility] Comment on above: Performed By: #### L 100.0100, L500.2500, L503.6005 #### [facility] [address] [place], [address] MCH (RBC) [Entitic mass] 28.9 pg Normal 27.0-32.0 [facility] Comment on above: Performed By: #### L 100.0100, L500.2500, L503.6005 #### [facility] [address] [place], [address] MCHC (RBC) [Mass/Vol] 33.5 g/dL Normal 32-36 [facility] Comment on above: Performed By: #### L 100.0100, L500.2500, L503.6005 #### [facility] [address] [place], [address] MCV (RBC) [Entitic vol] 86.0 fL Normal 81-99 [facility] Comment on above: Performed By: #### L 100.0100, L500.2500, L503.6005 #### [facility] [address] [place], [address] Monocytes/100 WBC (Bld) 3.5 % Normal 0-10 [facility] Comment on above: Performed By: #### L 100.0100, L500.2500, L503.6005 #### [facility] [address] [place], [address] Neutrophils/100 WBC (Bld) 86.6 % High 47-70 [facility] Comment on above: Performed By: #### L 100.0100, L500.2500, L503.6005 #### [facility] [address] [place], [address] Nucleated RBC (Bld) [#/Vol] 0 10*3/uL Normal 0-5 [facility] Comment on above: Performed By: #### L 100.0100, L500.2500, L503.6005 #### [facility] [address] [place], [address] Platelet mean volume (Bld) [Entitic vol] 8.9 fL Normal 6.2-12.0 [facility] Comment on above: Performed By: #### L 100.0100, L500.2500, L503.6005 #### [facility] [address] [place], [address] Platelets (Bld) [#/Vol] 390 10*3/uL Normal 150-450 [facility] Comment on above: Performed By: #### L 100.0100, L500.2500, L503.6005 #### [facility] [address] [place], [address] RBC (Bld) [#/Vol] 5.44 10*6/uL High 4.2-5.4 [facility] Comment on above: Performed By: #### L 100.0100, L500.2500, L503.6005 #### [facility] [address] [place], [address] RDW SD 38.3 fl Normal 35.1-43.9 [facility] Comment on above: Performed By: #### L 100.0100, L500.2500, L503.6005 #### [facility] [address] [place], [address] WBC (Bld) [#/Vol] 11.5 10*3/uL High 4.4-11.0 [facility] Comment on above: Performed By: #### L 100.0100, L500.2500, L503.6005 #### [facility] [address] [place], [address] CDIFF (PCR)on 04-18-2024 CDIFF Pending [phone] NAP1-B1 Presumptive Negative *for epidemiolologic???use C. Diff PCR Negative- No toxigenic C. Diff Detected Normal [facility] Comment on above: Performed By: #### M 100.6796 ####[facility] [address], [address] CPK Total, Creatine Kinaseon 04-18-2024 CPK TOTAL 49 U/L Normal 26-192 [facility] Comment on above: Performed By: #### L 500.2500, L100.0100 #### [facility] [address] [place], [address] CRPon 04-18-2024 C-REACTIVE PROT 3.64 mg/L High 0.0-3.0 [facility] Comment on above: Result Comment: C-Re active Protein (CRP) provides useful information for the diagnosis, therapy and monitoring of inflammatory processes and associated diseases. For the evaluation of Relative Risk for Cardiovascular Disease, a High Sensitivity CRP (HSCRP) should be ordered. Performed By: #### L 500.2500, L100.0100 #### [facility] [address] [place], [address] D-Dimer Quantitative (DVT/PE )on 04-18-2024 D-DIMER QUANT 0.31 FEU/ug/m Normal 0.27-0.49 [facility] Comment on above: Result Comment: NORM AL D-Dimer level (<0.50) indicates no DVT or PE. Performed By: #### L 503.6005 #### [facility] [address] [place], [address] Emergency Department Summary on 04-18-2024 Emergency Department Summary [facility] Medical Records Department [address] [place] [address] Emergency Department Summary 04/18/24 MR#: [id number] Acct: [id number] Name: FRANK VENTURA Rep #: [id number] : 1970 53 From: Tyree Marie DO PCP: Dr. Juan Carolina MD Status:ADM IN Location: [facility] XY123-1 HPI HPI - GI History of Present [...] had history of diverticulitis. 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 She denies fever or chills or sweats. PFSH PFSH Medical History Acute hemorrhagic colitis Arthritis Endometriosis [...] Negative for (more content not included)... Normal [facility] Erythrocyte Sed Rateon 04-18 SED RATE 18 mm/hr Normal 0-30 [facility] Comment on above: Performed By: #### L 500.2500, L100.0100 #### [facility] [address] [place], [address] [facility] H&P Exam - Hospitalist [facility] Medical Records Department [address] [place] [address] H P Exam - Hospitalist 04/18/24 1110 MR#: [id number] Acct: [id number] Name: FRANK VENTURA Rep #: [id number] : 1970 53 From: Karissa Hernandez MD PCP: Dr. Juan Carolina MD Status:ADM IN Location: [facility] MU316-7 HPI - General General Date of Admission: [...] in the ED were BP of 129/77, WV of 82, RR of 15 and temp [...] bilaterally Cardio (more content not included)... Normal [facility] Lactic Acidon 04-18-2024 Lactate [Moles/Vol] 0.9 mmol/L Normal 0.4-1.9 [facility] Comment on above: Performed By: #### L 503.6005 #### [facility] [address] [place], [address] Lactate [Moles/Vol] 2.1 mmol/L Invalid Interpretation Code 0.4-1.9 [facility] Comment on above: Order Comment: Y Result Comment: Crit ical Result(s) Called at: 10:23:10 04/18/2024 by: BHAVANI PAIGE TO SG GARBER. Results read back by same. Performed By: #### L 100.0100, L500.2500, L503.6005 #### [facility] [address] [place], [address] MR/CON.PCM.GIon 04-18-2024 MR/CON.PCM.GI [facility] Medical Records Department [address] [place] [address] Consultation - GI 04/18/24 1938 MR#: [id number] Acct: [id number] Name: FRANK VENTURA Rep #: [id number] : 1970 53 From: Jose Friend DO PCP: Dr. Juan Carolina MD Status:ADM IN Location: [facility] UU967-2 HPI Consult Data Date of Consult: 04/18/24 [...] Narrative: modera (more content not included)... Normal [facility] Rheumatoid Factoron 04-18-20 24 RHEUMATOID FAC < 10.0 Normal <15 [facility] Comment on above: Performed By: #### L 500.2500, L100.0100 #### [facility] [address] [place], [place], [address] Type AND Screenon 04-18-2024 Ab SCREEN GEL Negative Normal [facility] Comment on above: Order Comment: HGI Performed By: #### B TS ####[facility] [address] [place], [place], [address] CNOVon 11-10-2023 CNOV Office Visit (INTMWS ) -- FRANK VENTURA ([id number]) 1970 F CHT Date Time Provider Department 11/10/23 8:20 AM JUAN CAROLINA INTMWS During your visit today, we recorded the following information about you: Temperature Pulse Respiration Blood pressure 98.5 degrees 80/minute 16/minute 112/70 Weight 84.8 kg Juan Carolina MD 11/10/2023 9:12 AM Signed This note was created using [employer]. Subjective Patient presents with: Weight Problem Frank Ventura is a 53 year old female. [place] with topiramate from [facility]. She was following her diet. Her weight has not decreased. She has made preliminary inquiries to get a gastric sleeve done in [place]. She was aware of risks. She had [...] and gastroduodenitis (more content not included)... Normal [facility] INSULIN ASSAY BLOODon 2023 Insulin Qn 16.5 u[IU]/mL 3.0 - 25.0 mU/L [facility] ANES POSTPROC EVALon 024 ANES POSTPROC EVAL HNO ID: [id number] Author: BRYAN GORDON MD Service: Anesthesiology Author Type: Anesthesiologist Type: Anesthesia Postprocedure Evaluation Filed: 08/19/2023 16:45 Note Text: POST ANESTHESIA EVALUATION NOTE : 1970 Procedure Summary Date: 08/19/23 Room / Location: [facility] OR02 [facility] [place] Anesthesia Start: 1413 Anesthesia Stop: 1553 Procedure: EXCISION LIPOMA EXTREMITY LOWER (Bilateral: Leg) Diagnosis: Lipoma of lower extremity, unspecified laterality (Lipoma of lower extremity, unspecified laterality [D17.20]) Surgeons: Anthony Kan MD Responsible Provider: Brian Orozco DO Anesthesia Type: general ASA Status: 2 [...] August 19, 2023 TIME: 4:45 PM CSN: [id number] [facility] ANES PRE-OPon 08-19-2023 ANES PRE-OP HNO ID: [id number] Author: BRIAN OROZCO DO Service: Anesthesiology Author Type: Anesthesiologist Type: Anesthesia Preprocedure Evaluation Filed: 08/19/2023 12:36 Note Text: ANESTHESIOLOGY DAY OF SURGERY NOTE : 1970 Procedure Information Date/Time: 08/19/23 1328 Procedure: EXCISION LIPOMA EXTREMITY LOWER (Bilateral: Leg) Location: [facility]02 / [place] Surgeons: Anthony Kan MD Estimated body mass index is 31.35 kg/m? as calculated from the following: Height as of this encounter: 160 cm (5' 3). Weight as of this encounter: 80.3 kg [...] and consent discussed: yes. Patient / Responsible Constitution Party agrees to proceed: yes Patient / [...] August 19, 2023 TIME: 12:33 PM CSN: [id number] [facility] HISTORY PHYSICALon HISTORY PHYSICAL HNO ID: [id number] Author: ANTHONY KAN MD Service: General Surgery [...] Maternal Uncle Co (more content not included)... [facility] OPERATIVE NOon 08-19-2023 OPERATIVE NO HNO ID: [id number] Author: ANTHONY KAN MD Service: General Surgery Author Type: Physician Type: Operative Report Filed: 09/02/2023 15:02 Note Text: OPERATIVE/PROCEDURE REPORT LOG ID: [id number] SURGERY/PROCEDURE DATE: 08/19/2023 INCISION/PROCEDURE START TIME: 2:36 PM INCISION CLOSE/PROCEDURE END TIME: 3:45 PM SURGEON(S)/PROCEDURALIST(S ) AND INSTRUMENT DESIGNER(S): Surgeon(s) and Role: * Anthony Kan MD - Primary * Lorenza Worrell DO - Resident - Assisting Physician Cnc Programmer: Nichelle Rees PA-C SURGERY/PROCEDURE(S): Excision of multiple [...] : right leg Tissue LIPOMA SURGICAL PATHOLOGY Lucius, Anthony T, MD 08/19/2023 2:51 PM B : left [...] DATE: August 19, 2023 TIME: 3:59 PM [facility] SURGICAL PATHOLOGYon 024 CASE REPORT Normal [facility] Comment on above: Order Comment: Speci costa Type: TISSUE SPECIMEN Ordering Facility: [facility] Address: [address] [place] [address] Result Comment: Surg ical Pathology Report Case: [id number] Authorizing Provider: Anthony Kan MD Collected: 08/19/2023 02:51 PM Ordering Location: [facility] Surgery Received: 08/20/2023 08:23 AM Pathologist: Victor Manuel Ya Specimens: A) - LIPOMA, right leg B) - LIPOMA, left leg C) - SKIN EXCISION, right leg Performed By: #### S #### [facility] CLIA [id number] [address] [place] [address] [place] CLINICAL HISTORY Normal [facility] Comment on above: Order Comment: Speci men Type: TISSUE SPECIMEN Ordering Facility: [facility] Address: [address] [place] [address] Result Comment: Pre- op diagnosis: Lipoma of lower extremity, unspecified laterality [D17.20] Performed By: #### S #### [facility] CLIA [id number] [address] [place] [address] [place] FINAL DIAGNOSIS Normal [facility] Comment on above: Order Comment: Speci costa Type: TISSUE SPECIMEN Ordering Facility: [facility] Address: [address] [place] [address] Result Comment: A. S oft tissue, right leg, excision: - Angiolipoma. B. Soft tissue, left leg, excision: - Angiolipoma. C. Skin, right leg, excision: - Dermatofibroma (benign fibrous histiocytoma). Performed By: #### S #### [facility] CLIA [id number] [address] [place] [address] [place] FINAL PERFORMING LAB Normal [facility] Comment on above: Order Comment: Speci men Type: TISSUE SPECIMEN Ordering Facility: [facility] Address: [address] [place] [address] Result Comment: Diag nostic interpretation performed at [facility], [address] [place] [address] CLIA# [id number] Splitting Machine Operator Helper: Marcello Daniel M.D. Performed By: #### S #### [facility] CLIA [id number] [address] [place] [address] GROSS DESCRIPTION A. LIPOMA Normal [facility] Comment on above: Order Comment: Speci men Type: TISSUE SPECIMEN Ordering Facility: [facility] Address: [address] [place] [address] Result Comment: Rece ived in formalin labeled right leg are multiple irregularly-shaped, rubbery excisions of encapsulated adipose tissue aggregating to 6 x 5.5 x 3 cm. The cut surfaces are soft and lobular adipose tissue. There are no areas of induration. [employer] Academic [employer] sections are submitted in cassettes A1-A3. [facility] August 20, 2023 12:06 PM Gross examination performed at [facility], [address] [place] [address] CLIA# [id number] B. LIPOMA Received in formalin labeled left leg are multiple irregularly-shaped, rubbery excisions of encapsulated adipose tissue aggregating to 6 x 5.8 x 2.5 cm. The cut surfaces are soft and lobular adipose tissue. There are no areas of induration. [employer] Academic Coach sections are submitted in cassettes B1-B3. [facility] August 20, 2023 12:08 PM Gross examination performed at [facility], [facility] [place] [id number] CLIA# [id number] C. SKIN EXCISION Received in formalin labeled right leg is an ellipse of fritz skin measuring 1.4 x 1 x 0.2 cm. There is no obvious skin lesion. The cut surfaces are white and indurated. Entirely submitted in cassette C1. [facility] August 20, 2023 12:10 PM Gross examination performed at [facility], [address] [place], [place] [address] CLIA# [id number] Performed By: #### S #### [facility] CLIA [id number] [address] [place] [id number] CNOVon 06-26-2023 CNOV Office Visit (AGVASJacinda CC) -- BETTEFRANK FOLEY ([id number]) 1970 F [facility] Date Time Provider Department 06/26/23 10:30 AM [...] SPX 1992 Laparoscopy LEFT HEART CATH,PERCUTANEOUS 03/23/2013 [facility] Normal coronaries. PAST SURGICAL HISTORY OF 10/28/2011 removal of lump on left breast SIGMOIDOSCOPY FLEX DIAG 06/09/2023 TONSILLECTOMY PRIMARY/SECONDARY Tonsillectomy Social History Tobacco Use Smoking status: Former Packs/day: 0.50 Years: 5.00 Additional pack years: 0.00 Total pack years: 2.50 Types: Cigarettes Quit date: 06/22/2009 Years since quittin.0 Smokeless tobacco: Neve (more content not included)... Normal [facility] Ermias 06-12-2023 SHAKILA Telephone (AGVASACC) -- FRANK VENTURA ([id number]) 1970 F CHT Date Time Provider Department 06/12/23 TEA TELLO During your visit today, we recorded the following information about you: Gail Mercado 06/12/2023 9:40 AM Signed Left to schedule OV. *LM or JZ* ED referral - work-up for mesenteric ischemia (OK next avail per JM) Allergies As of Date: 06/12/2023 (No Known Allergies) Date Reviewed: 06/09/2023 Reviewed by: Norma Byrd, SG - Fully Assessed Reason for Visit: Appointment [...] Status:Closed by GAIL MERCADO on 06/12/23 [facility] ANES POSTPROC EVALon 023 ANES POSTPROC EVAL HNO ID: [id number] Author: Avery Torres MD Service: Anesthesiology Author Type: Physician Type: Anesthesia Postprocedure Evaluation Filed: 06/09/2023 2:54 PM Note Text: POST ANESTHESIA EVALUATION NOTE : 1970 Procedure Summary Date: 06/09/23 Room / Location: [facility] Anesthesia Start: 1312 Anesthesia Stop: 1332 Procedure: SIGMOIDOSCOPY Diagnosis: (Hematochezia) [...] June 09, 2023 TIME: 2:54 PM CSN: [id number] [facility] ANES PRE-OPon 06-09-2023 ANES PRE-OP HNO ID: [id number] Author: Avery Torres MD Service: Anesthesiology Author Type: Physician Type: Anesthesia Preprocedure Evaluation Filed: 06/09/2023 11:25 AM Note Text: ANESTHESIOLOGY DAY OF SURGERY NOTE : 1970 Procedure Information Date/Time: 06/09/23 1145 Scheduled providers: Rui Orosco MD Procedure: SIGMOIDOSCOPY Location: [facility] Estimated body mass index is 31.62 kg/m? as calculated from the following: Height as of this encounter: 160 cm (5' 3). Weight as of this encounter: 81 kg [...] and consent discussed: yes. Patient / Responsible Constitution Party agrees to proceed: yes Patient / [...] June 09, 2023 TIME: 11:24 AM CSN: [id number] Normal [facility] CBC W Auto Differential pane l (Bld)on 06-09-2023 Basophils (Bld) [#/Vol] 0.04 10*3/uL Normal <0.11 [facility] Comment on above: Order Comment: Speci men Type: BLOOD SPECIMEN Ordering Facility: [facility] Address: [address] [place] [address] Performed By: #### 5 7021-8 #### [facility] CLIA [id number] [address] Basophils/100 WBC (Bld) 0.4 % Normal [facility] Comment on above: Order Comment: Speci men Type: BLOOD SPECIMEN Ordering Facility: [facility] Address: [address] [place] [address] Performed By: #### 5 7021-8 #### [facility] CLIA [id number] [address] Differential cell count method Nom (Bld) Auto Normal [facility] Comment on above: Order Comment: Speci men Type: BLOOD SPECIMEN Ordering Facility: [facility] Address: [address] [place] [address] Performed By: #### 5 7021-8 #### [facility] CLIA [id number] [address] [facility] Eosinophils (Bld) [#/Vol] 0.06 10*3/uL Normal <0.46 [facility] Comment on above: Order Comment: Speci men Type: BLOOD SPECIMEN Ordering Facility: [facility] Address: [address] [place] [address] Performed By: #### 5 7021-8 #### [facility] CLIA [id number] [address] Eosinophils/100 WBC (Bld) 0.6 % Normal [facility] Comment on above: Order Comment: Speci men Type: BLOOD SPECIMEN Ordering Facility: [facility] Address: [address] [place] [address] Performed By: #### 5 7021-8 #### [facility] CLIA [id number] [address] [place] Erythrocyte distribution width (RBC) [Ratio] 12.4 % Normal 11.5-15.0 [facility] Comment on above: Order Comment: Speci men Type: BLOOD SPECIMEN Ordering Facility: [facility] Address: [address] [place] [address] Performed By: #### 5 7021-8 #### [facility] CLIA [id number] [address] [place] Hematocrit (Bld) [Volume fraction] 39.0 % Normal 36.0-46.0 [facility] Comment on above: Order Comment: Speci men Type: BLOOD SPECIMEN Ordering Facility: [facility] Address: [address] [place] [address] Performed By: #### 5 7021-8 #### [facility] CLIA [id number] [address] [place] Hemoglobin (Bld) [Mass/Vol] 13.4 g/dL Normal 11.5-15.5 [facility] Comment on above: Order Comment: Speci men Type: BLOOD SPECIMEN Ordering Facility: [facility] Address: [address] [place] [address] Performed By: #### 5 7021-8 #### [facility] CLIA [id number] [address] [place] Immature granulocytes (Bld) [#/Vol] 0.04 10*3/uL Normal <0.10 [facility] Comment on above: Order Comment: Speci men Type: BLOOD SPECIMEN Ordering Facility: [facility] Address: [address] [place] [address] Performed By: #### 5 7021-8 #### [facility] CLIA [id number] [address] Immature granulocytes/100 WBC (Bld) 0.4 % Normal [facility] Comment on above: Order Comment: Speci men Type: BLOOD SPECIMEN Ordering Facility: [facility] Address: [address] [place] [address] Performed By: #### 5 7021-8 #### [facility] CLIA [id number] [address] [place] Lymphocytes (Bld) [#/Vol] 1.66 10*3/uL Normal 1.00-4.00 [facility] Comment on above: Order Comment: Speci men Type: BLOOD SPECIMEN Ordering Facility: [facility] Address: [address] [place] [address] Performed By: #### 5 7021-8 #### [facility] CLIA [id number] [address] Lymphocytes/100 WBC (Bld) 17.6 % Normal [facility] Comment on above: Order Comment: Speci men Type: BLOOD SPECIMEN Ordering Facility: [facility] Address: [address] [place] [address] Performed By: #### 5 7021-8 #### [facility] CLIA [id number] [address] MCH (RBC) [Entitic mass] 29.7 pg Normal 26.0-34.0 [facility] Comment on above: Order Comment: Speci men Type: BLOOD SPECIMEN Ordering Facility: [facility] Address: [address] [place] [address] Performed By: #### 5 7021-8 #### [facility] CLIA [id number] [address] MCHC (RBC) [Mass/Vol] 34.4 g/dL Normal 30.5-36.0 [facility] Comment on above: Order Comment: Speci men Type: BLOOD SPECIMEN Ordering Facility: [facility] Address: [address] [place] [address] Performed By: #### 5 7021-8 #### [facility] CLIA [id number] [address] MCV (RBC) [Entitic vol] 86.5 fL Normal 80.0-100.0 [facility] Comment on above: Order Comment: Speci men Type: BLOOD SPECIMEN Ordering Facility: [facility] Address: [address] [place] [address] Performed By: #### 5 7021-8 #### [facility] CLIA [id number] [address] Monocytes (Bld) [#/Vol] 0.71 10*3/uL Normal <0.87 [facility] Comment on above: Order Comment: Speci men Type: BLOOD SPECIMEN Ordering Facility: [facility] Address: [address] [place] [address] Performed By: #### 5 7021-8 #### [facility] CLIA [id number] [address] Monocytes/100 WBC (Bld) 7.5 % Normal [facility] Comment on above: Order Comment: Speci men Type: BLOOD SPECIMEN Ordering Facility: [facility] Address: [address] [place] [address] Performed By: #### 5 7021-8 #### [facility] CLIA [id number] [address] [place] Neutrophils (Bld) [#/Vol] 6.90 10*3/uL Normal 1.45-7.50 [facility] Comment on above: Order Comment: Speci men Type: BLOOD SPECIMEN Ordering Facility: [facility] Address: [address] [place] [address] Performed By: #### 5 7021-8 #### [facility] CLIA [id number] [address] [place] Neutrophils/100 WBC (Bld) 73.5 % Normal [facility] Comment on above: Order Comment: Speci men Type: BLOOD SPECIMEN Ordering Facility: [facility] Address: [address] [place] [address] Performed By: #### 5 7021-8 #### [facility] CLIA [id number] [address] [place] Nucleated RBC (Bld) [#/Vol] 10*3/uL Normal <0.01 [facility] Comment on above: Order Comment: Speci men Type: BLOOD SPECIMEN Order[facility] Facility: [facility] Address: [address] [place] [address] Performed By: #### 5 7021-8 #### [facility] CLIA [id number] [address] [place] Nucleated RBC/100 WBC (Bld) [Ratio] 0.0 /100 WBC Normal [facility] Comment on above: Order Comment: Speci men Type: BLOOD SPECIMEN Order[facility] Facility: [facility] Address: [address] [place] [address] Performed By: #### 5 7021-8 #### [facility] CLIA [id number] [address] Platelet mean volume (Bld) [Entitic vol] 9.2 fL Normal 9.0-12.7 [facility] Comment on above: Order Comment: Speci men Type: BLOOD SPECIMEN Order[facility] Facility: [facility] Address: [address] [place] [address] Performed By: #### 5 7021-8 #### [facility] CLIA [id number] [address] [place] Platelets (Bld) [#/Vol] 244 10*3/uL Normal 150-400 [facility] Comment on above: Order Comment: Speci men Type: BLOOD SPECIMEN Order[facility] Facility: [facility] Address: [address] [place] [address] Performed By: #### 5 7021-8 #### [facility] CLIA [id number] [address] [place] RBC (Bld) [#/Vol] 4.51 10*6/uL Normal 3.90-5.20 [facility] Comment on above: Order Comment: Speci men Type: BLOOD SPECIMEN Order[facility]: [facility] Address: [address] [place] [address] Performed By: #### 5 7021-8 #### [facility] CLIA [id number] [address] [place] WBC (Bld) [#/Vol] 9.41 10*3/uL Normal 3.70-11.00 [facility] Comment on above: Order Comment: Speci men Type: BLOOD SPECIMEN Order[facility]: [facility] Address: [address] [place] [address] Performed By: #### 5 7021-8 #### [facility] CLIA [id number] [address] [place] Flexible Sigmoidoscopyon Flexible sigmoidoscopy [facility] Gastrointestinal Endoscopy Patient Name: Frank Ventura Procedure Date: 06/09/2023 1:06 PM Date of : 1970 Admit Type: Inpatient Room: [place] [address] Gender: Female Note Status: Finalized Attending MD: Rui Orosco MD, [id number] Procedure: Flexible Sigmoidoscopy Indications: Hematochezia Providers: Rui [...] or Metamucil. Procedure Code(s): --- Professional --- 96188, Sigmoidoscopy, flexible; with biopsy, single or multiple --- Technical --- 96225, Sigmoidoscopy, flexible; with biopsy, single or multiple Diagnosis Code(s): --- Professional --- K63.3, Ulcer of intestine K92.1, Melena (includes Hematochezia) --- Technical --- K63.3, Ulcer of intestine K92.1, Melena (includes Hematochezia) CPT copyright 2020 [employer]. All rights reserved. The codes documented in this report are preliminary and upon plastics engineering teacher review may be revised to meet current compliance requirements. Attending Participation: I personally performed the entire procedure. Scope In: 1:20:04 PM Scope Out: 1:25:17 PM MD Rui Ba MD 06/09/2023 1:29:11 PM This report has been signed electronically by Rui Orosco MD Number of Addenda: 0 Note Initiated On: 06/09/2023 1:06 PM Normal [facility] Renal function 2000 panelon 06-09-2023 Albumin [Mass/Vol] 3.7 g/dL Low 3.9-4.9 [facility] Comment on above: Order Comment: Speci men Type: BLOOD SPECIMEN Ordering Facility: [facility] Address: [address] [place] [address] Performed By: #### 2 4362-6 #### [facility] CLIA [id number] [address] STATES OF [facility] Anion gap [Moles/Vol] 11 mmol/L Normal 9-18 [facility] Comment on above: Order Comment: Speci men Type: BLOOD SPECIMEN Ordering Facility: [facility] Address: [address] [place] [address] Performed By: #### 2 4362-6 #### [facility] CLIA [id number] [address] STATES OF [facility] Calcium [Mass/Vol] 9.3 mg/dL Normal 8.5-10.2 [facility] Comment on above: Order Comment: Speci men Type: BLOOD SPECIMEN Ordering Facility: [facility] Address: [address] [place] [address] Performed By: #### 2 4362-6 #### [facility] CLIA [id number] [address] [place] Chloride [Moles/Vol] 104 mmol/L Normal 97-105 [facility] Comment on above: Order Comment: Speci men Type: BLOOD SPECIMEN Ordering Facility: [facility] Address: [address] [place] [address] Performed By: #### 2 4362-6 #### [facility] CLIA [id number] [address] [place] CO2 [Moles/Vol] 23 mmol/L Normal 22-30 [facility] Comment on above: Order Comment: Speci men Type: BLOOD SPECIMEN Ordering Facility: [facility] Address: [address] [place] [address] Performed By: #### 2 4362-6 #### [facility] CLIA [id number] [address] Creatinine [Mass/Vol] 0.86 mg/dL Normal 0.58-0.96 [facility] Comment on above: Order Comment: Speci men Type: BLOOD SPECIMEN Ordering Facility: [facility] Address: [address] [place] [address] Performed By: #### 2 4362-6 #### [facility] CLIA [id number] [address] Creatinine and Glomerular filtration rate.predicted panel (S/P/Bld) 81 mL/min/1.73m??? Normal >=60 [facility] Comment on above: Order Comment: Speci men Type: BLOOD SPECIMEN Ordering Facility: [facility] Address: [address] [place] [address] Result Comment: Shannon mated Glomerular Filtration Rate [...] GFR. Performed By: #### 2 4362-6 #### [facility] CLIA [id number] [address] [place] [address] [place] Glucose [Mass/Vol] 97 mg/dL Normal 74-99 [facility] Comment on above: Order Comment: Don skelton Type: BLOOD SPECIMEN Ordering Facility: [facility] Address: [address] [place] [address] Result Comment: The [employer] (ADA) provides guidance for cutoff [...] Standards of Medical Care in Diabetes 2016, [employer]. Diabetes Care. 2016.39(Suppl 1). Performed By: #### 2 4362-6 #### [facility] CLIA [id number] 1 [place] [address] [place] Phosphate [Mass/Vol] 3.2 mg/dL Normal 2.7-4.8 [facility] Comment on above: Order Comment: Don skelton Type: BLOOD SPECIMEN Ordering Facility: [facility] Address: [address] [place] [address] Performed By: #### 2 4362-6 #### [facility] CLIA [id number] 1 [place] [address] [place] Potassium [Moles/Vol] 3.7 mmol/L Normal 3.7-5.1 [facility] Comment on above: Order Comment: Don skelton Type: BLOOD SPECIMEN Ordering Facility: [facility] Address: [address] [place] [address] Performed By: #### 2 4362-6 #### [facility] CLIA [id number] [address] Sodium [Moles/Vol] 138 mmol/L Normal 136-144 [facility] Comment on above: Order Comment: Speci men Type: BLOOD SPECIMEN Ordering Facility: [facility] Address: [address] [place] [address] Performed By: #### 2 4362-6 #### [facility] CLIA [id number] [address] [place] [address] [place] [facility] Urea nitrogen [Mass/Vol] 6 mg/dL Low 7-21 [facility] Comment on above: Order Comment: Speci men Type: BLOOD SPECIMEN Ordering Facility: [facility] Address: [address] [place] [address] Performed By: #### 2 4362-6 #### [facility] CLIA [id number] [address] [place] [address] SURGICAL PATHOLOGYon 023 CASE REPORT Normal [facility] Comment on above: Order Comment: Speci men Type: BLOOD SPECIMEN Ordering Facility: [facility] Address: [address] [place] [address] Result Comment: Surg ical Pathology Report Case: [id number] Authorizing Provider: Rui Orosco MD Collected: 06/09/2023 01:24 PM Ordering Location: [facility] Received: 06/11/2023 09:00 AM Pathologist: Magan Owens MD Specimen: COLON BIOPSY, r/o ischemia Performed By: #### 3 2693-4 #### [facility] CLIA [id number] [address] [place] [address] DIAGNOSIS COMMENT Normal [facility] Comment on above: Order Comment: Speci men Type: BLOOD SPECIMEN Ordering Facility: [facility] Address: [address] [place] [address] Result Comment: The findings are that of an ischemic-type pattern of injury. While this pattern characterizes ischemic colitis, it is not entirely specific, and can also be seen in the setting of pseudomembranous colitis and other infectious etiologies as well as drug effects (NSAIDS etc) and vasculitides/vasculopathies. Clinical and endoscopic correlation is recommended. Performed By: #### 3 2693-4 #### [facility] CLIA [id number] [address] [place] [address] FINAL DIAGNOSIS Normal [facility] Comment on above: Order Comment: Speci men Type: BLOOD SPECIMEN Ordering Facility: [facility] Address: [address] [place] [address] Result Comment: A. C olon, splenic flexure, biopsy: - Colonic mucosa with features of ischemic-type pattern of injury (see comment). Performed By: #### 3 2693-4 #### [facility] CLIA [id number] [address] [place] [address] FINAL PERFORMING LAB Normal [facility] Comment on above: Order Comment: Speci men Type: BLOOD SPECIMEN Ordering Facility: [facility] Address: [address] [place] [address] Result Comment: Diag nostic interpretation performed at [facility], [address] [place] [address] CLIA# [id number] Splitting Machine Operator Helper: Jaleel Posada M.D. Performed By: #### 3 2693-4 #### [facility] CLIA [id number] [address] [place] [address] GROSS DESCRIPTION A. COLON BIOPSY Normal [facility] Comment on above: Order Comment: Speci men Type: BLOOD SPECIMEN Ordering Facility: [facility] Address: [address] [place] [address] Result Comment: Rece ived in formalin labeled colon biopsy R/O ischemia is one piece of jones, soft tissue measuring 0.4 x 0.2 x 0.2 cm. Totally submitted in one cassette. Gross examination performed at [facility], [address] [place] [address] CLIA# [id number] [facility] June 11, 2023 10:34 AM Performed By: #### 3 2693-4 #### [facility] CLIA [id number] [address] [place] [address] [place] Basic metabolic 2000 panelon 06-08-2023 Anion gap [Moles/Vol] 8 mmol/L Low 9-18 [facility] Comment on above: Order Comment: Speci men Type: BLOOD SPECIMEN Ordering Facility: [facility] Address: [address] [place] [address] Performed By: #### 1 9123-9, 91485-8 #### [facility] CLIA [id number] 1 [place] [address] [place] Calcium [Mass/Vol] 8.7 mg/dL Normal 8.5-10.2 [facility] Comment on above: Order Comment: Speci men Type: BLOOD SPECIMEN Ordering Facility: [facility] Address: [address] [place] [address] Performed By: #### 1 9123-9, 52186-5 #### [facility] CLIA [id number] [address] [place] Chloride [Moles/Vol] 107 mmol/L High 97-105 [facility] Comment on above: Order Comment: Speci men Type: BLOOD SPECIMEN Ordering Facility: [facility] Address: [address] [place] [address] Performed By: #### 1 9123-9, 39293-8 #### [facility] CLIA [id number] [address] [place] CO2 [Moles/Vol] 25 mmol/L Normal 22-30 [facility] Comment on above: Order Comment: Speci men Type: BLOOD SPECIMEN Ordering Facility: [facility] Address: [address] [place] [address] Performed By: #### 1 9123-9, 80097-2 #### [facility] CLIA [id number] 1 [place] [address] [place] Creatinine [Mass/Vol] 0.85 mg/dL Normal 0.58-0.96 [facility] Comment on above: Order Comment: Speci men Type: BLOOD SPECIMEN Ordering Facility: [facility] Address: [address] [place] [address] Performed By: #### 1 9123-9, 56941-2 #### [facility] CLIA [id number] [address] [place] [address] Creatinine and Glomerular filtration rate.predicted panel (S/P/Bld) 83 mL/min/1.73m??? Normal >=60 [facility] Comment on above: Order Comment: Don skelton Type: BLOOD SPECIMEN Ordering Facility: [facility] Address: [address] [place] [address] Result Comment: Shannon mated Glomerular Filtration Rate [...] actual GFR. Performed By: #### 1 9123-9, 10478-3 #### [facility] CLIA [id number] [address] [place] [address] [place] Glucose [Mass/Vol] 94 mg/dL Normal 74-99 [facility] Comment on above: Order Comment: Don skelton Type: BLOOD SPECIMEN Ordering Facility: [facility] Address: [address] [place] [address] Result Comment: The [employer] (ADA) provides guidance for cutoff [...] Standards of Medical Care in Diabetes 2016, [employer]. Diabetes Care. 2016.39(Suppl 1). Performed By: #### 1 9123-9, 07998-1 #### [facility] CLIA [id number] [address] [place] Potassium [Moles/Vol] 3.6 mmol/L Low 3.7-5.1 [facility] Comment on above: Order Comment: Speci men Type: BLOOD SPECIMEN Ordering Facility: [facility] Address: [address] [place] [address] Performed By: #### 1 9123-9, 50544-7 #### [facility] CLIA [id number] [address] [place] Sodium [Moles/Vol] 140 mmol/L Normal 136-144 [facility] Comment on above: Order Comment: Speci men Type: BLOOD SPECIMEN Ordering Facility: [facility] Address: [address] [place] [address] Performed By: #### 1 9123-9, 63966-0 #### [facility] CLIA [id number] [address] [place] [address] [place] [facility] Urea nitrogen [Mass/Vol] 8 mg/dL Normal 7-21 [facility] Comment on above: Order Comment: Speci men Type: BLOOD SPECIMEN Ordering Facility: [facility] Address: [address] [place] [address] Performed By: #### 1 9123-9, 40808-5 #### [facility] CLIA [id number] [address] [place] [address] [place] CBC W Auto Differential pane l (Bld)on 06-08-2023 Basophils (Bld) [#/Vol] 0.04 10*3/uL Normal <0.11 [facility] Comment on above: Order Comment: Speci men Type: BLOOD SPECIMEN Ordering Facility: [facility] Address: [address] [place] [address] Performed By: #### 5 7021-8 #### [facility] CLIA [id number] [address] [place] [address] [place] Basophils/100 WBC (Bld) 0.5 % Normal [facility] Comment on above: Order Comment: Speci men Type: BLOOD SPECIMEN Ordering Facility: [facility] Address: [address] [place], [place] [address] Performed By: #### 5 7021-8 #### [facility] CLIA [id number] [address] Differential cell count method Nom (Bld) Auto Normal [facility] Comment on above: Order Comment: Speci men Type: BLOOD SPECIMEN Ordering Facility: [facility] Address: [address] [place] [address] Performed By: #### 5 7021-8 #### [facility] CLIA [id number] [address] Eosinophils (Bld) [#/Vol] 0.12 10*3/uL Normal <0.46 [facility] Comment on above: Order Comment: Speci men Type: BLOOD SPECIMEN Ordering Facility: [facility] Address: [address] [place] [address] Performed By: #### 5 7021-8 #### [facility] CLIA [id number] [address] Eosinophils/100 WBC (Bld) 1.4 % Normal [facility] Comment on above: Order Comment: Speci men Type: BLOOD SPECIMEN Ordering Facility: [facility] Address: [address] [place] [address] Performed By: #### 5 7021-8 #### [facility] CLIA [id number] [address] Erythrocyte distribution width (RBC) [Ratio] 12.8 % Normal 11.5-15.0 [facility] Comment on above: Order Comment: Speci men Type: BLOOD SPECIMEN Ordering Facility: [facility] Address: [address] [place] [address] Performed By: #### 5 7021-8 #### [facility] CLIA [id number] [address] Hematocrit (Bld) [Volume fraction] 39.0 % Normal 36.0-46.0 [facility] Comment on above: Order Comment: Speci men Type: BLOOD SPECIMEN Ordering Facility: [facility] Address: [address] [place] [address] Performed By: #### 5 7021-8 #### [facility] CLIA [id number] [address] [place] Hemoglobin (Bld) [Mass/Vol] 13.0 g/dL Normal 11.5-15.5 [facility] Comment on above: Order Comment: Speci men Type: BLOOD SPECIMEN Order[facility] Facility: [facility] Address: [address] [place] [address] Performed By: #### 5 7021-8 #### [facility] CLIA [id number] 1 [place] [address] [place] Immature granulocytes (Bld) [#/Vol] 10*3/uL Normal <0.10 [facility] Comment on above: Order Comment: Speci men Type: BLOOD SPECIMEN Order[facility] Facility: [facility] Address: [address] [place] [address] Performed By: #### 5 7021-8 #### [facility] CLIA [id number] [address] [place] Immature granulocytes/100 WBC (Bld) 0.2 % Normal [facility] Comment on above: Order Comment: Speci men Type: BLOOD SPECIMEN Ordering Facility: [facility] Address: [address] [place] [address] Performed By: #### 5 7021-8 #### [facility] CLIA [id number] 1 [place] [address] [place] Lymphocytes (Bld) [#/Vol] 2.40 10*3/uL Normal 1.00-4.00 [facility] Comment on above: Order Comment: Speci men Type: BLOOD SPECIMEN Order[facility]: [facility] Address: [address] [place] [address] Performed By: #### 5 7021-8 #### [facility] CLIA [id number] [address] [place] Lymphocytes/100 WBC (Bld) 28.8 % Normal [facility] Comment on above: Order Comment: Speci men Type: BLOOD SPECIMEN Order[facility]: [facility] Address: [address] [place] [address] Performed By: #### 5 7021-8 #### [facility] CLIA [id number] [address] MCH (RBC) [Entitic mass] 29.4 pg Normal 26.0-34.0 [facility] Comment on above: Order Comment: Speci men Type: BLOOD SPECIMEN Ordering Facility: [facility] Address: [address] [place] [address] Performed By: #### 5 7021-8 #### [facility] CLIA [id number] [address] MCHC (RBC) [Mass/Vol] 33.3 g/dL Normal 30.5-36.0 [facility] Comment on above: Order Comment: Speci men Type: BLOOD SPECIMEN Order[facility] Facility[facility] Address: [address] [place] [address] Performed By: #### 5 7021-8 #### [facility] CLIA [id number] [address] MCV (RBC) [Entitic vol] 88.2 fL Normal 80.0-100.0 [facility] Comment on above: Order Comment: Speci men Type: BLOOD SPECIMEN Order[facility] Facility: [facility] Address: [address] [place] [address] Performed By: #### 5 7021-8 #### [facility] CLIA [id number] [address] Monocytes (Bld) [#/Vol] 0.67 10*3/uL Normal <0.87 [facility] Comment on above: Order Comment: Speci men Type: BLOOD SPECIMEN Order[facility]: [facility] Address: [address] [place] [address] Performed By: #### 5 7021-8 #### [facility] CLIA [id number] [address] Monocytes/100 WBC (Bld) 8.0 % Normal [facility] Comment on above: Order Comment: Speci men Type: BLOOD SPECIMEN Order[facility] Facility: [facility] Address: [address] [place] [address] Performed By: #### 5 7021-8 #### [facility] CLIA [id number] [address] [place] Neutrophils (Bld) [#/Vol] 5.08 10*3/uL Normal 1.45-7.50 [facility] Comment on above: Order Comment: Speci men Type: BLOOD SPECIMEN Order[facility] Address: [address] [place] [address] Performed By: #### 5 7021-8 #### [facility] CLIA [id number] [address] Neutrophils/100 WBC (Bld) 61.1 % Normal [facility] Comment on above: Order Comment: Speci men Type: BLOOD SPECIMEN Order[facility] Address: [address] [place] [address] Performed By: #### 5 7021-8 #### [facility] CLIA [id number] [address] [place] Nucleated RBC (Bld) [#/Vol] 10*3/uL Normal <0.01 [facility] Comment on above: Order Comment: Speci men Type: BLOOD SPECIMEN Order[facility] Address: [address] [place] [address] Performed By: #### 5 7021-8 #### [facility] CLIA [id number] [address] [place] Nucleated RBC/100 WBC (Bld) [Ratio] 0.0 /100 WBC Normal [facility] Comment on above: Order Comment: Speci men Type: BLOOD SPECIMEN Order[facility] Address: [address] [place] [address] Performed By: #### 5 7021-8 #### [facility] CLIA [id number] [address] [place] [address] [place] Platelet mean volume (Bld) [Entitic vol] 9.2 fL Normal 9.0-12.7 [facility] Comment on above: Order Comment: Speci men Type: BLOOD SPECIMEN Order[facility] Address: [address] [place] [address] Performed By: #### 5 7021-8 #### [facility] CLIA [id number] [address] Platelets (Bld) [#/Vol] 281 10*3/uL Normal 150-400 [facility] Comment on above: Order Comment: Gonzalezi men Type: BLOOD SPECIMEN Order[facility] Facility: [facility] Address: [address] [place] [address] Performed By: #### 5 7021-8 #### [facility] CLIA [id number] [address] RBC (Bld) [#/Vol] 4.42 10*6/uL Normal 3.90-5.20 [facility] Comment on above: Order Comment: Speci men Type: BLOOD SPECIMEN Order[facility] Facility: [facility] Address: [address] [place] [address] Performed By: #### 5 7021-8 #### [facility] CLIA [id number] [address] WBC (Bld) [#/Vol] 8.33 10*3/uL Normal 3.70-11.00 [facility] Comment on above: Order Comment: Speci men Type: BLOOD SPECIMEN Order[facility]: [facility] Address: [address] [place] [address] Performed By: #### 5 7021-8 #### [facility] CLIA [id number] [address] CONSULTon 06-08-2023 CONSULT HNO ID: [id number] Author: Rui Orosco MD Service: Gastroenterology Author Type: Physician [...] (Src) 97.9 (Oral) Resp 18 Ht 5' 3 (1.60m) Wt 178 lb 8 oz (81.0kg) [...] Labs 06/08/23 0609 HCT 39.0 Recent Labs 06/07/23 2039 LACT 1.1 Recent Labs 06/08/23 0609 NA [...] MD Date: 06/08/2023 Time: 9:10 PM [facility] ED NOTEon 06-08-2023 ED NOTE HNO ID: [id number] Author: Aramis Izquierdo RN Service: Emergency Medicine Author Type: Registered Nurse Type: ED Notes Filed: 06/08/2023 1:55 AM Note Text: [facility] at bedside. Report given to transfer team. [facility] ED NOTE HNO ID: [id number] Author: Aramis Izquierdo RN Service: Emergency Medicine Author Type: Registered Nurse Type: ED Notes Filed: 06/08/2023 12:07 AM Note Text: Patient informed about the name of the medication(s), what the medication(s) is(are) for, and what to expect with/from med administration. Patient given opportunity to ask questions. Medication(s) include: Flagyl, Cipro Normal [facility] ED PROV NOTEon 06-08-2023 ED PROV NOTE HNO ID: [id number] Author: MALIKA LIEBERMAN MD Service: Emergency Medicine [...] Temp Temp src Resp SpO2 Weight Height 06/07/23191606/07/23191306/07/23191306/07/23191306/07/23191306/07/23191306/07/231913 12/17/23 1914 132/92 (!) 93 36.8 ?C (98.3 ?F) Temporal 18 97 % 79.4 kg (175 lb) 1.6 m (5' 3) Physical Exam Vitals and nursing note reviewed. Constitutional: General: She is not in acute distress. Appearance: She is well-developed. HENT: Head: Normocep (more content not included)... Normal [facility] HISTORY PHYSICALon HISTORY PHYSICAL HNO ID: [id number] Author: Colby Toth MD Service: General Internal Medicine Author Type: Physician Type: HANDP Filed: 06/08/2023 8:00 AM Note Text: DEPARTMENT OF HOSPITAL MEDICINE HISTORY AND PHYSICAL EXAM SERVICE DATE: 06/08/2023 SERVICE TIME: 5:32 AM Primary Care Physician: Nadine Banerjee MD NIGHT AND WEEKEND COVERAGE: From 7am - 7pm, please call Sound After 7pm, please call cross cover pager #[phone] Subjective CHIEF COMPLAINT: Abdominal pain, bloody stools [...] should also be considered given patient's history PAST MEDICAL HISTORY Diagnosis Date Abnormal glandular [...] PAST SURGICAL HISTORY Procedure Laterality Date APPENDECTOMY 2002 6 months later another surgery x 2 [...] (Src) 98.2 (Oral) Resp 18 Ht 5' 3 (1.60m) Wt 178 lb 8 oz (81.0kg) SpO2 95% LMP 12/01/2016 (more content not included)... Normal [facility] Magnesium SerPl-mCncon 06-08 Magnesium [Mass/Vol] 1.8 mg/dL Normal 1.7-2.3 [facility] Comment on above: Order Comment: Speci men Type: BLOOD SPECIMEN [facility] Facility[facility] Address: [address] [place] [address] Performed By: #### 1 9123-9, 38054-6 #### [facility] CLIA [id number] [address] [place] [address] [place] NUTRITIONon 06-08-2023 NUTRITION HNO ID: [id number] Author: Pricilla Lynch RD Service: Nutrition Therapy Author Type: Registered Dietitian Type: Nutrition Filed: 06/08/2023 12:11 PM Note Text: NUTRITION THERAPY INITIAL ASSESSMENT SERVICE DATE: 06/08/2023 SERVICE TIME: 12:02 Nutrition Assessment: Recommended Malnutrition Diagnosis: No Malnutrition Identified Nutrition Diagnosis: Problem: Suboptimal oral intake Related to: Acute illness As evidenced by: Pain, Nausea Estimated kilocalorie needs: 5687-1269 Calorie Calculation Method: 25-35 kcals/kg, [place] Body Weight Estimated protein needs (grams): 52-62 [...] estimated energy needs greater than 7 days (I think there's been a misunderstanding -my appetite is good) Current Nutrition Intake: NPO Current Intake Over time: (9H admit) Diet Orders (From admission, onward) Start Ordered 06/08/23 0545 DIET NPO START NOW Question Answer Comment NPO Restrictions EXCEPT MEDS NPO Restrictions EXCEPT SIPS OF WATER 06/08/23 0543 Anthropometrics: Height: 160 cm (5' 3) Weight: 81 kg (178 lb 8 oz) [...] 2023 TIME: 12:08 PM Normal [facility] Basic metabolic 2000 panelon 06-07-2023 Anion gap [Moles/Vol] 12 mmol/L Normal -18 [facility] Comment on above: Order Comment: Speci men Type: BLOOD SPECIMEN [facility] Facility[facility] Address: [address] [place], [place] [address] Performed By: #### 2 4321-2 #### [facility] CLIA [id number] [address] [place] [address] [place] Calcium [Mass/Vol] 9.5 mg/dL Normal 8.5-10.2 [facility] Comment on above: Order Comment: Speci men Type: BLOOD SPECIMEN [facility]ing [facility] Address: [address] [place] [address] Performed By: #### 2 4321-2 #### [facility] [place] [facility] CLIA [id number] [address] [place] [address] [place] Chloride [Moles/Vol] 102 mmol/L Normal 97-105 [facility] Comment on above: Order Comment: Speci men Type: BLOOD SPECIMEN [facility] Address: [address] [place] [address] Performed By: #### 2 4321-2 #### [facility] [place] [facility] CLIA [id number] [address] [place] [address] [place] CO2 [Moles/Vol] 25 mmol/L Normal 22-30 [facility] Comment on above: Order Comment: Speci men Type: BLOOD SPECIMEN [facility] Address: [address] [place] [address] Performed By: #### 2 4321-2 #### [facility] [place] [facility] CLIA [id number] [address] [place] [address] [place] Creatinine [Mass/Vol] 0.82 mg/dL Normal 0.58-0.96 [facility] Comment on above: Order Comment: Speci men Type: BLOOD SPECIMEN [facility] Address: [address] [place] [address] Performed By: #### 2 4321-2 #### [facility] [place] [facility] CLIA [id number] [address] [place] [address] [place] [facility] [place] Creatinine and Glomerular filtration rate.predicted panel (S/P/Bld) 86 mL/min/1.73m??? Normal >=60 [facility] Comment on above: Order Comment: Speci men Type: BLOOD SPECIMEN [facility] Address: [address] [place] [address] Result Comment: Shannon mated Glomerular Filtration Rate [...] GFR. Performed By: #### 2 4321-2 #### [facility] CLIA [id number] [address] [place] [address] [place] Glucose [Mass/Vol] 100 mg/dL High 74-99 [facility] Comment on above: Order Comment: Don skelton Type: BLOOD SPECIMEN Order[facility] Address: [address] [place] [address] Result Comment: The [place] Diabetes Association (ADA) provides guidance for cutoff [...] Standards of Medical Care in Diabetes 2016, [place] Diabetes Association. Diabetes Care. 2016.39(Suppl 1). Performed By: #### 2 4321-2 #### [facility] CLIA [id number] [address] [place] [address] [place] Potassium [Moles/Vol] 4.1 mmol/L Normal 3.7-5.1 [facility] Comment on above: Order Comment: Don skelton Type: BLOOD SPECIMEN [facility] Address: [address] [place], [place] [address] Performed By: #### 2 4321-2 #### [facility] CLIA [id number] [address] [place] [address] [place] Sodium [Moles/Vol] 139 mmol/L Normal 136-144 [facility] Comment on above: Order Comment: Speci men Type: BLOOD SPECIMEN Order[facility] Address: [address] [place] [address] Performed By: #### 2 4321-2 #### [facility] [place] [facility] CLIA [id number] [address] [place] [address] [place] Urea nitrogen [Mass/Vol] 12 mg/dL Normal 7-21 [facility] Comment on above: Order Comment: Speci men Type: BLOOD SPECIMEN [facility] Address: [address] [place] [address] Performed By: #### 2 4321-2 #### [facility] [place] [facility] CLIA [id number] [address] [place] [address] [place] CBC W Auto Differential pane l (Bld)on 06-07-2023 Basophils (Bld) [#/Vol] 0.04 10*3/uL Normal <0.11 [facility] Comment on above: Order Comment: Speci men Type: BLOOD SPECIMEN Order[facility] Address: [address] [place] [address] Performed By: #### 5 7021-8 #### [facility] [place] [facility] CLIA [id number] [address] [place] [address] [place] Basophils/100 WBC (Bld) 0.4 % Normal [facility] Comment on above: Order Comment: Speci men Type: BLOOD SPECIMEN [facility] Address: [address] [place] [address] Performed By: #### 5 7021-8 #### [facility] [place] [facility] CLIA [id number] [address] STATES OF [facility] Differential cell count method Nom (Bld) Auto Normal [facility] Comment on above: Order Comment: Speci men Type: BLOOD SPECIMEN Order[facility] Address: [address] [place] [address] Performed By: #### 5 7021-8 #### [facility] [place] [facility] CLIA [id number] [address] [place] [address] [place] Eosinophils (Bld) [#/Vol] 0.05 10*3/uL Normal <0.46 [facility] Comment on above: Order Comment: Speci men Type: BLOOD SPECIMEN Ordering Facility[facility] Address: [address] [place] [address] Performed By: #### 5 7021-8 #### [facility] [place] [facility] CLIA [id number] [address] [place] [address] [place] Eosinophils/100 WBC (Bld) 0.4 % Normal [facility] Comment on above: Order Comment: Speci men Type: BLOOD SPECIMEN Order[facility] Address: [address] [place] [address] Performed By: #### 5 7021-8 #### [facility] [place] [facility] CLIA [id number] [address] [place] [address] [place] Erythrocyte distribution width (RBC) [Ratio] 12.7 % Normal 11.5-15.0 [facility] Comment on above: Order Comment: Speci men Type: BLOOD SPECIMEN Order[facility] Address: [address] [place] [address] Performed By: #### 5 7021-8 #### [facility] [place] [facility] CLIA [id number] [address] [place] [address] [place] Hematocrit (Bld) [Volume fraction] 44.9 % Normal 36.0-46.0 [facility] Comment on above: Order Comment: Speci men Type: BLOOD SPECIMEN Order[facility] Address: [address] [place] [address] Performed By: #### 5 7021-8 #### [facility] [place] [facility] CLIA [id number] [address] [place] [address] [place] Hemoglobin (Bld) [Mass/Vol] 14.9 g/dL Normal 11.5-15.5 [facility] Comment on above: Order Comment: Speci men Type: BLOOD SPECIMEN [facility] Address: [address] [place] [address] Performed By: #### 5 7021-8 #### [facility] [place] [facility] CLIA [id number] [address] [place] [address] [place] Immature granulocytes (Bld) [#/Vol] 10*3/uL Normal <0.10 [facility] Comment on above: Order Comment: Speci men Type: BLOOD SPECIMEN [facility] Address: [address] [place] [address] Performed By: #### 5 7021-8 #### [facility] [place] [facility] CLIA [id number] [address] [place] [address] [place] Immature granulocytes/100 WBC (Bld) 0.1 % Normal [facility] Comment on above: Order Comment: Speci men Type: BLOOD SPECIMEN Order[facility] Address: [address] [place] [address] Performed By: #### 5 7021-8 #### [facility] [place] [facility] CLIA [id number] [address] [place] [address] [place] Lymphocytes (Bld) [#/Vol] 1.19 10*3/uL Normal 1.00-4.00 [facility] Comment on above: Order Comment: Speci men Type: BLOOD SPECIMEN Order[facility] Address: [address] [place] [address] Performed By: #### 5 7021-8 #### [facility] [place] [facility] CLIA [id number] [address] [place] Lymphocytes/100 WBC (Bld) 10.6 % Normal [facility] Comment on above: Order Comment: Speci men Type: BLOOD SPECIMEN Order[facility] Address: [address] [place] [address] Performed By: #### 5 7021-8 #### [facility] [place] [facility] CLIA [id number] [address] [place] [address] [place] MCH (RBC) [Entitic mass] 29.2 pg Normal 26.0-34.0 [facility] Comment on above: Order Comment: Speci men Type: BLOOD SPECIMEN Order[facility] Address: [address] [place] [address] Performed By: #### 5 7021-8 #### [facility] [place] [facility] CLIA [id number] [address] [place] [address] [place] MCHC (RBC) [Mass/Vol] 33.2 g/dL Normal 30.5-36.0 [facility] Comment on above: Order Comment: Speci men Type: BLOOD SPECIMEN Order[facility] Address: [address] [place] [address] Performed By: #### 5 7021-8 #### [facility] [place] [facility] CLIA [id number] [address] [place] [address] [place] MCV (RBC) [Entitic vol] 87.9 fL Normal 80.0-100.0 [facility] Comment on above: Order Comment: Speci men Type: BLOOD SPECIMEN Order[facility] Address: [address] [place] [address] Performed By: #### 5 7021-8 #### [facility] [place] [facility] CLIA [id number] [address] [place] [address] [place] Monocytes (Bld) [#/Vol] 0.52 10*3/uL Normal <0.87 [facility] Comment on above: Order Comment: Speci men Type: BLOOD SPECIMEN [facility] Address: [address] [place] [address] Performed By: #### 5 7021-8 #### [facility] [place] [facility] CLIA [id number] [address] [place] [address] [facility] Monocytes/100 WBC (Bld) 4.6 % Normal [facility] Comment on above: Order Comment: Speci men Type: BLOOD SPECIMEN [facility] Address: [address] [place] [address] Performed By: #### 5 7021-8 #### [facility] [place] [facility] CLIA [id number] [address] [place] Neutrophils (Bld) [#/Vol] 9.43 10*3/uL High 1.45-7.50 [facility] Comment on above: Order Comment: Speci men Type: BLOOD SPECIMEN [facility] Address: [address] [place] [address] Performed By: #### 5 7021-8 #### [facility] [place] [facility] CLIA [id number] [address] [place] [address] [place] Neutrophils/100 WBC (Bld) 83.9 % Normal [facility] Comment on above: Order Comment: Speci men Type: BLOOD SPECIMEN [facility] Address: [address] [place] [address] Performed By: #### 5 7021-8 #### [facility] [place] [facility] CLIA [id number] [address] [place] [address] [place] Nucleated RBC (Bld) [#/Vol] Normal [facility] Comment on above: Order Comment: Speci men Type: BLOOD SPECIMEN [facility] Address: [address] [place] [address] Performed By: #### 5 7021-8 #### [facility] [place] [facility] CLIA [id number] [address] [place] [address] [place] Nucleated RBC/100 WBC (Bld) [Ratio] Normal [facility] Comment on above: Order Comment: Speci men Type: BLOOD SPECIMEN [facility] Address: [address] [place] [address] Performed By: #### 5 7021-8 #### [facility] [place] [facility] CLIA [id number] [address] [place] [address] [place] Platelet mean volume (Bld) [Entitic vol] 9.0 fL Normal 9.0-12.7 [facility] Comment on above: Order Comment: Speci men Type: BLOOD SPECIMEN [facility] Address: [address] [place] [address] Performed By: #### 5 7021-8 #### [facility] [place] [facility] CLIA [id number] [address] [place] [address] [place] Platelets (Bld) [#/Vol] 319 10*3/uL Normal 150-400 [facility] Comment on above: Order Comment: Speci men Type: BLOOD SPECIMEN [facility] Address: [address] [place] [address] Performed By: #### 5 7021-8 #### [facility] CLIA [id number] [address] [place] [address] [place] RBC (Bld) [#/Vol] 5.11 10*6/uL Normal 3.90-5.20 [facility] Comment on above: Order Comment: Speci men Type: BLOOD SPECIMEN [facility] Address: [address] [place] [address] Performed By: #### 5 7021-8 #### [facility] CLIA [id number] [address] [place], [place] [address] [place] [address] WBC (Bld) [#/Vol] 11.24 10*3/uL High 3.70-11.00 [facility] Comment on above: Order Comment: Speci men Type: BLOOD SPECIMEN [facility] Address: [address] [place] [address] Performed By: #### 5 7021-8 #### [facility] CLIA [id number] [address] [place] [address] [facility] CTA ABDOMEN W IVCONon 2022 CTA ABDOMEN W IVCON * * *Final Report* * * DATE OF EXAM: Jun 07 2023 9:13PM [facility] CTA [facility] IVCON / [...] should also be considered given patient's history. Aircraft Mechanic: ELTON Transcribe Date/Time: Jun 07 2023 9:19P Dictated by : STACEY GUNDERSON MD This examination was interpreted and the report reviewed and electronically signed by: STACEY GUNDERSON MD on Jun 07 2023 9:29PM EST [id number] Normal [facility] ED NOTEon 06-07-2023 ED NOTE HNO ID: [id number] Author: Terry Thomas Service: Emergency Medicine Author Type: ? Type: ED Notes Filed: 06/08/2023 12:55 AM Note Text: Ambulated patient to bathroom. Pt gait steady and tolerated pain well. Pt urinated in bathroom and returned to bed and reported pain 6/10. Urine appeared yellow, clear, no odor or blood present. Normal [facility] ED NOTE HNO ID: [id number] Author: Aramis Izquierdo RN Service: Emergency Medicine Author Type: Registered Nurse Type: ED Notes Filed: 06/07/2023 8:57 PM Note Text: Patient informed about the name of the medication(s), what the medication(s) is(are) for, and what to expect with/from med administration. Patient given opportunity to ask questions. Medication(s) include: Lactated Ringers, Zofran, Morphine. Normal [facility] Lactate (Bld) [Moles/Vol]on 06-07-2023 Lactate [Moles/Vol] 1.1 mmol/L Normal 0.5-2.2 [facility] Comment on above: Order Comment: Speci men Type: BLOOD SPECIMEN Order[facility] Address: [address], [place] [id number] Performed By: #### 3 2693-4 #### [facility] CLIA [id number] [address] [place] [address] [facility] Absolute lymphocyte counton 02-14-2022 Lymphocytes Auto (Unsp spec) [#/Vol] 1.82 10*3/uL 0.83-4.51 [facility] Work Phone: Basophil percentageon 2021 Basophils/100 WBC (Bld) 0.8 % 0-1 [facility] Work Phone: Bilirubin [Mass/Vol] 0.30 mg/dL 0.20-1.00 [facility] Work Phone: Comment on above: For patients on eltr ombopag therapy, use of Dimension [place] TBIL is not recommended. Chloride [Moles/Vol] 104 mmol/L 98-107 [facility] Work Phone: Eosinophils/100 WBC (Bld) 1.6 % 0-5 [facility] Work Phone: Glucose [Mass/Vol] 83 mg/dL 74-106 [facility] Work Phone: Neutrophils (Bld) [#/Vol] 3.7 10*3/uL 2.0-7.7 [facility] Work Phone: Neutrophils/100 WBC (Bld) 59.5 % 47-70 [facility] Work Phone: Potassium [Moles/Vol] 3.9 mmol/L 3.5-5.1 [facility] Work Phone: Protein [Mass/Vol] 7.6 g/dL 6.4-8.2 [facility] Work Phone: [phone] Sodium [Moles/Vol] 138 mmol/L 136-145 [facility] Work Phone: 1 WBC (Bld) [#/Vol] 6.2 10*3/uL 4.4-11.0 [facility] Work Phone: [phone] Blood erythrocytes count (nu mber/volume)on 02-14-2022 RBC (Bld) [#/Vol] 5.14 10*6/uL 4.2-5.4 [facility] Work [facility]: [phone] Blood hemoglobin measurement (mass/volume)on 02-14-2022 Hemoglobin (Bld) [Mass/Vol] 14.7 g/dL 12.0-15.0 [facility] Work Phone: [phone] Blood lymphocytes/100 leukoc yteson 02-14-2022 Lymphocytes/100 WBC (Bld) 29.5 % 19-41 [facility] Work Phone: [phone] Blood monocytes/100 leukocyt eson 02-14-2022 Monocytes/100 WBC (Bld) 8.1 % 0-10 [facility] Work Phone: [phone] Blood platelet mean volumeon 02-14-2022 Platelet mean volume (Bld) [Entitic vol] 9.2 fL 6.2-12.0 [facility] Work Phone: [phone] Determination of erythrocyte mean corpuscular volume (MCV)on 02-14-2022 MCV (RBC) [Entitic vol] 87.2 fL 81-99 [facility] Work Phone: [phone] Erythrocyte sedimentation ra jess 02-14-2022 ESR (Bld) [Velocity] 25 mm/h 0-30 [facility] Work Phone: [phone] Hematocrit Auto (Bld) [Volum e fraction]on 02-14-2022 Hematocrit (Bld) [Volume fraction] 44.8 % 37-47 [facility] Work Phone: Laboratory - Chemistry and C hemistry - challengeon 02-14-2022 ALP [Catalytic activity/Vol] 129 U/L 45-117 [facility] Work Phone: [phone] ALT [Catalytic activity/Vol] 37 U/L 13-56 [facility] Work Phone: [phone] CK [Catalytic activity/Vol] 61 U/L 26-192 [facility] Work Phone: [phone] CO2 [Moles/Vol] 27.0 mmol/L 21.0-32.0 [facility] Work Phone: [phone] Globulin (S) [Mass/Vol] 4.0 g/dL 2.2-4.2 [facility] Work Phone: [phone] Urea nitrogen/Creatinine [Mass ratio] 17.7 mg/mg 10-20 [facility] Work Phone: [phone] Laboratory - Hematology and Cell countson 02-14-2022 Erythrocyte distribution width (RBC) [Entitic vol] 39.7 fL 35.1-43.9 [facility] Work Phone: [phone] Erythrocyte distribution width (RBC) [Ratio] 12.5 % 11.6-14.6 [facility] Work Phone: [phone] Immature granulocytes/100 WBC (Bld) 0.500 % 0.0-0.9 [facility] Work Phone: [phone] Comment on above: IG% - Immature Granu locytes (promyelocytes, myelocytes and metamyelocytes) > 1% indicates that a LEFT SHIFT is Present. MCH (RBC) [Entitic mass] 28.6 pg 27.0-32.0 [facility] Work Phone: [phone] Nucleated RBC/100 WBC (Bld) [Ratio] 0 % 0-5 [facility] Work Phone: [phone] MCHC Auto (RBC) [Mass/Vol]on 02-14-2022 MCHC (RBC) [Mass/Vol] 32.8 g/dL 32-36 [facility] Work Phone: [phone] No Panel Informationon 02-14 Estimated GFR (MDRD) Amer 91 mL/min >60 [facility] Work Phone: Comment on above: GFR Calc Estimated GFR (MDRD) Non-Af Amer 75 mL/min >60 [facility] Work Phone: Comment on above: Non- GFR Calc Platelets bldon 02-14-2022 Platelets (Bld) [#/Vol] 294 10*3/uL 150-450 [facility] Work Phone: Serum or plasma C reactive p rotein measurement (mass/volume)on 02-14-2022 CRP [Mass/Vol] 4.04 mg/L 0.0-3.0 [facility] Work Phone: Comment on above: C-Reactive Protein ( CRP) provides useful information for thediagnosis, therapy and monitoring of inflammatory processesand associated diseases. For the evaluation of Relative Riskfor Cardiovascular Disease, a High Sensitivity CRP (HSCRP)should be ordered. Serum or plasma albumin marnie urement (mass/volume)on 02-14-2022 Albumin [Mass/Vol] 3.6 g/dL 3.2-5.0 [facility] Work Phone: Serum or plasma albumin/glob ulin mass ratioon 02-14-2022 Albumin/Globulin [Mass ratio] 0.9 {ratio} 0.9-2.4 [facility] Work Phone: Serum or plasma calcium marnie urement (mass/volume)on 02-14-2022 Calcium [Mass/Vol] 9.3 mg/dL 8.5-10.1 [facility] Work Phone: Serum or plasma creatinine m easurement (mass/volume)on 02-14-2022 Creatinine [Mass/Vol] 0.85 mg/dL 0.55-1.02 [facility] Work Phone: Comment on above: The validity of the calculated GFR & GFRAA in patients over 70 years has not been determined. Clinical correlation is essential. Serum or plasma urea nitroge n measurement (mass/volume)on 02-14-2022 Urea nitrogen [Mass/Vol] 15 mg/dL 7-18 [facility] Work Phone: Thin prep Papanicolaou smear with manual screeningon 02-14-2022 Thin prep Papanicolaou smear with manual screening 21 U/L 15-37 [facility] Work Phone: Thin prep Papanicolaou smear with manual screening 7 5-15 [facility] Work Phone: Thin prep Papanicolaou smear with manual screening 148 U/L 84-246 [facility] Work Phone: COMPREHENSIVE METABOLIC PANE [place] 01-21-2022 Albumin [Mass/Vol] 4.1 g/dL Normal 3.6-5.1 [facility] Comment on above: Performed By: #### 1 0231, 7600 #### [facility] [address], [address] [place] [address] Ice Cream Chef: Lj Sanchez MD Albumin/Globulin [Mass ratio] 1.5 {ratio} Normal 1.0-2.5 [facility] Comment on above: Performed By: #### 1 0231, 7600 #### [facility] [place] [address] Ice Cream Chef: Lj Sanchez MD ALP [Catalytic activity/Vol] 110 U/L Normal 37-153 [facility] Comment on above: Performed By: #### 1 0231, 7600 #### [facility] [place] [address] Ice Cream Chef: Lj Sanchez MD ALT [Catalytic activity/Vol] 27 U/L Normal 6-29 [facility] Comment on above: Performed By: #### 1 0231, 7600 #### [facility] [place] [address] Ice Cream Chef: Lj Sanchez MD AST [Catalytic activity/Vol] 21 U/L Normal 10-35 [facility] Comment on above: Performed By: #### 1 0231, 7600 #### [facility] [place] [address] Ice Cream Chef: Lj Sanchez MD Bilirubin [Mass/Vol] 0.3 mg/dL Normal 0.2-1.2 [facility] Comment on above: Performed By: #### 1 023, 7600 #### [facility] [place] [address] Ice Cream Chef: Lj Sanchez MD BUN/CREATININE RATIO NOT APPLICABLE Normal 6-22 [facility] Comment on above: Performed By: #### 1 023, 7600 #### [facility] of [address], [address] [place] [address] Ice Cream Chef: Lj Sanchez MD Calcium [Mass/Vol] 9.5 mg/dL Normal 8.6-10.4 [facility] Comment on above: Performed By: #### 1 023, 7600 #### [facility] [place] [address] Ice Cream Chef: Lj Sanchez MD Chloride [Moles/Vol] 107 mmol/L Normal 98-110 [facility] Comment on above: Performed By: #### 1 023, 7600 #### [facility] [place] [address] Ice Cream Chef: Lj Sanchez MD CO2 [Moles/Vol] 26 mmol/L Normal 20-32 [facility] Comment on above: Performed By: #### 1 023, 7600 #### [facility] [place] [address] Ice Cream Chef: Lj Sanchez MD Creatinine [Mass/Vol] 0.74 mg/dL Normal 0.50-1.[address] [facility] Comment on above: Performed By: #### 1 0231, 7600 #### [facility] [place] [address] Ice Cream Chef: Lj Sanchez MD GFR/1.73 sq M.predicted among non-blacks MDRD (S/P/Bld) [Vol rate/Area] 98 mL/min/{1.73_m2} Normal > OR = 60 [facility] Comment on above: Result Comment: The eGFR is based on the CKD-EPI 2020 equation. To calculate the new eGFR from a previous Creatinine or Cystatin C result, go to https://www.kidney.org/professionals/ kdoqi/gfr%5Fcalculator Performed By: #### 1 0231, 7600 #### [facility] [address], [address] [place] [address] Ice Cream Chef: Lj Sanchez MD Globulin (S) [Mass/Vol] 2.7 g/dL Normal 1.9-3.7 [facility] Comment on above: Performed By: #### 1 023, 7600 #### [facility] [place] [address] Ice Cream Chef: Lj Sanchez MD Glucose [Mass/Vol] 89 mg/dL Normal 65-99 [facility] Comment on above: Result Comment: Fasting reference interval Performed By: #### 1 023, 7600 #### [facility] [place] [address] Ice Cream Chef: Lj Sanchez MD Potassium [Moles/Vol] 4.3 mmol/L Normal 3.5-5.3 [facility] Comment on above: Performed By: #### 1 023, 7600 #### [facility] [place] [address] Ice Cream Chef: Lj Sanchez MD Protein [Mass/Vol] 6.8 g/dL Normal 6.1-8.1 [facility] Comment on above: Performed By: #### 1 023, 7600 #### [facility] [place] [address] Ice Cream Chef: Lj Sanchez MD Sodium [Moles/Vol] 141 mmol/L Normal 135-146 [facility] Comment on above: Performed By: #### 1 023, 7600 #### [facility] [place] [address] Ice Cream Chef: Lj Sanchez MD Urea nitrogen [Mass/Vol] 18 mg/dL Normal 7-25 [facility] Comment on above: Performed By: #### 1 0231, 7600 #### [facility] [address], [address] [place] [address] Ice Cream Chef: Lj Sanchez MD LIPID PANEL, [facility] 080 Cholesterol [Mass/Vol] 309 mg/dL High <200 [facility] Comment on above: Performed By: #### 1 0231, 7600 #### [facility] [address], [address] [place] [address] Ice Cream Chef: Lj Sanchez MD Cholesterol in HDL [Mass/Vol] 61 mg/dL Normal > OR = 50 [facility] Comment on above: Performed By: #### 1 0231, 7600 #### [facility] [address], [address] [place] [address] Ice Cream Chef: Lj Sanchez MD Cholesterol in LDL [Mass/Vol] 211 mg/dL High [facility] Comment on above: Result Comment: LDL- C levels > or = 190 mg/dL may indicate familial hypercholesterolemia (FH). Clinical assessment and measurement of blood lipid levels should be considered for all first degree relatives of patients with an FH diagnosis. For questions about testing for familial hypercholesterolemia, please call [employer] [facility] at 1.069.GENE.INFO. Janell Sommer, et al. J National Lipid [...] equation in the estimation of LDL-C. Xavier DAWKINS et al. LOKESH. 2013;310(19): 5395-8345 (http://education.mParticle/faq/JYS546) Performed By: #### 1 0231, 0 #### [facility] [address], [address] [place] [address] Ice Cream Chef: Lj Sanchez MD Cholesterol.total/Chol esterol in HDL [Mass ratio] 5.1 {ratio} High <5.0 [facility] Comment on above: Performed By: #### 1 023, 9730 #### [facility] [place] [address] Ice Cream Chef: Lj Sanchez MD NON HDL CHOLESTEROL 248 [...] a therapeutic option. Performed By: #### 1 023, 0260 #### [facility] [place] [address] Ice Cream Chef: Lj Sanchez MD Triglyceride [Mass/Vol] 192 mg/dL High <150 [facility] Comment on above: Performed By: #### 1 023, 4680 #### [facility] [place] [address] Ice Cream Chef: Lj Sanchez MD Laboratory - Chemistry and C hemistry - challengeon 01-20-2022 Albumin [Mass/Vol] 4.1 g/dL Normal 3.6 - 5.1 g/dL [facility].; [employer] [facility], [facility]. Albumin/Globulin [Mass ratio] 1.5 {ratio} Normal 1.0 - 2.5 [facility].; [employer] [facility], [facility]. ALP [Catalytic activity/Vol] 110 U/L Normal 37 - 153 U/L [facility].; [employer] [facility] ALT [Catalytic activity/Vol] 27 U/L Normal 6 - 29 U/L [facility].; [employer] [facility], [facility] AST [Catalytic activity/Vol] 21 U/L Normal 10 - 35 U/L [facility].; [facility]. Bilirubin [Mass/Vol] 0.3 mg/dL Normal 0.2 - 1 .2 mg/dL [facility], [facility].; [facility]. Calcium [Mass/Vol] 9.5 mg/dL Normal 8.6 - 10. 4 mg/dL [facility].; [facility]. Chloride [Moles/Vol] 107 mmol/L Normal 98 - 11 0 mmol/L [facility], [facility].; [facility] Cholesterol [Mass/Vol] 309 mg/dL Abnormal [facility].; [facility], [facility] Cholesterol in HDL [Mass/Vol] 61 mg/dL Normal [facility], [facility].; [facility]. Cholesterol in LDL [Mass/Vol] 211 mg/dL Abnormal [facility], [facility].; [employer] [facility], [facility]. CO2 [Moles/Vol] 26 mmol/L Normal 20 - 32 mmol/L [facility].; [employer] [facility], [facility]. Creatinine [Mass/Vol] 0.74 mg/dL Normal 0.50 - 1.03 mg/dL [facility], [facility].; [employer] [facility], [facility]. GFR/1.73 sq M.predicted among non-blacks MDRD (S/P/Bld) [Vol rate/Area] 98 mL/min/{1.73_m2} Normal [facility], [facility].; [employer] [facility], [employer] Glucose [Mass/Vol] 89 mg/dL Normal 65 - 99 mg/dL [facility].; [employer] [facility], [facility]. Potassium [Moles/Vol] 4.3 mmol/L Normal 3.5 - 5.3 mmol/L [facility].; [employer] Protein [Mass/Vol] 6.8 g/dL Normal 6.1 - 8.1 g/dL [facility].; [employer] [facility], [employer] Sodium [Moles/Vol] 141 mmol/L Normal 135 - 146 mmol/L [facility].; [employer] Triglyceride [Mass/Vol] 192 mg/dL Abnormal [facility].; [employer] [facility]. Urea nitrogen [Mass/Vol] 18 mg/dL Normal 7 - 25 mg/dL [employer] No Panel Informationon 01-20 BUN/CREATININE RATIO NOT APPLICABLE Normal 6 - 22 [employer]. CHOL/HDLC RATIO 5.1 Abnormal [employer]. GLOBULIN 2.7 Normal 1.9 - 3.7 [employer]. NON HDL CHOLESTEROL 248 Abnormal [facility] [employer]. CBC (INCLUDES DIFF/PLT)on Basophils (Bld) [#/Vol] 0.077 10*3/uL Normal 0-200 [facility] Comment on above: Performed By: #### 6 399 #### [facility] [place] [address] Ice Cream Chef: Lj Sanchez MD Basophils/100 WBC (Bld) 1.4 % Normal [facility] Comment on above: Performed By: #### 6 399 #### [facility] [place] [address] Ice Cream Chef: Lj Sanchez MD Eosinophils (Bld) [#/Vol] 0.138 10*3/uL Normal 15-500 [facility] Comment on above: Performed By: #### 6 399 #### [facility] [place] [address] Ice Cream Chef: Lj Sanchez MD Eosinophils/100 WBC (Bld) 2.5 % Normal [facility] Comment on above: Performed By: #### 6 399 #### [facility] [place] [address] Ice Cream Chef: Lj Sanchez MD Erythrocyte distribution width (RBC) [Ratio] 12.6 % Normal 11.0-15.0 [facility] Comment on above: Performed By: #### 6 399 #### [facility] [place] [address] Ice Cream Chef: Lj Sanchez MD Hematocrit (Bld) [Volume fraction] 42.5 % Normal 35.0-45.0 [facility] Comment on above: Performed By: #### 6 399 #### [facility] [place] [address] Ice Cream Chef: Lj Sanchez MD Hemoglobin (Bld) [Mass/Vol] 14.1 g/dL Normal 11.7-15.5 [facility] Comment on above: Performed By: #### 6 399 #### [facility] [place] [address] Ice Cream Chef: Lj Sanchez MD Lymphocytes (Bld) [#/Vol] 1.876 10*3/uL Normal 850-3900 [facility] Comment on above: Performed By: #### 6 399 #### [facility] [place] [address] Ice Cream Chef: Lj Sanchez MD Lymphocytes/100 WBC (Bld) 34.1 % Normal [facility] Comment on above: Performed By: #### 6 399 #### [facility] [place] [address] Ice Cream Chef: Lj Sanchez MD MCH (RBC) [Entitic mass] 29.5 pg Normal 27.0-33.0 [facility] Comment on above: Performed By: #### 6 399 #### [facility] [place] [address] Ice Cream Chef: Lj Sanchez MD MCHC (RBC) [Mass/Vol] 33.2 g/dL Normal 32.0-36.[address] [facility] Comment on above: Performed By: #### 6 399 #### [facility] [place] [address] Ice Cream Chef: Lj Sanchez MD MCV (RBC) [Entitic vol] 88.9 fL Normal 80.0-100.0 [facility] Comment on above: Performed By: #### 6 399 #### [facility] [place] [address] Ice Cream Chef: Lj Sanchez MD Monocytes (Bld) [#/Vol] 0.506 10*3/uL Normal 200-950 [facility] Comment on above: Performed By: #### 6 399 #### [facility] [place] [address] Ice Cream Chef: Lj Sanchez MD Monocytes/100 WBC (Bld) 9.2 % Normal [facility] Comment on above: Performed By: #### 6 399 #### [facility] [place] [address] Ice Cream Chef: Lj Sanchez MD Neutrophils (Bld) [#/Vol] 2.904 10*3/uL Normal 9781-3747 [facility] Comment on above: Performed By: #### 6 399 #### [facility] [place] [address] Ice Cream Chef: Lj Sanchez MD Neutrophils/100 WBC (Bld) 52.8 % Normal [facility] Comment on above: Performed By: #### 6 399 #### [facility] [place] [address] Ice Cream Chef: Lj Sanchez MD Platelet mean volume (Bld) [Entitic vol] 9.4 fL Normal 7.5-12.5 [facility] Comment on above: Performed By: #### 6 399 #### [facility] [place] [address] Ice Cream Chef: Lj Sanchez MD Platelets (Bld) [#/Vol] 363 10*3/uL Normal 140-400 [facility] Comment on above: Performed By: #### 6 399 #### [facility] [place] [address] Ice Cream Chef: Lj Sanchez MD RBC (Bld) [#/Vol] 4.78 10*6/uL Normal 3.80-5.10 [facility] Comment on above: Performed By: #### 6 399 #### [facility] [address] [place] [address], [address] [place] [address] Ice Cream Chef: Lj Sanchez MD WBC (Bld) [#/Vol] 5.5 10*3/uL Normal 3.8-10.8 [facility] Comment on above: Performed By: #### 6 399 #### [facility] [address], [address] [place] [address] Ice Cream Chef: Lj Sanchez MD TSHon 01-03-2022 TSH Qn 2.13 m[IU]/L Normal [facility] Comment on above: Result Comment: Refe rence Range > or = 20 Years 0.40-4.50 Ranges First trimester 0.26-2.66 Second trimester 0.55-2.73 Third trimester 0.43-2.91 Performed By: #### 6 399 #### [facility] [address], [address] [place] [address] Ice Cream Chef: Lj Snachez MD Laboratory - Chemistry and C hemistry - challengeon 01-02-2022 TSH Qn 2.13 m[IU]/L Normal [employer] [facility] [employer] Laboratory - Hematology and Cell countson 01-02-2022 Basophils (Bld) [#/Vol] 0.077 10*3/uL Normal 0 - 200 {cells/uL} [employer] Basophils/100 WBC (Bld) 1.4 % Normal [employer] Eosinophils (Bld) [#/Vol] 0.138 10*3/uL Normal 15 - 500 {cells/uL} [employer] Eosinophils/100 WBC (Bld) 2.5 % Normal [employer] Erythrocyte distribution width (RBC) [Ratio] 12.6 % Normal 11.0 - 15.0 % [employer] Hematocrit (Bld) [Volume fraction] 42.5 % Normal 35.0 - 45.0 % [facility].; [facility], [facility] Hemoglobin (Bld) [Mass/Vol] 14.1 g/dL Normal 11.7 - 15.5 g/dL [facility].; [facility], [facility] Lymphocytes (Bld) [#/Vol] 1.876 10*3/uL Normal 850 - 3900 {cells/uL} [facility].; [facility], [facility] Lymphocytes/100 WBC (Bld) 34.1 % Normal [facility].; [facility], [facility]. MCH (RBC) [Entitic mass] 29.5 pg Normal 27.0 - 33.0 pg [facility].; [facility], [facility]. MCHC (RBC) [Mass/Vol] 33.2 g/dL Normal 32.0 - 36.0 g/dL [facility].; [facility]. MCV (RBC) [Entitic vol] 88.9 fL Normal 80.0 - 100.0 fL [facility].; [facility], [facility]. Monocytes (Bld) [#/Vol] 0.506 10*3/uL Normal 200 - 950 {cells/uL} [facility].; [facility]. Monocytes/100 WBC (Bld) 9.2 % Normal [facility].; [facility], [facility]. Neutrophils (Bld) [#/Vol] 2.904 10*3/uL Normal 1500 - 7800 {cells/uL} [facility].; [facility]. Neutrophils/100 WBC (Bld) 52.8 % Normal [facility].; [facility]. Platelet mean volume (Bld) [Entitic vol] 9.4 fL Normal 7.5 - 12.5 fL [facility].; [facility]. Platelets (Bld) [#/Vol] 363 10*3/uL Normal 140 - 400 [facility].; [facility]. RBC (Bld) [#/Vol] 4.78 10*6/uL Normal 3.80 - 5.10 {Million/u L} [facility]; [facility] WBC (Bld) [#/Vol] 5.5 10*3/uL Normal 3.8 - 10.8 [facility]; [facility] Absolute lymphocyte counton 12-27-2021 Lymphocytes Auto (Unsp spec) [#/Vol] 1.85 10*3/uL 0.83-4.51 [facility] Work Phone: Basophil percentageon 2021 Basophils/100 WBC (Bld) 0.5 % 0-1 [facility] Work Phone: Bilirubin [Mass/Vol] 0.40 mg/dL 0.20-1.00 [facility] Work Phone: Comment on above: For patients on eltr ombopag therapy, use of Dimension [place] TBIL is not recommended. Chloride [Moles/Vol] 109 mmol/L 98-107 [facility] Work Phone: Eosinophils/100 WBC (Bld) 0.9 % 0-5 [facility] Work Phone: Glucose [Mass/Vol] 101 mg/dL 74-106 [facility] Work Phone: Comment on above: Fasting Glucose resu lt from 100 to 125 mg/dL suggests IMPAIRED HOMEOSTASIS per A.D.A. criteria. Neutrophils (Bld) [#/Vol] 5.4 10*3/uL 2.0-7.7 [facility] Work Phone: Neutrophils/100 WBC (Bld) 67.7 % 47-70 [facility] Work Phone: Potassium [Moles/Vol] 3.8 mmol/L 3.5-5.1 [facility] Work Phone: Protein [Mass/Vol] 5.9 g/dL 6.4-8.2 [facility] Work Phone: Sodium [Moles/Vol] 140 mmol/L 136-145 [facility] Work Phone: WBC (Bld) [#/Vol] 8.0 10*3/uL 4.4-11.0 [facility] Work Phone: Blood erythrocytes count (nu mber/volume)on 12-27-2021 RBC (Bld) [#/Vol] 3.98 10*6/uL 4.2-5.4 [facility] Work Phone: Blood hemoglobin measurement (mass/volume)on 12-27-2021 Hemoglobin (Bld) [Mass/Vol] 11.6 g/dL 12.0-15.0 [facility] Work Phone: [phone] Blood lymphocytes/100 leukoc yteson 12-27-2021 Lymphocytes/100 WBC (Bld) 23.1 % 19-41 [facility] Work Phone: [phone] Blood monocytes/100 leukocyt eson 12-27-2021 Monocytes/100 WBC (Bld) 7.5 % 0-10 [facility] Work Phone: [phone] Blood platelet mean volumeon 12-27-2021 Platelet mean volume (Bld) [Entitic vol] 9.0 fL 6.2-12.0 [facility] Work Phone: Determination of erythrocyte mean corpuscular volume (MCV)on 12-27-2021 MCV (RBC) [Entitic vol] 88.2 fL 81-99 [facility] Work Phone: [phone] Hematocrit Auto (Bld) [Volum e fraction]on 12-27-2021 Hematocrit (Bld) [Volume fraction] 35.1 % 37-47 [facility] Work Phone: [phone] Laboratory - Chemistry and C hemistry - challengeon 12-27-2021 ALP [Catalytic activity/Vol] 129 U/L 45-117 [facility] Work Phone: [phone] ALT [Catalytic activity/Vol] 68 U/L 13-56 [facility] Work Phone: [phone] CO2 [Moles/Vol] 26.0 mmol/L 21.0-32.0 [facility] Work Phone: [phone] Globulin (S) [Mass/Vol] 3.1 g/dL 2.2-4.2 [facility] Work Phone: [phone] Urea nitrogen/Creatinine [Mass ratio] 11.3 mg/mg 10-20 [facility] Work Phone: [phone] Laboratory - Hematology and Cell countson 12-27-2021 Erythrocyte distribution width (RBC) [Entitic vol] 42.1 fL 35.1-43.9 [facility] Work Phone: [phone] Erythrocyte distribution width (RBC) [Ratio] 13.0 % 11.6-14.6 [facility] Work Phone: [phone] Immature granulocytes/100 WBC (Bld) 0.300 % 0.0-0.9 [facility] Work Phone: [phone] Comment on above: IG% - Immature Granu locytes (promyelocytes, myelocytes and metamyelocytes) > 1% indicates that a LEFT SHIFT is Present. MCH (RBC) [Entitic mass] 29.1 pg 27.0-32.0 [facility] Work Phone: [phone] Nucleated RBC/100 WBC (Bld) [Ratio] 0 % 0-5 [facility] Work Phone: [phone] MCHC Auto (RBC) [Mass/Vol]on 12-27-2021 MCHC (RBC) [Mass/Vol] 33.0 g/dL 32-36 [facility] Work Phone: [phone] Panel Informationon 12-27 Troponin I High Sensitivity 3 pg/mL 3.0-54.0 [facility] Work Phone: [phone] Comment on above: Please Note: New Saadia t Units and Gender Specific Reference Ranges. For more information see Policy Stat Procedure [place] High Sensitivity Troponin (TNIH) and attachments. Estimated Creatinine Clearance Calc 68.82 ml/min [facility] Work Phone: [phone] Estimated GFR (MDRD) Amer 98 mL/min >60 [facility] Work Phone: [phone] Comment on above: GFR Calc Estimated GFR (MDRD) Non-Af Amer 81 mL/min >60 [facility] Work Phone: Comment on above: Non- GFR Calc Platelets bldon 12-27-2021 Platelets (Bld) [#/Vol] 238 10*3/uL 150-450 [facility] Work Phone: Serum or plasma albumin marnie urement (mass/volume)on 12-27-2021 Albumin [Mass/Vol] 2.8 g/dL 3.2-5.0 [facility] Work Phone: Serum or plasma albumin/glob ulin mass ratioon 12-27-2021 Albumin/Globulin [Mass ratio] 0.9 {ratio} 0.9-2.4 [facility] Work Phone: Serum or plasma calcium marnie urement (mass/volume)on 12-27-2021 Calcium [Mass/Vol] 8.8 mg/dL 8.5-10.1 [facility] Work Phone: Serum or plasma creatinine m easurement (mass/volume)on 12-27-2021 Creatinine [Mass/Vol] 0.80 mg/dL 0.55-1.02 [facility] Work Phone: Comment on above: The validity of the calculated GFR & GFRAA in patients over 70 years has not been determined. Clinical correlation is essential. Serum or plasma urea nitroge n measurement (mass/volume)on 12-27-2021 Urea nitrogen [Mass/Vol] 9 mg/dL 7-18 [facility] Work Phone: [phone] Thin prep Papanicolaou smear with manual screeningon 12-27-2021 Thin prep Papanicolaou smear with manual screening 26 U/L 15-37 [facility] Work Phone: [phone] Thin prep Papanicolaou smear with manual screening 5 5-15 [facility] Work Phone: [phone] Absolute lymphocyte counton 12-26-2021 Lymphocytes Auto (Unsp spec) [#/Vol] 1.77 10*3/uL 0.83-4.51 [facility] Work Phone: Basophil percentageon 2021 Basophils/100 WBC (Bld) 0.7 % 0-1 [facility] Work Phone: Bilirubin [Mass/Vol] 0.20 mg/dL 0.20-1.00 [facility] Work Phone: Comment on above: For patients on eltr ombopag therapy, use of Dimension [place] TBIL is not recommended. Chloride [Moles/Vol] 108 mmol/L 98-107 [facility] Work Phone: Eosinophils/100 WBC (Bld) 0.4 % 0-5 [facility] Work Phone: Glucose [Mass/Vol] 124 mg/dL 74-106 [facility] Work Phone: Comment on above: Fasting Glucose resu lt from 100 to 125 mg/dL suggests IMPAIRED HOMEOSTASIS per A.D.A. criteria. Neutrophils (Bld) [#/Vol] 7.4 10*3/uL 2.0-7.7 [facility] Work Phone: Neutrophils/100 WBC (Bld) 73.5 % 47-70 [facility] Work Phone: Potassium [Moles/Vol] 4.3 mmol/L 3.5-5.1 [facility] Work Phone: Protein [Mass/Vol] 7.3 g/dL 6.4-8.2 [facility] Work Phone: Sodium [Moles/Vol] 142 mmol/L 136-145 [facility] Work Phone: WBC (Bld) [#/Vol] 10.1 10*3/uL 4.4-11.0 [facility] Work Phone: Blood erythrocytes count (nu mber/volume)on 12-26-2021 RBC (Bld) [#/Vol] 4.67 10*6/uL 4.2-5.4 [facility] Work Phone: Blood hemoglobin measurement (mass/volume)on 12-26-2021 Hemoglobin (Bld) [Mass/Vol] 13.9 g/dL 12.0-15.0 [facility] Work Phone: Blood lymphocytes/100 leukoc yteson 12-26-2021 Lymphocytes/100 WBC (Bld) 17.6 % 19-41 [facility] Work Phone: Blood monocytes/100 leukocyt eson 12-26-2021 Monocytes/100 WBC (Bld) 7.3 % 0-10 [facility] Work Phone: Blood platelet mean volumeon 12-26-2021 Platelet mean volume (Bld) [Entitic vol] 9.4 fL 6.2-12.0 [facility] Work Phone: Determination of erythrocyte mean corpuscular volume (MCV)on 12-26-2021 MCV (RBC) [Entitic vol] 89.5 fL 81-99 [facility] Work Phone: Hematocrit Auto (Bld) [Volum e fraction]on 12-26-2021 Hematocrit (Bld) [Volume fraction] 41.8 % 37-47 [facility] Work Phone: Laboratory - Chemistry and C hemistry - challengeon 12-26-2021 ALP [Catalytic activity/Vol] 169 U/L 45-117 [facility] Work Phone: ALT [Catalytic activity/Vol] 112 U/L 13-56 [facility] Work Phone: CO2 [Moles/Vol] 26.0 mmol/L 21.0-32.0 [facility] Work Phone: Globulin (S) [Mass/Vol] 3.7 g/dL 2.2-4.2 [facility] Work Phone: Lipase [Catalytic activity/Vol] 116 U/L 73-393 [facility] Work Phone: Urea nitrogen/Creatinine [Mass ratio] 16.2 mg/mg 10-20 [facility] Work Phone: Laboratory - Hematology and Cell countson 12-26-2021 Erythrocyte distribution width (RBC) [Entitic vol] 42.3 fL 35.1-43.9 [facility] Work Phone: Erythrocyte distribution width (RBC) [Ratio] 13.0 % 11.6-14.6 [facility] Work Phone: [phone] Immature granulocytes/100 WBC (Bld) 0.500 % 0.0-0.9 [facility] Work Phone: [phone] Comment on above: IG% - Immature Granu locytes (promyelocytes, myelocytes and metamyelocytes) > 1% indicates that a LEFT SHIFT is Present. MCH (RBC) [Entitic mass] 29.8 pg 27.0-32.0 [facility] Work Phone: Nucleated RBC/100 WBC (Bld) [Ratio] 0 % 0-5 [facility] Work Phone: [phone] MCHC Auto (RBC) [Mass/Vol]on 12-26-2021 MCHC (RBC) [Mass/Vol] 33.3 g/dL 32-36 [facility] Work Phone: No Panel Informationon 12-26 Estimated Creatinine Clearance Calc 56.18 ml/min [facility] Work Phone: [phone] Estimated GFR (MDRD) Amer 76 mL/min >60 [facility] Work Phone: [phone] Comment on above: GFR Calc Estimated GFR (MDRD) Non-Af Amer 63 mL/min >60 [facility] Work Phone: [phone] Comment on above: Non- GFR Calc Platelets bldon 12-26-2021 Platelets (Bld) [#/Vol] 298 10*3/uL 150-450 [facility] Work Phone: [phone] Serum or plasma albumin marnie urement (mass/volume)on 12-26-2021 Albumin [Mass/Vol] 3.6 g/dL 3.2-5.0 [facility] Work Phone: [phone] Serum or plasma albumin/glob ulin mass ratioon 12-26-2021 Albumin/Globulin [Mass ratio] 1.0 {ratio} 0.9-2.4 [facility] Work Phone: Serum or plasma calcium marnie urement (mass/volume)on 12-26-2021 Calcium [Mass/Vol] 9.5 mg/dL 8.5-10.1 [facility] Work Phone: Serum or plasma creatinine m easurement (mass/volume)on 12-26-2021 Creatinine [Mass/Vol] 0.98 mg/dL 0.55-1.02 [facility] Work Phone: Comment on above: The validity of the calculated GFR & GFRAA in patients over 70 years has not been determined. Clinical correlation is essential. Serum or plasma urea nitroge n measurement (mass/volume)on 12-26-2021 Urea nitrogen [Mass/Vol] 16 mg/dL 7-18 [facility] Work Phone: Thin prep Papanicolaou smear with manual screeningon 12-26-2021 Thin prep Papanicolaou smear with manual screening 43 U/L 15-37 [facility] Work Phone: Thin prep Papanicolaou smear with manual screening 8 5-15 [facility] Work Phone: Laboratory - Chemistry and C hemistry - challengeon 07-30-2020 Albumin [Mass/Vol] 4.1 g/dL Normal 3.6 - 5.1 g/dL [facility], [facility].; [facility], [facility]. Albumin/Globulin [Mass ratio] 2.0 {ratio} Normal 1.0 - 2.5 [facility], [facility].; [facility], [facility]. ALP [Catalytic activity/Vol] 86 U/L Normal 31 - 125 U/L [facility], [facility].; [employer] [facility], [facility]. ALT [Catalytic activity/Vol] 17 U/L Normal 6 - 29 U/L [facility], [facility].; [employer] [facility], [facility]. AST [Catalytic activity/Vol] 16 U/L Normal 10 - 35 U/L [facility], [facility].; [employer] [facility], [facility]. Bilirubin [Mass/Vol] 0.6 mg/dL Normal 0.2 - 1 .2 mg/dL [facility], [facility].; [employer] [facility]. Calcium [Mass/Vol] 9.3 mg/dL Normal 8.6 - 10. 2 mg/dL [facility], [facility].; [facility], [facility]. Chloride [Moles/Vol] 105 mmol/L Normal 98 - 11 0 mmol/L [facility], [facility].; [facility] Cholesterol [Mass/Vol] 242 mg/dL Abnormal [facility], [facility].; [facility], [facility] Cholesterol in HDL [Mass/Vol] 49 mg/dL Abnormal [facility], [facility].; [facility] Cholesterol in LDL [Mass/Vol] 164 mg/dL Abnormal [facility], [facility].; [facility], [facility]. CO2 [Moles/Vol] 25 mmol/L Normal 20 - 32 mmol/L [facility].; [facility], [facility]. Creatinine [Mass/Vol] 0.68 mg/dL Normal 0.50 - 1.10 mg/dL [facility], [facility].; [facility], [facility]. GFR/1.73 sq M.predicted among blacks MDRD (S/P/Bld) [Vol rate/Area] 119 mL/min/{1.73_m2} Normal [facility], [facility].; [facility], [facility]. Glucose [Mass/Vol] 92 mg/dL Normal 65 - 99 mg/dL [facility], [facility].; [employer] [facility], [employer] Potassium [Moles/Vol] 4.0 mmol/L Normal 3.5 - 5.3 mmol/L [facility], [facility].; [employer] [facility], [facility] Protein [Mass/Vol] 6.2 g/dL Normal 6.1 - 8.1 g/dL [facility], [facility].; [employer] [facility], [facility]. Sodium [Moles/Vol] 137 mmol/L Normal 135 - 146 mmol/L [facility], [facility].; [employer] [facility], [facility] Triglyceride [Mass/Vol] 148 mg/dL Normal [facility], [facility].; [employer] [facility], [facility] TSH Qn 1.52 m[IU]/L Normal [facility], [facility].; [employer] [facility], [facility] Urea nitrogen [Mass/Vol] 10 mg/dL Normal 7 - 25 mg/dL [facility].; [facility], [facility] Laboratory - Hematology and Cell countson 07-30-2020 Basophils (Bld) [#/Vol] 0.089 10*3/uL Normal 0 - 200 {cells/uL} [facility].; [facility], [facility] Basophils/100 WBC (Bld) 1.9 % Normal [facility].; [facility], [facility] Eosinophils (Bld) [#/Vol] 0.141 10*3/uL Normal 15 - 500 {cells/uL} [facility].; [employer] [facility] Eosinophils/100 WBC (Bld) 3.0 % Normal [facility].; [employer] [facility] Erythrocyte distribution width (RBC) [Ratio] 12.5 % Normal 11.0 - 15.0 % [facility].; [employer], [facility] Hematocrit (Bld) [Volume fraction] 43.6 % Normal 35.0 - 45.0 % [facility].; [employer], [facility] Hemoglobin (Bld) [Mass/Vol] 14.7 g/dL Normal 11.7 - 15.5 g/dL [facility].; [employer] [facility], [facility]. Lymphocytes (Bld) [#/Vol] 1.438 10*3/uL Normal 850 - 3900 {cells/uL} [facility].; [employer] [facility] Lymphocytes/100 WBC (Bld) 30.6 % Normal [facility].; [employer] [facility] MCH (RBC) [Entitic mass] 29.9 pg Normal 27.0 - 33.0 pg [employer] [facility].; [employer], [facility]. MCHC (RBC) [Mass/Vol] 33.7 g/dL Normal 32.0 - 36.0 g/dL [facility].; [employer], [facility]. MCV (RBC) [Entitic vol] 88.8 fL Normal 80.0 - 100.0 fL [facility].; [employer], [facility] Monocytes (Bld) [#/Vol] 0.381 10*3/uL Normal 200 - 950 {cells/uL} [employer] [facility].; [facility]. Monocytes/100 WBC (Bld) 8.1 % Normal [facility].; [facility] Neutrophils (Bld) [#/Vol] 2.651 10*3/uL Normal 1500 - 7800 {cells/uL} [facility].; [employer] [facility] Neutrophils/100 WBC (Bld) 56.4 % Normal [facility].; [employer] [facility] Platelet mean volume (Bld) [Entitic vol] 10.1 fL Normal 7.5 - 12.5 fL [facility].; [employer] [facility] Platelets (Bld) [#/Vol] 293 10*3/uL Normal 140 - 400 [facility]; [employer] [facility] RBC (Bld) [#/Vol] 4.91 10*6/uL Normal 3.80 - 5.10 {Million/u L} [facility]; [employer] [facility] WBC (Bld) [#/Vol] 4.7 10*3/uL Normal 3.8 - 10.8 [facility].; [employer] [facility] No Panel Informationon 07-30 BUN/CREATININE RATIO NOT APPLICABLE Normal 6 - 22 [facility]; [employer] [facility] CHOL/HDLC RATIO 4.9 Normal [facility]; [employer] [facility] eGFR NON-AFR. CYPRIOT 103 Normal [facility]; [employer] [facility] GLOBULIN 2.1 Normal 1.9 - 3.7 [facility].; [employer] [facility] NON HDL CHOLESTEROL 193 Abnormal [facility].; [employer] [facility] VITAMIN D,25-OH,TOTAL,IA 18 ng/mL Abnormal 30 - 100 ng/mL [employer] [facility]; [employer] [facility]. Laboratory - Chemistry and C hemistry - challengeon 07-03-2020 Bilirubin Ql (U) small Abnormal [facility].; [employer] Ketones Ql (U) Negative Normal [employer] [facility].; [employer]. pH (U) 5.5 [pH] Normal [employer]; [employer] Specific gravity (U) [Rel density] 1.030 Abnormal [employer].; [employer] Urobilinogen Qn (U) .2 mg/dL Normal [facility] [employer] [facility].; [employer]. Laboratory - Hematology and Cell countson 07-03-2020 Hemoglobin Ql (U) trace, hemolyzed Abnormal H [facility] ERUshahidi.; [employer]. Laboratory - Specimen inform ationon 07-03-2020 Appearance (U) Clear Normal [employer]; [employer] Color (U) Yellow Normal [employer]; [employer]. Laboratory - Urinalysison Glucose Test strip (U) [Mass/Vol] Negative Normal [employer].; [employer] Leukocyte esterase Test strip Ql (U) Negative Normal [employer]. Nitrite Ql (U) Negative Normal [employer].; [employer]. Protein Ql (U) trace Normal [employer]; [employer] No Panel Informationon 07-03 CULTURE, URINE, ROUTINE SEE NOTE Normal [employer].; [employer]. CBC/PLATELET & AUTO DIFFEREN TIALon 03-27-2017 Basophils Auto #/vol (Bld) 0.1 10*3/uL Normal 0.0-0.1 [facility] Basophils/100 WBC Auto (Bld) 1 % Normal 0-1 [facility] CBC/PLATELET & AUTO DIFFERENTIAL 0.0 10*3/uL Normal - [facility] Comment on above: Result Comment: er Eosinophils 0.2 10*3/uL Normal 0.0-0.4 [facility] Eosinophils/100 leukocytes 2 % Normal 0-5 [facility] Erythrocyte distribution width Auto Ratio (RBC) 12.0 % Normal 11.7-14.4 [facility] Erythrocytes (RBC) 4.48 10*6/uL Normal 4.20-5.40 [facility] Hematocrit (HCT) 40.4 % Normal 37.0-47.0 [facility] Hemoglobin mass conc (Bld) 14.1 g/dL Normal 11.5-16.0 [facility] Lymphocytes 2.3 10*3/uL Normal 0.9-2.5 [facility] Lymphocytes/100 leukocytes 26 % Normal 13-44 [facility] MCH 31.5 pg High 27.0-31.0 [facility] MCHC mass conc (RBC) 34.9 g/dL Normal 31.5-36.0 [facility] MCV 90.2 fL Normal 82.0-101.0 [facility] Monocytes 0.7 10*3/uL Normal 0.1-1.0 [facility] Monocytes/100 leukocytes 8 % Normal 5-9 [facility] Neutrophils 5.6 10*3/uL Normal 2.1-6.5 [facility] Neutrophils/100 leukocytes 62 % Normal 39-75 [facility] Nucleated erythrocytes 0 % Normal - [facility] Platelet mean volume (PMV) 9.1 fL Normal 8.2-11.4 [facility] Platelets 274.0 10*3/uL Normal 130.0-400. 0 [facility] WBC (Leukocytes) 8.9 10*3/uL Normal 4.4-10.2 [facility] COMPREHENSIVE METABOLIC PANE [place] 03-27-2017 Alanine aminotransferase (ALT) 18 U/L Normal 14-59 [facility] Albumin 3.7 g/dL Normal 3.4-5.0 [facility] Albumin/Globulin Ratio 1.1 mg/dL Normal - [facility] Alkaline phosphatase (ALP) 104 U/L Normal 46-116 [facility] Anion gap 10.8 mmol/L Normal - [facility] Aspartate aminotransferase (AST) 17 U/L Normal 15-37 [facility] Bilirubin Ql (U) 0.24 mg/dL Normal 0.20-1.00 [facility] BUN/Creatinine Ratio 22.1 mg/mg Normal - [facility] Calcium 9.1 mg/dL Normal 8.5-10.1 [facility] Chloride 104 mmol/L Normal 98-107 [facility] CO2 28.2 mmol/L Normal 21.0-32.0 [facility] COMPREHENSIVE METABOLIC PANEL SEE NOTE Normal - [facility] Comment on above: Result Comment: er Creatinine 0.77 mg/dL Normal 0.55-1.02 [facility] eGFR (non-black) mL/min/{1.73_m2} Normal >60 [facility] Globulin 3.3 g/dL Normal - [facility] Glucose mass conc 102 mg/dL Normal 70-110 [facility] Osmolality 279 mosm/kg Normal - [facility] Potassium molar conc 4.0 mmol/L Normal 3.5-5.1 [facility] Protein 7.0 g/dL Normal 6.4-8.2 [facility] Sodium 139 mmol/L Normal 136-145 [facility] Urea nitrogen 17 mg/dL Normal 7-[address] [facility] [address] ABD PELVIS Won 03-27-2017 CT [...] By: Iris Valeigned On: 03/27/2017 05:16 Normal [facility] LIPASEon 03-27-2017 Lipase 118 U/L Normal 73-393 [facility] URINALYSIS W/ MICROSCOPIC if indicatedon 03-27-2017 Bilirubin Ql (U) Negative Normal Negative [facility] Blood Negative Normal Negative [facility] Blood product type Clean catch Normal - [facility] Glucose mass conc Normal Normal Normal [facility] Protein Negative Normal Negative [facility] URINALYSIS W/ MICROSCOPIC if indicated Not Indicated Normal - [facility] Comment on above: Result Comment: er Urine, appearance CLEAR Normal Clear [facility] Urine, color YELLOW Normal - [facility] Urine, ketones presence Negative Normal Negative [facility] Urine, nitrite presence Negative Normal Negative [facility] Urine, pH 6.0 [pH] Normal 5.0 - 9.0 [facility] Urine, specific gravity 1.015 Normal 1.010 - 1.030 [facility] Urine, urobilinogen Normal Normal Normal [facility] WBC (Leukocytes) Negative Normal Negative [facility] CNPNon 12-17-2016 CNPN Telephone (HLPROB) FRANK EDWARDS ( ) 1970 [facility] Time Provider Department12/17/16 VIRGINIA VALDEZ (RES) HLPROB During your visit today, we recorded the following information about you:Virginia Valdez MD 12/17/2016 3:15 PM SignedCalled patient to invite her to participate in the Endometrial Fluid Profilingas a Noninvasive Diagnostic Approach to Endometriosis study. The patientexpressed understanding and interest in enrolling. Will obtain formal consenton the day of surgery.??Kit Mahoney As of Date: 12/17/2016(No Known Allergies)Date Reviewed: 12/16/2016Reviewed by: Carlie Mendiola LPN - Fully AssessedReason for Visit: Research [[id number]]Prescriptions [...] by VIRGINIA VALDEZ MD on 12/17/16 Normal [facility] Laboratory - Chemistry and C hemistry - challengeon 01-19-2016 Creatinine [Mass/Vol] 200 mg/dL Normal [facility].; [employer] pH (Bld) 7 [pH] Normal [employer]. Specific gravity (U) [Rel density] 1.025 Normal [employer].; [employer]. Laboratory - Drug toxicology on 01-19-2016 Barbiturates Ql (S/P/Bld) Negative Normal [employer].; [employer], [employer]. Benzodiazepines Ql (U) Negative Normal [facility] [employer], [employer] Cocaine Ql (U) Negative Normal [employer].; [employer]. Methadone [Mass/Vol] Negative Normal [facility] [employer]. Opiates Ql (U) Negative Normal [employer].; [employer]. Laboratory - Urinalysison Nitrite Ql (U) 0 mg/dl Normal [employer]. No Panel Informationon 01-18 AMPHETAMINE Positive Normal [employer]. BLEACH Negative Normal [employer].; [employer]. MARIJUANA Negative Normal [employer].; [employer]. MDMA Negative Normal [employer].; [employer]. METHAMPHETAMINE Negative Normal [employer]. OXYCODONE Negative Normal [employer].; [employer]. Laboratory - Chemistry and C hemistry - challengeon 08-01-2015 TSH Qn 1.29 m[IU]/L Normal 0.40 - 4.50 {mIU/L} [employer].; [employer]. Laboratory - Hematology and Cell countson 08-01-2015 Basophils (Bld) [#/Vol] 20 {Cells}/uL Normal 0 - 200 {Cells}/uL [employer]. Basophils/100 WBC (Bld) 0 % Normal 0 - 1 % [employer].; [employer]. Eosinophils (Bld) [#/Vol] 140 {Cells}/uL Normal 15 - 500 {Cells}/uL [employer].; [employer]. Eosinophils/100 WBC (Bld) 3 % Normal 0 - 4 % [employer].; [employer]. Erythrocyte distribution width (RBC) [Ratio] 12.8 % Normal 11.0 - 15.0 % [employer].; [employer]. Hematocrit (Bld) [Volume fraction] 41.7 % Normal 35.0 - 45.0 % [employer].; [employer]. Hemoglobin (Bld) [Mass/Vol] 13.7 g/dL Normal 11.7 - 15.5 g/dL [facility], [facility].; [facility], [facility]. Lymphocytes (Bld) [#/Vol] 1330 {Cells}/uL Normal 850 - 3900 {Cells}/uL [facility].; [employer] Lymphocytes/100 WBC (Bld) 30 % Normal 12 - 47 % [facility].; [employer], [employer] MCH (RBC) [Entitic mass] 29.8 pg Normal 27.0 - 33.0 PG [facility].; [employer], [facility]. MCHC (RBC) [Mass/Vol] 32.8 g/dL Normal 32.0 - 36.0 g/dL [facility].; [employer], [employer] MCV (RBC) [Entitic vol] 90.6 fL Normal 80.0 - 100.0 fL [facility].; [employer], [facility]. Monocytes (Bld) [#/Vol] 340 {Cells}/uL Normal 200 - 950 {Cells}/uL [facility].; [employer], [employer] Monocytes/100 WBC (Bld) 8 % Normal 4 - 12 % [facility], [facility].; [employer], [employer] Neutrophils (Bld) [#/Vol] 2620 {Cells}/uL Normal 1500 - 7800 {Cells}/uL [facility].; [employer], [employer] Neutrophils/100 WBC (Bld) 59 % Normal 40 - 75 % [employer], [facility].; [employer], [employer] Platelet mean volume (Bld) [Entitic vol] 8.8 fL Normal 7.5 - 11.5 fL [employer], [facility].; [employer], [facility]. Platelets (Bld) [#/Vol] 256 10*3/uL Normal 140 - 400 10*3/uL [employer], [employer], [employer] RBC (Bld) [#/Vol] 4.60 10*6/uL Normal 3.80 - 5.10 10*6/uL [employer], [employer], [employer] WBC (Bld) [#/Vol] 4.4 10*3/uL Normal 3.8 - 10.8 10*3/uL [facility].; [employer] [facility] Laboratory - Chemistry and C hemistry - challengeon 07-26-2015 Albumin [Mass/Vol] 4.3 g/dL Normal 3.6 - 5.1 g/dL [facility].; [employer] [facility], [employer]. Albumin/Globulin [Mass ratio] 2.0 {ratio} Normal 1.0 - 2.5 [facility].; [employer] [facility]. ALP [Catalytic activity/Vol] 66 U/L Normal 33 - 115 U/L [facility].; [facility]. ALT [Catalytic activity/Vol] 12 U/L Normal 6 - 29 U/L [facility].; [employer] [facility], [employer]. AST [Catalytic activity/Vol] 15 U/L Normal 10 - 30 U/L [facility].; [employer]. Bilirubin [Mass/Vol] 0.4 mg/dL Normal 0.2 - 1 .2 mg/dL [facility].; [employer]. Calcium [Mass/Vol] 9.5 mg/dL Normal 8.6 - 10. 2 mg/dL [facility].; [employer] [facility]. Chloride [Moles/Vol] 106 mmol/L Normal 98 - 11 0 mmol/L [facility].; [employer], [facility]. Cholesterol [Mass/Vol] 194 mg/dL Normal 125 - 200 mg/dL [facility].; [facility]. Cholesterol in HDL [Mass/Vol] 75 mg/dL Normal [facility].; [employer], [employer]. Cholesterol in LDL [Mass/Vol] 111 mg/dL Normal [employer] [facility].; [employer], [employer]. Cholesterol non HDL [Mass/Vol] 119 mg/dL Normal [employer] [facility], [facility].; [employer], [employer]. Cholesterol.total/Chol esterol in HDL [Mass ratio] 2.6 {ratio} Normal [facility].; [employer]. CO2 [Moles/Vol] 25 mmol/L Normal 19 - 30 mmol/L [facility].; [facility]. Creatinine [Mass/Vol] 0.89 mg/dL Normal 0.50 - 1.10 mg/dL [facility], [facility].; [facility], [facility]. GFR/1.73 sq M.predicted among blacks MDRD (S/P/Bld) [Vol rate/Area] 91 {ML/MIN/1.73M2} Normal [facility], [facility].; [facility], [facility]. GFR/1.73 sq M.predicted MDRD (S/P/Bld) [Vol rate/Area] 79 {ML/MIN/1.73M2} Normal [facility], [facility].; [facility], [facility]. Globulin (S) [Mass/Vol] 2.2 g/dL Normal 1.9 - 3.7 g/dL [facility], [facility].; [facility], [facility]. Glucose [Mass/Vol] 88 mg/dL Normal 65 - 99 mg/dL [facility], [facility].; [facility], [facility]. Potassium [Moles/Vol] 4.3 mmol/L Normal 3.5 - 5.3 mmol/L [facility], [facility].; [facility], [facility]. Protein [Mass/Vol] 6.5 g/dL Normal 6.1 - 8.1 g/dL [facility], [facility].; [employer] [facility], [facility]. Sodium [Moles/Vol] 138 mmol/L Normal 135 - 146 mmol/L [facility], [facility].; [employer] [facility], [facility]. Triglyceride [Mass/Vol] 40 mg/dL Normal [facility], [facility].; [employer], [facility]. Urea nitrogen [Mass/Vol] 17 mg/dL Normal 7 - 25 mg/dL [facility], [facility].; [employer] [facility], [facility]. Urea nitrogen/Creatinine [Mass ratio] 19.3 mg/mg Normal 6 - 22 [facility].; [employer] [facility], [facility]. Laboratory - Chemistry and C hemistry - challengeon 12-15-2013 Albumin [Mass/Vol] 4.4 g/dL Normal 3.4 - 4.8 g/dL [facility], [facility].; [employer] [facility], [facility]. Albumin [Mass/Vol] 1.8 g/dL Abnormal 0.9 - 1.6 [facility], [facility].; [facility], [facility]. ALP [Catalytic activity/Vol] 53 U/L Normal 38 - 126 U/L [facility].; [facility], [facility]. ALT [Catalytic activity/Vol] 16 U/L Normal 8 - 35 U/L [facility], [facility].; [facility], [facility]. ALT No additional P-5'-P [Catalytic activity/Vol] 16 U/L Normal 8 - 35 U/L [facility].; [facility], [facility]. AST [Catalytic activity/Vol] 17 U/L Normal 13 - 39 U/L [facility], [facility].; [facility], [facility]. Bilirubin [Mass/Vol] 0.8 mg/dL Normal 0.0 - 1 .5 mg/dL [facility], [facility].; [facility], [facility]. Calcium [Mass/Vol] 9.5 mg/dL Normal 8.6 - 10. 2 mg/dL [facility], [facility].; [facility], [facility]. Chloride [Moles/Vol] 103 mmol/L Normal 98 - 10 7 mmol/L [facility].; [facility], [facility]. CO2 [Moles/Vol] 29.0 mmol/L Normal 13.0 - 29.0 mmol/L [facility], [facility].; [facility]. Comprehensive metabolic 2000 panel CMP with eGFR Normal [facility], [facility].; [facility], [facility] Creatinine [Mass/Vol] 0.8 mg/dL Normal 0.6 - 1.2 mg/dL [facility], [facility].; [facility], [facility]. GFR/1.73 sq M.predicted among blacks MDRD (S/P/Bld) [Vol rate/Area] mL/min/{1.73_m2} Normal 60 - 999 {ML/MINUTE } [facility], [facility].; [facility], [facility]. GFR/1.73 sq M.predicted MDRD (S/P/Bld) [Vol rate/Area] mL/min/{1.73_m2} Normal 60 - 999 {ML/MINUTE } [facility], [facility].; [facility] Globulin (S) [Mass/Vol] 2.4 g/dL Normal 1.5 - 3.8 g/dL [facility]; [facility], [facility] Glucose [Mass/Vol] 117 mg/dL Abnormal 74 - 106 mg/dL [facility].; [facility], [facility] Potassium [Moles/Vol] 3.8 mmol/L Normal 3.5 - 5.1 mmol/L [facility].; [facility], [facility] Protein [Mass/Vol] 6.8 g/dL Normal 6.4 - 8.3 g/dL [facility]; [facility], [facility] Sodium [Moles/Vol] 137 mmol/L Normal 136 - 145 mmol/L [facility].; [facility], [facility] Urea nitrogen [Mass/Vol] 13 mg/dL Normal 6 - 20 mg/dL [facility].; [facility], [facility] Urea nitrogen/Creatinine [Mass ratio] 16 {ratio} Normal 0 - 30 {ratio} [facility].; [employer] [facility] Laboratory - Hematology and Cell countson 12-15-2013 Basophils (Bld) [#/Vol] 0.00 {3/UL} Normal 0.00 - 0.10 {3/UL} [facility]; [facility], [facility]. Basophils/100 WBC (Bld) 0.7 % Normal 0.0 - 2.0 % [facility].; [facility] CBC W Auto Differential panel (Bld) CBC Normal [facility]; [facility], [facility] Eosinophils (Bld) [#/Vol] 0.00 {3/UL} Normal 0.00 - 0.50 {3/UL} [facility].; [facility], [facility] Eosinophils/100 WBC (Bld) 0.6 % Normal 0.0 - 7.0 % [facility].; [employer] [facility], [facility] Erythrocyte distribution width (RBC) [Ratio] 12.8 % Normal 12.0 - 15.6 % [facility].; [facility] Hematocrit (Bld) [Volume fraction] 42.8 % Normal 34.0 - 46.0 % [facility], [facility].; [employer], [facility]. Hemoglobin (Bld) [Mass/Vol] 14.8 g/dL Normal 12.0 - 16.0 g/dL [facility], [facility].; [employer] [facility], [facility]. Lymphocytes (Bld) [#/Vol] 2.20 {3/UL} Normal 0.80 - 2.80 {3/UL} [facility], [facility].; [employer], [facility]. Lymphocytes/100 WBC (Bld) 29.1 % Normal 20.0 - 45.0 % [facility], [facility].; [employer], [facility]. MCH (RBC) [Entitic mass] 31 pg Normal 27 - 33 pg [facility].; [employer] [facility], [facility]. MCHC (RBC) [Mass/Vol] 35 {X10_3} Normal 32 - 3 6 {X10_3} [facility], [facility].; [employer] MCV (RBC) [Entitic vol] 89 fL Normal 80 - 99 fL [employer] [facility].; [employer], [facility]. Monocytes (Bld) [#/Vol] 0.50 {3/UL} Normal 0.20 - 1.00 {3/UL} [employer], [facility].; [employer] Monocytes/100 WBC (Bld) 7.3 % Normal 0.0 - 10.0 % [employer], [facility].; [employer], [facility]. Morphology Jacinto (Bld) [Interp] N/A Normal [facility].; [employer], [facility]. Neutrophils (Bld) [#/Vol] 4.60 {3/UL} Normal 1.50 - 7.10 {3/UL} [employer], [facility].; [employer] Neutrophils/100 WBC (Bld) 62.3 % Normal 46.0 - 76.0 % [employer], [facility].; [employer] Platelet mean volume (Bld) [Entitic vol] 7.8 fL Normal 6.6 - 10.5 fL [employer] [facility].; [employer] Platelets (Bld) [#/Vol] 267 {3/UL} Normal 150 - 450 {3/UL} [employer] RBC (Bld) [#/Vol] 4.83 {6/UL} Normal 4.10 - 5.30 {6/UL} [employer], [employer] WBC (Bld) [#/Vol] 7.5 {3/UL} Normal 4.5 - 10.8 {3/UL} [employer] No Panel Informationon 12-15 AGE 43 {years} Normal [employer] MANUAL DIFF N/A Normal [employer].; [employer]. Laboratory - Chemistry and C hemistry - challengeon 01-20-2011 Albumin [Mass/Vol] 4.5 g/dL Normal 3.6 - 5.1 g/dL [employer], [employer]. Albumin/Globulin [Mass ratio] 1.7 {ratio} Normal 1.0 - 2.1 [employer].; [employer]. ALP [Catalytic activity/Vol] 93 U/L Normal 33 - 115 U/L [employer], [employer]. ALT [Catalytic activity/Vol] 35 U/L Normal 6 - 40 U/L [employer], [employer]. AST [Catalytic activity/Vol] 31 U/L Abnormal 10 - 30 U/L [employer], [employer]. Bilirubin [Mass/Vol] 0.4 mg/dL Normal 0.2 - 1 .2 mg/dL [employer], [employer]. Calcium [Mass/Vol] 9.6 mg/dL Normal 8.6 - 10. 2 mg/dL [employer], [employer].; [employer], [employer]. Chloride [Moles/Vol] 106 mmol/L Normal 98 - 11 0 mmol/L [employer], [employer].; [employer], [employer]. Cholesterol [Mass/Vol] 233 mg/dL Abnormal 125 - 200 mg/dL [employer], [employer]. Cholesterol in HDL [Mass/Vol] 58 mg/dL Normal [facility].; [facility]. Cholesterol in LDL [Mass/Vol] 149 mg/dL Abnormal [facility].; [facility], [facility]. Cholesterol.total/Chol esterol in HDL [Mass ratio] 4.0 {ratio} Normal [facility].; [facility]. CO2 [Moles/Vol] 23 mmol/L Normal 21 - 33 mmol/L [facility].; [employer] [facility], [facility]. Creatinine [Mass/Vol] 0.75 mg/dL Normal 0.59 - 1.07 mg/dL [facility], [facility].; [facility]. GFR/1.73 sq M.predicted among blacks MDRD (S/P/Bld) [Vol rate/Area] 116 {ML/MIN/1.73M2} Normal [facility], [facility].; [facility], [facility]. GFR/1.73 sq M.predicted MDRD (S/P/Bld) [Vol rate/Area] 100 {ML/MIN/1.73M2} Normal [facility].; [employer] [facility], [employer]. Globulin (S) [Mass/Vol] 2.6 g/dL Normal 2.2 - 3.9 g/dL [facility], [facility].; [employer], [facility]. Glucose [Mass/Vol] 88 mg/dL Normal 65 - 99 mg/dL [facility], [facility].; [employer] [facility], [facility]. Potassium [Moles/Vol] 4.9 mmol/L Normal 3.5 - 5.3 mmol/L [facility].; [employer], [facility]. Protein [Mass/Vol] 7.1 g/dL Normal 6.2 - 8.3 g/dL [facility], [facility].; [employer], [employer]. Sodium [Moles/Vol] 140 mmol/L Normal 135 - 146 mmol/L [facility], [facility].; [employer], [facility]. Triglyceride [Mass/Vol] 130 mg/dL Normal [facility], [facility].; [employer] [facility], [facility]. TSH Qn 1.14 m[IU]/L Normal 0.40 - 4.50 {mIU/L} [facility], [facility].; [facility], [facility] Urea nitrogen [Mass/Vol] 10 mg/dL Normal 7 - 25 mg/dL [facility].; [facility], [facility] Urea nitrogen/Creatinine [Mass ratio] 13.2 mg/mg Normal 6 - 22 [facility].; [facility], [facility] No Panel Information Enteric Bacteriology [facility] Work Phone: Vital Signs Date Time Vital Sign Value Performing Clinician Facility 12-08-2024 08:40-0400 Body height 160.[address] Juan Carolina MD Work Phone: [facility] 12-08-2024 08:40-0400 Diastolic blood pressure 67 mm[Hg] Dr. Juan Carolina MD Work Phone: [facility] 12-08-2024 08:40-0400 Heart rate 75 /min Dr. Juan Carolina MD Work Phone: [facility] 12-08-2024 08:40-0400 Respiratory rate 18 /min Dr. Juan Carolina MD Work Phone: [facility] 12-08-2024 08:40-0400 Systolic blood pressure 98 mm[Hg] Dr. Juan Carolina MD Work Phone: [facility] 12-08-2024 08:31-0400 Body weight 76.[address] Juan Carolina MD Work Phone: [facility] 10-25-2024 13:51-0400 Body height 158.9 cm Scarlet Ha MD Work Phone: [facility] 10-25-2024 13:51-0400 Body mass index (BMI) [Ratio] 29.23 kg/m2 Scarlet Ha MD Work Phone: [facility] 10-25-2024 13:51-0400 Body temperature 97.9 [degF] Scarlet Ha MD Work Phone: [facility] 10-25-2024 13:51-0400 Body weight 73.8 kg Scarlet Ha MD Work Phone: [facility] 10-25-2024 13:51-0400 Diastolic blood pressure 70 mm[Hg] Scarlet Ha MD Work Phone: [facility] 10-25-2024 13:51-0400 Heart rate 82 /min Scarlet Ha MD Work Phone: [facility] 10-25-2024 13:51-0400 SaO2% (BldA) [Mass fraction] 99 % Scarlet Ha MD Work Phone: [facility] 10-25-2024 13:51-0400 Systolic blood pressure 104 mm[Hg] Scarlet Ha MD Work Phone: [facility] 10-19-2024 07:04-0400 Body temperature 98 [degF] Dr. Juan Carolina MD Work Phone: [facility] 10-19-2024 07:04-0400 Diastolic blood pressure 83 mm[Hg] Dr. Juan Carolina MD Work Phone: [facility] 10-19-2024 07:04-0400 Heart rate 88 /min Dr. Juan Carolina MD Work Phone: [facility] 10-19-2024 07:04-0400 Respiratory rate 16 /min Dr. Juan Carolina MD Work Phone: [facility] 10-19-2024 07:04-0400 SaO2% (BldA) [Mass fraction] 100 % Dr. Juan Carolina MD Work Phone: [facility] 10-19-2024 07:04-0400 Systolic blood pressure 108 mm[Hg] Dr. Juan Carolina MD Work Phone: [facility] 10-19-2024 06:25-0400 Body height 160.[address] Juan Carolina MD Work Phone: [phone] [place] [address] 10-19-2024 06:25-0400 Body mass index (BMI) [Ratio] 28.8 kg/m2 Dr. Juan Carolina MD Work Phone: [phone](360)[phone] [place] [address] 10-19-2024 06:25-0400 Body weight 73.[address] Juan Carolina MD Work Phone: 7(360)[phone] [place] [address] 09-14-2024 10:36-0400 Body mass index (BMI) [Ratio] 28.8 kg/m2 Dr. Juan Carolina MD Work Phone: 2([phone])[phone] [place] [address] 09-14-2024 10:36-0400 Body weight 73.[address] Juan Carolina MD Work Phone: 4([phone])634-963686 [place] [address] 09-14-2024 10:36-0400 Diastolic blood pressure 65 mm[Hg] Dr. Juan Carolina MD Work Phone: 8(217)139-128986 [place] [address] 09-14-2024 10:36-0400 Heart rate 97 /min Dr. Juan Carolina MD Work Phone: 4(490)[phone] [place] [address] 09-14-2024 10:36-0400 Respiratory rate 16 /min Dr. Juan Carolina MD Work Phone: 1(400)[phone] [place] [address] 09-14-2024 10:36-0400 SaO2% (BldA) [Mass fraction] 98 % Dr. Juan Carolina MD Work Phone: 5([phone] [place] [address] 09-14-2024 10:36-0400 Systolic blood pressure 93 mm[Hg] Dr. Juan Carolina MD Work Phone: [phone] [place] [address] 07-21-2024 09:05-0500 Body height 158.9 cm Renetta Valencia PSYCHIATRIC TECHNICIAN ASSISTANT.CONFIGURATION DEVELOPER Work Phone: [phone] [place] [address] 07-21-2024 09:05-0500 Body mass index (BMI) [Ratio] 29.71 kg/m2 Renetta Valencia PSYCHIATRIC TECHNICIAN ASSISTANT.CONFIGURATION DEVELOPER Work Phone: [facility] 07-21-2024 09:05-0500 Body weight 75.03 kg Renetta Valencia PSYCHIATRIC TECHNICIAN ASSISTANT.CONFIGURATION DEVELOPER Work Phone: [facility] 07-21-2024 09:05-0500 Diastolic blood pressure 60 mm[Hg] Renetta Tyler PSYCHIATRIC TECHNICIAN ASSISTANT.CONFIGURATION DEVELOPER Work Phone: [facility] 07-21-2024 09:05-0500 Systolic blood pressure 110 mm[Hg] Renetta Valencia PSYCHIATRIC TECHNICIAN ASSISTANT.CONFIGURATION DEVELOPER Work Phone: [facility] 11-10-2023 08:19-0400 Body mass index (BMI) [Ratio] 33.93 kg/m2 Juan Carolina MD Work Phone: [facility] 11-10-2023 08:19-0400 Body temperature 98.49 [degF] Juan Carolina MD Work Phone: [facility] 11-10-2023 08:19-0400 Body weight 84.82 kg Juan Carolina MD Work Phone: [facility] 11-10-2023 08:19-0400 Diastolic blood pressure 70 mm[Hg] Juan Carolina MD Work Phone: [facility] 11-10-2023 08:19-0400 Heart rate 80 /min Juan Carolina MD Work Phone: [facility] 11-10-2023 08:19-0400 Respiratory rate 16 /min Juan Carolina MD Work Phone: [facility] 11-10-2023 08:19-0400 Systolic blood pressure 112 mm[Hg] Juan Carolina MD Work Phone: [facility] 10-07-2023 15:50-0400 Body weight 85.73 kg Jamee Hernandez APRN.CONFIGURATION DEVELOPER Work Phone: [facility] 10-07-2023 15:50-0400 Diastolic blood pressure 64 mm[Hg] Jamee Hernandez APRN.CONFIGURATION DEVELOPER Work Phone: [facility] 10-07-2023 15:50-0400 Heart rate 78 /min Jamee Hernandez APRN.CONFIGURATION DEVELOPER Work Phone: [facility] 10-07-2023 15:50-0400 SaO2% (BldA) [Mass fraction] 98 % Jamee Hernandez APRN.CONFIGURATION DEVELOPER Work Phone: [facility] 10-07-2023 15:50-0400 Systolic blood pressure 110 mm[Hg] Jamee Hernandez APRN.CONFIGURATION DEVELOPER Work Phone: [facility] 09-29-2023 09:09-0400 Body temperature 98.1 [degF] Juan Carolina MD Work Phone: [facility] 09-29-2023 09:090400 Body weight 84.82 kg Juan Carolina MD Work Phone: [facility] 09-29-2023 09:09-0400 Diastolic blood pressure 64 mm[Hg] Juan Carolina MD Work Phone: [facility] 09-29-2023 09:09-0400 Heart rate 84 /min Juan Carolina MD Work Phone: [facility] 09-29-2023 09:09-0400 Respiratory rate 12 /min Juan Carolina MD Work Phone: [facility] 09-29-2023 09:09-0400 Systolic blood pressure 102 mm[Hg] Juan Carolina MD Work Phone: [facility] 09-03-2023 12:55-0400 Body height 158.1 cm Jamee Hernandez APRN.CONFIGURATION DEVELOPER Work Phone: [facility] 09-03-2023 12:55-0400 Body weight 80.74 kg Jamee Hernandez APRN.CONFIGURATION DEVELOPER Work Phone: [facility] 09-03-2023 12:55-0400 Diastolic blood pressure 72 mm[Hg] Jamee Hernandez APRN.CONFIGURATION DEVELOPER Work Phone: [facility] 09-03-2023 12:55-0400 Heart rate 82 /min Jamee Hernandez APRN.CONFIGURATION DEVELOPER Work Phone: [facility] 09-03-2023 12:55-0400 SaO2% (BldA) [Mass fraction] 97 % Jamee Hernandez APRN.CONFIGURATION DEVELOPER Work Phone: [facility] 09-03-2023 12:55-0400 Systolic blood pressure 106 mm[Hg] Jamee Hernandez APRN.CONFIGURATION DEVELOPER Work Phone: [facility] 08-28-2023 10:50-0500 Body temperature 98.01 [degF] Anthony Kan MD Work Phone: [facility] 08-04-2023 13:55-0500 Body height 160 cm Anthony Kan MD Work Phone: [facility] 08-04-2023 13:55-0500 Body temperature 98.49 [degF] Anthony Kan MD Work Phone: [facility] 08-04-2023 13:55-0500 Body weight 80.29 kg Anthony Kan MD Work Phone: [facility] 08-04-2023 13:55-0500 Diastolic blood pressure 64 mm[Hg] Anthony Kan MD Work Phone: [facility] 08-04-2023 13:55-0500 Heart rate 96 /min Anthony Kan MD Work Phone: [facility] 08-04-2023 13:55-0500 SaO2% (BldA) [Mass fraction] 98 % Anthony Kan MD Work Phone: [facility] 08-04-2023 13:55-0500 Systolic blood pressure 90 mm[Hg] Anthony Kan MD Work Phone: [facility] 06-07-2023 17:29-0500 Body height 160.02 cm [facility] 06-07-2023 17:29-0500 Body mass index (BMI) [Ratio] 31.7 kg/m2 [facility] 06-07-2023 17:29-0500 Body temperature 97.1 [degF] [facility] 06-07-2023 17:29-0500 Body weight 81.32 kg [facility] 06-07-2023 17:29-0500 Diastolic blood pressure 98 mm[Hg] [facility] 06-07-2023 17:29-0500 Heart rate 92 /min [facility] 06-07-2023 17:29-0500 Respiratory rate 17 /min [facility] 06-07-2023 17:29-0500 SaO2% (BldA) [Mass fraction] 98 % [facility] 06-07-2023 17:29-0500 Systolic blood pressure 136 mm[Hg] [facility] 04-17-2022 13:31-0400 Body height 157.48 cm Gabbie Mao [facility], [facility].; [employer] [facility] 04-17-2022 13:31-0400 Body mass index (BMI) [Ratio] 34.75 kg/m2 Gabbie Hill Daylin [facility], Inc.; [employer] [facility] 04-17-2022 13:31-0400 Body surface area Derived from formula 1.87 m2 Gabbie Mao [facility], Inc[employer] 04-17-2022 13:31-0400 Body weight 86.18 kg Gabbie Hill Daylin [facility], [facility].; [employer] 04-17-2022 13:31-0400 Diastolic blood pressure 78 mm[Hg] Gabbie Mao INDUCTION MACHINE OPERATOR [facility]. Comment on above: Patient Position: Sitting; Cuff Location : Left Arm; Cuff Size: Standard 04-17-2022 13:31-0400 Heart rate 101 /min Gabbie Mao INDUCTION MACHINE OPERATOR [employer] [facility], [employer]. Comment on above: Pattern: Regular 04-17-2022 13:31-0400 Systolic blood pressure 113 mm[Hg] Gabbie Mao LPN [employer] [facility], [employer]. Comment on above: Patient Position: Sitting; Cuff Location : Left Arm; Cuff Size: Standard 02-14-2022 13:57-0400 Body height 160.[address] Zacarias Lieberman Work Phone: [facility] Work Phone: 02-14-2022 13:57-0400 Body mass index (BMI) [Ratio] 32.8 kg/m2 Dr. Zacarias Lieberman Work Phone: [facility] Work Phone: 02-14-2022 13:57-0400 Body weight 83.[address] Zacarias Lieberman Work Phone: [facility] Work Phone: 02-14-2022 13:57-0400 Diastolic blood pressure 84 mm[Hg] Dr. Zacarias Lieberman Work Phone: [facility] Work Phone: 02-14-2022 13:57-0400 Heart rate 94 /min Dr. Zacarias Lieberman Work Phone: [facility] Work Phone: 02-14-2022 13:57-0400 SaO2% (BldA) [Mass fraction] 97 % Dr. Zacarias Lieberman Work Phone: [facility] Work Phone: 02-14-2022 13:57-0400 Systolic blood pressure 115 mm[Hg] Dr. Zacarias Lieberman Work Phone: [facility] Work Phone: 01-27-2022 14:51-0400 Body height 157.48 cm [facility] April [facility], [facility].; [facility], [facility]. 01-27-2022 14:51-0400 Body mass index (BMI) [Ratio] 33.84 kg/m2 [facility], [facility].; [facility], [facility]. 01-27-2022 14:51-0400 Body surface area Derived from formula 1.85 m2 [facility], [facility].; [facility], [facility]. 01-27-2022 14:51-0400 Body weight 83.92 kg Sally Chen JEREMI [facility], Inc.; [employer] [facility], Inc[facility] 01-27-2022 14:51-0400 Diastolic blood pressure 81 mm[Hg] Sally Chen JEREMI [facility], Inc.; [employer] [facility], Inc. Comment on above: Patient Position: Sitting; Cuff Location : Left Arm; Cuff Size: Large 01-27-2022 14:51-0400 Heart rate 82 /min Sally Chen JEREMI [facility], Inc.; [employer], [employer] Comment on above: Pattern: Regular 01-27-2022 14:51-0400 Systolic blood pressure 119 mm[Hg] Sally Chen JEREMI [facility], Inc.; [employer], [employer] Comment on above: Patient Position: Sitting; Cuff Location : Left Arm; Cuff Size: Large 01-02-2022 08:00-0400 Body height 157.48 cm Kaylin Page LPN [facility], Inc.; [employer] [facility], Inc[facility] 01-02-2022 08:00-0400 Body mass index (BMI) [Ratio] 32.92 kg/m2 Kaylin Page LPN [facility], Inc.; [employer] [facility], Inc. 01-02-2022 08:00-0400 Body surface area Derived from formula 1.83 m2 Kaylin Page LPN [facility], Inc.; [employer] [facility], Inc. 01-02-2022 08:00-0400 Body weight 81.65 kg Kaylin Page LPN [facility], Inc.; [employer] [facility], Inc. 01-02-2022 08:00-0400 Diastolic blood pressure 71 mm[Hg] Kaylin Page LPN [facility], Inc.; [employer], [employer] Comment on above: Patient Position: Sitting; Cuff Location : Left Arm; Cuff Size: Standard 01-02-2022 08:00-0400 Heart rate 76 /min Kaylin Page LPN [facility], Inc.; [employer], [employer] Comment on above: Pattern: Regular 01-02-2022 08:00-0400 Systolic blood pressure 101 mm[Hg] Kaylin Page LPN [facility], [facility].; [facility], [facility]. Comment on above: Patient Position: Sitting; Cuff Location : Left Arm; Cuff Size: Standard 12-27-2021 08:30-0400 Body temperature 98.1 [degF] Dr. Zacarias Lieberman Work Phone: [facility] Work Phone: 12-27-2021 08:30-0400 Diastolic blood pressure 71 mm[Hg] Dr. Zacarias Lieberman Work Phone: [facility] Work Phone: 12-27-2021 08:30-0400 Heart rate 72 /min Dr. Zacarias Lieberman Work Phone: [facility] Work Phone: 12-27-2021 08:30-0400 Respiratory rate 18 /min Dr. Zacarias Lieberman Work Phone: [facility] Work Phone: 12-27-2021 08:30-0400 SaO2% (BldA) [Mass fraction] 95 % Dr. Zacarias Lieberman Work Phone: [facility] Work Phone: 12-27-2021 08:30-0400 Systolic blood pressure 102 mm[Hg] Dr. Zacarias Lieberman Work Phone: [facility] Work Phone: 12-26-2021 10:51-0400 Body weight 83.[address] Zacarias Lieberman Work Phone: [facility] Work Phone: 12-26-2021 06:05-0400 Body mass index (BMI) [Ratio] 32.5 kg/m2 Dr. Zacarias Lieberman Work Phone: [facility] Work Phone: 12-26-2021 04:39-0400 Body temperature 97.9 [degF] [facility] Work Phone: 12-26-2021 04:39-0400 Diastolic blood pressure 73 mm[Hg] [facility] Work Phone: 12-26-2021 04:39-0400 Heart rate 90 /min [facility] Work Phone: 12-26-2021 04:39-0400 Respiratory rate 16 /min [facility] Work Phone: 12-26-2021 04:39-0400 SaO2% (BldA) [Mass fraction] 96 % [facility] Work Phone: 12-26-2021 04:39-0400 Systolic blood pressure 119 mm[Hg] [facility] Work Phone: 12-26-2021 02:38-0400 Body height 160.02 cm [facility] Work Phone: 12-26-2021 02:38-0400 Body mass index (BMI) [Ratio] 32.6 kg/m2 [facility] Work Phone: 12-26-2021 02:38-0400 Body weight 83.6 kg [facility] Work Phone: 08-06-2020 09:33-0500 Body height 157.48 cm KayeAbiola Chen [facility], [facility].; [employer] [facility], Inc. 08-06-2020 09:33-0500 Body mass index (BMI) [Ratio] 31.09 kg/m2 [facility] April [facility], Inc.; [employer] [facility], [facility]. 08-06-2020 09:33-0500 Body surface area Derived from formula 1.78 m2 KayeAbiola Chen INDUCTION MACHINE OPERATOR [facility], [facility].; [employer] [facility], [facility]. 08-06-2020 09:33-0500 Body weight 77.11 kg [facility] April [facility], Inc.; [employer] [facility], Inc. 08-06-2020 09:33-0500 Diastolic blood pressure 75 mm[Hg] Kaye Stuckey INDUCTION MACHINE OPERATOR [facility], [facility].; [employer] [facility], Inc. Comment on above: Patient Position: Sitting; Cuff Location : Left Arm; Cuff Size: Large 08-06-2020 09:33-0500 Heart rate 93 /min Sally Chen LPN [facility], Inc.; [employer] [facility], [employer]. Comment on above: Pattern: Regular 08-06-2020 09:33-0500 Systolic blood pressure 111 mm[Hg] Sally Chen LPN [facility], Inc.; [employer], [employer]. Comment on above: Patient Position: Sitting; Cuff Location : Left Arm; Cuff Size: Large 07-03-2020 09:25-0500 Body height 160.02 cm Sally Chen LPN [facility], Inc.; [employer] [facility], [employer]. 07-03-2020 09:25-0500 Body mass index (BMI) [Ratio] 30.47 kg/m2 Sally Chen [facility], Inc.; [employer] [facility], Inc. 07-03-2020 09:25-0500 Body surface area Derived from formula 1.81 m2 Sally Chen [facility], Inc.; [employer] [facility], [employer]. 07-03-2020 09:25-0500 Body temperature 97.3 [degF] Sally Chen [facility], Inc.; [employer] [facility], [employer]. Comment on above: Method: Tympanic 07-03-2020 09:25-0500 Body weight 78.02 kg Sally Chen LPN [facility], Inc.; [employer], [employer] 07-03-2020 09:25-0500 Diastolic blood pressure 72 mm[Hg] Sally Chen LPN [facility], Inc.; [employer], [employer]. Comment on above: Patient Position: Sitting; Cuff Location : Left Arm; Cuff Size: Large 07-03-2020 09:25-0500 Heart rate 104 /min Sally Chen INDUCTION MACHINE OPERATOR [facility], Inc.; [employer]. Comment on above: Pattern: Regular 07-03-2020 09:25-0500 Systolic blood pressure 125 mm[Hg] Sally Chen LPN [facility], Inc.; [employer]. Comment on above: Patient Position: Sitting; Cuff Location : Left Arm; Cuff Size: Large 08-10-2019 10:53-0500 Body height 160.02 cm Sally Chen [facility] [employer] [facility], Inc.; [employer], [employer] 08-10-2019 10:53-0500 Body mass index (BMI) [Ratio] 28.52 kg/m2 Sally Chen [facility] [employer] [facility], Inc.; [employer], [employer] 08-10-2019 10:53-0500 Body surface area Derived from formula 1.76 m2 Sally Chen [facility] [employer], [employer], [employer]. 08-10-2019 10:53-0500 Body weight 73.03 kg [facility] [employer], [employer]. 08-10-2019 10:53-0500 Diastolic blood pressure 78 mm[Hg] Sally [facility].; [employer], [employer]. Comment on above: Patient Position: Sitting; Cuff Location : Left Arm; Cuff Size: Large 08-10-2019 10:53-0500 Heart rate 109 /min Sally Chen [facility], Inc.; [employer], [employer] Comment on above: Pattern: Regular 08-10-2019 10:53-0500 Systolic blood pressure 120 mm[Hg] Sally Chen INDUCTION MACHINE OPERATOR [employer] [facility], Inc.; [employer], [employer]. Comment on above: Patient Position: Sitting; Cuff Location : Left Arm; Cuff Size: Large 10-18-2018 08:38-0400 Body height 160.02 cm Williame Hung Gonzalez INDUCTION MACHINE OPERATOR [employer] [facility], Inc.; [employer], [employer]. 10-18-2018 08:38-0400 Body mass index (BMI) [Ratio] 26.75 kg/m2 Neilee L Vess INDUCTION MACHINE OPERATOR [employer], [employer].; [employer], [employer] 10-18-2018 08:38-0400 Body surface area Derived from formula 1.72 m2 Neilee L Vess INDUCTION MACHINE OPERATOR [employer], [employer].; [employer], [employer]. 10-18-2018 08:38-0400 Body weight 68.49 kg Neilee L Vess INDUCTION MACHINE OPERATOR [facility], Inc.; [employer], [employer] 10-18-2018 08:38-0400 Diastolic blood pressure 76 mm[Hg] Williame Hung Gonzalez INDUCTION MACHINE OPERATOR [employer] [facility], Inc.; [employer], [employer]. Comment on above: Patient Position: Sitting; Cuff Location : Left Arm; Cuff Size: Standard 10-18-2018 08:38-0400 Heart rate 101 /min Williame Hung Gonzalez INDUCTION MACHINE OPERATOR [employer] [facility], Inc.; [employer], [employer]. Comment on above: Pattern: Regular 10-18-2018 08:38-0400 Systolic blood pressure 118 mm[Hg] Williame Hung Vess INDUCTION MACHINE OPERATOR [employer], [employer].; [employer], [employer] Comment on above: Patient Position: Sitting; Cuff Location : Left Arm; Cuff Size: Standard 04-20-2018 11:04-0400 Body height 160.02 cm Sally Chen INDUCTION MACHINE OPERATOR [facility], Inc.; [employer], [employer] 04-20-2018 11:04-0400 Body mass index (BMI) [Ratio] 25.51 kg/m2 Sally Chen [facility] [employer] [facility], Inc.; [employer], [employer] 04-20-2018 11:04-0400 Body surface area Derived from formula 1.68 m2 Sally Chen [facility], Inc.; [employer], [employer] 04-20-2018 11:04-0400 Body weight 65.32 kg Sally Chen [facility] [employer] [facility], Inc.; [employer], [employer] 04-20-2018 11:04-0400 Diastolic blood pressure 85 mm[Hg] Sally Chen [facility] [employer] [facility], Inc.; [employer], [employer] Comment on above: Patient Position: Sitting; Cuff Location : Left Arm; Cuff Size: Large 04-20-2018 11:04-0400 Heart rate 85 /min Sally Chen [facility] [employer] [facility], Inc.; [employer], [employer]. Comment on above: Pattern: Regular 04-20-2018 11:04-0400 Systolic blood pressure 121 mm[Hg] Sally Chen INDUCTION MACHINE OPERATOR [employer] [facility], Inc.; [employer]. Comment on above: Patient Position: Sitting; Cuff Location : Left Arm; Cuff Size: Large 04-07-2018 06:55-0400 Body height 160.02 cm Sally Chen INDUCTION MACHINE OPERATOR [facility], Inc.; [employer], [employer]. 04-07-2018 06:55-0400 Body mass index (BMI) [Ratio] 25.51 kg/m2 Sally Chen [facility], Inc.; [employer]. 04-07-2018 06:55-0400 Body surface area Derived from formula 1.68 m2 Sally Chen INDUCTION MACHINE OPERATOR [facility], [employer]. 04-07-2018 06:55-0400 Body temperature 98.2 [degF] Sally Chen [facility], [employer]. Comment on above: Method: Tympanic 04-07-2018 06:55-0400 Body weight 65.32 kg Sally Chen [facility], [employer]. 04-07-2018 06:55-0400 Diastolic blood pressure 71 mm[Hg] Sally Chen [facility], [employer]. Comment on above: Patient Position: Sitting; Cuff Location : Left Arm; Cuff Size: Large 04-07-2018 06:55-0400 Heart rate 77 /min Sally Chen [facility], [employer]. Comment on above: Pattern: Regular 04-07-2018 06:55-0400 Inhaled oxygen concentration 20 % Sally Chen [facility] [employer] [facility], Inc.; [employer]. Comment on above: Room air 04-07-2018 06:55-0400 Inhaled oxygen concentration 21 % Sally Chen [facility] [employer] [facility], [employer]. Comment on above: Room air 04-07-2018 06:55-0400 SaO2% (BldA) [Mass fraction] 97 % Kaye April [facility] [employer] [facility], [employer]. 04-07-2018 06:55-0400 Systolic blood pressure 108 mm[Hg] Sally Chen LPN [facility], Inc.; [employer], [employer] Comment on above: Patient Position: Sitting; Cuff Location : Left Arm; Cuff Size: Large 09-08-2017 09:08-0400 Body height 160.02 cm Sally Chen INDUCTION MACHINE OPERATOR [facility], Inc.; [employer], [employer] 09-08-2017 09:08-0400 Body mass index (BMI) [Ratio] 24.45 kg/m2 Sally Chen [facility], Inc.; [employer], [employer] 09-08-2017 09:08-0400 Body surface area Derived from formula 1.65 m2 Kaye April [facility], Inc.; [employer], [employer] 09-08-2017 09:08-0400 Body weight 62.6 kg Sally Chen [facility] [employer] [facility], Inc.; [employer], [employer] 09-08-2017 09:08-0400 Diastolic blood pressure 76 mm[Hg] Sally Chen [facility] [employer] [facility], Inc.; [employer], [employer] Comment on above: Patient Position: Sitting; Cuff Location : Left Arm; Cuff Size: Large 09-08-2017 09:08-0400 Heart rate 92 /min Sally Chen INDUCTION MACHINE OPERATOR [facility], Inc.; [employer], [employer] Comment on above: Pattern: Regular 09-08-2017 09:08-0400 Systolic blood pressure 114 mm[Hg] Sally Chen [facility], Inc.; [employer], [employer] Comment on above: Patient Position: Sitting; Cuff Location : Left Arm; Cuff Size: Large 07-06-2017 15:22-0500 Body height 160.02 cm Zacarias Lieberman MD Work Phone: [employer] [facility], [employer], [employer] 07-06-2017 15:22-0500 Body mass index (BMI) [Ratio] 24.45 kg/m2 Zacarias Lieberman MD Work Phone: [employer], [employer] 07-06-2017 15:22-0500 Body surface area Derived from formula 1.65 m2 Zacarias Lieberman MD Work Phone: [employer]. 07-06-2017 15:22-0500 Body weight 62.6 kg Zacarias Lieberman MD Work Phone: [employer]. 07-06-2017 15:22-0500 Diastolic blood pressure 65 mm[Hg] Zacarias Lieberman MD Work Phone: [employer]. Comment on above: Patient Position: Sitting; Cuff Location : Left Arm; Cuff Size: Standard 07-06-2017 15:22-0500 Heart rate 70 /min Zacarias Lieberman MD Work Phone: [employer]. Comment on above: Pattern: Regular 07-06-2017 15:22-0500 Systolic blood pressure 93 mm[Hg] Zacarias Lieberman MD Work Phone: [employer].; [employer]. Comment on above: Patient Position: Sitting; Cuff Location : Left Arm; Cuff Size: Standard 10-17-2016 14:05-0400 Body weight 62.6 kg Zacarias Lieberman MD Work Phone: [employer]. 10-17-2016 14:05-0400 Diastolic blood pressure 67 mm[Hg] Zacarias Lieberman MD Work Phone: [employer]. Comment on above: Patient Position: Sitting; Cuff Location : Left Arm; Cuff Size: Standard 10-17-2016 14:05-0400 Heart rate 81 /min Zacarias Lieberman MD Work Phone: [employer]. Comment on above: Pattern: Regular 10-17-2016 14:05-0400 Systolic blood pressure 96 mm[Hg] Zacarias Lieberman MD Work Phone: [employer]. Comment on above: Patient Position: Sitting; Cuff Location : Left Arm; Cuff Size: Standard 07-25-2016 08:06-0500 Body height 160.02 cm Joan Lora RN [employer]. 07-25-2016 08:06-0500 Body mass index (BMI) [Ratio] 24.45 kg/m2 Joan Lora RN [employer]. 07-25-2016 08:06-0500 Body surface area Derived from formula 1.65 m2 Joan Lora RN [employer]. 07-25-2016 08:06-0500 Body temperature 99 [degF] Joan Lora RN [employer]. Comment on above: Method: Tympanic 07-25-2016 08:06-0500 Body weight 62.6 kg Joan Lora RN [employer]. 07-25-2016 08:06-0500 Diastolic blood pressure 63 mm[Hg] Joan Lora RN [employer]. Comment on above: Patient Position: Sitting; Cuff Location : Right Arm; Cuff Size: Standard 07-25-2016 08:06-0500 Heart rate 81 /min Joan Lora RN [employer]. Comment on above: Pattern: Regular 07-25-2016 08:06-0500 Inhaled oxygen concentration 20 % Joan Lora RN [employer]. Comment on above: Room air 07-25-2016 08:06-0500 Inhaled oxygen concentration 21 % Joan Lora RN [employer]. Comment on above: Room air 07-25-2016 08:06-0500 SaO2% (BldA) [Mass fraction] 98 % Joan Lora RN [employer]. 07-25-2016 08:06-0500 Systolic blood pressure 97 mm[Hg] Joan Lora RN [facility], [employer] [facility], [employer]. Comment on above: Patient Position: Sitting; Cuff Location : Right Arm; Cuff Size: Standard 08-01-2015 08:31-0500 Body height 160.02 cm Sally Chen INDUCTION MACHINE OPERATOR [facility], Inc.; [employer] [facility], [employer]. 08-01-2015 08:31-0500 Body mass index (BMI) [Ratio] 23.03 kg/m2 Sally Chen [facility], Inc.; [employer] [facility], [employer]. 08-01-2015 08:31-0500 Body surface area Derived from formula 1.61 m2 Kaye April [facility], Inc.; [employer] [facility], [employer]. 08-01-2015 08:31-0500 Body weight 58.97 kg Sally Chen [facility], Inc.; [employer] [facility], [employer]. 08-01-2015 08:31-0500 Diastolic blood pressure 71 mm[Hg] Sally Chen [facility], Inc.; [employer] [facility], [employer]. Comment on above: Patient Position: Sitting; Cuff Location : Left Arm; Cuff Size: Large 08-01-2015 08:31-0500 Heart rate 101 /min Sally Chen [facility], [facility].; [employer] [facility], [employer]. Comment on above: Pattern: Regular 08-01-2015 08:31-0500 Systolic blood pressure 109 mm[Hg] Sally Chen INDUCTION MACHINE OPERATOR [facility], Inc.; [employer] [facility], [employer]. Comment on above: Patient Position: Sitting; Cuff Location : Left Arm; Cuff Size: Large 04-16-2015 14:04-0400 Body temperature 98.1 [degF] Pat Mckinnon LPN [facility], Inc.; [employer], [employer]. 04-16-2015 14:04-0400 Body weight 54.89 kg Pat Mckinnon INDUCTION MACHINE OPERATOR [facility], Inc.; [employer], [employer]. 04-16-2015 14:04-0400 Diastolic blood pressure 65 mm[Hg] Pat Mckinnon [facility], [employer]. Comment on above: Patient Position: Sitting; Cuff Location : Left Arm; Cuff Size: Standard 04-16-2015 14:04-0400 Heart rate 88 /min Pat Mckinnon LPN [facility], [facility].; [employer]. Comment on above: Pattern: Regular 04-16-2015 14:04-0400 Inhaled oxygen concentration 20 % Pat Mckinnon [facility], Inc.; [employer]. Comment on above: Room air 04-16-2015 14:04-0400 Inhaled oxygen concentration 21 % Pat Mckinnon LPN [facility], [facility].; [employer]. Comment on above: Room air 04-16-2015 14:04-0400 SaO2% (BldA) [Mass fraction] 98 % Pat Mckinnon [facility], [facility].; [employer]. 04-16-2015 14:04-0400 Systolic blood pressure 103 mm[Hg] Pat Mckinnon [facility], [employer].; [employer]. Comment on above: Patient Position: Sitting; Cuff Location : Left Arm; Cuff Size: Standard 12-29-2014 07:18-0400 Body height 160.02 cm [facility] [employer].; [employer]. 12-29-2014 07:18-0400 Body mass index (BMI) [Ratio] 21.26 kg/m2 Gabbie M Daylin [facility], Inc.; [employer]. 12-29-2014 07:18-0400 Body surface area Derived from formula 1.56 m2 Gabbie Hill Daylin [facility] [employer] [facility], [facility].; [employer]. 12-29-2014 07:18-0400 Body weight 54.43 kg [facility]abbie [facility] [employer] [facility], [employer].; [employer]. 12-29-2014 07:18-0400 Diastolic blood pressure 63 mm[Hg] Gabbie Mao [facility], [facility].; [employer]. Comment on above: Patient Position: Sitting; Cuff Location : Left Arm; Cuff Size: Standard 12-29-2014 07:18-0400 Heart rate 71 /min Gabbie Mao JEREMI [facility], Inc.; [employer], [employer]. Comment on above: Pattern: Regular 12-29-2014 07:18-0400 Systolic blood pressure 98 mm[Hg] Gabbie Mao [facility], Inc.; [employer] Comment on above: Patient Position: Sitting; Cuff Location : Left Arm; Cuff Size: Standard 08-25-2014 07:07-0500 Body height 160.02 cm Sally Chen [facility], Inc.; [employer], [employer] 08-25-2014 07:07-0500 Body mass index (BMI) [Ratio] 21.43 kg/m2 Sally Chen [facility], Inc.; [employer] [facility], [employer]. 08-25-2014 07:07-0500 Body surface area Derived from formula 1.56 m2 Kaye April [facility], Inc.; [employer], [employer]. 08-25-2014 07:07-0500 Body weight 54.89 kg Sally Chen [facility], Inc.; [employer], [employer]. 08-25-2014 07:07-0500 Diastolic blood pressure 59 mm[Hg] Sally Chen [facility], Inc.; [employer], [employer]. Comment on above: Patient Position: Sitting; Cuff Location : Left Arm; Cuff Size: Large 08-25-2014 07:07-0500 Heart rate 82 /min Sally Chen INDUCTION MACHINE OPERATOR [facility], Inc.; [employer]. Comment on above: Pattern: Regular 08-25-2014 07:07-0500 Systolic blood pressure 89 mm[Hg] Sally Chen [facility], Inc.; [employer], [employer]. Comment on above: Patient Position: Sitting; Cuff Location : Left Arm; Cuff Size: Large 12-15-2013 09:56-0400 Body height 160.02 cm Zacarias Lieberman MD Work Phone: [facility], [employer], [employer]. 12-15-2013 09:56-0400 Body mass index (BMI) [Ratio] 20.9 kg/m2 Zacarias Lieberman MD Work Phone: [employer]. 12-15-2013 09:56-0400 Body surface area Derived from formula 1.55 m2 Zacarias Lieberman MD Work Phone: [employer]. 12-15-2013 09:56-0400 Body temperature 98.8 [degF] Zacarias Lieberman MD Work Phone: [employer]. Comment on above: Method: Tympanic 12-15-2013 09:56-0400 Body weight 53.52 kg Zacarias Lieberman MD Work Phone: [employer] 12-15-2013 09:56-0400 Diastolic blood pressure 71 mm[Hg] Zacarias Lieberman MD Work Phone: [employer]; [employer]. Comment on above: Patient Position: Sitting; Cuff Location : Left Arm; Cuff Size: Standard 12-15-2013 09:56-0400 Heart rate 83 /min Zacarias Lieberman MD Work Phone: [employer]; [employer]. Comment on above: Pattern: Regular 12-15-2013 09:56-0400 Systolic blood pressure 108 mm[Hg] Zacarias Lieberman MD Work Phone: [employer]. Comment on above: Patient Position: Sitting; Cuff Location : Left Arm; Cuff Size: Standard 04-27-2013 10:35-0500 Body height 160.02 cm [facility]ie [facility] [employer]. 04-27-2013 10:35-0500 Body mass index (BMI) [Ratio] 20.9 kg/m2 Gabbie Mao LPN [employer].; [employer]. 04-27-2013 10:35-0500 Body surface area Derived from formula 1.55 m2 Gabbie Mao [facility].; [employer] 04-27-2013 10:35-0500 Body weight 53.52 kg Gabbie Hill Daylin [facility], [facility].; [employer]. 04-27-2013 10:35-0500 Diastolic blood pressure 66 mm[Hg] Gabbie Hill Daylin LPN [facility] [employer]. Comment on above: Patient Position: Sitting; Cuff Location : Left Arm; Cuff Size: Standard 04-27-2013 10:35-0500 Heart rate 80 /min Gabbie Hill Daylin BLOOD [employer] [facility], [facility] [employer]. Comment on above: Pattern: Regular 04-27-2013 10:35-0500 Systolic blood pressure 99 mm[Hg] Gabbie Mao [facility] [employer] [facility], [employer].; [employer]. Comment on above: Patient Position: Sitting; Cuff Location : Left Arm; Cuff Size: Standard 11-18-2012 14:29-0400 Body height 160.02 cm Malika Garcia LPN [employer] [facility], [facility].; [employer]. 11-18-2012 14:29-0400 Body mass index (BMI) [Ratio] 23.78 kg/m2 Malika Garcia [facility] [employer] [facility], [facility].; [employer], [employer]. 11-18-2012 14:29-0400 Body surface area Derived from formula 1.63 m2 Malika Garcia LPN [employer] [facility], [facility].; [employer]. 11-18-2012 14:29-0400 Body weight 60.9 kg [facility] [employer] [facility], [facility].; [employer]. 11-18-2012 14:29-0400 Diastolic blood pressure 72 mm[Hg] Malika Garcia [facility] [employer]. Comment on above: Patient Position: Sitting; Cuff Location : Left Arm; Cuff Size: Standard 11-18-2012 14:29-0400 Heart rate 92 /min Malika Garcia LPN [employer] [facility].; [employer]. Comment on above: Pattern: Regular 11-18-2012 14:29-0400 Systolic blood pressure 105 mm[Hg] Malika Garcia [facility] [employer] [facility].; [employer]. Comment on above: Patient Position: Sitting; Cuff Location : Left Arm; Cuff Size: Standard 10-22-2012 08:52-0400 Body weight 63.05 kg Patlana Mckinnon [facility] [employer] [facility].; [employer]. 10-22-2012 08:52-0400 Diastolic blood pressure 72 mm[Hg] Patlana [facility]ckinnon [facility].; [employer]. Comment on above: Patient Position: Sitting; Cuff Location : Left Arm; Cuff Size: Standard 10-22-2012 08:52-0400 Heart rate 99 /min Pat E Ino [facility] [employer] [facility].; [employer]. Comment on above: Pattern: Regular 10-22-2012 08:52-0400 Systolic blood pressure 106 mm[Hg] Pat Catalina Ino [facility].; [employer]. Comment on above: Patient Position: Sitting; Cuff Location : Left Arm; Cuff Size: Standard 05-12-2012 08:11-0500 Body height 160.02 cm Zacarias Lieberman MD Work Phone: [employer]. 05-12-2012 08:11-0500 Body mass index (BMI) [Ratio] 25.83 kg/m2 Zacarias Lieberman MD Work Phone: [employer].; [employer]. 05-12-2012 08:11-0500 Body surface area Derived from formula 1.69 m2 Zacarias Lieberman MD Work Phone: [employer].; [employer]. 05-12-2012 08:11-0500 Body temperature 97.2 [degF] Zacarias Lieberman MD Work Phone: [employer]. Comment on above: Method: Tympanic 05-12-2012 08:11-0500 Body weight 66.13 kg Zacarias Lieberman MD Work Phone: [employer] [facility].; [employer]. 05-12-2012 08:11-0500 Diastolic blood pressure 66 mm[Hg] Zacarias Lieberman MD Work Phone: [facility].; [employer]. Comment on above: Patient Position: Sitting; Cuff Location : Left Arm; Cuff Size: Standard 05-12-2012 08:11-0500 Heart rate 84 /min Zacarias Lieberman MD Work Phone: [facility].; [employer]. Comment on above: Pattern: Regular 05-12-2012 08:11-0500 Systolic blood pressure 106 mm[Hg] Zacarias Lieberman MD Work Phone: [facility].; [employer]. Comment on above: Patient Position: Sitting; Cuff Location : Left Arm; Cuff Size: Standard 02-04-2012 08:49-0400 Body height 160.02 cm Malika Garcia INDUCTION MACHINE OPERATOR [facility], [facility].; [employer]. 02-04-2012 08:49-0400 Body mass index (BMI) [Ratio] 23.96 kg/m2 Malika Garcia [facility].; [employer]. 02-04-2012 08:49-0400 Body surface area Derived from formula 1.64 m2 Malika Garcia [facility].; [employer]. 02-04-2012 08:49-0400 Body temperature 97.7 [degF] Malika Garcia [facility].; [employer]. Comment on above: Method: Tympanic 02-04-2012 08:49-0400 Body weight 61.35 kg Malika Garcia INDUCTION MACHINE OPERATOR [facility], [facility].; [employer] [facility]. 01-20-2011 09:58-0400 Body height 157.48 cm Pat Mckinnon INDUCTION MACHINE OPERATOR [facility], [facility].; [employer]. 01-20-2011 09:58-0400 Body mass index (BMI) [Ratio] 25.06 kg/m2 Pat Mckinnon INDUCTION MACHINE OPERATOR [facility], [facility].; [employer]. 01-20-2011 09:58-0400 Body surface area Derived from formula 1.63 m2 Pat Mckinnon JEREMI [facility], [facility].; [employer], [employer]. 01-20-2011 09:58-0400 Body weight 62.14 kg Pat Mckinnon INDUCTION MACHINE OPERATOR [facility] [employer]. 01-20-2011 09:58-0400 Diastolic blood pressure 68 mm[Hg] Pat Mckinnon JEREMI [facility], [employer].; [employer]. Comment on above: Patient Position: Sitting; Cuff Location : Left Arm; Cuff Size: Standard 01-20-2011 09:58-0400 Heart rate 75 /min Pat Mckinnon JEREMI [facility], [employer].; [employer]. Comment on above: Pattern: Regular 01-20-2011 09:58-0400 Systolic blood pressure 99 mm[Hg] Pat Mckinnon INDUCTION MACHINE OPERATOR [employer] [facility], [employer].; [employer]. Comment on above: Patient Position: Sitting; Cuff Location : Left Arm; Cuff Size: Standard 12-30-2010 14:27-0400 Body weight 62.14 kg Pat Mckinnon JEREMI [facility], [employer].; [employer]. 12-30-2010 14:27-0400 Diastolic blood pressure 62 mm[Hg] Pat Mckinnon LPN [employer] [facility], [employer].; [employer]. Comment on above: Patient Position: Sitting; Cuff Location : Left Arm; Cuff Size: Standard 12-30-2010 14:27-0400 Heart rate 77 /min Pat Mckinnon JEREMI [employer] [facility], [employer].; [employer]. Comment on above: Pattern: Regular 12-30-2010 14:27-0400 Systolic blood pressure 99 mm[Hg] Pat Mckinnon LPN [employer] [facility], [employer].; [employer]. Comment on above: Patient Position: Sitting; Cuff Location : Left Arm; Cuff Size: Standard Encounters Encounter Date Encounter Type Care Provider Facility Start: 01-16-2025 ambulatory Nasrin Sanderson Facility:[facility] Start: 01-16-2025 Non-patient / Non-visit Dr. Ridge Sanderson MD -[facility] Start: 01-12-2025 ambulatory Nasrin Kin Facility:[facility] Start: 01-12-2025 Non-patient / Non-visit Dr. Ridge Sanderson MD -[facility] Start: 01-12-2025 End: 01-12-[address] Juan Carolina MD Work Phone: -Cardiovascular Services Start: 01-12-2025 End: 01-12-[address] Nasrin Sanderson MD -Cardiovascular Services Work Phone: Start: 01-12-2025 End: 01-12-2025 ambulatory Nasrin [facility] Facility:[facility] Start: 12-08-2024 End: 12-08-[address] Nasrin Sanderson MD -[facility] Work Phone: Start: 12-08-2024 End: 12-08-[address] Juan Carolina MD Work Phone: [facility] Work Phone: Start: 11-23-2024 ambulatory Nasrin Kin Facility:[facility] Start: 11-04-2024 End: 01-04-2025 Follow-up encounter Scarlet Ha MD Work Phone: Neurology Start: 11-04-2024 ambulatory SCARLET HA Facil ity:[facility] Start: 11-04-2024 End: 11-04-2024 Subsequent hospital visit by physician [employer] [facility] (I-Stat/1.5t) Work Phone: Radiology Comment on [...] Juan Carolina MD Work Phone: [facility] [place] Start: 10-20-2024 End: 10-20-2024 ambulatory Juan Carolina MD Work Phone: [facility] [place] Comment on above: History of PSVT (par oxysmal supraventricular tachycardia) (Primary Dx); Abnormal laboratory test result; Abnormal head movements; Chronic low blood pressure; Ischemic colitis (HCC) Start: 10-19-2024 End: 10-19-2024 Patient encounter procedure Fely Comer MD Work Phone: Ophthalmology Comment on above: Glaucoma suspect of both eyes (Primary Dx); Optic nerve cupping of both eyes Start: 10-19-2024 End: 10-19-2024 ambulatory JUAN CAROLINA Facility:[facility] Start: 10-19-2024 End: 10-19-2024 Emergency department patient visit Dr. Juan Carolina MD Work Phone: -Emergency Department Work Phone: Start: 09-14-2024 End: 09-14-2024 Patient encounter procedure Malika AGUILERA -[facility] Work Phone: Start: 09-14-2024 End: 09-14-2024 ambulatory Malika Jones [facility] Start: 07-21-2024 End: 07-21-2024 ambulatory JUAN CAROLINA Facility:[facility] Start: 07-21-2024 End: 07-21-2024 Patient encounter procedure Renetta Birmingham APRN.CONFIGURATION DEVELOPER Work Phone: OB/Gynecology Comment on above: Encounter for gyneco logical examination (general) (routine) without abnormal findings (Primary Dx); Encounter for screening mammogram for breast cancer; Vaginal odor; Menopausal symptoms Start: 07-21-2024 End: 07-21-2024 Patient encounter status Renetta Birmingham APRN.CONFIGURATION DEVELOPER Work Phone: [facility] Start: 05-29-2024 End: 05-29-2024 Emergency department patient visit Tunde Bedolla Facility:[facility] Start: 05-05-2024 End: 05-05-2024 ambulatory Malika Jones [facility] Start: 05-05-2024 End: 05-05-2024 ambulatory Malika Jones Facility:[facility] Start: 04-19-2024 ambulatory Jose Rodriguez Facility [facility] Start: 04-18-2024 ambulatory Karissa Hernandez Facility :[facility] Start: 04-18-2024 End: 04-20-2024 Evaluation and management of inpatient Karissa Hernandez Facility:[facility] Start: 11-10-2023 End: 11-10-2023 ambulatory JUAN CAROLINA Facility:[facility] Start: 11-10-2023 End: 11-10-2023 Patient encounter procedure Juan Carolina MD Work Phone: [facility] [place] Comment on above: Class 1 obesity with [...] Juan Carolina MD Work Phone: [facility] [place] Comment on above: Obesity, Class I, BM I 30-34.9 (Primary Dx); Hyperlipidemia, mixed Start: 09-03-2023 End: 09-03-2023 Patient encounter procedure Jamee Hernandez APRN.CNP Work Phone: OB/Gynecology Comment [...] PUENTE Start: 07-23-2023 Telephone encounter Renetta alan PSYCHIATRIC TECHNICIAN ASSISTANT.CONFIGURATION DEVELOPER Work Phone: OB/Gynecology Comment on above: Orders Refill Request Start: 06-26-2023 End: 06-26-2023 ambulatory JUANITA MARSHALL Facility:[facility] Start: 06-25-2023 End: 06-25-2023 Telephone follow-up Zacarias Lieberman MD Work Phone: [facility] Start: 06-09-2023 End: 06-09-2023 Evaluation and management of inpatient NADINE FLYCKT Facility:[facility] Start: 06-08-2023 Evaluation and manag ement of inpatient NADINE FLYCKT Facility:[facility] Start: 06-07-2023 Emergency department patient visit NADINE FLYCKT Facility:[facility] Start: 06-07-2023 End: 06-07-2023 Emergency department patient visit [facility] Department Work Phone: Start: 04-17-2022 End: 04-17-2022 Patient encounter procedure Zacarias Lieberman MD Work Phone: [employer] Start: 02-14-2022 End: 02-14-[address] Zacarias Lieberman Work Phone: [facility] Work Phone: Start: 02-14-2022 End: 02-14-[address] Zacarias Lieberman Work Phone: [facility]Laboratory Start: 02-14-2022 End: 02-14-[address] Zacarias Lieberman Work Phone: [facility] Start: 01-27-2022 End: 01-27-2022 Patient encounter status Zacarias Lieberman MD Work Phone: [employer]; [employer] Start: 01-27-2022 End: 01-27-2022 Periodic preventive med est patient 40-64yrs Zacarias Lieberman MD Work Phone: [employer] Start: 01-20-2022 End: 01-20-2022 Orders Zacarias Lieberman MD Work Phone: [employer]. Start: 01-14-2022 End: 01-14-2022 Orders Zacarias Lieberman MD Work Phone: [employer] Start: 01-02-2022 End: 01-02-2022 Office outpatient visit 15 minutes Zacarias Lieberman MD Work Phone: [employer] Start: 12-27-2021 Non-patient / Non-visit Dr. Adolph Lieberman Work Phone: [facility] [facility] Start: 12-27-2021 End: 12-27-2021 Non-patient / Non-visit Dr. Zacarias Lieberman Work Phone: [facility] Start: 12-26-2021 End: 12-27-2021 Evaluation and management of inpatient [facility]Progressive Care Unit Start: 07-30-2021 End: 07-30-2021 Medication Zacarias Lieberman MD Work Phone: [employer] Start: 08-06-2020 End: 08-01-2020 Historical Summary Zacarias Lieberman MD Work Phone: [employer]. Start: 08-06-2020 End: 08-06-2020 Patient encounter status Zacarias Lieberman MD Work Phone: [employer] Start: 08-06-2020 End: 08-06-2020 Periodic preventive med est patient 40-64yrs Zacarias Lieberman MD Work Phone: [employer]. Start: 07-30-2020 End: 07-30-2020 Orders Zacarias Lieberman MD Work Phone: [employer]. Start: 07-09-2020 End: 07-09-2020 Orders Zacarias Lieberman MD Work Phone: [employer]. Start: 07-03-2020 End: 07-03-2020 Office outpatient visit 15 minutes Zacarias Lieberman MD Work Phone: [employer]. Start: 08-10-2019 End: 08-10-2019 Office outpatient visit 15 minutes Zacarias Lieberman MD Work Phone: [employer]. Start: 10-18-2018 End: 10-18-2018 Office outpatient visit 15 minutes Zacarias Lieberman MD Work Phone: [employer]. Start: 04-20-2018 End: 04-20-2018 Office outpatient visit 15 minutes Zacarias Lieberman MD Work Phone: [employer]. Start: 04-07-2018 End: 04-07-2018 Office outpatient visit 15 minutes Zacarias Lieberman MD Work Phone: [employer]. Start: 09-08-2017 End: 09-08-2017 Office outpatient visit 15 minutes Zacarias Lieberman MD Work Phone: [employer]. Start: 08-11-2017 End: 08-11-2017 Historical Summary Zacarias Lieberman MD Work Phone: [employer] Start: 07-06-2017 End: 07-06-2017 Office outpatient visit 15 minutes Zacarias Lieberman MD Work Phone: [employer] Start: 03-27-2017 End: 03-27-2017 Emergency department patient visit MD FELI MAJANO Facility:[facility] Start: 10-17-2016 End: 10-17-2016 Office outpatient visit 15 minutes Zacarias Lieberman MD Work Phone: [employer] Start: 07-25-2016 End: 07-25-2016 Office outpatient visit 15 minutes Zacarias Lieberman MD Work Phone: [employer] Start: 01-19-2016 End: 02-01-2016 Orders Zacarias Lieberman MD Work Phone: [employer] Start: 11-05-2015 End: 11-05-2015 Medication Zacarias Lieberman MD Work Phone: [employer] Start: 09-13-2015 End: 09-13-2015 Medication Zacarias Lieberman MD Work Phone: [employer] Start: 08-22-2015 End: 08-22-2015 Medication Zacarias Lieberman MD Work Phone: [employer] Start: 08-01-2015 End: 08-01-2015 Patient encounter status Zacarias Lieberman MD Work Phone: [employer] Start: 08-01-2015 End: 08-01-2015 Periodic preventive med est patient 40-64yrs Zacarias Lieberman MD Work Phone: [employer] Start: 07-26-2015 End: 07-27-2015 Orders Zacarias Lieberman MD Work Phone: [employer] Start: 07-25-2015 End: 07-25-2015 Orders Zacarias Lieberman MD Work Phone: [employer] Start: 07-24-2015 End: 07-24-2015 Medication Zacarias Lieberman MD Work Phone: [employer] Start: 04-18-2015 End: 04-18-2015 Medication Zacarias Lieberman MD Work Phone: [employer]. Start: 04-16-2015 End: 04-16-2015 Office outpatient visit 15 minutes Zacarias Lieberman MD Work Phone: [employer]. Start: 02-14-2015 End: 02-14-2015 Medication Zacarias Lieberman MD Work Phone: [employer]. Start: 01-12-2015 End: 01-12-2015 Medication Zacarias Lieberman MD Work Phone: [employer]. Start: 12-29-2014 End: 12-29-2014 Office outpatient visit 15 minutes Zacarias Lieberman MD Work Phone: [employer]. Start: 11-03-2014 End: 11-03-2014 Medication Zacarias Lieberman MD Work Phone: [employer]. Start: 08-25-2014 End: 08-25-2014 Office outpatient visit 15 minutes Zacarias Lieberman MD Work Phone: [employer]. Start: 08-07-2014 End: 08-07-2014 Medication Zacarias Lieberman MD Work Phone: [employer]. Start: 07-17-2014 End: 07-17-2014 Medication Zacarias Lieberman MD Work Phone: [employer]. Start: 06-02-2014 End: 06-02-2014 Medication Zacarias Lieberman MD Work Phone: [employer]. Start: 04-07-2014 End: 04-07-2014 Medication Zacarias Lieberman MD Work Phone: [employer]. Start: 02-13-2014 End: 02-13-2014 Medication Zacarias Lieberman MD Work Phone: [employer]. Start: 01-06-2014 End: 01-06-2014 Medication Zacarias Lieberman MD Work Phone: [employer]. Start: 12-15-2013 End: 12-16-2013 Patient encounter procedure Zacarias Lieberman MD Work Phone: [employer]. Start: 11-11-2013 End: 11-11-2013 Medication Zacarias Lieberman MD Work Phone: [employer]. Start: 09-26-2013 End: 09-26-2013 Medication Zacarias Lieberman MD Work Phone: [employer]. Start: 08-03-2013 End: 08-03-2013 Medication Zacarias Lieberman MD Work Phone: [employer]. Start: 06-03-2013 End: 06-03-2013 Medication Zacarias Lieberman MD Work Phone: [employer]. Start: 05-02-2013 End: 05-02-2013 Medication Zacarias Lieberman MD Work Phone: [employer]. Start: 04-27-2013 End: 04-27-2013 Patient encounter procedure Zacarias Lieberman MD Work Phone: [employer]. Start: 03-28-2013 End: 03-28-2013 Medication Zacarias Lieberman MD Work Phone: [employer]. Start: 02-18-2013 End: 02-18-2013 Medication Zacarias Lieberman MD Work Phone: [employer]. Start: 01-15-2013 End: 01-15-2013 Medication Zacarias Lieberman MD Work Phone: [employer]. Start: 12-10-2012 End: 12-10-2012 Medication Zacarias Lieberman MD Work Phone: [employer]. Start: 11-18-2012 End: 11-18-2012 Patient encounter procedure Zacarias Lieberman MD Work Phone: [employer]. Start: 11-10-2012 End: 11-10-2012 Medication Zacarias Lieberman MD Work Phone: [employer]. Start: 10-22-2012 End: 10-22-2012 Patient encounter procedure Zacarias Lieberman MD Work Phone: [employer]. Start: 10-05-2012 End: 10-05-2012 Medication Zacarias Lieberman MD Work Phone: [employer]. Start: 07-27-2012 End: 07-27-2012 Medication Zacarias Lieberman MD Work Phone: [employer]. Start: 05-12-2012 End: 05-12-2012 Patient encounter procedure Zacarias Lieberman MD Work Phone: [employer]. Start: 02-04-2012 End: 02-04-2012 Medication Zacarias Lieberman MD Work Phone: [employer]. Start: 02-04-2012 End: 02-04-2012 Patient encounter procedure Zacarias Lieberman MD Work Phone: [employer]. Start: 12-10-2011 End: 12-10-2011 Medication Zacarias Lieberman MD Work Phone: [employer]. Start: 05-27-2011 End: 05-27-2011 Medication Zacarias Lieberman MD Work Phone: [employer]. Start: 04-09-2011 End: 04-09-2011 Medication Zacarias Lieberman MD Work Phone: [employer]. Start: 02-21-2011 End: 02-21-2011 Medication Zacarias Lieberman MD Work Phone: [employer]. Start: 01-20-2011 End: 01-20-2011 Patient encounter procedure Zacarias Lieberman MD Work Phone: [employer]. Start: 01-20-2011 End: 01-20-2011 Patient encounter status Zacarias Lieberman MD Work Phone: [employer] Start: 12-30-2010 End: 12-30-2010 Patient encounter procedure Zacarias Lieberman MD Work Phone: [employer]. Start: 12-30-2010 End: 12-30-2010 Medication Zacarias Lieberman MD Work Phone: [employer]. Start: 12-25-2010 End: 12-25-2010 Orders Zacarias Lieberman MD Work Phone: [employer] Start: 09-18-2010 End: 09-18-2010 Medication Zacarias Lieberman MD Work Phone: [employer]. Start: 08-15-2010 End: 08-15-2010 Medication Zacarias Lieberman MD Work Phone: [employer] Start: 07-01-2010 End: 07-01-2010 Medication Zacarias Lieberman MD Work Phone: [employer] Start: 04-05-2010 End: 04-05-2010 Medication Zacarias Lieberman MD Work Phone: [employer] Start: 04-05-2010 End: 04-05-2010 Historical Summary Zacarias Lieberman MD Work Phone: [employer] Start: 02-13-2010 End: 02-13-2010 Historical Summary Zacarias Lieberman MD Work Phone: [employer] Patient encounter status Gabbie Mao LPN [employer] Patient encounter status Zacarias Lieberman MD Work Phone: [employer]; [employer]. Procedures Date Procedure Procedure Detail Performing Clinician Start: 01-12-2025 Radionuclide imaging of perfusion of myocardium under exercise stress Dr. Juan Carolina MD Work Phone: Start: 11-04-2024 Mri brain brain stem w/o [...] panel - S bossman or Plasma Renetta Valencia PSYCHIATRIC TECHNICIAN ASSISTANT.CONFIGURATION DEVELOPER Work Phone: Start: 01-27-2022 End: 01-27-2022 Depression screening Zacarias Lieberman MD Work Phone: Start: 01-27-2022 End: 01-27-2022 Scr dep neg, no plan reqd Zacarias Lieberman MD Work Phone: Start: 01-20-2022 End: 01-20-2022 Comprehensive metabolic 2000 panel - Serum or Plasma Sally Chen INDUCTION MACHINE OPERATOR Start: 01-20-2022 End: 01-20-2022 Lab findings surveillance Sally correia INDUCTION MACHINE OPERATOR Comment on above: 89 Start: 01-20-2022 End: [...] Flu imm no admin doc josette Zacarias Masters Work Phone: Start: 09-08-2017 End: 09-08-2017 Body mass index documented Zacarias Lieberman MD Work Phone: Start: 04-02-2017 Colonoscopy Renetta Margy alan PSYCHIATRIC TECHNICIAN ASSISTANT.CONFIGURATION DEVELOPER Work Phone: Start: 01-24-2014 End: 01-24-2014 Screening for malignant neoplasm of large intestine Sally Chen INDUCTION MACHINE OPERATOR Comment on above: Within Normal Limits . colonoscpy ~ 2013 Start: 11-18-2012 End: 11-18-2012 Dexamethasone sodium phos Geri J Flaca mcmanus PA-C Work Phone: Start: 02-04-2012 End: 02-04-2012 Triamcinolone acet inj NOS Zacarias Lieberman MD Work Phone: Appendectomy Sally Archuleta ey INDUCTION MACHINE OPERATOR Comment on above: had it twice ( stump was missed first time ) Enteric Bacteriology Dr. Wil Lieberman Work Phone: foot surgery Sally Archuleta ey INDUCTION MACHINE OPERATOR Comment on above: R foot, bunion, has pin in place Laboratory test resu lt abnormal Abnormal laboratory test result Juan Carolina MD Work Phone: Laparoscopy Sally Archuleta ey INDUCTION MACHINE OPERATOR Comment on above: endometriosis x 2 and 2015 Total hysterectomy Sally Chen INDUCTION MACHINE OPERATOR Plan of Treatment Date Care Activity Detail Author Start: 06-18-2028 Lipid panel Lipid Screening [facility] Start: 06-09-2028 Screening for malignant neoplasm of colon Sigmoidoscopy [facility] Start: 04-21-2027 Screening for malignant neoplasm of colon [facility] Start: 04-02-2027 Screening for malignant neoplasm of colon [facility] Start: 06-18-2026 Diabetes Screening Diabetes Screening [facility] Start: 12-13-2024 End: 12-13-2024 Patient encounter procedure 12/13/2024 2:15 PM EDT Office Visit [facility] [address] [place] [address] Fely Comer MD [address] [place] [address] Glaucoma suspect/OCT and VF Ophthalmology Comment on above: Glaucoma suspect/OCT and VF Start: 12-08-2024 Patient referral [facility] Work Phone: Start: 11-04-2024 End: 11-04-2024 Patient encounter procedure 11/04/2024 7:30 AM EDT Appointment Radiology [address] [place] [address] Abnormal head movements [R25.0] Radiology Comment on above: Abnormal head movements [R25.0] Start: 10-27-2024 End: 01-26-2025 CBC W Auto Differential panel - Blood COMPLETE BLOOD COUNT AND DIFFERENTIAL Lab Routine Abnormal laboratory test result Expected: 10/27/2024, Expires: 01/26/2025 [facility] Work Phone: Comment on above: Expected: 10/27/2024, Expires: Start: 10-19-2024 [facility] Start: 10-19-2024 Thyroid stimulating hormone measurement [facility] Start: 09-28-2024 Anxiety Screening Anxiety Screening [facility] Start: 09-28-2024 Depression Screening Depression Screening [facility] Start: 07-18-2024 End: 07-18-2024 Patient encounter procedure 07/18/2024 1:00 PM EST Office Visit OB/Gynecology [address] [place] [address] Renetta Birmingham, PSYCHIATRIC TECHNICIAN ASSISTANT.CONFIGURATION DEVELOPER [address] [place] [address] Annual OB/Gynecology Comment on above: Annual Start: 07-01-2024 Screening for malignant neoplasm of breast Mammogram Screening [facility] Start: 12-22-2023 End: 12-22-2023 Patient encounter procedure 12/22/2023 4:00 PM EDT Office Visit OB/Gynecology [address] [place] [address] Jamee Hernandez, PSYCHIATRIC TECHNICIAN ASSISTANT.CONFIGURATION DEVELOPER [address] [place] [address] wt mgmt f/up OB/Gynecology Comment on above: wt mgmt f/up Start: 12-07-2023 End: 12-07-2023 Patient encounter procedure 12/07/2023 5:00 PM EDT Office Visit [facility] [place] [address] [place] [address] Juan Carolina MD [address] [place] [address] 4 week follow-up [facility] [place] Comment on above: 4 week follow-up Start: 01-01-2024 Depression Assessment Depression Assessment [facility] Start: 06-07-2023 [facility] Start: 01-27-2022 Screening mammography bi 2-view breast inc cad Mammogram Bilateral Screening Digital w/CAD (02176) Start: 27-Jan-2022 [facility] [employer]. Start: 12-27-2021 Patient discharge [facility] Work Phone: Start: 12-27-2021 [facility] Work Phone: Start: 12-26-2021 Application of intermittent pneumatic compression device [facility] Work Phone: Start: 12-26-2021 Following clinical pathway protocol [facility] Work Phone: Start: 12-26-2021 Assessment of risk of venous thromboembolism [facility] Work Phone: Start: 12-26-2021 Insertion of catheter into peripheral vein [facility] Work Phone: Start: 12-26-2021 Oxygen therapy [facility] Work Phone: Start: 12-26-2021 Providing care according to standard [facility] Work Phone: Start: 12-26-2021 Provision of activity privileges [facility] Work Phone: Start: 12-26-2021 [facility] Work Phone: Start: 12-26-2021 Verification routine [facility] Work Phone: Start: 12-26-2021 Admission procedure [facility] Work Phone: Start: 2020 Pneumococcal Vaccine: 50+ (1 of 1 - PCV) Pneumococcal Vaccine: 50+ (1 of 1 - PCV) [facility] Start: 08-06-2020 Screening mammography bi 2-view breast inc cad Mammogram Bilateral Screening (73381) Start: 06-Aug-2020 Intent [employer] [facility] [employer]. Start: 12-29-2018 Screening for malignant neoplasm of cervix Pap Testing [facility] Start: 11-16-2015 Screening for malignant neoplasm of cervix HPV Testing [facility] Start: 09-25-2015 Screening for malignant neoplasm of colon [facility] Start: 1988 Hepatitis C screening Hepatitis C Screening [facility] Start: 1988 HIV screening HIV Screening [facility] Alanine aminotransfe rase [Enzymatic activity/volume] in Serum or Plasma [facility] Albumin [Mass/volume ] in Serum or Plasma [facility] Alkaline phosphatase [Enzymatic activity/volume] in Serum or Plasma [facility] Anion gap in Serum o r Plasma [facility] Anion gap measurement [facility] Aspartate aminotransferase [Enzymatic activity/volume] in Serum or Plasma [facility] BACTERIAL VAGINOSIS NAAT BACTERI AL VAGINOSIS NAAT Lab Routine Vaginal odor 07/21/2024 9:49 AM EST [facility] Bilirubin, total measurement [facility] BUN/Creatinine ratio [facility] BUN/Creatinine ratio [facility] Calcium [Mass/volume ] in Serum or Plasma [facility] Calcium [Mass/volume ] in Serum or Plasma [facility] SAMUEL/TRICHOMONAS NAAT SAMUEL /TRICHOMONAS NAAT Lab Routine Vaginal odor 07/21/2024 9:49 AM EST [facility] Carbon dioxide, tota l [Moles/volume] in Central venous blood [facility] Carbon dioxide, tota l [Moles/volume] in Serum or Plasma [facility] Chloride [Moles/volu me] in Serum or Plasma [facility] Choriogonadotropin.b eta subunit ( test) [Presence] in Serum or Plasma [facility] Creatinine [Mass/vol ume] in Serum or Plasma [facility] Creatinine [Moles/volume] in Serum or Plasma [facility] CT Abdomen and Pelvis [facility] Work Phone: End: 08-20-2025 DBT Breast - bilateral screening JOVANNA SCREENING W SEAN Radiology Routine Encounter for gynecological examination (general) (routine) without abnormal findings Encounter for screening mammogram for breast cancer 1 Occurrences starting 07/21/2024 until 08/20/2025 [facility] Work Phone: Comment on above: 1 Occurrences starting 07/21/2024 until 08/20/2025 Glucose [Mass/volume ] in Serum or Plasma [facility] Glucose [Mass/volume ] in Serum or Plasma [facility] Hematocrit [Volume Fraction] of Blood [facility] Hemoglobin [Mass/vol ume] in Blood [facility] Leukocytes [#/volume ] in Blood [facility] Lipid 1996 panel - S bossman or Plasma [facility] Magnesium measurement [facility] Mean corpuscular hemoglobin concentration determination [facility] Mean corpuscular hemoglobin determination [facility] Measurement of renal function [facility] Measurement of renal function [facility] End: 11-24-2025 MR Brain WO contrast MRI BRAIN [facility] Radiology Routine Abnormal head movements 1 Occurrences starting 10/25/2024 until 11/24/2025 [facility] Work Phone: Comment on above: 1 Occurrences starting 10/25/2024 until 11/24/2025 Neutrophil count [facility] Neutrophil percent differential count [facility] Patient Education Supraventricul ar Tachycardia ED Palpitations [facility] Work Phone: Patient referral [facility] Work Phone: Platelets [#/volume] in Blood [facility] Potassium [Moles/vol ume] in Serum or Plasma [facility] Potassium measurement [facility] Radionuclide imaging of perfusion of myocardium under exercise stress [facility] Red blood cell count [facility] Red cell distributio n width determination [facility] Serum chloride measurement [facility] Sodium [Moles/volume ] in Serum or Plasma [facility] Sodium measurement [facility] Total protein measurement [facility] Troponin T.cardiac [Mass/volume] in Serum or Plasma by High sensitivity method [facility] Urea nitrogen [Mass/volume] in Serum or Plasma [facility] Urea nitrogen [Mass/volume] in Serum or Plasma [facility] US Heart [facility] dexAMETHasone so d phos (bulk) 100 % powder Ordered: 04-Feb-2012 MD Zacarias Lieberman [facility], [employer]. dexAMETHasone so d phos (bulk) 100 % powder Ordered: 18-Nov-2012 ANDI Agee [facility], [facility] Payers Date Payer Category Payer Self-pay [id number] 2022 Private Health Insurance [employer] [id number] 2022 Unknown 2022 Unknown [id number] 2019 Unknown [id number] Unknown [id number] Unknown [id number] .[id number] Unknown [id number] .[id number] .2.462 Unknown [id number] ..[id number] .2.462 Unknown [id number] ..[id number] .2.462 Unknown [id number] ..[id number] .2.462 Unknown [id number] .[id number] .2.462 Unknown [id number] [id number] .2.462 Unknown [id number] .2.462 Unknown [id number] [id number] .2.462 Unknown [id number] [id number] .2.462 Unknown [id number] [id number] .2.462 Unknown [id number] [id number] .2.462 Unknown [id number] [id number] .2.462 Unknown [id number] [id number] .2.462 Unknown [id number] [id number] .2.462 Unknown [id number] .2.462 Social History Date Type Detail Facility Start: 12-26-2021 End: 10-21-2022 Tobacco smoking status NYIS Unknown if ever smoked [facility] Start: 1970 Sex Assigned At Female W [facility] Alcohol Use: Alcohol Use: ; None. [facility],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 Confidentiality of Alcohol and Drug Abuse Patient Records regulations: The Federal rules restrict any use of the information to criminally investigate or prosecute any alcohol or drug abuse patient.[facility] HospitalIn the event this information is protected by the Federal Confidentiality of Alcohol and Drug Abuse Patient Records regulations: The Federal rules restrict any use of the information to criminally investigate or prosecute any alcohol or drug abuse patient.[facility] HospitalIn the event this information is protected by the Federal Confidentiality of Alcohol and Drug Abuse Patient Records regulations: The Federal rules restrict any use of the information to criminally investigate or prosecute any alcohol or drug abuse patient.[facility] HospitalIn the event this information is protected by the Federal Confidentiality of Alcohol and Drug Abuse Patient Records regulations: The Federal rules restrict any use of the information to criminally investigate or prosecute any alcohol or drug abuse patient.[facility] HospitalIn the event this information is protected by the Federal Confidentiality of Alcohol and Drug Abuse Patient Records regulations: The Federal rules restrict any use of the information to criminally investigate or prosecute any alcohol or drug abuse patient.[facility] HospitalIn the event this information is protected by the Federal Confidentiality of Alcohol and Drug Abuse Patient Records regulations: The Federal rules restrict any use of the information to criminally investigate or prosecute any alcohol or drug abuse patient.[facility] HospitalIn the event this information is protected by the Federal Confidentiality of Alcohol and Drug Abuse Patient Records regulations: The Federal rules restrict any use of the information to criminally investigate or prosecute any alcohol or drug abuse patient.[facility] HospitalIn the event this information is protected by the Federal Confidentiality of Alcohol and Drug Abuse Patient Records regulations: The Federal rules restrict any use of the information to criminally investigate or prosecute any alcohol or drug abuse patient.[facility] HospitalIn the event this information is protected by the Federal Confidentiality of Alcohol and Drug Abuse Patient Records regulations: The Federal rules restrict any use of the information to criminally investigate or prosecute any alcohol or drug abuse patient.[facility] HospitalIn the event this information is protected by the Federal Confidentiality of Alcohol and Drug Abuse Patient Records regulations: The Federal rules restrict any use of the information to criminally investigate or prosecute any alcohol or drug abuse patient.[facility] HospitalIn the event this information is protected by the Federal Confidentiality of Alcohol and Drug Abuse Patient Records regulations: The Federal rules restrict any use of the information to criminally investigate or prosecute any alcohol or drug abuse patient.[facility] HospitalIn the event this information is protected by the Federal Confidentiality of Alcohol and Drug Abuse Patient Records regulations: The Federal rules restrict any use of the information to criminally investigate or prosecute any alcohol or drug abuse patient.[facility] HospitalIn the event this information is protected by the Federal Confidentiality of Alcohol and Drug Abuse Patient Records regulations: The Federal rules restrict any use of the information to criminally investigate or prosecute any alcohol or drug abuse patient.[facility] HospitalIn the event this information is protected by the Federal Confidentiality of Alcohol and Drug Abuse Patient Records regulations: The Federal rules restrict any use of the information to criminally investigate or prosecute any alcohol or drug abuse patient.[facility] Reason for Visit (unrecogniz ed section [...] MIN POST OP DDI Juan Carolina MD [address] [place] [address] Anthony Kan MD [address] [place] [id number] Referral ID Status Reason Start Date Expiration Date Visits Re quested Visits Authorized [id number] Closed 08/28/2023 06/21/2024 1 1 Reason Onset [...] HIGH MDM 60 MINUTES Juan Carolina MD [address] [place] [address] Phone: tel: fax: Referral ID Status Reason Start Date Expiration Date V isits Requested Visits Authorized [id number] Closed PCP Requested Referral 10/20/2024 10/20/2025 1 1 Care Teams (unrecognized sec tion and content) Stitching Machine Operator Relationship Specialty Start Date End Date Juan Carolina MD [address] [facility], [place] [address] PCP - General Internal Medicine 06/18/23 Stitching Machine Operator Relationship Specialty Start Date End Date Juan Carolina MD [address] [place], [place] [address] [phone] PCP - General Internal Medicine 06/18/23 Stitching Machine Operator Relationship Specialty Start Date End Date Juan Carolina MD [address] [place], [place] [address] PCP - General Internal Medicine 06/18/23 Stitching Machine Operator Relationship Specialty Start Date End Date Juan Carolina MD [address] [place], [place] [id number] PCP - General Internal Medicine 06/18/23 Stitching Machine Operator Relationship Specialty Start Date End Date Juan Carolina MD [address] [place], [place] [id number] PCP - General Internal Medicine 06/18/23 Stitching Machine Operator Relationship Specialty Start Date End Date Juan Carolina MD [address] [place], [place] [address] [phone] PCP - General Internal Medicine 06/18/23 Stitching Machine Operator Relationship Specialty Start Date End Date Juan Carolina MD [address] [place], [place] [address] [phone] PCP - General Internal Medicine 06/18/23 Stitching Machine Operator Relationship Specialty Start Date End Date Juan Carolina MD [address] [place], [place] [id number] PCP - General Internal Medicine 06/18/23 Stitching Machine Operator Relationship Specialty Start Date End Date Juan Carolina MD [address] [place], [place] [id number] PCP - General Internal Medicine 06/18/23 Stitching Machine Operator Relationship Specialty Start Date End Date Juan Carolina MD [address] [place], [place] [address] PCP - General Internal Medicine 06/18/23 Team Status: Active Member Role Status Dates Dr. Zacarias Lieberman MD Family Provider Active No Primary Care Physician Primary Care Provider Active Team Status: Inactive Member Role Status Dates No Primary Care Physician Primary Care Provider Active Ed Physician Provider Emergency Provider Active Stitching Machine Operator Relationship Specialty Start Date End Date Juan Carolina MD [address] [place], [place] [address] PCP - General Internal Medicine 06/18/23 Frieda Crystal, PSYCHIATRIC TECHNICIAN ASSISTANT.CONFIGURATION DEVELOPER [address] [place], [place] [address] Field Crop Harvest Contractor Internal Medicine 05/30/24 Team Status: Active Member Role Status Dates Dr. Juan Carolina MD Primary Care Provider Active Team Status: Inactive Member Role Status Dates Dr. Juan Carolina MD Primary Care Provider Active Start: September 14, 2024 End: September 14, 2024 Dr. Juan Carolina MD Referring Provider Active Start: September 14, 2024 End: September 14, 2024 Malika Jones NP-C Attending Provider Active Start: September 14, 2024 End: September 14, 2024 Team Status: Inactive Member Role Status Dates Dr. Juan Carolina MD Primary Care Provider Active Start: October 19, 2024 End: October 19, 2024 Dr. Prosper Rodriguez DO Emergency Provider Active Start: October 19, 2024 End: October 19, 2024 Stitching Machine Operator Relationship Specialty Start Date End Date Juan Carolina MD [address] [place] [address] PCP - General Internal Medicine 06/18/23 Frieda Crystal, PSYCHIATRIC TECHNICIAN ASSISTANT.CONFIGURATION DEVELOPER [address] [place] [address] Field Crop Harvest Contractor Internal Medicine 05/30/24 [place] [address] [place], [place] [id number] Referring Optometry 10/12/24 Stitching Machine Operator Relationship Specialty Start Date End Date Juan Carolina MD [address] [place] [address] PCP - General Internal Medicine 06/18/23 Frieda Crystal, PSYCHIATRIC TECHNICIAN ASSISTANT.CONFIGURATION DEVELOPER [address] [place] [address] Field Crop Harvest Contractor Internal Medicine 05/30/24 [place] [address] [place] [address] Referring Optometry 10/12/24 Stitching Machine Operator Relationship Specialty Start Date End Date Juan Carolina MD [address] [place] [address] PCP - General Internal Medicine 06/18/23 Frieda Crystal, PSYCHIATRIC TECHNICIAN ASSISTANT.CONFIGURATION DEVELOPER [address] [place] [address] [employer] Internal Medicine 05/30/24 [place] [address] [place], [place] [id number] Referring Optometry 10/12/24 Stitching Machine Operator Relationship Specialty Start Date End Date Juan Carolina MD [address] [place] [address] PCP - General Internal Medicine 06/18/23 Frieda Crystal, PSYCHIATRIC TECHNICIAN ASSISTANT.CONFIGURATION DEVELOPER [address] [place] [address] [employer] Internal Medicine 05/30/24 [place] [address] [place] [address] Referring Optometry 10/12/24 Stitching Machine Operator Relationship Specialty Start Date End Date uJan Carolina MD [address] [place] [address] PCP - General Internal Medicine 06/18/23 Frieda Crystal, PSYCHIATRIC TECHNICIAN ASSISTANT.CONFIGURATION DEVELOPER [address] [place] [address] [employer] Contractor Internal Medicine 05/30/24 Rakan Adams, RIAZ [address] [place] [address] Referring Optometry 10/12/24 Team Status: Inactive Member [...] 08, 2024 End: December 08, 2024 Dr. Nasrin Sand[place] MD Attending Provider Active Start: December 08, 2024 End: December 08, 2024 Stitching Machine Operator Relationship Specialty Start Date End Date Juan Carolina MD [address] [place] [address] PCP - General Internal Medicine 06/18/23 Frieda Crystal, PSYCHIATRIC TECHNICIAN ASSISTANT.CONFIGURATION DEVELOPER [address] [place] [address] [employer] Contractor Internal Medicine 05/30/24 [place] [address] [place] [address] Referring Optometry 10/12/24 Team Status: Active Member Role/Relationship Status Dates Dr. Juan Carolina MD Primary Care Provider Active Team Status: Inactive Member Role/Relationship Status Dates Dr. Juan Carolina MD Primary Care Provider Active Start: October 19, 2024 End: October 19, 2024 Dr. Prosper Rodriguez DO Attending Provider Active Start: October 19, 2024 End: October 19, 2024 Dr. Prosper Rodriguez DO Emergency Provider Active Start: October 19, 2024 End: October 19, 2024 Team Status: Inactive Member Role/Relationship Status Dates Dr. Juan Carolina MD Primary Care Provider Active Start: December 08, 2024 End: December 08, 2024 Dr. Juan Carolina MD Referring Provider Active Start: December 08, 2024 End: December 08, 2024 Dr. Nasrin [place] MD Attending Provider Active Start: December 08, 2024 End: December 08, 2024 Team Status: Inactive Member Role/Relationship Status Dates Dr. Juan Carolina MD Primary Care Provider Active Start: January 12, 2025 End: January 12, 2025 Dr. Nasrin [place] MD Attending Provider Active Start: January 12, 2025 End: January 12, 2025 Dr. Nasrin Sand[place] MD Referring Provider Active Start: January 12, 2025 End: January 12, 2025 Team Status: Active Member Role/Relationship Status Dates Dr. Juan Carolina MD Primary Care Provider Active Start: January 12, 2025 Dr. Nasrin Sanderson MD Attending Provider Active Start: January 12, 2025 Team Status: Active Member Role/Relationship Status Dates Dr. Juan Carolina MD Primary Care Provider Active Start: January 16, 2025 Dr. Nasrin [place] MD Attending Provider Active Start: January 16, 2025 Dr. Nasrin Sand[place] MD Referring Provider Active Start: January 16, 2025 Dr. Nasrin Sand[place] MD Other Provider Active Star t: January 16, 2025 FOR RECORDS PERTAINING TO PATIENTS WHO ARE [...] BE BASED ON THE PRIMARY CLINICAL RECORDS. [facility] [employer] provides no warranty or guarantee of the accuracy or completeness of information in this document.
[2025-01-24 01:56] LABS: Anion Gap 15 (5-15); BUN 15 mg/dL (4-19); BUN/Creat Ratio 15.1 RATIO (10-20); Calcium,Total 9.4 mg/dL (7.6-11.0); Carbon Dioxide 20.1 mmol/L (21.0-32.0); Chloride 107 mmol/L (98-108); Estimated Creatinine Clearance 61.18 ml/min (50-250); Glucose 115 mg/dL (70-99); Potassium 4.6 mmol/L (3.3-5.1)
[2025-01-24 02:44] LABS: Color, Urine Yellow (Yellow); Glucose, Dipstick Normal (Normal); Ketone-Dipstick 5 mg/dl (Negative); Leukocyte Esterase-Dipstick Negative /ul (Negative); Nitrite-Dipstick Negative (Negative); Occult Blood-Urine 150 /ul (Negative); Protein-Dipstick 30 mg/dl (Negative); Specific Gravity, Urine 1.025 (1.002-1.030); Urine Bilirubin Dipstick Negative (Negative)
[2025-01-24 02:53] VITALS: BP 104/66; PULSE 96; RESP 16; O2SAT 94
[2025-01-24 02:54] LABS: Mucous, Urine 1+ /hpf (<or=2+); Red Blood Cells-Urine 10-25 SEEN /hpf (0-5); Squamous Epithelial Cells - UA 0-5 SEEN /hpf (5-10)
[2025-01-24 03:16] VITALS: BP 100/56; PULSE 95; RESP 16; TEMP 36.6; O2SAT 96
== END 2025-01-24 03:40 | disposition home or self-care (01) ==
PROVIDERS: Emergency Provider Emergency Medicine; PCP Internal Medicine; Visit Provider Emergency Medicine
DX: N20.0 Calculus of kidney (principal); F41.9 Anxiety disorder, unspecified; E78.2 Mixed hyperlipidemia; Z87.891 Personal history of nicotine dependence
CPT/HCPCS: 74176; 80048; 81001; 85025; 87086; 87088; 96361; 96374; 96375; 99283; A4216; J2405